=== PATIENT | female | born 1960 | race Caucasian/White ===

== ENCOUNTER 2020-11-30 13:06 | Outpatient (CLI) | payer MEDICAID, SELFPAY ==
--- NOTE | ~2020-11-30 | MM_ITS ---
EXAMINATION: MM screening patricia BI w prabhu HISTORY: Screening TECHNIQUE: Craniocaudal and mediolateral oblique 3-D tomosynthesis images were obtained and synthetic 2-D images were generated. CAD analysis was submitted and interpreted. COMPARISON: Comparison to multiple prior studies sequentially, with oldest reviewed study dated 04/28. BREAST PARENCHYMAL COMPOSITION: The breasts are almost entirely fatty. FINDINGS: There is no evidence of suspicious mass, calcification, or architectural distortion to sugg est malignancy in either breast. There has been no suspicious interval change. IMPRESSION: 1. No mammographic evidence of malignancy. 2. Recommend routine screening mammography in one year. BI-RADS Category 1: Negative Reviewed, dictated and finalized at location A.
== END 2020-11-30 13:07 | disposition home or self-care (01) ==
LOC: ANHIMG 13:09
PROVIDERS: PCP Family Medicine; Visit Provider Family Medicine
DX: Z12.31 Encounter for screening mammogram for malignant neoplasm of breast (principal)
CPT/HCPCS: 77063; 77067

== ENCOUNTER 2022-02-02 13:12 | Outpatient (CLI) | payer MEDICAID, SELFPAY ==
--- NOTE | ~2022-02-02 | XR_ITS ---
XR_CERV2-3V_CR DATE: 02/02/2022 13:37 INDICATION: Neck and thoracic back pain TECHNIQUE: AP, open-mouth, lateral views COMPARISON: None FINDINGS: C1 and C2 are normally aligned and the odontoid process is intact. No fracture or dislocati on or locked facet or prevertebral soft tissue swelling is evident. Moderately severe degenerative disc disease with posterior spurring at C5-6 and C6-7. There is uncove rtebral joint spurring at C4-5 and particularly prominently at C5-6 and C6-7. IMPRESSION: Cervical spondylosis Reviewed, dictated and finalized at Location A. Reviewed, dictated and finalized at location A. IMPRESSION: Cervical spondylosis
--- NOTE | ~2022-02-02 | XR_ITS ---
XR thoracic spine 3V DATE: 02/02/2022 13:37 INDICATION: Thoracic back pain TECHNIQUE: AP, lateral, swimmer views COMPARISON: None FINDINGS: There is mild to moderate degenerative spurring of the thoracic spine. No fracture or dislo cation or bone destruction. The thoracic pedicles are intact. No paraspinal soft tissue thickening. IMPRESSION: Mild to moderate degenerative spurring Reviewed, dictated and finalized at location A.
== END 2022-02-02 13:13 | disposition home or self-care (01) ==
LOC: ANHIMG 13:18
PROVIDERS: PCP Physician Assistant; Visit Provider Physician Assistant
DX: M54.2 Cervicalgia (principal); M54.6 Pain in thoracic spine; M77.8 Other enthesopathies, not elsewhere classified; M43.02 Spondylolysis, cervical region
CPT/HCPCS: 72040; 72072

== ENCOUNTER 2022-05-26 10:21 | Emergency (ER) | payer MEDICAID, SELFPAY ==
[2022-05-26 10:48] VITALS: BP 159/123; PULSE 108; RESP 18; TEMP 36.8; O2SAT 94
[2022-05-26 11:48] LABS: Basophils Absolute Auto 0.1 K/mm3 (0.0-0.1); Basophils Percent Auto 0.7 % (0.2-1.2); Eosinophils Absolute Auto 0.2 K/mm3 (0-0.3); Eosinophils Percent Auto 2.4 % (0-4.4); Hematocrit 45.4 % (37.0-47.0); Hemoglobin 15.1 g/dL (12.0-15.0); Immature Granulocyte Absolute 0.04 K/mm3 (0.00-0.031); Immature Granulocyte Percent A 0.5 % (0-0.5); Lymphocytes Absolute Auto 2.13 K/mm3 (0.9-3.2); Lymphocytes Percent Auto 25.4 % (18.3-44.2); Mean Corpuscular HGB Conc 33.3 g/dl (32-36); Mean Corpuscular Hemoglobin 31.3 pg (26-34); Mean Corpuscular Volume 94.2 fl (80-100); Mean Platelet Volume 8.9 fl (7.4-10.4); Monocytes Absolute Auto 0.6 K/mm3 (0.1-0.6); Monocytes Percent Auto 7.6 % (2.6-8.5); Neutrophils Absolute Auto 5.3 K/mm3 (1.3-6.7); Neutrophils Percent Auto 63.4 % (45.5-73.1); Platelet Count Result 363 k/mm3 (150-375); Red Blood Count 4.82 M/mm3 (4.2-5.4); Red Cell Distribution Width 14.9 % (11.5-14.5); White Blood Count 8.4 K/mm3 (4.5-10.0)
[2022-05-26 11:59] LABS: Lactic Acid Reflex 1.6 mmol/L (0.7-2.0)
[2022-05-26 12:45] LABS: INR 1.1; Prothrombin Time 13.4 Seconds (11.1-14.7)
[2022-05-26 12:46] LABS: Partial Thromboplastin Time 35.8 SECONDS (22.3-36.8)
[2022-05-26 13:24] LABS: Alanine Aminotransferase 22 U/L (6-35); Albumin Level 4.1 g/dL (3.5-5.1); Alkaline Phosphatase 120 U/L (38-126); Anion Gap 2 mmol/L (8-16); Aspartate Amino Transferase 30 U/L (14-36); Bilirubin,Total 0.5 mg/dL (0.2-1.3); Blood Urea Nitrogen 14 mg/dL (7-17); Calcium 9.5 mg/dL (8.4-10.2); Carbon Dioxide 34 mmol/L (22-30); Chloride 96 mmol/L (98-107); Estimated CRCL calculation 85 ml/min; Estimated Glomerular Filt Rate > 60; Glucose 117 mg/dL (65-110); Potassium 4.4 mmol/L (3.4-5.0); Sodium 132 mmol/L (137-145)
[2022-05-26] MEDS: SILVERGEL (ELTA) 45 ML 1 APPLIC TOPICAL (13:31)
--- NOTE | 2022-05-26 13:41 | ED.LOWEXIN ---
HPI - Extremity Injury (Lower) General Chief Complaint: Extremity Injury, Lower Stated Complaint: Wound check on Left leg from fall a few weeks ago Time Seen by Provider: 05/26/22 10:31 History of Present Illness HPI Narrative: Patient is a 61-year-old female who presents ER with a wound to her left peralta. She had a trip and fall 2 weeks ago when she was walking outside and skinned her peralta. She has not been treating it with any medications at home. Noticed today that it was black and malodorous. No fevers chills or sweats. No chest pain or chest pressure. No head trauma. Related Data Home Medications Medication Instructions Recorded Confirmed budesonide-formoterol HFA 160 2 puff inhalation .COMPLEX 09/08/19 mcg-4.5 mcg/actuation aerosol inhaler (Symbicort) Allergies Allergy/AdvReac Type Severity Reaction Status Date / Time sertraline Allergy Intermediate Itching Verified 07/21/15 15:43 Sulfa (Sulfonamide Allergy Unknown Unknown Verified 05/26/22 10:22 Antibiotics) Review of Systems Review of Systems: All systems reviewed & are unremarkable except as noted in HPI and below Constitutional: Constitutional: Denies chills, Denies fatigue and Denies fever(s) ENT: Denies nasal congestion and Denies sore throat Cardiovascular: Cardiovascular: Denies chest pain, Denies rapid heart rate and Denies radiating jaw, neck or arm pain Respiratory: Respiratory: Denies cough and Denies dyspnea Gastrointestinal: Gastrointestinal: Denies abdominal pain, Denies nausea and Denies vomiting Integumentary/Breasts: Skin/Breast: Denies pruritus and Denies rash Comments: wound to left peralta PMFSH Past Medical History Medical History (Updated 05/26/22 @ 13:56 by Dewayne Quintero MD) Anxiety disorder, unspecified Asthma with COPD (chronic obstructive pulmonary disease) Essential hypertension Major depressive disorder, recurrent, unspecified Nodule of left lung Screening for hyperlipidemia Family History Family History (Updated 12/24/10 @ 16:39 by DOCTOR UNKNOWN) Other Diabetes mellitus Hypertension Social History Social History Smoking status: Current every day smoker Alcohol intake: current Exam Narrative: GENERAL: Well-appearing, well-nourished, and in no acute distress. HEAD: Normocephalic, atraumatic. CHEST: Clear to auscultation. No respiratory distress. HEART: Regular rate and rhythm. Normal peripheral pulses. EXTREMITIES: Normal range of motion. No edema. SKIN: Warm, dry. Nonhealing wound to the left peralta. There is a flap laceration that measures 15 cm that is black and necrotic and dry. Beneath it is some foul-smelling tissue. The wound edges that are not involved with flap also has some early necrosis. No surrounding cellulitis or lymphangitic streaking. NEURO: Alert and oriented x3. PSYCH: Normal mood and affect. Course Course Emergency Course: Patient resting comfortably. Silver gel applied to her wound. Discussed case with Dr. Gallegos with general surgery. Recommend silver gel application and follow-up in clinic next week. Patient agreeable to plan. No additional concerns. Normal lactate and white count. Vital Signs Vital signs: Vital Signs Temperature 98.3 F 05/26/22 10:48 Pulse Rate 108 H 05/26/22 10:48 Respiratory Rate 18 05/26/22 10:48 Blood Pressure 159/123 H 05/26/22 10:48 Pulse Oximetry 94 05/26/22 10:48 Oxygen Delivery Room Air 05/26/22 10:48 Temperature 98.3 F 05/26/22 10:48 Pulse Rate 108 H 05/26/22 10:48 Respiratory Rate 18 05/26/22 10:48 Blood Pressure 159/123 H 05/26/22 10:48 Pulse Oximetry 94 05/26/22 10:48 Oxygen Delivery Room Air 05/26/22 10:48 MDM - Extremity Injury (Lower) Lab Data 05/26/22 11:39 05/26/22 12:29 Labs: Lab Results 05/26/22 05/26/22 05/26/22 Range/Units 11:39 11:39 12:29 WBC 8.4 (4.5-10.0) K/mm3 RBC 4.82 (4.2-5.4) M/mm3 Hgb 15.1 H
[2022-05-26 14:14] VITALS: BP 143/96; PULSE 99; RESP 20; O2SAT 100
== END 2022-05-26 14:17 | disposition home or self-care (01) ==
PROVIDERS: Emergency Provider Emergency Medicine; PCP Physician Assistant
DX: S81.802A Unspecified open wound, left lower leg, initial encounter (principal); I10 Essential (primary) hypertension; F41.9 Anxiety disorder, unspecified; F33.9 Major depressive disorder, recurrent, unspecified; F17.200 Nicotine dependence, unspecified, uncomplicated; W01.0XXA Fall on same level from slipping, tripping and stumbling without subsequent striking against object, initial encounter
CPT/HCPCS: 36415; 80053; 83605; 85025; 85610; 85730; 87040; 87070; 87205; 99283

== ENCOUNTER 2022-08-08 12:45 | Outpatient (RCR) | payer MEDICAID, SELFPAY ==
--- NOTE | 2022-07-03 13:14 | PTOPEVAL1 ---
Assessment and note entered by Anil Noonan, PT Evaluation Information Assessment Status Evaluation Diagnosis muscle weakness Subjective Information Patient reports she has been having trouble with stairs, walking, getting out of low chairs, and getting off the floor, the last two unable to do without assistance. She reports also having endurance issues unsure if it is just seasonal allergy or what, but easily getting short of breath. Also was told she has degenerative disc disease in her lower back. No actual falls yet. Assessment PT Clinical Summary Sherri is a 61 year old female coming into the clinic with a diagnosis of lower extremity weakness. The patient has weakness in JUAN M hip extension and abduction and the knee with the R side weaker than the L side, showing S/S of some sort of back impingement. Physical therapy will work on lower extremity strengthening along with core strengthening and working on endurance. Plan of Care Interventions Electrical Stimulation,Gait Training,Hot Pack/Cold Pack,Manual Therapy,Mechanical Traction,Neuro Re- education,Patient/Caregiver Education,Therapeutic Activities,Therapeutic Exercise,Ultrasound Other Interventions taping, cupping, and IASTM PT Services Indicated Yes Treatment Frequency and 1-2x/wk for 4 weeks Duration These treatments will address the objective and functional deficits as defined above. The patient will be advanced safely and appropriately in order for the patient to progress towards his/her prior level of function. Additional exercises will be introduced and as well as a comprehensive home exercise program upon discharge, if needed, ?to ensure carryover of functional gains achieved in the clinic. This treatment plan has been reviewed and agreement upon by the patient.
--- NOTE | 2022-07-06 08:01 | PCPTNOTE ---
Patient called & cancelled scheduled appointment this date due to being sick.
--- NOTE | 2022-08-08 13:19 | PTOPDC ---
Assessment and note entered by Anil Noonan, PT Evaluation Information Assessment Status Discharge Diagnosis muscle weakness Subjective Information Patient reports her main problem is her SOB, that is more limiting than her back or legs. She reports still having trouble going up and down her son's steps. She has gotten paperwork from her doctor for a handicap parking sticker and is seeing a back surgeon, but unsure when. Reported Pain Level Pain Score Moderate Pain: Sergio Holt Additional Pain Score Comments in her back, but it is just there, doesn't really get better or worse. Assessment PT Clinical Summary Sherri is a 62 year old female coming into the clinic with a diagnosis of muscle weakness. She was evaluated on 07/02/22 and attended 7 sessions. She met her strengthening goals, but they did not translate into improving functional mobility or pain. Recommend discharge from skilled physical therapy and let patient talk to back doctor about her options. Also feel her HUNG should be checked out. Plan of Care PT Services Indicated No
== END 2022-08-09 15:24 | disposition home or self-care (01) ==
LOC: ANHPT 12:45
PROVIDERS: PCP Physician Assistant; Visit Provider Physician Assistant
DX: M62.81 Muscle weakness (generalized) (principal)
CPT/HCPCS: 97110; 97161; 97530; 99213; A9270; G0463

== ENCOUNTER 2022-09-05 07:22 | Outpatient (RCR) | payer MEDICAID, SELFPAY | END 2022-09-11 23:59 | disposition home or self-care (01) | LOC: ANHWOC 07:22 | PROVIDERS: PCP Physician Assistant; Visit Provider Surgery | DX: S81.802D Unspecified open wound, left lower leg, subsequent encounter (principal) | CPT/HCPCS: 99213; 99214; A9270; G0463 ==

== ENCOUNTER 2022-11-28 07:11 | Outpatient (RCR) | payer MEDICAID, SELFPAY ==
--- NOTE | 2022-12-19 13:22 | PCWOUND ---
Patient did not show up for her appointment. Left voicemail for patient to contact office if appointment needed to be rescheduled.
== END 2022-12-25 23:59 | disposition home or self-care (01) ==
LOC: ANHWOC 07:11
PROVIDERS: PCP Physician Assistant; Visit Provider Surgery
DX: S81.802D Unspecified open wound, left lower leg, subsequent encounter (principal)
CPT/HCPCS: 99213; A9270; G0463

== ENCOUNTER 2023-01-23 07:24 | Outpatient (RCR) | payer MEDICAID, SELFPAY ==
--- NOTE | 2023-02-20 09:13 | PCWOUND ---
WOCN NOTE Patient called to cancel, states her wound is healed.
== END 2023-03-11 10:07 | disposition home or self-care (01) ==
LOC: ANHWOC 07:24
PROVIDERS: PCP Physician Assistant; Visit Provider Surgery
DX: S81.802D Unspecified open wound, left lower leg, subsequent encounter (principal)
CPT/HCPCS: 99213; A9270; G0463

== ENCOUNTER 2023-09-14 14:17 | Emergency (ER) | payer MEDICAID, SELFPAY ==
[2023-09-14] VITALS (7 sets, daily range): BP systolic 119–146; BP diastolic 65–100; PULSE 76–90; RESP 16–20; TEMP 36.6; O2SAT 95–98
--- NOTE | ~2023-09-14 | CT_ITS ---
CT diagnostic chest wo con Ordering provider: Dewayne Quintero MD History: 63 years Female with . lung nodule . Comparison: None. Technique: CT chest without IV contrast. Radiation reduction technique utilized. DLP is 517.71mGy FINDINGS: VISUALIZED THORACIC INLET: Normal. MEDIASTINUM: Aorta/coronary arteries: Mild atheromatous disease. Heart/other: The heart is not enlarged. Lymph nodes: No mediastinal or hilar adenopathy. LUNGS: Nodule is seen in the left upper lobe measuring 1.2 x 1.1 with irregular outline another one i s seen peripherally which measures 1.3 cm and most likely involving the adjacent rib PET scan for fur ther evaluation advised. No infiltrates or effusions. No pneumothorax. VISUALIZED UPPER ABDOMEN: Cholelithiasis. Thickened wall of the stomach. Otherwise, the visualized up per abdomen is normal. MUSCULOSKELETAL: Soft tissues: The superficial soft tissues are normal. Bones: Age appropriate degenerative changes of the spine. Healing rib fractures seen in the left 3rd and sixth ribs IMPRESSION: 1. Nodules in the left upper lobe. Three-month follow-up or PET CT scan is advised. 2. Rib fractures in the left hemithorax. 3. Cholelithiasis. Reviewed, dictated and finalized at location A. IMPRESSION: 1. Nodules in the left upper lobe. Three-month follow-up or PET CT scan is adv ised. 2. Rib fractures in the left hemithorax. 3. Cholelithiasis.
--- NOTE | ~2023-09-14 | XR_ITS ---
XR chest 2V Ordering provider: Tyler Huber MD History: 63 years Female with . SMOKER,SHORT OF BREATH . Comparison: August 24, 2015 FINDINGS: MEDIASTINUM: The cardiac silhouette is not enlarged. LUNGS: No effusion or pneumothorax. Prominent markings in the lower lobes with interstitial changes w hich may indicate pneumonitis. Opacity in the left upper lobe which may be a Nodule is seen in the le ft upper lobe. CT evaluation advised. OTHER: Degenerative spine. No free air under the diaphragm. IMPRESSION: Prominent markings in the lower lobes which may indicate pneumonitis. Clinical correlation and follow -up advised. Possible nodule in the left upper lobe. CT evaluation advised. Reviewed, dictated and finalized at location A. IMPRESSION: Prominent markings in the lower lobes which may indicate pneumonitis. Clinical correlation and follow-up advised. Possible nodule in the left upper lobe. CT evaluation advised.
[2023-09-14] MEDS: ALBUTEROL SULFATE NEB 2.5 MG/3 ML INH INHALATION (17:10)
[2023-09-14] MEDS: IPRATROPIUM BR 0.02% INH SOLN 0.5 MG/2.5 ML VIAL INHALATION (17:10)
--- NOTE | 2023-09-14 17:50 | PC.NURSE ---
Pt refusing BP cuff at this time. BP cuff inflating and pt states, I can't take this shit and took BP cuff off while inflating. Pt educated on importance of monitoring vital signs and pt stated, I don't care. I can't do it.
[2023-09-14 18:11] LABS: Basophils Percent Auto 0.5 % (0.2-1.2); Eosinophils Absolute Auto 0.3 K/mm3 (0-0.3); Eosinophils Percent Auto 4.2 % (0-4.4); Hematocrit 44.1 % (37.0-47.0); Hemoglobin 14.8 g/dL (12.0-15.0); Immature Granulocyte Absolute 0.03 K/mm3 (0.00-0.031); Immature Granulocyte Percent A 0.4 % (0-0.5); Lymphocytes Absolute Auto 1.51 K/mm3 (0.9-3.2); Lymphocytes Percent Auto 20.3 % (18.3-44.2); Mean Corpuscular HGB Conc 33.6 g/dl (32-36); Mean Corpuscular Hemoglobin 30.3 pg (26-34); Mean Corpuscular Volume 90.2 fl (80-100); Mean Platelet Volume 8.3 fl (7.4-10.4); Monocytes Absolute Auto 0.4 K/mm3 (0.1-0.6); Monocytes Percent Auto 4.7 % (2.6-8.5); Neutrophils Absolute Auto 5.2 K/mm3 (1.3-6.7); Neutrophils Percent Auto 69.9 % (45.5-73.1); Platelet Count Result 320 k/mm3 (150-375); Red Blood Count 4.89 M/mm3 (4.2-5.4); Red Cell Distribution Width 14.2 % (11.5-14.5); White Blood Count 7.5 K/mm3 (4.5-10.0)
[2023-09-14 18:21] LABS: INR 1.1; Prothrombin Time 14.4 Seconds (11.1-14.7)
[2023-09-14 18:22] LABS: Partial Thromboplastin Time 33.5 Seconds (22.3-36.8)
[2023-09-14 18:25] LABS: Alanine Aminotransferase 12 U/L (6-35); Albumin Level 4.2 g/dL (3.5-5.1); Alkaline Phosphatase 126 U/L (38-126); Anion Gap 5 mmol/L (4-12); Aspartate Amino Transferase 24 U/L (14-36); Bilirubin,Total 0.8 mg/dL (0.2-1.3); Blood Urea Nitrogen 8 mg/dL (7-17); Calcium 9.4 mg/dL (8.4-10.2); Carbon Dioxide 31 mmol/L (22-30); Chloride 93 mmol/L (98-107); Estimated CRCL calculation 86 ml/min; Estimated Glomerular Filt Rate > 60; Glucose 91 mg/dL (65-110); Potassium 4.6 mmol/L (3.4-5.0); Sodium 129 mmol/L (137-145)
[2023-09-14 18:36] LABS: NT Pro B Type Natriuretic Pept 713 pg/mL (19.9-100); Troponin I < 0.012 ng/mL (0.000-0.034)
--- NOTE | 2023-09-14 19:41 | ED.GENADULT ---
HPI - General Adult General Chief complaint: Shortness of Breath/Dyspnea <Dewayne Quintero MD - Last Filed: 09/14/23 20:30> Stated complaint: sob <Dewayne Quintero MD - Last Filed: 09/14/23 20:30> Time Seen by Provider: 09/14/23 16:22 <Dewayne Quintero MD - Last Filed: 09/14/23 20:30> History of Present Illness HPI narrative: Patient is 63-year-old female with history of tobacco abuse that presents ER with shortness of breath. Worsening over last 3 days but also has been worse over last 2 weeks. No fevers or chills. Occasional cough. Reports mild orthopnea. No chest pain or chest pressure. No alleviating factors. <Dewayne Quintero MD - Last Filed: 09/14/23 20:30> Related Data Home medications: Home Medications Medication Instructions Recorded Confirmed budesonide-formoterol HFA 160 2 puff inhalation .COMPLEX 09/08/19 06/13/22 mcg-4.5 mcg/actuation aerosol inhaler (Symbicort) Biotin Plus-Calcium and Vit D3 06/13/22 losartan 100 mg tablet 100 mg PO DAILY 06/13/22 06/13/22 metoprolol tartrate 50 mg tablet 50 mg PO BID 06/13/22 06/13/22 nortriptyline 50 mg capsule 50 mg PO DAILY 06/13/22 06/13/22 <Dewayne Quintero MD - Last Filed: 09/14/23 20:30> Allergies/adverse reactions: Allergies Allergy/AdvReac Type Severity Reaction Status Date / Time sertraline Allergy Intermediate Itching Verified 09/14/23 20:06 Sulfa (Sulfonamide Allergy Unknown Unknown Verified 09/14/23 20:06 Antibiotics) <Dewayne Quintero MD - Last Filed: 09/14/23 20:30> Review of Systems Review of Systems: All systems reviewed & are unremarkable except as noted in HPI and below <Dewayne Quintero MD - Last Filed: 09/14/23 20:30> Constitutional: Constitutional: Reports no additional constitutional complaints <Dewayne Quintero MD - Last Filed: 09/14/23 20:30> Cardiovascular: Cardiovascular: Reports no additional cardiovascular complaints <Dewayne Quintero MD - Last Filed: 09/14/23 20:30> Respiratory: Respiratory: Reports cough, Reports dyspnea and Reports wheezing <Dewayne Quintero MD - Last Filed: 09/14/23 20:30> Gastrointestinal: Gastrointestinal: Reports no additional gastrointestinal complaints <Dewayne Quintero MD - Last Filed: 09/14/23 20:30> Musculoskeletal: Musculoskeletal: Reports no additional musculoskeletal complaints <Dewayne Quintero MD - Last Filed: 09/14/23 20:30> [facility] Past Medical History Medical History: Medical History Anxiety disorder, unspecified Asthma with COPD (chronic obstructive pulmonary disease) Essential hypertension Major depressive disorder, recurrent, unspecified Nodule of left lung Screening for hyperlipidemia <Dewayne Quintero MD - Last Filed: 09/14/23 20:30> Family History Family History: Family History Other Diabetes mellitus Hypertension <Dewayne Quintero MD - Last Filed: 09/14/23 20:30> Social History Social History: Social History (Updated 05/28/22 @ 14:13 by Deyanira Mays) Smoking packs per day: 1 Smoking cigarettes per day: 20.0 Years smoked: 40 Smoking pack-years: 40.00 Smoking status: Current every day smoker Alcohol intake: current <Dewayne Quintero MD - Last Filed: 09/14/23 20:30> Exam Narrative: GENERAL: Chronically ill-appearing, obese, and in no acute distress. HEAD: Normocephalic, atraumatic. ENT: Mucous membranes moist. NECK: Supple. CHEST: diminished breath sounds bilaterally without wheezing.. No respiratory distress. HEART: Regular rate and rhythm. Normal peripheral pulses EXTREMITIES: Normal range of motion. No edema. SKIN: Warm, dry, no rash. NEURO: Alert and oriented x3. PSYCH: Normal mood and affect. <Dewayne Quintero MD - Last Filed: 09/14/23 20:30> Course Course Emergency Course: Patient with less
--- NOTE | 2023-09-14 19:52 | PC.NURSE ---
Report received from KEVIN Field. Assumed care of patient at this time.
[2023-09-14] MEDS: IPRATROPIUM 0.5 MG/ALBUTEROL SULFATE 2.5 MG AMPUL.NEB 3 ML 6 ML INHALATION (22:23)
== END 2023-09-14 23:24 | disposition home or self-care (01) ==
PROVIDERS: Emergency Provider Emergency Medicine; PCP Physician Assistant
DX: J44.1 Chronic obstructive pulmonary disease with (acute) exacerbation (principal); I10 Essential (primary) hypertension; F41.9 Anxiety disorder, unspecified; F33.9 Major depressive disorder, recurrent, unspecified; F17.210 Nicotine dependence, cigarettes, uncomplicated; Z79.899 Other long term (current) drug therapy
CPT/HCPCS: 36415; 71046; 71250; 80053; 83880; 84484; 85025; 85610; 85730; 94640; 99284

== ENCOUNTER 2023-10-08 08:43 | Outpatient (CLI) | payer MEDICAID, SELFPAY ==
--- NOTE | ~2023-10-08 | PE_ITS ---
EXAMINATION: PET skull to mid thigh DATE: 10/08/2023 11:34 INDICATION: Lung nodule. TECHNIQUE: Blood glucose level was 82 mg/dL. 10.351 mCi of 18-fluorodeoxyglucose (18-FDG) was adminis tered i.v. Low dose computed tomography (CT) images were acquired from the base of the brain to the p roximal thighs for attenuation correction and anatomic localization. Automated exposure control was e mployed. Dose-length product (DLP) was 1190 mGy-cm. Positron emission tomography (PET) images were ac quired in the same distribution. COMPARISON: Chest CT 09/14/2023, 09/02/2015 FINDINGS: Head/neck: There are no pathologically enlarged lymph nodes. Chest: There is mild emphysema. There is a 17 mm part solid nodule in left upper lobe with maximum HENDRICKSON V of 8.5. There is a 10 mm nodule with maximum SUV of 5.1 in left upper lobe. There is mild atelectas is bilaterally. No pleural effusion. The heart size is normal. There are coronary artery calcificatio ns. No pericardial effusion. There is increased activity in much of the musculature, likely physiolog ic. There is an old left rib fracture. There is increased activity at the glenohumeral joints with se shawn osteoarthritis by CT. Abdomen/pelvis/proximal thighs: The liver is normal. There are gallstones in the gallbladder, which i s normal in size. The spleen, pancreas, adrenal glands, and kidneys are normal. There is diverticulos is of the colon without evidence of diverticulitis. The appendix is normal. There are no pathological ly enlarged lymph nodes. There is no free intraperitoneal fluid. There is no osseous malignancy. IMPRESSION: 1. Left upper lobe pulmonary nodules with increased activity, stable from 09/14/23, which may be pneum onia or malignancy. CT-guided biopsy is recommended. Reviewed, dictated and finalized at location E. IMPRESSION: 1. Left upper lobe pulmonary nodules with increased activity, stable from , which may be pneumonia or malignancy. CT-guided biopsy is recommended.
[2023-10-08 09:24] LABS: Glucose Point of Care 82 mg/dl (65-105)
== END 2023-10-08 08:44 | disposition home or self-care (01) ==
PROVIDERS: PCP Physician Assistant; Visit Provider Internal Medicine Hematology & Oncology
DX: R91.1 Solitary pulmonary nodule (principal); R91.8 Other nonspecific abnormal finding of lung field
CPT/HCPCS: 78815; A9552

== ENCOUNTER 2023-10-21 08:38 | Outpatient (CLI) | payer MEDICAID, SELFPAY ==
--- NOTE | 2023-10-17 09:49 | PC.NURSE ---
Pre Radiology instructions Report to the outpatient ted dickson on date _[id number]_ at time _0900_ for procedure Time: _1100_ YOU MAY BE MONITORED AT HOSPITAL FOR UP TO 4 HOURS AFTER YOUR PROCEDURE. A visitor will be allowed to accompany the patient into the hospital. You and your visitor will be asked to self-screen and do not enter if you have any COVID symptoms. A mask is OPTIONAL within the hospital. Patients are to have no food or drink 6 hours prior to procedure time Driving will be restricted after the procedure, you must have a person to drive you home. Labs will be drawn in preop area and once reviewed, you will be taken to radiology area for procedure. When the procedure is completed, you will be taken to outpatient where you will be monitored for several hours. You may have one visitor in this area. Other than holding anti-coagulants, patient may take other medication(s) as scheduled. Prior to your appointment date patients are instructed to hold anti-coagulants after discussing with ordering provider to stop. If unable to discontinue anti-coagulants please notify radiologist. ? No aspirin or warfarin (Coumadin) for 7 days prior to the procedure. ? No clopidogrel (Plavix), ticagrelor (Brilinta), prasugrel (Effient) or dabigatran (Pradaxa) for 5 days prior to the procedure. ? No rivaroxaban (Xarelto), apixaban (Eliquis), dipyridamole (Aggrenox or Persantine) or cilostazol (Pletal) for 2 days prior to the procedure. Medications to discontinue per physician: Date to take last dose: Please leave all valuables, including medications, at home the day of procedure. The hospital will not accept responsibility for valuables. Wear comfortable, loose fitting clothing.? Follow any additional instructions given to you from ordering provider. Telephone instructions given to _Sherri and asked if any additional questions and then verbalized understanding. Patient advised to call scheduling provider office or registration scheduling [phone] if any additional questions.
[2023-10-17 09:53] VITALS: BMI 42.3
[2023-10-21] VITALS (12 sets, daily range): BP systolic 114–146; BP diastolic 40–84; PULSE 73–92; RESP 18–20; TEMP 36.5; O2SAT 91–100
--- NOTE | ~2023-10-21 | XR_ITS ---
EXAMINATION: XR chest 1V DATE: 10/21/2023 11:54 INDICATION: Status post percutaneous left lung biopsy TECHNIQUE: frontal view of the chest was obtained. COMPARISON: Chest radiograph dated 09/14/2023 FINDINGS: There is expected postbiopsy pulmonary hemorrhage surrounding the previously seen nodules in the left upper lobe. Remainder of the lungs are clear. No pleural effusion or pneumothorax. The cardiomediast inal silhouette is normal. 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 IMPRESSION: 1. Pulmonary hemorrhage surrounding the biopsied left upper lobe nodule. No pneumothorax. Reviewed, dictated and finalized at location A. IMPRESSION: 1. Pulmonary hemorrhage surrounding the biopsied left upper lobe nodule. No pne umothorax.
--- NOTE | ~2023-10-21 | CT_ITS ---
EXAMINATION: CT biopsy lung w/imaging DATE: 10/21/2023 11:53 INDICATION: FDG avid left upper lobe nodules concerning for primary bronchogenic carcinoma. TECHNIQUE: The procedure including the risks and benefits was discussed with the patient. Risks discu ssed included infection, approximately 1/20 risk of symptomatic hemorrhage beyond mild hemoptysis, ap proximately 1/3 risk of pneumothorax, and approximately 1/10 risk of pneumothorax severe enough to wa rrant chest tube placement. The patient understood the risks and agreed to proceed. The patient was p laced supine. The skin overlying the left anterior upper chest was prepped and draped in sterile fas hion. Anesthetic was administered with 1% lidocaine subcutaneously. A 19 gauge outer needle was adv anced under CT guidance to the lesion of interest. A 20 gauge core biopsy needle was then used to obt ain 5 core biopsy specimens. The needle was removed and the entry site was cleaned and dressed. Ther e were no immediate complications. The dose-length product was 129.48 mGy-cm. FINDINGS: CT images demonstrate the 2 spiculated left upper lobe nodules the larger and more medial m easuring 1.7 x 1.6 cm and the smaller nodule close to the pleura measuring 1.9 x 0.8 cm. Subsequent i mages demonstrate the outer needle tip adjacent to the larger more medial nodule. There is moderate a mount of postbiopsy pulmonary hemorrhage situated along the opposite side of the biopsied nodule. IMPRESSION: 1. Successful CT-guided biopsy of the larger more medial 1.7 x 1.6 m FDG avid spiculated nodule in th e left upper lobe. Reviewed, dictated and finalized at location A. IMPRESSION: 1. Successful CT-guided biopsy of the larger more medial 1.7 x 1.6 m FDG avid s piculated nodule in the left upper lobe.
--- NOTE | ~2023-10-21 | XR_ITS ---
XR chest 1V portable 10/21/2023 12:47 Indication: Post image guided biopsy. Procedure: AP portable chest Comparison: 10/21/2023 Findings: There is focal infiltrates of the left upper lobe which may reflect hemorrhage post biopsy. No definite pneumothorax identified. Right lung clear. Heart size normal. No acute osseous abnormali ty. Impression: 1: Stable focal left upper lobe infiltrates, most likely post biopsy hemorrhage. Reviewed, dictated and finalized at location B. Impression: 1: Stable focal left upper lobe infiltrates, most likely post biopsy hemorrhage .
--- NOTE | ~2023-10-21 | XR_ITS ---
XR chest 1V portable 10/21/2023 14:50 Indication: Post image guided lung biopsy. Procedure: AP upright view of the chest Comparison: Comparison to multiple prior studies sequentially, with oldest reviewed study dated 09/13. Findings: There is focal airspace disease of the left upper thorax, presumably hematoma secondary to recent biopsy. Heart size is stable. Right lung clear. No pleural effusion or pneumothorax. Impression: 1: Stable left upper thoracic airspace disease, likely parenchymal hemorrhage. Reviewed, dictated and finalized at location B. Impression: 1: Stable left upper thoracic airspace disease, likely parenchymal hemorrhage.
[2023-10-21 09:31] LABS: Mean Platelet Volume 8.8 fl (7.4-10.4); Platelet Count Result 349 k/mm3 (150-375)
[2023-10-21] MEDS: SODIUM CHLORIDE 0.9% IV 1,000 ML 30 ML IV CONT (09:38)
[2023-10-21 09:39] LABS: Prothrombin Time 13.3 Seconds (11.1-14.7)
== END 2023-10-21 16:10 | disposition home or self-care (01) ==
PROVIDERS: PCP Physician Assistant; Referring Provider Internal Medicine Hematology & Oncology; Visit Provider Radiology Diagnostic Radiology
PROC: BB24ZZZ Computerized Tomography (CT Scan) of Bilateral Lungs (ICD-10-PCS; CPT 32408; principal; 2023-10-21 11:00)
DX: Z01.818 Encounter for other preprocedural examination (principal); C34.12 Malignant neoplasm of upper lobe, left bronchus or lung
CPT/HCPCS: 32408; 36415; 71045; 85049; 85610; 88305; 88342; J7030

== ENCOUNTER 2023-11-06 12:40 | Outpatient (CLI) | payer MEDICAID, SELFPAY ==
--- NOTE | 2023-11-06 16:28 | WPDPFTINT ---
PFT Procedure Performed PFT Procedure Performed Spirometry with Pre/Post Bronchodilator Plethysmography (Lung Vol) Diffusing Cap (DLCO) Flow Vol Loop PFT Interpretation This is a pulmonary function test with pre and post-bronchodilator spirometry, plethysmography and diffusing capacity. The test was performed and results interpreted in accordance with the 2019 and 2005 ATS/ERS Task Force guidelines respectively using the Global Lung Function Initiative-2012 reference equations. Patient demonstrated good effort and cooperation. Reproducibility criteria were met. The quality of the pre bronchodilator spirometry maneuver was Grade A and post bronchodilator spirometry maneuver was Grade A. Findings: Spirometry: There is decreased maximal expiratory airflow at all lung volumes with concave expiratory flow tracing. The contour the expiratory flow tracing demonstrates a reproducible oscillating or saw tooth pattern. The contour the inspiratory flow tracing is normal. The pre bronchodilator FVC is 1.33 L, 50% predicted. The pre bronchodilator FEV1 is 0.54 L, 25% predicted. The pre bronchodilator FEV1: FVC ratio is 40%. The post bronchodilator FVC is 1.41 L, representing a 6% increase. The post bronchodilator FEV1 is 0.48 L, representing a 10% decrease. The post bronchodilator FEV1: FVC ratio is 34%. Plethysmography: The total lung capacity is 6.37 L, 144% predicted. The functional residual capacity is 3.36 L, 135% predicted. The residual volume is 3.33 L, 183% predicted. The residual volume: Total lung capacity ratio is 52%. Diffusing capacity: The diffusing capacity unadjusted for hemoglobin and carboxyhemoglobin is 9.4, 48% predicted. The diffusing capacity adjusted for alveolar volume is 3.85, 84% predicted. Impression: The contour the expiratory flow tracing demonstrates a reproducible oscillating or sawtooth pattern. This is usually generated either by air flow disturbances in the upper airway or from tremors of the respiratory muscles. This has been associated with sleep apnea, obesity, snorers without obstructive sleep apnea, upper airway injury, upper airway stenosis, tracheobronchomalacia, neuromuscular disorders with bulbar involvement, burn injury of the upper airway, diaphragmatic myoclonus, and herpes zoster of abdominal muscles. Clinical correlation is recommended. There is a very severe obstructive abnormality. There is no significant improvement after inhaling a single dose of albuterol. The increase in residual volume to total lung volume ratio is consistent with hyperinflation from an obstructive abnormality. The diffusing capacity unadjusted for hemoglobin and carboxyhemoglobin is moderately decreased and normalizes when adjusted for alveolar volume. There are no prior studies for comparison
--- NOTE | 2023-11-21 11:43 | WPDSIXMINUTE ---
Six Minute Walk Procedure Procedure Performed Pulmonary Stress Test (6 min walk) Six Minute Walk Six Minute Walk: DATE OF SERVICE: 11/06/2023 REQUESTING: Dr Hassan REASON FOR TESTING: COPD SIX MINUTE WALK This test was conducted per ATS guidelines. She use a walking aid due to back pain. The initial saturation was 96%, and initial heart rate was 69 beats per minute. The patient walked without stopping, completing 600 ft/182.8 m. The saturation at the end of testing was 95% and the heart rate was 70 beats per minute. The lowest saturation during the study was 93%. IMPRESSION: This is a normal study. The patient did not require supplemental oxygen with exertion. Distance walked is less than expected for age. Kelin Hassan MD
== END 2023-11-06 12:41 | disposition home or self-care (01) ==
LOC: ANHPFT 12:41
PROVIDERS: PCP Physician Assistant; Visit Provider Internal Medicine Critical Care Medicine
DX: J44.9 Chronic obstructive pulmonary disease, unspecified (principal); R94.2 Abnormal results of pulmonary function studies
CPT/HCPCS: 94060; 94618; 94726; 94729

== ENCOUNTER 2023-12-03 12:22 | Outpatient (CLI) | payer MEDICARE, MEDICAID, SELFPAY ==
--- NOTE | ~2023-12-03 | US_ITS ---
EXAMINATION: US venous doppler UE RT DATE: 12/03/2023 13:11 INDICATION: Right arm swelling TECHNIQUE: Gautam scale images with and without compression and Doppler images of the right upper extre mity veins were obtained. COMPARISON: None. FINDINGS: The right internal jugular vein, subclavian vein, axillary vein, brachial veins, basilic vein, cephal ic vein, radial vein, and ulnar vein are patent. IMPRESSION: 1. Patent right upper extremity veins. No evidence of deep venous thrombosis. Reviewed, dictated and finalized at location B.
== END 2023-12-03 12:23 | disposition home or self-care (01) ==
PROVIDERS: Visit Provider Internal Medicine Hematology & Oncology
DX: M79.89 Other specified soft tissue disorders (principal)
CPT/HCPCS: 93971

== ENCOUNTER 2023-12-05 10:22 | Outpatient (CLI) | payer MEDICARE, MEDICAID, SELFPAY ==
--- NOTE | ~2023-12-05 | NM_ITS ---
EXAMINATION: NM bone scan whole body DATE: 12/05/2023 14:12 INDICATION: Malignant neoplasm of upper lobe of left lung. TECHNIQUE: 25.9 mCi Tc-99m HDP was administered intravenously. Delayed whole-body scintigrams were o btained. COMPARISON: PET/CT 10/08/2023 FINDINGS: There is joint-centered increased activity in the shoulders, feet, and hands, likely osteoa rthritis. IMPRESSION: 1. No evidence of metastatic disease. Reviewed, dictated and finalized at location A.
== END 2023-12-05 10:23 | disposition home or self-care (01) ==
LOC: ANHIMG 10:25
PROVIDERS: PCP Physician Assistant; Visit Provider Internal Medicine Hematology & Oncology
DX: C34.12 Malignant neoplasm of upper lobe, left bronchus or lung (principal)
CPT/HCPCS: 78306; A9503

== ENCOUNTER 2023-12-06 11:15 | Emergency (ER) | payer MEDICARE, MEDICAID, SELFPAY ==
[2023-12-06] VITALS (7 sets, daily range): BP systolic 107–125; BP diastolic 75–99; PULSE 86–90; RESP 16–22; TEMP 36.3–37.4; O2SAT 74–99
--- NOTE | ~2023-12-06 | XR_ITS ---
EXAMINATION: XR elbow RT min 3V DATE: 12/06/2023 13:48 INDICATION: Right elbow pain and swelling TECHNIQUE: Anteroposterior, two oblique and lateral views of the right elbow were obtained. COMPARISON: None. FINDINGS: Alignment is normal. Chronic nonunited small fracture fragment at the tip of the coronoid process. No acute fracture. Mild osteoarthritis at the right elbow. No joint effusion. There is prominent soft t issue swelling with increased density posterior to the olecranon and proximal ulna. IMPRESSION: 1. Prominent relatively dense soft tissue swelling posterior to the olecranon and proximal ulna. This could be due to hematoma in the setting of trauma or olecranon bursitis. 2. Small chronic nonunited fracture with corticated margins at the tip the coronoid process. No elbow joint effusion or acute osseous abnormality. Reviewed, dictated and finalized at location A. IMPRESSION: 1. Prominent relatively dense soft tissue swelling posterior to the olecranon a nd proximal ulna. This could be due to hematoma in the setting of trauma or ole cranon bursitis. 2. Small chronic nonunited fracture with corticated margins at the tip the yasir noid process. No elbow joint effusion or acute osseous abnormality.
--- NOTE | 2023-12-06 14:48 | ED.UPPEXIN ---
HPI - Extremity Injury (Upper) General Chief Complaint: Extremity Injury, Upper Stated Complaint: RIGHT ELBOW SWELLING Time Seen by Provider: 12/06/23 14:12 Source: patient Mode of arrival: ambulatory Limitations: no limitations History of Present Illness HPI narrative: [id number] patient presents with report of right elbow swelling for the past 1 week. Her primary care provider/RANDOLPH Estela Churchas out of the office so she saw a different RANDOLPH in the clinic who recommended that she come to the emergency department. she denies any repetitive movements. She notes that her symptoms appear worsening evening. She denies any falls or injury. Pain is 8/10 with use. She sees Dr. Watkins for her lung cancer and she notes that she recently had an ultrasound done his arm given that there was concern for blood clot but this was negative by her report. no fevers. Related Data Home Medications Medication Instructions Recorded Confirmed budesonide-formoterol HFA 160 2 puff inhalation .COMPLEX 09/08/19 12/06/23 mcg-4.5 mcg/actuation aerosol inhaler (Symbicort) losartan 100 mg tablet 100 mg PO DAILY 06/13/22 12/06/23 metoprolol tartrate 50 mg tablet 50 mg PO BID 06/13/22 12/06/23 nortriptyline 50 mg capsule 50 mg PO DAILY 06/13/22 12/06/23 semaglutide 0.25 mg or 0.5 mg (2 0.5 mg subcut WEEKLY 10/15/23 12/06/23 mg/3 mL) subcutaneous pen injector (Ozempic) Allergies Allergy/AdvReac Type Severity Reaction Status Date / Time sertraline Allergy Intermediate Itching Verified 12/06/23 12:54 Sulfa (Sulfonamide Allergy Unknown Unknown Verified 12/06/23 12:54 Antibiotics) [facility] Past Medical History Medical History Anxiety disorder, unspecified Asthma with COPD (chronic obstructive pulmonary disease) COPD (chronic obstructive pulmonary disease) Essential hypertension Major depressive disorder, recurrent, unspecified Nodule of left lung RAISSA (obstructive sleep apnea) Right hand dominant Screening for hyperlipidemia Family History Family History Other Diabetes mellitus Hypertension Social History Social History Smoking packs per day: 1 Smoking cigarettes per day: 20.0 Years smoked: 35 Smoking pack-years: 35.00 Smoking status: Current every day smoker Tobacco type: cigarettes Additional smoking assessment comments: trying to stop Alcohol intake: current Spiritual care concerns: No Exam Narrative: GENERAL: Well-appearing, well-nourished, and in no acute distress. HEAD: Normocephalic, atraumatic. EYES: Non injected, non icteric ENT: Nares clear, no rhinorrhea or epistaxis. NECK: Supple. CHEST: Speaking in full sentences. No respiratory distress. HEART: Regular rate and rhythm. . ABDOMEN: Soft, nondistended. EXTREMITIES: Normal range of motion. Large fluid-filled structure at the right elbow. there is some overlying redness with slight warmth. no rosario induration. SKIN: Warm, dry, no rash. NEURO: No focal deficits. Alert and oriented x3. PSYCH: Normal mood and affect. Course Vital Signs Vital signs: Vital Signs Temperature 97.8 F 12/06/23 11:50 Pulse Rate 86 12/06/23 11:50 Respiratory Rate 16 12/06/23 11:50 Blood Pressure 107/75 12/06/23 11:50 Pulse Oximetry 96 12/06/23 11:50 Oxygen Delivery Room Air 12/06/23 11:50 Temperature 97.4 F L 12/06/23 18:45 Pulse Rate 89 12/06/23 18:45 Respiratory Rate 22 H 12/06/23 18:45 Blood Pressure 110/99 H 12/06/23 18:45 Pulse Oximetry 98 12/06/23 18:45 Oxygen Delivery Room Air 12/06/23 12:54 Procedures Joint Aspiration/Injection Joint Asp./Inject. 1: Joint Aspiration Date: 12/06/23 Side of body: right Joint Aspirated: elbow Ultrasound Guidance: Yes Skin Prep: other (alcohol ) Loca
[2023-12-06] MEDS: ACETAMINOPHEN 500 MG TABLET 1000 MG PO (15:13)
[2023-12-06 17:51] LABS: Source Synovial Fluid Synovial fluid
[2023-12-06 17:52] LABS: Appearance Synovial Fluid Hazy (Clear); Color Synovial Fluid Yellow (Colorless); Nucleated Cell Synovial Fluid 4113 /uL (0-200); RBC Synovial Fluid 13000 /uL (0-0)
[2023-12-06 17:53] LABS: Lymphocytes Synovial Fluid 13 %; Monocytes Synovial Fluid 10 %; Neutrophils Synovial Fluid 77 % (0-25)
[2023-12-06 18:04] LABS: Crystals Synovial Fluid None Seen (None Seen)
[2023-12-06] MEDS: DICLOXACILLIN SODIUM 250 MG CAPSULE 500 MG PO (18:34)
[2023-12-12 19:44] LABS: Glucose Synovial Fluid 51 mg/dL
[2023-12-12 19:52] LABS: Total Protein Synovial Fluid 4.8 g/dL (1.0-3.0)
== END 2023-12-06 18:47 | disposition home or self-care (01) ==
PROVIDERS: Emergency Provider Student in an Organized Health Care Education/Training Program; PCP Physician Assistant
DX: M70.21 Olecranon bursitis, right elbow (principal); S52.041A Displaced fracture of coronoid process of right ulna, initial encounter for closed fracture; C34.90 Malignant neoplasm of unspecified part of unspecified bronchus or lung; J44.89 Other specified chronic obstructive pulmonary disease; I10 Essential (primary) hypertension; G47.33 Obstructive sleep apnea (adult) (pediatric); F41.8 Other specified anxiety disorders; F17.210 Nicotine dependence, cigarettes, uncomplicated
CPT/HCPCS: 20600; 73080; 82945; 84157; 87070; 87205; 89051; 89060; 99283; A9270

== ENCOUNTER 2023-12-16 13:16 | Inpatient (IN) | payer MEDICARE, MEDICAID, SELFPAY ==
[2023-12-16] VITALS (8 sets, daily range): BP systolic 99–128; BP diastolic 73–90; PULSE 111–127; RESP 18–24; TEMP 36.4–36.6; O2SAT 92–99
--- NOTE | ~2023-12-16 | CT_ITS ---
EXAMINATION: CT elbow RT wo con DATE: 12/18/2023 11:58 INDICATION: Possible erosions of olecranon TECHNIQUE: High resolution computed tomography (CT) of the right elbow was performed without intraven ous contrast. Additional sagittal and coronal reconstructions were performed. Automated exposure cont rol and iterative reconstruction technique were employed. The dose-length product was 353.47 mGy-cm. COMPARISON: 12/16/2023 FINDINGS: Bone alignment is normal. No fracture. Mild osteoarthritis at the right elbow with mild nonuniform karolina int space narrowing and tiny marginal osteophytes. Small elbow joint effusion with mild increased flu id in the anterior but not the posterior recess. There is no evident inflammatory stranding in the ad jacent fat pads to elevate suspicion for septic arthritis. There is a large amount of fluid consisten t with bursitis in the olecranon bursa which measures 7.3 x 3.7 x 1.6 cm in orthogonal dimensions. Th ere is inflammatory stranding in the surrounding subcutaneous fat. Mild erosive changes at the olecra non footplate of the distal triceps tendon. Subtle tiny calcific densities in the distal triceps tend on which could be enthesopathic related to crystal deposition disease. IMPRESSION: 1. Olecranon bursitis with erosions at the olecranon footplate of the distal triceps tendon. This cou ld be either septic bursitis with associated osteomyelitis or aseptic the chest in the setting of a c rystalline deposition diseases including gout. 2. Mild osteoarthritis of the right elbow with nonspecific small right elbow joint effusion but witho ut adjacent inflammatory stranding to elevate suspicion for inflammatory arthritis. Reviewed, dictated and finalized at location B. IMPRESSION: 1. Olecranon bursitis with erosions at the olecranon footplate of the distal tr iceps tendon. This could be either septic bursitis with associated osteomyeliti s or aseptic the chest in the setting of a crystalline deposition diseases incl uding gout. 2. Mild osteoarthritis of the right elbow with nonspecific small right elbow karolina int effusion but without adjacent inflammatory stranding to elevate suspicion f or inflammatory arthritis.
--- NOTE | ~2023-12-16 | XR_ITS ---
EXAMINATION: XR chest 1V portable DATE: 12/20/2023 08:15 INDICATION: Shortness of breath. TECHNIQUE: A single frontal view of the chest was obtained. COMPARISON: Chest single view at 4:12 AM, chest CT 12/16/2023 FINDINGS: There is a nodule in left upper lobe. No pleural effusion or pneumothorax. The heart size i s normal. IMPRESSION: 1. Nodule in left lung upper lobe, consistent with primary bronchogenic carcinoma. Reviewed, dictated and finalized at location A. IMPRESSION: 1. Nodule in left lung upper lobe, consistent with primary bronchogenic carcino ma.
--- NOTE | ~2023-12-16 | XR_ITS ---
EXAMINATION: XR chest 2V Exam Date/Time: 12/16/2023 15:50 CDT HISTORY: increased shortness of breath, COPD Comparison: 10/21/2023; CT chest 09/14/2023. RESULT: Lines, tubes, and devices: None. Lungs and pleura: Emphysematous change. Persistent nodularity/scarring in left upper lung. Cardiomediastinal silhouette: Stable. Other: No acute osseous or upper abdominal finding. IMPRESSION: No acute cardiopulmonary process. Reviewed, dictated and finalized at location K.
--- NOTE | ~2023-12-16 | XR_ITS ---
XR elbow RT min 3V Ordering provider: Debbie Baca History: . R elbow abscess . Comparison: None. FINDINGS: BONES: No acute fracture or dislocation. JOINT SPACES: Normal. SOFT TISSUES: Soft tissue swelling posteriorly suggestive of an abscess or hematoma. No definite join t effusion. IMPRESSION: No acute osseous abnormality of the right elbow. Soft tissue swelling seen posteriorly suggestive of an abscess or hematoma. Reviewed, dictated and finalized at location A.
--- NOTE | ~2023-12-16 | XR_ITS ---
Portable chest x-ray Comparison: 12/16/2023 Clinical History: Hypoxia Findings: Focal haziness left upper lobe is present, with additional focal haziness at the bilateral lung bases. Cardiomediastinal silhouette is stable. Bones and soft tissues are unremarkable. Impression: Mild haziness lung bases bilaterally and left upper lobe. Correlate for multifocal infection, or poss ibly somewhat atypical pulmonary edema pattern. Reviewed, dictated and finalized at [facility]. Impression: Mild haziness lung bases bilaterally and left upper lobe. Correlate for multifo marie infection, or possibly somewhat atypical pulmonary edema pattern.
--- NOTE | ~2023-12-16 | CT_ITS ---
EXAMINATION: CTA chest PE protocol DATE: 12/16/2023 19:50 INDICATION: pulmonary embolism TECHNIQUE: Computed tomography angiography (CTA) of the chest was performed with 100 mL Omnipaque-350 intravenous contrast timed to evaluate the pulmonary arteries. Coronal maximum intensity projection 3D-reconstructions were created by the technologist. The dose-length product (DLP) was 879.17 mGy-cm. Automated exposure control and iterative reconstruction technique were employed. COMPARISON: CT lung biopsy 10/21/2023; CT chest 09/14/2023. FINDINGS: Lung parenchyma and airways: Emphysematous change. Nodular opacities in the left upper lung. Subsegme ntal lingular and right middle lobe atelectasis. Pleura: Unremarkable. Thoracic inlet, axillae and chest wall: Unremarkable. Thoracic aorta: No significant dilation. No dissection. Moderate arch calcification. Mediastinum: Dilated central pulmonary arteries.. Heart and pericardium: Normal. Coronary artery calcifications: Mild. Upper abdomen: No significant finding. Bones: No acute osseous finding. Old nonunited left rib fracture. Pulmonary arteries: Study quality: Motion artifact in the lower lobes, overall diagnostic. No pulmona ry emboli detected. IMPRESSION: No CT evidence of acute pulmonary embolus. No acute process detected in the chest. Nodular left upper lobe opacities, previously biopsied. Reviewed, dictated and finalized at location K.
--- NOTE | ~2023-12-16 | CT_ITS ---
EXAMINATION: CTA chest PE protocol DATE: 12/20/2023 11:10 INDICATION: Hypoxia. TECHNIQUE: Computed tomography angiography (CTA) of the chest was performed with 100 mL Omnipaque-350 intravenous contrast timed to evaluate the pulmonary arteries. Coronal maximum intensity projection 3D-reconstructions were created by the technologist. Automated exposure control and iterative reconst ruction technique were employed. The dose-length product was 976.99 mGy-cm. COMPARISON: Chest CT 12/16/2023 FINDINGS: There is moderate emphysema. There is a 3.2 x 1.0 cm mass in left lung upper lobe. There is mild atelectasis bilaterally. No pleural effusion. The heart size is normal. No pericardial effusion . There are gallstones in the gallbladder, which is normal in size. There is no pulmonary embolus. Th ere is severe thoracic spondylosis. There is mild chronic anterior wedging of multiple vertebral bodi es. There are old left rib fractures. IMPRESSION: 1. No pulmonary embolus. 2. Left lung upper lobe mass, consistent with primary bronchogenic carcinoma. 3. Moderate emphysema. Reviewed, dictated and finalized at location A.
--- NOTE | ~2023-12-16 | US_ITS ---
EXAMINATION: US elbow asp inj w image RT DATE: 12/17/2023 13:06 INDICATION: Right olecranon bursitis. TECHNIQUE: The procedure including the risks, benefits, and alternatives was discussed with the patie nt. Risks discussed included bleeding and infection. The patient understood the risks and agreed to p roceed. The skin overlying the right olecranon bursa was prepped and draped in usual sterile fashion. Anesthetic was administered with 1% lidocaine subcutaneously. An 18 gauge spine needle was then us ed to aspirate fluid from the olecranon bursa under continuous sonographic guidance. The entry site w as cleaned and dressed. There were no immediate complications. FINDINGS: Ultrasound images demonstrate the needle in severe right olecranon bursitis. IMPRESSION: 1. Ultrasound-guided needle aspiration of right olecranon bursa yielding 50 mL red fluid. Reviewed, dictated and finalized at location A.
--- NOTE | 2023-12-16 15:43 | ED.SOB ---
HPI - SOB/Dyspnea General Chief Complaint: Shortness of Breath/Dyspnea <Debbie Baca APRN - Last Filed: 12/16/23 15:52> Stated Complaint: SOB <Debbieskyler Baca APRN - Last Filed: 12/16/23 15:52> Time Seen by Provider: 12/16/23 15:43 <Debbie Baca APRN - Last Filed: 12/16/23 15:52> Focused HPI: Pt is a 63-year-old female who presents to the ER with complaints of a swollen elbow and increased shortness of breath. She reports she has a history of COPD, stage 1 lung cancer, and R elbow bursitis. Pt reports she's supposed to start radiation treatment tomorrow but she has had worsening shortness of breath today. She went to her PCP today and they advised her to come to the ER for evaluation. Pt denies chest pain and shortness of breath at this time. GENERAL: Ill-appearing, well-nourished, and in no acute distress. HEAD: Normocephalic, atraumatic. CHEST: I/E wheezing in all four quadrants upon auscultation. ?No respiratory distress. HEART: Tachycardic, regular rhythm.? NEURO: ?Alert and oriented x3. Patient screened in triage and initial orders placed.? ?Additional care and disposition to be based upon?diagnostic testing and treatment. <Debbie Baca APRN - Last Filed: 12/16/23 15:52> Source: patient <Debbie Lorenzo Baca APRN - Last Filed: 12/16/23 15:52> Mode of arrival: EMS <Debbie Baca APRN - Last Filed: 12/16/23 15:52> Limitations: clinical condition (shortness of breath) <Debbie Baca APRN - Last Filed: 12/16/23 15:52> History of Present Illness HPI Narrative: Agree with HPI. Observe <Dewayne Quintero MD - Last Filed: 12/16/23 22:55> Related Data Home Medications: Home Medications Medication Instructions Recorded Confirmed budesonide-formoterol HFA 160 2 puff inhalation .COMPLEX 09/08/19 12/06/23 mcg-4.5 mcg/actuation aerosol inhaler (Symbicort) losartan 100 mg tablet 100 mg PO DAILY 06/13/22 12/06/23 metoprolol tartrate 50 mg tablet 50 mg PO BID 06/13/22 12/06/23 nortriptyline 50 mg capsule 50 mg PO DAILY 06/13/22 12/06/23 semaglutide 0.25 mg or 0.5 mg (2 0.5 mg subcut WEEKLY 10/15/23 12/06/23 mg/3 mL) subcutaneous pen injector (Ozempic) <Debbie Baca APRN - Last Filed: 12/16/23 15:52> Allergies/Adverse Reactions: Allergies Allergy/AdvReac Type Severity Reaction Status Date / Time sertraline Allergy Intermediate Itching Verified 12/06/23 12:54 Sulfa (Sulfonamide Allergy Unknown Unknown Verified 12/06/23 12:54 Antibiotics) <Debbie Baca APRN - Last Filed: 12/16/23 15:52> Review of Systems Review of Systems: All systems reviewed & are unremarkable except as noted in HPI and below <Dewayne Quintero MD - Last Filed: 12/16/23 22:55> Constitutional: Constitutional: Reports no additional constitutional complaints <Dewayne Quintero MD - Last Filed: 12/16/23 22:55> Cardiovascular: Cardiovascular: Reports no additional cardiovascular complaints <Dewayne Quintero MD - Last Filed: 12/16/23 22:55> Respiratory: Respiratory: Reports cough, Reports dyspnea and Reports wheezing <Dewayne Quintero MD - Last Filed: 12/16/23 22:55> Gastrointestinal: Gastrointestinal: Reports no additional gastrointestinal complaints <Dewayne Quintero MD - Last Filed: 12/16/23 22:55> Genitourinary: Genitourinary: Reports no additional female genitourinary complaints <Dewayne Quintero MD - Last Filed: 12/16/23 22:55> Musculoskeletal: Musculoskeletal: Denies back pain, Denies arthralgias and Reports joint swelling <Dewayne Quintero MD - Last Filed: 12/16/23 22:55> [facility] Past Medical History Medical History: Medical History Anxiety disorder, unspecified Asthma with COPD (chronic obstructive pulmonary disease) COPD (chronic obstructive pulmonary disease) Essential hypertension Major depressive disorder, recurrent, unspecified Nodule of
--- NOTE | 2023-12-16 15:44 | ECG_ITS ---
Test Date: 2023-12-16 15:48:25 Measurements Intervals [place] Rate: 115 P: 39 ME: 184 QRS: 7 QRSD: 74 T: 43 QT: 315 QTc: 437 Interpretive Statements SINUS TACHYCARDIA DELAYED PRECORDIAL R/S TRANSITION LOW QRS VOLTAGE IN PRECORDIAL LEADS MINIMAL Q WAVES- HIGH LATERAL LEADS CONSIDER INFERIOR INFARCT, AGE INDETERMINATE BASELINE ARTIFACT- I, III, AVR, AVL, AVF, V1, V4 ABNORMAL ECG No previous ECG available for comparison Electronically Signed On 12-16-2023 19:54:27 CDT by Huan Watt D.O.
[2023-12-16] MEDS: IPRATROPIUM 0.5 MG/ALBUTEROL SULFATE 2.5 MG AMPUL.NEB 3 ML 6 ML INHALATION (16:03)
[2023-12-16 16:29] LABS: Basophils Percent Auto 0.4 % (0.2-1.2); Eosinophils Absolute Auto 0.4 K/mm3 (0-0.3); Eosinophils Percent Auto 4.3 % (0-4.4); Hematocrit 48.1 % (37.0-47.0); Hemoglobin 16.1 g/dL (12.0-15.0); Immature Granulocyte Absolute 0.03 K/mm3 (0.00-0.031); Immature Granulocyte Percent A 0.3 % (0-0.5); Lymphocytes Absolute Auto 1.91 K/mm3 (0.9-3.2); Lymphocytes Percent Auto 19.9 % (18.3-44.2); Mean Corpuscular HGB Conc 33.5 g/dl (32-36); Mean Corpuscular Hemoglobin 30.1 pg (26-34); Mean Corpuscular Volume 90.1 fl (80-100); Mean Platelet Volume 8.5 fl (7.4-10.4); Monocytes Absolute Auto 0.5 K/mm3 (0.1-0.6); Monocytes Percent Auto 5.1 % (2.6-8.5); Neutrophils Absolute Auto 6.7 K/mm3 (1.3-6.7); Platelet Count Result 409 k/mm3 (150-375); Red Blood Count 5.34 M/mm3 (4.2-5.4); Red Cell Distribution Width 14.5 % (11.5-14.5); White Blood Count 9.6 K/mm3 (4.5-10.0)
[2023-12-16 16:40] LABS: Prothrombin Time 13.2 Seconds (11.1-14.7)
[2023-12-16 16:41] LABS: Lactic Acid Reflex 1.2 mmol/L (0.7-2.0); Partial Thromboplastin Time 32.8 Seconds (22.3-36.8)
[2023-12-16 16:43] LABS: Alanine Aminotransferase 19 U/L (6-35); Albumin Level 4.2 g/dL (3.5-5.1); Alkaline Phosphatase 176 U/L (38-126); Anion Gap 10 mmol/L (4-12); Aspartate Amino Transferase 26 U/L (14-36); Bilirubin,Total 0.4 mg/dL (0.2-1.3); Blood Urea Nitrogen 15 mg/dL (7-17); Calcium 9.8 mg/dL (8.4-10.2); Carbon Dioxide 30 mmol/L (22-30); Chloride 90 mmol/L (98-107); Estimated CRCL calculation 78 ml/min; Estimated Glomerular Filt Rate > 60; Glucose 96 mg/dL (65-110); Potassium 3.9 mmol/L (3.4-5.0); Sodium 130 mmol/L (137-145)
[2023-12-16 17:01] LABS: NT Pro B Type Natriuretic Pept 571 pg/mL (19.9-100); Troponin I < 0.012 ng/mL (0.000-0.034)
[2023-12-16 17:02] LABS: D Dimer 1.87 ug/mL (<0.48)
[2023-12-16] MEDS: IPRATROPIUM BR 0.02% INH SOLN 0.5 MG/2.5 ML VIAL 1.5 MG INHALATION (21:11)
[2023-12-16] MEDS: ALBUTEROL SULFATE NEB 2.5 MG/3 ML INH 15 MG INHALATION (21:11)
[2023-12-16] MEDS: methylPREDNISolone SOD SUCC 125 MG VIAL IV PUSH (21:12)
[2023-12-16 23:14] LABS: Influenza A QL RT-PCR Negative (Negative); Influenza B QL RT-PCR Negative (Negative); RSV RNA, RT-PCR Negative (Negative); SARS-CoV-2 RNA PCR Negative (Negative)
--- NOTE | 2023-12-16 23:14 | PC.NURSE ---
Pt given box lunch at this time.
[2023-12-17] VITALS (12 sets, daily range): BP systolic 97–142; BP diastolic 55–102; PULSE 92–125; RESP 14–22; TEMP 36.4–36.7; O2SAT 91–98; BMI 44.9
[2023-12-17] MEDS: IPRATROPIUM 0.5 MG/ALBUTEROL SULFATE 2.5 MG AMPUL.NEB 3 ML INHALATION ×4 (01:32→22:53)
--- NOTE | 2023-12-17 03:00 | PM.IMHP ---
H&P: HPI History of Present Illness Date/Time: 12/17/23 03:00 Chief Complaint: Shortness of breath Narrative: Ms. 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 She has been about her usual when she developed shortness of breath on the day prior to admission on 12/17/23. she has a chronic cough and that has not changed. ER vitals include a blood pressure 121/87 coming down to 99/73. Heart rate 109 coming now to 92, temperature 97.6?, respiratory rate between 14 and 20. The patient was resting comfortably. However she was noted to desaturate into the mid 80s upon movement. This was after nebulizer treatments. WBC 9.6, hemoglobin 16.1, platelets 409. INR 1.0, D-dimer 1.87, sodium 130, serum creatinine 0.7, BUN 15, a quad viral screen negative. CTA chest performed without evidence of acute pulmonary embolus or any other acute process. identified her persistent nodular left upper lobe opacities. Patient was given Solu-Medrol 125 mg IV x1, and hour long nebulizer. Review of Systems Review of Systems: All systems reviewed & are unremarkable except as noted in HPI and below ( Subjective) PMFSH Past Medical History Medical History Anxiety disorder, unspecified Asthma with COPD (chronic obstructive pulmonary disease) COPD (chronic obstructive pulmonary disease) Essential hypertension Major depressive disorder, recurrent, unspecified Nodule of left lung RAISSA (obstructive sleep apnea) Right hand dominant Screening for hyperlipidemia Family History Family History Other Diabetes mellitus Hypertension Social History Social History Smoking packs per day: 1 Smoking cigarettes per day: 20.0 Years smoked: 35 Smoking pack-years: 35.00 Smoking status: Current every day smoker Tobacco type: cigarettes Additional smoking assessment comments: trying to stop Alcohol intake: current Spiritual care concerns: No Meds Home Medications and Allergies Home Medications Medication Instructions Recorded Confirmed Type albuterol sulfate 90 mcg/actuation 2 inhalation inhalation Q4H #8.5 02/17/19 12/06/23 Rx aerosol inhaler (ProAir HFA) grams budesonide-formoterol HFA 160 2 puff inhalation BID 09/08/19 12/17/23 History mcg-4.5 mcg/actuation aerosol inhaler (Symbicort) losartan 100 mg tablet 100 mg PO DAILY 06/13/22 12/17/23 History metoprolol tartrate 50 mg tablet 50 mg PO BID 06/13/22 12/17/23 History nortriptyline 50 mg capsule 50 mg PO DAILY 06/13/22 12/17/23 History albuterol sulfate 90 mcg/actuation 4 puff inhalation QID PRN 09/14/23 12/17/23 Rx aerosol inhaler shortness of breath or wheezing #8.5 grams semaglutide 0.25 mg or 0.5 mg (2 1 mg subcut WEEKLY 10/15/23 12/17/23 History mg/3 mL) subcutaneous pen injector (Ozempic) tiotropium bromide 2.5 2 puff inhalation DAILY 1 month #4 11/15/23 12/17/23 Rx mcg/actuation mist for inhalation grams (Spiriva Respimat) acetaminophen 500 mg capsule 1,000 mg PO Q6H PRN pain #20 caps 12/06/23 12/17/23 Rx dicloxacillin 500 mg capsule 500 mg PO Q6H 10 days #40 caps 12/06/23 12/17/23 Rx ibuprofen 600 mg tablet 600 mg PO TID PRN pain #20 tabs 12/06/23 12/17/23 Rx omeprazole magnesium 20 mg 20 mg PO DAILY heart burn 12/17/23 12/17/23 History capsule,delayed release (Acid Irrigation Pump Installer (omeprazole)) Allergies Allergy/AdvReac Type Severity Reaction Status Date / Time sertraline Allergy Intermediate Itching Verified 12/06/23 12:54 Sulfa (Sulfonamide Allergy Unknown Unknown Verified 12/06/23 12:54 Antibiotics)
[2023-12-17] MEDS: methylPREDNISolone SOD SUCC 125 MG VIAL 60 MG IV PUSH (05:05)
--- NOTE | 2023-12-17 09:41 | PM.CNOR ---
Assessment and Plan Assessment and plan (1) Olecranon bursitis of right elbow: Code(s): M70.21 - Olecranon bursitis, right elbow Status: Acute Assessment and Plan: Patient was seen in ER 12/06/23 and had asp of right olecronon bursa then and cultures showed no growth. Case discussed with Dr Alexis. Now with recurrence of swelling and diffuse ecchymosis. Pt placed on dicloxacillin. Size of 1/2 a tennis ball. I will ask radiology to aspirate again and again sent for cultures. History of Present Illness HPI Consult date: 12/18/23 Chief complaint: COPD EXACERBATION [facility] Past Medical History Medical History Anxiety disorder, unspecified Asthma with COPD (chronic obstructive pulmonary disease) COPD (chronic obstructive pulmonary disease) Essential hypertension Major depressive disorder, recurrent, unspecified Nodule of left lung RAISSA (obstructive sleep apnea) Right hand dominant Screening for hyperlipidemia Family History Family History Other Diabetes mellitus Hypertension Social History Social History Smoking packs per day: 1 Smoking cigarettes per day: 20.0 Years smoked: 35 Smoking pack-years: 35.00 Smoking status: Current every day smoker Additional smoking assessment comments: trying to stop-says hasnt smoked in a week Alcohol intake: former Substance use: never Substance use type: does not use Do You Feel Safe in your Home?: Yes Lack of Transportation: No Lack of Food: Never True Current Housing: I Have Housing Concerned About Future Housing: No Difficulty Paying Gas/Electric Bills: No Difficulty Paying for Meds: No Currently Unemployed: No Education: Associate Degree Difficulty w/ Childcare or Family Care: No Spiritual care concerns: No Meds Home Medications and Allergies Home Medications Medication Instructions Recorded Confirmed Type albuterol sulfate 90 mcg/actuation 2 inhalation inhalation Q4H #8.5 02/17/19 12/06/23 Rx aerosol inhaler (ProAir HFA) grams budesonide-formoterol HFA 160 2 puff inhalation BID 09/08/19 12/17/23 History mcg-4.5 mcg/actuation aerosol inhaler (Symbicort) losartan 100 mg tablet 100 mg PO DAILY 06/13/22 12/17/23 History metoprolol tartrate 50 mg tablet 50 mg PO BID 06/13/22 12/17/23 History nortriptyline 50 mg capsule 50 mg PO DAILY 06/13/22 12/17/23 History albuterol sulfate 90 mcg/actuation 4 puff inhalation QID PRN 09/14/23 12/17/23 Rx aerosol inhaler shortness of breath or wheezing #8.5 grams semaglutide 0.25 mg or 0.5 mg (2 1 mg subcut WEEKLY 10/15/23 12/17/23 History mg/3 mL) subcutaneous pen injector (Ozempic) tiotropium bromide 2.5 2 puff inhalation DAILY 1 month #4 11/15/23 12/17/23 Rx mcg/actuation mist for inhalation grams (Spiriva Respimat) acetaminophen 500 mg capsule 1,000 mg PO Q6H PRN pain #20 caps 12/06/23 12/17/23 Rx dicloxacillin 500 mg capsule 500 mg PO Q6H 10 days #40 caps 12/06/23 12/17/23 Rx ibuprofen 600 mg tablet 600 mg PO TID PRN pain #20 tabs 12/06/23 12/17/23 Rx omeprazole magnesium 20 mg 20 mg PO DAILY heart burn 12/17/23 12/17/23 History capsule,delayed release (Acid Solar Installation Technician (omeprazole)) Allergies Allergy/AdvReac Type Severity Reaction Status Date / Time sertraline Allergy Intermediate Itching Verified 12/06/23 12:54 Sulfa (Sulfonamide Allergy Unknown Unknown Verified 12/06/23 12:54 Antibiotics) Vital Signs Vital Signs - 24 hr 12/16/23 13:29 12/16/23 16:16 12/16/23 16:23 Temperature 36.6 C 36.4 C Pulse Rate 120 H 127 H Respiratory Rate 18 24 H Blood Pressure 121/87 128/90 Pulse Oximetry 97 98 Oxygen Delivery Room Air Room Air Fraction of Inspired Oxygen 12/16/23 17:49 12/16/23 20:56 12/16/23 21:15 Temperature Pulse Rate 123 H 119 H 111 H Respiratory
[2023-12-17] MEDS: PANTOPRAZOLE 40 MG TABLET PO (09:53)
[2023-12-17] MEDS: AZITHROMYCIN 250 MG TABLET 500 MG PO (09:53)
[2023-12-17] MEDS: guaiFENesin 12 HR 600 MG TABCR PO ×2 (09:53→21:15)
[2023-12-17] MEDS: NORTRIPTYLINE HCL 25 MG CAPSULE 50 MG PO (09:53)
[2023-12-17] MEDS: SODIUM CHLORIDE 0.9% IV 500 ML IV CONT (09:54)
[2023-12-17] MEDS: NICOTINE (*PBKC) 21 MG PATCH 1 PATCH TRANSDERM (10:01)
[2023-12-17] MEDS: ACETAMINOPHEN 325 MG TABLET 650 MG PO (10:56)
[2023-12-17 14:01] LABS: Crystals Synovial Fluid None Seen (None Seen)
--- NOTE | 2023-12-17 14:51 | PM.EVENT ---
Event Note Event Note Event Note: Patient had been seen and assessed by previous provider same day. I followed up with patient agreed with COPD exacerbation treatment however added 40 mg p.o. prednisone and p.o. azithromycin. Patient's right elbow with erythema and moderate swelling recently aspirated on 12/06/23 which culture showing no growth but had been started on Dicloxacillin PO. Orthopedics had been consulted for further evaluation recommendations. Was later then called by radiologist to reread report stating it appeared there was some erosion and events of osteomyelitis. MRI with and without contrast was ordered and elbow was reaspirated post aspiration and culture vancomycin and cefepime initiated for broad-spectrum coverage. Patient does have a history of small lung carcinoma was initially supposed to see her oncologist for starting treatment today this will likely need to be put on hold. There is some concern since initial aspiration did not chronic culture patient may need further evaluation by Infectious Disease is unknown infectious process causing osteomyelitis per Orthopedics, pending results may need transferred to tertiary hospital. Patient currently on room air and 98% audible wheezing and lung sounds diminished on auscultation. Patient did begin to vomit during assessment started IV fluids to keep patient hydrated hyponatremia noted on labs and zofran administered. Patient is a previous smoker reports she stop smoking 1 week ago mucolytics added as well
[2023-12-17] MEDS: cefTRIAXone 2 GM/NS 100 ML 2 GM/100 ML BAG IVPB (15:01)
[2023-12-17] MEDS: VANCOMYCIN 1,250 MG/NS 250 ML 1,250 MG/250 ML BAG 166.67 MG IVPB ×2 (15:59→18:19)
[2023-12-17] MEDS: MELATONIN 3 MG TABLET PO (21:15)
[2023-12-17] MEDS: SODIUM CHLORIDE 0.9% IV 1,000 ML 75 ML IV CONT (21:15)
[2023-12-18] VITALS (13 sets, daily range): BP systolic 154–180; BP diastolic 90–100; PULSE 72–119; RESP 18–24; TEMP 36.5–37.3; O2SAT 91–100
[2023-12-18] MEDS: IPRATROPIUM 0.5 MG/ALBUTEROL SULFATE 2.5 MG AMPUL.NEB 3 ML INHALATION ×4 (03:18→20:44)
[2023-12-18] MEDS: PANTOPRAZOLE 40 MG TABLET PO (06:03)
--- NOTE | 2023-12-18 07:11 | PM.IMPN ---
Progress Note: A&P Assessment and Plan (1) COPD exacerbation: Code(s): J44.1 - Chronic obstructive pulmonary disease with (acute) exacerbation Status: Acute Assessment and Plan: Patient presenting with shortness a breath with her chronic cough. white blood cell count was normal, she is afebrile, lactic acid 1.2. prednisone 40 mg DuoNebs scheduled q.6 Mucinex b.i.d., azithromycin for 5 days resume home Symbicort b.i.d. (2) Smoker: Code(s): F17.200 - Nicotine dependence, unspecified, uncomplicated Status: Acute Assessment and Plan: patient states she quit smoking 1 week ago continue to dianetic counselor on negative affects of smoking and positive affects of quitting nicotine patch ordered (3) Olecranon bursitis of right elbow: Code(s): M70.21 - Olecranon bursitis, right elbow Status: Acute Assessment and Plan: on 12/05 patient was seen in the emergency room and joint was aspirated. cultures showed no growth. The patient was started on dicloxacillin and scheduled for outpatient follow-up. No with diffuse swelling and ecchymosis. Orthopedics was consulted and recs are appreciated joint aspiration performed again 12/17/23. Wound culture growing gram positive bacilli on anaerobic culture CT of the elbow shows an olecranon bursitis with erosions at the olecranon footplate of the distal triceps tendon representing septic bursitis with osteomyelitis vs septic arthritis. These changes appear to be acute since imaging on 12/05. Orthopedics is recommending transfer for ID and ortho consult for surgery patient was started on Rocephin and vancomycin Plan DVT prophylaxis: Lovenox Glycemic control: not applicable Code Status: DNR Disposition: 63-year-old female with a past medical history of COPD, recently diagnosed with NSCLC adenocarcinoma who presented to the emergency room with shortness a breath. She is being treated for COPD exacerbation. She was also found to have recurrent swelling and ecchymosis to her right elbow after previous aspiration on 12/05. Orthopedics is following. Repeat aspiration completed on 12/16. Awaiting cultures. Medication reconciliation obtained via the following: Nurse completed on admission The file time of this note does not necessarily represent the time the patient was seen. Subjective Date/time seen: 12/18/23 07:11 Interval history: Ms. 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 She has been about her usual when she developed shortness of breath on the day prior to admission on 12/17/23. 12/17: She is tearful this morning. She is tired and says she has not been sleeping well and her anxiety has been making her breathing worse. Her right elbow is still swollen, tender, and has ecchymosis present. She is not requiring oxygen at this time but does have dyspnea at rest with expiratory wheezing. Review of Systems Review of Systems: All systems reviewed & are unremarkable except as noted in HPI and below Exam Narrative: General: chronically ill appearing, tearful, appears stated age. HEENT: normocephalic, atraumatic. Mucous membranes moist. EOMI, PERRLA, bilateral sclera anicteric, no conjunctival injection. Neck supple without JVD, lymphadenopathy, or bruit. Respiratory: clear to auscultation bilaterally. No rales/rhonic/+ wheezes. Cardiovascular: Regular rate and rhythm, normal S1-S2 upon auscultation. No murmurs, rubs, or clicks. PMI is nondisplaced, capillary refill less than 3 second. Abdomen: Soft, round, no pulsatile masses, nondistended and nontende
--- NOTE | 2023-12-18 08:10 | PM.CNOR ---
Assessment and Plan Assessment and plan (1) Olecranon bursitis of right elbow: Code(s): M70.21 - Olecranon bursitis, right elbow Status: Acute Assessment and Plan: Patient is a 63-year-old female who I am asked to see for olecranon bursitis of the right elbow. She developed this and late October. She was advised to go to the emergency room by her primary care physician on December 05. They aspirated her right olecranon bursa at that time and pulled off clear fluid that eventually became bloody. Fluid was sent for analysis. Negative crystals. Cell count with differential is somewhat irrelevant as it is not a synovial fluid but cultures were no growth final. She was not taking antibiotics until after the olecranon bursa was aspirated and the emergency room gave her dicloxacillin at that time. She was then admitted for COPD exacerbation night before last and I was asked to see her again. Repeat x-rays of her right elbow were obtained and the radiologist felt there were erosions on the olecranon process posteriorly that were not present on the x-ray from December 05 worrisome for osteomyelitis. I reviewed the x-rays and these findings I would consider is very subtle or perhaps equivocal to my eye. I spoke to Dr. Garcia personally about this case. I have also spoken with the hospitalist. We therefore ordered an MRI scan to evaluate for osteomyelitis of the olecranon and she went down the scanner yesterday and could not tolerate. She could not tolerate lying prone or supine because of her breathing difficulties. Ulcer her obesity makes being in the small to very anxiety provoking. Her BMI is 44.9. Also we had the radiologist aspirate the bursa under ultrasound guidance yesterday and 50 cc of red fluid was withdrawn suggesting a hemorrhagic bursitis. Patient was started on high-dose antibiotics [facility] for hers COPD exacerbation. Patient also has lung cancer and is undergoing radiation treatments for that currently at another institution. Physical examination: On exam there is mild erythema diffusely over the olecranon bursa of the right elbow. No pain with range of motion. Mild tenderness. The size is approximately the size of a half of a lemon that is partially deflated. There is no break in the skin. No epithelial desquamation and no significant edema which 1 might see with an acute infection. Assessment and plan: Patient certainly has an olecranon bursitis right elbow. I asked her if she leans on the point of her right elbow frequently and she admits that ?she has bad about that . This occurs when she is rolling in bed and puts the weight on the point of her elbow and she likes to play video games on hand-held device and will rest the right elbow for long periods of time on the table while she does this. I have spoken to her about the fact that this can cause additional bleeding in an inflamed olecranon bursa and must be avoided at all costs if this is to improve. The question is whether she has a septic bursitis possibly with osteomyelitis of the olecranon at the right elbow. It is extremely probable that she did not have a septic olecranon bursitis when she had her elbow aspirated on December 05 and she was put on antibiotics dicloxacillin for 10 days after that. Patient has allergy to sulfa antibiotics. It is possible that the aspiration could seed the bursa which is a known risk of aspiration and perhaps she is infected with a bacteria resistant to dicloxacillin such as MRSA. The fluid aspirated yesterday is being cultured and the cultures are intubated. G stain showed no bacteria. I have recommended obtaining a CT scan of the elbow to evaluate for possible erosive changes, since we cannot do an MRI scan as she did not tolerate it. I think it is more probable that the patient does not have an infection and that instead, she has a hemorrhagic olecranon bursitis caused by her frequently putting her body weigh
[2023-12-18] MEDS: VANCOMYCIN 1,500 MG/NS 500 ML 1,500 MG/500 ML BAG 250 MG IVPB (08:18)
[2023-12-18] MEDS: NORTRIPTYLINE HCL 25 MG CAPSULE 50 MG PO (08:19)
[2023-12-18] MEDS: METOPROLOL TARTRATE 50 MG TAB PO ×2 (08:19→20:19)
[2023-12-18] MEDS: SODIUM CHLORIDE 0.9% IV 1,000 ML 75 ML IV CONT (08:19)
[2023-12-18] MEDS: predniSONE 20 MG TABLET 40 MG PO (08:20)
[2023-12-18] MEDS: AZITHROMYCIN 250 MG TABLET PO (08:20)
[2023-12-18] MEDS: guaiFENesin 12 HR 600 MG TABCR PO ×2 (08:20→20:18)
[2023-12-18] MEDS: ENOXAPARIN 40 MG/0.4 ML SYRINGE SUB-Q (08:20)
[2023-12-18] MEDS: NICOTINE (*PBKC) 21 MG PATCH 1 PATCH TRANSDERM (08:21)
[2023-12-18] MEDS: cefTRIAXone 2 GM/NS 100 ML 2 GM/100 ML BAG IVPB (08:21)
--- NOTE | 2023-12-18 08:35 | P.CDI_ITS ---
CDI Query Clarification Request Patient with a BMI of 44.9 please provide a diagnosis to accompany this finding: * Overweight * Obesity * Morbid Obesity * Other/Unknown <Mima Wilkes RN - Last Filed: 12/18/23 08:35> Clarified Diagnosis Clarified Diagnosis: overweight <Cassia Sanchez APRN - Last Filed: 12/18/23 13:01>
[2023-12-18 08:44] LABS: Alanine Aminotransferase 18 U/L (6-35); Albumin Level 4.1 g/dL (3.5-5.1); Alkaline Phosphatase 143 U/L (38-126); Anion Gap 9 mmol/L (4-12); Aspartate Amino Transferase 29 U/L (14-36); Bilirubin,Total 0.5 mg/dL (0.2-1.3); Blood Urea Nitrogen 12 mg/dL (7-17); CRP 0.9 mg/dL (<1.0); Calcium 9.3 mg/dL (8.4-10.2); Carbon Dioxide 27 mmol/L (22-30); Chloride 93 mmol/L (98-107); Estimated CRCL calculation 90 ml/min; Estimated Glomerular Filt Rate > 60; Glucose 90 mg/dL (65-110); Potassium 3.8 mmol/L (3.4-5.0); Sodium 129 mmol/L (137-145)
[2023-12-18 08:45] LABS: Basophils Percent Auto 0.3 % (0.2-1.2); Eosinophils Absolute Auto 0.3 K/mm3 (0-0.3); Hematocrit 44.2 % (37.0-47.0); Hemoglobin 14.7 g/dL (12.0-15.0); Immature Granulocyte Absolute 0.02 K/mm3 (0.00-0.031); Immature Granulocyte Percent A 0.2 % (0-0.5); Lymphocytes Absolute Auto 1.95 K/mm3 (0.9-3.2); Lymphocytes Percent Auto 21.3 % (18.3-44.2); Mean Corpuscular HGB Conc 33.3 g/dl (32-36); Mean Corpuscular Hemoglobin 30.1 pg (26-34); Mean Corpuscular Volume 90.4 fl (80-100); Monocytes Absolute Auto 0.5 K/mm3 (0.1-0.6); Monocytes Percent Auto 5.8 % (2.6-8.5); Neutrophils Absolute Auto 6.4 K/mm3 (1.3-6.7); Neutrophils Percent Auto 69.4 % (45.5-73.1); Platelet Count Result 361 k/mm3 (150-375); Red Blood Count 4.89 M/mm3 (4.2-5.4); Red Cell Distribution Width 14.6 % (11.5-14.5); White Blood Count 9.2 K/mm3 (4.5-10.0)
[2023-12-18] MEDS: FLUTICASONE/SALMETEROL 115-21 MCG INHALER 1 PUFF 2 PUFF INHALATION ×2 (08:45→20:44)
[2023-12-18 09:52] LABS: Erythrocyte Sedimentation Rate 14 mm/hr (0-20)
[2023-12-18] MEDS: LORazepam (*CRX) 0.5 MG TABLET PO (12:19)
[2023-12-18] MEDS: traZODone HCL 50 MG TABLET PO (20:18)
[2023-12-18] MEDS: MELATONIN 3 MG TABLET PO (20:18)
[2023-12-18 20:48] LABS: Vancomycin Trough 18.5 ug/mL (10.0-20.0)
[2023-12-18] MEDS: LOSARTAN POTASSIUM 50 MG TABLET PO (23:37)
[2023-12-19] VITALS (12 sets, daily range): BP systolic 96–165; BP diastolic 58–74; PULSE 91–113; RESP 16–20; TEMP 36.4–36.8; O2SAT 90–100
--- NOTE | 2023-12-19 01:13 | PC.NURSE ---
unable to administer 2200 dose of Vanc on 12/17 due to loss of IV access. Multiple attempts were made including with the US machine. When IV access was established, the line almost immediately infiltrated when the Vanc was started
[2023-12-19] MEDS: IPRATROPIUM 0.5 MG/ALBUTEROL SULFATE 2.5 MG AMPUL.NEB 3 ML INHALATION ×4 (02:12→20:04)
[2023-12-19] MEDS: PANTOPRAZOLE 40 MG TABLET PO (06:44)
[2023-12-19] MEDS: FLUTICASONE/SALMETEROL 115-21 MCG INHALER 1 PUFF 2 PUFF INHALATION ×2 (07:01→20:05)
--- NOTE | 2023-12-19 07:10 | PM.IMPN ---
Progress Note: A&P Assessment and Plan (1) Olecranon bursitis of right elbow: Code(s): M70.21 - Olecranon bursitis, right elbow Status: Acute Assessment and Plan: on 12/05 patient was seen in the emergency room and joint was aspirated. cultures showed no growth. The patient was started on dicloxacillin and scheduled for outpatient follow-up. No with diffuse swelling and ecchymosis. Orthopedics was consulted and recs are appreciated joint aspiration performed again 12/17/23. Culture with no growth to date. CT of the elbow shows an olecranon bursitis with erosions at the olecranon footplate of the distal triceps tendon representing septic bursitis with osteomyelitis vs septic arthritis. These changes appear to be acute since imaging on 12/05. ESR and CRP were normal Orthopedics is following and recommendations are appreciated. We will re-evaluate her cultures tomorrow at noon and if no growth then we can plan for discharge. patient was started on Rocephin and vancomycin ID pharmacist has been consulted, rec's appreciated (2) COPD exacerbation: Code(s): J44.1 - Chronic obstructive pulmonary disease with (acute) exacerbation Status: Acute Assessment and Plan: Patient presenting with shortness a breath with her chronic cough. white blood cell count was normal, she is afebrile, lactic acid 1.2. prednisone 40 mg DuoNebs scheduled q.6 Mucinex b.i.d., azithromycin for 5 days resume home Symbicort b.i.d. (3) Smoker: Code(s): F17.200 - Nicotine dependence, unspecified, uncomplicated Status: Acute Assessment and Plan: patient states she quit smoking 1 week ago continue to counselor education professor on negative affects of smoking and positive affects of quitting nicotine patch ordered (4) Hypertension: Code(s): I10 - Essential (primary) hypertension Status: Acute Assessment and Plan: Blood pressures were soft on admission and home anti-hypertensives were held. Blood pressures elevated overnight into the 180's systolic. restart home losartan prn hydralazine as needed for SBP greater than 170 mm hg Blood pressure is better today, in fact on the lower side. She is also less anxious and I think this was playing a role in her hypertension. She received losartan 50 mg this morning prior to dayshift arrival. Plan DVT prophylaxis: Lovenox Glycemic control: not applicable Code Status: DNR Disposition: 63-year-old female with a past medical history of COPD, recently diagnosed with NSCLC adenocarcinoma who presented to the emergency room with shortness a breath. She is being treated for COPD exacerbation. She was also found to have recurrent swelling and ecchymosis to her right elbow after previous aspiration on 12/05. Orthopedics is following. Repeat aspiration completed on 12/16. Awaiting further culture results. Medication reconciliation obtained via the following: Nurse completed on admission The file time of this note does not necessarily represent the time the patient was seen. Subjective Date/time seen: 12/19/23 07:10 Interval history: Ms. 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 She has been about her usual when she developed shortness of breath on the day prior to admission on 12/17/23. 12/17: She is tearful this morning. She is tired and says she has not been sleeping well and her anxiety has been making her breathing worse. Her right elbow is still swollen, tender, and has ecchymosis present. She is not requiring oxygen at this time but does have dyspnea at rest with
--- NOTE | 2023-12-19 07:22 | PM.PNORT ---
Progress Note: A&P Assessment and Plan (1) Olecranon bursitis of right elbow: Code(s): M70.21 - Olecranon bursitis, right elbow Status: Acute Assessment and Plan: After further review of culture results, the rare Gram pos bacillus is on the GRAM STAIN and not cultured. [facility] will report on cultures later today. The cultures are no growth today. Clinically she states it feels much better. She has a persistent fluid collection which is very soft and there is no significant tenderness today. The skin is without edema or break in the skin. Her sedimentation rate was normal and her C-reactive protein was normal yesterday. For this reason I was surprised to see the positive Gram stain report which has been since corrected to a negative Gram stain report. My clinical impression is that this is not infected and that the erosions seen on the CT scan at the triceps to may be a form of enthesopathy. Again the cultures from December 05 with the patient not on antibiotics were negative. However, that does not rule out the possibility that the aspiration of the bursa at that time may have iatrogenically introduced infection which can happen. I have stressed with her at length that the most critical strategy for her is going to be completely avoiding leaning on the right elbow. If she does that the body should resorb the bursal hematoma over time and fully this will resolve. I have spoken with the hospitalist today and I think it would be best for her to be discharged on an oral antibiotic and I would recommend doxycycline which covers most MRSA and I would have her take this for a 7 day course. Subjective Subjective Date/Time Seen: 12/19/23 07:22 Objective Data Vital Signs Vital Signs: Vital Signs - 24 hr 12/18/23 08:19 12/18/23 07:42 12/18/23 07:42 Temperature Pulse Rate 72 118 H Respiratory Rate 20 Blood Pressure Pulse Oximetry 94 Oxygen Delivery Room Air Fraction of Inspired Oxygen 21 12/18/23 07:51 12/18/23 08:00 12/18/23 13:09 Temperature Pulse Rate 115 H 97 Respiratory Rate 20 20 Blood Pressure Pulse Oximetry Oxygen Delivery Room Air Fraction of Inspired Oxygen 12/18/23 13:17 12/18/23 14:00 12/18/23 20:26 Temperature 36.5 C 37.3 C Pulse Rate 98 104 H 102 H Respiratory Rate 20 24 H 18 Blood Pressure 176/99 H 180/100 H Pulse Oximetry 91 100 Oxygen Delivery Fraction of Inspired Oxygen 12/18/23 20:44 12/18/23 20:44 12/18/23 20:53 Temperature Pulse Rate 109 H 110 H Respiratory Rate 20 20 Blood Pressure Pulse Oximetry 98 Oxygen Delivery Room Air Fraction of Inspired Oxygen 12/18/23 22:51 12/18/23 20:00 12/19/23 02:13 Temperature Pulse Rate 95 Respiratory Rate 20 Blood Pressure 180/90 H Pulse Oximetry Oxygen Delivery Room Air Fraction of Inspired Oxygen 12/19/23 02:21 12/19/23 05:54 Temperature 36.6 C Pulse Rate 94 97 Respiratory Rate 20 18 Blood Pressure 165/74 H Pulse Oximetry 94 Oxygen Delivery Fraction of Inspired Oxygen Intake/Output Intake/Output: Intake & Output 12/16/23 12/17/23 12/18/23 12/19/23 23:59 23:59 23:59 23:59 Intake Total 1566 2500 450 Output Total 53 Balance 1513 2500 450 Meds/Results Medications: Active Medications Generic Name Dose Route Start Last Admin Trade Name Freq PRN Reason Stop Dose Admin Acetaminophen 650 mg 12/16/23 22:33 12/17/23 10:56 Acetaminophen 325 Mg Tablet PO 650 mg Q4H PRN Administration Mild Pain (1-3) or Fever Hydrocodone Bitart/Acetaminophen 1 tab 12/16/23 22:33 Hydrocodone/Acetaminophen (*Crx) 5-325 Mg Tablet PO Q4H PRN Pain Rated 4-6 Albuterol/Ipratropium 3 ml 12/17/23 02:00 12/19/23 07:02 Ipratropium 0.5 Mg/Albuterol Sulfate 2.5 Mg Ampul.Neb 3 Ml INHALATION 3 ml Q6HRT ARGELIA Administration Azithromycin 250 mg 12/18/23 09:00 12/18/23 08:20 Azithromycin 250 Mg Tablet PO
[2023-12-19 08:08] LABS: Alanine Aminotransferase 16 U/L (6-35); Albumin Level 3.7 g/dL (3.5-5.1); Alkaline Phosphatase 111 U/L (38-126); Anion Gap 7 mmol/L (4-12); Aspartate Amino Transferase 25 U/L (14-36); Bilirubin,Total 0.3 mg/dL (0.2-1.3); Blood Urea Nitrogen 12 mg/dL (7-17); Calcium 9.3 mg/dL (8.4-10.2); Carbon Dioxide 31 mmol/L (22-30); Chloride 91 mmol/L (98-107); Estimated CRCL calculation 78 ml/min; Estimated Glomerular Filt Rate > 60; Glucose 91 mg/dL (65-110); Potassium 3.8 mmol/L (3.4-5.0); Sodium 129 mmol/L (137-145)
[2023-12-19 08:24] LABS: Basophils Absolute Auto 0.1 K/mm3 (0.0-0.1); Basophils Percent Auto 0.6 % (0.2-1.2); Eosinophils Absolute Auto 0.3 K/mm3 (0-0.3); Eosinophils Percent Auto 2.5 % (0-4.4); Hemoglobin 14.1 g/dL (12.0-15.0); Immature Granulocyte Absolute 0.04 K/mm3 (0.00-0.031); Immature Granulocyte Percent A 0.4 % (0-0.5); Lymphocytes Absolute Auto 2.59 K/mm3 (0.9-3.2); Lymphocytes Percent Auto 26.3 % (18.3-44.2); Mean Corpuscular Hemoglobin 29.7 pg (26-34); Mean Corpuscular Volume 92.8 fl (80-100); Mean Platelet Volume 8.8 fl (7.4-10.4); Monocytes Absolute Auto 0.8 K/mm3 (0.1-0.6); Monocytes Percent Auto 8.3 % (2.6-8.5); Neutrophils Absolute Auto 6.1 K/mm3 (1.3-6.7); Neutrophils Percent Auto 61.9 % (45.5-73.1); Platelet Count Result 354 k/mm3 (150-375); Red Blood Count 4.74 M/mm3 (4.2-5.4); Red Cell Distribution Width 14.6 % (11.5-14.5); White Blood Count 9.8 K/mm3 (4.5-10.0)
--- NOTE | 2023-12-19 08:51 | P.PNINF_ITS ---
Pharmacy ID Consult - Stewardship Interventions Type of Interventions: Other Pharmacy ID Note: Subjective Pharmacy was consulted by Jacky Sanchez regarding infectious diseases for Sherri Ramirez. Sherri Ramirez is a 63 year old F with concerns regarding potential septic bursitis vs osteomyelitis. Background The patient is currently receiving Vancomycin Day 3, Ceftriaxone Day 3, and Azithromycin Day 3 of 5. The patient's PMH includes HTN, COPD, and NSCLC zak nocarcinoma. Additionally, spoke with Madeleine Joshi at [facility]. Upon review of the specimen, they are updating the gram stain results to say no organisms seen from gram positive bacilli. Blood and aspirate cultures pending but both with no organisms seen and in-house gram stain also showing no organisms. Microbiology 12/17/23 12:38 Aspirate Anaerobic Culture - Preliminary 12/17/23 12:38 Aspirate Aerobic Culture - Preliminary 12/16/23 16:20 Blood Blood Culture - Preliminary 12/16/23 16:20 Blood Blood Culture - Preliminary 12/17/23 12:38 Elbow Right Gram Stain - Final 12/06/23 16:09 Bursa Wound Culture - Final Laboratory Tests 12/18/23 12/18/23 12/19/23 08:05 08:05 07:46 WBC 9.2 9.8 ESR 14 C-Reactive Protein 0.9 Assessment/Recommendation/Discussion Spoke briefly with consulting provider and current orthopedic provider for patient (Dr. Calloway). Patient is currently receiving azithromycin for the management of COPD exacerbation - therapy is slated to complete over the weekend - appears appropriate as patient is on room air. Patient is receiving ceftriaxone and vancomycin for the management of this septic bursitis vs osteomyelitis - empirically this should cover most likely pathogens given no organisms seen on any culture form 12/05 or this visit. Should patient need an outpatient course, could consider using a hybrid PO and IV treatment modality with IV ceftriaxone 2g daily for broad-spectrum coverage a long with PO MRSA coverage with oral doxycycline 100 mg BID for 3-6 weeks since last drainage depending on the indication (bursitis vs osteomyelitis) and would likely benefit from outpatient follow up. Other PO MRSA options excluded because sulfamethoxazole - trimethoprim (avoid due to patient allergy), linezolid (avoid due to contraindication with nortriptyline and potentially trazodone, as well as adverse effect profile with long-term use), and clindamycin (less preferred due to increased frequency of dosing for prolonged course and per [facility] antibiogram, covers significantly fewer MRSA isolates empirically) Will continue to follow. Thank you for the interesting consult. Richy Mendoza, PharmD Infectious Disease/Antimicrobial Stewardship Pharmacist 12/19/23; 0851 WBC 9.8 K/mm3 (4.5-10.0) 12/19/23 07:46 Creatinine 0.70 mg/dL (0.7-1.0) 12/19/23 07:46 Estim Creat Clear Calc 78 ml/min 12/19/23 07:46
--- NOTE | 2023-12-19 09:45 | PC.NURSE ---
RN spoke with isaac Antony in regards to patient's blood pressure (see vitals). Isaac Antony wants RN to hold losartan and metoprolol at this time due to decreased blood pressure (see vitals).
[2023-12-19] MEDS: predniSONE 20 MG TABLET 40 MG PO (09:50)
[2023-12-19] MEDS: AZITHROMYCIN 250 MG TABLET PO (09:50)
[2023-12-19] MEDS: guaiFENesin 12 HR 600 MG TABCR PO ×2 (09:50→21:36)
[2023-12-19] MEDS: NORTRIPTYLINE HCL 25 MG CAPSULE 50 MG PO (09:51)
[2023-12-19] MEDS: ENOXAPARIN 40 MG/0.4 ML SYRINGE SUB-Q (10:02)
[2023-12-19] MEDS: NICOTINE (*PBKC) 21 MG PATCH 1 PATCH TRANSDERM (10:02)
[2023-12-19] MEDS: cefTRIAXone 2 GM/NS 100 ML 2 GM/100 ML BAG IVPB (12:58)
[2023-12-19] MEDS: VANCOMYCIN 1,500 MG/NS 500 ML 1,500 MG/500 ML BAG 250 MG IVPB (13:48)
--- NOTE | 2023-12-19 13:52 | PC.NURSE ---
RN spoke with Pharmacist in regards to patient's IV antibiotics being hung late. Patient did not have IV access. Pharmacist is to retime IV vancomycin and trough.
[2023-12-19] MEDS: METOPROLOL TARTRATE 50 MG TAB PO (21:36)
[2023-12-19] MEDS: MELATONIN 3 MG TABLET PO (21:36)
[2023-12-19] MEDS: traZODone HCL 50 MG TABLET PO (21:36)
[2023-12-20] VITALS (17 sets, daily range): BP systolic 155; BP diastolic 89; PULSE 83–105; RESP 16–18; TEMP 36.3; O2SAT 85–95
[2023-12-20] MEDS: VANCOMYCIN 1,500 MG/NS 500 ML 1,500 MG/500 ML BAG 250 MG IVPB (01:48)
[2023-12-20] MEDS: IPRATROPIUM 0.5 MG/ALBUTEROL SULFATE 2.5 MG AMPUL.NEB 3 ML INHALATION (02:26)
[2023-12-20] MEDS: PANTOPRAZOLE 40 MG TABLET PO (05:44)
[2023-12-20 06:40] LABS: Basophils Absolute Auto 0.1 K/mm3 (0.0-0.1); Basophils Percent Auto 0.6 % (0.2-1.2); Eosinophils Absolute Auto 0.4 K/mm3 (0-0.3); Eosinophils Percent Auto 3.8 % (0-4.4); Hematocrit 43.1 % (37.0-47.0); Hemoglobin 14.5 g/dL (12.0-15.0); Immature Granulocyte Absolute 0.07 K/mm3 (0.00-0.031); Immature Granulocyte Percent A 0.7 % (0-0.5); Lymphocytes Absolute Auto 2.24 K/mm3 (0.9-3.2); Lymphocytes Percent Auto 22.9 % (18.3-44.2); Mean Corpuscular HGB Conc 33.6 g/dl (32-36); Mean Corpuscular Hemoglobin 30.3 pg (26-34); Mean Platelet Volume 8.9 fl (7.4-10.4); Monocytes Absolute Auto 0.8 K/mm3 (0.1-0.6); Monocytes Percent Auto 8.3 % (2.6-8.5); Neutrophils Absolute Auto 6.3 K/mm3 (1.3-6.7); Neutrophils Percent Auto 63.7 % (45.5-73.1); Platelet Count Result 366 k/mm3 (150-375); Red Blood Count 4.79 M/mm3 (4.2-5.4); Red Cell Distribution Width 14.6 % (11.5-14.5); White Blood Count 9.8 K/mm3 (4.5-10.0)
[2023-12-20 06:46] LABS: Alanine Aminotransferase 17 U/L (6-35); Albumin Level 3.8 g/dL (3.5-5.1); Alkaline Phosphatase 109 U/L (38-126); Anion Gap 7 mmol/L (4-12); Aspartate Amino Transferase 23 U/L (14-36); Bilirubin,Total 0.3 mg/dL (0.2-1.3); Blood Urea Nitrogen 11 mg/dL (7-17); Calcium 9.5 mg/dL (8.4-10.2); Carbon Dioxide 32 mmol/L (22-30); Chloride 92 mmol/L (98-107); Estimated CRCL calculation 78 ml/min; Estimated Glomerular Filt Rate > 60; Glucose 86 mg/dL (65-110); Potassium 3.4 mmol/L (3.4-5.0); Sodium 131 mmol/L (137-145)
--- NOTE | 2023-12-20 07:41 | PM.CNOR ---
Assessment and Plan Assessment and plan (1) Olecranon bursitis of right elbow: Code(s): M70.21 - Olecranon bursitis, right elbow Status: Acute Assessment and Plan: Patient feels well this morning. Her olecranon bursa of the right elbow is unchanged. There is no significant tenderness. This larger diameter and has some fluid in it. The skin looks normal except for minimal pink coloration. No skin edema to suggest cellulitis. We are waiting [facility] examination of the culture plates today and there is still no growth I would feel comfortable with discharge on doxycycline for 1 week since the bursa has been manipulated now twice in her is hematoma present which increases the risk of iatrogenic infection due to the aspiration. Clinically does not appear infected. History of Present Illness HPI Consult date: 12/20/23 Chief complaint: COPD [facility]AC[facility]BATION [facility] Past Medical History Medical History (Updated 12/20/23 @ 07:10 by Cassia Sanchez APRN) Anxiety disorder, unspecified Asthma with COPD (chronic obstructive pulmonary disease) COPD (chronic obstructive pulmonary disease) Essential hypertension Hypertension Major depressive disorder, recurrent, unspecified Nodule of left lung RAISSA (obstructive sleep apnea) Right hand dominant Screening for hyperlipidemia Family History Family History Other Diabetes mellitus Hypertension Social History Social History Smoking packs per day: 1 Smoking cigarettes per day: 20.0 Years smoked: 35 Smoking pack-years: 35.00 Smoking status: Current every day smoker Additional smoking assessment comments: trying to stop-says hasnt smoked in a week Alcohol intake: former Substance use: never Substance use type: does not use Do You Feel Safe in your Home?: Yes Lack of Transportation: No Lack of Food: Never True Current Housing: I Have Housing Concerned About Future Housing: No Difficulty Paying Gas/Electric Bills: No Difficulty Paying for Meds: No Currently Unemployed: No Education: Associate Degree Difficulty w/ Childcare or Family Care: No Spiritual care concerns: No Meds Home Medications and Allergies Home Medications Medication Instructions Recorded Confirmed Type albuterol sulfate 90 mcg/actuation 2 inhalation inhalation Q4H #8.5 02/17/19 12/18/23 Rx aerosol inhaler (ProAir HFA) grams budesonide-formoterol HFA 160 2 puff inhalation BID 09/08/19 12/17/23 History mcg-4.5 mcg/actuation aerosol inhaler (Symbicort) losartan 100 mg tablet 100 mg PO DAILY 06/13/22 12/17/23 History metoprolol tartrate 50 mg tablet 50 mg PO BID 06/13/22 12/17/23 History nortriptyline 50 mg capsule 50 mg PO DAILY 06/13/22 12/17/23 History albuterol sulfate 90 mcg/actuation 4 puff inhalation QID PRN 09/14/23 12/17/23 Rx aerosol inhaler shortness of breath or wheezing #8.5 grams semaglutide 0.25 mg or 0.5 mg (2 1 mg subcut WEEKLY 10/15/23 12/17/23 History mg/3 mL) subcutaneous pen injector (Ozempic) tiotropium bromide 2.5 2 puff inhalation DAILY 1 month #4 11/15/23 12/17/23 Rx mcg/actuation mist for inhalation grams (Spiriva Respimat) acetaminophen 500 mg capsule 1,000 mg PO Q6H PRN pain #20 caps 12/06/23 12/17/23 Rx dicloxacillin 500 mg capsule 500 mg PO Q6H 10 days #40 caps 12/06/23 12/17/23 Rx ibuprofen 600 mg tablet 600 mg PO TID PRN pain #20 tabs 12/06/23 12/17/23 Rx omeprazole magnesium 20 mg 20 mg PO DAILY heart burn 12/17/23 12/17/23 History capsule,delayed release (Acid Brim Ironer Hand (omeprazole)) alprazolam 0.25 mg tablet (Xanax) 0.25 mg PO TID PRN anxiety #30 tabs 12/20/23 Rx Allergies Allergy/AdvReac Type Severity Reaction Status Date / Time sertraline Allergy Intermediate Itching Verified 12/06/23 12:54 Sulfa (Sulfonamide Allergy Unknown Unknown Verified 12/06/23 12:54 Antibiotics) Vital Si
--- NOTE | 2023-12-20 07:44 | PM.PNORT ---
Progress Note: A&P Assessment and Plan (1) Olecranon bursitis of right elbow: Code(s): M70.21 - Olecranon bursitis, right elbow Status: Acute Plan Patient feels well this morning. Her olecranon bursa of the right elbow is unchanged. There is no significant tenderness. This larger diameter and has some fluid in it. The skin looks normal except for minimal pink coloration. No skin edema to suggest cellulitis. We are waiting [facility] examination of the culture plates today and there is still no growth I would feel comfortable with discharge on doxycycline for 1 week since the bursa has been manipulated now twice in her is hematoma present which increases the risk of iatrogenic infection due to the aspiration. Clinically does not appear infected. Subjective Subjective Date/Time Seen: 12/20/23 07:44 Objective Data Vital Signs Vital Signs: Vital Signs - 24 hr 12/19/23 09:50 12/19/23 09:45 12/19/23 13:00 Temperature Pulse Rate 101 H Respiratory Rate 18 Blood Pressure 96/58 L Pulse Oximetry Oxygen Delivery Room Air Oxygen Flow Rate 12/19/23 13:10 12/19/23 14:00 12/19/23 20:07 Temperature 36.4 C Pulse Rate 100 91 Respiratory Rate 18 18 Blood Pressure 150/65 H Pulse Oximetry 100 90 Oxygen Delivery Room Air Oxygen Flow Rate 12/19/23 20:07 12/19/23 20:16 12/19/23 20:43 Temperature 36.8 C Pulse Rate 111 H 113 H 93 Respiratory Rate 18 18 16 Blood Pressure 160/70 H Pulse Oximetry 91 Oxygen Delivery Oxygen Flow Rate 12/19/23 20:00 12/20/23 02:35 12/20/23 02:27 Temperature Pulse Rate 88 Respiratory Rate 18 Blood Pressure Pulse Oximetry 85 L Oxygen Delivery Room Air Room Air Oxygen Flow Rate 12/20/23 02:37 12/20/23 02:58 12/20/23 04:20 Temperature Pulse Rate 92 Respiratory Rate 18 Blood Pressure Pulse Oximetry 95 93 Oxygen Delivery Nasal Cannula Nasal Cannula Oxygen Flow Rate 2 2 12/20/23 05:52 Temperature 36.3 C L Pulse Rate 105 H Respiratory Rate 16 Blood Pressure 155/89 H Pulse Oximetry 89 L Oxygen Delivery Oxygen Flow Rate Intake/Output Intake/Output: Intake & Output 12/17/23 12/18/23 12/19/23 12/20/23 23:59 23:59 23:59 23:59 Intake Total 1566 2600 2800 900 Output Total 53 Balance 1513 2600 2800 900 Meds/Results Medications: Active Medications Generic Name Dose Route Start Last Admin Trade Name Freq PRN Reason Stop Dose Admin Acetaminophen 650 mg 12/16/23 22:33 12/17/23 10:56 Acetaminophen 325 Mg Tablet PO 650 mg Q4H PRN Administration Mild Pain (1-3) or Fever Hydrocodone Bitart/Acetaminophen 1 tab 12/16/23 22:33 Hydrocodone/Acetaminophen (*Crx) 5-325 Mg Tablet PO Q4H PRN Pain Rated 4-6 Albuterol/Ipratropium 3 ml 12/17/23 02:00 12/20/23 02:26 Ipratropium 0.5 Mg/Albuterol Sulfate 2.5 Mg Ampul.Neb 3 Ml INHALATION 3 ml Q6HRT ARGELIA Administration Albuterol/Ipratropium 3 ml 12/20/23 03:15 Ipratropium 0.5 Mg/Albuterol Sulfate 2.5 Mg Ampul.Neb 3 Ml INHALATION Q6HRT PRN SOB, wheezing Amoxicillin/Clavulanate Potassium 1 tablet 12/20/23 09:00 Amoxicillin/Clavulanate K 875-125 Mg Tab PO Q12HR ARGELIA Azithromycin 250 mg 12/18/23 09:00 12/19/23 09:50 Azithromycin 250 Mg Tablet PO 12/21/23 09:01 250 mg DAILY ARGELIA Administration Enoxaparin Sodium 40 mg 12/18/23 09:00 12/19/23 10:02 Enoxaparin 40 Mg/0.4 Ml Syringe SUB-Q 40 mg DAILY ARGELIA Administration Guaifenesin 600 mg 12/17/23 09:00 12/19/23 21:36 Guaifenesin 12 Hr 600 Mg Tabcr PO 600 mg Q12HR ARGELIA Administration Hydralazine HCl 10 mg 12/19/23 07:19 Hydralazine Hcl 20 Mg/Ml Vial IV PUSH Q8H PRN Blood Pressure - High Losartan Potassium 100 mg 12/19/23 09:00 12/19/23 09:45 Losartan Potassium 100 Mg Tablet PO Not Given DAILY ARGELIA Melatonin 3 mg 12/17/23 21:00 12/19/23 21:36 Melatonin 3 Mg Tablet PO 3 mg
[2023-12-20 08:37] LABS: Alveolar/Arterial O2 Gradient 93.1 mmHg; Base Excess ABG 6.8 mEq/l (+/-2.0); Fractional Inspired Oxygen 28 %; HCO3 ABG 31.5 mEq/l (22.0-26.0); Oxygen Content ABG 18.2 %vol (16.0-22.0); Oxygen Saturation ABG 89.4 % (95.0-100.0); PCO2 ABG 44.9 mmHg (35.0-45.0); PO2 ABG 53.6 mmHg (80.0-100.0); PO2 FiO2 Ratio Arterial Blood 1.91 %; pH ABG 7.464 (7.350-7.450)
--- NOTE | 2023-12-20 08:39 | PCRCNOTE ---
ABG'S delayed on pt therapist in code
[2023-12-20 08:45] LABS: Device NASAL CANNULA; Oxyhemoglobin 86.3 % THb (90.0-100.0); Site Drawn RIGHT BRACHIAL
[2023-12-20] MEDS: NICOTINE (*PBKC) 21 MG PATCH 1 PATCH TRANSDERM (09:07)
[2023-12-20] MEDS: ENOXAPARIN 40 MG/0.4 ML SYRINGE SUB-Q (09:07)
[2023-12-20] MEDS: predniSONE 20 MG TABLET 40 MG PO (09:08)
[2023-12-20] MEDS: METOPROLOL TARTRATE 50 MG TAB PO (09:08)
[2023-12-20] MEDS: AZITHROMYCIN 250 MG TABLET PO (09:08)
[2023-12-20] MEDS: LOSARTAN POTASSIUM 100 MG TABLET PO (09:08)
[2023-12-20] MEDS: AMOXICILLIN/CLAVULANATE K 875-125 MG TAB 1 TABLET PO (09:08)
[2023-12-20] MEDS: guaiFENesin 12 HR 600 MG TABCR PO (09:08)
[2023-12-20] MEDS: NORTRIPTYLINE HCL 25 MG CAPSULE 50 MG PO (09:08)
--- NOTE | 2023-12-20 10:30 | PCRCNOTE ---
Window of time for administration has passed. See next scheduled administration.
--- NOTE | 2023-12-20 12:55 | HOMEO2EVAL ---
Evaluation was performed at [facility] Home Oxygen Evaluation RC: Home Oxygen (O2) Evaluation Start: 12/20/23 06:58 Freq: ONCE Status: Hold Protocol: RPE Activity Type Activity Date Activity User E-sign Co-sign Detail Recorded Client Recorded Date Recorded By Document 12/20/23 11:10 PKH [email or web address] 12/20/23 12:53 PKH Document 12/20/23 11:15 [email or web address] [email or web address] 12/20/23 12:53 PKH Document 12/20/23 11:20 [email or web address] [email or web address] 12/20/23 12:53 PKH Document 12/20/23 11:25 [email or web address] [email or web address] 12/20/23 12:53 PKH Document 12/20/23 11:40 [email or web address] [email or web address] 12/20/23 12:53 PKH Document 12/20/23 11:50 [email or web address] [email or web address] 12/20/23 12:53 PKH 12/20/23 12/20/23 12/20/23 11:10 11:15 11:20 Home O2 Evaluation [Oxygen] -Test Phase Resting Exercise Exercise -Oxygen Delivery Room Air Room Air Nasal Cannula -Oxygen Flow Rate (L/min) 1 [Pulse Oximetry] -Pulse Oximetry (90-100 %) 95 85 L 86 L [Pulse Rate] -Pulse Rate (60-100 beats/min) 87 87 83 [Charges] -Evaluation Charges O2 Evaluation by Pulmonary 12/20/23 12/20/23 12/20/23 11:25 11:40 11:50 Home O2 Evaluation [Oxygen] -Test Phase Exercise Exercise Resting -Oxygen Delivery Nasal Cannula Nasal Cannula Room Air -Oxygen Flow Rate (L/min) 2 2 [Pulse Oximetry] -Pulse Oximetry (90-100 %) 92 93 94 [Pulse Rate] -Pulse Rate (60-100 beats/min) 86 86 88 [Charges] -Evaluation Charges
--- NOTE | 2023-12-20 12:57 | PCRCNOTE ---
Home O2 eval complete. Patient requires room air at rest and 3lpm with activity. Patient set up with [facility] [phone]. Rn notified.
--- NOTE | 2023-12-24 17:23 | PM.DS ---
DS: Admitting Diagnosis Discharge Date 12/20/23 Admitting Diagnosis shortness of breath DS: Discharge Diagnosis Discharge Diagnosis (1) Olecranon bursitis of right elbow: Code(s): M70.21 - Olecranon bursitis, right elbow Status: Acute Assessment and Plan: on 12/05 patient was seen in the emergency room and joint was aspirated. cultures showed no growth. The patient was started on dicloxacillin and scheduled for outpatient follow-up. No with diffuse swelling and ecchymosis. Orthopedics was consulted and recs are appreciated joint aspiration performed again 12/17/23. Culture with no growth to date. CT of the elbow shows an olecranon bursitis with erosions at the olecranon footplate of the distal triceps tendon representing septic bursitis with osteomyelitis vs septic arthritis. These changes appear to be acute since imaging on 12/05. ESR and CRP were normal Orthopedics is following and recommendations are appreciated. We will re-evaluate her cultures tomorrow at noon and if no growth then we can plan for discharge. patient was started on Rocephin and vancomycin ID pharmacist has been consulted, rec's appreciated (2) COPD exacerbation: Code(s): J44.1 - Chronic obstructive pulmonary disease with (acute) exacerbation Status: Acute Assessment and Plan: Patient presenting with shortness a breath with her chronic cough. white blood cell count was normal, she is afebrile, lactic acid 1.2. prednisone 40 mg DuoNebs scheduled q.6 Mucinex b.i.d., azithromycin for 5 days resume home Symbicort b.i.d. (3) Smoker: Code(s): F17.200 - Nicotine dependence, unspecified, uncomplicated Status: Acute Assessment and Plan: patient states she quit smoking 1 week ago continue to counselor camp on negative affects of smoking and positive affects of quitting nicotine patch ordered (4) Hypertension: Code(s): I10 - Essential (primary) hypertension Status: Acute Assessment and Plan: Blood pressures were soft on admission and home anti-hypertensives were held. Blood pressures elevated overnight into the 180's systolic. restart home losartan prn hydralazine as needed for SBP greater than 170 mm hg Blood pressure is better today, in fact on the lower side. She is also less anxious and I think this was playing a role in her hypertension. She received losartan 50 mg this morning prior to dayshift arrival. Plan DVT prophylaxis: Lovenox Glycemic control: not applicable Code Status: DNR Disposition: 63-year-old female with a past medical history of COPD, recently diagnosed with NSCLC adenocarcinoma who presented to the emergency room with shortness a breath. She is being treated for COPD exacerbation. She was also found to have recurrent swelling and ecchymosis to her right elbow after previous aspiration on 12/05. Orthopedics is following. Repeat aspiration completed on 12/16. Awaiting further culture results. Medication reconciliation obtained via the following: Nurse completed on admission The file time of this note does not necessarily represent the time the patient was seen. DS: Summary Hospital Course Reason for hospitalization: COPD exacerbation Hospital Course: Patient presented with shortness of breath was found to be in a COPD exacerbation. She was started on prednisone, DuoNebs, and antibiotics. There was also concerned about olecranon bursitis and possible infection. Orthopedics was consulted. Initially the lab had reported that there was growth on her culture from fluid aspiration of her right elbow. We talked [place] follow-up conversation with lab showed that result was reported erroneously. There was no growth in her culture and no growth on Gram stain. This made more sense as h
== END 2023-12-20 13:35 | disposition home or self-care (01) | DRG 558 ==
LOC: ANHED 22:55 → ANH3MEDSUR 23:36
PROVIDERS: Nurse Practitioner Family; Orthopaedic Surgery; Registered Nurse; Admitting Provider General Practice; Emergency Provider Emergency Medicine; PCP Physician Assistant; Visit Provider Nurse Practitioner Acute Care
DX: M70.21 Olecranon bursitis, right elbow (principal); J44.1 Chronic obstructive pulmonary disease with (acute) exacerbation; C34.12 Malignant neoplasm of upper lobe, left bronchus or lung; E87.1 Hypo-osmolality and hyponatremia; Z68.41 Body mass index [BMI] 40.0-44.9, adult; I10 Essential (primary) hypertension; E66.3 Overweight; G47.33 Obstructive sleep apnea (adult) (pediatric); F41.9 Anxiety disorder, unspecified; F32.9 Major depressive disorder, single episode, unspecified; F17.210 Nicotine dependence, cigarettes, uncomplicated; Z20.822 Contact with and (suspected) exposure to COVID-19
CPT/HCPCS: 20606; 36415; 36600; 71045; 71046; 71275; 73080; 73200; 80053; 80202; 82805; 82810; 83605; 83880; 84484; 85025; 85380; 85610; 85652; 85730; 86140; 87040; 87070; 87075; 87205; 87637; 89060; 93005; 94618; 94640; 96374; 99285; A9270; J0696; J1650; J2405; J2919; J3370; J7030; J7040; J7512; Q9967

== ENCOUNTER 2024-03-30 08:27 | Outpatient (CLI) | payer MEDICARE, MEDICAID, SELFPAY ==
--- NOTE | ~2024-03-30 | CT_ITS ---
EXAMINATION:CT diagnostic chest w con DATE: 03/30/2024 08:51 INDICATION: Malignant neoplasm of upper lobe of left lung. TECHNIQUE: Computed tomography (CT) of the chest was performed with 75 mL Omnipaque 350 intravenous c ontrast. Automated exposure control and iterative reconstruction technique were employed. The dose-le ngth product (DLP) was 460.93 mGy-cm. COMPARISON: Chest CT 12/20/2023 FINDINGS: There is moderate emphysema. There is mild atelectasis bilaterally. There is a 3.1 x 1.0 cm nodule in left lung upper lobe that measured 3.3 x 1.0 cm on 12/20/2023. No pleural effusion. 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 There are gallstones in the gallbladder which is normal in size. There are old healed bila teral rib fractures. There is moderate thoracic spondylosis and severe cervical spondylosis. IMPRESSION: 1. Stable left upper lobe mass, consistent with primary bronchogenic carcinoma. Reviewed, dictated and finalized at location A. ERECTOR
[2024-03-30 08:48] LABS: Estimated Glomerular Filt Rate > 60
== END 2024-03-30 08:28 | disposition home or self-care (01) ==
PROVIDERS: PCP Physician Assistant; Visit Provider Internal Medicine Hematology & Oncology
DX: C34.12 Malignant neoplasm of upper lobe, left bronchus or lung (principal)
CPT/HCPCS: 71260; Q9967

== ENCOUNTER 2024-04-01 11:57 | Inpatient (IN) | payer MEDICARE, MEDICAID, SELFPAY ==
[2024-04-01] VITALS (16 sets, daily range): BP systolic 107–150; BP diastolic 57–85; PULSE 27–126; RESP 19–24; TEMP 36–36.8; O2SAT 91–100; BMI 41.1
--- NOTE | ~2024-04-01 | CT_ITS ---
EXAMINATION: CTA chest PE protocol DATE: 04/01/2024 16:31 INDICATION: pulmonary ebolism TECHNIQUE: Computed tomography angiography (CTA) of the chest was performed with 100 mL Omnipaque-350 intravenous contrast timed to evaluate the pulmonary arteries. Coronal maximum intensity projection 3D-reconstructions were created by the technologist. The dose-length product (DLP) was 726.82 mGy-cm. Automated exposure control and iterative reconstruction technique were employed. COMPARISON: 03/30/2024. FINDINGS: Moderate motion artifact. Lung parenchyma and airways: Moderate emphysematous change. Stable elongated multinodular mass in the left upper lobe. Patent central airways. Pleura: Unremarkable. Thoracic inlet, axillae and chest wall: Unremarkable. Thoracic aorta: No significant dilation. No dissection. Moderate arch calcification. 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 Mediastinum: Dilated central pulmonary arteries as can be seen with pulmonary artery hypertension. En larged subcarinal lymph node. Heart and pericardium: Normal. Coronary artery calcifications: Mild. Upper abdomen: No significant finding. Bones: No acute osseous finding. Pulmonary arteries: Study quality: Exam limited by moderate motion artifact. No segmental or central pulmonary emboli detected. Subsegmental pulmonary arteries not adequately evaluated. IMPRESSION: Evaluation of the subsegmental pulmonary arteries limited by motion artifact. No CT evidence of centr al or segmental acute pulmonary embolus. No acute process detected in the chest. Stable left upper lobe mass. Subcarinal lymphadenopathy. Reviewed, dictated and finalized at location K. GER SUPPLIER IMPRESSION: Evaluation of the subsegmental pulmonary arteries limited by motion artifact. N o CT evidence of central or segmental acute pulmonary embolus. No acute process detected in the chest. Stable left upper lobe mass. Subcarinal lymphadenopathy.
--- NOTE | ~2024-04-01 | XR_ITS ---
EXAMINATION: XR chest 1V portable Exam Date/Time: 04/01/2024 13:50 SOLAR INSTALLATION HELPER HISTORY: SOA, HX OF LUNG CA Comparison: 12/20/2023; CT chest 03/30/2024. RESULT: Lines, tubes, and devices: None. Lungs and pleura: Stable left upper lobe mass. Mild emphysematous change, otherwise clear. Cardiomediastinal silhouette: Stable. Other: No acute osseous or upper abdominal finding. IMPRESSION: No acute cardiopulmonary process. Reviewed, dictated and finalized at location K. R INSTALLATION HELPER
--- NOTE | 2024-04-01 13:05 | ED_ITS ---
HPI - SOB/Dyspnea General Chief Complaint: Shortness of Breath/Dyspnea Stated Complaint: SOB Time Seen by Provider: 04/01/24 12:34 History of Present Illness HPI Narrative: Patient is a 63-year-old female who presents the ER with cough and dyspnea. Ongoing for 2 days. Has not been using her home nebulizer treatments. has history of COPD an early stage lung cancer with is being treated. No fevers or chills or sweats. She wears oxygen when walking but not at rest. Feels like she cannot get a full breath. Related Data Home Medications ?Medication ?Instructions ?Recorded ?Confirmed ?Last Taken ?Type budesonide-formoterol HFA 160 2 puff inhalation BID 09/08/19 02/26/24 12/16/23 08:00 History mcg-4.5 mcg/actuation aerosol inhaler (Symbicort) losartan 100 mg tablet 100 mg PO DAILY 06/13/22 02/26/24 12/16/23 08:00 History metoprolol tartrate 50 mg tablet 50 mg PO BID 06/13/22 02/26/24 12/16/23 08:00 History nortriptyline 50 mg capsule 50 mg PO DAILY 06/13/22 02/26/24 12/16/23 08:00 History semaglutide 0.25 mg or 0.5 mg (2 1 mg subcut WEEKLY 10/15/23 02/26/24 12/12/23 History mg/3 mL) subcutaneous pen injector (Ozempic) omeprazole magnesium 20 mg 20 mg PO DAILY heart burn 12/17/23 02/26/24 12/16/23 08:00 History capsule,delayed release (Acid Tool Tender (omeprazole)) Allergies Allergy/AdvReac Type Severity Reaction Status Date / Time sertraline Allergy Intermediate Itching Verified 01/06/24 09:24 Sulfa (Sulfonamide Allergy Unknown Unknown Verified 01/06/24 09:24 Antibiotics) Review of Systems 2 Review of Systems: All systems reviewed & are unremarkable except as noted in HPI and below Constitutional: Constitutional: Reports fatigue, Denies fever(s) and Reports weakness ENT: Reports nasal congestion and Denies sore throat Cardiovascular: Cardiovascular: Reports no additional cardiovascular complaints Respiratory: Respiratory: Denies chest congestion, Reports cough, Reports dyspnea and Denies wheezing Gastrointestinal: Gastrointestinal: Reports no additional gastrointestinal complaints PMFSH Past Medical History Medical History Anxiety disorder, unspecified Asthma with COPD (chronic obstructive pulmonary disease) COPD (chronic obstructive pulmonary disease) Essential hypertension Hypertension Major depressive disorder, recurrent, unspecified Nodule of left lung RAISSA (obstructive sleep apnea) Right hand dominant Screening for hyperlipidemia Family History Family History Other Diabetes mellitus Hypertension Social History Social History Smoking packs per day: 1 Smoking cigarettes per day: 20.0 Years smoked: 35 Smoking pack-years: 35.00 Smoking status: Former smoker Smoking end date: 12/16/23 Alcohol intake: former Substance use: never Substance use type: does not use Do You Feel Safe in your Home?: Yes Lack of Transportation: No Lack of Food: Never True Current Housing: I Have Housing Concerned About Future Housing: No Difficulty Paying Gas/Electric Bills: No Difficulty Paying for Meds: No Currently Unemployed: No Education: Associate Degree Difficulty w/ Childcare or Family Care: No Spiritual care concerns: No Exam 2 Narrative: GENERAL: Chronically ill-appearing, well-nourished, and in no acute distress. HEAD: Normocephalic, atraumatic. ENT: Mucous membranes moist. NECK: Supple. CHEST: increased respiratory rate with decreased air movement and very faint wheezing. HEART: tachycardic and regular. Normal peripheral pulses. ABDOMEN: Soft, nontender, nondistended, normal active bowel sounds. EXTREMITIES: Normal range of motion. No edema. SKIN: Warm, dry, no rash. NEURO: Alert and oriented x3. PSYCH: Normal mood and affect. Course Course Emergency Course: patient is still very tachycardic. Has a hard time tolerating nebulizer treatment. DVT ruled out. Patient aware that lung mass still present and there is some coronal lymphadenopathy that was not present earlier. Admit to the hospitalist service for scheduled nebs and steroids. Still requiring O2. Vital Signs Vital signs: Vital Signs Temperature 97.8 F 04/01/24 12:04 Pulse Rate 124 H 04/01/24 12:04 Respiratory Rate 22 H 04/01/24 12:04 Blood Pressure 116/61 04/01/24 12:04 Pulse Oximetry 91 04/01/24 12:04 Oxygen Delivery Room Air 04/01/24 12:04 Temperature 97.9 F 04/01/24 18:54 Pulse Rate 121 H 04/01/24 18:54 Respiratory Rate 21 H 04/01/24 18:54 Blood Pressure 145/85 H 04/01/24 18:54 Pulse Oximetry 100 04/01/24 18:54 Oxygen Delivery Nasal Cannula 04/01/24 12:25 Oxygen Flow Rate 3 04/01/24 12:25 MDM - SOB/Dyspnea Lab Data 04/01/24 13:25 04/01/24 13:25 Labs: Lab Results 04/01/24 04/01/24 Range/Units 13:25 13:33 WBC 8.7 (4.5-10.0) K/mm3 RBC 5.39 (4.2-5.4) M/mm3 Hgb 16.4 H (12.0-15.0) g/dL Hct 49.1 H (37.0-47.0) % MCV 91.1 (80-100) fl MCH 30.4 (26-34) pg MCHC 33.4 (32-36) g/dl RDW 14.6 H (11.5-14.5) % Plt Count 291 (150-375) k/mm3 MPV 9.1 (7.4-10.4) fl Immature Gran % (Auto) 0.3 (0-0.5) % Neut % (Auto) 80.6 H (45.5-73.1) % Lymph % (Auto) 12.5 L (18.3-44.2) % [place] % (Auto) 4.4 (2.6-8.5) % Eos % (Auto) 2.0 (0-4.4) % Baso % (Auto) 0.2 (0.2-1.2) % Lymph # (Auto) 1.09 (0.9-3.2) K/mm3 [place] # (Auto) 0.4 (0.1-0.6) K/mm3 Eos # (Auto) 0.2 (0-0.3) K/mm3 Baso # (Auto) 0.0 (0.0-0.1) K/mm3 Abs Immat Gran (auto) 0.03 (0.00-0.031) K/mm3 Absolute Neuts (auto) 7.0 H (1.3-6.7) K/mm3 Absolute Nucleated RBC 0.000 (0.0-0.012) K/mm3 Nucleated RBC % 0.0 (0.0-0.2) % Sodium 134 L (137-145) mmol/L Potassium 4.4 (3.4-5.0) mmol/L Chloride 101 (98-107) mmol/L Carbon Dioxide 32 H (22-30) mmol/L Anion Gap 1 L (4-12) mmol/L BUN 15 (7-17) mg/dL Creatinine 0.60 L (0.7-1.0) mg/dL Estim Creat Clear Calc Not Reportable Estimated GFR > 60 (59 - ) Glucose 102 (65-110) mg/dL Lactic Acid 1.2 (0.7-2.0) mmol/L Calcium 9.6 (8.4-10.2) mg/dL Total Bilirubin 0.5 (0.2-1.3) mg/dL AST 23 (14-36) U/L ALT 14 (6-35) U/L Alkaline Phosphatase 177 H (38-126) U/L Total Protein 8.0 (6.3-8.2) g/dL Albumin 4.1 (3.5-5.1) g/dL Influenza A (RT-PCR) Negative (Negative) Influenza B (RT-PCR) Negative (Negative) RSV (RT-PCR) Negative (Negative) SARS-CoV-2 RNA (RT-PCR) Negative (Negative) Imaging Data Radiologist's impression: ITS Impressions Chest X-Ray 04/01/24 14:02 IMPRESSION: No acute cardiopulmonary process. Chest CTA 04/01/24 16:36 IMPRESSION: Evaluation of the subsegmental pulmonary arteries limited by motion artifact. No CT evidence of central or segmental acute pulmonary embolus. No acute process detected in the chest. Stable left upper lobe mass. Subcarinal lymphadenopathy. ECG Data EKG #1: ECG completion date: 04/01/24 ECG completion time: 14:26 EKG Interpretation: tachycardia (137), sinus rhythm, no ST changes, normal QRS, normal QT and NL axis Discharge Plan Discharge Clinical Impression: COPD exacerbation Patient Disposition: Still a Patient Condition: Stable
[2024-04-01] MEDS: ALBUTEROL SULFATE NEB 2.5 MG/3 ML INH 10 MG INHALATION (13:11)
[2024-04-01] MEDS: IPRATROPIUM BR 0.02% INH SOLN 0.5 MG/2.5 ML VIAL 1 MG INHALATION (13:11)
[2024-04-01 13:31] LABS: Basophils Percent Auto 0.2 % (0.2-1.2); Eosinophils Absolute Auto 0.2 K/mm3 (0-0.3); Hematocrit 49.1 % (37.0-47.0); Hemoglobin 16.4 g/dL (12.0-15.0); Immature Granulocyte Absolute 0.03 K/mm3 (0.00-0.031); Immature Granulocyte Percent A 0.3 % (0-0.5); Lymphocytes Absolute Auto 1.09 K/mm3 (0.9-3.2); Lymphocytes Percent Auto 12.5 % (18.3-44.2); Mean Corpuscular HGB Conc 33.4 g/dl (32-36); Mean Corpuscular Hemoglobin 30.4 pg (26-34); Mean Corpuscular Volume 91.1 fl (80-100); Mean Platelet Volume 9.1 fl (7.4-10.4); Monocytes Absolute Auto 0.4 K/mm3 (0.1-0.6); Monocytes Percent Auto 4.4 % (2.6-8.5); Neutrophils Percent Auto 80.6 % (45.5-73.1); Platelet Count Result 291 k/mm3 (150-375); Red Blood Count 5.39 M/mm3 (4.2-5.4); Red Cell Distribution Width 14.6 % (11.5-14.5); White Blood Count 8.7 K/mm3 (4.5-10.0)
[2024-04-01 13:50] LABS: Alanine Aminotransferase 14 U/L (6-35); Albumin Level 4.1 g/dL (3.5-5.1); Alkaline Phosphatase 177 U/L (38-126); Anion Gap 1 mmol/L (4-12); Aspartate Amino Transferase 23 U/L (14-36); Bilirubin,Total 0.5 mg/dL (0.2-1.3); Blood Urea Nitrogen 15 mg/dL (7-17); Calcium 9.6 mg/dL (8.4-10.2); Carbon Dioxide 32 mmol/L (22-30); Chloride 101 mmol/L (98-107); Estimated Glomerular Filt Rate > 60; Glucose 102 mg/dL (65-110); Potassium 4.4 mmol/L (3.4-5.0); Sodium 134 mmol/L (137-145)
--- NOTE | 2024-04-01 13:52 | PC.NURSE ---
Stopped pt's breathing treatment, pt feeling short of breath and struggling to catch her breath. placed pt on 3L 02.
[2024-04-01 13:54] LABS: Lactic Acid Reflex 1.2 mmol/L (0.7-2.0)
[2024-04-01 14:07] LABS: Influenza A QL RT-PCR Negative (Negative); Influenza B QL RT-PCR Negative (Negative); RSV RNA, RT-PCR Negative (Negative); SARS-CoV-2 RNA PCR Negative (Negative)
--- NOTE | 2024-04-01 14:11 | ECG_ITS ---
Test Date: 2024-04-01 14:26:08 Measurements Intervals [place] Rate: 137 P: 27 [place]: 148 QRS: 18 QRSD: 82 T: 52 QT: 293 QTc: 443 Interpretive Statements SINUS TACHYCARDIA ABNORMAL RHYTHM ECG Compared to ECG 12/16/2023 15:48:25 Myocardial infarct finding no longer present Electronically Signed On 04-06-2024 10:19:39 SAFETY COORDINATOR by Kraig Dai M.D.
[2024-04-01] MEDS: methylPREDNISolone SOD SUCC 125 MG VIAL IV PUSH (14:26)
[2024-04-01] MEDS: LORazepam INJ (*CRX) 2 MG/ML VIAL 1 MG IV PUSH (16:18)
[2024-04-01] MEDS: LEVALBUTEROL NEB 1.25 MG/3 ML INHALATION (17:30)
--- NOTE | 2024-04-01 20:42 | ADMGEN ---
This patient, Sherri Ramirez, was admitted to Medical Room 340-01. Patient/family oriented to hospital policies and general routines including ID bracelet, bed and alarms, visiting hours, pain management, procedures, bathroom and other care routines, personal items, smoking policy, room service/diet, and visiting hours. Information on how to activate the Rapid Response Team has been discussed. Patient/Family are encouraged to report perceived risks to care and to ask questions if they do not understand what they are told or what they should do.
[2024-04-01] MEDS: LEVALBUTEROL NEB 1.25 MG/3 ML 0.63 MG INHALATION (21:00)
[2024-04-01] MEDS: ACETAMINOPHEN 325 MG TABLET 650 MG PO (21:14)
[2024-04-01] MEDS: methylPREDNISolone SOD SUCC 125 MG VIAL 60 MG IV PUSH (21:15)
[2024-04-02] VITALS (36 sets, daily range): BP systolic 92–135; BP diastolic 68–113; PULSE 82–114; RESP 15–34; TEMP 36.5–36.8; O2SAT 74–98
--- NOTE | 2024-04-02 | ECHO_ITS ---
Patient Info Name: Sherri Ramirez Age: 63 years : 1960 Gender: Female Ht: 60 in Wt: 210 lbs BSA: 2.06 m2 HR: 87 bpm BP: 127 / 89 mmHg Technical Quality: Poor Exam Date: 04/02/2024 12:38 PM Exam Location: Echo Lab Patient Status: Inpatient Admit Date: 04/02/2024 Staff Ordering Physician: Ronaldo López APRN Rn Telephonic: Igor Wilkins RDCS Attending Provider: Pranay Jimenes MD Referring Physician: Rene COPELAND; Exam Type: CA echo dop color flow w con Study Info Indications R06.00 - Dyspnea, unspecified Complete two-dimensional, color flow and Doppler transthoracic echocardiogram is performed with contrast to opacify the left ventricle and to improve the deliniation of the left ventricle endocardial borders. Contrast/Agitated Saline Contrast/Ag. Saline: Definity Amount: 4.00 ml Existing IV Access: Yes IV Access Condition: patent with no signs of infiltration Reason for Poor Study: patient body habitus Summary 1. Left ventricular chamber dimension is normal. 2. Left ventricular systolic function is hyperdynamic with an ejection fraction by Biplane Method of Discs of 61 %. 3. There is no increased left ventricular wall thickness. 4. Left ventricular wall motion is normal. 5. The left ventricular diastolic function is grade I diastolic dysfunction. 6. Right ventricular chamber dimension is normal. 7. Right ventricular systolic function is normal. 8. Normal inferior vena cava with >50% collapse upon inspiration consistent with normal right atrial pressure, 3 mmHg. Left Ventricle Left ventricular chamber dimension is normal. Left ventricular systolic function is hyperdynamic with an ejection fraction by Biplane Method of Discs of 61 %. There is no increased left ventricular wall thickness. Left ventricular wall motion is normal. The left ventricular diastolic function is grade I diastolic dysfunction. Right Ventricle Right ventricular chamber dimension is normal. Right ventricular systolic function is normal. Left Atria Left atrial chamber dimension is normal. Right Atria Right atrial chamber dimension is normal. Aortic Valve The aortic valve is trileaflet. There is mild aortic valve sclerosis. There is no aortic valve stenosis. There is trace aortic valve regurgitation. Pulmonic Valve The pulmonic valve is normal. There is no pulmonic valve stenosis. There is no pulmonic regurgitation. Mitral Valve The mitral valve has calcified leaflets. There is no mitral valve stenosis. There is no mitral valve regurgitation. Tricuspid Valve The tricuspid valve leaflets are normal. There is no significant tricuspid valve stenosis. There is no tricuspid valve regurgitation. PASP cannot be calculated becasue of no TR seen. Pericardium/Pleural The pericardium appears normal. There is no pericardial effusion. Inferior Vena Cava Normal inferior vena cava with >50% collapse upon inspiration consistent with normal right atrial pressure, 3 mmHg. Aorta The aortic root size at the sinus of Valsalva is normal. The prox ascending aorta size is normal. Left Ventricular Outflow Tract Name Value Normal LVOT 2D LVOT Diameter 2.01 cm LVOT Doppler LVOT Peak Gradient 4 mmHg LVOT Mean Gradient 2 mmHg LVOT VTI 25.25 cm LVOT VTI/AV VTI Ratio 0.71 LVOT Stroke Volume 79.95 ml LVOT CO 6.64 l/min LVOT CI 3.22 L/min/m2 Pulmonic Valve Name Value Normal PV Doppler PV Peak Gradient 2 mmHg Mitral Valve Name Value Normal MV Doppler MV Decel [place] 540.71 cm/s2 MV PHT 0 s MV Area (PHT) 4.61 cm2 4.00-5.00 MV Diastolic Function MV E Peak Velocity 89.02 cm/s MV A Peak Velocity 152.13 cm/s MV E/A 0.59 MV Decel Time 0 s Tricuspid Valve Name Value Normal Estimated PAP/RSVP RA Pressure 3 mmHg <=5 Aorta Name Value Normal Ascending Aorta Ao Root Diameter (MM) 2.57 cm Ao Root Diam Index (MM) 1.25 cm/m2 Aortic Valve Name Value Normal AV Doppler AV Peak Velocity 171.28 cm/s AV Peak Gradient 12 mmHg AV Mean Gradient 6 mmHg AV VTI 35.64 cm AV Area (Cont Eq VTI) 2.24 cm2 >=3.00 AV Area (Cont Eq Ced) 1.92 cm2 AV Regurgitation 2D LVOT Area 3.17 cm2 Ventricles Name Value Normal LV Dimensions 2D/MM IVS Diastole Thickness (MM) 0.92 cm 0.60-0.90 LVID Diastole (MM) 4.50 cm 3.80-5.20 LVIW Diastolic Thickness (MM) 0.83 cm 0.60-0.90 LVID Systole (MM) 2.24 cm 2.20-3.50 LVOT Diameter 2.01 cm LV Mass (MM Cubed) 127.64 g 67.00-162.00 LV Mass Index (MM Cubed) 0.01 g/cm2 0.00-0.01 Relative Wall Thickness (MM) 0.37 LV Fractional Shortening/Ejection Fraction 2D/MM LV Fractional Shortening (MM) 50 % 27-45 LV EF (MM Teicholz) 82 % 54-74 LV Diastolic Volume (4C MOD) 65.92 ml LV EF (4C MOD) 62 % LV Diastolic Volume (2C MOD) 51.32 ml LV EF (2C MOD) 60 % LV Diastolic Volume (BP MOD) 58.40 ml 46.00-106.00 LV Diastolic Volume Index (BP MOD) 0.03 l/m2 0.03-0.06 LV Systolic Volume (BP MOD) 23.06 ml 14.00-42.00 LV Systolic Volume Index (BP MOD) 0.01 l/m2 0.01-0.02 LV EF (BP MOD) 61 % 54-74 LV Diastolic Length (4C) 7.17 cm LV Systolic Length (4C) 6.52 cm LV Stroke Volume (4C MOD) 40.84 ml Atria Name Value Normal LA Dimensions LA Dimension (MM) 3.61 cm 2.70-3.80 LA Volume (4C A-L) 31.96 ml LA Volume (BP A-L) 30.18 ml RA Dimensions RA Area (4C) 11.38 cm2 <=18.00 Report Signatures
[2024-04-02] MEDS: METOPROLOL TARTRATE 50 MG TAB PO ×3 (02:04→20:40)
[2024-04-02] MEDS: MAGNESIUM SULF 2 GM/WATER 50ML 2 GM/50 ML BAG IVPB (02:05)
--- NOTE | 2024-04-02 04:31 | PM.IMHP ---
H&P: HPI History of Present Illness Date/Time: 04/02/24 04:31 Chief Complaint: Dyspnea PMFSH Past Medical History Medical History Anxiety disorder, unspecified Asthma with COPD (chronic obstructive pulmonary disease) COPD (chronic obstructive pulmonary disease) Essential hypertension Hypertension Major depressive disorder, recurrent, unspecified Nodule of left lung RAISSA (obstructive sleep apnea) Right hand dominant Screening for hyperlipidemia Family History Family History (Updated 04/01/24 @ 21:06 by Tarsha Griggs RN) Mother Diabetes mellitus Heart attack Hypertension Father Heart attack Hypertension Smoker Social History Social History Smoking packs per day: 1 Smoking cigarettes per day: 20.0 Years smoked: 40 Smoking pack-years: 40.00 Smoking status: Former smoker Tobacco type: cigarettes Smoking end date: 12/31/23 Alcohol intake: never Substance use: never Substance use type: does not use Do You Feel Safe in your Home?: Yes Lack of Transportation: No Lack of Food: Never True Current Housing: I Have Housing Concerned About Future Housing: No Difficulty Paying Gas/Electric Bills: No Difficulty Paying for Meds: No Currently Unemployed: No Education: High School Diploma/GED Difficulty w/ Childcare or Family Care: No Spiritual care concerns: No Meds Home Medications and Allergies Home Medications ?Medication ?Instructions ?Recorded ?Confirmed ?Type albuterol sulfate 90 mcg/actuation 2 inhalation inhalation Q4H #8.5 02/17/19 04/01/24 Rx aerosol inhaler (ProAir HFA) grams budesonide-formoterol HFA 160 2 puff inhalation BID 09/08/19 04/01/24 History mcg-4.5 mcg/actuation aerosol inhaler (Symbicort) losartan 100 mg tablet 100 mg PO DAILY 06/13/22 04/01/24 History metoprolol tartrate 50 mg tablet 50 mg PO BID 06/13/22 04/01/24 History nortriptyline 50 mg capsule 50 mg PO DAILY 06/13/22 04/01/24 History semaglutide 0.25 mg or 0.5 mg (2 1 mg subcut WEEKLY 10/15/23 04/01/24 History mg/3 mL) subcutaneous pen injector (Ozempic) tiotropium bromide 2.5 2 puff inhalation DAILY 1 month #4 11/15/23 04/01/24 Rx mcg/actuation mist for inhalation grams (Spiriva Respimat) omeprazole magnesium 20 mg 20 mg PO DAILY heart burn 12/17/23 04/01/24 History capsule,delayed release (Ac[facility] [employer] [facility] (omeprazole)) ipratropium 0.5 mg-albuterol 3 mg 3 ml inhalation Q6HRT PRN SOB, 12/20/23 04/01/24 Rx (2.5 mg base)/3 mL nebulization wheezing #180 mL soln nicotine 21 mg/24 hr daily 1 patch transdermal DAILY #30 ea 12/20/23 04/01/24 Rx transdermal patch buspirone 5 mg tablet 5 mg PO BID 1 month #60 tabs 01/01/24 04/01/24 Rx Allergies Allergy/AdvReac Type Severity Reaction Status Date / Time sertraline Allergy Intermediate Itching Verified 01/06/24 09:24 Sulfa (Sulfonamide Allergy Unknown Unknown Verified 01/06/24 09:24 Antibiotics) Vital Signs Vital Signs - 24 hr 04/01/24 12:04 04/01/24 12:23 04/01/24 12:25 Temperature 36.6 C Pulse Rate 124 H 120 H Respiratory Rate 22 H Blood Pressure 116/61 Pulse Oximetry 91 97 Oxygen Delivery Room Air Nasal Cannula Oxygen Flow Rate 3 04/01/24 12:28 04/01/24 12:51 04/01/24 13:11 Temperature 36.8 C Pulse Rate 121 H 62 122 H Respiratory Rate 22 H 19 22 H Blood Pressure 150/57 H 133/69 Pulse Oximetry 97 99 Oxygen Delivery Oxygen Flow Rate 04/01/24 14:10 04/01/24 17:25 04/01/24 17:30 Temperature 36.0 C L Pulse Rate 27 L 120 H 126 H Respiratory Rate 22 H 19 22 H Blood Pressure 107/57 L Pulse Oximetry 94 Oxygen Delivery Oxygen Flow Rate 04/01/24 17:39 04/01/24 18:54 04/01/24 21:00 Temperature 36.6 C Pulse Rate 121 H 121 H Respiratory Rate 21 H 21 H Blood Pressure 145/85 H Pulse Oximetry 100 96 Oxygen Delivery Oxygen Flow Rate 3 04/01/24 21:09 04/01/24 21:23 04/01/24 22:00 Temperature 36.5 C Pulse Rate 116 H 120 H 120 H Respiratory Rate 20 24 H Blood Pressure 134/72 Pulse Oximetry 99 Oxygen Delivery Oxygen Flow Rate 04/02/24 00:00 04/02/24 02:04 Temperature Pulse Rate 114 H 111 H Respiratory Rate Blood Pressure Pulse Oximetry Oxygen Delivery Oxygen Flow Rate Exam Narrative: GENERAL: Chronically ill-appearing, obese HEAD: Normocephalic, atraumatic. ENT: Mucous membranes moist. NECK: Supple. CHEST: increased respiratory rate with decreased air movement and very faint wheezing. HEART: regular rate and rhythm. Normal peripheral pulses. ABDOMEN: Soft, nontender, nondistended, normal active bowel sounds. EXTREMITIES: Normal range of motion. No edema. Purplish discoloration of feet and hands, warm to touch with good pulses, patient reports chronic discoloration SKIN: Warm, dry, no rash. NEURO: Alert and oriented x3. Moves all extremities well H&P: Results Labs Labs: Short CBC 04/01/24 Range/Units 13:25 WBC 8.7 (4.5-10.0) K/mm3 Hgb 16.4 H (12.0-15.0) g/dL Hct 49.1 H (37.0-47.0) % Plt Count 291 (150-375) k/mm3 BMP 04/01/24 13:25 Sodium 134 L Potassium 4.4 Chloride 101 Carbon Dioxide 32 H BUN 15 Creatinine 0.60 L Glucose 102 Calcium 9.6 Liver Function 04/01/24 Range/Units 13:25 Total Bilirubin 0.5 (0.2-1.3) mg/dL AST 23 (14-36) U/L ALT 14 (6-35) U/L Alkaline Phosphatase 177 H (38-126) U/L Albumin 4.1 (3.5-5.1) g/dL ABG ABG results: PH 7.268, pCO2 54.9, PO2 75.9, HC03 245 Attestation: I personally reviewed and interpreted this ABG as follows: Interpretation: Respiratory acidosis without compensation Pulse Oximetry SpO2 results: 98-100% on 3 liters/minute nasal cannula Attestation: I personally reviewed and interpreted this pulse oximetry as follows: Interpretation: Patient continues to require oxygen, might be over oxygen needed given COPD history and elevated pCO2 ECG Attestation: I personally reviewed and interpreted this ECG as follows: ECG completion date: 04/01/24 ECG completion time: 14:26 Prior ECG tracings: available for review Interpretation: Sinus tachycardia rate 137, UT 148, QRS duration 82, QTC 443, QRS axis 18? no STEMI or acute ischemic changes Imaging Chest x-ray: Radiologist's impression: EXAMINATION: XR chest 1V portable Exam Date/Time: 04/01/2024 13:50 ENTERTAINMENT [employer] MEDIA CORRESPONDENT HISTORY: SOA, HX OF LUNG CA Comparison: 12/20/2023; CT chest 03/30/2024. RESULT: Lines, tubes, and devices: None. Lungs and pleura: Stable left upper lobe mass. Mild emphysematous change, otherwise clear. Cardiomediastinal silhouette: Stable. Other: No acute osseous or upper abdominal finding. IMPRESSION: No acute cardiopulmonary process. Reviewed, dictated and finalized at location K. RTAINMENT [facility] MEDIA CORRESPONDENT CT scan - chest: Radiologist's impression: EXAMINATION: CTA chest PE protocol DATE: 04/01/2024 16:31 INDICATION: pulmonary ebolism TECHNIQUE: Computed tomography angiography (CTA) of the chest was performed with 100 mL Omnipaque-350 intravenous contrast timed to evaluate the pulmonary arteries. Coronal maximum intensity projection 3D-reconstructions were created by the technologist. The dose-length product (DLP) was 726.82 mGy-cm. Automated exposure control and iterative reconstruction technique were employed. COMPARISON: 03/30/2024. FINDINGS: Moderate motion artifact. Lung parenchyma and airways: Moderate emphysematous change. Stable elongated multinodular mass in the left upper lobe. Patent central airways. Pleura: Unremarkable. Thoracic inlet, axillae and chest wall: Unremarkable. Thoracic aorta: No significant dilation. No dissection. Moderate arch calcification. 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 Mediastinum: Dilated central pulmonary arteries as can be seen with pulmonary artery hypertension. Enlarged subcarinal lymph node. Heart and pericardium: Normal. Coronary artery calcifications: Mild. Upper abdomen: No significant finding. Bones: No acute osseous finding. Pulmonary arteries: Study quality: Exam limited by moderate motion artifact. No segmental or central pulmonary emboli detected. Subsegmental pulmonary arteries not adequately evaluated. IMPRESSION: Evaluation of the subsegmental pulmonary arteries limited by motion artifact. No CT evidence of central or segmental acute pulmonary embolus. No acute process detected in the chest. Stable left upper lobe mass. Subcarinal lymphadenopathy. Reviewed, dictated and finalized at location K. [employer]IA CORRESPONDENT Assessment and Plan Assessment and plan (1) COPD exacerbation: Code(s): J44.1 - Chronic obstructive pulmonary disease with (acute) exacerbation Status: Acute Assessment and Plan: -Dyspnea on exertion with wheezing/tachypnea -Nebs, Steroids, IV magnesium -Wheezing improved after IV magnesium -Consult Pulmonology (2) Lung cancer: Qualifiers: Laterality: left Lung location: upper lobe of lung Qualified Code(s): C34.12 - Malignant neoplasm of upper lobe, left bronchus or lung Code(s): C34.90 - Malignant neoplasm of unspecified part of unspecified bronchus or lung Status: Acute Assessment and Plan: See 1 (3) Respiratory acidosis: Code(s): E87.29 - Other acidosis Status: Acute Assessment and Plan: -Uncompensated respiratory acidosis -Normal lactic acid -May require BiPap if no improvement during waking hours (4) Hypertension: Code(s): I10 - Essential (primary) hypertension Status: Acute Assessment and Plan: -Blood pressure reviewed and stable -Continue home medications Quality VTE Prophylaxis VTE prophylaxis: pharmacologic ordered Hospitalist MIPS Advance Care Plan I have confirmed that the patient's Advanced Care Plan is present, code status is documented, or surrogate decision maker is listed in patient medical record.: Yes Medication Reconciliation I have utilized all available resources to obtain, update and review the patients current medications (includes all prescriptions, OTC, herbals, cannabis, and nutritional supplements).: Yes
[2024-04-02] MEDS: methylPREDNISolone SOD SUCC 125 MG VIAL 60 MG IV PUSH ×4 (05:12→23:34)
[2024-04-02 05:15] LABS: Base Excess ABG -3.3 mEq/l (+/-2.0); Fractional Inspired Oxygen 32 %; HCO3 ABG 24.5 mEq/l (22.0-26.0); Oxygen Content ABG 20.3 %vol (16.0-22.0); Oxygen Saturation ABG 93.2 % (95.0-100.0); Oxyhemoglobin 93.5 % THb (90.0-100.0); PCO2 ABG 54.9 mmHg (35.0-45.0); PO2 ABG 75.9 mmHg (80.0-100.0); PO2 FiO2 Ratio Arterial Blood 2.37 %; Total Hemoglobin 15.4 g/dL (12.0-18.0)
[2024-04-02 05:18] LABS: Device NASAL CANNULA; Modified Allen's Test Pass; Site Drawn RIGHT RADIAL; pH ABG 7.268 (7.350-7.450)
[2024-04-02 07:02] LABS: Basophils Percent Auto 0.1 % (0.2-1.2); Hematocrit 48.3 % (37.0-47.0); Hemoglobin 15.5 g/dL (12.0-15.0); Immature Granulocyte Absolute 0.03 K/mm3 (0.00-0.031); Immature Granulocyte Percent A 0.3 % (0-0.5); Lymphocytes Absolute Auto 0.65 K/mm3 (0.9-3.2); Lymphocytes Percent Auto 6.5 % (18.3-44.2); Mean Corpuscular HGB Conc 32.1 g/dl (32-36); Mean Corpuscular Hemoglobin 30.4 pg (26-34); Mean Corpuscular Volume 94.7 fl (80-100); Monocytes Absolute Auto 0.1 K/mm3 (0.1-0.6); Monocytes Percent Auto 0.9 % (2.6-8.5); Neutrophils Absolute Auto 9.3 K/mm3 (1.3-6.7); Neutrophils Percent Auto 92.2 % (45.5-73.1); Platelet Count Result 293 k/mm3 (150-375); Red Cell Distribution Width 14.5 % (11.5-14.5); White Blood Count 10.1 K/mm3 (4.5-10.0)
[2024-04-02] MEDS: UMECLIDINIUM BROMIDE 62.5 MCG ELLIPTA 1 PUFF INHALATION (07:09)
[2024-04-02] MEDS: FLUTICASONE/SALMETEROL 115-21 MCG INHALER 1 PUFF 2 PUFF INHALATION ×2 (07:10→20:13)
[2024-04-02] MEDS: LEVALBUTEROL NEB 1.25 MG/3 ML 0.63 MG INHALATION ×2 (07:11→13:50)
[2024-04-02 07:12] LABS: Alanine Aminotransferase 15 U/L (6-35); Alkaline Phosphatase 164 U/L (38-126); Anion Gap 0 mmol/L (4-12); Aspartate Amino Transferase 20 U/L (14-36); Bilirubin,Total 0.4 mg/dL (0.2-1.3); Blood Urea Nitrogen 15 mg/dL (7-17); Calcium 9.5 mg/dL (8.4-10.2); Carbon Dioxide 32 mmol/L (22-30); Chloride 101 mmol/L (98-107); Estimated CRCL calculation 74 ml/min; Estimated Glomerular Filt Rate > 60; Glucose 141 mg/dL (65-110); Magnesium 2.6 mg/dL (1.6-2.3); Potassium 5.2 mmol/L (3.4-5.0); Sodium 133 mmol/L (137-145)
--- NOTE | 2024-04-02 08:08 | PM.IMPN ---
Progress Note: A&P Assessment and Plan (1) COPD exacerbation: Code(s): J44.1 - Chronic obstructive pulmonary disease with (acute) exacerbation Status: Acute Assessment and Plan: -Dyspnea on exertion with wheezing/tachypnea -Nebs, Steroids, IV magnesium -Wheezing improved after IV magnesium -Consult Pulmonology Continue steroid Influenza RSV COVID negative Chest x-ray with no acute cardiopulmonary process CTA negative for PE central or segmental. Acute process. Stable left upper lobe mass with subcarinal lymphadenopathy (2) Lung cancer: Qualifiers: Laterality: left Lung location: upper lobe of lung Qualified Code(s): C34.12 - Malignant neoplasm of upper lobe, left bronchus or lung Code(s): C34.90 - Malignant neoplasm of unspecified part of unspecified bronchus or lung Status: Acute Assessment and Plan: See 1 (3) Respiratory acidosis: Code(s): E87.29 - Other acidosis Status: Acute Assessment and Plan: -Uncompensated respiratory acidosis -Normal lactic acid -May require BiPap if no improvement during waking hours Will recheck ABG (4) Hypertension: Code(s): I10 - Essential (primary) hypertension Status: Acute Assessment and Plan: -Blood pressure reviewed and stable -Continue home medications Plan DVT prophylaxis Lovenox Subjective Date/time seen: 04/02/24 08:08 Interval history: Feels a little bit better. Still wheezy. On 3 L oxygen via nasal cannula. Review of Systems Review of Systems: All systems reviewed & are unremarkable except as noted in HPI and below Exam Narrative: GENERAL: Chronically ill-appearing, obese under acute distress HEAD: Normocephalic, atraumatic. ENT: Mucous membranes moist. NECK: Supple. CHEST: Bilateral faint wheezing and expiratory no respiratory distress HEART: regular rate and rhythm. Normal peripheral pulses. ABDOMEN: Soft, nontender, nondistended, normal active bowel sounds. EXTREMITIES: Normal range of motion. No edema. Purplish discoloration of feet and hands, warm to touch with good pulses, patient reports chronic discoloration SKIN: Warm, dry, no rash. NEURO: Alert and oriented x3. Moves all extremities well Objective Data Vital Signs Vital Signs: Vital Signs - 24 hr 04/01/24 12:04 04/01/24 12:23 04/01/24 12:25 Temperature 97.8 F Pulse Rate 124 H 120 H Respiratory Rate 22 H Blood Pressure 116/61 Pulse Oximetry 91 97 Oxygen Delivery Room Air Nasal Cannula Oxygen Flow Rate 3 04/01/24 12:28 04/01/24 12:51 04/01/24 13:11 Temperature 98.2 F Pulse Rate 121 H 62 122 H Respiratory Rate 22 H 19 22 H Blood Pressure 150/57 H 133/69 Pulse Oximetry 97 99 Oxygen Delivery Oxygen Flow Rate 04/01/24 14:10 04/01/24 17:25 04/01/24 17:30 Temperature 96.8 F L Pulse Rate 27 L 120 H 126 H Respiratory Rate 22 H 19 22 H Blood Pressure 107/57 L Pulse Oximetry 94 Oxygen Delivery Oxygen Flow Rate 04/01/24 17:39 04/01/24 18:54 04/01/24 20:30 Temperature 97.9 F Pulse Rate 121 H 121 H Respiratory Rate 21 H 21 H Blood Pressure 145/85 H Pulse Oximetry 100 99 Oxygen Delivery Nasal Cannula Oxygen Flow Rate 3 04/01/24 21:00 04/01/24 21:09 04/01/24 21:23 Temperature Pulse Rate 116 H 120 H Respiratory Rate 20 Blood Pressure Pulse Oximetry 96 Oxygen Delivery Oxygen Flow Rate 3 04/01/24 22:00 04/02/24 00:00 04/02/24 02:04 Temperature 97.7 F Pulse Rate 120 H 114 H 111 H Respiratory Rate 24 H Blood Pressure 134/72 Pulse Oximetry 99 Oxygen Delivery Oxygen Flow Rate 04/02/24 04:00 04/02/24 05:42 Temperature 97.9 F Pulse Rate 82 87 Respiratory Rate 20 Blood Pressure 127/89 Pulse Oximetry 98 Oxygen Delivery Oxygen Flow Rate Intake/Output Intake/Output: Intake & Output 03/30/24 03/31/24 04/01/24 04/02/24 23:59 23:59 23:59 23:59 Intake Total 500 400 Balance 500 400 Meds/Results Medications: Active Medications Generic Name Dose Route Start Last Admin Trade Name Freq PRN Reason Stop Dose Admin Acetaminophen 650 mg 04/01/24 17:35 04/01/24 21:14 Acetaminophen 325 Mg Tablet PO 650 mg Q4H PRN Administration Mild Pain (1-3) or Fever Hydrocodone Bitart/Acetaminophen 1 tab 04/01/24 17:35 Hydrocodone/Acetaminophen (*Crx) 5-325 Mg Tablet PO Q4H PRN Pain Rated 4-6 Albuterol 2 puff 04/02/24 01:33 Albuterol Sulfate (*Sp) Aerosol 1 Puff INHALATION Q4HRT PRN wheezing Buspirone HCl 5 mg 04/02/24 09:00 Buspirone Hcl 5 Mg Tablet PO BID [facility] Enoxaparin Sodium 40 mg 04/02/24 09:00 Enoxaparin 40 Mg/0.4 Ml Syringe SUB-Q DAILY [facility] Levalbuterol HCl 0.63 mg 04/01/24 20:00 04/02/24 07:11 Levalbuterol Neb 1.25 Mg/3 Ml INHALATION 0.63 mg Q6HRT ARGELIA Administration Losartan Potassium 100 mg 04/02/24 09:00 Losartan Potassium 100 Mg Tablet PO DAILY [facility] Methylprednisolone Sodium Succinate 60 mg 04/01/24 21:00 04/02/24 05:12 Methylprednisolone Sod Succ 125 Mg Vial IV PUSH 60 mg Q6HR ARGELIA Administration Metoprolol Tartrate 50 mg 04/02/24 02:00 04/02/24 02:04 Metoprolol Tartrate 50 Mg Tab PO 50 mg Q12HR ARGELIA Administration Nicotine 1 patch 04/02/24 09:00 Nicotine (*Pbkc) 21 Mg Patch TRANSDERM DAILY [facility] Nortriptyline HCl 50 mg 04/02/24 09:00 Nortriptyline Hcl 25 Mg Capsule PO DAILY [facility] Ondansetron HCl 4 mg 04/01/24 17:35 Ondansetron Inj 4 Mg/2 Ml Vial IV PUSH Q4H PRN Nausea Pantoprazole Sodium 40 mg 04/02/24 09:00 Pantoprazole 40 Mg Tablet PO QAM [facility] Perflutren Lipid Microsphere 0 ml 04/02/24 01:43 Perflutren Lipid Microspheres 1.5 Ml Vial Diluted To 10 Ml Total Volume IV PUSH 04/05/24 01:43 ONCE PRN adequate visualization Protocol Fluticasone/Salmeterol 2 puff 04/02/24 08:00 04/02/24 07:10 Fluticasone/Salmeterol 115-21 Mcg Inhaler 1 Puff INHALATION 2 puff Q12HRT [facility] Administration Umeclidinium [place] 1 puff 04/02/24 08:00 04/02/24 07:09 Umeclidinium [place] 62.5 Mcg Ellipta INHALATION 1 puff DAILYRT ARGELIA Administration Radiology Results: ITS Impressions Chest X-Ray 04/01/24 14:02 IMPRESSION: No acute cardiopulmonary process. Chest CTA 04/01/24 16:36 IMPRESSION: Evaluation of the subsegmental pulmonary arteries limited by motion artifact. No CT evidence of central or segmental acute pulmonary embolus. No acute process detected in the chest. Stable left upper lobe mass. Subcarinal lymphadenopathy. Labs Labs: Laboratory Results - last 24 hr 04/01/24 04/01/24 04/02/24 13:25 13:33 04:48 WBC 8.7 RBC 5.39 Hgb 16.4 H Hct 49.1 H MCV 91.1 MCH 30.4 MCHC 33.4 RDW 14.6 H Plt Count 291 MPV 9.1 Immature Gran % (Auto) 0.3 Neut % (Auto) 80.6 H Lymph % (Auto) 12.5 L [place] % (Auto) 4.4 Eos % (Auto) 2.0 Baso % (Auto) 0.2 Lymph # (Auto) 1.09 [place] # (Auto) 0.4 Eos # (Auto) 0.2 Baso # (Auto) 0.0 Abs Immat Gran (auto) 0.03 Absolute Neuts (auto) 7.0 H Absolute Nucleated RBC 0.000 Nucleated RBC % 0.0 Puncture Site Right radial ABG pH 7.268 L* ABG pCO2 54.9 H ABG pO2 75.9 L ABG PO2/FiO2 Ratio 2.37 ABG HCO3 24.5 ABG O2 Saturation 93.2 L ABG O2 Content 20.3 ABG Base Excess -3.3 A-a Gradient 88.0 Oxyhemoglobin 93.5 Total Hemoglobin 15.4 O2 Delivery Device Nasal cannula O2 Liters/Min 3.0 FiO2 32 Sodium 134 L Potassium 4.4 Chloride 101 Carbon Dioxide 32 H Anion Gap 1 L BUN 15 Creatinine 0.60 L Estim Creat Clear Calc Not Reportable Estimated GFR > 60 Glucose 102 Lactic Acid 1.2 Calcium 9.6 Magnesium Total Bilirubin 0.5 AST 23 ALT 14 Alkaline Phosphatase 177 H Total Protein 8.0 Albumin 4.1 Influenza A (RT-PCR) Negative Influenza B (RT-PCR) Negative RSV (RT-PCR) Negative SARS-CoV-2 RNA (RT-PCR) Negative 04/02/24 06:52 WBC RBC Hgb Hct MCV MCH MCHC RDW Plt Count MPV Immature Gran % (Auto) Neut % (Auto) Lymph % (Auto) [place] % (Auto) Eos % (Auto) Baso % (Auto) Lymph # (Auto) [place] # (Auto) Eos # (Auto) Baso # (Auto) Abs Immat Gran (auto) Absolute Neuts (auto) Absolute Nucleated RBC Nucleated RBC % Puncture Site ABG pH ABG pCO2 ABG pO2 ABG PO2/FiO2 Ratio ABG HCO3 ABG O2 Saturation ABG O2 Content ABG Base Excess A-a Gradient Oxyhemoglobin Total Hemoglobin O2 Delivery Device O2 Liters/Min FiO2 Sodium 133 L Potassium 5.2 H Chloride 101 Carbon Dioxide 32 H Anion Gap 0 L BUN 15 Creatinine 0.70 Estim Creat Clear Calc 74 Estimated GFR > 60 Glucose 141 H Lactic Acid Calcium 9.5 Magnesium 2.6 H Total Bilirubin 0.4 AST 20 ALT 15 Alkaline Phosphatase 164 H Total Protein 8.0 Albumin 4.0 Influenza A (RT-PCR) Influenza B (RT-PCR) RSV (RT-PCR) SARS-CoV-2 RNA (RT-PCR)
[2024-04-02 09:23] LABS: Alveolar/Arterial O2 Gradient 108.4 mmHg; Base Excess ABG -1.1 mEq/l (+/-2.0); Fractional Inspired Oxygen 32 %; HCO3 ABG 26.4 mEq/l (22.0-26.0); Oxygen Content ABG 19.5 %vol (16.0-22.0); Oxyhemoglobin 88.1 % THb (90.0-100.0); PCO2 ABG 54.9 mmHg (35.0-45.0); PO2 ABG 55.5 mmHg (80.0-100.0); PO2 FiO2 Ratio Arterial Blood 1.73 %; Total Hemoglobin 15.8 g/dL (12.0-18.0)
[2024-04-02 09:25] LABS: Device NASAL CANNULA; Site Drawn RIGHT BRACHIAL
[2024-04-02 09:26] LABS: Oxygen Saturation ABG 85.3 % (95.0-100.0)
[2024-04-02] MEDS: LOSARTAN POTASSIUM 100 MG TABLET PO (09:33)
[2024-04-02] MEDS: busPIRone HCL 5 MG TABLET PO ×2 (09:33→17:11)
[2024-04-02] MEDS: levoFLOXacin 500 MG TABLET PO (09:33)
[2024-04-02] MEDS: ENOXAPARIN 40 MG/0.4 ML SYRINGE SUB-Q (09:34)
[2024-04-02] MEDS: PANTOPRAZOLE 40 MG TABLET PO (09:34)
[2024-04-02] MEDS: NORTRIPTYLINE HCL 25 MG CAPSULE 50 MG PO (09:34)
[2024-04-02] MEDS: NICOTINE (*PBKC) 21 MG PATCH 1 PATCH TRANSDERM (09:34)
--- NOTE | 2024-04-02 12:07 | PC.NURSE ---
This patient, Sherri Ramirez, was received from [facility] on 04/02/24 at 1150. Patient/family oriented to unit policies and routines
[2024-04-02 12:23] LABS: Alveolar/Arterial O2 Gradient 92.8 mmHg; Base Excess ABG 1.6 mEq/l (+/-2.0); Fractional Inspired Oxygen 30 %; HCO3 ABG 28.3 mEq/l (22.0-26.0); Oxygen Content ABG 20.1 %vol (16.0-22.0); Oxygen Saturation ABG 89.2 % (95.0-100.0); Oxyhemoglobin 90.5 % THb (90.0-100.0); PCO2 ABG 52.5 mmHg (35.0-45.0); PO2 ABG 59.4 mmHg (80.0-100.0); PO2 FiO2 Ratio Arterial Blood 1.98 %; Total Hemoglobin 15.8 g/dL (12.0-18.0)
[2024-04-02 12:24] LABS: Device NON-INVASIVE VENT; Site Drawn RIGHT BRACHIAL
[2024-04-02 12:25] LABS: Non-Invasive Expiratory Pressure 6 CMH2O; Non-Invasive Inspiratory Pressure 12 CMH2O; Non-Invasive Vent Rate 12 /MIN
[2024-04-02] MEDS: PERFLUTREN LIPID MICROSPHERES 1.5 ML VIAL DILUTED TO 10 ML TOTAL VOLUME IV PUSH (15:15)
--- NOTE | 2024-04-02 15:16 | IVDEFINITY ---
Prior to administration of IV Definity the patient was educated on the risks and benefits of the imaging enhancing agent including potential adverse side effects. The patient verbalized understanding. Allergies were verified. No exclusion criteria were identified and at least one of the following inclusion criteria were met: 1) physician request, 2) patient technically difficult to image (per the [place] [employer] guidelines of two or more segments not discernable within the apical view), or 3) questionable left ventricular function. ?
[2024-04-02] MEDS: ACETAMINOPHEN 325 MG TABLET 650 MG PO (17:11)
[2024-04-02] MEDS: HYDROcodone/acetaminophen (*CRX) 5-325 MG TABLET 1 TAB PO (20:41)
[2024-04-03] VITALS (51 sets, daily range): BP systolic 121–135; BP diastolic 79–113; PULSE 83–108; RESP 17–31; TEMP 36.5–36.8; O2SAT 86–97
[2024-04-03 04:26] LABS: Basophils Percent Auto 0.1 % (0.2-1.2); Eosinophils Percent Auto 0.1 % (0-4.4); Hematocrit 44.6 % (37.0-47.0); Hemoglobin 14.7 g/dL (12.0-15.0); Immature Granulocyte Absolute 0.07 K/mm3 (0.00-0.031); Immature Granulocyte Percent A 0.5 % (0-0.5); Lymphocytes Percent Auto 7.1 % (18.3-44.2); Mean Corpuscular Hemoglobin 30.7 pg (26-34); Mean Corpuscular Volume 93.1 fl (80-100); Mean Platelet Volume 9.3 fl (7.4-10.4); Monocytes Absolute Auto 0.4 K/mm3 (0.1-0.6); Monocytes Percent Auto 2.4 % (2.6-8.5); Neutrophils Percent Auto 89.8 % (45.5-73.1); Platelet Count Result 280 k/mm3 (150-375); Red Blood Count 4.79 M/mm3 (4.2-5.4); Red Cell Distribution Width 14.3 % (11.5-14.5); White Blood Count 15.5 K/mm3 (4.5-10.0)
[2024-04-03 04:45] LABS: Alanine Aminotransferase 14 U/L (6-35); Alkaline Phosphatase 150 U/L (38-126); Anion Gap 1 mmol/L (4-12); Aspartate Amino Transferase 16 U/L (14-36); Bilirubin,Total 0.4 mg/dL (0.2-1.3); Blood Urea Nitrogen 23 mg/dL (7-17); Calcium 9.7 mg/dL (8.4-10.2); Carbon Dioxide 33 mmol/L (22-30); Chloride 98 mmol/L (98-107); Estimated CRCL calculation 66 ml/min; Estimated Glomerular Filt Rate > 60; Glucose 135 mg/dL (65-110); Magnesium 2.4 mg/dL (1.6-2.3); Sodium 132 mmol/L (137-145)
[2024-04-03] MEDS: HYDROcodone/acetaminophen (*CRX) 5-325 MG TABLET 1 TAB PO ×3 (05:01→20:35)
[2024-04-03] MEDS: methylPREDNISolone SOD SUCC 125 MG VIAL 60 MG IV PUSH ×3 (05:01→17:41)
[2024-04-03] MEDS: FLUTICASONE/SALMETEROL 115-21 MCG INHALER 1 PUFF 2 PUFF INHALATION ×2 (08:28→20:57)
[2024-04-03] MEDS: LEVALBUTEROL NEB 1.25 MG/3 ML 0.63 MG INHALATION ×3 (08:28→20:58)
[2024-04-03] MEDS: UMECLIDINIUM BROMIDE 62.5 MCG ELLIPTA 1 PUFF INHALATION (08:28)
[2024-04-03] MEDS: LOSARTAN POTASSIUM 100 MG TABLET PO (08:47)
[2024-04-03] MEDS: levoFLOXacin 500 MG TABLET PO (08:47)
[2024-04-03] MEDS: busPIRone HCL 5 MG TABLET PO ×2 (08:47→17:41)
[2024-04-03] MEDS: ENOXAPARIN 40 MG/0.4 ML SYRINGE SUB-Q (08:47)
[2024-04-03] MEDS: NORTRIPTYLINE HCL 25 MG CAPSULE 50 MG PO (08:48)
[2024-04-03] MEDS: PANTOPRAZOLE 40 MG TABLET PO (08:48)
[2024-04-03] MEDS: NICOTINE (*PBKC) 21 MG PATCH 1 PATCH TRANSDERM (08:48)
[2024-04-03] MEDS: METOPROLOL TARTRATE 50 MG TAB PO ×2 (08:48→20:34)
--- NOTE | 2024-04-03 17:08 | P.CONPL_ITS ---
Assessment and Plan Assessment and plan (1) COPD exacerbation: Code(s): J44.1 - Chronic obstructive pulmonary disease with (acute) exacerbation Status: Acute Assessment and Plan: possibly triggered by Viral infection (2) Lung cancer: Qualifiers: Laterality: left Lung location: upper lobe of lung Qualified Code(s): C34.12 - Malignant neoplasm of upper lobe, left bronchus or lung Code(s): C34.90 - Malignant neoplasm of unspecified part of unspecified bronchus or lung Status: Acute Assessment and Plan: She is not a surgical candidate, completed radiation 5 treatments total. Getting chest CT 03/30/24. 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 bronchodilators; she is on Symbicort and Duoneb; also listed a a home medication is Spiriva tiotropium bromide 2.5 ,cg/puff; this is overlapping LAMA, needs to stop one of the anticholinergics. 2. IV steroids, - this may account for increase in WBC 3. She is on nicotine patch; in the office said that she quit tobacco in November. Appears that she started smoking again. 4. Decrease use of O2 at levels above what is needed. She was using O2 at 3 L with exertion at home, started using 3 L with rest as well. Start low, go slowly. If she was smoking, this alters the interpretation of the saturation. Can make saturation appear higher than reality. Out patient sleep testing. Use iPAP with sleep as tolerated in the hospital. He rpCO2 is normal, could use APAP. History of Present Illness History of Present Illness Consult date: 04/03/24 Chief complaint: COPD Exacerbation Narrative: patient was seen Apr 03 at 19:38 in [facility] [id number] NEW: Sherri Ramirez is 63 years old, followed in pulmonary clinic. She has COPD, O2 use with exertion 3 L/min and none at rest, RAISSA, lung cancer. She was in the office 02/26/24, she was stable and agreed to have sleep testing. She presented to the ER on Apr 01 with 2 days of coughing with green sputum with increased shortness of breath. She also had 3 days of pain below her eyes. This is new. She had a slightly sore throat with raspy voice, no GI symptoms. She has had no sick contacts, has not been out of the house. During the holidays, she avoided family to keep from getting sick. Her saturation at home was lower than usual, 88% on room air. She started using O2 at 3 L/minute, saturation increased to 95%. ABGs showed respiratory acidosis April 02, improved by the third ABG. PCR was negative for influenza A, B, RSV and COVID. CTA 04/01/24 = IMPRESSION: Evaluation of the subsegmental pulmonary arteries limited by motion artifact. No CT evidence of central or segmental acute pulmonary embolus. No acute process detected in the chest. Stable left upper lobe mass. Subcarinal lymphadenopathy Her WBC has increased since admission, 8.7 now 15.5. She has not had leg swelling, chest pain or abdominal pain. No fevers. She denied being around any sick contacts. DATA * 04/01/24 CTA = no PE, stable RAF mass. * 04/02/24 : Sodium 134, potassium 4.4, chloride 101, carbon dioxide 32, BUN 15, creatinine 0.6, estimated GFR greater than 60, glucose 102, lactate acid 1.2, AST 23, ALT 14, alkaline phosphatase 177, protein 8.0, albumin 4.1, PCR swabs negative for influenza A/B, RSV, SARS-CoV-2 * ABG Review of Systems 2 Review of Systems: All systems reviewed & are unremarkable except as noted in HPI and below PMFSH Past Medical History Medical History (Updated 04/03/24 @ 21:41 by Kelin Hassan MD) Hypertension Right hand dominant COPD (chronic obstructive pulmonary disease) RAISSA (obstructive sleep apnea) Screening for hyperlipidemia Nodule of left lung Major depressive disorder, recurrent, unspecified Essential hypertension Asthma with COPD (chronic obstructive pulmonary disease) Anxiety disorder, unspecified Family History Family History (Updated 04/01/24 @ 21:06 by Tarsha Griggs RN) Mother Diabetes mellitus Heart attack Hypertension Father Heart attack Hypertension Smoker Social History Social History Smoking packs per day: 1 Smoking cigarettes per day: 20.0 Years smoked: 40 Smoking pack-years: 40.00 Smoking status: Former smoker Tobacco type: cigarettes Smoking end date: 12/31/23 Alcohol intake: never Substance use: never Substance use type: does not use Do You Feel Safe in your Home?: Yes Lack of Transportation: No Lack of Food: Never True Current Housing: I Have Housing Concerned About Future Housing: No Difficulty Paying Gas/Electric Bills: No Difficulty Paying for Meds: No Currently Unemployed: No Education: High School Diploma/GED Difficulty w/ Childcare or Family Care: No Spiritual care concerns: No Meds Home Medications and Allergies Home Medications ?Medication ?Instructions ?Recorded ?Confirmed ?Type albuterol sulfate 90 mcg/actuation 2 inhalation inhalation Q4H #8.5 02/17/19 04/01/24 Rx aerosol inhaler (ProAir HFA) grams budesonide-formoterol HFA 160 2 puff inhalation BID 09/08/19 04/01/24 History mcg-4.5 mcg/actuation aerosol inhaler (Symbicort) losartan 100 mg tablet 100 mg PO DAILY 06/13/22 04/01/24 History metoprolol tartrate 50 mg tablet 50 mg PO BID 06/13/22 04/01/24 History nortriptyline 50 mg capsule 50 mg PO DAILY 06/13/22 04/01/24 History semaglutide 0.25 mg or 0.5 mg (2 1 mg subcut WEEKLY 10/15/23 04/01/24 History mg/3 mL) subcutaneous pen injector (Ozempic) tiotropium bromide 2.5 2 puff inhalation DAILY 1 month #4 11/15/23 04/01/24 Rx mcg/actuation mist for inhalation grams (Spiriva Respimat) omeprazole magnesium 20 mg 20 mg PO DAILY heart burn 12/17/23 04/01/24 History capsule,delayed release (Acid [employer] (omeprazole)) ipratropium 0.5 mg-albuterol 3 mg 3 ml inhalation Q6HRT PRN SOB, 12/20/23 04/01/24 Rx (2.5 mg base)/3 mL nebulization wheezing #180 mL soln nicotine 21 mg/24 hr daily 1 patch transdermal DAILY #30 ea 12/20/23 04/01/24 Rx transdermal patch buspirone 5 mg tablet 5 mg PO BID 1 month #60 tabs 01/01/24 04/01/24 Rx Allergies Allergy/AdvReac Type Severity Reaction Status Date / Time sertraline Allergy Intermediate Itching Verified 01/06/24 09:24 Sulfa (Sulfonamide Allergy Unknown Unknown Verified 01/06/24 09:24 Antibiotics) Vital Signs Vital Signs - 24 hr 04/02/24 18:00 04/02/24 19:45 04/02/24 20:00 Temperature Pulse Rate 105 H 102 H Respiratory Rate 34 H Blood Pressure Pulse Oximetry 78 L 91 Oxygen Delivery Nasal Cannula Oxygen Flow Rate 3 Fraction of Inspired Oxygen 04/02/24 20:00 04/02/24 20:00 04/02/24 20:15 Temperature Pulse Rate 102 H 102 H 106 H Respiratory Rate 29 H 20 Blood Pressure Pulse Oximetry 95 Oxygen Delivery Oxygen Flow Rate Fraction of Inspired Oxygen 04/02/24 20:15 04/02/24 20:30 04/02/24 20:37 Temperature 36.6 C Pulse Rate 106 H 104 H 104 H Respiratory Rate 19 19 23 H Blood Pressure 135/113 H Pulse Oximetry 74 L 89 L 91 Oxygen Delivery Oxygen Flow Rate Fraction of Inspired Oxygen 04/02/24 20:37 04/02/24 20:40 04/02/24 20:45 Temperature Pulse Rate 107 H 106 H 107 H Respiratory Rate 23 H 15 Blood Pressure 135/113 H Pulse Oximetry 92 89 L Oxygen Delivery Oxygen Flow Rate Fraction of Inspired Oxygen 04/02/24 21:00 04/02/24 21:15 04/02/24 21:30 Temperature Pulse Rate 107 H 107 H 104 H Respiratory Rate 22 H 29 H 22 H Blood Pressure Pulse Oximetry 91 90 90 Oxygen Delivery Oxygen Flow Rate Fraction of Inspired Oxygen 04/02/24 21:45 04/02/24 22:00 04/02/24 22:00 Temperature Pulse Rate 100 95 113 H Respiratory Rate 22 H 22 H Blood Pressure Pulse Oximetry 92 95 Oxygen Delivery Oxygen Flow Rate Fraction of Inspired Oxygen 04/02/24 22:15 04/02/24 22:30 04/02/24 22:45 Temperature Pulse Rate 90 90 89 Respiratory Rate 20 23 H 26 H Blood Pressure Pulse Oximetry 93 94 94 Oxygen Delivery Oxygen Flow Rate Fraction of Inspired Oxygen 04/02/24 23:00 04/02/24 23:00 04/02/24 23:15 Temperature Pulse Rate 88 94 91 Respiratory Rate 22 H 15 24 H Blood Pressure Pulse Oximetry 91 87 L 91 Oxygen Delivery BiPAP Oxygen Flow Rate Fraction of Inspired Oxygen 04/02/24 23:30 04/02/24 23:40 04/02/24 23:41 Temperature 36.5 C Pulse Rate 92 96 94 Respiratory Rate 22 H 28 H 28 H Blood Pressure 126/99 H 126/99 H Pulse Oximetry 91 90 89 L Oxygen Delivery Oxygen Flow Rate Fraction of Inspired Oxygen 04/02/24 23:45 04/03/24 00:00 04/03/24 00:00 Temperature Pulse Rate 94 88 Respiratory Rate 22 H Blood Pressure Pulse Oximetry 88 L 90 Oxygen Delivery BiPAP Oxygen Flow Rate Fraction of Inspired Oxygen 30 04/03/24 00:00 04/03/24 00:15 04/03/24 01:04 Temperature Pulse Rate 89 89 85 Respiratory Rate 24 H 20 23 H Blood Pressure Pulse Oximetry 92 91 91 Oxygen Delivery Oxygen Flow Rate Fraction of Inspired Oxygen 04/03/24 01:25 04/03/24 01:30 04/03/24 01:45 Temperature Pulse Rate 85 84 83 Respiratory Rate 17 18 20 Blood Pressure Pulse Oximetry 92 91 91 Oxygen Delivery Oxygen Flow Rate Fraction of Inspired Oxygen 04/03/24 02:00 04/03/24 02:00 04/03/24 02:15 Temperature Pulse Rate 85 85 84 Respiratory Rate 22 H 24 H Blood Pressure Pulse Oximetry 92 90 Oxygen Delivery Oxygen Flow Rate Fraction of Inspired Oxygen 04/03/24 02:30 04/03/24 02:45 04/03/24 03:00 Temperature Pulse Rate 84 94 91 Respiratory Rate 17 24 H 22 H Blood Pressure Pulse Oximetry 90 90 88 L Oxygen Delivery Oxygen Flow Rate Fraction of Inspired Oxygen 04/03/24 03:15 04/03/24 03:30 04/03/24 03:45 Temperature Pulse Rate 88 85 87 Respiratory Rate 21 H 21 H 22 H Blood Pressure Pulse Oximetry 88 L 94 91 Oxygen Delivery Oxygen Flow Rate Fraction of Inspired Oxygen 04/03/24 04:00 04/03/24 04:00 04/03/24 04:00 Temperature 36.5 C Pulse Rate 100 90 Respiratory Rate 23 H Blood Pressure 128/84 Pulse Oximetry 90 90 Oxygen Delivery Nasal Cannula Oxygen Flow Rate 3 Fraction of Inspired Oxygen 04/03/24 04:00 04/03/24 04:15 04/03/24 04:30 Temperature Pulse Rate 90 87 85 Respiratory Rate 17 22 H 22 H Blood Pressure Pulse Oximetry 94 90 92 Oxygen Delivery Oxygen Flow Rate Fraction of Inspired Oxygen 04/03/24 04:45 04/03/24 04:54 04/03/24 05:00 Temperature Pulse Rate 101 H 95 96 Respiratory Rate 31 H 22 H 18 Blood Pressure 128/84 Pulse Oximetry 89 L 87 L 86 L Oxygen Delivery Oxygen Flow Rate Fraction of Inspired Oxygen 04/03/24 05:15 04/03/24 05:30 04/03/24 05:45 Temperature Pulse Rate 92 91 89 Respiratory Rate 24 H 25 H 19 Blood Pressure Pulse Oximetry 89 L 93 91 Oxygen Delivery Oxygen Flow Rate Fraction of Inspired Oxygen 04/03/24 06:00 04/03/24 06:00 04/03/24 06:15 Temperature Pulse Rate 87 87 88 Respiratory Rate 21 H 17 Blood Pressure Pulse Oximetry 90 91 Oxygen Delivery Oxygen Flow Rate Fraction of Inspired Oxygen 04/03/24 06:30 04/03/24 06:45 04/03/24 07:00 Temperature Pulse Rate 90 88 88 Respiratory Rate 22 H 21 H 22 H Blood Pressure Pulse Oximetry 93 94 92 Oxygen Delivery Oxygen Flow Rate Fraction of Inspired Oxygen 04/03/24 07:15 04/03/24 07:30 04/03/24 07:45 Temperature Pulse Rate 84 86 84 Respiratory Rate 22 H 19 19 Blood Pressure Pulse Oximetry 93 95 94 Oxygen Delivery Oxygen Flow Rate Fraction of Inspired Oxygen 04/03/24 08:00 04/03/24 08:00 04/03/24 08:28 Temperature Pulse Rate 102 H 100 Respiratory Rate 24 H Blood Pressure Pulse Oximetry 93 Oxygen Delivery Nasal Cannula Oxygen Flow Rate 5 Fraction of Inspired Oxygen 04/03/24 08:28 04/03/24 08:43 04/03/24 08:48 Temperature Pulse Rate 101 H 106 H Respiratory Rate 24 H Blood Pressure Pulse Oximetry 96 Oxygen Delivery Nasal Cannula Oxygen Flow Rate 3 Fraction of Inspired Oxygen 04/03/24 10:00 04/03/24 12:00 04/03/24 12:00 Temperature 36.8 C Pulse Rate 108 H 90 94 Respiratory Rate 24 H Blood Pressure 127/79 Pulse Oximetry 93 Oxygen Delivery Oxygen Flow Rate Fraction of Inspired Oxygen 04/03/24 12:00 04/03/24 14:00 04/03/24 14:17 Temperature Pulse Rate 103 H 95 Respiratory Rate 24 H Blood Pressure Pulse Oximetry 93 Oxygen Delivery Nasal Cannula Oxygen Flow Rate 5 Fraction of Inspired Oxygen 04/03/24 14:18 04/03/24 14:31 04/03/24 16:00 Temperature Pulse Rate 95 Respiratory Rate 24 H Blood Pressure Pulse Oximetry 96 93 Oxygen Delivery Nasal Cannula Nasal Cannula Oxygen Flow Rate 5 5 Fraction of Inspired Oxygen 04/03/24 16:00 04/03/24 16:00 Temperature 36.8 C Pulse Rate 101 H 99 Respiratory Rate 25 H Blood Pressure 121/84 Pulse Oximetry 92 Oxygen Delivery Oxygen Flow Rate Fraction of Inspired Oxygen Exam 2 Narrative: GEN: Alert, oriented, not in distress. She is wearing nasal cannula O2 at 5 L, sat 95%. She is sitting on the side of the bed, not in distress. HEENT: pupils are equal, EOMI, symmetrical face; oral membranes partially moist. Mallampati IV airway. I cannot see anything beyong the base of tongue. No mucosal lesions. NECK: Trachea is midline CHEST: Equal air entry, symmetric excursion, decreased breath sounds with soft expiratory wheezes. no crackles. CV: Distant regular S1S2 no m/g/r ABD : (+) bowel sounds Extremities : no clubbing, cyanosis, or edema. Bruising on dorsal surfaces of her hands. Hands are discolored purple, yet warm to touch. PSYCH: normal thought, voice is slightly raspy. Gait is not tested. Results Laboratory Findings 04/03/24 04:06 04/03/24 04:06 ABG, PT/INR, D-dimer: ABG ABG pH 7.350 (7.350-7.450) 04/02/24 12:37 ABG pCO2 52.5 mmHg (35.0-45.0) H 04/02/24 12:37 ABG pO2 59.4 mmHg (80.0-100.0) L 04/02/24 12:37 ABG O2 Saturation 89.2 % (95.0-100.0) L 04/02/24 12:37 Abnormal lab findings: Abnormal Labs 04/01/24 04/02/24 04/02/24 13:25 04:48 06:52 WBC 10.1 H Hgb 16.4 H 15.5 H Hct 49.1 H 48.3 H RDW 14.6 H Neut % (Auto) 80.6 H 92.2 H Lymph % (Auto) 12.5 L 6.5 L [place] % (Auto) 0.9 L Baso % (Auto) 0.1 L Lymph # (Auto) 0.65 L Abs Immat Gran (auto) Absolute Neuts (auto) 7.0 H 9.3 H ABG pH 7.268 L* ABG pCO2 54.9 H ABG pO2 75.9 L ABG HCO3 ABG O2 Saturation 93.2 L Oxyhemoglobin Sodium 134 L 133 L Potassium 5.2 H Carbon Dioxide 32 H 32 H Anion Gap 1 L 0 L BUN Creatinine 0.60 L Glucose 141 H Magnesium 2.6 H Alkaline Phosphatase 177 H 164 H 04/02/24 04/02/24 04/03/24 09:19 12:37 04:06 WBC 15.5 H Hgb Hct RDW Neut % (Auto) 89.8 H Lymph % (Auto) 7.1 L [place] % (Auto) 2.4 L Baso % (Auto) 0.1 L Lymph # (Auto) Abs Immat Gran (auto) 0.07 H Absolute Neuts (auto) 14.0 H ABG pH 7.300 L ABG pCO2 54.9 H 52.5 H ABG pO2 55.5 L 59.4 L ABG HCO3 26.4 H 28.3 H ABG O2 Saturation 85.3 L* 89.2 L Oxyhemoglobin 88.1 L Sodium 132 L Potassium Carbon Dioxide 33 H Anion Gap 1 L BUN 23 H Creatinine Glucose 135 H Magnesium 2.4 H Alkaline Phosphatase 150 H
--- NOTE | 2024-04-03 18:20 | PM.IMPN ---
Progress Note: A&P Assessment and Plan (1) COPD exacerbation: Code(s): J44.1 - Chronic obstructive pulmonary disease with (acute) exacerbation Status: Acute Assessment and Plan: -Dyspnea on exertion with wheezing/tachypnea -Nebs, Steroids, IV magnesium -Wheezing improved after IV magnesium -Consult Pulmonology Continue steroid Influenza RSV COVID negative Chest x-ray with no acute cardiopulmonary process CTA negative for PE central or segmental. Acute process. Stable left upper lobe mass with subcarinal lymphadenopathy (2) Lung cancer: Qualifiers: Laterality: left Lung location: upper lobe of lung Qualified Code(s): C34.12 - Malignant neoplasm of upper lobe, left bronchus or lung Code(s): C34.90 - Malignant neoplasm of unspecified part of unspecified bronchus or lung Status: Acute Assessment and Plan: See 1 (3) Respiratory acidosis: Code(s): E87.29 - Other acidosis Status: Acute Assessment and Plan: -Uncompensated respiratory acidosis -Normal lactic acid -May require BiPap if no improvement during waking hours Will recheck ABG (4) Hypertension: Code(s): I10 - Essential (primary) hypertension Status: Acute Assessment and Plan: -Blood pressure reviewed and stable -Continue home medications Plan DVT prophylaxis Lovenox Subjective Date/time seen: 04/03/24 18:20 Interval history: I was notified around 5.30 p.m. to evaluate the patient . Upon evaluation patient reports recently she was diagnosed with lung cancer. Patient follows with and as OP. Patient is a chronic smoker and quit smoking after the diagnosis of cancer. Patient use home oxygen only during activity. Review of Systems Review of Systems: All systems reviewed & are unremarkable except as noted in HPI and below Exam Narrative: GENERAL: Chronically ill-appearing, obese under acute distress HEAD: Normocephalic, atraumatic. ENT: Mucous membranes moist. NECK: Supple. CHEST: Bilateral faint wheezing and expiratory no respiratory distress HEART: regular rate and rhythm. Normal peripheral pulses. ABDOMEN: Soft, nontender, nondistended, normal active bowel sounds. EXTREMITIES: Normal range of motion. No edema. Purplish discoloration of feet and hands, warm to touch with good pulses, patient reports chronic discoloration SKIN: Warm, dry, no rash. NEURO: Alert and oriented x3. Moves all extremities well Objective Data Vital Signs Vital Signs: Vital Signs - 24 hr 04/02/24 19:45 04/02/24 20:00 04/02/24 20:00 Temperature Pulse Rate 102 H 102 H Respiratory Rate 34 H Blood Pressure Pulse Oximetry 78 L 91 Oxygen Delivery Nasal Cannula Oxygen Flow Rate 3 Fraction of Inspired Oxygen 04/02/24 20:00 04/02/24 20:15 04/02/24 20:15 Temperature Pulse Rate 102 H 106 H 106 H Respiratory Rate 29 H 20 19 Blood Pressure Pulse Oximetry 95 74 L Oxygen Delivery Oxygen Flow Rate Fraction of Inspired Oxygen 04/02/24 20:30 04/02/24 20:37 04/02/24 20:37 Temperature 97.9 F Pulse Rate 104 H 104 H 107 H Respiratory Rate 19 23 H 23 H Blood Pressure 135/113 H 135/113 H Pulse Oximetry 89 L 91 92 Oxygen Delivery Oxygen Flow Rate Fraction of Inspired Oxygen 04/02/24 20:40 04/02/24 20:45 04/02/24 21:00 Temperature Pulse Rate 106 H 107 H 107 H Respiratory Rate 15 22 H Blood Pressure Pulse Oximetry 89 L 91 Oxygen Delivery Oxygen Flow Rate Fraction of Inspired Oxygen 04/02/24 21:15 04/02/24 21:30 04/02/24 21:45 Temperature Pulse Rate 107 H 104 H 100 Respiratory Rate 29 H 22 H 22 H Blood Pressure Pulse Oximetry 90 90 92 Oxygen Delivery Oxygen Flow Rate Fraction of Inspired Oxygen 04/02/24 22:00 04/02/24 22:00 04/02/24 22:15 Temperature Pulse Rate 95 113 H 90 Respiratory Rate 22 H 20 Blood Pressure Pulse Oximetry 95 93 Oxygen Delivery Oxygen Flow Rate Fraction of Inspired Oxygen 04/02/24 22:30 04/02/24 22:45 04/02/24 23:00 Temperature Pulse Rate 90 89 88 Respiratory Rate 23 H 26 H 22 H Blood Pressure Pulse Oximetry 94 94 91 Oxygen Delivery BiPAP Oxygen Flow Rate Fraction of Inspired Oxygen 04/02/24 23:00 04/02/24 23:15 04/02/24 23:30 Temperature Pulse Rate 94 91 92 Respiratory Rate 15 24 H 22 H Blood Pressure Pulse Oximetry 87 L 91 91 Oxygen Delivery Oxygen Flow Rate Fraction of Inspired Oxygen 04/02/24 23:40 04/02/24 23:41 04/02/24 23:45 Temperature 97.7 F Pulse Rate 96 94 94 Respiratory Rate 28 H 28 H 22 H Blood Pressure 126/99 H 126/99 H Pulse Oximetry 90 89 L 88 L Oxygen Delivery Oxygen Flow Rate Fraction of Inspired Oxygen 04/03/24 00:00 04/03/24 00:00 04/03/24 00:00 Temperature Pulse Rate 88 89 Respiratory Rate 24 H Blood Pressure Pulse Oximetry 90 92 Oxygen Delivery BiPAP Oxygen Flow Rate Fraction of Inspired Oxygen 30 04/03/24 00:15 04/03/24 01:04 04/03/24 01:25 Temperature Pulse Rate 89 85 85 Respiratory Rate 20 23 H 17 Blood Pressure Pulse Oximetry 91 91 92 Oxygen Delivery Oxygen Flow Rate Fraction of Inspired Oxygen 04/03/24 01:30 04/03/24 01:45 04/03/24 02:00 Temperature Pulse Rate 84 83 85 Respiratory Rate 18 20 Blood Pressure Pulse Oximetry 91 91 Oxygen Delivery Oxygen Flow Rate Fraction of Inspired Oxygen 04/03/24 02:00 04/03/24 02:15 04/03/24 02:30 Temperature Pulse Rate 85 84 84 Respiratory Rate 22 H 24 H 17 Blood Pressure Pulse Oximetry 92 90 90 Oxygen Delivery Oxygen Flow Rate Fraction of Inspired Oxygen 04/03/24 02:45 04/03/24 03:00 04/03/24 03:15 Temperature Pulse Rate 94 91 88 Respiratory Rate 24 H 22 H 21 H Blood Pressure Pulse Oximetry 90 88 L 88 L Oxygen Delivery Oxygen Flow Rate Fraction of Inspired Oxygen 04/03/24 03:30 04/03/24 03:45 04/03/24 04:00 Temperature 97.7 F Pulse Rate 85 87 100 Respiratory Rate 21 H 22 H 23 H Blood Pressure 128/84 Pulse Oximetry 94 91 90 Oxygen Delivery Oxygen Flow Rate Fraction of Inspired Oxygen 04/03/24 04:00 04/03/24 04:00 04/03/24 04:00 Temperature Pulse Rate 90 90 Respiratory Rate 17 Blood Pressure Pulse Oximetry 90 94 Oxygen Delivery Nasal Cannula Oxygen Flow Rate 3 Fraction of Inspired Oxygen 04/03/24 04:15 04/03/24 04:30 04/03/24 04:45 Temperature Pulse Rate 87 85 101 H Respiratory Rate 22 H 22 H 31 H Blood Pressure Pulse Oximetry 90 92 89 L Oxygen Delivery Oxygen Flow Rate Fraction of Inspired Oxygen 04/03/24 04:54 04/03/24 05:00 04/03/24 05:15 Temperature Pulse Rate 95 96 92 Respiratory Rate 22 H 18 24 H Blood Pressure 128/84 Pulse Oximetry 87 L 86 L 89 L Oxygen Delivery Oxygen Flow Rate Fraction of Inspired Oxygen 04/03/24 05:30 04/03/24 05:45 04/03/24 06:00 Temperature Pulse Rate 91 89 87 Respiratory Rate 25 H 19 Blood Pressure Pulse Oximetry 93 91 Oxygen Delivery Oxygen Flow Rate Fraction of Inspired Oxygen 04/03/24 06:00 04/03/24 06:15 04/03/24 06:30 Temperature Pulse Rate 87 88 90 Respiratory Rate 21 H 17 22 H Blood Pressure Pulse Oximetry 90 91 93 Oxygen Delivery Oxygen Flow Rate Fraction of Inspired Oxygen 04/03/24 06:45 04/03/24 07:00 04/03/24 07:15 Temperature Pulse Rate 88 88 84 Respiratory Rate 21 H 22 H 22 H Blood Pressure Pulse Oximetry 94 92 93 Oxygen Delivery Oxygen Flow Rate Fraction of Inspired Oxygen 04/03/24 07:30 04/03/24 07:45 04/03/24 08:00 Temperature Pulse Rate 86 84 Respiratory Rate 19 19 Blood Pressure Pulse Oximetry 95 94 93 Oxygen Delivery Nasal Cannula Oxygen Flow Rate 5 Fraction of Inspired Oxygen 04/03/24 08:00 04/03/24 08:28 04/03/24 08:28 Temperature Pulse Rate 102 H 100 Respiratory Rate 24 H Blood Pressure Pulse Oximetry 96 Oxygen Delivery Nasal Cannula Oxygen Flow Rate 3 Fraction of Inspired Oxygen 04/03/24 08:43 04/03/24 08:48 04/03/24 10:00 Temperature Pulse Rate 101 H 106 H 108 H Respiratory Rate 24 H Blood Pressure Pulse Oximetry Oxygen Delivery Oxygen Flow Rate Fraction of Inspired Oxygen 04/03/24 12:00 04/03/24 12:00 04/03/24 12:00 Temperature 98.2 F Pulse Rate 90 94 Respiratory Rate 24 H Blood Pressure 127/79 Pulse Oximetry 93 93 Oxygen Delivery Nasal Cannula Oxygen Flow Rate 5 Fraction of Inspired Oxygen 04/03/24 14:00 04/03/24 14:17 04/03/24 14:18 Temperature Pulse Rate 103 H 95 Respiratory Rate 24 H Blood Pressure Pulse Oximetry 96 Oxygen Delivery Nasal Cannula Oxygen Flow Rate 5 Fraction of Inspired Oxygen 04/03/24 14:31 04/03/24 16:00 04/03/24 16:00 Temperature Pulse Rate 95 101 H Respiratory Rate 24 H Blood Pressure Pulse Oximetry 93 Oxygen Delivery Nasal Cannula Oxygen Flow Rate 5 Fraction of Inspired Oxygen 04/03/24 16:00 Temperature 98.2 F Pulse Rate 99 Respiratory Rate 25 H Blood Pressure 121/84 Pulse Oximetry 92 Oxygen Delivery Oxygen Flow Rate Fraction of Inspired Oxygen Intake/Output Intake/Output: Intake & Output 03/31/24 04/01/24 04/02/24 04/03/24 23:59 23:59 23:59 23:59 Intake Total 500 1280 1530 Output Total 800 800 Balance 500 480 730 Meds/Results Medications: Active Medications Generic Name Dose Route Start Last Admin Trade Name Freq PRN Reason Stop Dose Admin Acetaminophen 650 mg 04/01/24 17:35 04/02/24 17:11 Acetaminophen 325 Mg Tablet PO 650 mg Q4H PRN Administration Mild Pain (1-3) or Fever Hydrocodone Bitart/Acetaminophen 1 tab 04/01/24 17:35 04/03/24 15:43 Hydrocodone/Acetaminophen (*Crx) 5-325 Mg Tablet PO 1 tab Q4H PRN Administration Pain Rated 4-6 Albuterol 2 puff 04/02/24 01:33 Albuterol Sulfate (*Sp) Aerosol 1 Puff INHALATION Q4HRT PRN wheezing Buspirone HCl 5 mg 04/02/24 09:00 04/03/24 17:41 Buspirone Hcl 5 Mg Tablet PO 5 mg BID ARGELIA Administration Enoxaparin Sodium 40 mg 04/02/24 09:00 04/03/24 08:47 Enoxaparin 40 Mg/0.4 Ml Syringe SUB-Q 40 mg DAILY ARGELIA Administration Levalbuterol HCl 0.63 mg 04/01/24 20:00 04/03/24 14:17 Levalbuterol Neb 1.25 Mg/3 Ml INHALATION 0.63 mg Q6HRT ARGELIA Administration Levofloxacin 500 mg 04/02/24 09:00 04/03/24 08:47 Levofloxacin 500 Mg Tablet PO 500 mg DAILY ARGELIA Administration Losartan Potassium 100 mg 04/02/24 09:00 04/03/24 08:47 Losartan Potassium 100 Mg Tablet PO 100 mg DAILY ARGELIA Administration Methylprednisolone Sodium Succinate 60 mg 04/01/24 21:00 04/03/24 17:41 Methylprednisolone Sod Succ 125 Mg Vial IV PUSH 60 mg Q6HR ARGELIA Administration Metoprolol Tartrate 50 mg 04/02/24 02:00 04/03/24 08:48 Metoprolol Tartrate 50 Mg Tab PO 50 mg Q12HR ARGELIA Administration Nicotine 1 patch 04/02/24 09:00 04/03/24 08:48 Nicotine (*Pbkc) 21 Mg Patch TRANSDERM 1 patch DAILY ARGELIA Administration Nortriptyline HCl 50 mg 04/02/24 09:00 04/03/24 08:48 Nortriptyline Hcl 25 Mg Capsule PO 50 mg DAILY ARGELIA Administration Ondansetron HCl 4 mg 04/01/24 17:35 Ondansetron Inj 4 Mg/2 Ml Vial IV PUSH Q4H PRN Nausea Pantoprazole Sodium 40 mg 04/02/24 09:00 04/03/24 08:48 Pantoprazole 40 Mg Tablet PO 40 mg QAM ARGELIA Administration Fluticasone/Salmeterol 2 puff 04/02/24 08:00 04/03/24 08:28 Fluticasone/Salmeterol 115-21 Mcg Inhaler 1 Puff INHALATION 2 puff Q12HRT ARGELIA Administration Umeclidinium [place] 1 puff 04/02/24 08:00 04/03/24 08:28 Umeclidinium [place] 62.5 Mcg Ellipta INHALATION 1 puff DAILYRT ARGELIA Administration Radiology Results: ITS Impressions Chest X-Ray 04/01/24 14:02 IMPRESSION: No acute cardiopulmonary process. Chest CTA 04/01/24 16:36 IMPRESSION: Evaluation of the subsegmental pulmonary arteries limited by motion artifact. No CT evidence of central or segmental acute pulmonary embolus. No acute process detected in the chest. Stable left upper lobe mass. Subcarinal lymphadenopathy. Labs Labs: Laboratory Results - last 24 hr 04/03/24 04:06 WBC 15.5 H RBC 4.79 Hgb 14.7 Hct 44.6 MCV 93.1 MCH 30.7 MCHC 33.0 RDW 14.3 Plt Count 280 MPV 9.3 Immature Gran % (Auto) 0.5 Neut % (Auto) 89.8 H Lymph % (Auto) 7.1 L [place] % (Auto) 2.4 L Eos % (Auto) 0.1 Baso % (Auto) 0.1 L Lymph # (Auto) 1.10 [place] # (Auto) 0.4 Eos # (Auto) 0.0 Baso # (Auto) 0.0 Abs Immat Gran (auto) 0.07 H Absolute Neuts (auto) 14.0 H Absolute Nucleated RBC 0.000 Nucleated RBC % 0.0 Sodium 132 L Potassium 5.0 Chloride 98 Carbon Dioxide 33 H Anion Gap 1 L BUN 23 H Creatinine 0.80 Estim Creat Clear Calc 66 Estimated GFR > 60 Glucose 135 H Calcium 9.7 Magnesium 2.4 H Total Bilirubin 0.4 AST 16 ALT 14 Alkaline Phosphatase 150 H Total Protein 7.0 Albumin 4.0 Quality VTE Prophylaxis VTE prophylaxis: pharmacologic ordered Hospitalist [facility] Advance Care Plan I have confirmed that the patient's Advanced Care Plan is present, code status is documented, or surrogate decision maker is listed in patient medical record.: Yes Medication Reconciliation I have utilized all available resources to obtain, update and review the patients current medications (includes all prescriptions, OTC, herbals, cannabis, and nutritional supplements).: Yes
[2024-04-04] VITALS (20 sets, daily range): BP systolic 104–145; BP diastolic 73–97; PULSE 75–113; RESP 18–26; TEMP 36.4–36.6; O2SAT 92–98
[2024-04-04] MEDS: methylPREDNISolone SOD SUCC 125 MG VIAL 60 MG IV PUSH ×2 (00:10→06:11)
[2024-04-04] MEDS: LEVALBUTEROL NEB 1.25 MG/3 ML 0.63 MG INHALATION ×2 (03:11→08:19)
[2024-04-04 05:17] LABS: Basophils Percent Auto 0.1 % (0.2-1.2); Eosinophils Absolute Auto 0.1 K/mm3 (0-0.3); Eosinophils Percent Auto 0.4 % (0-4.4); Immature Granulocyte Absolute 0.05 K/mm3 (0.00-0.031); Immature Granulocyte Percent A 0.4 % (0-0.5); Lymphocytes Absolute Auto 1.08 K/mm3 (0.9-3.2); Lymphocytes Percent Auto 8.9 % (18.3-44.2); Mean Corpuscular HGB Conc 32.6 g/dl (32-36); Mean Corpuscular Hemoglobin 30.4 pg (26-34); Mean Corpuscular Volume 93.3 fl (80-100); Mean Platelet Volume 9.1 fl (7.4-10.4); Monocytes Absolute Auto 0.4 K/mm3 (0.1-0.6); Monocytes Percent Auto 2.9 % (2.6-8.5); Neutrophils Absolute Auto 10.6 K/mm3 (1.3-6.7); Neutrophils Percent Auto 87.3 % (45.5-73.1); Platelet Count Result 301 k/mm3 (150-375); Red Blood Count 4.93 M/mm3 (4.2-5.4); White Blood Count 12.2 K/mm3 (4.5-10.0)
[2024-04-04 05:30] LABS: Alanine Aminotransferase 13 U/L (6-35); Albumin Level 3.8 g/dL (3.5-5.1); Alkaline Phosphatase 128 U/L (38-126); Anion Gap 0 mmol/L (4-12); Aspartate Amino Transferase 17 U/L (14-36); Bilirubin,Total 0.4 mg/dL (0.2-1.3); Blood Urea Nitrogen 28 mg/dL (7-17); Calcium 9.8 mg/dL (8.4-10.2); Carbon Dioxide 38 mmol/L (22-30); Chloride 95 mmol/L (98-107); Estimated CRCL calculation 75 ml/min; Estimated Glomerular Filt Rate > 60; Glucose 129 mg/dL (65-110); Magnesium 2.4 mg/dL (1.6-2.3); Potassium 5.1 mmol/L (3.4-5.0); Sodium 133 mmol/L (137-145)
[2024-04-04] MEDS: FLUTICASONE/SALMETEROL 115-21 MCG INHALER 1 PUFF 2 PUFF INHALATION ×2 (08:21→21:24)
[2024-04-04] MEDS: NORTRIPTYLINE HCL 25 MG CAPSULE 50 MG PO (08:36)
[2024-04-04] MEDS: METOPROLOL TARTRATE 50 MG TAB PO ×2 (08:36→21:22)
[2024-04-04] MEDS: PANTOPRAZOLE 40 MG TABLET PO (08:36)
[2024-04-04] MEDS: NICOTINE (*PBKC) 21 MG PATCH 1 PATCH TRANSDERM (08:36)
[2024-04-04] MEDS: levoFLOXacin 500 MG TABLET PO (08:36)
[2024-04-04] MEDS: LOSARTAN POTASSIUM 100 MG TABLET PO (08:36)
[2024-04-04] MEDS: ENOXAPARIN 40 MG/0.4 ML SYRINGE SUB-Q (08:37)
[2024-04-04] MEDS: busPIRone HCL 5 MG TABLET PO ×2 (08:37→17:17)
--- NOTE | 2024-04-04 09:27 | P.PNIM_ITS ---
Progress Note: A&P Assessment and Plan (1) COPD exacerbation: Code(s): J44.1 - Chronic obstructive pulmonary disease with (acute) exacerbation Status: Acute Assessment and Plan: -on Advair, Incruse -Dyspnea on exertion with wheezing/tachypnea -Nebs, Steroids, IV magnesium -Wheezing improved after IV magnesium -Consult Pulmonology -Continue steroid -Influenza RSV COVID negative -respiratory pathogen panel -Chest x-ray with no acute cardiopulmonary process -CTA negative for PE central or segmental. Acute process. Stable left upper lobe mass with subcarinal lymphadenopathy (2) Lung cancer: Qualifiers: Laterality: left Lung location: upper lobe of lung Qualified Code(s): C34.12 - Malignant neoplasm of upper lobe, left bronchus or lung Code(s): C34.90 - Malignant neoplasm of unspecified part of unspecified bronchus or lung Status: Acute Assessment and Plan: See 1 (3) Respiratory acidosis: Code(s): E87.29 - Other acidosis Status: Acute Assessment and Plan: -Uncompensated respiratory acidosis -Normal lactic acid -unable to tolerate BiPAP (4) Hypertension: Code(s): I10 - Essential (primary) hypertension Status: Acute Assessment and Plan: -Blood pressure reviewed and stable -Continue home medications Plan DVT prophylaxis Lovenox Subjective Date/time seen: 04/04/24 09:27 Interval history: Patient is not able to tolerate BiPAP. Discussed with pulmonology. Currently resting well. Commercial [employer] decreased Solu-Medrol 60 q.6 hours to 20 q.6 hours. He also discontinued nebulizer and placed her on Advair q.12 hours and Incruse 1 puff a day. Patient will continue Levaquin. Review of Systems Review of Systems: All systems reviewed & are unremarkable except as noted in HPI and below Exam Narrative: GENERAL: Chronically ill-appearing, obese under acute distress HEAD: Normocephalic, atraumatic. ENT: Mucous membranes moist. NECK: Supple. CHEST: Bilateral faint wheezing and expiratory no respiratory distress HEART: regular rate and rhythm. Normal peripheral pulses. ABDOMEN: Soft, nontender, nondistended, normal active bowel sounds. EXTREMITIES: Normal range of motion. No edema. Purplish discoloration of feet and hands, warm to touch with good pulses, patient reports chronic discoloration SKIN: Warm, dry, no rash. NEURO: Alert and oriented x3. Moves all extremities well Objective Data Vital Signs Vital Signs: Vital Signs - 24 hr 04/03/24 10:00 04/03/24 12:00 04/03/24 12:00 Temperature 98.2 F Pulse Rate 108 H 90 94 Respiratory Rate 24 H Blood Pressure 127/79 Pulse Oximetry 93 Oxygen Delivery Oxygen Flow Rate 04/03/24 12:00 04/03/24 14:00 04/03/24 14:17 Temperature Pulse Rate 103 H 95 Respiratory Rate 24 H Blood Pressure Pulse Oximetry 93 Oxygen Delivery Nasal Cannula Oxygen Flow Rate 5 04/03/24 14:18 04/03/24 14:31 04/03/24 16:00 Temperature Pulse Rate 95 Respiratory Rate 24 H Blood Pressure Pulse Oximetry 96 93 Oxygen Delivery Nasal Cannula Nasal Cannula Oxygen Flow Rate 5 5 04/03/24 16:00 04/03/24 16:00 04/03/24 18:00 Temperature 98.2 F Pulse Rate 101 H 99 105 H Respiratory Rate 25 H Blood Pressure 121/84 Pulse Oximetry 92 Oxygen Delivery Oxygen Flow Rate 04/03/24 19:53 04/03/24 20:00 04/03/24 20:34 Temperature 97.7 F Pulse Rate 99 101 H 101 H Respiratory Rate 28 H Blood Pressure 135/113 H Pulse Oximetry 93 Oxygen Delivery Oxygen Flow Rate 04/03/24 20:35 04/03/24 20:59 04/03/24 20:59 Temperature Pulse Rate 96 Respiratory Rate 20 Blood Pressure Pulse Oximetry 93 97 Oxygen Delivery Nasal Cannula Nasal Cannula Oxygen Flow Rate 4.5 5 04/03/24 21:04 04/03/24 21:57 04/03/24 22:00 Temperature Pulse Rate 90 86 Respiratory Rate 20 Blood Pressure 124/95 H Pulse Oximetry Oxygen Delivery Oxygen Flow Rate 04/04/24 00:00 04/04/24 00:00 04/04/24 00:35 Temperature 97.9 F Pulse Rate 85 90 Respiratory Rate 26 H Blood Pressure 118/96 H Pulse Oximetry 93 93 Oxygen Delivery Nasal Cannula Oxygen Flow Rate 4.5 04/04/24 02:00 04/04/24 03:17 04/04/24 03:26 Temperature Pulse Rate 82 91 89 Respiratory Rate 20 20 Blood Pressure Pulse Oximetry Oxygen Delivery Oxygen Flow Rate 04/04/24 04:00 04/04/24 04:18 04/04/24 04:30 Temperature 97.5 F L Pulse Rate 87 92 Respiratory Rate 24 H Blood Pressure 123/73 Pulse Oximetry 98 93 Oxygen Delivery Nasal Cannula Oxygen Flow Rate 4.5 04/04/24 06:00 04/04/24 08:05 04/04/24 08:36 Temperature 97.7 F Pulse Rate 89 95 105 H Respiratory Rate 24 H Blood Pressure 104/81 Pulse Oximetry 97 Oxygen Delivery Oxygen Flow Rate Intake/Output Intake/Output: Intake & Output 04/01/24 04/02/24 04/03/24 04/04/24 23:59 23:59 23:59 23:59 Intake Total 500 1280 1530 1150 Output Total 800 800 250 Balance 500 480 730 900 Meds/Results Medications: Active Medications Generic Name Dose Route Start Last Admin Trade Name Freq PRN Reason Stop Dose Admin Acetaminophen 650 mg 04/01/24 17:35 04/02/24 17:11 Acetaminophen 325 Mg Tablet PO 650 mg Q4H PRN Administration Mild Pain (1-3) or Fever Hydrocodone Bitart/Acetaminophen 1 tab 04/01/24 17:35 04/03/24 20:35 Hydrocodone/Acetaminophen (*Crx) 5-325 Mg Tablet PO 1 tab Q4H PRN Administration Pain Rated 4-6 Albuterol 2 puff 04/02/24 01:33 Albuterol Sulfate (*Sp) Aerosol 1 Puff INHALATION Q4HRT PRN wheezing Buspirone HCl 5 mg 04/02/24 09:00 04/04/24 08:37 Buspirone Hcl 5 Mg Tablet PO 5 mg BID ARGELIA Administration Enoxaparin Sodium 40 mg 04/02/24 09:00 04/04/24 08:37 Enoxaparin 40 Mg/0.4 Ml Syringe SUB-Q 40 mg DAILY ARGELIA Administration Levalbuterol HCl 0.63 mg 04/01/24 20:00 04/04/24 08:19 Levalbuterol Neb 1.25 Mg/3 Ml INHALATION 0.63 mg Q6HRT ARGELIA Administration Levofloxacin 500 mg 04/02/24 09:00 04/04/24 08:36 Levofloxacin 500 Mg Tablet PO 500 mg DAILY ARGELIA Administration Losartan Potassium 100 mg 04/02/24 09:00 04/04/24 08:36 Losartan Potassium 100 Mg Tablet PO 100 mg DAILY ARGELIA Administration Methylprednisolone Sodium Succinate 60 mg 04/01/24 21:00 04/04/24 06:11 Methylprednisolone Sod Succ 125 Mg Vial IV PUSH 60 mg Q6HR ARGELIA Administration Metoprolol Tartrate 50 mg 04/02/24 02:00 04/04/24 08:36 Metoprolol Tartrate 50 Mg Tab PO 50 mg Q12HR ARGELIA Administration Nicotine 1 patch 04/02/24 09:00 04/04/24 08:36 Nicotine (*Pbkc) 21 Mg Patch TRANSDERM 1 patch DAILY ARGELIA Administration Nortriptyline HCl 50 mg 04/02/24 09:00 04/04/24 08:36 Nortriptyline Hcl 25 Mg Capsule PO 50 mg DAILY ARGELIA Administration Ondansetron HCl 4 mg 04/01/24 17:35 Ondansetron Inj 4 Mg/2 Ml Vial IV PUSH Q4H PRN Nausea Pantoprazole Sodium 40 mg 04/02/24 09:00 04/04/24 08:36 Pantoprazole 40 Mg Tablet PO 40 mg QAM ARGELIA Administration Fluticasone/Salmeterol 2 puff 04/02/24 08:00 04/04/24 08:21 Fluticasone/Salmeterol 115-21 Mcg Inhaler 1 Puff INHALATION 2 puff Q12HRT ARGELIA Administration Umeclidinium [place] 1 puff 04/02/24 08:00 04/03/24 08:28 Umeclidinium [place] 62.5 Mcg Ellipta INHALATION 1 puff DAILYRT ARGELIA Administration Radiology Results: ITS Impressions Chest X-Ray 04/01/24 14:02 IMPRESSION: No acute cardiopulmonary process. Chest CTA 04/01/24 16:36 IMPRESSION: Evaluation of the subsegmental pulmonary arteries limited by motion artifact. No CT evidence of central or segmental acute pulmonary embolus. No acute process detected in the chest. Stable left upper lobe mass. Subcarinal lymphadenopathy. Labs Labs: Laboratory Results - last 24 hr 04/04/24 04:49 WBC 12.2 H RBC 4.93 Hgb 15.0 Hct 46.0 MCV 93.3 MCH 30.4 MCHC 32.6 RDW 14.0 Plt Count 301 MPV 9.1 Immature Gran % (Auto) 0.4 Neut % (Auto) 87.3 H Lymph % (Auto) 8.9 L [place] % (Auto) 2.9 Eos % (Auto) 0.4 Baso % (Auto) 0.1 L Lymph # (Auto) 1.08 [place] # (Auto) 0.4 Eos # (Auto) 0.1 Baso # (Auto) 0.0 Abs Immat Gran (auto) 0.05 H Absolute Neuts (auto) 10.6 H Absolute Nucleated RBC 0.000 Nucleated RBC % 0.0 Sodium 133 L Potassium 5.1 H Chloride 95 L Carbon Dioxide 38 H Anion Gap 0 L BUN 28 H Creatinine 0.70 Estim Creat Clear Calc 75 Estimated GFR > 60 Glucose 129 H Calcium 9.8 Magnesium 2.4 H Total Bilirubin 0.4 AST 17 ALT 13 Alkaline Phosphatase 128 H Total Protein 7.0 Albumin 3.8 Quality VTE Prophylaxis VTE prophylaxis: pharmacologic ordered Hospitalist [facility] Advance Care Plan I have confirmed that the patient's Advanced Care Plan is present, code status is documented, or surrogate decision maker is listed in patient medical record.: Yes Medication Reconciliation I have utilized all available resources to obtain, update and review the patients current medications (includes all prescriptions, OTC, herbals, cannabis, and nutritional supplements).: Yes
[2024-04-04] MEDS: UMECLIDINIUM BROMIDE 62.5 MCG ELLIPTA 1 PUFF INHALATION (10:54)
--- NOTE | 2024-04-04 12:05 | P.PNPL_ITS ---
Progress Note: A&P Assessment and Plan (1) COPD exacerbation: Code(s): J44.1 - Chronic obstructive pulmonary disease with (acute) exacerbation Status: Acute Assessment and Plan: Patient with a history of COPD. PFTs on 11/06/2023 with very severe obstructive abnormality, pre bronchodilator FEV1 0.54 L, 25% predicted, ratio 40%. No bronchodilator response, hyperinflation and a decreased DLCO that normalized when adjusted for alveolar volume. CT scan of the chest on 04/01/2024 shows moderate to severe apical predominant centrilobular emphysema. Patient was on no oxygen at rest, 3 L with activity. 04/04/24: Overall the patient tells me she is minimally improved. She continues with shortness of breath, cough with dark green phlegm. She is afebrile. White blood cell count 12.2, creatinine 0.7. Overall she tells me that she has 40% back to her normal. When she arrived she tells me she was 10% of her normal. When I enter the room she was on room air with saturation 72%. I placed her on 5 L nasal cannula saturations 94%. Patient has chronic hypercarbic respiratory failure and I attempted to place her on BiPAP and then noninvasive ventilator with the AVAPS mode and she could not tolerate any of these and told me she needed the mask off immediately the as she was claustrophobic and she said she could breathe. She cannot tolerate BiPAP or noninvasive ventilator. Will attempt tomorrow. Plan: Patient has improved. She has no wheezing today. I will decrease her Solu-Medrol from 60 Q 6 to 20q6. I would discontinue her nebulizers and place her on Advair 115-21 at 2 puffs q.12 hours and Incruse 62.5 at 1 puff q.day. the patient is on Levaquin since 04/02/2024, day 3. I will send a respiratory pathogen panel looking for additional etiologies of her COPD exacerbation. Goal saturation 90-94%. Wean oxygen accordingly. Discussed with Dr. Michaud, will follow with you. 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 She does use 2-3L oxygen with exertion. Oncologist is Dr. Watkins. She has been evaluated by Dr. Burgess at [facility]. I am tentatively planning to treat her 2 lung lesions with SBRT 50Gy/5Fx. She recently completed stereotactic radiosurgery to the RAF lung. Treatment Delivered: She received a total of 50 Gy delivered in 5 fractions using photon-based SBRT on Elekta Versa, delivered twice weekly, from 01/07/24 to 01/21/24. CT scan of the chest on 04/01/2024 shows a stable left upper lobe lesion. Subjective Date/time seen: 04/04/24 12:05 Interval history: Apr 03 at 19:38 in IMU 203 NEW: Sherri Ramirez is 63 years old, followed in pulmonary clinic. She has COPD, O2 use with exertion 3 L/min and none at rest, RAISSA, lung cancer. She was in the office 02/26/24, she was stable and agreed to have sleep testing. She presented to the ER on Apr 01 with 2 days of coughing with green sputum with increased shortness of breath. She also had 3 days of pain below her eyes. This is new. She had a slightly sore throat with raspy voice, no GI symptoms. She has had no sick contacts, has not been out of the house. During the holidays, she avoided family to keep from getting sick. Her saturation at home was lower than usual, 88% on room air. She started using O2 at 3 L/minute, saturation increased to 95%. ABGs showed respiratory acidosis April 02, improved by the third ABG. PCR was negative for influenza A, B, RSV and COVID. CTA 04/01/24 = IMPRESSION: Evaluation of the subsegmental pulmonary arteries limited by motion artifact. No CT evidence of central or segmental acute pulmonary embolus. No acute process detected in the chest. Stable left upper lobe mass. Subcarinal lymphadenopathy Her WBC has increased since admission, 8.7 now 15.5. She has not had leg swelling, chest pain or abdominal pain. No fevers. She denied being around any sick contacts. 04/04/24: Overall the patient tells me she is minimally improved. She continues with shortness of breath, cough with dark green phlegm. She is afebrile. White blood cell count 12.2, creatinine 0.7. Overall she tells me that she has 40% back to her normal. When she arrived she tells me she was 10% of her normal. When I enter the room she was on room air with saturation 72%. I placed her on 5 L nasal cannula saturations 94%. Patient has chronic hypercarbic respiratory failure and I attempted to place her on BiPAP and then noninvasive ventilator with the AVAPS mode and she could not tolerate any of these and told me she needed the mask off immediately the as she was claustrophobic and she said she could breathe. DATA * 04/01/24 CTA = no PE, stable RAF mass. * 04/02/24 : Sodium 134, potassium 4.4, chloride 101, carbon dioxide 32, BUN 15, creatinine 0.6, estimated GFR greater than 60, glucose 102, lactate acid 1.2, AST 23, ALT 14, alkaline phosphatase 177, protein 8.0, albumin 4.1, PCR swabs negative for influenza A/B, RSV, SARS-CoV-2 * ABG Review of Systems Constitutional: Constitutional: Reports no additional constitutional complaints Eyes: Eyes: Reports no additional eye complaints ENT: Reports system reviewed and no additional complaints, except as documented Cardiovascular: Cardiovascular: Reports no additional cardiovascular complaints Respiratory: Respiratory: Reports no additional respiratory complaints Gastrointestinal: Gastrointestinal: Reports no additional gastrointestinal complaints Musculoskeletal: Musculoskeletal: Reports no additional musculoskeletal complaints Neurologic: Reports system reviewed and no additional complaints, except as documented Psychiatric: Psychiatric: Reports no additional psychiatric complaints Endocrine: Endocrine: Reports no additional endocrine complaints Hematologic/Lymphatic: Hematologic/Lymphatic: Reports no additional hematologic/lymphatic complaints Allergic/Immunologic: Allergic/Immunologic: Reports no additional allergic/immunologic complaints Exam Const: General: cooperative, healthy appearing and comfortable Orientation/consciousness: oriented to person, oriented to place and oriented to time HENMT: Head: normal to inspection Ears: hearing grossly normal bilaterally Eyes: General: appearance normal, both eyes and all related structures Neck: Neck: normal visual inspection Chest: Chest palpation & inspection: normal inspection of the chest Resp: Effort & Inspection: normal respiratory effort and able to speak in complete sentences Auscultation: no crackles, no rales, no rhonchi, no wheezes and diminished lung sounds Cardio: Jugular venous distension: no JVD GI: Inspection: normal to inspection GI Palp: No abdominal tenderness Skin: General skin exam: normal color Neuro: General: oriented to person, oriented to place and oriented to time Extrem: General: normal to inspection Psych: Appearance: grossly normal Objective Data Vital Signs Vital Signs: Vital Signs - 24 hr 04/03/24 14:00 04/03/24 14:17 04/03/24 14:18 Temperature Pulse Rate 103 H 95 Respiratory Rate 24 H Blood Pressure Pulse Oximetry 96 Oxygen Delivery Nasal Cannula Oxygen Flow Rate 5 Fraction of Inspired Oxygen 04/03/24 14:31 04/03/24 16:00 04/03/24 16:00 Temperature Pulse Rate 95 101 H Respiratory Rate 24 H Blood Pressure Pulse Oximetry 93 Oxygen Delivery Nasal Cannula Oxygen Flow Rate 5 Fraction of Inspired Oxygen 04/03/24 16:00 04/03/24 18:00 04/03/24 19:53 Temperature 36.8 C 36.5 C Pulse Rate 99 105 H 99 Respiratory Rate 25 H 28 H Blood Pressure 121/84 135/113 H Pulse Oximetry 92 93 Oxygen Delivery Oxygen Flow Rate Fraction of Inspired Oxygen 04/03/24 20:00 04/03/24 20:34 04/03/24 20:35 Temperature Pulse Rate 101 H 101 H Respiratory Rate Blood Pressure Pulse Oximetry 93 Oxygen Delivery Nasal Cannula Oxygen Flow Rate 4.5 Fraction of Inspired Oxygen 04/03/24 20:59 04/03/24 20:59 04/03/24 21:04 Temperature Pulse Rate 96 90 Respiratory Rate 20 20 Blood Pressure Pulse Oximetry 97 Oxygen Delivery Nasal Cannula Oxygen Flow Rate 5 Fraction of Inspired Oxygen 04/03/24 21:57 04/03/24 22:00 04/04/24 00:00 Temperature Pulse Rate 86 Respiratory Rate Blood Pressure 124/95 H Pulse Oximetry 93 Oxygen Delivery Nasal Cannula Oxygen Flow Rate 4.5 Fraction of Inspired Oxygen 04/04/24 00:00 04/04/24 00:35 04/04/24 02:00 Temperature 36.6 C Pulse Rate 85 90 82 Respiratory Rate 26 H Blood Pressure 118/96 H Pulse Oximetry 93 Oxygen Delivery Oxygen Flow Rate Fraction of Inspired Oxygen 04/04/24 03:17 04/04/24 03:26 04/04/24 04:00 Temperature Pulse Rate 91 89 87 Respiratory Rate 20 20 Blood Pressure Pulse Oximetry Oxygen Delivery Oxygen Flow Rate Fraction of Inspired Oxygen 04/04/24 04:18 04/04/24 04:30 04/04/24 06:00 Temperature 36.4 C L Pulse Rate 92 89 Respiratory Rate 24 H Blood Pressure 123/73 Pulse Oximetry 98 93 Oxygen Delivery Nasal Cannula Oxygen Flow Rate 4.5 Fraction of Inspired Oxygen 04/04/24 08:00 04/04/24 08:05 04/04/24 08:19 Temperature 36.5 C Pulse Rate 103 H 95 Respiratory Rate 24 H Blood Pressure 104/81 Pulse Oximetry 97 92 Oxygen Delivery Nasal Cannula Oxygen Flow Rate 4.5 Fraction of Inspired Oxygen 38 04/04/24 08:19 04/04/24 08:36 04/04/24 08:41 Temperature Pulse Rate 105 H 105 H 113 H Respiratory Rate 20 20 Blood Pressure Pulse Oximetry Oxygen Delivery Oxygen Flow Rate Fraction of Inspired Oxygen 04/04/24 10:00 Temperature Pulse Rate 96 Respiratory Rate Blood Pressure Pulse Oximetry Oxygen Delivery Oxygen Flow Rate Fraction of Inspired Oxygen Intake/Output Intake/Output: Intake & Output 04/01/24 04/02/24 04/03/24 04/04/24 23:59 23:59 23:59 23:59 Intake Total 500 1280 1530 1270 Output Total 800 800 250 Balance 500 712 871 1185 Meds/Results Medications: Active Medications Generic Name Dose Route Start Last Admin Trade Name Freq PRN Reason Stop Dose Admin Acetaminophen 650 mg 04/01/24 17:35 04/02/24 17:11 Acetaminophen 325 Mg Tablet PO 650 mg Q4H PRN Administration Mild Pain (1-3) or Fever Hydrocodone Bitart/Acetaminophen 1 tab 04/01/24 17:35 04/03/24 20:35 Hydrocodone/Acetaminophen (*Crx) 5-325 Mg Tablet PO 1 tab Q4H PRN Administration Pain Rated 4-6 Albuterol 2 puff 04/02/24 01:33 Albuterol Sulfate (*Sp) Aerosol 1 Puff INHALATION Q4HRT PRN wheezing Buspirone HCl 5 mg 04/02/24 09:00 04/04/24 08:37 Buspirone Hcl 5 Mg Tablet PO 5 mg BID ARGELIA Administration Enoxaparin Sodium 40 mg 04/02/24 09:00 04/04/24 08:37 Enoxaparin 40 Mg/0.4 Ml Syringe SUB-Q 40 mg DAILY ARGELIA Administration Levofloxacin 500 mg 04/02/24 09:00 04/04/24 08:36 Levofloxacin 500 Mg Tablet PO 500 mg DAILY ARGELIA Administration Losartan Potassium 100 mg 04/02/24 09:00 04/04/24 08:36 Losartan Potassium 100 Mg Tablet PO 100 mg DAILY ARGELIA Administration Methylprednisolone Sodium Succinate 20 mg 04/04/24 12:00 Methylprednisolone Sod Succ 40 Mg Vial IV PUSH Q6HR ARGELIA Metoprolol Tartrate 50 mg 04/02/24 02:00 04/04/24 08:36 Metoprolol Tartrate 50 Mg Tab PO 50 mg Q12HR ARGELIA Administration Nicotine 1 patch 04/02/24 09:00 04/04/24 08:36 Nicotine (*Pbkc) 21 Mg Patch TRANSDERM 1 patch DAILY ARGELIA Administration Nortriptyline HCl 50 mg 04/02/24 09:00 04/04/24 08:36 Nortriptyline Hcl 25 Mg Capsule PO 50 mg DAILY ARGELIA Administration Ondansetron HCl 4 mg 04/01/24 17:35 Ondansetron Inj 4 Mg/2 Ml Vial IV PUSH Q4H PRN Nausea Pantoprazole Sodium 40 mg 04/02/24 09:00 04/04/24 08:36 Pantoprazole 40 Mg Tablet PO 40 mg QAM [facility] Administration Fluticasone/Salmeterol 2 puff 04/02/24 08:00 04/04/24 08:21 Fluticasone/Salmeterol 115-21 Mcg Inhaler 1 Puff INHALATION 2 puff Q12HRT ARGELIA Administration Umeclidinium [place] 1 puff 04/02/24 08:00 04/04/24 10:54 Umeclidinium [place] 62.5 Mcg Ellipta INHALATION 1 puff DAILYRT ARGELIA Administration Radiology Results: ITS Impressions Chest X-Ray 04/01/24 14:02 IMPRESSION: No acute cardiopulmonary process. Chest CTA 04/01/24 16:36 IMPRESSION: Evaluation of the subsegmental pulmonary arteries limited by motion artifact. No CT evidence of central or segmental acute pulmonary embolus. No acute process detected in the chest. Stable left upper lobe mass. Subcarinal lymphadenopathy. Labs Labs: Laboratory Results - last 24 hr 04/04/24 04:49 WBC 12.2 H RBC 4.93 Hgb 15.0 Hct 46.0 MCV 93.3 MCH 30.4 MCHC 32.6 RDW 14.0 Plt Count 301 MPV 9.1 Immature Gran % (Auto) 0.4 Neut % (Auto) 87.3 H Lymph % (Auto) 8.9 L [place] % (Auto) 2.9 Eos % (Auto) 0.4 Baso % (Auto) 0.1 L Lymph # (Auto) 1.08 [place] # (Auto) 0.4 Eos # (Auto) 0.1 Baso # (Auto) 0.0 Abs Immat Gran (auto) 0.05 H Absolute Neuts (auto) 10.6 H Absolute Nucleated RBC 0.000 Nucleated RBC % 0.0 Sodium 133 L Potassium 5.1 H Chloride 95 L Carbon Dioxide 38 H Anion Gap 0 L BUN 28 H Creatinine 0.70 Estim Creat Clear Calc 75 Estimated GFR > 60 Glucose 129 H Calcium 9.8 Magnesium 2.4 H Total Bilirubin 0.4 AST 17 ALT 13 Alkaline Phosphatase 128 H Total Protein 7.0 Albumin 3.8
[2024-04-04] MEDS: methylPREDNISolone SOD SUCC 40 MG VIAL 20 MG IV PUSH ×3 (12:47→23:39)
--- NOTE | 2024-04-04 13:58 | PC.NURSE ---
This patient, Sherri Ramirez, was transferred to [[id number] ] on 04/04/24 at 1358. Personal belongings sent with patient. Report given to [Peyman ]. Appropriate documentation sent with patient.
[2024-04-05] VITALS (7 sets, daily range): BP systolic 116–129; BP diastolic 82–89; PULSE 83–106; RESP 16–22; TEMP 36.3–36.8; O2SAT 90–100
--- NOTE | 2024-04-05 04:34 | PC.NURSE ---
DOCUMENTATION AND MEDICATION ADMINISTRATION PROVIDED BY GRADUATE NURSE PETRA VINCENT AND REVIEWED BY RN SIOBHAN CARR
[2024-04-05] MEDS: methylPREDNISolone SOD SUCC 40 MG VIAL 20 MG IV PUSH (05:43)
[2024-04-05 07:05] LABS: Basophils Percent Auto 0.2 % (0.2-1.2); Eosinophils Percent Auto 0.3 % (0-4.4); Hematocrit 46.9 % (37.0-47.0); Hemoglobin 14.9 g/dL (12.0-15.0); Immature Granulocyte Absolute 0.07 K/mm3 (0.00-0.031); Immature Granulocyte Percent A 0.6 % (0-0.5); Lymphocytes Absolute Auto 1.39 K/mm3 (0.9-3.2); Lymphocytes Percent Auto 12.1 % (18.3-44.2); Mean Corpuscular HGB Conc 31.8 g/dl (32-36); Mean Corpuscular Hemoglobin 29.7 pg (26-34); Mean Corpuscular Volume 93.6 fl (80-100); Mean Platelet Volume 9.3 fl (7.4-10.4); Monocytes Absolute Auto 0.7 K/mm3 (0.1-0.6); Monocytes Percent Auto 5.7 % (2.6-8.5); Neutrophils Absolute Auto 9.3 K/mm3 (1.3-6.7); Neutrophils Percent Auto 81.1 % (45.5-73.1); Platelet Count Result 307 k/mm3 (150-375); Red Blood Count 5.01 M/mm3 (4.2-5.4); Red Cell Distribution Width 14.1 % (11.5-14.5); White Blood Count 11.5 K/mm3 (4.5-10.0)
[2024-04-05 07:17] LABS: Magnesium 2.4 mg/dL (1.6-2.3)
[2024-04-05 07:20] LABS: Alanine Aminotransferase 14 U/L (6-35); Albumin Level 3.7 g/dL (3.5-5.1); Alkaline Phosphatase 110 U/L (38-126); Aspartate Amino Transferase 18 U/L (14-36); Bilirubin,Total 0.5 mg/dL (0.2-1.3); Blood Urea Nitrogen 32 mg/dL (7-17); Calcium 9.8 mg/dL (8.4-10.2); Carbon Dioxide > 40 mmol/L (22-30); Chloride 96 mmol/L (98-107); Estimated CRCL calculation 66 ml/min; Estimated Glomerular Filt Rate > 60; Glucose 108 mg/dL (65-110); Potassium 5.5 mmol/L (3.4-5.0); Sodium 135 mmol/L (137-145)
[2024-04-05] MEDS: NICOTINE (*PBKC) 21 MG PATCH 1 PATCH TRANSDERM (08:16)
[2024-04-05] MEDS: NORTRIPTYLINE HCL 25 MG CAPSULE 50 MG PO (08:16)
[2024-04-05] MEDS: busPIRone HCL 5 MG TABLET PO ×2 (08:16→17:10)
[2024-04-05] MEDS: levoFLOXacin 500 MG TABLET PO (08:16)
[2024-04-05] MEDS: PANTOPRAZOLE 40 MG TABLET PO (08:16)
[2024-04-05] MEDS: METOPROLOL TARTRATE 50 MG TAB PO ×2 (08:16→20:18)
[2024-04-05] MEDS: ENOXAPARIN 40 MG/0.4 ML SYRINGE SUB-Q (08:16)
[2024-04-05] MEDS: LOSARTAN POTASSIUM 100 MG TABLET PO (08:17)
[2024-04-05] MEDS: FLUTICASONE/SALMETEROL 115-21 MCG INHALER 1 PUFF 2 PUFF INHALATION ×2 (09:34→22:30)
[2024-04-05] MEDS: UMECLIDINIUM BROMIDE 62.5 MCG ELLIPTA 1 PUFF INHALATION (09:34)
--- NOTE | 2024-04-05 10:20 | P.PNPL_ITS ---
Progress Note: A&P Assessment and Plan (1) COPD exacerbation: Code(s): J44.1 - Chronic obstructive pulmonary disease with (acute) exacerbation Status: Acute Assessment and Plan: Patient with a history of COPD. PFTs on 11/06/2023 with very severe obstructive abnormality, pre bronchodilator FEV1 0.54 L, 25% predicted, ratio 40%. No bronchodilator response, hyperinflation and a decreased DLCO that normalized when adjusted for alveolar volume. CT scan of the chest on 04/01/2024 shows moderate to severe apical predominant centrilobular emphysema. Patient was on no oxygen at rest, 3 L with activity. 04/04/24: Overall the patient tells me she is minimally improved. She continues with shortness of breath, cough with dark green phlegm. She is afebrile. White blood cell count 12.2, creatinine 0.7. Overall she tells me that she has 40% back to her normal. When she arrived she tells me she was 10% of her normal. When I enter the room she was on room air with saturation 72%. I placed her on 5 L nasal cannula saturations 94%. Patient has chronic hypercarbic respiratory failure and I attempted to place her on BiPAP and then noninvasive ventilator with the AVAPS mode and she could not tolerate any of these and told me she needed the mask off immediately the as she was claustrophobic and she said she could breathe. She cannot tolerate BiPAP or noninvasive ventilator. Will attempt tomorrow. Plan: Patient has improved. She has no wheezing today. I will decrease her Solu-Medrol from 60 Q 6 to 20q6. I would discontinue her nebulizers and place her on Advair 115-21 at 2 puffs q.12 hours and Incruse 62.5 at 1 puff q.day. the patient is on Levaquin since 04/02/2024, day 3. I will send a respiratory pathogen panel looking for additional etiologies of her COPD exacerbation. Goal saturation 90-94%. Wean oxygen accordingly. 04/05/24: She is doing much better today. She feels 75% back to her normal. She slept well on nasal cannula oxygen. Her breathing feels normal, her cough is less and remains dry. Her saturations on 4-1/2 L nasal cannula is 96% and I decreased her to 4 L. Plan: I will change the solumedrol to prednisone 40 mg a day, day 4 of steroids. Continue Advair and Incruse inhalers. Continue Levaquin, day 4. I will check an overnight oximetry on 4 L. if the patient remains clinically stable tomorrow will consider discharge on these pulmonary medications: Levaquin 750 mg p.o. q.day x2 days, last dose on 04/08/2024 Symbicort 160-4.5 at 2 puffs b.i.d. Spiriva Respimat 2.5 mcg at 2 puffs q.day rescue albuterol 2 puffs q.4 hours p.r.n. shortness of breath or wheezing. Oxygen at rest and with activity per formal home O2 assessment on the day of discharge. Oxygen at night as directed by overnight oximetry on 04/05/[address] Michaud, will follow with you. 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 She does use 2-3L oxygen with exertion. Oncologist is Dr. Watkins. She has been evaluated by Dr. Burgess at [facility]. I am tentatively planning to treat her 2 lung lesions with SBRT 50Gy/5Fx. She recently completed stereotactic radiosurgery to the RAF lung. Treatment Delivered: She received a total of 50 Gy delivered in 5 fractions using photon-based SBRT on Elekta Versa, delivered twice weekly, from 01/07/24 to 01/21/24. 04/04/24: CT scan of the chest on 04/01/2024 shows a stable left upper lobe lesion. Subjective Date/time seen: 04/05/24 10:20 Interval history: Apr 03 at 19:38 in IMU 203 NEW: Sherri Ramirez is 63 years old, followed in pulmonary clinic. She has COPD, O2 use with exertion 3 L/min and none at rest, RAISSA, lung cancer. She was in the office 02/26/24, she was stable and agreed to have sleep testing. She presented to the ER on Apr 01 with 2 days of coughing with green sputum with increased shortness of breath. She also had 3 days of pain below her eyes. This is new. She had a slightly sore throat with raspy voice, no GI symptoms. She has had no sick contacts, has not been out of the house. During the holidays, she avoided family to keep from getting sick. Her saturation at home was lower than usual, 88% on room air. She started using O2 at 3 L/minute, saturation increased to 95%. ABGs showed respiratory acidosis April 02, improved by the third ABG. PCR was negative for influenza A, B, RSV and COVID. CTA 04/01/24 = IMPRESSION: Evaluation of the subsegmental pulmonary arteries limited by motion artifact. No CT evidence of central or segmental acute pulmonary embolus. No acute process detected in the chest. Stable left upper lobe mass. Subcarinal lymphadenopathy Her WBC has increased since admission, 8.7 now 15.5. She has not had leg swelling, chest pain or abdominal pain. No fevers. She denied being around any sick contacts. 04/04/24: Overall the patient tells me she is minimally improved. She continues with shortness of breath, cough with dark green phlegm. She is afebrile. White blood cell count 12.2, creatinine 0.7. Overall she tells me that she has 40% back to her normal. When she arrived she tells me she was 10% of her normal. When I enter the room she was on room air with saturation 72%. I placed her on 5 L nasal cannula saturations 94%. Patient has chronic hypercarbic respiratory failure and I attempted to place her on BiPAP and then noninvasive ventilator with the AVAPS mode and she could not tolerate any of these and told me she needed the mask off immediately the as she was claustrophobic and she said she could breathe. 04/05/24: She is doing much better today. She feels 75% back to her normal. She slept well on nasal cannula oxygen. Her breathing feels normal, her cough is less and remains dry. Her saturations on 4-1/2 L nasal cannula is 96% and I decreased her to 4 L. DATA * 04/01/24 CTA = no PE, stable RAF mass. * 04/02/24 : Sodium 134, potassium 4.4, chloride 101, carbon dioxide 32, BUN 15, creatinine 0.6, estimated GFR greater than 60, glucose 102, lactate acid 1.2, AST 23, ALT 14, alkaline phosphatase 177, protein 8.0, albumin 4.1, PCR swabs negative for influenza A/B, RSV, SARS-CoV-2 * ABG Review of Systems Review of Systems: All systems reviewed & are unremarkable except as noted in HPI and below Constitutional: Constitutional: Reports no additional constitutional complaints Eyes: Eyes: Reports no additional eye complaints ENT: Reports system reviewed and no additional complaints, except as documented Cardiovascular: Cardiovascular: Reports no additional cardiovascular complaints Respiratory: Respiratory: Reports no additional respiratory complaints Gastrointestinal: Gastrointestinal: Reports no additional gastrointestinal complaints Musculoskeletal: Musculoskeletal: Reports no additional musculoskeletal complaints Neurologic: Reports system reviewed and no additional complaints, except as documented Psychiatric: Psychiatric: Reports no additional psychiatric complaints Endocrine: Endocrine: Reports no additional endocrine complaints Hematologic/Lymphatic: Hematologic/Lymphatic: Reports no additional hematologic/lymphatic complaints Allergic/Immunologic: Allergic/Immunologic: Reports no additional allergic/immunologic complaints Exam Const: General: cooperative, healthy appearing and comfortable Orientation/consciousness: oriented to person, oriented to place and oriented to time HENMT: Head: normal to inspection Ears: hearing grossly normal bilaterally Eyes: General: appearance normal, both eyes and all related structures Neck: Neck: normal visual inspection Chest: Chest palpation & inspection: normal inspection of the chest Resp: Effort & Inspection: normal respiratory effort and able to speak in complete sentences Auscultation: no crackles, no rales, no rhonchi, no wheezes and diminished lung sounds Cardio: Jugular venous distension: no JVD GI: Inspection: normal to inspection Skin: General skin exam: normal color Neuro: General: oriented to person, oriented to place and oriented to time Extrem: General: normal to inspection Psych: Appearance: grossly normal Objective Data Vital Signs Vital Signs: Vital Signs - 24 hr 04/04/24 15:32 04/04/24 20:00 04/04/24 20:52 Temperature 36.4 C L 36.6 C Pulse Rate 95 75 Respiratory Rate 22 H 18 Blood Pressure 145/97 H 117/88 Pulse Oximetry 95 93 93 Oxygen Delivery Nasal Cannula Oxygen Flow Rate 3 04/04/24 21:22 04/04/24 21:25 04/05/24 06:51 Temperature 36.7 C Pulse Rate 75 83 Respiratory Rate 16 Blood Pressure 129/89 Pulse Oximetry 93 97 Oxygen Delivery Nasal Cannula Oxygen Flow Rate 4.5 04/05/24 08:16 04/05/24 09:34 Temperature Pulse Rate 91 Respiratory Rate Blood Pressure Pulse Oximetry 94 Oxygen Delivery Nasal Cannula Oxygen Flow Rate 4 Intake/Output Intake/Output: Intake & Output 04/02/24 04/03/24 04/04/24 04/05/24 23:59 23:59 23:59 23:59 Intake Total 1280 1530 1710 400 Output Total 800 800 250 Balance 478 754 0191 400 Meds/Results Medications: Active Medications Generic Name Dose Route Start Last Admin Trade Name Freq PRN Reason Stop Dose Admin Acetaminophen 650 mg 04/01/24 17:35 04/02/24 17:11 Acetaminophen 325 Mg Tablet PO 650 mg Q4H PRN Administration Mild Pain (1-3) or Fever Hydrocodone Bitart/Acetaminophen 1 tab 04/01/24 17:35 04/03/24 20:35 Hydrocodone/Acetaminophen (*Crx) 5-325 Mg Tablet PO 1 tab Q4H PRN Administration Pain Rated 4-6 Albuterol 2 puff 04/02/24 01:33 Albuterol Sulfate (*Sp) Aerosol 1 Puff INHALATION Q4HRT PRN wheezing Buspirone HCl 5 mg 04/02/24 09:00 04/05/24 08:16 Buspirone Hcl 5 Mg Tablet PO 5 mg BID ARGELIA Administration Enoxaparin Sodium 40 mg 04/02/24 09:00 04/05/24 08:16 Enoxaparin 40 Mg/0.4 Ml Syringe SUB-Q 40 mg DAILY ARGELIA Administration Levofloxacin 500 mg 04/02/24 09:00 04/05/24 08:16 Levofloxacin 500 Mg Tablet PO 500 mg DAILY ARGELIA Administration Losartan Potassium 100 mg 04/02/24 09:00 04/05/24 08:17 Losartan Potassium 100 Mg Tablet PO 100 mg DAILY ARGELIA Administration Metoprolol Tartrate 50 mg 04/02/24 02:00 04/05/24 08:16 Metoprolol Tartrate 50 Mg Tab PO 50 mg Q12HR ARGELIA Administration Nicotine 1 patch 04/02/24 09:00 04/05/24 08:16 Nicotine (*Pbkc) 21 Mg Patch TRANSDERM 1 patch DAILY ARGELIA Administration Nortriptyline HCl 50 mg 04/02/24 09:00 04/05/24 08:16 Nortriptyline Hcl 25 Mg Capsule PO 50 mg DAILY ARGELIA Administration Ondansetron HCl 4 mg 04/01/24 17:35 Ondansetron Inj 4 Mg/2 Ml Vial IV PUSH Q4H PRN Nausea Pantoprazole Sodium 40 mg 04/02/24 09:00 04/05/24 08:16 Pantoprazole 40 Mg Tablet PO 40 mg QAM ARGELIA Administration Prednisone 40 mg 04/05/24 10:10 Prednisone 20 Mg Tablet PO DAILY@0800 ARGELIA Fluticasone/Salmeterol 2 puff 04/02/24 08:00 04/05/24 09:34 Fluticasone/Salmeterol 115-21 Mcg Inhaler 1 Puff INHALATION 2 puff Q12HRT ARGELIA Administration Umeclidinium [place] 1 puff 04/02/24 08:00 04/05/24 09:34 Umeclidinium [place] 62.5 Mcg Ellipta INHALATION 1 puff DAILYRT ARGELIA Administration Radiology Results: ITS Impressions Chest X-Ray 04/01/24 14:02 IMPRESSION: No acute cardiopulmonary process. Chest CTA 04/01/24 16:36 IMPRESSION: Evaluation of the subsegmental pulmonary arteries limited by motion artifact. No CT evidence of central or segmental acute pulmonary embolus. No acute process detected in the chest. Stable left upper lobe mass. Subcarinal lymphadenopathy. Labs Labs: Laboratory Results - last 24 hr 04/05/24 06:32 WBC 11.5 H RBC 5.01 Hgb 14.9 Hct 46.9 MCV 93.6 MCH 29.7 MCHC 31.8 L RDW 14.1 Plt Count 307 MPV 9.3 Immature Gran % (Auto) 0.6 H Neut % (Auto) 81.1 H Lymph % (Auto) 12.[address] [place] % (Auto) 5.7 Eos % (Auto) 0.3 Baso % (Auto) 0.2 Lymph # (Auto) 1.39 [place] # (Auto) 0.7 H Eos # (Auto) 0.0 Baso # (Auto) 0.0 Abs Immat Gran (auto) 0.07 H Absolute Neuts (auto) 9.3 H Absolute Nucleated RBC 0.000 Nucleated RBC % 0.0 Sodium 135 L Potassium 5.5 H Chloride 96 L Carbon Dioxide > 40 H Anion Gap BUN 32 H Creatinine 0.80 Estim Creat Clear Calc 66 Estimated GFR > 60 Glucose 108 Calcium 9.8 Magnesium 2.4 H Total Bilirubin 0.5 AST 18 ALT 14 Alkaline Phosphatase 110 Total Protein 7.0 Albumin 3.7
[2024-04-05] MEDS: predniSONE 20 MG TABLET 40 MG PO (11:04)
--- NOTE | 2024-04-05 11:57 | P.PNIM_ITS ---
Progress Note: A&P Assessment and Plan (1) COPD exacerbation: Code(s): J44.1 - Chronic obstructive pulmonary disease with (acute) exacerbation Status: Acute Assessment and Plan: -On Advair, Incruse -Dyspnea on exertion with wheezing/tachypnea -Nebs, Steroids, IV magnesium -Wheezing improved after IV magnesium -Consult Pulmonology -Continue steroid -Influenza RSV COVID negative -respiratory pathogen panel pending -Chest x-ray with no acute cardiopulmonary process -CTA negative for PE central or segmental. Acute process. Stable left upper lobe mass with subcarinal lymphadenopathy (2) Lung cancer: Qualifiers: Laterality: left Lung location: upper lobe of lung Qualified Code(s): C34.12 - Malignant neoplasm of upper lobe, left bronchus or lung Code(s): C34.90 - Malignant neoplasm of unspecified part of unspecified bronchus or lung Status: Acute Assessment and Plan: See 1 (3) Respiratory acidosis: Code(s): E87.29 - Other acidosis Status: Acute Assessment and Plan: -Uncompensated respiratory acidosis -Normal lactic acid -unable to tolerate BiPAP (4) Hypertension: Code(s): I10 - Essential (primary) hypertension Status: Acute Assessment and Plan: -Blood pressure reviewed and stable -Continue home medications Plan DVT prophylaxis Lovenox Subjective Date/time seen: 04/05/24 11:57 Interval history: Discussed with [employer] who will decrease the solumedrol to prednisone 40 mg a day, day 4 of steroids. Continue Advair and Incruse inhalers. Continue Levaquin, day 4. Hearpitll check an overnight oximetry on 4 L. Review of Systems Review of Systems: All systems reviewed & are unremarkable except as noted in HPI and below Exam Narrative: GENERAL: Chronically ill-appearing, obese under acute distress HEAD: Normocephalic, atraumatic. ENT: Mucous membranes moist. NECK: Supple. CHEST: Bilateral faint wheezing and expiratory no respiratory distress HEART: regular rate and rhythm. Normal peripheral pulses. ABDOMEN: Soft, nontender, nondistended, normal active bowel sounds. EXTREMITIES: Normal range of motion. No edema. Purplish discoloration of feet and hands, warm to touch with good pulses, patient reports chronic discoloration SKIN: Warm, dry, no rash. NEURO: Alert and oriented x3. Moves all extremities well Objective Data Vital Signs Vital Signs: Vital Signs - 24 hr 04/04/24 15:32 04/04/24 20:00 04/04/24 20:52 Temperature 97.5 F L 97.9 F Pulse Rate 95 75 Respiratory Rate 22 H 18 Blood Pressure 145/97 H 117/88 Pulse Oximetry 95 93 93 Oxygen Delivery Nasal Cannula Oxygen Flow Rate 3 04/04/24 21:22 04/04/24 21:25 04/05/24 06:51 Temperature 98.0 F Pulse Rate 75 83 Respiratory Rate 16 Blood Pressure 129/89 Pulse Oximetry 93 97 Oxygen Delivery Nasal Cannula Oxygen Flow Rate 4.5 04/05/24 08:16 04/05/24 09:34 Temperature Pulse Rate 91 Respiratory Rate Blood Pressure Pulse Oximetry 94 Oxygen Delivery Nasal Cannula Oxygen Flow Rate 4 Intake/Output Intake/Output: Intake & Output 04/02/24 04/03/24 04/04/24 04/05/24 23:59 23:59 23:59 23:59 Intake Total 1280 1530 1710 520 Output Total 800 800 250 Balance 961 031 8125 520 Meds/Results Medications: Active Medications Generic Name Dose Route Start Last Admin Trade Name Freq PRN Reason Stop Dose Admin Acetaminophen 650 mg 04/01/24 17:35 04/02/24 17:11 Acetaminophen 325 Mg Tablet PO 650 mg Q4H PRN Administration Mild Pain (1-3) or Fever Hydrocodone Bitart/Acetaminophen 1 tab 04/01/24 17:35 04/03/24 20:35 Hydrocodone/Acetaminophen (*Crx) 5-325 Mg Tablet PO 1 tab Q4H PRN Administration Pain Rated 4-6 Albuterol 2 puff 04/02/24 01:33 Albuterol Sulfate (*Sp) Aerosol 1 Puff INHALATION Q4HRT PRN wheezing Buspirone HCl 5 mg 04/02/24 09:00 04/05/24 08:16 Buspirone Hcl 5 Mg Tablet PO 5 mg BID ARGELIA Administration Enoxaparin Sodium 40 mg 04/02/24 09:00 04/05/24 08:16 Enoxaparin 40 Mg/0.4 Ml Syringe SUB-Q 40 mg DAILY ARGELIA Administration Levofloxacin 500 mg 04/02/24 09:00 04/05/24 08:16 Levofloxacin 500 Mg Tablet PO 500 mg DAILY ARGELIA Administration Losartan Potassium 100 mg 04/02/24 09:00 04/05/24 08:17 Losartan Potassium 100 Mg Tablet PO 100 mg DAILY ARGELIA Administration Metoprolol Tartrate 50 mg 04/02/24 02:00 04/05/24 08:16 Metoprolol Tartrate 50 Mg Tab PO 50 mg Q12HR ARGELIA Administration Nicotine 1 patch 04/02/24 09:00 04/05/24 08:16 Nicotine (*Pbkc) 21 Mg Patch TRANSDERM 1 patch DAILY ARGELIA Administration Nortriptyline HCl 50 mg 04/02/24 09:00 04/05/24 08:16 Nortriptyline Hcl 25 Mg Capsule PO 50 mg DAILY ARGELIA Administration Ondansetron HCl 4 mg 04/01/24 17:35 Ondansetron Inj 4 Mg/2 Ml Vial IV PUSH Q4H PRN Nausea Pantoprazole Sodium 40 mg 04/02/24 09:00 04/05/24 08:16 Pantoprazole 40 Mg Tablet PO 40 mg QAM ARGELIA Administration Prednisone 40 mg 04/05/24 10:10 04/05/24 11:04 Prednisone 20 Mg Tablet PO 40 mg DAILY@0800 ARGELIA Administration Fluticasone/Salmeterol 2 puff 04/02/24 08:00 04/05/24 09:34 Fluticasone/Salmeterol 115-21 Mcg Inhaler 1 Puff INHALATION 2 puff Q12HRT ARGELIA Administration Umeclidinium [place] 1 puff 04/02/24 08:00 04/05/24 09:34 Umeclidinium [place] 62.5 Mcg Ellipta INHALATION 1 puff DAILYRT ARGELIA Administration Radiology Results: ITS Impressions Chest X-Ray 04/01/24 14:02 IMPRESSION: No acute cardiopulmonary process. Chest CTA 04/01/24 16:36 IMPRESSION: Evaluation of the subsegmental pulmonary arteries limited by motion artifact. No CT evidence of central or segmental acute pulmonary embolus. No acute process detected in the chest. Stable left upper lobe mass. Subcarinal lymphadenopathy. Labs Labs: Laboratory Results - last 24 hr 04/05/24 06:32 WBC 11.5 H RBC 5.01 Hgb 14.9 Hct 46.9 MCV 93.6 MCH 29.7 MCHC 31.8 L RDW 14.1 Plt Count 307 MPV 9.3 Immature Gran % (Auto) 0.6 H Neut % (Auto) 81.1 H Lymph % (Auto) 12.1 L [place] % (Auto) 5.7 Eos % (Auto) 0.3 Baso % (Auto) 0.2 Lymph # (Auto) 1.39 [place] # (Auto) 0.7 H Eos # (Auto) 0.0 Baso # (Auto) 0.0 Abs Immat Gran (auto) 0.07 H Absolute Neuts (auto) 9.3 H Absolute Nucleated RBC 0.000 Nucleated RBC % 0.0 Sodium 135 L Potassium 5.5 H Chloride 96 L Carbon Dioxide > 40 H Anion Gap BUN 32 H Creatinine 0.80 Estim Creat Clear Calc 66 Estimated GFR > 60 Glucose 108 Calcium 9.8 Magnesium 2.4 H Total Bilirubin 0.5 AST 18 ALT 14 Alkaline Phosphatase 110 Total Protein 7.0 Albumin 3.7 Quality VTE Prophylaxis VTE prophylaxis: pharmacologic ordered Hospitalist [facility] Advance Care Plan I have confirmed that the patient's Advanced Care Plan is present, code status is documented, or surrogate decision maker is listed in patient medical record.: Yes Medication Reconciliation I have utilized all available resources to obtain, update and review the patients current medications (includes all prescriptions, OTC, herbals, cannabis, and nutritional supplements).: Yes
--- NOTE | 2024-04-05 11:59 | PC.NURSE ---
Patient resting in bed. Patient very cooperative and compliant. Trio rounds with MD. Sleep study ordered and to be performed with 4L O2 NC. Patient able to get to the restroom without difficulty and reports feeling much better than yesterday . Patient to stay overnight.
[2024-04-06] VITALS (11 sets, daily range): BP systolic 103–119; BP diastolic 86–90; PULSE 90–106; RESP 16–17; TEMP 36.6; O2SAT 85–97
[2024-04-06] MEDS: UMECLIDINIUM BROMIDE 62.5 MCG ELLIPTA 1 PUFF INHALATION (08:02)
[2024-04-06] MEDS: FLUTICASONE/SALMETEROL 115-21 MCG INHALER 1 PUFF 2 PUFF INHALATION (08:02)
[2024-04-06] MEDS: PANTOPRAZOLE 40 MG TABLET PO (09:42)
[2024-04-06] MEDS: busPIRone HCL 5 MG TABLET PO ×2 (09:42→17:46)
[2024-04-06] MEDS: METOPROLOL TARTRATE 50 MG TAB PO (09:42)
[2024-04-06] MEDS: LOSARTAN POTASSIUM 100 MG TABLET PO (09:42)
[2024-04-06] MEDS: NORTRIPTYLINE HCL 25 MG CAPSULE 50 MG PO (09:43)
[2024-04-06] MEDS: ENOXAPARIN 40 MG/0.4 ML SYRINGE SUB-Q (09:43)
[2024-04-06] MEDS: predniSONE 20 MG TABLET 40 MG PO (09:43)
[2024-04-06] MEDS: NICOTINE (*PBKC) 21 MG PATCH 1 PATCH TRANSDERM (09:43)
[2024-04-06] MEDS: levoFLOXacin 500 MG TABLET PO (09:43)
[2024-04-06 11:57] LABS: Basophils Percent Auto 0.2 % (0.2-1.2); Eosinophils Percent Auto 0.2 % (0-4.4); Hematocrit 47.8 % (37.0-47.0); Hemoglobin 15.6 g/dL (12.0-15.0); Immature Granulocyte Absolute 0.07 K/mm3 (0.00-0.031); Immature Granulocyte Percent A 0.5 % (0-0.5); Lymphocytes Absolute Auto 2.18 K/mm3 (0.9-3.2); Lymphocytes Percent Auto 16.7 % (18.3-44.2); Mean Corpuscular HGB Conc 32.6 g/dl (32-36); Mean Corpuscular Hemoglobin 30.2 pg (26-34); Mean Corpuscular Volume 92.5 fl (80-100); Monocytes Percent Auto 7.6 % (2.6-8.5); Neutrophils Absolute Auto 9.8 K/mm3 (1.3-6.7); Neutrophils Percent Auto 74.8 % (45.5-73.1); Platelet Count Result 350 k/mm3 (150-375); Red Blood Count 5.17 M/mm3 (4.2-5.4); Red Cell Distribution Width 13.9 % (11.5-14.5); White Blood Count 13.1 K/mm3 (4.5-10.0)
--- NOTE | 2024-04-06 12:12 | PM.PNPUL ---
Progress Note: A&P Assessment and Plan (1) COPD exacerbation: Code(s): J44.1 - Chronic obstructive pulmonary disease with (acute) exacerbation Status: Acute Assessment and Plan: Patient with a history of COPD. PFTs on 11/06/2023 with very severe obstructive abnormality, pre bronchodilator FEV1 0.54 L, 25% predicted, ratio 40%. No bronchodilator response, hyperinflation and a decreased DLCO that normalized when adjusted for alveolar volume. CT scan of the chest on 04/01/2024 shows moderate to severe apical predominant centrilobular emphysema. Patient was on no oxygen at rest, 3 L with activity. 04/04/24: Overall the patient tells me she is minimally improved. She continues with shortness of breath, cough with dark green phlegm. She is afebrile. White blood cell count 12.2, creatinine 0.7. Overall she tells me that she has 40% back to her normal. When she arrived she tells me she was 10% of her normal. When I enter the room she was on room air with saturation 72%. I placed her on 5 L nasal cannula saturations 94%. Patient has chronic hypercarbic respiratory failure from COPD And she would benefit from a noninvasive ventilator to prevent deterioration and further hospitalizations. I attempted to place her on BiPAP and then noninvasive ventilator with the AVAPS mode and she could not tolerate any of these and told me she needed the mask off immediately the as she was claustrophobic and she said she could breathe. She cannot tolerate BiPAP or noninvasive ventilator. Will attempt tomorrow. Plan: Patient has improved. She has no wheezing today. I will decrease her Solu-Medrol from 60 Q 6 to 20q6. I would discontinue her nebulizers and place her on Advair 115-21 at 2 puffs q.12 hours and Incruse 62.5 at 1 puff q.day. the patient is on Levaquin since 04/02/2024, day 3. I will send a respiratory pathogen panel looking for additional etiologies of her COPD exacerbation. Goal saturation 90-94%. Wean oxygen accordingly. 04/05/24: She is doing much better today. She feels 75% back to her normal. She slept well on nasal cannula oxygen. Her breathing feels normal, her cough is less and remains dry. Her saturations on 4-1/2 L nasal cannula is 96% and I decreased her to 4 L. Plan: I will change the solumedrol to prednisone 40 mg a day, day 4 of steroids. Continue Advair and Incruse inhalers. Continue Levaquin, day 4. I will check an overnight oximetry on 4 L. 04/06/2024: Patient states she has 100% back to her normal today. She has a dry cough that is normal for her. She has no shortness of breath walking in the room. Currently she is on 1 L nasal cannula saturations 92%. She is afebrile. White blood cell count 13.1. Patient had an overnight oximetry on 4 L nasal cannula with recording duration 5 hours and 14 minutes, average saturation 96%, low saturation 85%, time with saturation less than or equal to 88% was 4 minutes, oxygen desaturation index 0.8. Of note the patient was being set up for a split night sleep study through the [facility]monary [facility] and she says that she is willing to try a home CPAP or noninvasive ventilator that may be more comfortable for her and that she should could tolerate. From a pulmonary perspective the patient is ready to be discharged on these pulmonary medications: Levaquin 750 mg p.o. q.day x2 days, last dose on 04/08/2024 Symbicort 160-4.5 at 2 puffs b.i.d. Spiriva Respimat 2.5 mcg at 2 puffs q.day rescue albuterol 2 puffs q.4 hours p.r.n. shortness of breath or wheezing. Oxygen at rest and with activity per formal home O2 assessment which I have ordered. Oxygen 4 L at night. Follow-up with her previously scheduled appointment on 05/06/2024 at 11:[address] Michaud, will follow with you. 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 She does use 2-3L oxygen with exertion. Oncologist is Dr. Watkins. She has been evaluated by Dr. Burgess at [facility]. I am tentatively planning to treat her 2 lung lesions with SBRT 50Gy/5Fx. She recently completed stereotactic radiosurgery to the RAF lung. Treatment Delivered: She received a total of 50 Gy delivered in 5 fractions using photon-based SBRT on Elekta Versa, delivered twice weekly, from 01/07/24 to 01/21/24. 04/04/24: CT scan of the chest on 04/01/2024 shows a stable left upper lobe lesion. Subjective Date/time seen: 04/06/24 12:12 Interval history: Apr 03 at 19:38 in IMU 203 NEW: Sherri Ramirez is 63 years old, followed in pulmonary clinic. She has COPD, O2 use with exertion 3 L/min and none at rest, RAISSA, lung cancer. She was in the office 02/26/24, she was stable and agreed to have sleep testing. She presented to the ER on Apr 01 with 2 days of coughing with green sputum with increased shortness of breath. She also had 3 days of pain below her eyes. This is new. She had a slightly sore throat with raspy voice, no GI symptoms. She has had no sick contacts, has not been out of the house. During the holidays, she avoided family to keep from getting sick. Her saturation at home was lower than usual, 88% on room air. She started using O2 at 3 L/minute, saturation increased to 95%. ABGs showed respiratory acidosis April 02, improved by the third ABG. PCR was negative for influenza A, B, RSV and COVID. CTA 04/01/24 = IMPRESSION: Evaluation of the subsegmental pulmonary arteries limited by motion artifact. No CT evidence of central or segmental acute pulmonary embolus. No acute process detected in the chest. Stable left upper lobe mass. Subcarinal lymphadenopathy Her WBC has increased since admission, 8.7 now 15.5. She has not had leg swelling, chest pain or abdominal pain. No fevers. She denied being around any sick contacts. 04/04/24: Overall the patient tells me she is minimally improved. She continues with shortness of breath, cough with dark green phlegm. She is afebrile. White blood cell count 12.2, creatinine 0.7. Overall she tells me that she has 40% back to her normal. When she arrived she tells me she was 10% of her normal. When I enter the room she was on room air with saturation 72%. I placed her on 5 L nasal cannula saturations 94%. Patient has chronic hypercarbic respiratory failure and I attempted to place her on BiPAP and then noninvasive ventilator with the AVAPS mode and she could not tolerate any of these and told me she needed the mask off immediately the as she was claustrophobic and she said she could breathe. 04/05/24: She is doing much better today. She feels 75% back to her normal. She slept well on nasal cannula oxygen. Her breathing feels normal, her cough is less and remains dry. Her saturations on 4-1/2 L nasal cannula is 96% and I decreased her to 4 L. 04/06/2024: Patient states she has 100% back to her normal today. She has a dry cough that is normal for her. She has no shortness of breath walking in the room. Currently she is on 1 L nasal cannula saturations 92%. She is afebrile. White blood cell count 13.1. Patient had an overnight oximetry on 4 L nasal cannula with recording duration 5 hours and 14 minutes, average saturation 96%, low saturation 85%, time with saturation less than or equal to 88% was 4 minutes, oxygen desaturation index 0.8. DATA * 04/01/24 CTA = no PE, stable RAF mass. * 04/02/24 : Sodium 134, potassium 4.4, chloride 101, carbon dioxide 32, BUN 15, creatinine 0.6, estimated GFR greater than 60, glucose 102, lactate acid 1.2, AST 23, ALT 14, alkaline phosphatase 177, protein 8.0, albumin 4.1, PCR swabs negative for influenza A/B, RSV, SARS-CoV-2 * ABG Review of Systems Review of Systems: All systems reviewed & are unremarkable except as noted in HPI and below Constitutional: Constitutional: Reports no additional constitutional complaints Eyes: Eyes: Reports no additional eye complaints ENT: Reports system reviewed and no additional complaints, except as documented Cardiovascular: Cardiovascular: Reports no additional cardiovascular complaints Respiratory: Respiratory: Reports no additional respiratory complaints Gastrointestinal: Gastrointestinal: Reports no additional gastrointestinal complaints Musculoskeletal: Musculoskeletal: Reports no additional musculoskeletal complaints Neurologic: Reports system reviewed and no additional complaints, except as documented Psychiatric: Psychiatric: Reports no additional psychiatric complaints Endocrine: Endocrine: Reports no additional endocrine complaints Hematologic/Lymphatic: Hematologic/Lymphatic: Reports no additional hematologic/lymphatic complaints Allergic/Immunologic: Allergic/Immunologic: Reports no additional allergic/immunologic complaints Exam Const: General: cooperative, healthy appearing and comfortable Orientation/consciousness: oriented to person, oriented to place and oriented to time HENMT: Head: normal to inspection Ears: hearing grossly normal bilaterally Eyes: General: appearance normal, both eyes and all related structures Neck: Neck: normal visual inspection Chest: Chest palpation & inspection: normal inspection of the chest Resp: Effort & Inspection: normal respiratory effort and able to speak in complete sentences Auscultation: no crackles, no rales, no rhonchi, no wheezes and diminished lung sounds Cardio: Jugular venous distension: no JVD GI: Inspection: normal to inspection Skin: General skin exam: normal color Neuro: General: oriented to person, oriented to place and oriented to time Extrem: General: normal to inspection Psych: Appearance: grossly normal Objective Data Vital Signs Vital Signs: Vital Signs - 24 hr 04/05/24 15:24 04/05/24 19:40 04/05/24 20:00 Temperature 36.3 C L 36.8 C Pulse Rate 93 106 H 93 Respiratory Rate 18 22 H 18 Blood Pressure 117/82 116/82 Pulse Oximetry 100 90 100 Oxygen Delivery Nasal Cannula Oxygen Flow Rate 4 Fraction of Inspired Oxygen 38 04/05/24 22:32 04/06/24 08:00 04/06/24 09:42 Temperature Pulse Rate 100 95 Respiratory Rate 16 Blood Pressure 119/86 Pulse Oximetry 96 97 Oxygen Delivery Nasal Cannula Oxygen Flow Rate 4 Fraction of Inspired Oxygen Intake/Output Intake/Output: Intake & Output 04/03/24 04/04/24 04/05/24 04/06/24 23:59 23:59 23:59 23:59 Intake Total 1530 1710 870 240 Output Total 800 250 Balance 730 1460 870 240 Meds/Results Medications: Active Medications Generic Name Dose Route Start Last Admin Trade Name Freq PRN Reason Stop Dose Admin Acetaminophen 650 mg 04/01/24 17:35 04/02/24 17:11 Acetaminophen 325 Mg Tablet PO 650 mg Q4H PRN Administration Mild Pain (1-3) or Fever Hydrocodone Bitart/Acetaminophen 1 tab 04/01/24 17:35 04/06/24 12:07 Hydrocodone/Acetaminophen (*Crx) 5-325 Mg Tablet PO 1 tab Q4H PRN Administration Pain Rated 4-6 Albuterol 2 puff 04/02/24 01:33 Albuterol Sulfate (*Sp) Aerosol 1 Puff INHALATION Q4HRT PRN wheezing Buspirone HCl 5 mg 04/02/24 09:00 04/06/24 09:42 Buspirone Hcl 5 Mg Tablet PO 5 mg BID ARGELIA Administration Enoxaparin Sodium 40 mg 04/02/24 09:00 04/06/24 09:43 Enoxaparin 40 Mg/0.4 Ml Syringe SUB-Q 40 mg DAILY ARGELIA Administration Levofloxacin 500 mg 04/02/24 09:00 04/06/24 09:43 Levofloxacin 500 Mg Tablet PO 04/08/24 09:01 500 mg DAILY ARGELIA Administration Losartan Potassium 100 mg 04/02/24 09:00 04/06/24 09:42 Losartan Potassium 100 Mg Tablet PO 100 mg DAILY ARGELIA Administration Metoprolol Tartrate 50 mg 04/02/24 02:00 04/06/24 09:42 Metoprolol Tartrate 50 Mg Tab PO 50 mg Q12HR ARGELIA Administration Nicotine 1 patch 04/02/24 09:00 04/06/24 09:43 Nicotine (*Pbkc) 21 Mg Patch TRANSDERM 1 patch DAILY ARGELIA Administration Nortriptyline HCl 50 mg 04/02/24 09:00 04/06/24 09:43 Nortriptyline Hcl 25 Mg Capsule PO 50 mg DAILY ARGELIA Administration Ondansetron HCl 4 mg 04/01/24 17:35 Ondansetron Inj 4 Mg/2 Ml Vial IV PUSH Q4H PRN Nausea Pantoprazole Sodium 40 mg 04/02/24 09:00 04/06/24 09:42 Pantoprazole 40 Mg Tablet PO 40 mg QAM ARGELIA Administration Prednisone 40 mg 04/05/24 10:10 04/06/24 09:43 Prednisone 20 Mg Tablet PO 40 mg DAILY@0800 ARGELIA Administration Fluticasone/Salmeterol 2 puff 04/02/24 08:00 04/06/24 08:02 Fluticasone/Salmeterol 115-21 Mcg Inhaler 1 Puff INHALATION 2 puff Q12HRT ARGELIA Administration Umeclidinium [place] 1 puff 04/02/24 08:00 04/06/24 08:02 Umeclidinium [place] 62.5 Mcg Ellipta INHALATION 1 puff DAILYRT ARGELIA Administration Radiology Results: ITS Impressions Chest X-Ray 04/01/24 14:02 IMPRESSION: No acute cardiopulmonary process. Chest CTA 04/01/24 16:36 IMPRESSION: Evaluation of the subsegmental pulmonary arteries limited by motion artifact. No CT evidence of central or segmental acute pulmonary embolus. No acute process detected in the chest. Stable left upper lobe mass. Subcarinal lymphadenopathy. Labs Labs: Laboratory Results - last 24 hr 04/06/24 11:48 WBC 13.1 H RBC 5.17 Hgb 15.6 H Hct 47.8 H MCV 92.5 MCH 30.2 MCHC 32.6 RDW 13.9 Plt Count 350 MPV 9.0 Immature Gran % (Auto) 0.5 Neut % (Auto) 74.8 H Lymph % (Auto) 16.7 L [place] % (Auto) 7.6 Eos % (Auto) 0.2 Baso % (Auto) 0.2 Lymph # (Auto) 2.18 [place] # (Auto) 1.0 H Eos # (Auto) 0.0 Baso # (Auto) 0.0 Abs Immat Gran (auto) 0.07 H Absolute Neuts (auto) 9.8 H Absolute Nucleated RBC 0.000 Nucleated RBC % 0.0
[2024-04-06 14:11] LABS: Alanine Aminotransferase 26 U/L (6-35); Albumin Level 3.5 g/dL (3.5-5.1); Alkaline Phosphatase 102 U/L (38-126); Anion Gap 5 mmol/L (4-12); Aspartate Amino Transferase 26 U/L (14-36); Bilirubin,Total 0.7 mg/dL (0.2-1.3); Blood Urea Nitrogen 33 mg/dL (7-17); Calcium 9.8 mg/dL (8.4-10.2); Carbon Dioxide 36 mmol/L (22-30); Chloride 94 mmol/L (98-107); Estimated CRCL calculation 72 ml/min; Estimated Glomerular Filt Rate > 60; Glucose 126 mg/dL (65-110); Magnesium 2.3 mg/dL (1.6-2.3); Potassium 4.6 mmol/L (3.4-5.0); Sodium 135 mmol/L (137-145)
--- NOTE | 2024-04-06 15:34 | P.DS_ITS ---
DS: Admitting Diagnosis Discharge Date 04/06/2024 Admitting Diagnosis Shortness of breath DS: Discharge Diagnosis Discharge Diagnosis (1) COPD exacerbation: Code(s): J44.1 - Chronic obstructive pulmonary disease with (acute) exacerbation Status: Acute Assessment and Plan: -On Advair, Incruse -D Levaquin 750 mg p.o. q.day x2 days, last dose on 04/08/2024 -Symbicort 160-4.5 at 2 puffs b.i.d. -Spiriva Respimat 2.5 mcg at 2 puffs q.day -rescue albuterol 2 puffs q.4 hours p.r.n. shortness of breath or wheezing. -Oxygen at rest and with activity per formal home O2 assessment which I have ordered. -Oxygen 4 L at night. -Continue steroid -Influenza RSV COVID negative -respiratory pathogen panel pending -Chest x-ray with no acute cardiopulmonary process -CTA negative for PE central or segmental. Acute process. Stable left upper lobe mass with subcarinal lymphadenopathy (2) Lung cancer: Qualifiers: Laterality: left Lung location: upper lobe of lung Qualified Code(s): C34.12 - Malignant neoplasm of upper lobe, left bronchus or lung Code(s): C34.90 - Malignant neoplasm of unspecified part of unspecified bronchus or lung Status: Acute Assessment and Plan: See 1 (3) Respiratory acidosis: Code(s): E87.29 - Other acidosis Status: Acute Assessment and Plan: -Uncompensated respiratory acidosis -Normal lactic acid -unable to tolerate BiPAP (4) Hypertension: Code(s): I10 - Essential (primary) hypertension Status: Acute Assessment and Plan: -Blood pressure reviewed and stable -Continue home medications DS: Summary Hospital Course Hospital Course: She presented to the ER on Apr 01 with 2 days of coughing with green sputum with increased shortness of breath. She also had 3 days of pain below her eyes. This is new. She had a slightly sore throat with raspy voice, no GI symptoms. She has had no sick contacts, has not been out of the house. During the holidays, she avoided family to keep from getting sick. Her saturation at home was lower than usual, 88% on room air. She started using O2 at 3 L/minute, saturation increased to 95%. ABGs showed respiratory acidosis April 02, improved by the third ABG. PCR was negative for influenza A, B, RSV and COVID. CTA 04/01/24 = IMPRESSION: Evaluation of the subsegmental pulmonary arteries limited by motion artifact. No CT evidence of central or segmental acute pulmonary embolus. No acute process detected in the chest. Stable left upper lobe mass. Subcarinal lymphadenopathy Her WBC has increased since admission, 8.7 now 15.5. She has not had leg swelling, chest pain or abdominal pain. No fevers. She denied being around any sick contacts. I assumed on 04/03. During my examination patient was breathing comfortably on nasal cannula 2-3 L. patient was not able to tolerate BiPAP . As per Forging Operator Patient has chronic hypercarbic respiratory failure and I attempted to place her on BiPAP and then noninvasive ventilator with the AVAPS mode and she could not tolerate any of these and told me she needed the mask off immediately the as she was claustrophobic and she said she could breathe. She cannot tolerate BiPAP or noninvasive ventilator. Will attempt tomorrow. Discharge with following pulmonary recommendation: Levaquin 750 mg p.o. q.day x2 days, last dose on 04/08/2024 Symbicort 160-4.5 at 2 puffs b.i.d. Spiriva Respimat 2.5 mcg at 2 puffs q.day Rescue albuterol 2 puffs q.4 hours p.r.n. shortness of breath or wheezing. Oxygen at rest and with activity per formal home O2 assessment which I have ordered. Oxygen 4 L at night. Taper prednisone: 30 mg PO for 2 days, 20 mg PO for 2 days, 10 mg PO for 2 days. Follow-up with her previously scheduled appointment on 05/06/2024 at 11:30 a.m.. with pulmonology. Follow-up with PCP within week or 2 upon discharge. Follow-up with oncology within a week or 2 upon discharge. Status at Discharge Cognitive/behavioral status at discharge: Stable Time Spent with Patient Time attestation: Total time spent providing and/or coordinating discharge services: 45 minutes Exam Narrative: GENERAL: Chronically ill-appearing, obese under acute distress HEAD: Normocephalic, atraumatic. ENT: Mucous membranes moist. NECK: Supple. CHEST: Bilateral faint wheezing and expiratory no respiratory distress HEART: regular rate and rhythm. Normal peripheral pulses. ABDOMEN: Soft, nontender, nondistended, normal active bowel sounds. EXTREMITIES: Normal range of motion. No edema. Purplish discoloration of feet and hands, warm to touch with good pulses, patient reports chronic discoloration SKIN: Warm, dry, no rash. NEURO: Alert and oriented x3. Moves all extremities well DS: Data Data Completed and Pending Labs on day of discharge: Labs from last 24 hours 04/06/24 04/06/24 11:48 11:42 WBC 13.1 H RBC 5.17 Hgb 15.6 H Hct 47.8 H MCV 92.5 MCH 30.2 MCHC 32.6 RDW 13.9 Plt Count 350 MPV 9.0 Immature Gran % (Auto) 0.5 Neut % (Auto) 74.8 H Lymph % (Auto) 16.7 L [place] % (Auto) 7.6 Eos % (Auto) 0.2 Baso % (Auto) 0.2 Lymph # (Auto) 2.18 [place] # (Auto) 1.0 H Eos # (Auto) 0.0 Baso # (Auto) 0.0 Abs Immat Gran (auto) 0.07 H Absolute Neuts (auto) 9.8 H Absolute Nucleated RBC 0.000 Nucleated RBC % 0.0 Sodium 135 L Potassium 4.6 Chloride 94 L Carbon Dioxide 36 H Anion Gap 5 BUN 33 H Creatinine 0.73 Estim Creat Clear Calc 72 Estimated GFR > 60 Glucose 126 H Calcium 9.8 Magnesium 2.3 Total Bilirubin 0.7 AST 26 ALT 26 Alkaline Phosphatase 102 Total Protein 6.0 L Albumin 3.5 Imaging Radiologist's impression: ITS Impressions Chest X-Ray 04/01/24 14:02 IMPRESSION: No acute cardiopulmonary process. Chest CTA 04/01/24 16:36 IMPRESSION: Evaluation of the subsegmental pulmonary arteries limited by motion artifact. No CT evidence of central or segmental acute pulmonary embolus. No acute process detected in the chest. Stable left upper lobe mass. Subcarinal lymphadenopathy. Discharge Plan Discharge Attending physician on discharge: Prudencio Michaud Consulting providers: Kelin Hassan Discharging Clinician: Prudencio Michaud Anticipated Discharge Date/Time: 04/06/24 16:10 Patient Disposition: Home, Self-Care Activity: as tolerated Diet: heart healthy Discharge Instructions: Discharge with following pulmonary recommendation: Levaquin 750 mg p.o. q.day x2 days, last dose on 04/08/2024 Symbicort 160-4.5 at 2 puffs b.i.d. Spiriva Respimat 2.5 mcg at 2 puffs q.day Rescue albuterol 2 puffs q.4 hours p.r.n. shortness of breath or wheezing. 3L Oxygen at rest and 4L with activity per formal home O2 assessment which I have ordered. Oxygen 4 L at night. Taper prednisone: 30 mg PO for 2 days, 20 mg PO for 2 days, 10 mg PO for 2 days. Follow-up with her previously scheduled appointment on 05/06/2024 at 11:30 a.m.. with pulmonology. Follow-up with PCP within week or 2 upon discharge. Follow-up with oncology within a week or 2 upon discharge. Patient Instructions: Antibiotic Form Patient Language: [place] Stand Alone Forms: General Discharge Information Follow-up/Referrals: Adolfo,JARED Mcdonnell [Primary Care Provider] - Kelin Hassan MD [Physician] - Discharge Medications: New levofloxacin 500 mg Tablet 500 mg PO DAILY Qty: 2 0RF prednisone 20 mg tablet 10 mg PO DAILY Qty: 14 0RF Rx Instructions: 30 mg PO for 2 days, 20 mg PO for 2 days, 10 mg PO for 2 days. Continued buspirone 5 mg tablet 5 mg PO BID 30 Days Qty: 60 3RF Rx Instructions: Take one twice a day for anxiety. Ozempic 0.25 mg or 0.5 mg (2 mg/3 mL) pen injector 1 mg subcut WEEKLY Rx Instructions: omeprazole magnesium [Acid Airborne Sensor Specialist (omeprazole)] 20 mg Capsule,Delayed Release(Dr/Ec) 20 mg PO DAILY nicotine 21 mg/24 hr Patch 24 Hour 1 patch transdermal DAILY Qty: 30 0RF metoprolol tartrate 50 mg Tablet 50 mg PO BID losartan 100 mg Tablet 100 mg PO DAILY nortriptyline 50 mg Capsule 50 mg PO DAILY albuterol sulfate [ProAir HFA] 90 mcg/actuation HFA aerosol inhaler 2 inhalation INHALATION Q4H Qty: 8.5 6RF budesonide-formoterol [Symbicort] 160-4.5 mcg/actuation HFA aerosol inhaler 2 puff INHALATION BID Rx Instructions: 2 puffs inhalation twice daily in the morning and in the evening; Spiriva Respimat 2.5 mcg/actuation mist 2 puff inhalation DAILY 30 Days Qty: 4 5RF Discontinued ipratropium-albuterol 0.5 mg-3 mg(2.5 mg base)/3 mL Solution For Nebulization 3 ml inhalation Q6HRT PRN (Reason: SOB, wheezing) Qty: 180 0RF Date of admission: 04/02/24 11:34 Primary Care Provider: AdolfoGretchen Admitting Provider: Pranay Jimenes Attending physician on admission: Pranay Jimenes Condition: Stable
--- NOTE | 2024-04-06 16:29 | HOMEO2EVAL ---
Evaluation was performed at [facility] Home Oxygen Evaluation RC: Home Oxygen (O2) Evaluation Start: 04/06/24 11:19 Freq: ONCE Status: Active Protocol: RPE Activity Type Activity Date Activity User E-sign Co-sign Detail Recorded Client Recorded Date Recorded By Document 04/06/24 14:30 [email or web address] 04/06/24 16:20 JIM Document 04/06/24 14:32 [email or web address] 04/06/24 16:20 JIM Document 04/06/24 14:35 [email or web address] 04/06/24 16:20 JIM Document 04/06/24 14:38 [email or web address] 04/06/24 16:20 JIM Document 04/06/24 14:39 [email or web address] 04/06/24 16:20 JIM Document 04/06/24 14:45 [email or web address] 04/06/24 16:20 JIM 04/06/24 04/06/24 04/06/24 14:30 14:32 14:35 Home O2 Evaluation [Oxygen] -Test Phase Resting Resting Exercise -Oxygen Delivery Room Air Nasal Cannula Nasal Cannula -Oxygen Flow Rate (L/min) 2 2 [Pulse Oximetry] -Pulse Oximetry (90-100 %) 85 L 90 86 L [Pulse Rate] -Pulse Rate (60-100 beats/min) 90 90 [Exercise] -Ambulation Distance (feet) -Ambulation Distance (meters) [Comments] -Home Oxygen Evaluation Comments [Charges] -Evaluation Charges O2 Evaluation by Pulmonary 04/06/24 04/06/24 04/06/24 14:38 14:39 14:45 Home O2 Evaluation [Oxygen] -Test Phase Exercise Exercise Resting -Oxygen Delivery Nasal Cannula Nasal Cannula Nasal Cannula -Oxygen Flow Rate (L/min) 3 4 2 [Pulse Oximetry] -Pulse Oximetry (90-100 %) 87 L 90 93 [Pulse Rate] -Pulse Rate (60-100 beats/min) 106 H [Exercise] -Ambulation Distance (feet) 300 -Ambulation Distance (meters) 91.43 [Comments] -Home Oxygen Evaluation Comments PATIENT REQUIRES 2 L HOME O2 AT REST AND 4 L WITH ACTIVITY AND NOCTURANALLY [Charges] -Evaluation Charges
--- NOTE | 2024-04-06 16:30 | PCRCNOTE ---
HOME O2 EVAL DONE, PT HAS ALL O2 EQUIPMENT FOR D/C HOME. SENT ALL DOC AND ORDERS FOR O2 CHANGES TO [facility]. PT NOW REQUIRES 2 L REST, 4 L ACTIVITY AND NOC.
--- OUTSIDE RECORDS SUMMARY | 2024-04-08 06:47 | XMS_ITS | Continuity of Care Document ---
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 Referral None recorded. Procedures polysomno graphy, split night (PROC) [address], [address] [place] [address] [address], [place], [address], 03/10/2024 08:02:56 Surgeries None recorded. Imaging None recorded. Medication Orders Ozempic 2 mg/dose (8 mg/3 mL) subcutane ous pen injector 2023 [facility] #[id number], [address] [address], [place], [place], [id number], 01/13/2024 14:32:00 albuterol sulfate HFA 90 mcg/actua tion aerosol inhaler 2023 [facility] #[id number], [address], [place], [place], [id number], 01/13/2024 14:33:34 Patient TargetsNo targets recorded. Patient InstructionsNo instructions recorded. Reason for Referral None Reported. Results Created Date Observation Date Name Description Value Unit Range Abnormal Flag Note LastModifiedBy Organization Detail LastModifiedTime 12/16/1912/16/2023 lab* No observ ation record ed. [address] [address], [place], [address], 12/18/2023 08:01:33 12/16/19 24 12/16/2023 lab* No observ ation record ed. [address] [address], [place], [address], 12/18/2023 08:01:39 12/16/1912/16/2023 lab* No observ ation record ed. [address], [address], 12/18/2023 08:01:46 12/17/19 24 12/16/2023 lab* No observ ation record ed. [address], [address], 12/18/2023 08:01:52 12/17/1912/17/2023 lab* No observ ation record ed. [address] [address], [place], [address], 12/18/2023 08:01:58 12/18/1912/18/2023 CT, elbow , w/o contr ast No observ ation record ed. [address], [address], 12/19/2023 11:32:05 12/20/1912/20/2023 lab* No observ ation record ed. [address], [address], 12/24/2023 13:07:32 12/20/19 24 12/20/2023 lab* No observ ation record ed. [email or web address], [place], [address], 12/24/2023 13:07:25 12/20/19 24 12/20/2023 lab* No observ ation record ed. [email or web address], [place], [address], 12/24/2023 13:07:10 03/30/20 24 03/30/2024 CT, chest , w/ contr ast No observ ation record ed. [address], [place], [address], 03/30/2024 17:40:32 04/01/19 25 04/01/2024 XR, chest , 2 view No observ ation record ed. [address], [place], [address], 04/02/2024 08:12:04 04/01/19 25 04/01/2024 CT, chest , w/ contr ast No observ ation record ed. [address], [place], [address], 04/02/2024 08:13:24 04/02/19 25 04/02/2024 trans -thor acic echoc ardio gram (TTE) (PROC ) No observ ation record ed. [address], [place], [address], 04/06/2024 17:18:56 Result Notes None recorded. Problems Name Problem SNOMED Code Status Onset Date Resolution Date Notes Provider Name and Address Organization Details Recorded Time Essential ZummZumm n 21386141 Active 2021 JARED LOCKHART Attn: Zeb rees,[address] [facility], [place], [address], [facility] - [facility] 15:26:15 Obesity 886226421 Active 2021 JARED LOCKHART Attn: Accountin g,[address] [facility], [place], [address], [place] - [facility] 2 15:26:17 Prediabetes 823614539 Active 2021 JARED LOCKHART Attn: Accountin g,[address] [facility], [place], [address], [place] [facility] 2 15:26:18 Smoker 21438074 Active 2021 JARED LOCKHART Attn: Accountin g,[address] [facility], [place], [address], [place] [facility] 2 15:26:20 Chronic obstructive pulmonary disease 44759100 Active 2021 JARED LOCKHART Attn: Accountin g,[address] [facility], [place], [address], [place] [facility] 2 15:26:21 Hypercalcem ia 85212473 Active 2021 JARED LOCKHART Attn: Accountin g,[address] [facility], [place], [address], [place] [facility] 2 09:44:58 Neck pain 93850619 Active 2021 JARED LOCKHART Attn: Accountin g,[address] [facility], [place], [address], [place] [facility] 2 09:45:00 Anxiety 60383167 Active 2021 JARED LOCKHART Attn: Accountin g,[address] [facility], [place], [address], [place] [facility] 2 09:45:01 Thoracic back pain 171998819 Active 2021 JARED LOCKHART Attn: Accountin g,[address] [facility], [place], [address], [place] [facility] 2 09:45:02 Screening for malignant neoplasm of respiratory tract Active 2021 JARED LOCKHART Attn: Zeb rees,[address], [place], [address], [place] [facility] 2 09:45:05 Dyspnea on exertion 45827953 Active 2022 JARED LOCKHART Attn: Zeb g,[address], [place], [address], [place] [facility] 3 13:24:31 Degeneratio n of lumbar interverteb ral disc 37470564 Active 2022 JARED LOCKHART Attn: Accountluis fernando g,[address], [place], [address], [place] [facility] 3 14:12:31 Degeneratio n of cervical interverteb ral disc 23757911 Active 2022 JARED LOCKHART Attn: Zeb rees,[address] [facility], [place], [address], [place] [facility] 3 09:37:49 Morbid obesity 522939291 Active 2022 JARED LOCKHART Attn: Accountluis fernando rees,[address] [facility], [place], [address], [place] [facility] 3 12:53:33 Sleep apnea 08248769 Active 2022 JARED LOCKHART Attn: Zeb rees,[address] [facility], [place], [address], [place] [facility] 3 13:21:37 Non-small cell lung cancer 336024190 Active 2023 JARED LOCKHART Attn: Accountluis fernando g,[address] [facility], [place], [address], [place] [facility] 4 16:00:44 Dyspnea 784074407 Active 2023 JARED LOCKHART Attn: Accountluis fernando g,[address] [facility], [place], [address], [place] [facility] 4 13:10:35 Closed fracture of right elbow 7697197218048 9103 Active 2023 JARED LOCKHART Attn: Zeb rees,[address] [facility], [place], [address], [facility] - [facility] 4 13:10:39 Problem Notes None recorded. Medical Equipment None Reported. Allergies Allergen ID Allergen Name Allergen Category Reaction Reaction Severity Criticality Documentation Date Start Date Code Code System Note Provider Name and Address Organization Details Recorded Time 517473 Zoloft medicatio n rash Not available Not available 04/22/2018 46918 RxNorm Sherry Ríos MA [facility], [place] - [facility] 9 15:48:42 Medications Name Sig Start Date Stop Date Status Note LastModified by Organization Details LastModified Time dicloxacill in 500 mg capsule TAKE 1 CAPSULE BY MOUTH EVERY 6 HOURS FOR 10 DAYS 01/12 completed Not Available Not Available Not Available buspirone 5 mg tablet active Not Available Not Available No t Available ipratropium 0.5 mg-albutero l 3 mg (2.5 mg base)/3 mL nebulizatio n soln USE 3 ML VIA NEBULIZER EVERY 6 HOURS NEEDED FOR SHORTNESS OF BREATH OR WHEEZING active Not Available Not Available No t Available albuterol sulfate 2.5 mg/3 mL (0.083 %) solution for nebulizatio n USE 3 ML VIA NEBULIZER THREE TIMES DAILY active Not Available Not Available No t Available meloxicam 15 mg tablet Take 1 tablet every day by oral route. 06/14 completed Not Available Not Available Not Available ondansetron HCl 4 mg tablet TAKE 1 TABLET BY MOUTH TWICE DAILY FOR 5 DAYS active Not Available Not Available No t Available prednisone 20 mg tablet TAKE 2 TABLETS BY MOUTH DAILY AT 8 AM FOR 7 DAYS 01/12 completed Not Available Not Available Not Available acetaminoph en 300 mg-codeine 30 mg tablet Take 1 tablet every 6 hours by oral route as needed. 06/14 completed Not Available Not Available Not Available tramadol 50 mg tablet TAKE 1 TABLET BY MOUTH EVERY 12 HOURS BEFORE THE SCAN AND THEN 3 HOURS BEFORE THE SCAN 01/12 completed Not Available Not Available Not Available acetaminoph en 500 mg tablet TAKE 2 TABLETS BY MOUTH EVERY 6 HOURS NEEDED FOR PAIN active Not Available Not Available No t Available alprazolam 0.25 mg tablet TAKE 1 TABLET BY MOUTH THREE TIMES DAILY NEEDED FOR ANXIETY active Not Available Not Available No t Available doxycycline monohydrate 100 mg capsule TAKE 1 CAPSULE BY MOUTH TWICE DAILY 01/12 completed Not Available Not Available Not Available prednisone 50 mg tablet TAKE 1 TABLET BY MOUTH DAILY 11/17 completed Not Available Not Available Not Available metoprolol tartrate 50 mg tablet TAKE 1 TABLET BY MOUTH TWICE DAILY active Not Available Not Available No t Available nicotine 21 mg/24 hr daily transdermal patch APPLY 1 PATCH TOPICALLY TO THE SKIN EVERY DAY active Not Available Not Available No t Available Valtrex 1 gram tablet Take 1 tablet every 12 hours by oral route. 06/14 completed Not Available Not Available Not Available buspirone 7.5 mg tablet 04/22 completed Not Available Not Available Not Available ibuprofen 600 mg tablet TAKE 1 TABLET BY MOUTH THREE TIMES DAILY NEEDED FOR PAIN active Not Available Not Available No t Available albuterol sulfate HFA 90 mcg/actuati on aerosol inhaler INHALE 2 PUFFS BY MOUTH FOUR TIMES DAILY NEEDED active Not Available Not Available No t Available losartan 100 mg tablet TAKE 1 TABLET BY MOUTH DAILY active Not Available Not Available No t Available nortriptyli ne 50 mg capsule TAKE 1 CAPSULE BY MOUTH DAILY active Not Available Not Available No t Available amoxicillin 875 mg-potassiu m clavulanate 125 mg tablet 01/12 completed Not Available Not Available Not Available tiotropium bromide 18 mcg capsule with inhalation device INHALE THE CONTENTS OF 1 CAPSULE VIA INHALATIO N DEVICE EVERY DAY 12/26 completed Not Available Not Available Not Available eszopiclone 2 mg tablet TAKE 1 TABLET BY MOUTH AT SLEEP LAB active Not Available Not Available No t Available budesonide- formoterol HFA 160 mcg-4.5 mcg/actuati on aerosol inhaler INHALE 2 PUFFS BY MOUTH TWICE DAILY active Not Available Not Available No t Available Vios Aerosol Delivery System USE DIRECTED active Not Available Not Available No t Available Victoza 2-Hong 0.6 mg/0.1 mL (18 mg/3 mL) subcutaneou s pen injector INJECT 1.2 MG UNDER THE SKIN EVERY DAY 06/02 completed Not Available Not Available Not Available Spiriva Respimat 2.5 mcg/actuati on solution for inhalation INHALE 2 PUFFS BY MOUTH DAILY active Not Available Not Available No t Available TRUEplus Pen Needle 31 gauge x /16 USE TO INJECT VICTOZA EVERY DAY active Not Available Not Available No t Available Ozempic 0.25 mg or 0.5 mg (2 mg/1.5 mL) subcutaneou s pen injector Inject 0.5 mg every week by subcutane ous route. 11/17 completed Not Available Not Available Not Available Ozempic 1 mg/dose (4 mg/3 mL) subcutaneou s pen injector INJECT 1MG SUBCUTANE OUSLY EVERY WEEK 03/18 completed Not Available Not Available Not Available Ozempic 2 mg/dose (8 mg/3 mL) subcutaneou s pen injector 2023 active Not Available Not Available Not Avai lable Ozempic 0.25 mg or 0.5 mg (2 mg/3 mL) subcutaneou s pen injector INJECT 0.5 MG SUBCUTANE OUS EVERY WEEK 11/17 completed Not Available Not Available Not Available Zepbound 5 mg/0.5 mL subcutaneou s pen injector Inject by subcutane ous route for 28 days. 11/17 completed Not Available Not Available Not Available Zepbound 2.5 mg/0.5 mL subcutaneou s pen injector ADMINISTE R 2.5 MG UNDER THE SKIN EVERY WEEK 11/17 completed Not Available Not Available Not Available Vitals Date Recorded Body height Body mass index (BMI) Body weight Oxygen saturation Oxygen saturation in Arterial blood by Pulse oximetry Systolic blood pressure Diastolic blood pressure Provider Name and Address Organization Details Last Updated DateTime 4 152.4 cm 41.3 kg/m2 27626.3 9 g 98 % 98 % 105 mm[Hg] 73 mm[Hg] Idalia Guillermo [place] 4 14:01:51 Date Recorded Heart rate Provider Name an d Address Organization Details Last Updated DateTime 01/13/2024 60 /min Ora LOCKHART Attn: Accounting,[address] [place], [address], [place] - [facility] 01/13/2024 14:13:18 Social History Question Answer Notes LastModified by Organizat ion Details LastModified Time Tobacco Smoking Status Former Smoker quit 2023 JARED LOCKHART Attn: Accounting,[address] , [place], [address], [facility] - [place] 01/13/2024 14:04:02 What Is Your Level Of Alcohol Consumption? Occasional Information not available 06/15/2019 What Is Your Level Of Caffeine Consumption? None Information not available 06/15/2019 How Much Tobacco Do You Chew? None Information not available 06/15/2019 In The 14 Days Before Symptom Onset, Have You Had Close Contact With A Laboratory-confir med COVID-19 While That Case Was Ill? No Information not available 01/21/2020 In The 14 Days Before Symptom Onset, Have You Had Close Contact With A Person Who Is Under Investigation For COVID-19 While That Person Was Ill? No [email or web address] Information not available 01/21/2020 Have You Been To An Area Known To Be High Risk For COVID-19? No [email or web address] Information not available 01/21/2020 What Type Of Diet Are You Following? REGULAR [email or web address] Information not available 01/21/2020 Which Illicit Or Recreational Drugs Have You Used? None Information not available 06/15/2019 Do You Or Have You Ever Used E-cigarettes Or Vape? Never Used Electronic Cigarettes Information not available 06/15/2019 Education 12 [email or web address] Information no t available 01/21/2020 What Is Your Occupation? [employer] [email or web address] Information not available 01/21/2020 Are There Any Guns Present In Your Home? No Information not available 01/21/2020 Marital Status [email or web address] Informatio n not available 01/21/2020 What Was The Date Of Your Most Recent Tobacco Screening? 11/18/2023 Information not available 11/18/2023 Performs Monthly Self-breast Exam? Yes [email or web address] Information no t available 01/21/2020 Seat Belts Used Routinely Yes [email or web address] Information not available 01/21/2020 Smoke Alarm In Home Yes [email or web address] Information not available 01/21/2020 Do You Have Smoke And Carbon Monoxide Detectors In Your Home? Yes Information not available 06/21/2021 At What Age Did You Start Smoking Tobacco? 17 Information not available 06/15/2019 Are You Passively Exposed To Smoke? No Information no t available 06/21/2021 Do You Or Have You Ever Used Smokeless Tobacco? Never Used Smokeless Tobacco Information not available 06/15/2019 How Much Tobacco Do You Smoke? 0.5 PPD Information not available 06/15/2019 Do You Use Sunscreen Routinely? Yes [email or web address] Information not available 01/21/2020 Has Tobacco Cessation Counseling Been Provided? Yes [email or web address] Information not available 09/14/2018 On What Date Was Tobacco Cessation Counseling Provided? 11/18/2023 Information not available 11/18/2023 How Many Years Have You Smoked Tobacco? 21 Information not available 06/15/2019 Sex: Female Functional Status Question Answer Note LastModified by Organization D etails LastModified Time What is your exercise level? None [email or web address] Information not available 01/21/2020 Mental Status None recorded. Family History Relationship Description Onset Age of this Age Resolved Age Notes LastModified by Organization Details LastModified Time Mother Diabetes mellitus [email or web address] Not available 04/02 15:49:06 Mother Hypertensive disorder [email or web address] Not available 04/02 15:49:27 Father Hypertensive disorder [email or web address] Not available 04/02 15:49:27 Brother Hypertensive disorder [email or web address] Not available 04/02 15:49:27 Maternal Aunt Malignant tumor of breast 70 Not available 2021 14:10:48 Medical History Condition Response Coronary Artery Disease N Other N High Blood Pressure Y Atrial Fibrillation N Thyroid Problems N Kidney or Bladder Problems N GI Problems N Depression N COPD Y Blood Clots N Skin Problems N Eating Disorder N Anemia N Heart Attack ([place]) N Diabetes N Anxiety Disorder Y Muscle, Joint, or Bone Problems Y Seizures/Epilepsy N Acid Reflux (GERD) N Cancer N Stroke N Asthma N Allergies Y ADHD N Substance Abuse N High Cholesterol N Hepatitis N Liver Disease N Schizophrenia N Headaches N Osteoporosis N Heart Failure N Gynecological HistoryNo gynecological history recorded. Obstetrics History GPAL:G 0 P 0 0 0 0 Immunizations Vaccine Type Date Status Note Provider Nam e and Address Organization Details Recorded Time Influenza, recombinant, quadrivalent, PF 2 completed Id[place] Romeoza null, [place] - [facility] 06/06/2022 14:15:31 COVID-19 vaccine, vector-nr, rS-Ad26, PF, 0.5 mL 1 completed [place] Gu[place], [place] [facility] 06/06/2022 14:16:02 Tdap 8 completed [place] Gu[place], [place] [facility] 06/06/2022 14:16:19 Pneumococcal conjugate PCV20, polysaccharide [id number] conjugate, adjuvant, PF 3 completed JARED LOCKHART Attn: Accounting,[address] [place], [address], [place] [facility] 06/19/2022 13:21:40 Influenza, high-dose, trivalent, PF 4 completed JARED LOCKHART Attn: Accounting,[address] [place], [address], [place] [facility] 01/13/2024 14:31:27 Past Encounters Encounter ID Performer Location Encounter Start Date Encounter Closed Date Diagnosis/Indication Diagnosis SNOMED-CT Code Diagnosis ICD10 Code Diagnosis Note [id number] JARED LOCKHART [facility] [address] [place] [address] 12/16/2023 12:34:09 12/16/2023 13:43:37 Closed fracture of right elbow 8430082780 3474085 S42.401K Right elbow pain 12/06/2023. xray shows soft tissue swelling posterior to the olecranon and proximal ulna (could be olecranon bursitis). small chronic nonuinted fracture with corticated margins at tip of coronoid process. Dyspnea 164541216 R06.00 02 stats 76% in office and c/o of worsening sob. need to r/o PE due to new lung cancer b COPD exacerbati on.sent to hospital, reluctant but agrees.did not accept ambulance ride. going to [place] in personal car.PEX: decreased breath sounds LLQ. no wheezing. decreased air movement on expiration all lung bases. b/l palms erythemato us. [id number] JARED LOCKHART [facility] [address] [place] [address] 01/13/2024 13:50:19 01/13/2024 14:37:53 Sleep apnea 28729181 G47.30 BMI 41.3, htn, snoring, apnea, days time somnolence , COPD.- sleep study Morbid obesity 067683967 E66.01 BMI 41.3 on ozempic 2 mg and will increase today. she denies any side effects.no weight lossadvise d stop buying sweets for homeshe is given a list of nutrition goals for each day including protein and veggies servingssh e verbalizes understand ing that if she does not sustain enough protein she will lose muscle mass Moderate p ersistent asthma 641965951 J45.40 refill Administra tion of influenza vaccine 38248982 Z23 Health Concerns Section Related Observation LastModified by Organization Detai ls LastModified Time None Recorded Concern Status LastModified by Organization Details LastModified Time None Recorded Payers Encounter Date Sequence Insurance Name Policy Number Policy Villegas Covered Member ID Villegas Member ID Guarantor Name 01/13/2024 1 [place] Sherri Ramirez [id number] Sherri Ramirez 01/13/2024 2 [place]CON[place] WHEN MEDICARE OR MEDICARE REPLACEMENT PRIMARY) Sherri Ramirez [id number] Sherri Ramirez Notes Date Note Type Note Provider Name and Address Organization Details Recorded Time 01/13/2024 text/html here for ER F/U Patient was sent to hospital from this office at last visit due to low 02 stats, She was treated for exacerbation. per ER note requires 3L of 02 with activity. For her lung cancer she has had 2 radiation tx and has one tomorrow 01/14/2024. Will see Dr Lr in january. Pulm rehab referral sent by pulm. 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 JARED LOCKHART Attn: Accounting,[address] [facility], [place], [address], [place] [facility] 01/13/2024 14:32:30 OBGyn Episode No OBEpisode recorded.
--- OUTSIDE RECORDS SUMMARY | 2024-04-08 06:47 | XMS_ITS | Data Portability ---
Author Organization [facility] Kassandra [facility] Address [address] [place] [address] Care Team Providers Care Commissioning Manager Name Role Phone MARK CASEY Primary Care Provider [phone] Assessment Encounter Date Assessment Date Assessment LastModified by Organization Details LastModified Time 11/18/2023 11/18/2023 declines colon test and pap (11/18/2023) Not available 11/18/2023 16:03:40 01/13/2024 01/13/2024 declines cervical, colon and breast screenings Not available 01/13/2024 14:31:06 Plan of Treatment Reminders Order Date Submit Date Provider Last Modified By Organization Details Last Modified Time Details Appointments ANY 15 2024 01:00P M JARED LOCKHART Not available Not available Not available Lab None recorded. Referral orthopedi c surgeon referral - Right elbow pain 12/06/2023. xray shows soft tissue swelling posterior to the olecranon and proximal ulna (could be olecranon bursitis) . small chronic nonuinted fracture with corticate d margins at tip of coronoid process. 2023 024 LAYNE Stockton, [address] [facility], [address], [place], [address], 12/23/2023 11:05:21 Procedures polysomno graphy, split night (PROC) [address], [address] [place] [address] [address], [place], [address], 03/10/2024 08:02:56 Surgeries None recorded. Imaging None recorded. Medication Orders Ozempic 1 mg/dose (4 mg/3 mL) subcutane ous pen injector 2023 024 [facility] #[id number], [address], [place], [place], [id number], 03/18/2024 16:08:18 Spiriva Respimat 2.5 mcg/actua tion solution for inhalatio n 2023 024 [facility] #21466, [address], [place], [place], [id number], 11/18/2023 14:31:00 Ozempic 2 mg/dose (8 mg/3 mL) subcutane ous pen injector 2023 024 [facility] [employer] #[id number], [address], [place], [place], [id number], 01/13/2024 14:32:00 albuterol sulfate HFA 90 mcg/actua tion aerosol inhaler 2023 024 [facility] #[id number], [address], [place], [place], [id number], 01/13/2024 14:33:34 Patient TargetsNo targets recorded. Patient InstructionsNo instructions recorded. Reason for Referral Orthopedic Surgeon Referral for Closed fracture of right elbow Right elbow pain 12/06/2023. xray shows soft tissue swelling posterior to the olecranon and proximal ulna (could be olecranon bursitis). small chronic nonuinted fracture with corticated margins at tip of coronoid process. Referring Physician: Mark Casey, Buttonhole Marker, Encounter Date: 12/16/2023 Results Created Date Observation Date Name Description Value Unit Range Abnormal Flag Note LastModifiedBy Organization Detail LastModifiedTime 07/04/2023 COLOG UARD cologuard result Cancel led - Order d not applic able Not Available [facility] (Cologuard Orders Only) [address], [place], [address], 07/04/2023 10:40:37 07/09/19 24 07/16/2023 TSH+F REE T4 TSH 1.780 uIU/m L 0.450- 4.500 Not Available [facility] ([facility]) [address] [facility], [place], [address], 07/16/2023 11:14:15 07/09/19 24 07/16/2023 TSH+F REE T4 T4,free(dire ct) 1.21 NG/dL 0.82-1 .77 Not Available [facility] ([facility]) [address] [facility], [place], [address], 07/16/2023 11:14:15 07/09/19 24 07/16/2023 HEMOG LOBIN A1C hemoglobin A1C 5.8 % 4.8-5. 6 above high normal Predi abete s: 5.7 - 6.4 Diabe sky: >6.4 Glyce dung contr ol for adult s with diabe sky: <7.0 Not Available [facility] ([facility]) [address] [facility], [place], [address], 07/16/2023 11:14:15 07/09/19 24 07/16/2023 VITAM IN D, 25-HY DROXY vitamin D, 25-hydroxy 60.1 NG/mL 30.0-1 00.0 Vitam in D defic iency has been defin ed by the Insti tute of Medic ine and an Endoc rine Socie ty pract ice guide line as a level of serum 25-OH vitam in D less than 20 ng/mL (1,2) . The Endoc rine Socie ty went on to furth er defin e vitam in D insuf ficie ncy as a level betwe en 21 and 29 ng/mL (2). 1. IOM (Inst itute of Medic ine). 2010. Dieta ry refer ence juana es for calci um and D. Georgiana trevino [place]: The [facility] Press . 2. Cory king [place], Herrera sheriff [place], Amber off-F errwagner i [place]EEFE, et al. Evalu ation , treat ment, and preve ntion of vitam in D defic iency : an Endoc rine Socie ty clini marie pract ice guide line. JCEM. 2010; 96(7) :1911 -30. Not Available [facility] ([facility]) [address], [place], [address], 07/16/2023 11:14:16 09/14/19 24 09/14/2023 XR, chest , 2 view No observ ation record ed. [address] [address], [place], [address], 09/16/2023 11:29:31 09/14/19 24 09/14/2023 imagi ng/di agnos tic resul t No observ ation record ed. [address] [address], [place], [address], 09/18/2023 10:50:42 10/08/19 24 10/08/2023 PET-C T, skull base to mid-t high scan No observ ation record ed. [address] [address], [place], [address], 10/21/2023 11:58:40 10/21/19 24 10/21/2023 XR, chest , 2 view No observ ation record ed. [address] [address], [place], [address], 10/21/2023 13:55:32 10/21/19 24 10/21/2023 XR, chest , 2 view No observ ation record ed. [address] [address], [place], [address], 10/21/2023 13:55:23 10/21/19 24 10/21/2023 imagi ng/di agnos tic resul t No observ ation record ed. [email or web address] [place] [address], [place], [address], 10/22/2023 11:00:08 10/21/19 24 10/21/2023 XR, chest , 1 view No observ ation record ed. [address], [place], [address], 10/22/2023 10:59:27 11/06/19 24 11/06/2023 PFT, compl ete No observ ation record ed. [address] [address], [place], [address], 11/07/2023 10:19:59 11/21/19 24 11/06/2023 6 minut e walk test* No observ ation record ed. [address] [address], [place], [address], 11/21/2023 13:03:43 12/05/19 24 12/05/2023 NM, bone scan, whole body No observ ation record ed. [address] [address], [place], [address], 12/09/2023 14:47:11 12/06/19 24 12/06/2023 XR, elbow , 3 or more view No observ ation record ed. [address] [address], [place], [address], 12/09/2023 15:07:03 12/16/19 24 12/16/2023 lab* No observ ation record ed. [email or web address] [address], [place], [address], 12/18/2023 08:01:33 12/16/19 24 12/16/2023 lab* No observ ation record ed. [email or web address] [address], [place], [address], 12/18/2023 08:01:39 12/16/19 24 12/16/2023 lab* No observ ation record ed. [email or web address] [address], [place], [address], 12/18/2023 08:01:46 12/17/19 24 12/16/2023 lab* No observ ation record ed. [email or web address], [address], 12/18/2023 08:01:52 12/17/19 24 12/17/2023 lab* No observ ation record ed. [email or web address] [address], [place], [address], 12/18/2023 08:01:58 12/18/1912/18/2023 CT, elbow , w/o contr ast No observ ation record ed. [address], [address], 12/19/2023 11:32:05 12/20/19 24 12/20/2023 lab* No observ ation record ed. [email or web address], [address], 12/24/2023 13:07:32 12/20/19 24 12/20/2023 lab* No observ ation record ed. [email or web address], [address], 12/24/2023 13:07:25 12/20/19 24 12/20/2023 lab* No observ ation record ed. [email or web address], [address], 12/24/2023 13:07:10 03/30/20 24 03/30/2024 CT, chest , w/ contr ast No observ ation record ed. [address], [address], 03/30/2024 17:40:32 04/01/19 25 04/01/2024 XR, chest , 2 view No observ ation record ed. [id number], [place], [address], 04/02/2024 08:12:04 04/01/19 25 04/01/2024 CT, chest , w/ contr ast No observ ation record ed. [address] [facility] [address], [place], [address], 04/02/2024 08:13:24 04/02/19 25 04/02/2024 trans -thor acic echoc ardio gram (TTE) (PROC ) No observ ation record ed. [id number] [facility] [address], [place], [address], 04/06/2024 17:18:56 Result Notes None recorded. Problems Name Problem SNOMED Code Status Onset Date Resolution Date Notes Provider Name and Address Organization Details Recorded Time Essential hypertensio n 12565921 Active 2021 JARED LOCKHART Attn: Accountin g,[address] [facility], [place], [address], [place] [facility] 2 15:26:15 Obesity 264292069 Active 2021 JARED LOCKHART Attn: Accountin g,[address] [facility], [place], [address], [place] [facility] 2 15:26:17 Prediabetes 123922257 Active 2021 JARED LOCKHART Attn: Accountin g,[address], [place], [address], [place] [facility] 2 15:26:18 Smoker 52536055 Active 2021 JARED LOCKHART Attn: Accountin g,[address] [facility], [place], [address], [place] [facility] 2 15:26:20 Chronic obstructive pulmonary disease 55152823 Active 2021 JARED LOCKHART Attn: Accountin g,[address] [facility], [place], [address], [place] [facility] 2 15:26:21 Hypercalcem ia 67132417 Active 2021 JARED LOCKHART Attn: Accountin g,[address] [facility], [place], [address], [place] [facility] 2 09:44:58 Neck pain 96865795 Active 2021 JARED LOCKHART Attn: Accountin g,[address] [facility], [place], [address], [place] [facility] 2 09:45:00 Anxiety 76815671 Active 2021 JARED LOCKHART Attn: Accountin g,[address] [facility], [place], [address], [place] [facility] 2 09:45:01 Thoracic back pain 566482691 Active 2021 JARED LOCKHART Attn: Accountin g,[address] [facility], [place], [address], [place] [facility] 2 09:45:02 Screening for malignant neoplasm of respiratory tract Active 2021 JARED LOCKHART Attn: Accountin g,[address] [facility], [place], [address], [place] [facility] 2 09:45:05 Dyspnea on exertion 98831722 Active 2022 JARED LOCKHART Attn: Accountin g,[address] [facility], [place], [address], [place] [facility] 3 13:24:31 Degeneratio n of lumbar interverteb ral disc 66579988 Active 2022 JARED LOCKHART Attn: Accountin g,[address] [facility], [place], [address], [place] [facility] 3 14:12:31 Degeneratio n of cervical interverteb ral disc 41883628 Active 2022 JARED LOCKHART Attn: Zeb rees,[address], [place], [address], [place] [facility] 3 09:37:49 Morbid obesity 967633675 Active 2022 JARED LOCKHART Attn: Zeb rees,[address], [place], [address], [place] [facility] 3 12:53:33 Sleep apnea 35146668 Active 2022 JARED LOCKHART Attn: Zeb rees,[address], [place], [address], [place] [facility] 3 13:21:37 Non-small cell lung cancer 063846887 Active 2023 JARED LOCKHART Attn: Zeb rees,[address], [place], [address], [place] [facility] 4 16:00:44 Dyspnea 309180111 Active 2023 JARED LOCKHART Attn: Zeb rees,[address], [place], [address], [place] [facility] 4 13:10:35 Closed fracture of right elbow 4203473726617 9103 Active 2023 JARED LOCKHART Attn: Zeb rees,[address] [facility], [place], [address], [place] [facility] 4 13:10:39 Problem Notes None recorded. Procedures Surgical History None recorded. Imaging Results Imaging Date Name Status LastModified by Organization Details LastModified Time 09/14/2023 XR, chest, 2 view completed [address] [place] [address], [address], 09/16/2023 11:29:31 09/14/2023 imaging/diagnostic result completed [address], [address], 09/18/2023 10:50:42 10/08/2023 PET-CT, skull base to mid-thigh scan completed [address], [place], [address], 10/21/2023 11:58:40 10/21/2023 XR, chest, 2 view completed [address], [place], [address], 10/21/2023 13:55:32 10/21/2023 XR, chest, 2 view completed [address] [address], [place], [address], 10/21/2023 13:55:23 10/21/2023 imaging/diagnostic result completed [address] [address], [place], [address], 10/22/2023 11:00:08 10/21/2023 XR, chest, 1 view completed [address], [place], [address], 10/22/2023 10:59:27 11/06/2023 PFT, complete completed [address], [place], [address], 11/07/2023 10:19:59 11/06/2023 6 minute walk test* completed [address] [address], [place], [address], 11/21/2023 13:03:43 12/05/2023 NM, bone scan, whole body completed [address] [address], [place], [address], 12/09/2023 14:47:11 12/06/2023 XR, elbow, 3 or more view completed [address], [place], [address], 12/09/2023 15:07:03 12/16/2023 lab* completed [address], [place], [address], 12/18/2023 08:01:33 12/16/2023 lab* completed [address], [place], [address], 12/18/2023 08:01:39 12/16/2023 lab* completed [address], [place], [address], 12/18/2023 08:01:46 12/16/2023 lab* completed [address] [address], [place], [address], 12/18/2023 08:01:52 12/17/2023 lab* completed [address] [address], [place], [address], 12/18/2023 08:01:58 12/18/2023 CT, elbow, w/o contrast completed [address] [address], [place], [address], 12/19/2023 11:32:05 12/20/2023 lab* completed [address] [address], [place], [address], 12/24/2023 13:07:32 12/20/2023 lab* completed [address], [address], 12/24/2023 13:07:25 12/20/2023 lab* completed [address] [address], [place], [address], 12/24/2023 13:07:10 03/30/2024 CT, chest, w/ contrast completed [address], [address], 03/30/2024 17:40:32 04/01/2024 XR, chest, 2 view completed [address], [address], 04/02/2024 08:12:04 04/01/2024 CT, chest, w/ contrast completed [address], [address], 04/02/2024 08:13:24 04/02/2024 trans-thoracic echocardiogram (TTE) (PROC) completed [address], [address], 04/06/2024 17:18:56 Procedure Notes None recorded. Medical Equipment None Reported. Allergies Allergen ID Allergen Name Allergen Category Reaction Reaction Severity Criticality Documentation Date Start Date Code Code System Note Provider Name and Address Organization Details Recorded Time 026261 Zoloft medicatio n rash Not available Not available 04/22/2018 95610 RxNorm Sherry Ríos MA [facility], [place] - [facility] 9 15:48:42 Medications Name Sig Start Date [...] Available TRUEplus Pen Needle 31 gauge x 3/16 USE TO INJECT VICTOZA EVERY DAY active [...] height Body mass index (BMI) Body weight Heart rate Oxygen saturation Oxygen saturation in Arterial blood by Pulse oximetry Systolic blood pressure Diastolic blood pressure Provider Name and Address Organization Details Last Updated DateTime 4 152.4 cm 42.2 kg/m2 13582.9 5 g 74 /min 94 % 94 % 139 mm[Hg] 80 mm[Hg] Idalia Guillermo [facility] 14:01:50 Date Recorded Body height Body mass index (BMI) Body weight Oxygen saturation Oxygen saturation in Arterial blood by Pulse oximetry Heart rate Respiratory rate Systolic blood pressure Diastolic blood pressure Provider Name and Address Organization Details Last Updated DateTime 4 152.4 cm 42 kg/m2 12025.3 6 g 95 % 95 % 99 /min 20 /min 126 mm[Hg] 88 mm[Hg] Ember Long MA [facility] 17:06:04 Date Recorded Body height Body mass index (BMI) Body weight Heart rate Provider Name and Address Organization Details Last Updated DateTime 12/16/2023 152.4 cm 40.8 kg/m2 77712.81 g 64 /min Idalia Guillermo [facility] 12/16/2023 12:39:38 Date Recorded Oxygen saturation Oxygen saturation in Arterial blood by Pulse oximetry Provider Name and Address Organization Details Last Updated DateTime 12/16/2023 77 % 77 % JARED LOCKHART Attn: Accounting, [place], [address], [facility] 12/16/2023 13:07:02 Date Recorded Body height Body mass index (BMI) Body weight Oxygen saturation Oxygen saturation in Arterial blood by Pulse oximetry Systolic blood pressure Diastolic blood pressure Provider Name and Address Organization Details Last Updated DateTime 4 152.4 cm 41.3 kg/m2 21881.3 9 g 98 % 98 % 105 mm[Hg] 73 mm[Hg] Idalia Guillermo [facility] 14:01:51 Date Recorded Heart rate Provider Name an d Address Organization Details Last Updated DateTime 01/13/2024 60 /min Ora LOCKHART Attn: Accounting,[address] [place], [address], [facility] 01/13/2024 14:13:18 Social History Question Answer Notes LastModified by Organizat ion Details LastModified Time Tobacco Smoking Status Former Smoker quit 2023 JARED LOCKHART Attn: Accounting,[address] [place], [address], [facility] 01/13/2024 14:04:02 What Is Your Level Of Alcohol Consumption? Occasional Information not available 06/15/2019 What Is Your Level Of Caffeine Consumption? None Information not available 06/15/2019 How Much Tobacco Do You Chew? None Information not available 06/15/2019 In The 14 Days Before Symptom Onset, Have You Had Close Contact With A Laboratory-confir med COVID-19 While That Case Was Ill? No [email or web address] Information not available 01/21/2020 In The 14 Days Before Symptom Onset, Have You Had Close Contact With A Person Who Is Under Investigation For COVID-19 While That Person Was Ill? No [email or web address] Information not available 01/21/2020 Have You Been To An Area Known To Be High Risk For COVID-19? No Information not available 01/21/2020 What Type Of Diet Are You Following? REGULAR [email or web address] Information not available 01/21/2020 Which Illicit Or Recreational Drugs Have You Used? None Information not available 06/15/2019 Do You Or Have You Ever Used E-cigarettes Or Vape? Never Used Electronic Cigarettes Information not available 06/15/2019 Education 12 [email or web address] Information no t available 01/21/2020 What Is Your Occupation? [employer] [email or web address] Information not available 01/21/2020 Are There Any Guns Present In Your Home? No Information not available 01/21/2020 Marital Status Informatio n not available 01/21/2020 What Was The Date Of Your Most Recent Tobacco Screening? 11/18/2023 Information not available 11/18/2023 Performs Monthly Self-breast Exam? Yes Information no t available 01/21/2020 Seat Belts Used Routinely Yes [email or web address] Information not available 01/21/2020 Smoke Alarm In Home Yes [email or web address] Information not available 01/21/2020 Do You Have [...] 06/15/2019 Do You Use Sunscreen Routinely? Yes [email or web address] Information not available 01/21/2020 Has Tobacco Cessation Counseling Been Provided? Yes [email or web address] Information not available 09/14/2018 On What Date Was Tobacco Cessation Counseling Provided? 11/18/2023 Information not available 11/18/2023 How Many Years Have You Smoked Tobacco? 21 Information not available 06/15/2019 Sex: Female Functional Status Question Answer Note LastModified by Organization D etails LastModified Time What is your exercise level? None [email or web address] Information not available 01/21/2020 Mental Status None [...] Response Coronary Artery Disease N Other N Atrial Fibrillation N High Blood Pressure Y Thyroid Problems N Kidney or Bladder Problems N Depression N COPD Y Blood Clots N GI Problems N Skin Problems N Eating Disorder N Anemia N Heart Attack (NH) N Diabetes N Anxiety Disorder Y Muscle, Joint, or Bone Problems Y Seizures/Epilepsy N Acid Reflux (GERD) N Cancer N Stroke N Allergies Y Asthma N ADHD N Substance Abuse N High Cholesterol N Hepatitis N Liver Disease N Schizophrenia N Headaches N Osteoporosis N Heart Failure N Gynecological HistoryNo gynecological history recorded. Obstetrics History GPAL:G 0 P 0 0 0 0 Immunizations Vaccine Type Date Status Note Provider Nam e and Address Organization Details Recorded Time Influenza, recombinant, quadrivalent, PF 2 completed Idalia Guill[place], [place] [facility] 06/06/2022 14:15:31 COVID-19 vaccine, vector-nr, rS-Ad26, PF, 0.5 mL 1 completed [place] [facility] 06/06/2022 14:16:02 Tdap 8 completed Id[place] Gu[place] [facility] 06/06/2022 14:16:19 Pneumococcal conjugate PCV20, polysaccharide [id number] conjugate, adjuvant, PF 3 completed JAERD LOCKHART Attn: Accounting,[address] [place], [address], [place] [facility] 06/19/2022 13:21:40 Influenza, high-dose, trivalent, PF 4 completed JARED LOCKHART Attn: Accounting,[address] [place], [address], [place] [facility] 01/13/2024 14:31:27 Past Encounters Encounter ID Performer Location Encounter Start Date Encounter Closed Date Diagnosis/Indication Diagnosis SNOMED-CT Code Diagnosis ICD10 Code Diagnosis Note [id number] Melvina Reynolds MD [facility] [address] [place] [address] 04/22/2018 15:11:06 04/28/2018 09:29:29 Degenerative joint disease involving multiple joints 697654987 M15.9 Essential hypertension 38724961 I10 Standardiz ed adult depression screening tool completed 0152006762 42785 Z13.89 patient does not appear to be significan tly depressed. [id number] Melvina Reynolds MD [facility] [address] [place] [address] 09/05/2018 11:20:24 09/15/2018 09:59:27 Essential hypertension 71562275 I10 pt was also advised to quit smoking. Screening mammography 24 786433 Z12.31 Screening for malignant neoplasm of colon 664231366 Z12.11 Body mass index 30+ - obesity 317261996 Z68.39 discussed low fat, low carb diet, and encouraged exercise. Patient advised to limit salt and caffeine intake to maintain good blood pressure. [id number] Melvina Reynolds MD [facility] [address] [place] [address] 01/07/2019 15:10:07 01/12/2019 10:16:54 Herpes zoster 4404006 B02.9 [id number] Melvina Reynolds MD [facility] [address] [place] [address] 06/15/2019 15:10:54 06/29/2019 09:10:54 Moderate persistent asthma 839859813 J45.40 Essential hypertension 51240915 I10 pt was also advised to quit smoking. Moderate r ecurrent major depression 62859151 F33.1 Screening mammography 24 342694 Z12.31 Screening for malignant neoplasm of colon 814735347 Z12.11 [id number] Melvina Reynolds MD [facility] [address] [place] [address] 01/21/2020 16:01:28 01/22/2020 07:57:11 Pain in right knee 4577983297 23652 M25.561 may require knee surgery but would prefer to put it off for a while. Trying to give up smoking 871053902 Z72.0 encouraged her to stop smoking to decrease the risks of surgery [id number] JARED LOCKHART [facility] [address] [place] [address] 11/03/2020 12:07:58 11/14/2020 07:22:30 Essential hypertension 88115231 I10 patient will come by office for BP check. Advised to check BP regularly with a goal of <140/90, if BP consistent ly >140/90, advised to contact clinic Discussed DASH diet Advised weight loss and diet is best way to control BP Advised 30 minutes of exercise minimum daily Advised tobacco, alcohol, caffeine all increase BP Advised goal for BP is <140/90 Screening mammography 24 573204 Z12.31 Colonoscopy declined 666 7322543 37657 Z53.20 [id number] JARED LOCKHART [facility] [address] [place] [address] 06/21/2021 13:55:40 06/22/2021 08:33:21 Screening for malignant neoplasm of colon 263617773 Z12.11 patient has refused past colonoscop ies. denies family hx colon cancer, blood in stool, changes in BM. Agrees to cologuard. Chronic ob structive pulmonary disease 66422410 J44.9 Patient smoking 1/2 ppd. does not want to do PFT. She states she is controlled with current medication s. [place] not thought about quitting smoking. no one smokes at home with her. + for sob on walking 2-3 blocks. Decreased heart sounds and air movement on exam. - stop smoking, counseled today Smoker 40740496 F17.200 smoking 1/2 ppd Prediabetes 371249724 R7 3.03 5.9 last year. She eats high carb diet. +family history of DM. wakes up 2x per night to pee. denies increased urianation . - discussed healthy diet-void sugary sodas, sweets, and starchy foods like bread, rice, potatoes, noodles, and tortillas, we may be able to keep the blood sugar before the point where we say, yes, you have diabetes.- Exercise and weight loss can be very helpful. Obesity 229480405 E66.9 Essential hypertension 72176065 I10 patient will come by office for BP check. Advised to check BP regularly with a goal of <140/90, if BP consistent ly >140/90, advised to contact clinic Discussed DASH diet Advised weight loss and diet is best way to control BP Advised 30 minutes of exercise minimum daily Advised tobacco, alcohol, caffeine all increase BP Advised goal for BP is <140/90 [id number] JARED AVINA [facility] [address] [place] [address] 07/28/2021 08:08:48 07/31/2021 09:38:36 Cough 34249825 R05.1 PVproducti ve cough, sore throat, headache q1aatzyy alevevacci nated for COVID and flu, home COVID test is negativeno concerning sxc/w aleve for headache and sore throattria l coricidin cough and coldf/u in 5 days if sx don't improve - Drink lots of fluids, water, gatorade.- Run a cool-mist humidifier in your room at night.- For sore throat, gargle warm salt water.- Get extra rest and do not over-exert yourself.- Do not mix multiple medication s with similar ingredient s (for instance Theraflu Non-drowsy and Tylenol Sinus). Doubling up on acetaminop hen and/or decongesta nts such as pseudephed rine can be dangerous. - Robitussin DM at bed time only (if cough keeps you awake) (and if not or on SSRI antidepres sants. [id number] JARED LOCKHART [facility] [address] [place] [address] 01/29/2022 13:54:21 01/30/2022 12:20:23 Screening for malignant neoplasm of colon 204813870 Z12.11 patient has refused past colonoscop ies. denies family hx colon cancer, blood in stool, changes in BM. Agrees to cologuard. Chronic ob structive pulmonary disease 18500835 J44.9 Patient smoking 1 ppd. does not want to do PFT. She states she is controlled with current medication s. [place] not thought about quitting smoking. no one smokes at home with her. + for sob on walking 2-3 blocks. Decreased heart sounds and air movement on exam. - stop smoking, counseled today Smoker 63023791 F17.200 smoking 1ppd Prediabetes 930118283 R7 3.03 5.9 last year. She eats high carb diet. +family history of DM. wakes up 2x per night to pee. denies increased urianation . - discussed healthy diet-void sugary sodas, sweets, and starchy foods like bread, rice, potatoes, noodles, and tortillas, we may be able to keep the blood sugar before the point where we say, yes, you have diabetes.- Exercise and weight loss can be very helpful. Obesity 746259135 E66.9 Essential hypertension 53900453 I10 patient will come by office for BP check. Advised to check BP regularly with a goal of <140/90, if BP consistent ly >140/90, advised to contact clinic Discussed DASH diet Advised weight loss and diet is best way to control BP Advised 30 minutes of exercise minimum daily Advised tobacco, alcohol, caffeine all increase BP Advised goal for BP is <140/90 Screening for malignant neoplasm of respiratory tract 464777704 Z12.2 45 pack year smoking hx, smoking 1ppd currently. Sleep apnea 94798848 G47 .30 BMI 40.9, htn, snoring, apnea, days time somnolence , COPD.- sleep study Anxiety 46173192 F41.9 controlled . needs refill Neck pain 78301576 M54.2 cervical pain on palpation Thoracic back pain 42191 8004 M54.6 thoracic pain on palpation - obtain xray - Avoid heavy lifting and over-exert ion. - Avoid bed-rest ? do some gentle stretching and continue with normal activities . - Use ice to relieve pain, 15 minutes every 2 ? 4 hours. - Use heat to relax muscles, 15 minutes every 2 ? 4 hours. - Sleep on a firm surface and avoid lying on the sofa. Screening mammography 24 211486 Z12.31 Hypercalcemia 05013159 E 83.52 followed by endo. saw them 12/2021 and has f/u in 3 months. [id number] JARED LOCKHART [facility] [address] [place] [address] 06/06/2022 13:54:26 06/06/2022 14:40:17 Chronic obstructive pulmonary disease 14314730 J44.9 Patient smoking 1 ppd. does not want to do PFT. She states she is controlled with current medication s. [place] not thought about quitting smoking. no one smokes at home with her. + for sob on walking 2-3 blocks. Decreased heart sounds and air movement on exam. - stop smoking, counseled today Administra tion of pneumococcal vaccine 03663784 Z23 given today Muscle weakness 93526723 M62.81 weakness going up stairs. at risk for falls. agrees to PT. Prediabetes 533799310 R7 3.03 5.9 last year. She eats high carb diet. +family history of DM. wakes up 2x per night to pee. denies increased urianation . - discussed healthy diet-void sugary sodas, sweets, and starchy foods like bread, rice, potatoes, noodles, and tortillas, we may be able to keep the blood sugar before the point where we say, yes, you have diabetes.- Exercise and weight loss can be very helpful. Dyspnea on exertion 6084 5006 R06.09 declines PFTdecline s pulm referralde ni LDCT, I rather not know [id number] JARED LOCKHART [facility] [address] [place] [address] 07/04/2022 13:58:32 07/04/2022 15:10:06 Chronic obstructive pulmonary disease 61050837 J44.9 Patient smoking 1 ppd. does not want to do PFT. She states she is controlled with current medication s. [place] not thought about quitting smoking. no one smokes at home with her. + for sob on walking 2-3 blocks. Decreased heart sounds and air movement on exam. - stop smoking, counseled todayprevn ar 20.05/2022 Muscle weakness 14983836 M62.81 first PT session completed at [facility] an is 2x per week Prediabetes 607274724 R7 3.03 5.9 05/2022. She eats high carb diet. +family history of DM. wakes up 2x per night to pee. denies increased urination. - discussed healthy diet-void sugary sodas, sweets, and starchy foods like bread, rice, potatoes, noodles, and tortillas, we may be able to keep the blood sugar before the point where we say, yes, you have diabetes.- Exercise and weight loss can be very helpful. Dyspnea on exertion 6084 5006 R06.09 jermaine g PFTdecline s pulm referralde nies LDCT, I rather not know Screening for malignant neoplasm of colon 182900197 Z12.11 patient has refused past colonoscop ies. denies family hx colon cancer, blood in stool, changes in BM. Agrees to cologuard. Smoker 02703473 F17.200 smoking 1ppd Obesity 394964995 E66.9 Essential hypertension 95927132 I10 134/76 Advised to check BP regularly with a goal of <140/90, if BP consistent ly >140/90, advised to contact clinicDisc ussed DASH dietAdvise d weight loss and diet is best way to control BPAdvised 30 minutes of exercise minimum dailyAdvis ed tobacco, alcohol, caffeine all increase BPAdvised goal for BP is <140/90 Screening for malignant neoplasm of respiratory tract 629859598 Z12.2 45 pack year smoking hx, smoking 1ppd currently. - declines LDCT Sleep apnea 94018719 G47 .30 BMI 40.9, htn, snoring, apnea, days time somnolence , COPD.- sleep study Anxiety 47872917 F41.9 controlled . needs refill Neck pain 98268390 M54.2 cervical pain on palpation Screening mammography 24 248176 Z12.31 missed appointmen twill reschedule Hypercalcemia 22157739 E 83.52 followed by [facility]. saw them 12/2021 and has f/u in 3 months. HIV screening 752206627 Z11.4 Degenerati on of cervical intervertebral disc 83151726 M50.30 01/2022: severe disc disease in neck (C5-6, C6-7). Mild degernativ e disease in thoracic spine. sending to ortho [id number] Eden Verdin CMA [facility] [address] [place] [address] 07/05/2022 12:20:29 07/05/2022 12:51:23 [id number] JARED LOCKHART [facility] [address] [place] [address] 11/26/2022 12:19:34 11/27/2022 15:52:58 Chronic obstructive pulmonary disease 73356154 J44.9 Patient smoking 1 ppd. does not want to do PFT or LDCT. She states she is controlled with current medication s. [place] not thought about quitting smoking. no one smokes at home with her. + for sob on walking 2-3 blocks. Decreased heart sounds and air movement on exam. Per new [employer] will switch inhaler to spiriva and stop steroid. no hx of asthma.- stop smoking, counseled today- prevnar 20 given 05/2022 Prediabetes 144217706 R7 3.03 5.9 05/2022. She eats high carb diet. +family history of DM. wakes up 2x per night to pee. denies increased urination. - discussed healthy diet-void sugary sodas, sweets, and starchy foods like bread, rice, potatoes, noodles, and tortillas, we may be able to keep the blood sugar before the point where we say, yes, you have diabetes.- Exercise and weight loss can be very helpful. Dyspnea on exertion 6084 5006 R06.09 declines PFTdeclien s echodeclin es pulm referralde nies LDCT, I rather not know Smoker 77346371 F17.200 smoking 1ppddoes not want to quit Screening for malignant neoplasm of respiratory tract 185649468 Z12.2 45 pack year smoking hx, smoking 1ppd currently. - declines LDCT Screening mammography 24 236671 Z12.31 missed appointmen thas not reschedule dnew order Morbid obesity 770205989 E66.01 BMI 41.811 lb weight gain since 3Pati ent denies fam hx of thyroid cancer, personal hx pancreatit is. Medication side effects were reviewed with patient and include MIC, pancreatit is, nausea, vomiting, stomach upset. Patient was shown pen and was shown how to clean area, inject pen, and how often to administer . [id number] JARED LOCKHART [facility] [address] [place] [address] 06/03/2023 12:17:13 06/03/2023 13:00:52 Morbid obesity 831082747 E66.01 BMI 42. wants mounjaro/z epboundPat ient denies fam hx of thyroid cancer, personal hx pancreatit is. Medication side effects were reviewed with patient and include MIC, pancreatit is, nausea, vomiting, stomach upset. Patient was shown pen and was shown how to clean area, inject pen, and how often to administer . [id number] JARED LOCKHART [facility] [address] [place] [address] 2023 13:48:06 2023 14:30:21 Morbid obesity 728178419 E66.01 BMI 42.8 on epbound 2.5 and will increase today1 lb loss onlyadvise d stop buying sweets for homePatien t denies fam hx of thyroid cancer, personal hx pancreatit is. Medication side effects were reviewed with patient and include MIC, pancreatit is, nausea, vomiting, stomach upset. Patient was shown pen and was shown how to clean area, inject pen, and how often to administer . Adult heal th examination 432323501 Z00.00 here for labsincrea se zepboundst op sweetsdecl dilan all cancer screenings [id number] Ember Long MA [facility] [address] [place] [address] 07/15/2023 15:14:51 07/15/2023 15:24:54 [id number] JARED LOCKHART [facility] [address] [place] [address] 11/18/2023 13:45:23 11/18/2023 16:05:52 Chronic obstructive pulmonary disease 31142888 J44.9 Patient smoking 1 ppd. needs refills of spiriva (given by Dr Lr) and she did well but did not get refills. She will call her office today to make sure okay to continue taking this medication . Per new [employer] will switch inhaler to spiriva and stop steroid. no hx of asthma.- stop smoking, counseled today- prevnar 20 given 05/2022 Morbid obesity 153501193 E66.01 BMI 42.2 on ozempic .5 mg and will increase today. she denies any side effects.no weight lossadvise d stop buying sweets for homeshe is given a list of nutrition goals for each day including protein and veggies servingssh e verbalizes understand ing that if she does not sustain enough protein she will lose muscle mass Non-small cell lung cancer 898966224 C34.90 newly dx adenocarci noma of lung. undergoing evaluation to have surgery v radiationf ofelia montejo smoking, trying to quitsurgeo n: Dr Roberson m: Dr Lr [id number] JARED AVINA [facility] [address] [place] [address] 12/05/2023 17:03:12 12/05/2023 17:19:57 Bursitis of olecranon of right elbow 0476469599 27144 M70.21 x1 wk, increased swelling and redness to R elbowwent to Oncology appt yesterday, states that they imaged R arm and told her there were no blood clotsPEx- mild erythema, warmth, and edema to R olecranon, non-TTP, FROM of R elbow joint w/o pain, see pictures in chartrec'd elevating R arm at homeencour aged pt to go to ED for imaging and possible drainage of bursa, pt declinedst ates that she has radiation appt at [facility] tomorrow and will go to ED after appt [id number] JARED LOCKHART [facility] [address] [place] [address] 12/16/2023 12:34:09 12/16/2023 13:43:37 Closed fracture of right elbow 0005296930 3295196 S42.401K Right elbow pain 12/06/2023. xray shows soft tissue swelling posterior to the olecranon and proximal ulna (could be olecranon bursitis). small chronic nonuinted fracture with corticated margins at tip of coronoid process. Dyspnea 094817178 R06.00 02 stats 76% in office and c/o of worsening sob. need to r/o PE due to new lung cancer b COPD exacerbati on.sent to hospital, reluctant but agrees.did not accept ambulance ride. going to [facility] in personal car.PEX: decreased breath sounds LLQ. no wheezing. decreased air movement on expiration all lung bases. b/l palms erythemato us. [id number] JARED LOCKHART [facility] [address] [place] [address] 01/13/2024 13:50:19 01/13/2024 14:37:53 Sleep apnea 45889377 G47.30 BMI 41.3, htn, snoring, apnea, days time somnolence , COPD.- sleep study Morbid obesity 009309008 E66.01 BMI 41.3 on ozempic 2 mg and will increase today. she denies any side effects.no weight lossadvise d stop buying sweets for homeshe is given a list of nutrition goals for each day including protein and veggies bridget claudio verbalizes understand ing that if she does not sustain enough protein she will lose muscle mass Moderate p ersistent asthma 221229675 J45.40 refill Administra tion of influenza vaccine 34076148 Z23 Health Concerns Section Related Observation LastModified by Organization Detai ls LastModified Time None Recorded Concern Status LastModified by Organization Details LastModified Time None Recorded Advance Directives Directive None Recorded Payers Encounter Date Sequence Insurance Name Policy Number Policy Villegas Covered Member ID Villegas Member ID Guarantor Name 07/15/2023 1 [place] [employer] [place] [employer] Sherri James [id number] Sherri James 11/18/2023 1 [place] Sherri Ramirez [id number] Sherri Ramirez 12/05/2023 1 [place] Sherri Ramirez [id number] Sherri James 12/16/2023 1 [place] Sherri Jesus James [id number] Sherri Ramirez 12/16/2023 2 [place] OR MEDICARE REPLACEMENT PRIMARY) Sherri Jesus James [id number] Sherri Ramirez 01/13/2024 1 [place] Sherri Jesus James [id number] Sherri Ramirez 01/13/2024 2 [place]PLACEMENT [place]IMARY) Sherri Jesus Ramirez [id number] Sherri James Notes Date Note Type Note Provider Name and Address Organization Details Recorded Time 11/18/2023 text/html Here for lung ca ncer f/u Non-small cell lung cancer adenocarcinoma histology status post CT-guided biopsy of the left upper lobe lung mass done on October 21, 2023. She completed PFT and 6 min walk test (no oxygen required).PET scan done on October 07 showed 1.7 cm left upper lobe lung nodule with SUV of 8.5. There is another 10 mm nodule with SUV of 5.1 in the left upper lobe .referred to Dr Eastman for surgical consultation. Spulm: Dr. Hassan. She is feeling better after starting new inhaler. JARED LOCKHART Attn: [address] [place], [address], [place] 11/18/2023 16:03:57 12/05/2023 text/html Pt presents for R elbow redness and swelling for 1 wk. C/o mild pain with bending elbow due to pressure from swelling. Pt went to Oncologist yesterday for lung cancer f/u, endorses that they did imaging of R arm and told pt that she doesn't have any blood clots. States that she rests her head and weight of her upper body on her R elbow constantly. JARED AVINA Attn: Accounting[address] [facility], [place], [address], [facility] 12/10/2023 09:17:33 12/16/2023 text/html here for elbow a nd my breathing has gotten worse. Patient seen in ER for Right elbow pain 12/06/2023. xray shows soft tissue swelling posterior to the olecranon and proximal ulna (could be olecranon bursitis). small chronic nonuinted fracture with corticated margins at tip of coronoid process. She c/o of swelling in r elbow. I already finished the pain medication and abx they gave me. today she states her breathing is worse. SHe agrees to go to hospital. JARED LOCKHART Attn: Accounting[address] [facility], [place], [address], [facility] 12/16/2023 13:12:39 01/13/2024 text/html here for ER F/U Patient [...] rehab referral sent by pulm. needs sleep study.TOP INSTALLER lizet put her on xanax?? JARED LOCKHART Attn: Accounting[address] [facility], [place], [address], [facility] 01/13/2024 14:32:30 OBGyn Episode No OBEpisode recorded.
--- OUTSIDE RECORDS SUMMARY | 2024-04-08 10:13 | XMS_ITS | Encounter Summary ---
Author Organization [facility] Address [address] [place] [address] Care Team Providers Care Commercial Attache Name Role Phone Unavailable Primary Care Provider Unavailabl e Reason for Visit * Reason Onset Date Comments Medication Prior Auth Request 01/23/2022 Encounter Details Date Type Department Care Team (Late st Contact Info) Description 01/23/2022 Telephone [facility], Diabetes and Metabolism [address] [facility] [place] [phone] Rene Caraballo MD [facility] [place] [address] Medication Prior Auth Request Social History Tobacco Use Types Packs/Day Years Used Date Smoking Tobacco: Every Day Cigarettes Smokeless Tobacco: Current Sex and Gender Information Value Date Recorded Sex Assigned at Not on file Gender Identity Not on file Sexual Orientation Not on file documented as of this encounter Miscellaneous Notes * Telephone Encounter - Lyndsay Koch RN - 01/23/2022 2:55 PM CDT Called pt to inquire about insurance information to proceed with PA on Omeprazole. Left VM and called back number. documented in this encounter Plan of Treatment Not on file documented as of this encounter Visit Diagnoses Not on filedocumented in this encounter
--- OUTSIDE RECORDS SUMMARY | 2024-04-08 10:13 | XMS_ITS | Encounter Summary ---
Author Organization [facility] Address [address] [facility] [place] [address] Care Team Providers Care Prime Minister Name Role Phone Unknown, Provider Primary Care Provider Unavaila ble Reason for Visit * Reason Onset Date Comments General 12/18/2023 OSH Transfer Encounter Details Date Type Department Care Team (Late st Contact Info) Description 12/18/2023 Telephone [facility] INTERNAL MED [address] [place] [phone] Randi Rodriguez MD [address] [place] [phone] General (OSH Transfer ) Social History Tobacco Use Types Packs/Day Years Used Date Smoking Tobacco: Every Day Cigarettes Smokeless Tobacco: Current Alcohol Use Standard Drinks/Week Comments Yes 0 (1 standard drink = 0.6 oz pur e alcohol) PHQ-2 Answer Date Recorded Patient Health Questionnaire-2 Score 0 06/17/2023 Sex and Gender Information Value Date Recorded Sex Assigned at Not on file Gender Identity Not on file Sexual Orientation Not on file documented as of this encounter Miscellaneous Notes * Telephone Encounter - Randi Rodriguez MD - 12/18/2023 5:41 PM CDT [facility] Internal Medicine Outside Hospital Transfer Call 12/18/2023 5:41 PM Patient Name: Sherri Ramirez : 1960 Outside Hospital: [facility] Reason for Transfer: ID Consult Brief History (include pertinent labs, imaging, consultations): 63 y/o with COPD presenting with dyspnea. Being treated for COPD exacerbation at OSH. Found to havesuspected R elbow bursitis. Joint Tap -> growing Gram+ bacili. CT imaging c/f olecranon bursitis, possible OM. Orthopedics at OSH recommended transfer for ID consult. Pt HDS at this time. On . Consulting Service at [facility] aware? (If blank, NA): No Suggested needs on arrival: - Manage septic arthritis - Consider ID, Ortho c/s upon arrival (Ortho already called here, felt this could be medically managed for now) *If patient awaiting bed for longer than 24 hours, an update on patients condition will be requested prior to transfer* Randi Rodriguez MD documented in this encounter Plan of Treatment Not on file documented as of this encounter Visit Diagnoses Not on filedocumented in this encounter Care Teams Prime Minister Relationship Specialty Start Date End Date Unknown, Provider PCP - General 06/17/23 documented as of this encounter
--- OUTSIDE RECORDS SUMMARY | 2024-04-08 10:13 | XMS_ITS | Encounter Summary ---
Author Organization [facility] Address [address] [place] [address] Care Team Providers Care All Round Butcher Name Role Phone Unknown, Provider Primary Care Provider Unavaila ble Encounter Details Date Type Department Care Team (Latest Contact Info) Description 06/17/2023 11:39 AM CDT - 06/17/2023 11:49 AM CDT Hospital Encounter [facility] DIAGNOSTIC RAD CSM [address] [facility] [place] [address] Ese Stockton PA-C [address] [place] [address] Discharge Disposition: Home or Self Care Social History Tobacco Use Types Packs/Day Years [...] on file documented as of this encounter Medications at Time of Discharge Medication Sig Dispensed Refills Start Date End Date albuterol HFA (Proventil; Ventolin; Proair) 108 (90 Base) MCG/ACT inhaler Inhale 2 (two) puffs by mouth 4 times daily as needed 06/09/2021 losartan (Cozaar) 100 MG tablet Take 1 (one) tablet by mouth once daily 10/18/2021 metoprolol tartrate IR (Lopressor) 50 MG tablet Take 1 (one) tablet by mouth 2 times daily 12/13/2021 nortriptyline (Pamelor) 50 MG capsule Take 1 (one) capsule by mouth once daily 12/18/2021 omeprazole (PriLOSEC) 20 MG capsuleIndications:Gastr oesophageal reflux disease, unspecified whether esophagitis present Take 1 (one) capsule by mouth once daily 30 capsule 01/18/2022 Symbicort 160-4.5 MCG/ACT inhaler Inhale 2 (two) puffs by mouth 2 times daily 01/15/2022 vitamin D3 (Cholecaciferol) 125 MCG (5000 UT)Indications:Hypovitam inosis D Take 1 (one) tablet by mouth once daily 01/18/2022 documented as of this encounter Plan of Treatment Not on file documented as of this encounter Procedures Procedure Name Priority Date/Time Associated Diagnosis Comments XR CERVICAL SPINE 2 OR 3VW Routine 06/17/2023 11:48 AM CDT Other back pain, unspecified chronicity documented in this encounter Results * XR CERVICAL SPINE 2 OR 3VW (06/17/2023 11:48 AM CDT) Anatomical Region Laterality Modality Spine Radiographic Mei ging 06/17/2023 1:00 PM CDT Impressions 06/17/2023 2:56 PM CDT IMPRESSION: 1.No acute fracture identified. 2.Suggestion of subtle anterior subluxation of C4 relative to C5 measuring approximately 1.2 mm. 3.Moderate degenerative disc disease at C4-C5 and C5-C6. 4.The C6-C7 through the C7-T1 levels are inadequately visualized for assessment on the lateral projection. 5.Multilevel facet joint degenerative changes appearing greater on the right than the left. Report dictated by Ken Pinzon MD (radiology orderly). I, Damien Finney MD have personally reviewed and interpreted this examination/study. > Interpreting Provider: Damien Finney MD on 06/17/2023 2:56 PM Narrative 06/17/2023 2:56 PM CDT PROCEDURE: ??XR CERVICAL SPINE 2 OR 3VW, DATE/TIME OF EXAM: ??06/17/2023 11:48 AM, LOCATION ??[facility] INDICATION: M54.89: Other back pain, unspecified chronicity ADDITIONAL CLINICAL INFORMATION: Ordering Provider Reason For Exam: ??back pain COMPARISON: None. FINDINGS: The C6-C7 level and the C7 vertebral level are inadequately visualized for assessment.. The vertebral bodies are normally aligned on the AP projection.. No acute fracture or compression deformity is identified. Moderate intervertebral disc space narrowing at the C4-5 and C5-6 levels. Additionally, there is multilevel mild facet and uncovertebral osteoarthropathy. On the lateral projection there is suggestion of subtle anterior subluxation of C4 relative to C5 measuring approximately 1.2 mm seen in association with facet joint degenerative changes at this level. The lateral masses are normally aligned on the AP view. The predental interval and prevertebral soft tissues appear normal where visualized. The dens is incompletely evaluated given lack of dedicated imaging. Procedure Note Damien Finney MD - 06/17/2023 PROCEDURE: XR CERVICAL SPINE 2 OR 3VW, DATE/TIME OF EXAM: 1:48 AM, LOCATION [facility] INDICATION: M54.89: Other back pain, unspecified chronicity ADDITIONAL CLINICAL INFORMATION: Ordering Provider Reason For Exam: back pain COMPARISON: None. FINDINGS: The C6-C7 level and the C7 vertebral level are inadequately visualizedfor assessment.. The vertebral bodies are normally aligned on the AP projection.. No acute fracture or compression deformity is identified. Moderate intervertebral disc space narrowing at the C4-5 and C5-6levels. Additionally, there is multilevel mild facet and uncovertebral osteoarthropathy. On the lateral projection there is suggestion ofsubtle anterior subluxation of C4 relative to C5 measuring approximately 1.2 mm seen in association with facet joint degenerative changes at this level. The lateral masses are normally aligned on the AP view. The predental interval and prevertebral soft tissues appear normal where visualized. The dens is incompletely evaluated given lack of dedicated imaging. IMPRESSION: 1.No acute fracture identified. 2.Suggestion of subtle anterior subluxation of C4 relative to [id number] approximately 1.2 mm. 3.Moderate degenerative disc disease at C4-C5 and C5-C6. 4.The C6-C7 through the C7-T1 levels are inadequately visualized for assessment on the lateral projection. 5.Multilevel facet joint degenerative changes appearing greater on the right than the left. Report dictated by Ken Pinzon MD (radiology orderly). I, Damien Finney MD have personally reviewed and interpreted this examination/study. > Interpreting Provider: Damien Finney MD on 06/17/2023 2:56 PM Ese Stockton PA-C DIAGNOSTIC IMAGING ORDERABLES documented in this encounter Visit Diagnoses Diagnosis Other back pain, unspecified chronicity documented in this encounter Care Teams All Round Butcher Relationship Specialty Start Date End Date Unknown, Provider PCP - General 06/17/23 documented as of this encounter
--- OUTSIDE RECORDS SUMMARY | 2024-04-08 10:13 | XMS_ITS | Encounter Summary ---
Author Organization [facility] Address [address] [facility] [place] [address] Care Team Providers Care Converting Supervisor Name Role Phone Unknown, Provider Primary Care Provider Unavaila ble Encounter Details Date Type Department Care Team (Late st Contact Info) Description 06/17/2023 Orders Only [facility] - Orthoped[facility] [address] [facility] [place] [address] Ese Stockton PALacie [address] [place], [place] [id number] Other back pain, unspecified chronicity Social History Tobacco Use Types Packs/Day Years [...] on file documented as of this encounter Plan of Treatment Not on file documented as of this encounter Results * XR LUMBAR SPINE 2 OR 3VW (06/17/2023 11:55 AM CDT) Anatomical Region Laterality Modality Spine Radiographic Mei ging 06/17/2023 1:04 PM CDT Impressions 06/17/2023 3:02 PM CDT IMPRESSION: 1.No acute fracture in the lumbar spine. 2.Multilevel degenerative changes in the lumbar spine, including grade 1 anterolisthesis at the L4-5 level, multilevel intervertebral disc space narrowing, and facet arthropathy, most evident from L3-L4 through L5-S1.. 3.Severe degenerative disc disease at L5-S1 with at least moderate to severe degenerative disc disease at L4-L5. Report dictated by Ken Pinzon MD (enrollment services vice president). I, Damien Finney MD have personally reviewed and interpreted this examination/study. > Interpreting Provider: Damien Finney MD on 06/17/2023 3:02 PM Narrative 06/17/2023 3:02 PM CDT PROCEDURE: ??XR LUMBAR SPINE 2 OR 3VW, DATE/TIME OF EXAM: ??06/17/2023 11:55 AM, LOCATION ??[facility] INDICATION: M54.89: Other back pain, unspecified chronicity ADDITIONAL CLINICAL INFORMATION: Ordering Provider Reason For Exam: ??back pain COMPARISON: None. FINDINGS: There is grade 1-2 anterolisthesis at the L4-5 level measuring approximately 9 to 10 mm. Otherwise the vertebral body alignment is normal. There is no fracture or compression deformity. There is multilevel intervertebral disc space narrowing, most prominently at the L5-S1 level. Multilevel facet arthropathy throughout the lumbar spine, most prominent at the L4-5 and L5-S1 levels. Bone density and texture are normal. The abdominal aorta and bilateral common iliac arteries are atherosclerotic. Procedure Note Damien Finney MD - 06/17/2023 PROCEDURE: XR LUMBAR SPINE 2 OR 3VW, DATE/TIME OF EXAM: 1:55 AM, LOCATION [facility] INDICATION: M54.89: Other back pain, unspecified chronicity ADDITIONAL CLINICAL INFORMATION: Ordering Provider Reason For Exam: back pain COMPARISON: None. FINDINGS: There is grade 1-2 anterolisthesis at the L4-5 level measuring approximately 9 to 10 mm. Otherwise the vertebral body alignment isnormal. There is no fracture or compression deformity. There is multilevel intervertebral disc space narrowing, most prominently at the L5-M8ryeva. Multilevel facet arthropathy throughout the lumbar spine, most prominentat the L4-5 and L5-S1 levels. Bone density and texture are normal. The abdominal aorta and bilateral common iliac arteries are atherosclerotic. IMPRESSION: 1.No acute fracture in the lumbar spine. 2.Multilevel degenerative changes in the lumbar spine, including grade 1 anterolisthesis at the L4-5 level, multilevel intervertebral disc space narrowing, and facet arthropathy, most evident from L3-L4 throughL5-S1.. 3.Severe degenerative disc disease at L5-S1 with at least moderate to severe degenerative disc disease at L4-L5. Report dictated by Ken Pinzon MD (enrollment services vice president). Damien Matias MD have personally reviewed and interpreted this examination/study. > Interpreting Provider: Damien Finney MD on 06/17/2023 3:02 PM Ese COLEMAN-Shakira DIAGNOSTIC IMAGING ORDERABLES * XR THORACIC SPINE 2VW (06/17/2023 11:48 AM CDT) Anatomical Region Laterality Modality Spine Radiographic Mei ging 06/17/2023 1:03 PM CDT Impressions 06/17/2023 2:58 PM CDT IMPRESSION: No acute fracture or malalignment identified in the thoracic spine. Moderate degree of multilevel degenerative disease most evident in the mid and lower thirds of the thoracic spine region. Report dictated by Ken Pinzon MD (enrollment services vice president). Damien Matias MD have personally reviewed and interpreted this examination/study. > Interpreting Provider: Damien Finney MD on 06/17/2023 2:58 PM Narrative 06/17/2023 2:58 PM CDT PROCEDURE: ??XR THORACIC SPINE 2VW, DATE/TIME OF EXAM: ??06/17/2023 11:49 AM, LOCATION ??[facility] INDICATION: M54.89: Other back pain, unspecified chronicity ADDITIONAL CLINICAL INFORMATION: Ordering Provider Reason For Exam: ??back pain COMPARISON: None. FINDINGS: The vertebral bodies are normally aligned. There is no fracture or suggested acute compression deformity. The intervertebral disc spaces are maintained. Multilevel anterior osteophyte formation present in the thoracic spine. Facet joints are normal. The bones are diffusely demineralized. The thoracic aorta is atherosclerotic. Procedure Note Damien Finney MD - 06/17/2023 PROCEDURE: XR THORACIC SPINE 2VW, DATE/TIME OF EXAM: 06/17/2023 11:49AM, LOCATION [facility] INDICATION: M54.89: Other back pain, unspecified chronicity ADDITIONAL CLINICAL INFORMATION: Ordering Provider Reason For Exam: back pain COMPARISON: None. FINDINGS: The vertebral bodies are normally aligned. There is no fracture or suggested acute compression deformity. The intervertebral disc spacesare maintained. Multilevel anterior osteophyte formation present in the thoracic spine. Facet joints are normal. The bones are diffusely demineralized. The thoracic aorta is atherosclerotic. IMPRESSION: No acute fracture or malalignment identified in the thoracic spine. Moderate degree of multilevel degenerative disease most evident in themid and lower thirds of the thoracic spine region. Report dictated by Ken Pinzon MD (enrollment services vice president). Damien Matias MD have personally reviewed and interpreted this examination/study. > Interpreting Provider: Damien Finney MD on 06/17/2023 2:58 PM Ese L Roser PA-C DIAGNOSTIC IMAGING ORDERABLES * XR CERVICAL SPINE 2 OR 3VW [...] left. Report dictated by Ken Pinzon MD (enrollment services vice president). Damien Matias MD have personally reviewed and interpreted this examination/study. > Interpreting Provider: Damien Finney MD on 06/17/2023 2:56 PM Narrative 06/17/2023 2:56 PM CDT PROCEDURE: ??XR CERVICAL SPINE 2 OR 3VW, DATE/TIME OF EXAM: ??06/17/2023 11:48 AM, LOCATION ??[facility] INDICATION: M54.89: Other back pain, unspecified chronicity [...] 3VW, DATE/TIME OF EXAM: 1:48 AM, LOCATION [facility] INDICATION: M54.89: Other back pain, unspecified chronicity [...] subtle anterior subluxation of C4 relative to [id number] approximately 1.2 mm. 3.Moderate degenerative disc disease at C4-C5 and C5-C6. 4.The C6-C7 through the C7-T1 levels are inadequately visualized for assessment on the lateral projection. 5.Multilevel facet joint degenerative changes appearing greater on the right than the left. Report dictated by Ken Pinzon MD (enrollment services vice president). I, Damien Finney MD have personally reviewed and interpreted this examination/study. > Interpreting Provider: Damien Finney MD on 06/17/2023 2:56 PM Ese Stockton PA-C DIAGNOSTIC IMAGING ORDERABLES documented in this encounter Visit Diagnoses Diagnosis Other back pain, unspecified chronicity- Primary Other back pain, unspecified chronicity Other back pain, unspecified chronicity Other back pain, unspecified chronicity documented in this encounter Care Teams Converting Supervisor Relationship Specialty Start Date End Date Unknown, Provider PCP - General 06/17/23 documented as of this encounter
--- OUTSIDE RECORDS SUMMARY | 2024-04-08 10:13 | XMS_ITS | Clinical Summary ---
Author Organization [facility] Barbara Dunbar Address [address] [place] [address] Care Team Providers Care Shank Faker Name Role Phone Unavailable Primary Care Provider Unavailabl e Allergies Active Allergy Reactions Criticality Noted Date Comments Sertraline Rash Medium 01/18/2022 Medications Medication Sig Dispensed Refills Start Date End Date Status albuterol sulfate 90 mcg/actuation aero powdr breath act w/sensor Take by inhalation. Act melly predniSONE (DELTASONE) 50 mg tablet Take 50 mg by mouth daily. Active budesonide-formoter oL (SYMBICORT) 160-4.5 mcg/actuation HFA Aerosol Inhaler Take 2 Puffs by inhalation 2 times daily. Active multivit-min/calc/b iotin/D3/FA (BIOTIN PLUS-CALCIUM AND VIT D3 ORAL) Take by mouth. Active nortriptyline (PAMELOR) 50 mg capsule Take 50 mg by mouth daily at bedtime. Active metoprolol tartrate (LOPRESSOR) 50 mg tablet Take 50 mg by mouth 2 times daily. Active losartan (COZAAR) 100 mg tablet Take 100 mg by mouth daily. Active traMADoL (ULTRAM) 50 mg tabletIndications:L wilman nodule Take 1 tablet 12 hours before the scan and then 3 hours before the scan. 5 Tablet 10/07/2023 Active Ozempic 0.25 mg or 0.5 mg (2 mg/3 mL) Pen Injector Inject 1 mg by subcutaneous injection every 7 days. Active tiotropium (SPIRIVA RESPIMAT) 2.5 mcg/actuation Mist Inhale 2 puffs every day by inhalation route. 11/18/2023 Active Active Problems No known active problems Encounters Date Type Department Care Team Description 04/02/2024 Orders Only [facility] Oncology and Hematology - Chris [address] [place] [phone] Dakota Watkins MD 01/29/2024 External Device Data STL ABSTRACTION Provider, Abstract 01/20/2024 4:30 PM CDT Telephone Check Up [facility] Oncology and Hematology [facility] [address] [place] [phone] Dakota Watkins MD Malignant neoplasm of upper lobe of left lung (Primary Dx) 01/14/2024 External Device Data STL ABSTRACTION Provider, Abstract from Last 3 Months Family History Medical History Relation Name Comments No Known Problems Brother Heart Disease Father Diabetes Mother Heart Disease Mother Breast Cancer Paternal Aunt No Known Problems Sister Relation Name Status Comments Brother Alive Child Alive Father Mother Paternal Aunt Sister Alive Social History Tobacco Use Types Packs/Day Years Used Date Smoking Tobacco: Every Day Cigarettes 1 50.6 Started: 08/31/2023 Tobacco Cessation:Ready to Q uit: Not Asked; Counseling Given: Not Answered Alcohol Use Standard Drinks/Week Comments Yes 0 (1 standard drink = 0.6 oz pur e alcohol) socially Sex and Gender Information Value Date Recorded Sex Assigned at Not on file Gender Identity Not on file Sexual Orientation Not on file Last Filed Vital Signs Vital Sign Reading Time Taken Comments Blood Pressure 87/71 12/03/2023 11:21 AM CDT Pulse 79 12/03/2023 11:21 AM CDT Temperature 36.6 ??C (97.8 ??F) 12/03/2023 11:17 AM C DT Respiratory Rate 20 12/03/2023 11:17 AM CDT Oxygen Saturation 95% 12/03/2023 11:17 AM CDT Inhaled Oxygen Concentration - - Weight 96.2 kg (212 lb) 12/03/2023 11:17 AM CDT Height 152.4 cm (5') 09/25/2023 1:33 PM CDT Body Mass Index 41.4 09/25/2023 1:33 PM CDT Plan of Treatment Upcoming Encounters Date Type Department Care Team (Late st Contact Info) Description 04/14/2024 10:15 AM HORSE BREEDER Office Visit [facility] Oncology and Hematology [facility] [address] [place] [phone] Dakota Watkins MD [address] [facility] [address] [place] [address] Health Maintenance Due Date Last Done Comments Pre-Diabetes and Diabetes Screening 1960 Traditional Medicare (ACO) A nnual Wellness Visit 1980 CERVICAL CANCER SCREENING 07/10/1991 BREAST CANCER SCREENING 2001 COLORECTAL SCREENING 2006 Colorectal Cancer Screening 2006 FIT-DNA Q 3 years 2006 FIT/FOBT Q 1 year 2006 Flex Sig/CT Colonography Q 5 years 2006 ZOSTER VACCINE (1 of 2) 07/10/2011 RSV VACCINE (60+ or ) (1 - Risk 60-74 years 1-dose series) 2021 DTAP/TDAP/TD VACCINES (2 - Td or Tdap) 08/31/2027 PNEUMOCOCCAL VACCINE 0-64 YEARS Completed 3 INFLUENZA VACCINE Completed 01/13/2024, 04/28/2021 Procedures Procedure Name Priority Date/Time Associated Diagnosis Comments CT CHEST W CONTRAST Routine 03/30/2024 10:52 AM HORSE BREEDER from Last 3 Months Results * CT CHEST W CONTRAST (03/30/2024 10:52 AM HORSE BREEDER) Anatomical Region Laterality Modality Chest Other Dakota Watkins MD CT ORDERABLES from Last 3 Months
--- OUTSIDE RECORDS SUMMARY | 2024-04-08 10:13 | XMS_ITS | Encounter Summary ---
Author Organization [facility] Address [address] [facility] [place] [address] Care Team Providers Care Appointment Setter Name Role Phone Unavailable Primary Care Provider Unavailabl e Reason for Visit * Reason Onset Date Comments Referral 04/12/2022 Encounter Details Date Type Department Care Team (Late st Contact Info) Description 04/12/2022 Telephone [facility] [address] [place] [address] Rashel Juarez MD [address] [place] [id number] Referral Social History Tobacco Use Types Packs/Day Years Used Date Smoking Tobacco: Every Day Cigarettes Smokeless Tobacco: Current Sex and Gender Information Value Date Recorded Sex Assigned at Not on file Gender Identity Not on file Sexual Orientation Not on file documented as of this encounter Miscellaneous Notes * Telephone Encounter - Raven Juarez CPC - 04/12/2022 10:28 AM CST Received referral from JARED Mata with [facility]. Patient being referred for cervical spondylosis. No recent MRI or CT available. Left patient voice message may schedule with JARED Stockton for evaluation. CORPORATE RECRUITER documented in this encounter Plan of Treatment Not on file documented as of this encounter Visit Diagnoses Not on filedocumented in this encounter
--- OUTSIDE RECORDS SUMMARY | 2024-04-08 10:13 | XMS_ITS | Encounter Summary ---
Author Organization [facility] Address [address] [place] [address] Care Team Providers Care Mash Tub Cooker Name Role Phone Unknown, Provider Primary Care Provider Unavaila ble Encounter Details Date Type Department Care Team (Latest Contact Info) Description 06/17/2023 11:39 AM CDT - 06/17/2023 11:49 AM CDT Hospital Encounter [facility] DIAGNOSTIC RAD CSM [address] [facility] [place] [address] Ese Stockton PA-C [address] [place] [address] Discharge Disposition: Home or Self Care Social [...] Name Priority Date/Time Associated Diagnosis Comments XR THORACIC SPINE 2VW Routine 06/17/2023 11:48 AM CDT Other back pain, unspecified chronicity documented in this encounter Results * XR THORACIC SPINE 2VW (06/17/2023 11:48 AM CDT) Anatomical Region Laterality Modality Spine Radiographic Mei ging 06/17/2023 1:03 PM CDT Impressions 06/17/2023 2:58 PM CDT IMPRESSION: No acute fracture or malalignment identified in the thoracic spine. Moderate degree of multilevel degenerative disease most evident in the mid and lower thirds of the thoracic spine region. Report dictated by Ken Pinzon MD (resident care provider). I, Damien Finney MD have personally reviewed and interpreted this examination/study. > Interpreting Provider: Damien Finney MD on 06/17/2023 2:58 PM Narrative 06/17/2023 2:58 PM CDT PROCEDURE: ??XR THORACIC SPINE 2VW, DATE/TIME OF EXAM: ??06/17/2023 11:49 AM, LOCATION ??[facility] INDICATION: M54.89: Other back pain, unspecified [...] 2VW, DATE/TIME OF EXAM: 06/17/2023 11:49AM, LOCATION [facility] INDICATION: M54.89: Other back pain, unspecified [...] region. Report dictated by Ken Pinzon MD (resident care provider). I, Damien Finney MD have personally reviewed and interpreted this examination/study. > Interpreting Provider: Damien Finney MD on 06/17/2023 2:58 PM Ese Stockton PA-C DIAGNOSTIC IMAGING ORDERABLES documented in this encounter Visit Diagnoses Diagnosis Other back pain, unspecified chronicity documented in this encounter Care Teams Mash Tub Cooker Relationship Specialty Start Date End Date Unknown, Provider PCP - General 06/17/23 documented as of this encounter
--- OUTSIDE RECORDS SUMMARY | 2024-04-08 10:13 | XMS_ITS | Patient Health Summary ---
Author Organization [facility] Address [address] [place] [address] Care Team Providers Care Silverlight Developer Name Role Phone Unknown, Provider Primary Care Provider Unavaila ble Note from [facility],non-owned Affiliates and Associated Physician Practices is amultiple site organization consisting of ambulatory clinics and hospital sitesin [place], [place], [place] and [place]. This disclosure is being madepursuant to the Care Everywhere program and may not contain all information available regarding this patient. Last updated 17.[facility] Allergies * Sertraline(Rash) -Medium Criticality Medications * Be aware that medications may not be up to date on this document. Alwaysverify current medications with the patient. * metoprolol tartrate IR (Lopressor) 50 MG tablet(Started 12/13/2021) Take 1 (one) tablet by mouth 2 times daily * nortriptyline (Pamelor) 50 MG capsule(Started 12/18/2021) Take 1 (one) capsule by mouth once daily * losartan (Cozaar) 100 MG tablet(Started 10/18/2021) Take 1 (one) tablet by mouth once daily * Symbicort 160-4.5 MCG/ACT inhaler(Started 01/15/2022) Inhale 2 (two) puffs by mouth 2 times daily * albuterol HFA (Proventil; Ventolin; Proair) 108 (90 Base) MCG/ACT inhaler (Started 06/09/2021) Inhale 2 (two) puffs by mouth 4 times daily as needed * vitamin D3 (Cholecaciferol) 125 MCG (5000 UT)(Started 01/18/2022) Take 1 (one) tablet by mouth once daily * omeprazole (PriLOSEC) 20 MG capsule(Started 01/18/2022) Take 1 (one) capsule by mouth once daily Active Problems Problem Noted Date Diagnosed Date Pyogenic arthritis of elbow, due to unspecified organism, unspecified laterality 12/18/2023 Hypercalcemia 01/18/2022 RAISSA (obstructive sleep apnea) 01/18/2022 Simple chronic bronchitis 01/18/2022 NAFLD (nonalcoholic fatty liver disease) 022 Social History Tobacco Use Types Packs/Day Years Used Date Smoking Tobacco: Every Day Cigarettes Smokeless Tobacco: Current Tobacco Cessation:Ready to Q uit: Not Asked; [...] Sign Reading Time Taken Comments Blood Pressure 170/92 01/18/2022 1:05 PM CDT Pulse - - Temperature - - Respiratory Rate - - Oxygen Saturation - - Inhaled Oxygen Concentration - - Weight 96.6 kg (213 lb) 06/17/2023 11:57 AM CDT Height 152.4 cm (5') 06/17/2023 11:57 AM CDT Body Mass Index 41.6 06/17/2023 11:57 AM CDT Procedures * XR LUMBAR SPINE 2 OR 3VW(Performed 06/17/2023) Performed for Other back pain, unspecified chronicity * XR THORACIC SPINE 2VW(Performed 06/17/2023) Performed for Other back pain, unspecified chronicity * XR CERVICAL SPINE 2 OR 3VW(Performed 06/17/2023) Performed for Other back pain, unspecified chronicity Results * XR LUMBAR SPINE 2 OR [...] L4-L5. Report dictated by Ken Pinzon MD (residential youth counselor). I, Damien Finney MD have personally reviewed and interpreted this examination/study. > Interpreting Provider: Damien Finney MD on 06/17/2023 3:02 PM Narrative 06/17/2023 3:02 PM CDT PROCEDURE: ??XR LUMBAR SPINE 2 OR 3VW, DATE/TIME OF EXAM: ??06/17/2023 11:55 AM, LOCATION ??[facility] INDICATION: M54.89: Other back pain, [...] 3VW, DATE/TIME OF EXAM: 1:55 AM, LOCATION [facility] INDICATION: M54.89: Other back pain, unspecified chronicity ADDITIONAL CLINICAL INFORMATION: Ordering Provider Reason For Exam: back pain COMPARISON: None. FINDINGS: There is grade 1-2 anterolisthesis at the L4-5 level measuring approximately 9 to 10 mm. Otherwise the vertebral body alignment isnormal. There is no fracture or compression deformity. There is multilevel intervertebral disc space narrowing, most prominently at the L5-N9tlbol. Multilevel facet arthropathy throughout the lumbar spine, [...] L4-L5. Report dictated by Ken Pinzon MD (residential youth counselor). Damien Matias MD have personally reviewed and interpreted this examination/study. > Interpreting Provider: Damien Finney MD on 06/17/2023 3:02 PM Ese Stockton PA-C DIAGNOSTIC IMAGING ORDERABLES * XR THORACIC SPINE [...] region. Report dictated by Ken Pinzon MD (residential youth counselor). Damien Matias MD have personally reviewed and interpreted this examination/study. > Interpreting Provider: Damien Finney MD on 06/17/2023 2:58 PM Narrative 06/17/2023 2:58 PM CDT PROCEDURE: ??XR THORACIC SPINE 2VW, DATE/TIME OF EXAM: ??06/17/2023 11:49 AM, LOCATION ??[facility] INDICATION: M54.89: Other back pain, [...] 2VW, DATE/TIME OF EXAM: 06/17/2023 11:49AM, LOCATION [facility] INDICATION: M54.89: Other back pain, [...] region. Report dictated by Ken Pinzon MD (residential youth counselor). Damien Matias MD have personally reviewed and interpreted this examination/study. > Interpreting Provider: Damien Finney MD on 06/17/2023 2:58 PM Ese COLEMAN-Shakira DIAGNOSTIC IMAGING ORDERABLES * XR CERVICAL SPINE [...] left. Report dictated by Ken Pinzon MD (residential youth counselor). Damien Matias MD have personally reviewed and interpreted this examination/study. > Interpreting Provider: Damien Finney MD on 06/17/2023 2:56 PM Narrative 06/17/2023 2:56 PM CDT PROCEDURE: ??XR CERVICAL SPINE 2 OR 3VW, DATE/TIME OF EXAM: ??06/17/2023 11:48 AM, LOCATION ??[facility] INDICATION: M54.89: Other back pain, [...] 3VW, DATE/TIME OF EXAM: 1:48 AM, LOCATION [facility] INDICATION: M54.89: Other back pain, [...] subtle anterior subluxation of C4 relative to [id number] approximately 1.2 mm. 3.Moderate degenerative disc disease at C4-C5 and C5-C6. 4.The C6-C7 through the C7-T1 levels are inadequately visualized for assessment on the lateral projection. 5.Multilevel facet joint degenerative changes appearing greater on the right than the left. Report dictated by Ken Pinzon MD (residential youth counselor). I, Damien Finney MD have personally reviewed and interpreted this examination/study. > Interpreting Provider: Damien Finney MD on 06/17/2023 2:56 PM Ese Stockton PA-C DIAGNOSTIC IMAGING ORDERABLES Care Teams Silverlight Developer Relationship Specialty Start Date End Date Unknown, Provider PCP - General 06/17/23
--- OUTSIDE RECORDS SUMMARY | 2024-04-08 10:13 | XMS_ITS | Referral Summary ---
Author Organization [facility] Address [address] [place] [address] Care Team Providers Care Electroless Plater Name Role Phone Unknown, Provider Primary Care Provider Unavaila ble Source Comments [facility]-owned [facility] and Associated [facility]ician Practices is amultiple site organization consisting of ambulatory clinics and hospital sitesin [place], [place], [place] and [place]. This disclosure is being madepursuant to the Care Everywhere program and may not contain all information available regarding this patient. Last updated 17.[facility] [place] Allergies Active Allergy Reactions Criticality Noted Date Comments Sertraline Rash Medium 01/18/2022 Medications * Be aware that medications may not be up to date on this document. Alwaysverify current medications with the patient. Medication Sig Dispensed Refills Start Date End Date Status metoprolol tartrate IR (Lopressor) 50 MG tablet Take 1 (one) tablet by mouth 2 times daily 12/13/2021 Active nortriptyline (Pamelor) 50 MG capsule Take 1 (one) capsule by mouth once daily 12/18/2021 Active losartan (Cozaar) 100 MG tablet Take 1 (one) tablet by mouth once daily 10/18/2021 Active Symbicort 160-4.5 MCG/ACT inhaler Inhale 2 (two) puffs by mouth 2 times daily 01/15/2022 Active albuterol HFA (Proventil; Ventolin; Proair) 108 (90 Base) MCG/ACT inhaler Inhale 2 (two) puffs by mouth 4 times daily as needed 06/09/2021 Active vitamin D3 (Cholecaciferol) 125 MCG (5000 UT)Indications:Hypovi taminosis D Take 1 (one) tablet by mouth once daily 01/18/2022 Active omeprazole (PriLOSEC) 20 MG capsuleIndications:Ga stroesophageal reflux disease, unspecified whether esophagitis present Take 1 (one) capsule by mouth once daily 30 capsule 01/18/2022 Active Active Problems Problem Noted Date Diagnosed Date [...] Mass Index 41.6 06/17/2023 11:57 AM CDT Plan of Treatment Not on file Care Teams Electroless Plater Relationship Specialty Start Date End Date Unknown, Provider PCP - General 06/17/23
--- OUTSIDE RECORDS SUMMARY | 2024-04-08 10:13 | XMS_ITS | Encounter Summary ---
Author Organization [facility] Address [address] [place] [address] Care Team Providers Care Logging Equipment Mechanic Name Role Phone Unavailable Primary Care Provider Unavailabl e Encounter Details Date Type Department Care Team (Late st Contact Info) Description 01/29/2024 External Device Data [facility] ABSTRACTION Provider, Abstract NO ADDRESS ON FILE Social History Tobacco Use Types Packs/Day Years Used Date Smoking Tobacco: Every Day Cigarettes 1 50.6 Started: 08/31/2023 Alcohol Use Standard Drinks/Week Comments Yes 0 (1 standard drink = 0.6 oz pur e alcohol) socially Sex and Gender Information Value Date Recorded Sex Assigned at Not on file Gender Identity Not on file Sexual Orientation Not on file documented as of this encounter Plan of Treatment Upcoming Encounters Date Type Department Care Team (Late st Contact Info) Description 04/14/2024 10:15 AM ADULT EDUCATION TEACHER Office Visit [facility] Oncology and Hematology - [place] [address] [place] [address] [address] [place] [address] Dakota Watkins MD [address] [facility] [facility] [address] [place] [address] documented as of this encounter Visit Diagnoses Not on filedocumented in this encounter
--- OUTSIDE RECORDS SUMMARY | 2024-04-08 10:13 | XMS_ITS | Encounter Summary ---
Author Organization [facility] Address [address] [place] [address] Care Team Providers Care Elevator Repair Mechanic Name Role Phone Unknown, Provider Primary Care Provider Unavaila ble Encounter Details Date Type Department Care Team (Latest Contact Info) Description 06/17/2023 11:50 AM CDT - 06/17/2023 11:59 PM CDT Hospital Encounter [facility] DIAGNOSTIC RAD [facility] [address] [place] [address] Ese Stockton PA-C [address] [place] [address] Discharge Disposition: Home or Self Care Social [...] Name Priority Date/Time Associated Diagnosis Comments XR LUMBAR SPINE 2 OR 3VW Routine 06/17/2023 11:55 AM CDT Other back pain, unspecified chronicity documented in this encounter Results * XR LUMBAR SPINE [...] L4-L5. Report dictated by Ken Pinzon MD (vice president of nursing). I, Damien Finney MD have personally reviewed and interpreted this examination/study. > Interpreting Provider: Damien Finney MD on 06/17/2023 3:02 PM Narrative 06/17/2023 3:02 PM CDT PROCEDURE: ??XR LUMBAR SPINE 2 OR 3VW, DATE/TIME OF EXAM: ??06/17/2023 11:55 AM, LOCATION ??[facility] INDICATION: M54.89: Other back pain, unspecified chronicity [...] 3VW, DATE/TIME OF EXAM: 1:55 AM, LOCATION [facility] INDICATION: M54.89: Other back pain, unspecified chronicity ADDITIONAL CLINICAL INFORMATION: Ordering Provider Reason For Exam: back pain COMPARISON: None. FINDINGS: There is grade 1-2 anterolisthesis at the L4-5 level measuring approximately 9 to 10 mm. Otherwise the vertebral body alignment isnormal. There is no fracture or compression deformity. There is multilevel intervertebral disc space narrowing, most prominently at the L5-G2pytsb. Multilevel facet arthropathy throughout the lumbar spine, [...] disease at L4-L5. Report dictated by Ken Pnizon MD (vice president of nursing). I, Damien Finney MD have personally reviewed and interpreted this examination/study. > Interpreting Provider: Damien Finney MD on 06/17/2023 3:02 PM Ese Stockton PA-C DIAGNOSTIC IMAGING ORDERABLES documented in this encounter Visit Diagnoses Diagnosis Other back pain, unspecified chronicity documented in this encounter Care Teams Elevator Repair Mechanic Relationship Specialty Start Date End Date Unknown, Provider PCP - General 06/17/23 documented as of this encounter
--- OUTSIDE RECORDS SUMMARY | 2024-04-08 10:13 | XMS_ITS | Encounter Summary ---
Author Organization [facility] Address [address] [place] [address] Care Team Providers Care Electrophysiology Scientist Name Role Phone Unavailable Primary Care Provider Unavailabl e Reason for Visit * Reason Onset Date Comments Encounter Opened In Error 01/22/2022 Encounter Details Date Type Department Care Team (Late st Contact Info) Description 01/22/2022 Telephone [facility] Endocrinology, Diabetes and Metabolism [address] [facility] [place] [id number] Rene Caraballo MD [facility] [place] [address] Encounter Opened In Error Social History Tobacco Use Types Packs/Day Years Used Date Smoking Tobacco: Every Day Cigarettes Smokeless Tobacco: Current Sex and Gender Information Value Date Recorded Sex Assigned at Not on file Gender Identity Not on file Sexual Orientation Not on file documented as of this encounter Miscellaneous Notes * Telephone Encounter - Lyndsay Koch RN - 01/22/2022 8:20 AM CDT Sherri Ramirez encounter was opened in error. Please disregard any activity associated with this encounter. documented in this encounter Plan of Treatment Not on file documented as of this encounter Visit Diagnoses Diagnosis ERRONEOUS ENCOUNTER--DISREGARD- Primary documented in this encounter
--- OUTSIDE RECORDS SUMMARY | 2024-04-08 10:13 | XMS_ITS | Encounter Summary ---
Author Organization [facility] Address [address] [facility] [place] [address] Care Team Providers Care Tiler'S Assistant Name Role Phone Unknown, Provider Primary Care Provider Unavaila ble Reason for Referral * PT/OT/ST (Routine) - Pending Review Specialty Diagnoses / Procedures Referred By Contac t Referred To Contact Diagnoses Chronic periscapular pain on both sides Cervical paraspinal muscle spasm Lumbar paraspinal muscle spasm Chronic midline low back pain without sciatica Anterolisthesis of lumbar spine Neurogenic claudication due to lumbar spinal stenosis Ese Stockton PA-C [address] [place] [address] Referral ID Status Reason Start Date Expiration Date Visits Requested Visits Authorized [id number] Pending Review Specialty Services Required 06/17/2023 06/16/2024 1 1 Reason for Visit * Reason Comments Pain Back Back pain Encounter Details Date Type Department Care Team (Late st Contact Info) Description 06/17/2023 11:30 AM CDT Office Visit [facility] - Orthopedics [address] [place] [address], [place] [address] Ese Stockton PA-C [address] [place] [address] Chronic periscapular pain on both sides (Primary Dx); Cervical paraspinal muscle spasm; Lumbar paraspinal muscle spasm; Chronic midline low back pain without sciatica; Anterolisthesis of lumbar spine; Neurogenic claudication due to lumbar spinal stenosis Social History Tobacco Use Types Packs/Day Years [...] on file documented as of this encounter Last Filed Vital Signs Vital Sign Reading Time Taken Comments Blood Pressure - - Pulse - - Temperature - - Respiratory Rate - - Oxygen Saturation - - Inhaled Oxygen Concentration - - Weight 96.6 kg (213 lb) 06/17/2023 11:57 AM CDT Height 152.4 cm (5') 06/17/2023 11:57 AM CDT Body Mass Index 41.6 06/17/2023 11:57 AM CDT documented in this encounter Patient Instructions * Patient Instructions* Ese Stockton PA-C - 06/17/2023 12:46 PM CDT Images from the original note were not included. [facility] Sherri Ramirez 06/17/2023 Thank you for coming in to see us today for your lumbar and cervical spine pain. Work/School Excuse: Excused from Work/School on 06/17/23 DIAGNOSIS: Chronic periscapular pain on both sides Cervical paraspinal muscle spasm Lumbar paraspinal muscle spasm Chronic midline low back pain without sciatica Anterolisthesis of lumbar spine Neurogenic claudication due to lumbar spinal stenosis Plan: -Referral will be given to Physical Therapy for your neck and back pain -We discussed and recommended conservative treatment which includes: icing, physical therapy exercises, corticosteroid injections, anti-inflammatory medications, tylenol, and activity modification Follow up: in 8 weeks Please contact us at to make an appointment if your symptoms are not improving, or if something about your condition significantly changes. If approved to take by your primary care physician, NSAIDs (non-steroidal anti- inflammatory drugs) such as Aleve/naproxen and Motrin/ibuprofen, are suggested to relieve inflammation and pain for a short course of therapy for 10 days, advised to take with food and do not take with other NSAIDs. If you develop any adverse side effects such as dysphasia (pain with swallowing), stomach pain, nausea, chest pain, or changes in bladder, please discontinue the medication immediately. If approved to take by your primary care physician, Tylenol (acetaminophen) are suggested to help decrease pain. You cannot take more than 4000 mg per day or it can cause liver toxicity and damage. Please take the following to promote bone health: Multivitamin 1 tablet daily Vitamin D3 and Calcium as directed by your primary care provider. Can try Glucosamine/chondriotin or Tumeric for anti-inflammatory relief Cryotherapy (Ice therapy) is commonly used to reduce temperature, inflammation, pain, muscle spasm and symptoms of delayed onset muscle soreness. There are various methods of ice application such as ice pack, cold pack, cold water immersion, ice massage. Make sure you do not apply ice directly to your skin because it can cause atkins bite. You may apply ice to the affected area for 20 minutes at atime and remove ice for 30 minutes. Then, can apply ice again if needed. [facility] office contact information: Please contact our clinic call center at if you need to schedule or change an appointment. You can call my nurse, Shaye Clemens at [phone] if you have any questions or concerns Location: [facility] [address] [place] [address] [place] [address] [facility] [address] [place] [address] [place] [address] FOR MEDICAL EMERGENCIES PLEASE CALL 911 Sincerely, Ese Stockton PA-C Certified Physician Sales And Service Officer Orthopedic Surgery Department documented in this encounter Progress Notes * Ese Stockton PA-C - 06/17/2023 12:23 PM CDT [facility] Orthopedic Medicine Clinic Note Sherri Ramirez, 62 year old, female : 1960 CSN: [id number] Primary Care Physician: Provider Unknown HPI Date of this clinic visit: 06/17/2023 This is a 62 year old female with history of tobacco abuse smokes 1/2 PPD, who is here for new patient clinic appointment, regarding neck and back pain which has been going on for years. 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 Pain is located paraspinal neck pain, mostly traps. Denies any sharp, shooting, numbness, tingling or burning pain to her arms. She reports increased falls the last 1 year ago. She reports In the middle of summer 2022 she fell on the concrete and had a wound to her left leg she had to go to wound care for. She reports trouble going up and down the steps. She went to PT within the last 1 year at [facility] for bilateral legs. She reports falling due to tripping over things and trouble lifting her leg up high enough to go up her step in the front door- sx bilateral legs. She reports aching of her legs at times. She can stand for a few minutes and then has to lean on something to take pressure off her back . Patient does not have pain at night. Ambulates wit h motorized scooter when at the grocery store or going to be walking for a long period of time. Does not use an assist device when at home. For pain control the patient has used OTC medication with mild temporary relief. Leaning forward makes it better temporarily, and laying down or in her recliner makes it better. They have not participated in PT in the past for neck and back. They have not received steroid injections in the past. ROS otherwise negative. 06/17/2023 Patient-entered Ortho Intake Form Referring provider pcp Reason for visit Low Back/lumbar spine What are your symptoms? Pain How did this pain/injury begin? not sure When did your pain/injury start? couple years Does any other area/part of your body hurt? entire back Active Worker's Comp claim? No Pain level at rest 5 Pain level with activity 10 What makes your pain worse? activity Treatments tried Rest/activity modification Over the counter pain medication Currently employed? No Smoking status Current Smoker Alcohol intake? Yes Taking opioid/narcotic? No 06/17/2023 Patient-Reported Satisfaction Current state satisfactory? No Prior treatment? No Currently taking narcotics? No 06/17/2023 PROMIS Pain Interference PROMIS PI Score 68 (moderate) 06/17/2023 PROMIS Physical Function PROMIS PF Score 29 (severe dysfunction) 06/17/2023 Depression Screening PHQ-2 Score Incomplete Patient Health Questionnaire-2 Score 0 Review of Systems - Bowel/Bladder incontinence or retention: Denies - Numbness/paresthesias to extremities: Denies - Hand clumsiness/loss of fine motor skills: Denies - Balance problems: Denies Review of all other systems was negative. Objective Ht 1.524 m (5') Wt 96.6 kg (213 lb) PMHx No past medical history on file. PSHx No past surgical history on file. Social Hx Social History Tobacco Use ??? Smoking status: Every Day Packs/day: .5 Types: Cigarettes ??? Smokeless tobacco: Current Substance Use Topics ??? Alcohol use: Yes Family Hx family history is not on file. Allergies Allergies Allergen Reactions ??? Zoloft [Sertraline] Rash Medications Current Outpatient Medications Medication ??? albuterol HFA (Proventil; Ventolin; Proair) 108 (90 Base) MCG/ACT inhaler ??? losartan (Cozaar) 100 MG tablet ??? metoprolol tartrate IR (Lopressor) 50 MG tablet ??? nortriptyline (Pamelor) 50 MG capsule ??? omeprazole (PriLOSEC) 20 MG capsule ??? Symbicort 160-4.5 MCG/ACT inhaler ??? vitamin D3 (Cholecaciferol) 125 MCG (5000 UT) No current facility-administered medications for this visit. Physical Exam General appearance: Awake, cooperative, No acute distress Neck: -Tenderness to palpation: no midline, bilateral paraspinal, no step offs -ROM: diminished range with pain -No prior incisions noted -Spurling's Test negative Back: -Tenderness to palpation: upper thoracic and lower lumbar midline, bilateral paraspinal, no step offs -ROM: Forward Flexion diminished range with pain and Back Extension -No prior incisions noted Posture: -Erect posture with no cervical thrust, list, or torticollis noted -positive Sagittal Imbalance Bilateral Upper Extremity: - Motor: Shoulder Abduction (C5) 5/5 Elbow Extension (C7) 5/5 Elbow Flexion (C5-palm up; C6 - thumb up) 5/5 Wrist Extension (C6) 5/5 Wrist Flexion (C7) 5/5 Finger Flexion (C8) Right 4/5, Left 5/5 Finger Abduction (T1) 5/5 - Sensory: intact to light touch - Moyer's sign is negative - Reflexes: Biceps: Normal Triceps: Normal BR: Normal Bilateral Lower Extremity: - Motor: Hip Flexion (L2/3) 5/5 Knee Flexion 5/5 Knee Extension (L4) 5/5 Ankle Dorsiflexion (L5) 5/5 Great Toe Extension (L5) 5/5 Ankle Plantarflexion (S1) 5/5 - Sensation: intact to light touch distally - Straight Leg Raise: negative - Clonus: absent - Reflexes: Knee Jerk: Normal Achilles: Normal Babinski: not assessed Gait - Walks with antalgic gait Other findings: SI Joint Testing: no TTP Bilateral NORMAL HIP EXAM: No tenderness to palpation of hip. Range of motion is normal. There is no crepitus with range of motion. SKIN: Inspection and palpation of the skin of the lumbar region without eyrthema, edema, rashes, or lesions. VASCULAR: Bilateral lower extremity without edema, pallor, or rubor. PULMONARY: Unlabored respirations. Imaging Imaging: - lumbar X-rays images demonstrate slight dextrocurvature starting at L4 on AP alignment, open SI joints, slight hyper lordotic curve, moderate to severe disc space narrowing mostly L4-L5 and L5-S1 with grade 1 anterolisthesis of L4 on L5, osteophyte formation, facet arthropathy. - thoracic spine X-rays images demonstrate continued dextrocurvature on AP alignment, hyperkyphoticcurve, diffuse disc space narrowing to anterior body with osteophyte formation, facet arthropathy. - cervical spine X-rays images demonstrate normal AP alignment, loss of lordotic curve, diffuse disc space narrowing mostly C5-C6, osteophyte formation, facet arthropathy. Images were personally interpreted and reviewed by me today in clinic. Assessment/Plan: 62 year old female with chronic cervical, thoracic and lumbar spondylosis with no signs of radiculopathy, no signs of cervical myelopathy, and there is signs of neurogenic claudication with anterolisthesis of L4 on L5 Asked her if she wanted a walker or cane when leaving here today. She states she does not need assistance in her house. It is when she is out in public and when going up stairs. She denies needing a cane or walker at this time. Plan: Chronic periscapular pain on both sides - Plan: Ref to Physical Therapy - [facility] Cervical paraspinal muscle spasm - Plan: Ref to Physical Therapy - [facility] PT Lumbar paraspinal muscle spasm - Plan: Ref to Physical Therapy - [facility] Chronic midline low back pain without sciatica - Plan: Ref to Physical Therapy - [facility] Anterolisthesis of lumbar spine - Plan: Ref to Physical Therapy - [facility] Neurogenic claudication due to lumbar spinal stenosis - Plan: Ref to Physical Therapy - [facility] 1. Ms. Ramirez was counseled as to her diagnosis 2. Images reviewed in office with patient 3. She demonstrated understanding 4. Neuro exam reassuring. Patient with no red flag symptoms of back pain. 5. Recommend OTC NSAIDS, topical pain patches, Voltaren Gel, ice or heating pad or symptomatic relief. Discuss proper use of heating pad. 6. Will start in physical therapy. Discussed the importance of developing a home exercise program. 7. Encouraged to use proper technique when lifting heavy objects and to avoid aggravating factors. 8. Encouraged working on posture and preventing sagittal imbalance 9. Prescriptions: none 10. Follow up in 8 weeks 11. She will call in the interim with any questions or concerns. Patient will follow up if symptomspersist or worsen. 12. The patient understands and agrees with the plan. All questions answered. Ese Stockton PA-C 06/17/2023 1:40 PM * Shaye Clemens RN - 06/17/2023 11:55 AM CDT Chief Complaint: Chief Complaint Patient presents with ??? Pain Back Back pain Ht 1.524 m (5') Wt 96.6 kg (213 lb) documented in this encounter Plan of Treatment Scheduled Referrals Name Type Priority Associated Diagnoses Orde r Schedule Ref to Physical Therapy - [facility] Outpatient Referral Routine Chronic periscapular pain on both sides Cervical paraspinal muscle spasm Lumbar paraspinal muscle spasm Chronic midline low back pain without sciatica Anterolisthesis of lumbar spine Neurogenic claudication due to lumbar spinal stenosis 1 Occurrences starting 06/17/2023 until 06/16/2024 documented as of this encounter Visit Diagnoses Diagnosis Chronic periscapular pain on both sides- Primary Cervical paraspinal muscle spasm Spasm of muscle Lumbar paraspinal muscle spasm Other symptoms referable to back Chronic midline low back pain without sciatica Anterolisthesis of lumbar spine Neurogenic claudication due to lumbar spinal stenosis Spinal stenosis, lumbar region, with neurogenic claudication documented in this encounter Care Teams Tiler'S Assistant Relationship Specialty Start Date End Date Unknown, Provider PCP - General 06/17/23 documented as of this encounter
--- OUTSIDE RECORDS SUMMARY | 2024-04-08 10:13 | XMS_ITS | Clinical Summary ---
Author Organization [facility] Address [address] [facility] [place] [address] Care Team Providers Care Registered Nurse Renal Name Role Phone Unknown, Provider Primary Care Provider Unavaila ble Source Comments [facility],non-owned Affiliates and Associated Physician Practices is amultiple site organization consisting of ambulatory clinics and hospital sitesin [place], [place], [place] and [place]. This disclosure is being madepursuant to the Care Everywhere program and may not contain all information available regarding this patient. Last updated 17.[employer] Allergies Active Allergy Reactions Criticality Noted Date Comments Sertraline Rash Medium 01/18/2022 Medications * Be aware that medications may not be up to date on this document. Always verify current medications with the patient. Medication Sig [...] 06/17/2023 11:57 AM CDT Plan of Treatment Health Maintenance Due Date Last Done Comments COLOGUARD (AGES 45-75) - COL ON CA SCREENING 1960 COLON MONITORING 1960 COLONOSCOPY - COLON CA SCREENING 1960 CT COLONOGRAPHY - COLON CA SCREENING 1960 Colorectal Cancer Screening 1960 FIT - COLON CA SCREENING 1960 FLEX SIG - COLON CA SCREENING 1960 LIPID TESTING 1960 MAMMOGRAM 1960 PAP SMEAR 1960 PNEUMOCOCCAL VACCINE (1 of 2 - PCV) 07/10/1967 HIV SCREENING 1976 HEPATITIS C SCREENING 07/05/1979 DTAP/TDAP/TD VACCINES (1 - Tdap) 1980 ZOSTER VACCINE (1 of 2) 07/10/2011 Respiratory Syncytial Virus (RSV) Vaccine Pt: or over 60 yrs (1 - Risk 60-74 years 1-dose series) 2021 SCREENING FOR DIABETES 06/17/2023 COVID-19 VACCINE (2 - 2023-2 5 season) 2023 06/07/2020 INFLUENZA VACCINE (#1) 2023 04/28/2021 DEPRESSION SCREENING 04/01/2024 06/17/2023 HEPATITIS B VACCINE Aged Out No longe r eligible based on patient's age to complete this topic HIB VACCINE Aged Out No longer eligi ble based on patient's age to complete this topic HPV VACCINE Aged Out No longer eligi ble based on patient's age to complete this topic MENINGOCOCCAL VACCINE Aged Out No amanda shae eligible based on patient's age to complete this topic Care Teams Registered Nurse Renal Relationship Specialty Start Date End Date Unknown, Provider PCP - General 06/17/23
--- OUTSIDE RECORDS SUMMARY | 2024-04-08 10:13 | XMS_ITS | Encounter Summary ---
Author Organization [facility] Address [address] [place] [address] Care Team Providers Care Line Haul Owner Operator Name Role Phone Unavailable Primary Care Provider Unavailabl e Encounter Details Date Type Department Care Team (Late st Contact Info) Description 01/14/2024 External Device Data [facility] ABSTRACTION Provider, [...] st Contact Info) Description 04/14/2024 10:15 AM REHABILITATION ASSISTANT Office Visit [facility] Oncology and Hematology - [place] [address] [place] [address] [address] [place] [address] Dakota Watkins MD [address] [facility] [address] [place] [address] documented as of this encounter Visit Diagnoses Not on filedocumented in this encounter
--- OUTSIDE RECORDS SUMMARY | 2024-04-08 10:13 | XMS_ITS | Encounter Summary ---
Author Organization [facility] Address [address] [facility] [place] [address] Care Team Providers Care Information Technology Intern Name Role Phone Unavailable Primary Care Provider Unavailabl e Encounter Details Date Type Department Care Team (Latest Contact Info) Description 05/22/2023 Travel Social History Tobacco Use Types Packs/Day Years [...]
--- OUTSIDE RECORDS SUMMARY | 2024-04-08 10:13 | XMS_ITS | Encounter Summary ---
Author Organization [facility] [employer] [facility] Address [address] [place] [address] Care Team Providers Care Video System Repairer Name Role Phone Unavailable Primary Care Provider Unavailabl e Reason for Referral * CT Scan (Routine) - Closed Specialty Diagnoses / Procedures Referred By Ronnie t Referred To Contact Diagnoses Malignant neoplasm of upper lobe of left lung Procedures CT CHEST W CONTRAST Dakota Watkins MD [address] [place] [address] [place] [address] Referral ID Status Reason Start Date Expiration Date V isits Requested Visits Authorized [id number] Closed [facility] CTS 01/20/2024 02/19/2025 1 1 Encounter Details Date Type Department Care Team (Late st Contact Info) Description 01/20/2024 4:30 PM CDT Telephone Check Up [facility] Oncology and Hematology [facility] [address] [place] [address] [address] [place] [address] Dakota Watkins MD [address] [place] [address] Malignant neoplasm of upper lobe of left lung (Primary Dx) Social History Tobacco Use Types Packs/Day Years Used Date Smoking Tobacco: Every Day Cigarettes 1 50.6 Started: 08/31/2023 Alcohol Use Standard Drinks/Week Comments Yes 0 (1 standard drink = 0.6 oz pur e alcohol) socially Sex and Gender Information Value Date Recorded Sex Assigned at Not on file Gender Identity Not on file Sexual Orientation Not on file documented as of this encounter Progress Notes * Dakota Watkins MD - 01/20/2024 5:39 PM CDT HEMATOLOGY / ONCOLOGY PROGRESS NOTE Patient Identification: Name: Sherri Ramirez Age: 63 y.o. Sex: female : 1960 DIAGNOSIS Non-small cell lung cancer adenocarcinoma histology status post CT-guided biopsy of the left upper lobe lung mass done on October 21, 2023. CURRENT TREATMENT SBRT treatment to the left upper lobe 2 lung lesions. TREATMENT HISTORY SUBJECTIVE This is a phone visit with patient. She has been tolerating SBRT treatment well. She had 1 more treatment left. Denies any other new complaints. Review of system Constitutional: Patient did not mention fevers, sweats, complain of tiredness and fatigue HEENT: Patient did not mention sinus congestion, hearing or vision problems Respiratory: Patient did not mention cough, dyspnea, wheeze Cardiovascular: Patient did not mention chest pain, exertional chest pressure/discomfort, nausea, syncope, complain of shortness of breath GI: Patient did not mention constipation, diarrhea, dsyphagia, reflux symptoms, vomiting, melena : Patient did not mention dysuria, frequency, incontinence, urgency Integumentary system: no lymphadenopathy, sweats, flushing Musculoskeletal: Patient not mention: myalgia, arthralgia Neurological: Patient did not mention blurry or disturbed vision, numbness/weakness, dizziness Skin: No lumps, bumps or rashes. 12 point review of system was reviewed Objective: Vital signs in last 24 hours: As per nursing note Exam: This is a phone visit [facility]@ Assessment: Plan: There are no problems to display for this patient. Non-small cell lung cancer adenocarcinoma histology status post CT-guided biopsy of the left upper lobe lung mass done on October 21, 2023. PET scan done on October 07 showed 1.7 cm left upper lobe lung nodule with SUV of 8.5. There is [id number] mm nodule with SUV of 5.1 in the left upper lobe . Thoracic surgery consultation from [facility] noted. There are 2 lesions in the left upper lobe both concerning for lung cancer with FDG avidity of the spine but this was not read as concerning on the CT scan. Patient has a history of severe degenerative disc disease involving the spine. Patient was found not to be a surgical candidate due to poor lung function testing. Bone scan performed on December 04 showed no evidence of metastatic disease. Patient is on SBRT treatment to the 2 lung lesions and has 1 more treatment left. I will order CT scan chest in 2 months and follow-up in 2 months. Right upper extremity swelling. Doppler study done in November showed no evidence of DVT. COPD. She will follow-up with the pulmonary service. Hypertension. Stable. Follow-up in [address] scan. 01/20/2024 Dakota Watkins MD This encounter was completed via audio-only two way synchronous communication. Patient's identity confirmed yes Patient gave verbal consent to have these services billed to their insurance and expressed understanding that co-insurance and deductible may apply: yes Time spent by the provider delivering the care documented in this encounter 20 minutes. documented in this encounter Plan of Treatment Upcoming Encounters Date Type Department Care Team (Late st Contact Info) Description 04/14/2024 10:15 AM LINKER UP Office Visit [facility] Oncology and Hematology - Chris [address] [facility] [address] [place] [address] Dakota Watkins MD [address] [facility] [address] [place] [address] Scheduled Orders Name Type Priority Associated Diagnoses Orde r Schedule CBC WITH DIFFERENTIAL Lab Stat Malignant neoplasm of upper lobe of left lung Expected: 03/16/2024, Expires: 01/19/2025 COMPREHENSIVE METABOLIC PANEL Lab Stat Malignant neoplasm of upper lobe of left lung Expected: 03/16/2024, Expires: 01/19/2025 CT CHEST W CONTRAST Imaging Routine Malignant neoplasm of upper lobe of left lung Expected: 03/21/2024, Expires: 01/19/2025 documented as of this encounter Visit Diagnoses Diagnosis Malignant neoplasm of upper lobe of left lung- Primary documented in this encounter
--- OUTSIDE RECORDS SUMMARY | 2024-04-08 10:13 | XMS_ITS | Encounter Summary ---
Author Organization [facility] Address [address] [place] [address] Care Team Providers Care Dancing Master Name Role Phone Unavailable Primary Care Provider Unavailabl e Reason for Visit * Reason Comments Thyroid Problem Encounter Details Date Type Department Care Team (Latest Contact Info) Description 01/18/2022 1:00 PM CDT Office Visit [facility] [address] [place] [address], [facility] [place] [id number] Rene Caraballo MD [address] [place] [address] [place] [address] Hypercalcemia (Primary Dx); Essential hypertension; RAISSA (obstructive sleep apnea); Simple chronic bronchitis (HCC); NAFLD (nonalcoholic fatty liver disease); Hypovitaminosis D; Gastroesophageal reflux disease, unspecified whether esophagitis present Social History Tobacco Use Types Packs/Day Years [...] - Inhaled Oxygen Concentration - - Weight 97 kg (213 lb 12.8 oz) 01/18/2022 1:05 PM CDT Height 152.4 cm (5') 01/18/2022 1:05 PM CDT Body Mass Index 41.75 01/18/2022 1:05 PM CDT documented in this encounter Patient Instructions * Patient Instructions* Milton Jacobson - 01/18/2022 12:58 PM CDT If you have an Insulin Pump, Meter or a Continuous Glucose Monitor, please BRING IT TO EVERY VISIT and present it to the Endo rooming staff when you arrive in clinic. APPOINTMENTS: option 1 or you can send a [employer] message. Normal business hours are from 8:00 am to 4:30 pm Saturday through Saturday. Fax# is [phone]. REFILL REQUESTS: contact your pharmacy who will reach out to us. If you have changes to your prescription, you will need to contact us directly at [phone] and select option 3 or send your [employer] message. We request that all prescription refills be requested during regular office phone hours. If your prescription requires a prior authorization, it may take several days for us to get approval from [employer] company before we can refill your prescription. Please do not wait until you are completely out before contacting us. MEDICAL EMERGENCY: Please call 911 or go to the nearest Emergency Room. After hours urgent calls that cannot wait until phone lines are open on the next business day are given to the [employer] physician credit professional. Please call [phone] and identify yourself as a patient in our practice needing to speak to [employer]. The laborer operator will contact the physician credit professional. You can generally expect a return call within 30 minutes. On weekends, physicians are seeing hospitalized patients and there may be a longer wait. Test and laboratory results: Our practice typically reports lab and test results through letters orMyChart. Please allow 10 days from when your tests are completed to receive the results in the mail. Labs performed outside of [facility] facility, [facility] or [facility] may delay the results getting to us. Please contact the lab and request that they are faxed to us at [phone]. IF GOING TO [facility] or [facility]- TAKE LAB ORDER WITH YOU or they may turn you away [facility]'s missed appointment policy is: Patients with 3 consecutively missed appointments OR 3 missed appointments in a 12 month period will no longer be seen by Endocrinology. They will be asked to seek consultation outside of [facility]. A missed appointment is defined as: Arriving to a scheduled appointment too late to be seen (Patients who arrive to clinic later than their scheduled appointment time may not be seen) Not showing up or calling 24-48 hours prior to an appointment An appointment cancelled less than 24 hours in advance ADDRESS: [address] [place] [address] Website: [email or web address] for additional information about [facility] and an interactive health encyclopedia. documented in this encounter Progress Notes * Rene Caraballo MD - 01/18/2022 1:29 PM CDT Sherri Ramirez is a 61 year old female ith Encounter Diagnoses Name Primary? Hypercalcemia Yes ??? Essential hypertension ??? RAISSA (obstructive sleep apnea) ??? Simple chronic bronchitis (CMS/HCC) ??? NAFLD (nonalcoholic fatty liver disease) Referred for clacium 10.4 ROS heaaechs -neg Eye dry Ear normal No soretroat COPD- on phlegm ?sleep apnea No palpitations Gi - occ heart No Dysuria No kidney stones BP 170/92 (BP SITE: RIGHT ARM, BP POSITION: SITTING, BP CUFF SIZE: 12) Ht 5' (1.524 m) Wt 213 lb 12.8 oz (97 kg) Physical Examination: General appearance - alert, well appearing, and in no distress Mental status - alert, oriented to person, place, and time Neck - supple, no significant adenopathy Lymphatics - no palpable lymphadenopathy, no hepatosplenomegaly Chest - clear to auscultation, no wheezes, rales or rhonchi, symmetric air entry Heart - normal rate, regular rhythm, normal S1, S2, no murmurs, rubs, clicks or gallops Abdomen - soft, nontender, nondistended, no masses or organomegaly Extremities - peripheral pulses normal, no pedal edema, no clubbing or cyanosis Plan one value aisrvbg68.4 in pm will repeat fasting Fib -4 calculated age 61 , ASAT 32, alt 28 plt 356 = 7.5 refer to fibroscan refer Sleep study Lab bmp urine calcium creatinine renin aldosterone lipid rtc 3month documented in this encounter Plan of Treatment Scheduled Orders Name Type Priority Associated Diagnoses Orde r Schedule BASIC METABOLIC PANEL (CALCIUM TOTAL) Lab Routine Hypercalcemia Ordered: 01/18/2022 RENIN ACTIVITY Lab Routine Essential hypertension Ordered: 01/18/2022 ALDOSTERONE BLOOD Lab Routine Essential hypertension Ordered: 01/18/2022 CALCIUM URINE RANDOM Lab Routine Hypercalcemia Ordered: 01/18/2022 CREATININE URINE RANDOM Lab Routine Hypercalcemia Ordered: 01/18/2022 LIPID PROFILE Lab Routine NAFLD (nonalcoholic fatty liver disease) Ordered: 01/18/2022 documented as of this encounter Visit Diagnoses Diagnosis Hypercalcemia- Primary Essential hypertension RAISSA (obstructive sleep apnea) Obstructive sleep apnea (adult) (pediatric) Simple chronic bronchitis (HCC) Simple chronic bronchitis NAFLD (nonalcoholic fatty liver disease) Other chronic nonalcoholic liver disease Hypovitaminosis D Unspecified vitamin D deficiency Gastroesophageal reflux disease, unspecified whether esophagitis present documented in this encounter
--- OUTSIDE RECORDS SUMMARY | 2024-04-08 10:14 | XMS_ITS | Encounter Summary ---
Author Organization [facility] [employer] [facility] Address [address] [place] [address] Care Team Providers Care Crane Mechanic Name Role Phone Unavailable Primary Care Provider Unavailabl e Encounter Details Date Type Department Care Team (Late Contact Info) Description 11/01/2023 Orders Only [facility] Oncology and Hematology [facility] [address] [place] [address] [place] [address] [place] [address] (Fax) Social History Tobacco Use Types Packs/Day Years [...] Encounters Date Type Department Care Team (Late Contact Info) Description 04/14/2024 10:15 AM TAG MACHINE OPERATOR Office Visit [facility] Oncology and Hematology [facility] [address] [place] [address] Dakota Watkins MD [address] [facility] [address] [place] [address] documented as of this encounter Procedures Procedure Name Priority Date/Time Associated Diagnosis Comments PATHOLOGY REPORT Routine 10/21/2023 12:45 PM CDT documented in this encounter Results * PATHOLOGY REPORT (10/21/2023 12:45 PM CDT) Ronaldo Arriaga MD PATHOLOGY/CYTOLO GY ORDERABLES documented in this encounter Visit Diagnoses Not on filedocumented in this encounter
--- OUTSIDE RECORDS SUMMARY | 2024-04-08 10:14 | XMS_ITS | Encounter Summary ---
Author Organization [facility] [employer] [facility] Address [address] [place] [address] Care Team Providers Care Patented Hogshead Assembler Name Role Phone Unavailable Primary Care Provider Unavailabl e Encounter Details Date Type Department Care Team (Late Contact Info) Description 10/07/2023 Orders Only [facility] [address] [place] [phone] Dakota Watkins MD [address] [place] [address] Lung nodule (Primary Dx) Social History Tobacco Use Types [...] st Contact Info) Description 04/14/2024 10:15 AM ADMINISTRATIVE HEARING OFFICER Office Visit [facility] Oncology and Hematology [address] [place] [address] Dakota Watkins MD [address] [place] [address] [place] [address] documented as of this encounter Visit Diagnoses Diagnosis Lung nodule- Primary Solitary pulmonary nodule documented in this encounter
--- OUTSIDE RECORDS SUMMARY | 2024-04-08 10:14 | XMS_ITS | Encounter Summary ---
Author Organization [facility] [employer] [facility] Address [address] [place] [address] Care Team Providers Care Tile Applicator Name Role Phone Unavailable Primary Care Provider Unavailabl e Reason for Referral * PET Scan (Routine) - Closed Specialty Diagnoses / Procedures Referred By Ronnie t Referred To Contact Diagnoses Lung nodule Procedures PET TUMOR IMG W CT SKB Dakota King MD [address] [place] [address] [place] [address] Referral ID Status Reason Start Date Expiration Date V isits Requested Visits Authorized [id number] Closed [facility] CTS 09/25/2023 10/25/2024 1 1 Reason for Visit * Reason Comments Establish Care Cancer Encounter Details Date Type Department Care Team (Late st Contact Info) Description 09/25/2023 1:30 PM CDT Office Visit [facility] Oncology and Hematology [place] [address] [facility] [address] [place] [address] Dakota Watkins MD [address] [place] [address] Lung nodule (Primary Dx) Social History Tobacco Use Types Packs/Day Years Used Date Smoking Tobacco: Every Day Cigarettes 1 50.6 Started: 08/31/2023 Tobacco Cessation:Ready to Q uit: Not Asked Alcohol Use Standard Drinks/Week Comments Yes 0 (1 standard drink = 0.6 oz pur e alcohol) socially Sex and Gender Information Value Date Recorded Sex Assigned at Not on file Gender Identity Not on file Sexual Orientation Not on file documented as of this encounter Last Filed Vital Signs Vital Sign Reading Time Taken Comments Blood Pressure 135/83 09/25/2023 1:36 PM CDT Pulse 76 09/25/2023 1:36 PM CDT Temperature 36.8 ??C (98.2 ??F) 09/25/2023 1:33 PM CD T Respiratory Rate 18 09/25/2023 1:33 PM CDT Oxygen Saturation 91% 09/25/2023 1:33 PM CDT Inhaled Oxygen Concentration - - Weight 98.4 kg (217 lb) 09/25/2023 1:33 PM CDT Height 152.4 cm (5') 09/25/2023 1:33 PM CDT Body Mass Index 42.38 09/25/2023 1:33 PM CDT documented in this encounter Progress Notes * Dakota Watkins MD - 09/25/2023 2:13 PM CDT Hematology-oncology consult Note Requesting Physician Primary Care Physician No primary care provider on file. Problem list There is no problem list on file for this patient. Previous TREATMENT ? Measurable Disease ? Reason for Visit Sherri Ramirez is a 63 y.o. female who was referred for consultation for lung mass. History of present illness This is a 63-year-old obese female with history of hypertension and degenerative disc disease along with history of smoking 1 pack/day for 40 years duration now smoking less than 1 pack a day went to the ER with increasing shortness of breath on September 13. CT scan of the chest was done thatshowed nodules in the left upper lobe. There was 1.2 x 1.1 cm left upper lobe nodule and another one 1.3 cm. She has some cough without productive sputum. Denies any weight loss. Denies any headache and seizures. She has some lower back pain. No other new complaints. Past Medical History Past Medical History: Diagnosis Date COPD (chronic obstructive pulmonary disease) Generalized anxiety disorder Heartburn Hypertension Surgical History No past surgical history on file. Medications Current Outpatient Medications Medication Sig Dispense Refill albuterol sulfate 90 mcg/actuation aero powdr breath act w/sensor Take by inhalation. predniSONE (DELTASONE) 50 mg tablet Take 50 mg by mouth daily. budesonide-formoteroL (SYMBICORT) 160-4.5 mcg/actuation HFA Aerosol Inhaler Take 2 Puffs by inhalation 2 times daily. multivit-min/calc/biotin/D3/FA (BIOTIN PLUS-CALCIUM AND VIT D3 ORAL) Take by mouth. nortriptyline (PAMELOR) 50 mg capsule Take 50 mg by mouth daily at bedtime. metoprolol tartrate (LOPRESSOR) 50 mg tablet Take 50 mg by mouth 2 times daily. losartan (COZAAR) 100 mg tablet Take 100 mg by mouth daily. No current facility-administered medications for this visit. Allergies Allergies Allergen Reactions Sertraline Rash Immunizations: There is no immunization history on file for this patient. Family History Family History Problem Relation Name Age of Onset Heart Disease Father Heart Disease Mother Diabetes Mother No Known Problems Brother No Known Problems Sister Breast Cancer Paternal Aunt Social History Social History Tobacco Use Smoking status: Every Day Current packs/day: 0.10 Average packs/day: 1 pack/day for 50.1 years (50.0 ttl pk-yrs) Types: Cigarettes Start date: 08/31/2023 Smokeless tobacco: Not on file Substance Use Topics Alcohol use: Yes Comment: socially Review of Systems Constitutional: Patient did not mention fever; no night sweats; no anorexia; no weight loss; no fatique NEENT: Patient did not mention headache; no change in vision; no change in hearing; no sore throat;no dysphagia Respiratory: Complain of shortness of breath; no pleuritic chest pain; no cough; no hemoptysis Cardiac: Patient did not mention cardiac-like chest pain; no palpitations; no orthopnea; no PND; complain of HUNG Breasts: Patient did not mention tenderness; no masses GI: Patient did not mention abdominal pain; no nausea; no vomiting; no diarrhea; no hematochezia; no melena : Patient did not mention dysuria; no frequency; no hesitancy; no hematuria TAILOR GARMENT FITTER: Musculosketetal: Complain of back pain Skin: Patient did not mention pruritis; no rash; no petechiae; no ecchymoses Endocrine: Patient did not mention polydipsia; no polyuria; no unusual weight gain Neuro: Patient did not mention headache; no change in vision; no sensory changes; no muscle weakness; no confusion; no seizures Psych: Patient did not mention anxiety; no depression; Physical Exam Vitals: As per nursing note Constitutional: Well developed, well nourished, no acute distress, non-toxic appearance Teeth and gum. No signs of infection or swelling. Eyes: PERRL, conjunctiva normal HEENT: Atraumatic, external ears normal, nose normal, oropharynx moist, no pharyngeal exudates. no sinus tenderness Neck- normal range of motion, no tenderness, supple Respiratory: No respiratory distress, normal breath sounds, no rales, no wheezing . Cardiovascular: Normal rate, normal rhythm, no murmurs, no gallops, no rubs GI: Soft, nondistended, normal bowel sounds, nontender, no splenomegaly, no hepatomegaly, no mass, no rebound, no guarding : No costovertebral angle tenderness Musculoskeletal: No edema, no tenderness, no deformities. Back- no tenderness Integument: Well hydrated, no rash, Digits and nails inspection normal Lymphatic: No lymphadenopathy noted Neurologic: Alert & oriented x 3, CN 2-12 normal, normal motor function, normal sensory function, no focal deficits noted Psychiatric: Speech and behavior appropriate ? labs No results found for this or any previous visit (from the past 24 hour(s)). Pathology ? Imaging & Other Studies Performance Status? Assessment / Plan: ? Lung nodules. Patient is a pleasant 63-year-old obese female with history of hypertensionand degenerative disc disease along with history of smoking 1 pack/day for more than 40 years duration went to the ER with worsening of shortness of breath. CT scan of the chest was done. CT chest done on September 13 showed 1.2 x 1.1 cm left upper lobe nodule and 1.3 cm nodule in the periphery. Clinically she is symptomatic with shortness of breath and complaint of back pain. She does have some coughwithout any productive sputum. These findings are worrisome for lung cancer given her long history of smoking. After long discussion we decided to proceed with PET scan and based on the PET scan we will order the lung nodule biopsy. I have answered all the questions to patient and the son satisfaction. Hypertension. She is on metoprolol and losartan. COPD. She is not on oxygen but uses albuterol inhaler and Symbicort inhaler. Thank you very much for allowing me to participate in Sherri Ramirez's evaluation and management. Please feel free to contact if I can be of any further assistance in your patient???s care requiring hematology or oncology evaluation. Sincerely, ? ? Dakota Watkins M.D. cell TOBACCO COUNSELING She was counseled to discontinue tobacco/nicotine use. Dakota Watkins MD ,09/25/2023 2:13 PM ? Total time spent 60 minutes, two third of the total time spent counseling patient [id number]. CC:? documented in this encounter Plan of Treatment Upcoming Encounters Date Type Department Care Team (Late st Contact Info) Description 04/14/2024 10:15 AM TUNA PURSE SEINER Office Visit [facility] Oncology and Hematology - Chris [address] [facility] [address] [place] [address] Dakota Watkins MD [address] [facility] [address] [place] [address] Scheduled Orders Name Type Priority Associated Diagnoses Orde r Schedule PET TUMOR IMG W CT SKB MDTH Imaging Routine Lung nodule Expected: 09/26/2023, Expires: 09/24/2024 documented as of this encounter Visit Diagnoses Diagnosis Lung nodule- Primary Solitary pulmonary nodule documented in this encounter
--- OUTSIDE RECORDS SUMMARY | 2024-04-08 10:14 | XMS_ITS | Encounter Summary ---
Author Organization [facility] [employer] [facility] Address [address] [place] [address] Care Team Providers Care Mixer Driver Name Role Phone Unavailable Primary Care Provider Unavailabl e Reason for Visit * Reason Onset Date Comments CT Lung Biopsy 10/16/2023 LVM w/ patient t o contact the office regarding her CT Lung Biopsy Encounter Details Date Type Department Care Team (Late st Contact Info) Description 10/16/2023 Telephone [facility] Oncology and Hematology - Chris [address] [facility] [address] [place] [address] Dakota Watkins MD [address] [facility] [address] [place] [address] CT Lung Biopsy (LVM w/ patient to contact the office regarding her CT Lung Biopsy ) Social History Tobacco Use Types Packs/Day [...] encounter Miscellaneous Notes * Telephone Encounter - Yeny La - 10/16/2023 9:42 AM CDT LVM to inform patient that her CT Biopsy is in a pending status [facility]. Will contact the patient to provide Biopsy and F/U info once biopsy appt is approved and scheduled. documented in this encounter Plan of Treatment Upcoming Encounters Date Type Department Care Team (Late st Contact Info) Description 04/14/2024 10:15 AM MAINTENANCE COORDINATOR Office Visit [facility] Oncology and Hematology - Chris [address] [facility] [address] [place] [address] Dakota Watkins MD [address] [facility] [address] [place] [address] documented as of this encounter Visit Diagnoses Not on filedocumented in this encounter
--- OUTSIDE RECORDS SUMMARY | 2024-04-08 10:14 | XMS_ITS | Encounter Summary ---
Author Organization [facility] Address [address] [place] [address] Care Team Providers Care Project Portfolio Analyst Name Role Phone Unavailable Primary Care Provider Unavailabl e Encounter Details Date Type Department Care Team (Late st Contact Info) Description 11/20/2023 External Device Data STL ABSTRACTION Provider, Abstract [...] st Contact Info) Description 04/14/2024 10:15 AM COOKER TENDER Office Visit [facility] Oncology and Hematology - Chris [address] [place] [address] [address] [place] [address] Dakota Watkins MD [address] [facility] [address] [place] [address] documented as of this encounter Visit Diagnoses Not on filedocumented in this encounter
--- OUTSIDE RECORDS SUMMARY | 2024-04-08 10:14 | XMS_ITS | Encounter Summary ---
Author Organization [facility] [employer] [facility] Address [address] [place] [address] Care Team Providers Care Mathematics Department Chair Name Role Phone Unavailable Primary Care Provider Unavailabl e Encounter Details Date Type Department Care Team (Late Contact Info) Description 12/04/2023 Orders Only [facility] Oncology [facility] Hematology [facility] [address] [place] [address] Dakota [facility] [address] [place] [address] Social History Tobacco Use Types Packs/Day Years [...] (Late Contact Info) Description 04/14/2024 10:15 AM RFID SYSTEMS ENGINEER Office Visit [facility] Oncology and Hematology Chris [address] [place] [address] Dakota Watkins MD [address] [place] [address] documented as of this encounter Procedures Procedure Name Priority Date/Time Associated Diagnosis Comments US DOPPLER VENOUS ARM RIGHT Routine 12/03/2023 12:55 PM CDT documented in this encounter Results * US DOPPLER VENOUS ARM RIGHT (12/03/2023 12:55 PM CDT) Anatomical Region Laterality Modality Upper Extremity Other Dakota Watkins MD ORDERABLES documented in this encounter Visit Diagnoses Not on filedocumented in this encounter
--- OUTSIDE RECORDS SUMMARY | 2024-04-08 10:14 | XMS_ITS | Encounter Summary ---
Author Organization [facility] Address [address] [place] [address] Care Team Providers Care Analysis Internship Name Role Phone Unavailable Primary Care Provider Unavailabl e Encounter Details Date Type Department Care Team (Late st Contact Info) Description 11/05/2023 External Device Data STL ABSTRACTION Provider, Abstract [...] st Contact Info) Description 04/14/2024 10:15 AM INSTALLER METAL FLOORING Office Visit [facility] Oncology and Hematology - [place] [address] [place] [address] [address] [place] [address] Dakota Watkins MD [address] [facility] [address] [place] [address] documented as of this encounter Visit Diagnoses Not on filedocumented in this encounter
--- OUTSIDE RECORDS SUMMARY | 2024-04-08 10:14 | XMS_ITS | Encounter Summary ---
Author Organization [facility] Address [address] [place] [address] Care Team Providers Care Landscape Painter Name Role Phone Unavailable Primary Care Provider Unavailabl e Encounter Details Date Type Department Care Team (Late st Contact Info) Description 12/10/2023 4:30 PM CDT Telephone Check Up [facility] Oncology and Hematology - Chris [address] [facility] [address] [place] [address] Dakota Watkins MD [address] [facility] [address] [place] [address] Social History Tobacco Use Types Packs/Day [...] Progress Notes * Dakota Watkins MD - 12/10/2023 4:21 PM CDT HEMATOLOGY / ONCOLOGY PROGRESS NOTE Patient Identification: Name: Sherri Ramirez Age: 63 y.o. Sex: female : 1960 DIAGNOSIS Non-small cell lung cancer adenocarcinoma histology status post CT-guided biopsy of the left upper lobe lung mass done on October 21, 2023. CURRENT TREATMENT Expectant TREATMENT HISTORY SUBJECTIVE This is a phone visit with patient to discuss the bone scan findings. She denies any bone pain. Denies any other new complaints. Review of system Constitutional: Patient did not mention fevers, sweats, denies any tiredness and fatigue, weight and appetite stable HEENT: Patient did not mention sinus congestion, [...] nodule with SUV of 8.5. There is [id number] mm nodule with SUV of 5.1 in the left upper lobe . Thoracic surgery consultation from [facility] noted. There are 2 lesions in the [...] 04 showed no evidence of metastatic disease. Radiation oncology input noted and plan for SBRT treatment for both of these lesions noted. I plan to see her back in [address] scan will be done in that visit. Right upper extremity swelling. Doppler study done on December 02 showed no evidence of DVT. COPD. She will continue to follow-up with the pulmonary service. Hypertension. Stable. Follow-up in 6 weeks. 12/10/2023 Dakota Watkins MD This encounter was completed [...] st Contact Info) Description 04/14/2024 10:15 AM MIRROR SPECIALIST Office Visit [facility] Oncology and Hematology - Gepp [address] [facility] [address] [place] [address] Dakota Watkins MD [address] [facility] [address] [place] [address] documented as of this encounter Visit Diagnoses Not on filedocumented in this encounter
--- OUTSIDE RECORDS SUMMARY | 2024-04-08 10:14 | XMS_ITS | Encounter Summary ---
Author Organization [facility] Address [address] [place] [address] Care Team Providers Care Fitness Sales Consultant Name Role Phone Unavailable Primary Care Provider [...] st Contact Info) Description 04/14/2024 10:15 AM FISHERIES OFFICER Office Visit [facility] Oncology and Hematology - Chris [address] [place] [address] Dr [address] [place] [address] Dakota Watkins MD [address] [facility] [address] [place] [address] documented as of this encounter Visit Diagnoses Not on filedocumented in this encounter
--- OUTSIDE RECORDS SUMMARY | 2024-04-08 10:14 | XMS_ITS | Encounter Summary ---
Author Organization [facility] Address [address] [place] [address] Care Team Providers Care Environmental Services Supervisor Name Role Phone Unavailable Primary Care Provider Unavailabl e Encounter Details Date Type Department Care Team (Late st Contact Info) Description 10/01/2023 External Device Data STL ABSTRACTION Provider, Abstract [...] st Contact Info) Description 04/14/2024 10:15 AM SHIRRING MACHINE OPERATOR Office Visit [facility] Oncology and Hematology - Chris [address] [place] [address] Dr [address] [place] [address] Dakota Watkins MD [address] [facility] [address] [place] [address] documented as of this encounter Visit Diagnoses Not on filedocumented in this encounter
--- OUTSIDE RECORDS SUMMARY | 2024-04-08 10:14 | XMS_ITS | Encounter Summary ---
Author Organization [facility] [employer] [facility] Address [address] [place] [address] Care Team Providers Care Finishing Supervisor Plastic Sheets Name Role Phone Unavailable Primary Care Provider Unavailabl e Reason for Visit * Reason Onset Date Comments PET Scan review 10/08/2023 Encounter Details Date Type Department Care Team (Late st Contact Info) Description 10/08/2023 Telephone [facility]3] Oncology and Hematology - Chris [address] [facility] [address] [place] [address] Dakota Watkins MD [address] [facility] [address] [place] [address] PET Scan review Social History Tobacco Use Types Packs/Day Years [...] encounter Miscellaneous Notes * Telephone Encounter - Kesha Coyle - 10/08/2023 7:27 AM CDT Patient is going to metal pickling equipment operator medicine this morning. She said that she has her PET scan at 0930 today. She is going to try to do the test with just the one dose and see if she is able to do it. * Telephone Encounter - Kesha Coyle - 10/08/2023 7:27 AM CDT ----- Message from Dakota Watkins MD sent at 10/07/2023 4:39 PM CDT ----- Regarding: RE: PET Scan I have ordered tramadol that she will take 12 hours and 3 hours before the PET scan. ----- Message ----- From: Kesha Coyle Sent: 10/07/2023 1:57 PM CDT To: Dakota Watkins MD Subject: PET Scan Patient called and stated that she has problems with her back and can't lay down for long periods of time. She also has COPD so its hard for her to lay flat. She would like to know if something couldbe called in for her to take before her scan tomorrow. Please advise. documented in this encounter Plan of Treatment Upcoming Encounters Date Type Department Care Team (Late st Contact Info) Description 04/14/2024 10:15 AM LAB RN Office Visit [facility]3] Oncology and Hematology - Chris [address] [facility] [address] [place] [address] Dakota Watkins MD [address] [facility] [address] [place] [address] documented as of this encounter Visit Diagnoses Not on filedocumented in this encounter
--- OUTSIDE RECORDS SUMMARY | 2024-04-08 10:14 | XMS_ITS | Encounter Summary ---
Author Organization [facility] Address [address] [place] [address] Care Team Providers Care Paralegal Assistant Name Role Phone Unavailable Primary Care Provider Unavailabl e Reason for Referral * CT Scan (Routine) - Closed Specialty Diagnoses / Procedures Referred By Ronnie hummel Referred To Contact Diagnoses Lung nodule Procedures CT BIOPSY LUNG LEFT Dakota Watkins MD [address] [employer] [address] [place] [phone] [place] [address] Referral ID Status Reason Start Date Expiration Date V isits Requested Visits Authorized [id number] Closed STL CTS 10/15/2023 11/14/2024 1 1 Encounter Details Date Type Department Care Team (Late st Contact Info) Description 10/15/2023 3:45 PM CDT Telephone Check Up [facility] Oncology and Hematology [address] [address] Dakota Watkins MD [address] [employer] [address] [place] [address] Lung nodule (Primary Dx) Social [...] Progress Notes * Dakota Watkins MD - 10/15/2023 4:57 PM CDT HEMATOLOGY / ONCOLOGY PROGRESS NOTE Patient Identification: Name: Sherri Ramirez Age: 63 y.o. Sex: female : 1960 DIAGNOSIS Left upper lobe lung nodule CURRENT TREATMENT Expectant TREATMENT HISTORY SUBJECTIVE This is a phone visit with patient. Patient still have some shortness of breath without any chest pain. No other new complaint. Review of system Constitutional: Patient did not mention fevers, sweats, fatigue, malaise, weight loss HEENT: Patient did not mention sinus congestion, [...] dizziness Skin: No lumps, bumps or rashes. Objective: Vital signs in last 24 hours: As per nursing note Exam: This is a phone visit [facility] @IMAGEIMP@ Assessment: Plan: There are no problems to display for this patient. Left upper lobe lung nodule. PET scan done on October 07 showed 1.7 cm left upper lobe lung nodule withSUV of 8.5. There is another 10 mm nodule with SUV of 5.1. I will order CT-guided biopsy of the left upper lobe lung nodules. Follow-up with me in couple of weeks. COPD. Patient has been followed by pharmacy operations specialist. Hypertension. Stable on losartan and metoprolol. ? TOBACCO COUNSELING She was counseled to discontinue tobacco/nicotine use. 10/15/2023 Dakota Watkins MD This encounter was completed via audio-only two way synchronous communication. Patient's identity confirmed yes Patient gave verbal consent to have these services billed to their insurance and expressed understanding that co-insurance and deductible may apply: yes Time spent by the provider delivering the care documented in this encounter 25 minutes. documented in this encounter Plan of Treatment Upcoming Encounters Date Type Department Care Team (Late st Contact Info) Description 04/14/2024 10:15 AM LOAD PLANNER Office Visit [facility] Oncology and Hematology - Chris [address] [facility] [address] [place] [address] Dakota Watkins MD [address] [facility] [address] [place] [address] Scheduled Orders Name Type Priority Associated Diagnoses Orde r Schedule CT BIOPSY LUNG LEFT Imaging Routine Lung nodule Expected: 10/16/2023, Expires: 10/14/2024 documented as of this encounter Visit Diagnoses Diagnosis Lung nodule- Primary Solitary pulmonary nodule documented in this encounter
--- OUTSIDE RECORDS SUMMARY | 2024-04-08 10:14 | XMS_ITS | Encounter Summary ---
Author Organization [facility] [email or web address] [facility] Address [address] [place] [address] Care Team Providers Care Cold Water Machine Operator Name Role Phone Unavailable Primary Care Provider Unavailabl e Encounter Details Date Type Department Care Team (Late Contact Info) Description 12/06/2023 Orders Only [facility] Oncology [facility] Hematology [facility] [address] [place] [address] Dakota Watkins MD [facility] [address] [place] [address] Social History Tobacco Use Types Packs/Day [...] (Late Contact Info) Description 04/14/2024 10:15 AM FORGER HELPER Office Visit [facility] Oncology and Hematology Chris [address] [place] [address] Dakota Watkins MD [address] [place] [address] documented as of this encounter Procedures Procedure Name Priority Date/Time Associated Diagnosis Comments NM BONE SCAN WHOLE BODY Routine 12/05/2023 10:24 AM CDT documented in this encounter Results * NM BONE SCAN WHOLE BODY (12/05/2023 10:24 AM CDT) Anatomical Region Laterality Modality Other Dakota Watkins MD NM ORDERABLES documented in this encounter Visit Diagnoses Not on filedocumented in this encounter
--- OUTSIDE RECORDS SUMMARY | 2024-04-08 10:14 | XMS_ITS | Encounter Summary ---
Author Organization [facility] Address [address] [place] [address] Care Team Providers Care Sand Blaster Name Role Phone Unavailable Primary Care Provider Unavailabl e Encounter Details Date Type Department Care Team (Late Contact Info) Description 10/09/2023 Orders Only [facility] H[facility] [address] [place] [address] Dakota Watkins MD [facility] [employer] [address] [place] [address] Social History Tobacco Use Types Packs/Day [...] (Late Contact Info) Description 04/14/2024 10:15 AM FINANCIAL SECRETARY Office Visit [facility] Oncology and Hematology Chris [address] [place] [address] Dakota Watkins MD [facility] [employer] [address] [place] [address] documented as of this encounter Procedures Procedure Name Priority Date/Time Associated Diagnosis Comments PET BONE IMG W CT SKL BSE MID THG Routine 10/08/2023 9:04 AM CDT documented in this encounter Results * PET BONE IMG W CT SKB (10/08/2023 9:04 AM CDT) Anatomical Region Laterality Modality Other Dakota Watkins MD PE ORDERABLES documented in this encounter Visit Diagnoses Not on filedocumented in this encounter
--- OUTSIDE RECORDS SUMMARY | 2024-04-08 10:14 | XMS_ITS | Encounter Summary ---
Author Organization [facility] Address [address] [place] [address] Care Team Providers Care Refrigeration Tech Name Role Phone Unavailable Primary Care Provider Unavailabl e Reason for Referral * Nuclear Medicine (Urgent) - Closed Specialty Diagnoses / Procedures Referred By Contac t Referred To Contact Diagnoses Malignant neoplasm of upper lobe of left lung Procedures NM BONE SCAN WHOLE BODY Dakota Watkins MD [address] [place] [address] [place] [address] Referral ID Status Reason Start Date Expiration Date V isits Requested Visits Authorized [id number] Closed STL CTS 12/03/2023 01/02/2025 1 1 * Radiology Services (Urgent) - Closed Specialty Diagnoses / Procedures Referred By Contac t Referred To Contact Diagnoses Swelling of arm Procedures US DOPPLER VENOUS ARM RIGHT Dakota Watkins MD [address] [place] [address] [place] [address] Referral ID Status Reason Start Date Expiration Date V isits Requested Visits Authorized [id number] Closed STL CTS 12/03/2023 01/02/2025 1 1 * Radiation Therapy (Routine) - Closed Specialty Diagnoses / Procedures Referred By Contac t Referred To Contact Diagnoses Malignant neoplasm of upper lobe of left lung Procedures OR OFFICE/OUTPATIENT ESTABLISHED MOD MDM 30 MIN OR OFFICE/OUTPATIENT NEW MODERATE MDM 45 MINUTES Toño Fields MD [address] [facility] [address] [place] [address] Referral ID Status Reason Start Date Expiration Date V isits Requested Visits Authorized [id number] Closed STL CTS 12/03/2023 12/02/2024 1 1 Reason for Visit * Reason Comments Cancer Follow Up Encounter Details Date Type Department Care Team (Late st Contact Info) Description 12/03/2023 11:30 AM CDT Office Visit [facility] Oncology and Hematology - [place] [address] [facility] [address] [place] [address] Dakota Watkins MD [address] [facility] [employer] [address] [place] [address] Malignant neoplasm of upper lobe of left lung (Primary Dx); Swelling of arm Social History Tobacco Use Types Packs/Day Years [...] (212 lb) 12/03/2023 11:17 AM CDT Height - - Body Mass Index 41.4 09/25/2023 1:33 PM CDT documented in this encounter Progress Notes * Dakota Watkins MD - 12/03/2023 12:30 PM CDT HEMATOLOGY / ONCOLOGY PROGRESS NOTE Patient Identification: Name: Sherri Ramirez Age: 63 y.o. Sex: female : 1960 DIAGNOSIS Non-small cell lung cancer adenocarcinoma histology status post CT-guided biopsy of the left upper lobe lung mass done on October 21, 2023. CURRENT TREATMENT Expectant TREATMENT HISTORY SUBJECTIVE Patient came to the office for follow-up visit after appointment with thoracic surgery at [facility]. She denies any worsening of shortness of breath. Denies any bone pain. Weight and appetite stable. No other new complaints. Review of system Constitutional: [...] 24 hours: As per nursing note Exam: HEENT: Atraumatic, external ears normal, nose normal, [...] normal sensory function, no focal deficits noted Exam as above [facility] @IMAGEIMP@ Assessment: Plan: There are no problems to display for this patient. Non-small cell lung cancer adenocarcinoma histology status post CT-guided biopsy of the left upper lobe lung mass done on October 21, 2023. PET scan done on October 07 showed 1.7 cm left upper lobe lung nodule with SUV of 8.5. There is [id number] mm nodule with SUV of 5.1 in the left upper lobe . Thoracic surgery consultation from [facility] noted. There are 2 lesions in the left upper lobe both concerning for lung cancer with FDG avidity of the spine but this was not read as concerning on the CT scan. Patient has a history of severe degenerative disc disease involving the spine. Patient was found not to be a surgical candidate due to poor lung function testing. I will refer this patient to Dr. Fields for radiation oncology consultation to see if she can benefit from radiation therapy treatment versus systemic therapy. I will order bone scan to look into the spine finding further. COPD. She will continue to follow-up with the pulmonary service. Hypertension. Stable. Follow-up phone visit in 1 to 2 weeks to discuss treatment options after consultation with radiation oncology. 12/03/2023 Dakota Watkins MD documented in this encounter Plan of Treatment Upcoming Encounters Date Type Department Care Team (Late st Contact Info) Description 04/14/2024 10:15 AM PHP MAGENTO DEVELOPER Office Visit [facility] Oncology and Hematology - [place] [address] [facility] [address] [place] [address] Dakota Watkins MD [address] [facility] [address] [place] [address] Scheduled Orders Name Type Priority Associated Diagnoses Orde r Schedule US DOPPLER VENOUS ARM RIGHT Imaging Stat Swelling of arm Expected: 12/03/2023, Expires: 12/02/2024 NM BONE SCAN WHOLE BODY Imaging Stat Malignant neoplasm of upper lobe of left lung 1 Occurrences starting 12/03/2023 until 12/02/2024 Scheduled Referrals Name Type Priority Associated Diagnoses Orde r Schedule AMB REFERRAL TO RADIATION ONCOLOGY Outpatient Referral Routine Malignant neoplasm of upper lobe of left lung Ordered: 12/03/2023 documented as of this encounter Visit Diagnoses Diagnosis Malignant neoplasm of upper lobe of left lung- Primary Swelling of arm Swelling of limb documented in this encounter
--- OUTSIDE RECORDS SUMMARY | 2024-04-08 10:14 | XMS_ITS | Encounter Summary ---
Author Organization [facility] Address [address] [place] [address] Care Team Providers Care Educational Technologist Name Role Phone Unavailable Primary Care Provider Unavailabl e Encounter Details Date Type Department Care Team (Late Contact Info) Description 11/13/2023 Abstract [facility] Cardiovas and Thor Surg at [facility] [address] [facility] [address] [place] [address] Chris Mujica MD [address] [facility] [address] [place] [address] Social History Tobacco Use Types Packs/Day Years [...] st Contact Info) Description 04/14/2024 10:15 AM WIRE TESTER Office Visit [facility] Oncology and Hematology - Chris [address] [facility] [address] [place] [address] Dakota Watkins MD [address] [facility] [address] [place] [address] documented as of this encounter Visit Diagnoses Not on filedocumented in this encounter
--- OUTSIDE RECORDS SUMMARY | 2024-04-08 10:14 | XMS_ITS | Encounter Summary ---
Author Organization [facility] [employer] [facility] Address [address] [place] [address] Care Team Providers Care Flap Curer Name Role Phone Unavailable Primary Care Provider Unavailabl e Reason for Referral * Eval and Treat (Routine) - Closed Specialty Diagnoses / Procedures Referred By Ronnie hummel Referred To Contact Thoracic Surgery / Cardiothoracic Surgery Diagnoses Malignant neoplasm of upper lobe of left lung Procedures NM OFFICE/OUTPATIENT ESTABLISHED MOD MDM 30 MIN NM OFFICE/OUTPATIENT NEW MODERATE MDM 45 MINUTES Dakota Watkins MD [facility] [employer] [place] [phone] Chris Mujica MD [address] [facility] [address] [place] [address] Referral ID Status Reason Start Date Expiration Date V isits Requested Visits Authorized [id number] Closed CRS to Schedule 10/29/2023 10/28/2024 1 1 Reason for Visit * Reason Comments Cancer Follow Up Encounter Details Date Type Department Care Team (Late st Contact Info) Description 10/29/2023 2:15 PM CDT Office Visit [facility] Oncology and Hematology - Chris [address] [place] [address] [address] [place] [address] Dakota Watkins MD [address] [place] [address] Malignant neoplasm of upper lobe [...] Sign Reading Time Taken Comments Blood Pressure 105/84 10/29/2023 2:20 PM CDT Pulse 72 10/29/2023 2:20 PM CDT Temperature 36.7 ??C (98 ??F) 10/29/2023 2:20 PM CDT Respiratory Rate 18 10/29/2023 2:20 PM CDT Oxygen Saturation 96% 10/29/2023 2:20 PM CDT Inhaled Oxygen Concentration - - Weight 95.7 kg (211 lb) 10/29/2023 2:20 PM CDT Height - - Body Mass Index 41.21 09/25/2023 1:33 PM CDT documented in this encounter Progress Notes * Dakota Watkins MD - 10/29/2023 5:33 PM CDT HEMATOLOGY / ONCOLOGY PROGRESS NOTE Patient Identification: Name: Sherri Ramirez Age: 63 y.o. Sex: female : 1960 DIAGNOSIS Non-small cell lung cancer adenocarcinoma histology status post CT-guided biopsy of the left upper lobe lung mass done on October 21, 2023. CURRENT TREATMENT Expectant TREATMENT HISTORY SUBJECTIVE He came to the office for follow-up visit after the lung biopsy was performed. She tolerated the procedure well. Denies any chest pain and shortness of breath. She is quite nervous about the diagnosis. No other new complaints. Review of system [...] nodule with SUV of 8.5. There is mm nodule with SUV of 5.1 in the left upper lobe . I have discussed the treatment options. We will refer her to Dr Eastman for surgical consultation. She is due to have pulmonary function testing later this week. I plan to see her back after her appointment with Dr Eastman. COPD. She will follow-up with Dr. Hassan. She is feeling better after starting new inhaler. Hypertension. Stable. TOBACCO COUNSELING She was counseled to discontinue tobacco/nicotine use. 10/29/2023 Dakota Watkins MD documented in this encounter Plan of Treatment Upcoming Encounters Date Type Department Care Team (Late st Contact Info) Description 04/14/2024 10:15 AM QUARTER SECTION IRONER Office Visit [facility] Oncology and Hematology - Chris [address] [facility] [address] [place] [address] Dakota Watkins MD [address] [facility] [address] [place] [address] Scheduled Referrals Name Type Priority Associated Diagnoses Order Schedule AMB REFERRAL TO CARDIOTHORACIC SURGEON Outpatient Referral Routine Malignant neoplasm of upper lobe of left lung Ordered: 10/29/2023 documented as of this encounter Visit Diagnoses Diagnosis Malignant neoplasm of upper lobe of left lung- Primary documented in this encounter
--- OUTSIDE RECORDS SUMMARY | 2024-04-08 10:14 | XMS_ITS | Encounter Summary ---
Author Organization [facility] [employer] [facility] Address [address] [place] [address] Care Team Providers Care Learning Solutions Specialist Name Role Phone Unavailable Primary Care Provider Unavailabl e Reason for Visit * Reason Onset Date Comments Referral 11/14/2023 Encounter Details Date Type Department Care Team (Late st Contact Info) Description 11/14/2023 Telephone [facility] Oncology and Hematology - Chris [address] [facility] [address] [place] [address] Dakota Watkins MD [address] [facility] [address] [place] [address] Referral Social History Tobacco Use Types Packs/Day [...] * Telephone Encounter - Kesha Coyle - 11/14/2023 7:50 AM CDT Referral sent to Dr. Erika Underwood at [facility]. * Telephone Encounter - Kesha Coyle - 11/14/2023 7:50 AM CDT ----- Message from Dr. Dakota Watkins sent at 11/13/2023 3:37 PM CDT ----- Regarding: RE: Insurance not accepted Refer patient to [facility] thoracic surgery. ----- Message ----- From: Kesha Coyle Sent: 11/12/2023 2:33 PM CDT To: Dakota Watkins MD Subject: Insurance not accepted Denise from Dr. Krishna's office called and stated that they do not accept patients insurance. Where would you like me to send the referral too? documented in this encounter Plan of Treatment Upcoming Encounters Date Type Department Care Team (Late st Contact Info) Description 04/14/2024 10:15 AM AUDIOVISUAL LEAD TECHNICIAN Office Visit [facility] Oncology and Hematology - [place] [address] [place] [address] [facility] [address] [place] [address] Dakota Watkins MD [address] [facility] [address] [place] [address] documented as of this encounter Visit Diagnoses Not on filedocumented in this encounter
--- OUTSIDE RECORDS SUMMARY | 2024-04-08 10:14 | XMS_ITS | Encounter Summary ---
Author Organization [facility] Address [address] [place] [address] Care Team Providers Care Accounts Payable Supervisor Name Role Phone Unavailable Primary Care Provider Unavailabl e Encounter Details Date Type Department Care Team (Late st Contact Info) Description 12/31/2023 External Device Data STL ABSTRACTION Provider, Abstract [...] st Contact Info) Description 04/14/2024 10:15 AM RESIDENTIAL REAL ESTATE SALES MANAGER Office Visit [facility] Oncology and Hematology - [place] [address] [place] [address] Dr Massey [address] [place] [address] Dakota Watkins MD [address] [facility] [address] [place] [address] documented as of this encounter Visit Diagnoses Not on filedocumented in this encounter
--- OUTSIDE RECORDS SUMMARY | 2024-04-08 10:14 | XMS_ITS | Encounter Summary ---
Author Organization [facility] Address [address] [place] [address] Care Team Providers Care Transport Corps Officer Name Role Phone Unavailable Primary Care Provider Unavailabl e Encounter Details Date Type Department Care Team (Late st Contact Info) Description 12/03/2023 External Device Data STL ABSTRACTION Provider, Abstract [...] st Contact Info) Description 04/14/2024 10:15 AM SHUTTLE REPAIRER Office Visit [facility] Oncology and Hematology - [place] [address] [place] [address] Dr Massey [address] [place] [address] Dakota Watkins MD [address] [facility] [address] [place] [address] documented as of this encounter Visit Diagnoses Not on filedocumented in this encounter
--- OUTSIDE RECORDS SUMMARY | 2024-04-08 10:14 | XMS_ITS | Encounter Summary ---
Author Organization [facility] [employer] [facility] Address [address] [place] [address] Care Team Providers Care Model Maker Fiberglass Name Role Phone Unavailable Primary Care Provider Unavailabl e Encounter Details Date Type Department Care Team (Late Contact Info) Description 12/24/2023 Abstract [facility] Oncology and Hematology Chris [address] [place] [address] Dakota Watkins MD [address] [employer] [address] [place] [address] Social History Tobacco Use Types Packs/Day [...] (Late Contact Info) Description 04/14/2024 10:15 AM CHILDHOOD TEACHER Office Visit [facility] Oncology and Hematology Chris [address] [place] [address] Dakota Watkins MD [address] [employer] [address] [place] [address] documented as of this encounter Visit Diagnoses Not on filedocumented in this encounter
--- OUTSIDE RECORDS SUMMARY | 2024-04-08 10:14 | XMS_ITS | Encounter Summary ---
Author Organization [facility] Address [address] [place] [address] Care Team Providers Care Fan Balancer Name Role Phone Unavailable Primary Care Provider Unavailabl e Encounter Details Date Type Department Care Team (Late st Contact Info) Description 11/19/2023 External Device Data STL ABSTRACTION Provider, Abstract [...] st Contact Info) Description 04/14/2024 10:15 AM IRON HANDLER Office Visit [facility] Oncology and Hematology - Chris [address] [place] [address] Dr [address]sey [address] [place] [address] Dakota Watkins MD [address] [facility] [address] [place] [address] documented as of this encounter Visit Diagnoses Not on filedocumented in this encounter
--- OUTSIDE RECORDS SUMMARY | 2024-04-08 10:14 | XMS_ITS | Encounter Summary ---
Author Organization [facility] Address [address] [place] [address] Care Team Providers Care Fitter Machinist Name Role Phone Unavailable Primary Care Provider Unavailabl e Encounter Details Date Type Department Care Team (Late st Contact Info) Description 10/15/2023 External Device Data STL ABSTRACTION Provider, Abstract [...] st Contact Info) Description 04/14/2024 10:15 AM MATTRESS RENOVATOR Office Visit [facility] Oncology and Hematology - [place] [address] [place] [address] Dr Mas[address] [place] [address] Dakota Watkins MD [address] [facility] [address] [place] [address] documented as of this encounter Visit Diagnoses Not on filedocumented in this encounter
--- OUTSIDE RECORDS SUMMARY | 2024-04-08 10:14 | XMS_ITS | Encounter Summary ---
Author Organization [facility] Address [address] [place] [address] Care Team Providers Care Esol Instructor Name Role Phone Unavailable Primary Care Provider Unavailabl e Encounter Details Date Type Department Care Team (Late Contact Info) Description 12/06/2023 Chart Note [facility] Radiation Therapy [address] [place] [address] Toño Fields MD [address] [facility] [address] [place] [address] Social History Tobacco Use Types Packs/Day Years [...] (Late Contact Info) Description 04/14/2024 10:15 AM VIDEO GAME PROGRAMMER Office Visit [facility] Oncology and Hematology - Chris [address] [facility] [address] [place] [address] Dakota Watkins MD [address] [facility] [address] [place] [address] documented as of this encounter Visit Diagnoses Not on filedocumented in this encounter
--- OUTSIDE RECORDS SUMMARY | 2024-04-08 10:14 | XMS_ITS | Encounter Summary ---
Author Organization [facility] Address [address] [place] [address] Care Team Providers Care Food Supervisor Name Role Phone Unavailable Primary Care [...] st Contact Info) Description 04/14/2024 10:15 AM COMPLIANCE ADVISOR Office Visit [facility] Oncology and Hematology - [place] [address] [place] [address] Dr Massey [address] [place] [address] Dakota Watkins MD [address] [facility] [address] [place] [address] documented as of this encounter Visit Diagnoses Not on filedocumented in this encounter
--- OUTSIDE RECORDS SUMMARY | 2024-04-08 10:14 | XMS_ITS | Encounter Summary ---
Author Organization [facility] Address [address] [place] [address] Care Team Providers Care Residential Service Technician Name Role Phone Unavailable Primary Care Provider [...] st Contact Info) Description 04/14/2024 10:15 AM RETAIL BANKING MANAGER Office Visit [facility] Oncology and Hematology - Chris [address] [place] [address] Dr [address] [place] [address] Dakota Watkins MD [address] [facility] [address] [place] [address] documented as of this encounter Visit Diagnoses Not on filedocumented in this encounter
--- OUTSIDE RECORDS SUMMARY | 2024-04-08 10:14 | XMS_ITS | Encounter Summary ---
Author Organization [facility] Address [address] [place] [address] Care Team Providers Care Watermaster Name Role Phone Unavailable Primary Care Provider [...] st Contact Info) Description 04/14/2024 10:15 AM ADVISOR TO COMMAND IN COMBAT Office Visit [facility] Oncology and Hematology - Chris [address] [place] [address] Dr [address]sey [address] [place] [address] Dakota Watkins MD [address] [facility] [address] [place] [address] documented as of this encounter Visit Diagnoses Not on filedocumented in this encounter
[2024-04-09 01:58] LABS: Adenovirus DNA Not Detected (Not Detected); Chlamydophila pneumoniae Not Detected (Not Detected); Coronavirus 229E Not Detected (Not Detected); Coronavirus HKU1 Not Detected (Not Detected); Coronavirus NL63 Not Detected (Not Detected); Coronavirus OC43 Not Detected (Not Detected); Human Metapneumovirus Not Detected (Not Detected); Human Parainfluenza Virus 1 Not Detected (Not Detected); Human Parainfluenza Virus 2 Not Detected (Not Detected); Human Parainfluenza Virus 3 Not Detected (Not Detected); Human Parainfluenza Virus 4 Detected (Not Detected); Human RSV B Not Detected (Not Detected); Influenza A Not Detected (Not Detected); Influenza B Not Detected (Not Detected); Mycoplasma pneumoniae Not Detected (Not Detected); Rhinovirus/Enterovirus Not Detected (Not Detected)
== END 2024-04-06 18:00 | disposition home or self-care (01) | DRG 190 ==
LOC: ANHED 12:43 → ANH3MEDSUR 18:00 → ANH3MED 18:48 → ANHICU 04-02 12:16 → ANHIMU 04-03 18:17 → ANH2MED 04-06 16:05 → ANHIMU 04-07 13:36
PROVIDERS: Internal Medicine; Internal Medicine Pulmonary Disease; Nurse Practitioner; Admitting Provider Internal Medicine; Emergency Provider Emergency Medicine; PCP Physician Assistant; Visit Provider General Practice
DX: J44.0 Chronic obstructive pulmonary disease with (acute) lower respiratory infection (principal); J96.22 Acute and chronic respiratory failure with hypercapnia; C34.12 Malignant neoplasm of upper lobe, left bronchus or lung; E87.29 Other acidosis; Z68.41 Body mass index [BMI] 40.0-44.9, adult; F33.9 Major depressive disorder, recurrent, unspecified; J96.12 Chronic respiratory failure with hypercapnia; J44.1 Chronic obstructive pulmonary disease with (acute) exacerbation; J20.4 Acute bronchitis due to parainfluenza virus; I10 Essential (primary) hypertension; E66.9 Obesity, unspecified; G47.33 Obstructive sleep apnea (adult) (pediatric); R91.1 Solitary pulmonary nodule; F17.210 Nicotine dependence, cigarettes, uncomplicated; F40.240 Claustrophobia
CPT/HCPCS: 36415; 36600; 71045; 71275; 80053; 82805; 83605; 83735; 85018; 85025; 87633; 87637; 93005; 94618; 94640; 96372; 96375; 96376; 99285; A9270; C8929; G0378; J1650; J2060; J2919; J3475; J7512; Q9957; Q9967

== ENCOUNTER 2024-05-26 08:00 | Outpatient (CLI) | payer MEDICARE, MEDICAID, SELFPAY ==
--- OUTSIDE RECORDS SUMMARY | 2024-05-26 08:12 | XMS_ITS | Patient Health Summary ---
Author Organization [facility] Address [address] [place] [place] [address] Care Team Providers Care Research Test Engine Evaluator Name Role Phone Unknown, Provider Primary Care Provider Unavaila ble Note from [facility],non-owned Affiliates and Associated Physician Practices is amultiple site organization consisting of ambulatory clinics and hospital sitesin [place], [place], [place] and [place]. This disclosure is being madepursuant to the Care Everywhere program and may not contain all information available regarding this patient. Last updated 17.[facility] Allergies * Sertraline(Rash) -Medium Criticality Medications * [...] dictated by Ken Pinzon MD (vice president financial). I, Damien Finney MD have personally reviewed and interpreted this examination/study. > Interpreting Provider: Damien Finney MD on 06/17/2023 3:02 PM Narrative 06/17/2023 3:02 PM CDT PROCEDURE: XR LUMBAR SPINE 2 OR 3VW, DATE/TIME OF EXAM: 06/17/2023 11:55 AM, LOCATION [facility] INDICATION: M54.89: Other back pain, unspecified chronicity [...] 3VW, DATE/TIME OF EXAM: 1:55 AM, LOCATION [facility] INDICATION: M54.89: Other back pain, unspecified chronicity ADDITIONAL CLINICAL INFORMATION: Ordering Provider Reason For Exam: back pain COMPARISON: None. FINDINGS: There is grade 1-2 anterolisthesis at the L4-5 level measuring approximately 9 to 10 mm. Otherwise the vertebral body alignment isnormal. There is no fracture or compression deformity. There is multilevel intervertebral disc space narrowing, most prominently at the L5-J2dodns. Multilevel facet arthropathy throughout the lumbar spine, [...] dictated by Ken Pinzon MD (vice president financial). Damien Matias MD have personally reviewed and [...] region. Report dictated by Ken Pinzon MD (vice president financial). Damien Matias MD have personally reviewed and interpreted this examination/study. > Interpreting Provider: Damien Finney MD on 06/17/2023 2:58 PM Narrative 06/17/2023 2:58 PM CDT PROCEDURE: XR THORACIC SPINE 2VW, DATE/TIME OF EXAM: 06/17/2023 11:49 AM, LOCATION [facility] INDICATION: M54.89: Other back pain, unspecified chronicity [...] 2VW, DATE/TIME OF EXAM: 06/17/2023 11:49AM, LOCATION [facility] INDICATION: M54.89: Other back pain, unspecified chronicity [...] region. Report dictated by Ken Pinzon MD (vice president financial). Damien Matias MD have personally reviewed and interpreted this examination/study. > Interpreting Provider: Damien Finney MD on 06/17/2023 2:58 PM Ese Stockton PA-C DIAGNOSTIC IMAGING ORDERABLES * XR CERVICAL [...] left. Report dictated by Ken Pinzon MD (vice president financial). Damien Matias MD have personally reviewed and interpreted this examination/study. > Interpreting Provider: Damien Finney MD on 06/17/2023 2:56 PM Narrative 06/17/2023 2:56 PM CDT PROCEDURE: XR CERVICAL SPINE 2 OR 3VW, DATE/TIME OF EXAM: 06/17/2023 11:48 AM, LOCATION [facility] INDICATION: M54.89: Other back pain, unspecified chronicity [...] 3VW, DATE/TIME OF EXAM: 1:48 AM, LOCATION [facility] INDICATION: M54.89: Other back pain, unspecified chronicity [...] subtle anterior subluxation of C4 relative to [id number] approximately 1.2 mm. 3.Moderate degenerative disc disease at C4-C5 and C5-C6. 4.The C6-C7 through the C7-T1 levels are inadequately visualized for assessment on the lateral projection. 5.Multilevel facet joint degenerative changes appearing greater on the right than the left. Report dictated by Ken Pinzon MD (vice president financial). I, Damien Finney MD have personally reviewed and interpreted this examination/study. > Interpreting Provider: Damien Finney MD on 06/17/2023 2:56 PM Ese Stockton PA-C DIAGNOSTIC IMAGING ORDERABLES Care Teams Research Test Engine Evaluator Relationship Specialty Start Date End Date Unknown, Provider PCP - General 06/17/23
--- OUTSIDE RECORDS SUMMARY | 2024-05-26 08:12 | XMS_ITS | Clinical Summary ---
Author Organization [facility] Address [address] [facility] [place] [address] Care Team Providers Care Agronomy Technician Name Role Phone Unknown, Provider Primary Care Provider Unavaila ble Source Comments [facility]-owned [facility] and Associated [facility]ician Practices is amultiple site organization consisting of ambulatory clinics and hospital sitesin [place], [place], [place] and [place]. This disclosure is being madepursuant to the Care Everywhere program and may not contain all information available regarding this patient. Last updated 17.[facility] [employer] Allergies Active Allergy Reactions Criticality Noted Date [...] TESTING 1961 MAMMOGRAM 1961 PAP SMEAR 1961 HIV SCREENING 1976 HEPATITIS C SCREENING 07/05/1979 DTAP/TDAP/TD VACCINES (1 - Tdap) 1980 PNEUMOCOCCAL VACCINE 50+ (1 of 2 - PCV) 1980 PNEUMOCOCCAL VACCINE (1 of 2 - PCV) 1980 ZOSTER VACCINE (1 of 2) 07/10/2011 [...] patient's age to complete this topic MENINGOCOCCAL (Group B) VACCINE Aged Out No longer eligible based on patient's age to complete this topic MENINGOCOCCAL VACCINE Aged Out No amanda shae eligible based on patient's age to complete this topic Care Teams Agronomy Technician Relationship Specialty Start Date End Date Unknown, Provider PCP - General 06/17/23
--- OUTSIDE RECORDS SUMMARY | 2024-05-26 08:12 | XMS_ITS | Clinical Summary ---
Author Organization [facility] Address [address] [place] [address] Care Team Providers Care Night Patrol Inspector Name Role Phone Unavailable Primary Care Provider Unavailabl e Allergies Active Allergy Reactions Criticality Noted Date Comments Sertraline Rash Medium 01/18/2022 Medications albuterol sulfate 90 mcg/actuation aero powdr breath act w/sensor Take by inhalation. Active predniSONE (DELTASONE) 50 mg tablet Take 50 mg by mouth daily. Active budesonide-form oteroL (SYMBICORT) 160-4.5 mcg/actuation HFA Aerosol Inhaler Take 2 Puffs by inhalation 2 times daily. Active multivit-min/ca lc/biotin/D3/FA (BIOTIN PLUS-CALCIUM AND VIT D3 ORAL) Take by mouth. Activ e nortriptyline (PAMELOR) 50 mg capsule Take 50 mg by mouth daily at bedtime. Active metoprolol tartrate (LOPRESSOR) 50 mg tablet Take 50 mg by mouth 2 times daily. Active losartan (COZAAR) 100 mg tablet Take 100 mg by mouth daily. Active traMADoL (ULTRAM) 50 mg tabletIndicatio ns:Lung nodule Take 1 tablet 12 hours before the scan and then 3 hours before the scan. 5 Tablet 4 Active Ozempic 0.25 mg or 0.5 mg (2 mg/3 mL) Pen Injector Inject 1 mg by subcutaneous injection every 7 days. Active tiotropium (SPIRIVA RESPIMAT) 2.5 mcg/actuation Mist Inhale 2 puffs every day by inhalation route. 4 Active Active Problems No known active problems Encounters Date Type Department Care Team Description 05/20/2024 External Device Data STL ABSTRACTION Provider, Abstract 04/22/2024 External Device Data STL ABSTRACTION Provider, Abstract 04/22/2024 External Device Data STL ABSTRACTION Provider, Abstract 04/21/2024 Chart Note [facility] Emergency Department [address] [address] Toño Fields MD 04/14/2024 10:15 AM POLICE PATROL OFFICER Office Visit [facility] Oncology and Hematology - Chris [address] [place] [address] Dakota Watkins MD Malignant neoplasm of upper lobe of left lung (CMS/HCC) (Primary Dx) 04/14/2024 External Device Data STL ABSTRACTION Provider, Abstract 04/08/2024 Orders Only [facility] Oncology and Hematology - Chris [address] [place] [address] Dakota Watkins MD 04/02/2024 Orders Only [facility] Oncology and Hematology - Chris [address] [place] [address] Dakota Watkins MD from Last 3 Months Family History Medical History Relation Name Comments No Known Problems Brother Heart Disease Father Diabetes Mother Heart Disease Mother Breast Cancer Paternal Aunt No Known Problems Sister Relation Name Status Comments Brother Alive Child Alive Father Mother Paternal Aunt Sister Alive Social History Tobacco Use Types Packs/Day Years Used Date Smoking Tobacco: Some Days Cigarettes 1 50.7 Started: 08/31/2023 Alcohol Use Standard Drinks/Week Comments Yes 0 (1 standard drink = 0.6 oz pur e alcohol) socially Comments Unknown Sex and Gender Information Value Date Recorded Sex Assigned at Not on file Legal Sex Female 2:36 PM CDT Gender Identity Not on file Sexual Orientation Not on file Last Filed Vital Signs Vital Sign Reading Time Taken Comments Blood Pressure 80/49 04/14/2024 10:10 AM POLICE PATROL OFFICER Pulse 85 04/14/2024 10:10 AM POLICE PATROL OFFICER Temperature 36.5 C (97.7 F) 04/14/2024 10:10 AM POLICE PATROL OFFICER Respiratory Rate 20 04/14/2024 10:10 AM POLICE PATROL OFFICER Oxygen Saturation 91% 04/14/2024 10:10 AM POLICE PATROL OFFICER Inhaled Oxygen Concentration - - Weight 93.4 kg (206 lb) 04/14/2024 10:10 AM POLICE PATROL OFFICER Height 152.4 cm (5') 09/25/2023 1:33 PM CDT Body Mass Index 40.23 09/25/2023 1:33 PM CDT Plan of Treatment Upcoming Encounters Date Type Department Care Team (Late st Contact Info) Description 07/07/2024 10:00 AM CDT Office Visit [facility] Oncology and Hematology - Industry [address] [facility] [address] [place] [address] Dakota Watkins MD [address] [facility] [address] [place] [address] Health Maintenance Due Date Last Done Comments Pre-Diabetes and Diabetes Screening 1961 CERVICAL CANCER SCREENING 07/10/1991 BREAST CANCER SCREENING 2001 COLORECTAL SCREENING 2006 Colorectal Cancer Screening 2006 FIT-DNA Q 3 years 2006 FIT/FOBT Q 1 year 2006 Flex Sig/CT Colonography Q 5 years 2006 ZOSTER VACCINE (1 of 2) 07/10/2011 RSV VACCINE (60+ or ) (1 - Risk 60-74 years 1-dose series) 2021 DTAP/TDAP/TD VACCINES (2 - Td or Tdap) 08/31/2027 INFLUENZA VACCINE Completed 01/13/2024, 04/28/2021 Procedures Procedure Name Priority Date/Time Associated Diagnosis Comments CREATININE Routine 03/30/2024 2:02 PM POLICE PATROL OFFICER CT CHEST W CONTRAST Routine 03/30/2024 10:52 AM POLICE PATROL OFFICER from Last 3 Months Results * CREATININE (03/30/2024 2:02 PM POLICE PATROL OFFICER) Blood us Dakota Watkins MD CHEMISTRY ORDERABLES Final Resu lt * CT CHEST W CONTRAST (03/30/2024 10:52 AM POLICE PATROL OFFICER) Anatomical Region Laterality Modality Chest Other us Dakota Watkins MD CT ORDERABLES Final Result from Last 3 Months Insurance MEDICAID [id number] MED[place] PART A AND B [employer]
--- OUTSIDE RECORDS SUMMARY | 2024-05-26 08:12 | XMS_ITS | Data Portability ---
Author Organization [facility] Kassandra Mathews Address [address] [place] [address] Care Team Providers Care Medical Review Specialist Name Role Phone MARK CASEY Primary Care Provider Assessment Encounter Date Assessment Date Assessment LastModified by Organization Details LastModified Time 11/18/2023 11/18/2023 declines colon test and pap (11/18/2023) Not available 11/18/2023 16:03:40 01/13/2024 01/13/2024 declines cervical, colon and breast screenings Not available 01/13/2024 14:31:06 Plan of Treatment Reminders Order Date Submit Date Provider Last Modified By Organization Details Last Modified Time Details Appointments None recorded. Lab pap, IG + reflex HPV 2024 025 [facility], [address] [facility], [address], [place], [address], 5 15:18:59 Referral vascular surgeon referral 2024 025 [email or web address] Ryan Oreilly MD, [address] [facility] , [address] [address], [place], [address], 5 10:21:00 orthopedic surgeon referral - Right elbow pain 12/06/2023. xray shows soft tissue swelling posterior to the olecranon and proximal ulna (could be olecranon bursitis). small chronic nonuinted fracture with corticated margins at tip of coronoid process. 2023 024 LAYNE [place], [address] [facility], [address], [place], [address], 4 11:05:21 Procedures polysomnogr aphy, split night (PROC) [address], [facility] [address], [place], [address], 4 08:02:56 Surgeries None recorded. Imaging MAMMO, screening, bilateral [address] (Imaging), [address] [facility] [address], [place], [address], 5 08:14:40 Medication Orders Ozempic 2 mg/dose (8 mg/3 mL) subcutaneou s pen injector 2023 024 [facility]89, [address] [facility], [place], [place], [id number], 4 14:32:00 albuterol sulfate HFA 90 mcg/actuati on aerosol inhaler 2023 024 MILLERS TAVERN [facility] #72561, [address] [facility], [place], [place], [id number], 4 14:33:34 Ozempic 1 mg/dose (4 mg/3 mL) subcutaneou s pen injector 2023 024 [facility]2380, [address] [facility], [place], [place], [id number], 4 16:08:18 Spiriva Respimat 2.5 mcg/actuati on solution for inhalation 2023 024 [facility], [address] [facility], [place], [place], [id number], 4 14:31:00 Patient TargetsNo targets recorded. Patient Instructions Encounter Date Encounter Id Patient Instructions Last Modified By Organization Details Last Modified Time 04/23/2024 [id number] A healthy lifestyle: care instructions Not available 04/23/2024 14:24:42 (JEFRY) ankle brachial index* ATHENAFAX Not available 04/23/2024 14:47:33 Reason for Referral Orthopedic Surgeon Referral for Closed fracture of right elbow Right elbow pain 12/06/2023. xray shows soft tissue swelling posterior to the olecranon and proximal ulna (could be olecranon bursitis). small chronic nonuinted fracture with corticated margins at tip of coronoid process. Referring Physician: Mark Casey Professor Of Radiology, Encounter Date: 12/16/2023 Vascular Surgeon Referral fo r Abnormal foot pulse Referring Physician: Mark Casey Professor Of Radiology, Encounter Date: 04/23/2024 Results Created Date Observation Date Name Description Value Unit Range Abnormal Flag Note LastModifiedBy Organization Detail LastModifiedTime 04/23/1904/23/2024 IGP,A PTIMA HPV,A GE GDLN age gdln acog testing 30-65 Not Available [facility] ([facility]) [address] [facility], [place], [address], 04/27/2024 15:18:59 04/23/1904/25/2024 IGP, APTIM A HPV, RFX 16/18 ,45 HPV aptima Negati ve negati ve This nucle ic acid ampli ficat ion test detec ts fourt een high- risk HPV types (16,1 8,31, 33,35 ,39,4 5,51, 52,56 ,58,5 9,66, 68) witho ut diffe renti ation . Not Available [facility] ([facility]) [address] [facility], [place], [address], 04/27/2024 15:19:00 04/23/19 25 04/27/2024 IGP, APTIM A HPV, RFX 16/18 ,45 diagnosis: Commen t NEGAT ANANDA FOR INTRA EPITH ELIAL LESIO N OR MALDANIEL PUCKETT . Not Available [facility] ([facility]) [address] [place], [address], 04/27/2024 15:19:00 04/23/19 25 04/27/2024 IGP, APTIM A HPV, RFX 16/18 ,45 specimen adequacy: Watson hummel Satis facto ry for evalu ation . Endoc ervic al and/o r squam ous metap lasti c cells (endo cervi marie compo nent) are prese nt. Not Available [facility] ([facility]) [address] [place], [address], 04/27/2024 15:19:00 04/23/19 25 04/27/2024 IGP, APTIM A HPV, RFX 16/18 ,45 clinician provided ICD10: Watson hummel Z01.4 19 Not Available [facility] ([facility]) [address] [place], [address], 04/27/2024 15:19:00 04/23/19 25 04/27/2024 IGP, APTIM A HPV, RFX 16/18 ,45 performed by: Watson moreno, Cytoestephanie hummel (ASCP ) Not Available [facility] ([facility]) [address] [place], [address], 04/27/2024 15:19:00 04/23/19 25 04/27/2024 IGP, APTIM A HPV, RFX 16/18 ,45 . . Not Available [facility] ([facility]) [address] [place], [address], 04/27/2024 15:19:00 04/23/19 25 04/27/2024 IGP, APTIM A HPV, RFX 16/18 ,45 note: Watson hummel The Pap smear is a scree anaid test desig mayra to aid in the detec tion of carole ligna nt and malig nant condi tions of the uteri ne cervi x. It is not a diagn ostic proce dure and shoul d not be used as the sole means of detec ting cervi marie cance r. Both false -posi tive and false -nega tive repor ts do occur . Not Available [facility] ([facility]) [address] [facility], [place], [address], 04/27/2024 15:19:00 04/23/19 25 04/27/2024 IGP, APTIM A HPV, RFX 16/18 ,45 test methodology: Commen t This liqui d based ThinP rep(R ) pap test was scree mayra with the use of an image guide sylvie galloway. Not Available [facility] ([facility]) [address] [facility], [place], [address], 04/27/2024 15:19:00 04/23/19 25 04/27/2024 IGP, APTIM A HPV, RFX 16/18 ,45 HPV genotype reflex Commen t Crite gloria not met, HPV Genot ype not perfo rmed. Not Available [facility] ([facility]) [address] [facility], [place], [address], 04/27/2024 15:19:00 10/21/19 24 10/21/2023 XR, chest , 2 view No observ ation record ed. [address], [place], [address], 10/21/2023 13:55:32 10/21/19 24 10/21/2023 XR, chest , 2 view No observ ation record ed. [id number] [facility] [address], [place], [address], 10/21/2023 13:55:23 10/21/19 24 10/21/2023 imagi ng/di agnos tic resul t No observ ation record ed. [email or web address], [place], [address], 10/22/2023 11:00:08 10/21/19 24 10/21/2023 XR, chest , 1 view No observ ation record ed. [address] [address], [place], [address], 10/22/2023 10:59:27 11/06/19 24 11/06/2023 PFT, compl ete No observ ation record ed. [address] [address], [place], [address], 11/07/2023 10:19:59 11/21/19 24 11/06/2023 6 minut e walk test* No observ ation record ed. [address] [address], [place], [address], 11/21/2023 13:03:43 12/05/19 24 12/05/2023 NM, bone scan, whole body No observ ation record ed. [address] [address], [place], [address], 12/09/2023 14:47:11 12/06/19 24 12/06/2023 XR, elbow , 3 or more view No observ ation record ed. [address] [address], [place], [address], 12/09/2023 15:07:03 12/16/19 24 12/16/2023 lab* No observ ation record ed. [email or web address] [address], [place], [address], 12/18/2023 08:01:33 12/16/19 24 12/16/2023 lab* No observ ation record ed. [address], [address], 12/18/2023 08:01:39 12/16/19 24 12/16/2023 lab* No observ ation record ed. [address], [address], 12/18/2023 08:01:46 12/17/19 24 12/16/2023 lab* No observ ation record ed. [address], [address], 12/18/2023 08:01:52 12/17/19 24 12/17/2023 lab* No observ ation record ed. [address], [address], 12/18/2023 08:01:58 12/18/19 24 12/18/2023 CT, elbow , w/o contr ast No observ ation record ed. [address], [address], 12/19/2023 11:32:05 12/20/19 24 12/20/2023 lab* No observ ation record ed. [address], [address], 12/24/2023 13:07:32 12/20/19 24 12/20/2023 lab* No observ ation record ed. [address], [address], 12/24/2023 13:07:25 12/20/19 24 12/20/2023 lab* No observ ation record ed. [address], [address], 12/24/2023 13:07:10 03/30/20 24 03/30/2024 CT, chest , w/ contr ast No observ ation record ed. [address], [address], 03/30/2024 17:40:32 04/01/19 25 04/01/2024 XR, chest , 2 view No observ ation record ed. [address], [address], 04/02/2024 08:12:04 04/01/19 25 04/01/2024 CT, chest , w/ contr ast No observ ation record ed. [address] [facility] [address], [place], [address], 04/02/2024 08:13:24 04/02/19 25 04/02/2024 trans -thor acic echoc ardio gram (TTE) (PROC ) No observ ation record ed. [address] [facility] [address], [place], [address], 04/06/2024 17:18:56 Result Notes None recorded. 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 13580551 Active 2021 JARED LOCKHART Attn: Zeb rees,[address] [place], [place], [address] [place] [address], [place] - [facility] 2 15:26:15 Obesity 841728717 Active 2021 JARED LOCKHART Attn: Zeb rees,[address] [place], [address] [place] [address], [place] [facility] 2 15:26:17 Prediabetes 545754754 Active 2021 AJRED LOCKHART Attn: Zeb g,[address] [facility], [place], [address], [place] [facility] 2 15:26:18 Smoker 21915934 Active 2021 JARED LOCKHART Attn: Zeb g,[address] [facility], [place], [address], [place] [facility] 2 15:26:20 Chronic obstructive pulmonary disease 51747014 Active 2021 JARED LOCKHART Attn: Zeb g,[address] [facility], [place], [address], [place] [facility] 2 15:26:21 Hypercalcem ia 83721536 Active 2021 JARED LOCKHART Attn: Zeb rees,[address] [place], [address] [place] [address], [place] [facility] 2 09:44:58 Neck pain 49580817 Active 2021 JARED LOCKHART Attn: Zeb rees,[address] [place], [address] [place] [address], [place] [facility] 2 09:45:00 Anxiety 31532860 Active 2021 JARED LOCKHART Attn: Zeb rees,[address] [place], [address] [place] [address], [place] [facility] 2 09:45:01 Thoracic back pain 150269919 Active 2021 JARED LOCKHART Attn: Zeb rees,[address] [place], [address] [place] [address], [place] [facility] 2 09:45:02 Screening for malignant neoplasm of respiratory tract Active 2021 JARED LOCKHART Attn: Zeb rees,[address] [place], [address] [place] [address], [place] [facility] 2 09:45:05 Dyspnea on exertion 08805901 Active 2022 JARED LOCKHART Attn: Zeb rees,[address] [place], [address] [place] [address], [place] [facility] 3 13:24:31 Degeneratio n of lumbar interverteb ral disc 82268763 Active 2022 JARED LOCKHART Attn: Zeb rees,[address] [place], [address] [place] [address], [place] - [facility] 3 14:12:31 Degeneratio n of cervical interverteb ral disc 38381858 Active 2022 JARED LOCKHART Attn: Zeb rees,[address] [place], [address], [place] [facility] 3 09:37:49 Morbid obesity 767040576 Active 2022 JARED LOCKHART Attn: Zeb rees,[address] [facility], [place], [address], [place] [facility] 3 12:53:33 Sleep apnea 56917431 Active 2022 JARED LOCKHART Attn: Zeb rees,[address] [facility], [place], [address], [place] [facility] 3 13:21:37 Non-small cell lung cancer 570970511 Active 2023 JARED LOCKHART Attn: Zeb rees,[address] [facility], [place], [address], [place] [facility] 4 16:00:44 Dyspnea 087220646 Active 2023 JARED LOCKHART Attn: Zeb rees,[address] [facility], [place], [address], [place] [facility] 4 13:10:35 Closed fracture of right elbow 4715834173609 9103 Active 2023 JARED LOCKHART Attn: Zeb rees,[address] [facility], [place], [address], [place] [facility] 4 13:10:39 Problem Notes None recorded. Procedures Surgical History None recorded. Imaging Results Imaging Date Name Status LastModified by Organization Details LastModified Time 10/21/2023 XR, chest, 2 view completed [address], [address], 10/21/2023 13:55:32 10/21/2023 XR, chest, [address] view completed [address], [place], [address], 10/21/2023 13:55:23 10/21/2023 imaging/diagnostic result completed [address], [place], [address], 10/22/2023 11:00:08 10/21/2023 XR, chest, 1 view completed [address], [place], [address], 10/22/2023 10:59:27 11/06/2023 PFT, complete completed [address] [address], [place], [address], 11/07/2023 10:19:59 11/06/2023 6 minute walk test* completed [address] [address], [place], [address], 11/21/2023 13:03:43 12/05/2023 NM, bone scan, whole body completed [address] [address], [place], [address], 12/09/2023 14:47:11 12/06/2023 XR, elbow, 3 or more view completed [address] [address], [place], [address], 12/09/2023 15:07:03 12/16/2023 lab* completed [address] [address], [place], [address], 12/18/2023 08:01:33 12/16/2023 lab* completed [address] [address], [place], [address], 12/18/2023 08:01:39 12/16/2023 lab* completed [address] [address], [place], [address], 12/18/2023 08:01:46 12/16/2023 lab* completed [address], [address], 12/18/2023 08:01:52 12/17/2023 lab* completed [address] [address], [place], [address], 12/18/2023 08:01:58 12/18/2023 CT, elbow, w/o contrast completed [address] [address], [place], [address], 12/19/2023 11:32:05 12/20/2023 lab* completed [address] [address], [place], [address], 12/24/2023 13:07:32 12/20/2023 lab* completed [address] [address], [place], [address], 12/24/2023 13:07:25 12/20/2023 lab* completed [address] [address], [place], [address], 12/24/2023 13:07:10 03/30/2024 CT, chest, w/ contrast completed [address] [address], [place], [address], 03/30/2024 17:40:32 04/01/2024 XR, chest, 2 view completed [address] [address], [place], [address], 04/02/2024 08:12:04 04/01/2024 CT, chest, w/ contrast completed [address], [address], 04/02/2024 08:13:24 04/02/2024 trans-thoracic echocardiogram (TTE) (PROC) completed [address] [address], [place], [address], 04/06/2024 17:18:56 Procedure Notes None recorded. Medical Equipment None Reported. Allergies Allergen ID Allergen Name Allergen Category Reaction Reaction Severity Criticality Documentation Date Start Date Code Code System Note Provider Name and Address Organization Details Recorded Time 135903 Zoloft medicatio n rash Not available Not available 04/22/2018 66284 RxNorm Not Available Not Available Not Available Medications Name Sig Start Date Stop Date [...] TAKE 1 TABLET BY MOUTH TWICE DAILY 2024 active Not Available Not Available Not Avai lable nicotine 21 mg/24 hr daily transdermal patch [...] Not Available Not Available No t Available levofloxaci n 500 mg tablet TAKE 1 TABLET BY MOUTH DAILY active Not Available Not Available No t Available albuterol sulfate HFA 90 mcg/actuati on aerosol inhaler INHALE 2 PUFFS BY MOUTH FOUR TIMES DAILY NEEDED active Not Available Not Available No t Available losartan 100 mg tablet TAKE 1 TABLET BY MOUTH DAILY 2024 active Not Available Not Available Not Avai lable nortriptyli ne 50 mg capsule TAKE 1 CAPSULE BY MOUTH DAILY 2024 active Not Available Not Available Not Avai lable amoxicillin 875 mg-potassiu m clavulanate 125 mg [...] INHALE 2 PUFFS BY MOUTH TWICE DAILY 2024 active Not Available Not Available Not Avai lable Vios Aerosol Delivery System USE DIRECTED active Not Available Not Available No t Available Victoza 2-Hong 0.6 mg/0.1 mL (18 mg/3 mL) subcutaneou s pen injector INJECT 1.2 MG UNDER THE SKIN EVERY DAY active Not Available Not Available No t Available Spiriva Respimat 2.5 mcg/actuati on solution for inhalation INHALE 2 PUFFS BY MOUTH DAILY active Not Available Not Available No t Available TRUEplus Pen Needle 31 gauge x 16 USE TO INJECT VICTOZA EVERY DAY active [...] (8 mg/3 mL) subcutaneou s pen injector Inject by subcutane ous route for 56 days. 2024 active Not Available Not Available Not Avai [...] Updated DateTime 4 152.4 cm 42.2 kg/m2 76448.9 5 g 74 /min 94 % 94 % 139 mm[Hg] 80 mm[Hg] Idalia [place] - [facility] 4 14:01:50 Date Recorded Body height Body mass index (BMI) Body weight Oxygen saturation Oxygen saturation in Arterial blood by Pulse oximetry Heart rate Respiratory rate Systolic blood pressure Diastolic blood pressure Provider Name and Address Organization Details Last Updated DateTime 4 152.4 cm 42 kg/m2 14315.3 6 g 95 % 95 % 99 /min 20 /min 126 mm[Hg] 88 mm[Hg] Ember Ethan, [place] - [facility] 17:06:04 Date Recorded Body height Body mass index (BMI) Body weight Heart rate Provider Name and Address Organization Details Last Updated DateTime 12/16/2023 152.4 cm 40.8 kg/m2 52265.81 g 64 /min Idalia Guillermo [facility] 12/16/2023 12:39:38 Date Recorded Oxygen saturation Oxygen saturation in Arterial blood by Pulse oximetry Provider Name and Address Organization Details Last Updated DateTime 12/16/2023 77 % 77 % JARED LOCKHART Attn: Accounting,[address] [place], [address], [facility] 12/16/2023 13:07:02 Date Recorded Body height Body mass index (BMI) Body weight Oxygen saturation Oxygen saturation in Arterial blood by Pulse oximetry Systolic blood pressure Diastolic blood pressure Provider Name and Address Organization Details Last Updated DateTime 152.4 cm 41.3 kg/m2 35610.3 9 g 98 % 98 % 105 mm[Hg] 73 mm[Hg] Idalia Guillermo [facility] 14:01:51 Date Recorded Heart rate Provider Name an d Address Organization Details Last Updated DateTime 01/13/2024 60 /min Ora LOCKHART Attn: Accounting,[address] [place], [address], [facility] 01/13/2024 14:13:18 Date Recorded Body height Body mass index (BMI) Body weight Provider Name and Address Organization Details Last Updated DateTime 04/23/2024 152.4 cm 40.2 kg/m2 38652.03 g Idalia Guillermo [facility] 04/23/2024 13:59:49 Date Recorded Heart rate Systolic blood pressure Diastolic blood pressure Provider Name and Address Organization Details Last Updated DateTime 04/23/2024 103 /min 133 mm[Hg] 87 mm[Hg] JARED LOCKHART Attn: Accounting,[address] [place], [address], [facility] 04/23/2024 14:24:55 Social History Question Answer Notes LastModified by Organizat ion Details LastModified Time Tobacco Smoking Status Former Smoker quit 2023 JARED LOCKHART Attn: Accounting,[address] [facility], [place], [address], [facility] 01/13/2024 14:04:02 What Is Your Level Of Alcohol Consumption? Occasional Information not available 06/15/2019 What Is Your Level Of Caffeine Consumption? None Information not available 06/15/2019 How Much Tobacco Do You Chew? None Information not available 06/15/2019 In The 14 Days Before Symptom Onset, Have You Had Close Contact With A Laboratory-confir med COVID-19 While That Case Was Ill? No [email or web address] Information not available 01/21/2020 In The 14 Days Before Symptom Onset, Have You Had Close Contact With A Person Who Is Under Investigation For COVID-19 While That Person Was Ill? No [email or web address] Information not available 01/21/2020 Have You Been To An Area Known To Be High Risk For COVID-19? No Information not available 01/21/2020 What Type Of Diet Are You Following? REGULAR [email or web address] Information not available 01/21/2020 Which Illicit Or Recreational Drugs Have You Used? None Information not available 06/15/2019 Do You Or Have You Ever Used E-cigarettes Or Vape? Never Used Electronic Cigarettes Information not available 06/15/2019 Education 12 [email or web address] Information no t available 01/21/2020 What Is Your Occupation? [employer] [email or web address] Information not available 01/21/2020 Are There Any Guns Present In Your Home? No [email or web address] Information not available 01/21/2020 Marital Status [email or web address] Informatio n not available 01/21/2020 What Was The Date Of Your Most Recent Tobacco Screening? 04/23/2024 Information not available 04/23/2024 Performs Monthly Self-breast Exam? Yes [email or web address] Information no t available 01/21/2020 Seat Belts Used Routinely Yes [email or web address] Information not available 01/21/2020 Smoke Alarm In Home Yes [email or web address] Information not available 01/21/2020 Do You Have [...] 06/15/2019 Do You Use Sunscreen Routinely? Yes [email or web address] Information not available 01/21/2020 Has Tobacco Cessation Counseling Been Provided? Yes [email or web address] Information not available 09/14/2018 On What Date Was Tobacco Cessation Counseling Provided? 11/18/2023 [email or web address] Information not available 11/18/2023 How Many Years Have You Smoked Tobacco? 21 Information not available 06/15/2019 Sex: Female Functional Status Question Answer Note LastModified by Organization D etails LastModified Time What is your exercise level? None [email or web address] Information not available 01/21/2020 Mental Status None recorded. Family History Relationship Description Onset Age of this Age Resolved Age Notes LastModified by Organization Details LastModified Time Mother Diabetes mellitus [email or web address] Not available 04/02 15:49:06 Mother Hypertensive disorder [email or web address] Not available 04/02 15:49:27 Father Hypertensive disorder [email or web address] Not available 04/02 15:49:27 Brother Hypertensive disorder [email or web address] Not available 04/02 15:49:27 Paternal Aunt Malignant tumor of breast 70 Not available 2024 14:21:20 Medical History Condition Response Coronary Artery Disease N Other N High Blood Pressure Y Atrial Fibrillation N Thyroid Problems N Kidney or Bladder Problems N GI Problems N Depression N COPD Y Blood Clots N Skin Problems N Eating Disorder N Anemia N Heart Attack ([place]) N Anxiety Disorder Y Diabetes N Muscle, Joint, or Bone Problems Y Seizures/Epilepsy N Acid Reflux (GERD) N Cancer N Stroke N Asthma N Allergies Y ADHD N Substance Abuse N High Cholesterol N Hepatitis N Liver Disease N Schizophrenia N Headaches N Heart Failure N Osteoporosis N Gynecological HistoryNo gynecological history recorded. Obstetrics [...] [facility] 06/06/2022 14:16:19 Pneumococcal conjugate PCV20, polysaccharide RWC477 conjugate, adjuvant, PF 3 completed JARED LOCKHART Attn: Accounting,[address] [place], [address], [place] [facility] 06/19/2022 13:21:40 Influenza, high-dose, trivalent, PF 4 completed JARED LOCKHART Attn: Accounting,[address] [place], [address], [place] [facility] 01/13/2024 14:31:27 Past Encounters Encounter ID Performer Location Encounter Start Date Encounter Closed Date Diagnosis/Indication Diagnosis SNOMED-CT Code Diagnosis ICD10 Code Diagnosis Note [id number] Melvina Reynolds MD Counts include 234 beds at the [facility] [address] [place] [address] 04/22/2018 15:11:06 04/28/2018 09:29:29 Degenerative joint disease involving multiple joints 331749831 M15.9 Essential hypertension 81515462 I10 Standardiz ed adult depression screening tool completed 1818315030 [address]64[address] Z13.89 patient does not appear to be significan tly depressed. [id number] Melvina Reynolds MD Counts include 234 beds at the [facility] [address] [place] [address] 09/05/2018 11:20:24 09/15/2018 09:59:27 Essential hypertension 49103357 I10 pt was also advised to quit smoking. Screening mammography 24 089585 Z12.31 Screening for malignant neoplasm of colon 341564458 Z12.11 Body mass index 30+ - obesity 212005518 Z68.39 discussed low fat, low carb diet, and encouraged exercise. Patient advised to limit salt and caffeine intake to maintain good blood pressure. [id number] Melvina Reynolds MD [facility] [address] [place] [address] 01/07/2019 15:10:07 01/12/2019 10:16:54 Herpes zoster 1550566 B02.9 [id number] Melvina Reynolds MD [facility] [address] [place] [address] 06/15/2019 15:10:54 06/29/2019 09:10:54 Moderate persistent asthma [id number] J45.40 Essential hypertension 83904371 I10 pt was also advised to quit smoking. Moderate r ecurrent major depression 74158620 F33.1 Screening mammography 24 922792 Z12.31 Screening for malignant neoplasm of colon 368604111 Z12.11 [id number] Melvina Reynolds MD [facility] [address] [place] [address] 01/21/2020 16:01:28 01/22/2020 07:57:11 Pain in right knee 7027564253 79349 M25.561 may require knee surgery but would prefer to put it off for a while. Trying to give up smoking 139842906 Z72.0 encouraged her to stop smoking to decrease the risks of surgery [id number] JARED LOCKHART [facility] [address] [place] [address] 11/03/2020 12:07:58 11/14/2020 07:22:30 Essential hypertension 65410657 I10 patient will come by office for [...] for BP is <140/90 Screening mammography 24 021613 Z12.31 Colonoscopy declined 047 1519901 76843 Z53.20 [id number] JARED LOCKHART [facility] [address] [place] [address] 06/21/2021 13:55:40 06/22/2021 08:33:21 Screening for malignant neoplasm of colon 709827892 Z12.11 patient has refused past colonoscop ies. denies family hx colon cancer, blood in stool, changes in BM. Agrees to cologuard. Chronic ob structive pulmonary disease 32350804 J44.9 Patient smoking 1/2 ppd. does not want to do PFT. She states she is controlled with current medication s. [place] not thought about quitting smoking. no one smokes at home with her. + for sob on walking 2-3 blocks. Decreased heart sounds and air movement on exam. - stop smoking, counseled today Smoker 88420684 F17.200 smoking 1/2 ppd Prediabetes 245689014 R7 3.03 5.9 last year. She eats [...] weight loss can be very helpful. Obesity 291303096 E66.9 Essential hypertension 87998050 I10 patient will come by office for BP check. Advised to check BP regularly with a goal of <140/90, if BP consistent ly >140/90, advised to contact clinic Discussed DASH diet Advised weight loss and diet is best way to control BP Advised 30 minutes of exercise minimum daily Advised tobacco, alcohol, caffeine all increase BP Advised goal for BP is <140/90 [id number] JARED AVINA Counts include 234 beds at the [facility] [address] [place] [address] 07/28/2021 08:08:48 07/31/2021 09:38:36 Cough 01035891 R05.1 PVproducti ve cough, sore throat, headache k9yciuox alevevacci nated for COVID and flu, home [...] if not or on SSRI antidepres sants. [id number] JARED LOCKHART Counts include 234 beds at the [facility] [address] [place] [address] 01/29/2022 13:54:21 01/30/2022 12:20:23 Screening for malignant neoplasm of colon 462808392 Z12.11 patient has refused past colonoscop ies. denies family hx colon cancer, blood in stool, changes in BM. Agrees to cologuard. Chronic ob structive pulmonary disease 39607667 J44.9 Patient smoking 1 ppd. does not want to do PFT. She states she is controlled with current medication s. [place] not thought about quitting smoking. no one smokes at home with her. + for sob on walking 2-3 blocks. Decreased heart sounds and air movement on exam. - stop smoking, counseled today Smoker 22391552 F17.200 smoking 1ppd Prediabetes 955484670 R7 3.03 5.9 last year. She eats [...] weight loss can be very helpful. Obesity 364156709 E66.9 Essential hypertension 53810853 I10 patient will come by office for [...] Screening for malignant neoplasm of respiratory tract 752632917 Z12.2 45 pack year smoking hx, smoking 1ppd currently. Sleep apnea 59877210 G47 .30 BMI 40.9, htn, snoring, apnea, days time somnolence , COPD.- sleep study Anxiety 24368664 F41.9 controlled . needs refill Neck pain 55248299 M54.2 cervical pain on palpation Thoracic back pain 62177 8004 M54.6 thoracic pain on palpation - obtain xray - Avoid heavy lifting and over-exert ion. - Avoid bed-rest do some gentle stretching and continue with normal activities . - Use ice to relieve pain, 15 minutes every 2 4 hours. - Use heat to relax muscles, 15 minutes every 2 4 hours. - Sleep on a firm surface and avoid lying on the sofa. Screening mammography 24 955509 Z12.31 Hypercalcemia 36232632 E 83.52 followed by endo. saw them 12/2021 and has f/u in 3 months. [id number] JARED LOCKHART Counts include 234 beds at the [facility] [address] [place] [address] 06/06/2022 13:54:26 06/06/2022 14:40:17 Chronic obstructive pulmonary disease 50545228 J44.9 Patient smoking 1 ppd. does not want to do PFT. She states she is controlled with current medication s. [place] not thought about quitting smoking. no one smokes at home with her. + for sob on walking 2-3 blocks. Decreased heart sounds and air movement on exam. - stop smoking, counseled today Administra tion of pneumococcal vaccine 56671555 Z23 given today Muscle weakness 81690412 M62.81 weakness going up stairs. at risk for falls. agrees to PT. Prediabetes 151197312 R7 3.03 5.9 last year. She eats [...] Dyspnea on exertion 6084 5006 R06.09 declines PFTdewilbert vaz pulm referralmartinez LDCT, I rather not know [id number] JARED LOCKHART Counts include 234 beds at the [facility] [address] [place] [address] 07/04/2022 13:58:32 07/04/2022 15:10:06 Chronic obstructive pulmonary disease 77477401 J44.9 Patient smoking 1 ppd. does not want to do PFT. She states she is controlled with current medication s. [place] not thought about quitting smoking. no one smokes at home with her. + for sob on walking 2-3 blocks. Decreased heart sounds and air movement on exam. - stop smoking, counseled todayprevn ar 20.05/2022 Muscle weakness 34628514 M62.81 first PT session completed at [facility] an is 2x per week Prediabetes 877517012 R7 3.03 5.9 05/2022. She eats high [...] Dyspnea on exertion 6084 5006 R06.09 jermaine rees PFTjose vaz pulnilesh referralmartinez LDCT, I rather not know Screening for malignant neoplasm of colon 813339384 Z12.11 patient has refused past colonoscop ies. denies family hx colon cancer, blood in stool, changes in BM. Agrees to cologuard. Smoker 82080017 F17.200 smoking 1ppd Obesity 741341492 E66.9 Essential hypertension 49004883 I10 134/76 Advised to check BP regularly with a goal of <140/90, if BP consistent ly >140/90, advised to contact clinicDisc ussed DASH dietAdvise d weight loss and diet is best way to control BPAdvised 30 minutes of exercise minimum dailyAdvis ed tobacco, alcohol, caffeine all increase BPAdvised goal for BP is <140/90 Screening for malignant neoplasm of respiratory tract 018585354 Z12.2 45 pack year smoking hx, smoking 1ppd currently. - declines LDCT Sleep apnea 07341580 G47 .30 BMI 40.9, htn, snoring, apnea, days time somnolence , COPD.- sleep study Anxiety 58931372 F41.9 controlled . needs refill Neck pain 24300525 M54.2 cervical pain on palpation Screening mammography 24 886929 Z12.31 missed appointmen twill reschedule Hypercalcemia 96363626 E 83.52 followed by endo. saw them 12/2021 and has f/u in 3 months. HIV screening 561812859 Z11.4 Degenerati on of cervical intervertebral disc 23837598 M50.30 01/2022: severe disc disease in neck (C5-6, C6-7). Mild degernativ e disease in thoracic spine. sending to ortho [id number] Eden Verdin CMA Counts include 234 beds at the [facility] [address] [place] [address] 07/05/2022 12:20:29 07/05/2022 12:51:23 [id number] JARED LOCKHART Counts include 234 beds at the [facility] [address] [place] [address] 11/26/2022 12:19:34 11/27/2022 15:52:58 Chronic obstructive pulmonary disease 09519275 J44.9 Patient smoking 1 ppd. does not [...] counseled today- prevnar 20 given 05/2022 Prediabetes 709366241 R7 3.03 5.9 05/2022. She eats high [...] nies LDCT, I rather not know Smoker 03674348 F17.200 smoking 1ppddoes not want to quit Screening for malignant neoplasm of respiratory tract 437935999 Z12.2 45 pack year smoking hx, smoking 1ppd currently. - declines LDCT Screening mammography 24 924968 Z12.31 missed appointmen thas not reschedule dnew order Morbid obesity 728412700 E66.01 BMI 41.811 lb weight gain since 3Pati ent denies fam hx of thyroid cancer, personal hx pancreatit is. Medication side effects were reviewed with patient and include MIC, pancreatit is, nausea, vomiting, stomach upset. Patient was shown pen and was shown how to clean area, inject pen, and how often to administer . [id number] JARED LOCKHART [facility] [address] [place] [address] 06/03/2023 12:17:13 06/03/2023 13:00:52 Morbid obesity 427650705 E66.01 BMI 42. wants mounjaro/z epboundPat ient denies fam hx of thyroid cancer, personal hx pancreatit is. Medication side effects were reviewed with patient and include MIC, pancreatit is, nausea, vomiting, stomach upset. Patient was shown pen and was shown how to clean area, inject pen, and how often to administer . [id number] JARED LOCKHART [facility] [address] [place] [address] 2023 13:48:06 2023 14:30:21 Morbid obesity 052024440 E66.01 BMI 42.8 on epbound 2.5 and [...] to administer . Adult heal th examination 279707533 Z00.00 here for labsincrea se zepboundst op sweetsdecl dilan all cancer screenings [id number] Ember Long MA Counts include 234 beds at the [facility] [address] [place] [address] 07/15/2023 15:14:51 07/15/2023 15:24:54 [id number] JARED LOCKHART Counts include 234 beds at the [facility] [address] [place] [address] 11/18/2023 13:45:23 11/18/2023 16:05:52 Chronic obstructive pulmonary disease 36414321 J44.9 Patient smoking 1 ppd. needs refills [...] today- prevnar 20 given 05/2022 Morbid obesity 863249712 E66.01 BMI 42.2 on ozempic .5 mg and will increase today. she denies any side effects.no weight lossadvise d stop buying sweets for homeshe is given a list of nutrition goals for each day including protein and veggies servingssh e verbalizes understand ing that if she does not sustain enough protein she will lose muscle mass Non-small cell lung cancer 057671423 C34.90 newly dx adenocarci noma of lung. undergoing evaluation to have surgery v radiationf ollowing Dr Cash montejo smoking, trying to quitsurgeo n: Dr Roberson m: Dr Lr [id number] JARED AVINA Counts include 234 beds at the [facility] [address] [place] [address] 12/05/2023 17:03:12 12/05/2023 17:19:57 Bursitis of olecranon of right elbow 5161659252 55336 M70.21 x1 wk, increased swelling and redness [...] ates that she has radiation appt at [place] tomorrow and will go to ED after appt [id number] JARED LOCKHART [facility] [address] [place] [address] 12/16/2023 12:34:09 12/16/2023 13:43:37 Closed fracture of right elbow 8156554900 0505147 S42.401K Right elbow pain 12/06/2023. xray shows soft tissue swelling posterior to the olecranon and proximal ulna (could be olecranon bursitis). small chronic nonuinted fracture with corticated margins at tip of coronoid process. Dyspnea 876499065 R06.00 02 stats 76% in office and c/o of worsening sob. need to r/o PE due to new lung cancer b COPD exacerbati on.sent to hospital, reluctant but agrees.did not accept ambulance ride. going to [place] in personal car.PEX: decreased breath sounds LLQ. no wheezing. decreased air movement on expiration all lung bases. b/l palms erythemato us. [id number] JARED LOCKHART [facility] [address] [place] [address] 01/13/2024 13:50:19 01/13/2024 14:37:53 Sleep apnea 02682420 G47.30 BMI 41.3, htn, snoring, apnea, days time somnolence , COPD.- sleep study Morbid obesity 695813038 E66.01 BMI 41.3 on ozempic 2 mg and will increase today. she denies any side effects.no weight lossadvise d stop buying sweets for homeshe is given a list of nutrition goals for each day including protein and veggies servingss shanon verbalizes understand ing that if she does not sustain enough protein she will lose muscle mass Moderate p ersistent asthma 136192961 J45.40 refill Administra tion of influenza vaccine 67141710 Z23 [id number] JARED LOCKHART Counts include 234 beds at the [facility] [address] [place] [address] 04/23/2024 13:40:32 04/23/2024 14:31:08 Gynecologic examination 28016046 Z01.419 Pap obtained, unable to visualize entire cervix due to pain/atrop hy. obtained pap. will call with results.CB E performedB reast education provided Screening mammography 24 604285 Z12.31 missed appointmen thas not reschedule dnew order Abnormal foot pulse 6943 7003 R09.89 toes appear purple, mildly decreased PT pulses, unable to feel pedal pulses. will send to vascularno longer smokes but is a long time smoker Morbid obesity 441607062 E66.01 BMI 40.2 on ozempic 2 mg and will increase today. she denies any side effects.no weight lossadvise d stop buying sweets for homeshe is given a list of nutrition goals for each day including protein and veggies servingvalerioh e verbalizes understand ing that if she does not sustain enough protein she will lose muscle mass Health Concerns Section Related Observation LastModified by Organization Detai ls LastModified Time None Recorded Concern Status LastModified by Organization Details LastModified Time None Recorded Advance Directives Directive None Recorded Payers Encounter Date Sequence Insurance Name Policy Number Policy Villegas Covered Member ID Villegas Member ID Guarantor Name 11/18/2023 1 [place] [employer] Sherri Ramirez [id number] Sherri Ramirez 12/05/2023 1 [place] Sherri Ramirez [id number] Sherri Ramirez 12/16/2023 1 [place] Ramirez [id number] Sherri Ramirez 12/16/2023 2 [place]IC[place] REPLACEMENT PRIMARY) Sherri Ramirez [id number] Sherri Ramirez 01/13/2024 1 [place] Ramirez [id number] Sherri Ramirez 01/13/2024 2 [place]PLACEMENT [place]) Sherri Ramirez [id number] Sherri Ramirez 04/23/2024 1 [place] Sher[place] Ramirez [id number] Sherri Ramirez 04/23/2024 2 [employer] INS[employer]ANCE [employer] - [facility] Sherri Ramirez [id number] Sherri Ramirez Notes Date Note Type Note [...] new inhaler. JARED LOCKHART Attn: Accounting[address] [place], [address], [facility] 11/18/2023 16:03:57 12/05/2023 text/html Pt presents for [...] elbow constantly. JARED AVINA Attn: Accounting[address] [facility], [place], [address], [facility] 12/10/2023 09:17:33 12/16/2023 text/html here for elbow [...] to hospital. JARED LOCKHART Attn: Accounting[address] [facility], [place], [address], [place] [facility] 12/16/2023 13:12:39 01/13/2024 text/html here for ER [...] rehab referral sent by pulm. needs sleep study.CONCHITA hinds put her on xanax?? JARED LOCKHART Attn: Accounting[address] [facility], [place], [address], [facility] 01/13/2024 14:32:30 04/23/2024 text/html here for pap LMP: menopauseLast Pap: long time ago, does not rememberLast mammogram: many years agoFam hx: paternal aunt with breast ca age 70. denies cervical, uterine, ovarian cancers JARED LOCKHART Attn: Accounting[address] [facility], [place], [address], [place] [facility] 04/23/2024 14:26:01 OBGyn Episode No OBEpisode recorded.
--- OUTSIDE RECORDS SUMMARY | 2024-05-26 08:12 | XMS_ITS | Referral Summary ---
Author Organization [facility] Address [address] [place] [address] Care Team Providers Care Performance Test Consultant Name Role Phone Unknown, Provider Primary Care Provider Unavaila ble Source Comments [facility],non-owned [facility] and [facility]ician Practices is amultiple site organization consisting of ambulatory clinics and hospital sitesin [place], [place], [place] and [place]. This disclosure is being madepursuant to the Care Everywhere program and may not contain all information available regarding this patient. Last updated 17.[facility] [place] Allergies Active Allergy Reactions Criticality Noted Date [...] of Treatment Not on file Care Teams Performance Test Consultant Relationship Specialty Start Date End Date Unknown, Provider PCP - General 06/17/23
--- NOTE | 2024-06-18 08:38 | WPDSLEEPSTUD ---
Sleep Study Date of Study: 05/26/24 <Kelin Hassan MD - Last Filed: 06/18/24 11:48> Ordering Provider: Kelin Hassan MD <Kelin Hassan MD - Last Filed: 06/18/24 11:48> Interpreting Physician: Kelin Hassan MD <Kelin Hassan MD - Last Filed: 06/18/24 11:48> Sleep Study Type: Polysomnogram <Kelin Hassan MD - Last Filed: 06/18/24 11:48> Height: 1.52 m <Kelin Hassan MD - Last Filed: 06/18/24 11:48> Weight: 93.44 kg <Kelin Hassan MD - Last Filed: 06/18/24 11:48> Body Mass Index: 40.2 <Kelin Hassan MD - Last Filed: 06/18/24 11:48> 40.2 <Deyanira Johnson DO - Last Filed: 06/18/24 09:01> Neck Circumference (inches): 17 <Kelin Hassan MD - Last Filed: 06/18/24 11:48> Mayking: 3 <Kelin Hassan MD - Last Filed: 06/18/24 11:48> Reason for Sleep Study COPD, hypoxemia, lung cancer <Kelin Hassan MD - Last Filed: 06/18/24 11:48> Sleep History Sherri Ramirez is a 63-year-old woman with lung cancer, uses O2, and she has COPD. Mayking in the office was 13, and she describes being sleepy in the day. Bedtime is midnight, wakes at 8:30 am, has dreams at night. Wakes once to urinate. Caffeine: no coffee; Coke in a small bottle occasionally. Legs: pulls legs up in her sleep, right knee is troublesome. She sometimes awakens from sleep short of breath. She generally does not wakes at night with heartburn, belching or coughing.??She snores, sometimes snores loudly enough that others complain. She sometimes has trouble sleeping when she has a cold. She does not wakes up gasping for breath during the night. She falls asleep during the day. She does not experience loss of muscle tone with strong emotion. She never feels paralyzed on waking or falling asleep. She never experiences vivid dreams upon waking or falling asleep. She rarely feels afraid of going to sleep. She sometimes recalls her dreams. She often has thoughts racing through her mind. She rarely feels sad or depressed. She rarely kicks during the night. She sometimes pulls her legs close to her body at night. She never has morning jaw pain, and never grinds her teeth at night. She rarely feels bothered by pain during the day, is rarely awakened by pain during the night. She rarely wakes up feeling stiff in the morning. Normal bedtime is 8:30 p.m. waking once time at night. She takes naps in the day when needed. Habits:??Tobacco:former smoker Caffeine:no coffee, has a small Coke on occasion. Alcohol: none Recreational substances: none <Kelin Hassan MD - Last Filed: 06/18/24 11:48> [facility] Past Medical History Medical History: Medical History Hypertension Right hand dominant COPD (chronic obstructive pulmonary disease) RAISSA (obstructive sleep apnea) Screening for hyperlipidemia Nodule of left lung Major depressive disorder, recurrent, unspecified Essential hypertension Asthma with COPD (chronic obstructive pulmonary disease) Anxiety disorder, unspecified <Kelin Hassan MD - Last Filed: 06/18/24 11:48> Family History Family History: Family History Mother Diabetes mellitus Heart attack Hypertension Father Heart attack Hypertension Smoker <Kelin Hassan MD - Last Filed: 06/18/24 11:48> Social History Social History: Social History Smoking packs per day: 1 Smoking cigarettes per day: 20.0 Years smoked: 40 Smoking pack-years: 40.00 Smoking status: Former smoker Tobacco type: cigarettes Smoking end date: 12/31/23 Alcohol intake: never Substance use: never Substance use type: does not use Do You Feel Safe in your Home?: Yes Lack of Transportation: No Lack of Food: Never True Current Housing: I Have Housing Concerned About Future Housing: No Difficulty Paying Gas/Electric Bills: No Difficulty Paying for Meds: No Currently Unemployed: No Education: High School Diploma/GED Difficulty w/ Childcare or Family Care: No Spiritual care concerns: No <Kelin Hassan MD - Last Filed: 06/18/24 11:48> Medications Home Medications: Home Medications ?Medication ?Instructions ?Recorded ?Confirmed ?Type albuterol sulfate 90 mcg/actuation 2 inhalation inhalation Q4H #8.5 02/17/19 05/06/24 Rx aerosol inhaler (ProAir HFA) grams budesonide-formoterol HFA 160 2 puff inhalation BID 09/08/19 05/06/24 History mcg-4.5 mcg/actuation aerosol inhaler (Symbicort) losartan 100 mg tablet 100 mg PO DAILY 06/13/22 05/06/24 History metoprolol tartrate 50 mg tablet 50 mg PO BID 06/13/22 05/06/24 History nortriptyline 50 mg capsule 50 mg PO DAILY 06/13/22 05/06/24 History semaglutide 0.25 mg or 0.5 mg (2 1 mg subcut WEEKLY 10/15/23 05/06/24 History mg/3 mL) subcutaneous pen injector (Ozempic) tiotropium bromide 2.5 2 puff inhalation DAILY 1 month #4 11/15/23 05/06/24 Rx mcg/actuation mist for inhalation grams (Spiriva Respimat) omeprazole magnesium 20 mg 20 mg PO DAILY heart burn 12/17/23 05/06/24 History capsule,delayed release ([employer] (omeprazole)) nicotine 21 mg/24 hr daily 1 patch transdermal DAILY #30 ea 12/20/23 05/06/24 Rx transdermal patch buspirone 5 mg tablet See Rx Instructions .Route 05/21/24 Rx .COMPLEX #60 tabs <Kelin Hassan MD - Last Filed: 06/18/24 11:48> Sleep Procedure A full night polysomnogram using the [employer] multi-channel system recorded the standard physiologic parameters including EEG, EOG, submentalis EMG, anterior tibialis EMG, EKG, body position, nasal and oral airflow using nasal pressure sensor and thermistor. Respiratory parameters of chest and abdominal movements were recorded with Respiratory Inductance Plethysmography belts. Oxygen saturation was recorded by pulse oximetry. Video monitoring was also performed. Sleep stages, periodic limb movements, and EEG arousals were scored in 30 second epochs according to the criteria of the AASM Scoring Manual. The Apnea-Hypopnea Index was calculated using [facility] guidelines for definition of hypopnea with 4% O2 desaturations while scoring respiratory events. <Kelin Hassan MD - Last Filed: 06/18/24 11:48> Sleep Architecture The total recording time was 404.9 minutes. The total sleep time was 254.0 minutes. Sleep latency was 22.9 minutes. REM latency was - minutes. Sleep efficiency was 62.7%. The patient had 32 awakenings for an awakening index of 7.6. Wake after sleep onset time was 128.0 minutes. The patient spent 30.0 minutes, 11.8% of total sleep time in Stage N1. The patient spent 175.0 minutes, 68.9% in Stage N2. The patient spent 49.0 minutes, 19.3% in Stage N3. The patient spent no time in Stage REM sleep. <eKlin Hassan MD - Last Filed: 06/18/24 11:48> Respiratory Analysis The patient had 129 hypopneas, 14 obstructive apneas, no mixed or central apneas for an overall Apnea Hypopnea Index of 33.8. The REM Apnea Hypopnea Index was 0, as patient had no REM. The NREM Apnea Hypopnea Index was 33.8. The patient had a Central Apnea Hypopnea Index of 0. There were no Respiratory Effort Related Arousals. The Respiratory Disturbance Index is 40.6 events per hour. There was no evidence of Randolph-Howell Respirations. <Kelin Hassan MD - Last Filed: 06/18/24 11:48> Arousals There were 273 total arousals for an arousal index of 64.5. There were 82 spontaneous arousals for an index of 19.4. There were 124 arousals due to respiratory events for an index of 29.3. There were 53 arousals due to periodic limb movements for an index of 12.5. There were 21 arousals due to isolated limb movements for an index of 5.0. <Kelin Hassan MD - Last Filed: 06/18/24 11:48> Periodic Limb Movements The patient had 60 isolated limb movements with an index of 14.2. The patient had 167 periodic limb movements with an index of 39.4. Patient had a total of 227 limb movements with a total limb movement index of 53.6. <Kelin Hassan MD - Last Filed: 06/18/24 11:48> Oximetry Data The patient had an average oxygen saturation of 88.9% in sleep with a minimum oxygen saturation of 80% and a maximum oxygen saturation of 97%. The patient had 139 oxygen desaturations that were 4% or greater resulting in an Oxygen Desaturation Index of 32.8. The patient spent 152 minutes, 38.7% of total sleep time with an oxygen saturation below 88%. This was while using O2 during much of the night. She started the night on room air, saturaiton was staying beloww 88%, so 1 L was added, then increased to 2 L/min due to sustained hypoxemia. <Kelin Hassan MD - Last Filed: 06/18/24 11:48> Snoring Profile Snoring was moderate. <Kelin Hassan MD - Last Filed: 06/18/24 11:48> Cardiac Profile The EKG showed normal sinus rhythm, average pulse rate of 84 bpm with a minimum pulse of rate of 72 bpm and a maximum pulse rate of 96 bpm. Scattered PVCs. No arrhythmias noted. <Kelin Hassan MD - Last Filed: 06/18/24 11:48> EEG Profile Unremarkable, no evidence of seizures. <Kelin Hassan MD - Last Filed: 06/18/24 11:48> Assessment and Plan Assessment and Plan (1) Obstructive sleep apnea: Code(s): G47.33 - Obstructive sleep apnea (adult) (pediatric) <Kelin Hassan MD - Last Filed: 06/18/24 11:48> Status: Acute <Kelin Hassan MD - Last Filed: 06/18/24 11:48> Assessment and Plan: This basic nocturnal polysomnogram on 05/26/2024 shows severe obstructive sleep apnea, the apnea-hypopnea index is 33.8 with desaturation to 80%, while using O2 at 2 L/min, and moderate snoring. There was no REM during this study. The patient did not meet criteria early enough during the night to proceed with the CPAP titration there for she will need to return on a separate night for a dedicated CPAP titration. The patient use oxygen during the study, this was taken off in an attempt to get her baseline saturation and severity without oxygen, this is standard protocol. BMI is 40. Weight management is advised. Clinical data suggests that weight loss of 10% can reduce the severity of respiratory events and snoring and improve AHI by as much as 25%. She had a large number of limb movements, however these did not cause arousals. These may be related to sleep-disordered breathing, and may improve with PAP therapy. <Kelin Hassan MD - Last Filed: 06/18/24 11:48> Data The data obtained during this sleep study is adequate for interpretation. <Kelin Hassan MD - Last Filed: 06/18/24 11:48> Certification This sleep study has been reviewed by a board certified sleep medicine physician. <Kelin Hassan MD - Last Filed: 06/18/24 11:48>
[2024-06-18 11:38] VITALS: BMI 40.2
== END 2024-05-27 07:21 | disposition home or self-care (01) ==
LOC: ANHCSM 08:00
PROVIDERS: PCP Physician Assistant; Visit Provider Internal Medicine Critical Care Medicine
DX: G47.33 Obstructive sleep apnea (adult) (pediatric) (principal); G47.10 Hypersomnia, unspecified
CPT/HCPCS: 95810

== ENCOUNTER 2024-06-30 08:18 | Outpatient (CLI) | payer MEDICARE, MEDICAID, SELFPAY ==
--- NOTE | ~2024-06-30 | CT_ITS ---
Clinical Indication: Lung cancer CT Scan of the Chest with Contrast: Technique: Contiguous sections were acquired throughout the chest after intravenous administration of 75 cc of Omnipaque 350. Dose reduction technique was used on this scan by utilizing automated exposu re control and iterative reconstruction technique. The dose-length product (DLP) was 488.96 mGy-cm. COMPARISON: 04/01/2024 Findings: There is no evidence of any significant mediastinal, hilar or axillary lymphadenopathy. There is no f illing defect in the pulmonary arterial tree to suggest pulmonary embolus. There is no evidence of ao rtic dissection or aneurysm. There is no evidence of pleural or pericardial effusion. Linear scarring or posttreatment change in the left upper lobe is stable to minimally decreased from prior exam. There is linear scarring in the right middle lobe. There is mild emphysema. Images through the upper abdomen reveal cholelithiasis. Impression: Presumed curvilinear scarring or posttreatment change in the left upper lobe is stable to mildly decr eased. Mild emphysema. Reviewed, dictated and finalized at [facility]. Impression: Presumed curvilinear scarring or posttreatment change in the left upper lobe is stable to mildly decreased. Mild emphysema.
--- OUTSIDE RECORDS SUMMARY | 2024-06-30 08:25 | XMS_ITS | Data Portability ---
Author Organization [facility] Kassandra Mathews Address [address] [place] [address] Care Team Providers Care Manager Front Name Role Phone MARK CASEY Primary Care [...] reflex HPV 2024 025 [facility], [address] [facility], [address], [place], [address], 5 15:18:59 Referral vascular surgeon referral 2024 025 [email or web address] Ryan Oreilly MD, [address] [facility] , [address] [address], [place], [address], 5 10:21:00 orthopedic surgeon referral - Right elbow pain 12/06/2023. xray shows soft tissue swelling posterior to the olecranon and proximal ulna (could be olecranon bursitis). small chronic nonuinted fracture with corticated margins at tip of coronoid process. 2023 024 LAYNE [place], [address] [facility], [place], [address], 4 11:05:21 Procedures polysomnogr aphy, split night (PROC) [address], [facility] [facility] [address], [place], [address], 4 08:02:56 Surgeries None recorded. Imaging MAMMO, screening, bilateral [address] (Imaging), [address] [facility] [address], [place], [address], 5 08:14:40 Medication Orders Ozempic 2 mg/dose (8 mg/3 mL) subcutaneou s pen injector 2023 024 [id number], [address] [facility], [place], [place], [id number], 4 14:32:00 albuterol sulfate HFA 90 mcg/actuati on aerosol inhaler 2023 024 [place] [facility] [employer] [facility] #[id number], [address] [facility], [place], [place], [id number], 4 14:33:34 Ozempic 1 mg/dose (4 mg/3 mL) subcutaneou s pen injector 2023 024 [facility] #[id number], [address] [facility], [place], [place], [id number], 4 16:08:18 Spiriva Respimat 2.5 mcg/actuati on solution for inhalation 2023 024 [facility] [facility] #[id number], [address] [facility], [place], [place], [id number], 4 14:31:00 Patient TargetsNo targets recorded. Patient Instructions Encounter Date Encounter Id Patient Instructions Last Modified By Organization Details Last Modified Time 04/23/2024 [id number] A healthy lifestyle: care instructions Not available [...] of coronoid process. Referring Physician: Mark Casey Manager Utilization Management, Encounter Date: 12/16/2023 Vascular Surgeon Referral fo r Abnormal foot pulse Referring Physician: Mark Casey Manager Utilization Management, Encounter Date: 04/23/2024 Results Created Date Observation Date Name Description Value Unit Range Abnormal Flag Note LastModifiedBy Organization Detail LastModifiedTime 04/23/1904/23/2024 IGP,A PTIMA HPV,A GE GDLN age gdln acog testing 30-65 Not Available [facility] ([facility]) [address] [facility], [place], [address], 04/27/2024 15:18:59 04/23/1904/25/2024 IGP, APTIM A HPV, RFX 16/18 ,45 HPV aptima Negati ve negati ve This nucle ic acid ampli ficat ion test detec ts fourt een high- risk HPV types (16,1 8,31, 33,35 ,39,4 5,51, 52,56 ,58,5 9,66, 68) witho ut diffe renti ation . Not Available [facility] ([facility]) [address] [facility], [place], [address], 04/27/2024 15:19:00 04/23/19 25 04/27/2024 IGP, APTIM A HPV, RFX 16/18 ,45 diagnosis: Commen t NEGAT ANANDA FOR INTRA EPITH ELIAL LESIO N OR MALDANIEL PUCKETT . Not Available [facility] ([facility]) [address] [place], [address], 04/27/2024 15:19:00 04/23/19 25 04/27/2024 IGP, APTIM A HPV, RFX 16/18 ,45 specimen adequacy: Watson hummel Satis facto ry for evalu ation . Endoc ervic al and/o r squam ous metap lasti c cells (endo cervi marie compo nent) are prese nt. Not Available [facility] ([facility]) [address] [place], [address], 04/27/2024 15:19:00 04/23/19 25 04/27/2024 IGP, APTIM A HPV, RFX 16/18 ,45 clinician provided ICD10: Watson hummel Z01.4 19 Not Available [facility] ([facility]) [address] [place], [address], 04/27/2024 15:19:00 04/23/19 25 04/27/2024 IGP, APTIM A HPV, RFX 16/18 ,45 performed by: Watson moreno, Cytoestephanie hummel (ASCP ) Not Available [facility] ([facility]) [address] [place], [address], 04/27/2024 15:19:00 04/23/19 25 04/27/2024 IGP, APTIM A HPV, RFX 16/18 ,45 . . Not Available [facility] ([facility]) [address] [place], [address], 04/27/2024 15:19:00 04/23/19 25 04/27/2024 IGP, APTIM [...] ts do occur . Not Available [facility] ([facility]) [address] [facility], [place], [address], 04/27/2024 15:19:00 04/23/19 25 04/27/2024 IGP, APTIM A HPV, RFX 16/18 ,45 test methodology: Commen t This liqui d based ThinP rep(R ) pap test was scree mayra with the use of an image guide sylvie galloway. Not Available [facility] ([facility]) [address] [facility], [place], [address], 04/27/2024 15:19:00 04/23/19 25 04/27/2024 IGP, APTIM A HPV, RFX 16/18 ,45 HPV genotype reflex Commen t Crite gloria not met, HPV Genot ype not perfo rmed. Not Available [facility] ([facility]) [address] [facility], [place], [address], 04/27/2024 15:19:00 10/21/19 24 10/21/2023 XR, chest , 2 view No observ ation record ed. [address], [place], [address], 10/21/2023 13:55:32 10/21/19 24 10/21/2023 XR, chest , 2 view No observ ation record ed. [place] [id number] [facility] [address], [place], [address], 10/21/2023 13:55:23 10/21/19 24 10/21/2023 imagi ng/di agnos tic resul t No observ ation record ed. [email or web address], [place], [address], 10/22/2023 11:00:08 10/21/19 24 10/21/2023 XR, chest , 1 view No observ ation record ed. [address] [address], [place], [address], 10/22/2023 10:59:27 11/06/19 24 11/06/2023 PFT, compl ete No observ ation record ed. [address] [address], [place], [address], 11/07/2023 10:19:59 11/21/19 24 11/06/2023 6 minut e walk test* No observ ation record ed. [address] [address], [place], [address], 11/21/2023 13:03:43 12/05/19 24 12/05/2023 NM, bone scan, whole body No observ ation record ed. [address] [address], [place], [address], 12/09/2023 14:47:11 12/06/19 24 12/06/2023 XR, elbow , 3 or more view No observ ation record ed. [address] [address], [place], [address], 12/09/2023 15:07:03 12/16/19 24 12/16/2023 lab* No observ ation record ed. [email or web address] [address], [place], [address], 12/18/2023 08:01:33 12/16/19 24 12/16/2023 lab* No observ ation record ed. [address], [address], 12/18/2023 08:01:39 12/16/19 24 12/16/2023 lab* No observ ation record ed. [address], [address], 12/18/2023 08:01:46 12/17/19 24 12/16/2023 lab* No observ ation record ed. [address], [address], 12/18/2023 08:01:52 12/17/19 24 12/17/2023 lab* No observ ation record ed. [address], [address], 12/18/2023 08:01:58 12/18/19 24 12/18/2023 CT, elbow , w/o contr ast No observ ation record ed. [address], [address], 12/19/2023 11:32:05 12/20/19 24 12/20/2023 lab* No observ ation record ed. [address], [address], 12/24/2023 13:07:32 12/20/19 24 12/20/2023 lab* No observ ation record ed. [address], [address], 12/24/2023 13:07:25 12/20/19 24 12/20/2023 lab* No observ ation record ed. [address], [address], 12/24/2023 13:07:10 03/30/20 24 03/30/2024 CT, chest , w/ contr ast No observ ation record ed. [address], [address], 03/30/2024 17:40:32 04/01/19 25 04/01/2024 XR, chest , 2 view No observ ation record ed. [address], [address], 04/02/2024 08:12:04 04/01/19 25 04/01/2024 CT, chest , w/ contr ast No observ ation record ed. [place] [id number] [facility] [address], [place], [address], 04/02/2024 08:13:24 04/02/19 25 04/02/2024 trans -thor acic echoc ardio gram (TTE) (PROC ) No observ ation record ed. [place] [id number] [facility] [address], [place], [address], 04/06/2024 17:18:56 06/19/19 25 05/26/2024 sleep study , diagn ostic (PROC ) No observ ation record ed. [address], [place], [address], 06/18/2024 13:19:26 Result Notes None recorded. Problems Name Problem SNOMED Code Status Onset Date Resolution Date Notes Provider Name and Address Organization Details Recorded Time [employer] n 32891531 Active 2021 JARED LOCKHART Attn: Zeb rees,[address] [facility], [place], [address], [place] [facility] 2 15:26:15 Obesity 373224687 Active 2021 JARED LOCKHART Attn: Zeb rees,[address] [facility], [place], [address], [place] [facility] 2 15:26:17 Prediabetes 195893705 Active 2021 JARED LOCKHART Attn: Zeb g,[address] [facility], [place], [address], [place] [facility] 2 15:26:18 Smoker 76500526 Active 2021 JARED LOCKHART Attn: Zeb rees,[address] [facility], [place], [address], [place] [facility] 2 15:26:20 Chronic obstructive pulmonary disease 16570733 Active 2021 JARED LOCKHART Attn: Accountin g,[address] [place], [address], [place] [facility] 2 15:26:21 Hypercalcem ia 87774117 Active 2021 JARED LOCKHART Attn: Accountin g,[address] [place], [address], [place] [facility] 2 09:44:58 Neck pain 12577330 Active 2021 JARED LOCKHART Attn: Accountin g,[address] [place], [address], [place] [facility] 2 09:45:00 Anxiety 81019782 Active 2021 JARED LOCKHART Attn: Accountin g,[address] [place], [address], [place] [facility] 2 09:45:01 Thoracic back pain 095313076 Active 2021 JARED LOCKHART Attn: Accountin g,[address] [place], [address], [place] [facility] 2 09:45:02 Screening for malignant neoplasm of respiratory tract Active 2021 JARED LOCKHART Attn: Accountin g,[address] [place], [address], [place] [facility] 2 09:45:05 Dyspnea on exertion 46994171 Active 2022 JARED LOCKHART Attn: Accountin g,[address] [place], [address], [place] [facility] 3 13:24:31 Degeneratio n of lumbar interverteb ral disc 28439025 Active 2022 JARED LOCKHART Attn: Accountin g,[address] [place], [address], [place] [facility] 3 14:12:31 Degeneratio n of cervical interverteb ral disc 32295870 Active 2022 JARED LOCKHART Attn: Zeb rees,[address], [place], [address], [place] [facility] 3 09:37:49 Morbid obesity 238185796 Active 2022 JARED LOCKHART Attn: Donnaluis fernando rees,[address] [facility] [address], [place], [address], [place] [facility] 3 12:53:33 Sleep apnea 04246988 Active 2022 JARED LOCKHART Attn: Donnaluis fernando rees,[address] [facility], [place], [address], [place] [facility] 3 13:21:37 Non-small cell lung cancer 880352060 Active 2023 JARED LOCKHART Attn: Zeb rees,[address] [facility], [place], [address], [place] [facility] 4 16:00:44 Dyspnea 972631403 Active 2023 JARED LOCKHART Attn: Donnaluis fernando rees,[address] [facility], [place], [address], [place] [facility] 4 13:10:35 Closed fracture of right elbow 5272477611579 9103 Active 2023 JARED LOCKHART Attn: Donnaluis fernando rees,[address] [facility], [place], [address], [place] [facility] 4 13:10:39 Problem Notes None recorded. Procedures Surgical History None recorded. Imaging Results Imaging Date Name Status LastModified by Organization Details LastModified Time 10/21/2023 XR, chest, 2 view completed [address], [place], [address], 10/21/2023 13:55:32 10/21/2023 XR, chest, 2 view completed [address], [place], [address], 10/21/2023 13:55:23 10/21/2023 imaging/diagnostic result completed [address], [place], [address], 10/22/2023 11:00:08 10/21/2023 XR, chest, 1 view completed [address], [place], [address], 10/22/2023 10:59:27 11/06/2023 PFT, complete completed [address] [address], [place], [address], 11/07/2023 10:19:59 11/06/2023 6 minute walk test* completed [address] [address], [place], [address], 11/21/2023 13:03:43 12/05/2023 NM, bone scan, whole body completed [address] [address], [place], [address], 12/09/2023 14:47:11 12/06/2023 XR, elbow, 3 or more view completed [address] [address], [place], [address], 12/09/2023 15:07:03 12/16/2023 lab* completed [address] [address], [place], [address], 12/18/2023 08:01:33 12/16/2023 lab* completed [address], [address], 12/18/2023 08:01:39 12/16/2023 lab* completed [address] [place], [address], 12/18/2023 08:01:46 12/16/2023 lab* completed [address] [address], [place], [address], 12/18/2023 08:01:52 12/17/2023 lab* completed [address] [address], [place], [address], 12/18/2023 08:01:58 12/18/2023 CT, elbow, w/o contrast completed [address] [address], [place], [address], 12/19/2023 11:32:05 12/20/2023 lab* completed [address] [address], [place], [address], 12/24/2023 13:07:32 12/20/2023 lab* completed [address] [address], [place], [address], 12/24/2023 13:07:25 12/20/2023 lab* completed [address] [address], [place], [address], 12/24/2023 13:07:10 03/30/2024 CT, chest, w/ contrast completed [place] [address], [place], [address], 03/30/2024 17:40:32 04/01/2024 XR, chest, 2 view completed [address], [address], 04/02/2024 08:12:04 04/01/2024 CT, chest, w/ contrast completed [address], [address], 04/02/2024 08:13:24 04/02/2024 trans-thoracic echocardiogram (TTE) (PROC) completed [address], [place], [address], 04/06/2024 17:18:56 05/26/2024 sleep study, diagnostic (PROC) completed [place] [address] [facility] [address], [place], [address], 06/18/2024 13:19:26 Procedure Notes None recorded. Medical Equipment None Reported. Allergies Allergen ID Allergen Name Allergen Category Reaction Reaction Severity Criticality Documentation Date Start Date Code Code System Note Provider Name and Address Organization Details Recorded Time 553167 Zoloft medicatio n rash Not available Not available 04/22/2018 47303 RxNorm Not Available Not Available Not Available [...] Available TRUEplus Pen Needle 31 gauge x 06/14 USE TO INJECT VICTOZA EVERY DAY active [...] (8 mg/3 mL) subcutaneou s pen injector 2024 active Not Available Not Available Not [...] Organization Details Last Updated DateTime 152.4 cm 42.2 kg/m2 65496.9 5 g 74 /min 94 % 94 % 139 mm[Hg] 80 mm[Hg] Idalia Guillermo MA [facility] 4 14:01:50 Date Recorded Body height Body mass index (BMI) Body weight Oxygen saturation Oxygen saturation in Arterial blood by Pulse oximetry Heart rate Respiratory rate Systolic blood pressure Diastolic blood pressure Provider Name and Address Organization Details Last Updated DateTime 152.4 cm 42 kg/m2 92752.3 6 g 95 % 95 % 99 /min 20 /min 126 mm[Hg] 88 mm[Hg] Ember Long MA [facility] 17:06:04 Date Recorded Body height Body mass index (BMI) Body weight Heart rate Provider Name and Address Organization Details Last Updated DateTime 12/16/2023 152.4 cm 40.8 kg/m2 98565.81 g 64 /min Idalia Guillermo MA [facility] 12/16/2023 12:39:38 Date Recorded Oxygen saturation Oxygen saturation in Arterial blood by Pulse oximetry Provider Name and Address Organization Details Last Updated DateTime 12/16/2023 77 % 77 % JARED LOCKHART Attn: Accounting, [place], [address], [facility] 12/16/2023 13:07:02 Date Recorded Body height Body mass index (BMI) Body weight Oxygen saturation Oxygen saturation in Arterial blood by Pulse oximetry Systolic blood pressure Diastolic blood pressure Provider Name and Address Organization Details Last Updated DateTime 152.4 cm 41.3 kg/m2 31952.3 9 g 98 % 98 % 105 mm[Hg] 73 mm[Hg] Idalia Guillermo MA [facility] 14:01:51 Date Recorded Heart rate Provider Name an d Address Organization Details Last Updated DateTime 01/13/2024 60 /min Ora LOCKHART Attn: Accounting,[address] [place], [address], [facility] 01/13/2024 14:13:18 Date Recorded Body height Body mass index (BMI) Body weight Provider Name and Address Organization Details Last Updated DateTime 04/23/2024 152.4 cm 40.2 kg/m2 95196.03 g Idalia Guillermo [place] [facility] 04/23/2024 13:59:49 Date Recorded Heart rate Systolic blood pressure Diastolic blood pressure Provider Name and Address Organization Details Last Updated DateTime 04/23/2024 103 /min 133 mm[Hg] 87 mm[Hg] JARED LOCKHART Attn: Accounting,[address] [facility], [place], [address], [place] [facility] 04/23/2024 14:24:55 Social History Question Answer Notes LastModified by Organizat ion Details LastModified Time Tobacco Smoking Status Former Smoker quit 2023 JARED LOCKHART Attn: Accounting,[address] [facility], [place], [address], [facility] - [facility] 01/13/2024 14:04:02 What Is Your Level Of Alcohol Consumption? Occasional Information not available 06/15/2019 What Is Your Level Of Caffeine Consumption? None Information not available 06/15/2019 How Much Tobacco Do You Chew? None Information not available 06/15/2019 In The 14 Days Before Symptom Onset, Have You Had Close Contact With A Laboratory-confir med COVID-19 While That Case Was Ill? No [email or web address] Information not available 01/21/2020 In The 14 Days Before Symptom Onset, Have You Had Close Contact With A Person Who Is Under Investigation For COVID-19 While That Person Was Ill? No [email or web address] Information not available 01/21/2020 Have You Been To An Area Known To Be High Risk For COVID-19? No [email or web address] Information not available 01/21/2020 What Type Of Diet Are You Following? REGULAR [email or web address] Information not available 01/21/2020 Which Illicit Or Recreational Drugs Have You Used? None Information not available 06/15/2019 Do You Or Have You Ever Used E-cigarettes Or Vape? Never Used Electronic Cigarettes Information not available 06/15/2019 Education 12 [email or web address] Information no t available 01/21/2020 What Is Your Occupation? [employer] [email or web address] Information not available 01/21/2020 Are There Any Guns Present In Your Home? No [email or web address] Information not available 01/21/2020 Marital Status [email or web address] Informatio n not available 01/21/2020 What Was The Date Of Your Most Recent Tobacco Screening? 04/23/2024 Information not available 04/23/2024 Performs Monthly Self-breast Exam? Yes Information no t available 01/21/2020 Seat Belts Used Routinely Yes Information not available 01/21/2020 Smoke Alarm In Home Yes [email or web address] Information not available 01/21/2020 Do You Have [...] 06/15/2019 Do You Use Sunscreen Routinely? Yes [email or web address] Information not available 01/21/2020 Has Tobacco Cessation Counseling Been Provided? Yes [email or web address] Information not available 09/14/2018 On What Date Was Tobacco Cessation Counseling Provided? 11/18/2023 [email or web address] Information not available 11/18/2023 How Many Years Have You Smoked Tobacco? 21 Information not available 06/15/2019 Sex: Female Functional Status Question Answer Note LastModified by Organization D etails LastModified Time What is your exercise level? None Information not available 01/21/2020 Mental Status None [...] Eating Disorder N Anemia N Heart Attack ([place]) N Anxiety Disorder Y Diabetes N Muscle, [...] Time Influenza, recombinant, quadrivalent, PF 2 completed BARBARA [place]vey, [place] [facility] 06/06/2022 14:15:31 COVID-19 vaccine, vector-nr, rS-Ad26, PF, 0.5 mL 1 completed BAR[place]A [place] [facility] 06/06/2022 14:16:02 Tdap 8 completed BAR[place] [facility] 06/06/2022 14:16:19 Pneumococcal conjugate PCV20, polysaccharide [id number] conjugate, adjuvant, PF 3 completed JARED LOCKHART Attn: Accounting,[address] [place], [address], [place] [facility] 06/19/2022 13:21:40 Influenza, high-dose, trivalent, PF 4 completed JARED LOCKHART Attn: Accounting,[address] [place], [address], [place] [facility] 01/13/2024 14:31:27 Past Encounters Encounter ID Performer Location Encounter Start Date Encounter Closed Date Diagnosis/Indication Diagnosis SNOMED-CT Code Diagnosis ICD10 Code Diagnosis Note [id number] Melvina Reynolds MD [facility] [address] [place] [address] 04/22/2018 15:11:06 04/28/2018 09:29:29 Degenerative joint disease involving multiple joints 797596383 M15.9 Essential hypertension 81991251 I10 Standardiz ed adult depression screening tool completed 0468804967 25622 Z13.89 patient does not appear to be significan tly depressed. [id number] Melvina Reynolds MD [facility] [address] [place] [address] 09/05/2018 11:20:24 09/15/2018 09:59:27 Essential hypertension 50293462 I10 pt was also advised to quit smoking. Screening mammography 24 640194 Z12.31 Screening for malignant neoplasm of colon 205922763 Z12.11 Body mass index 30+ - obesity 300692725 Z68.39 discussed low fat, low carb diet, and encouraged exercise. Patient advised to limit salt and caffeine intake to maintain good blood pressure. [id number] Melvina Reynolds MD [facility] [address] [facility] [place] [address] 01/07/2019 15:10:07 01/12/2019 10:16:54 Herpes zoster 6372569 B02.9 [id number] Melvina Reynolds MD [facility] [address] [place] [address] 06/15/2019 15:10:54 06/29/2019 09:10:54 Moderate persistent asthma 558391869 J45.40 Essential hypertension 38537365 I10 pt was also advised to quit smoking. Moderate r ecurrent major depression 49455300 F33.1 Screening mammography 24 602302 Z12.31 Screening for malignant neoplasm of colon 428959604 Z12.11 [id number] Melvina Reynolds MD [facility] [address] [place] [address] 01/21/2020 16:01:28 01/22/2020 07:57:11 Pain in right knee 9956582910 06822 M25.561 may require knee surgery but would prefer to put it off for a while. Trying to give up smoking 793794922 Z72.0 encouraged her to stop smoking to decrease the risks of surgery [id number] JARED LOCKHART [facility] [address] [facility] [place] [place] [address] 11/03/2020 12:07:58 11/14/2020 07:22:30 Essential hypertension 98447032 I10 patient will come by office for [...] for BP is <140/90 Screening mammography 24 088419 Z12.31 Colonoscopy declined 548 6605249 20720 Z53.20 [id number] JARED LOCKHART [facility] [address] [place] [address] 06/21/2021 13:55:40 06/22/2021 08:33:21 Screening for malignant neoplasm of colon 599647965 Z12.11 patient has refused past colonoscop ies. denies family hx colon cancer, blood in stool, changes in BM. Agrees to cologuard. Chronic ob structive pulmonary disease 05305793 J44.9 Patient smoking 1/2 ppd. does not want to do PFT. She states she is controlled with current medication s. [place] not thought about quitting smoking. no one smokes at home with her. + for sob on walking 2-3 blocks. Decreased heart sounds and air movement on exam. - stop smoking, counseled today Smoker 01808939 F17.200 smoking 1/2 ppd Prediabetes 257883333 R7 3.03 5.9 last year. She eats [...] weight loss can be very helpful. Obesity 843830562 E66.9 Essential hypertension 66303504 I10 patient will come by office for BP check. Advised to check BP regularly with a goal of <140/90, if BP consistent ly >140/90, advised to contact clinic Discussed DASH diet Advised weight loss and diet is best way to control BP Advised 30 minutes of exercise minimum daily Advised tobacco, alcohol, caffeine all increase BP Advised goal for BP is <140/90 [id number] JARED AVINA [facility] [address] [place] [address] 07/28/2021 08:08:48 07/31/2021 09:38:36 Cough 61140058 R05.1 PVproducti ve cough, sore throat, headache [email or web address] alevevacci nated for COVID and flu, home [...] if not or on SSRI antidepres sants. [id number] JARED LOCKHART [facility] [address] [place] [address] 01/29/2022 13:54:21 01/30/2022 12:20:23 Screening for malignant neoplasm of colon 003044841 Z12.11 patient has refused past colonoscop ies. denies family hx colon cancer, blood in stool, changes in BM. Agrees to cologuard. Chronic ob structive pulmonary disease 22790812 J44.9 Patient smoking 1 ppd. does not want to do PFT. She states she is controlled with current medication s. [place] not thought about quitting smoking. no one smokes at home with her. + for sob on walking 2-3 blocks. Decreased heart sounds and air movement on exam. - stop smoking, counseled today Smoker 53130389 F17.200 smoking 1ppd Prediabetes 008043242 R7 3.03 5.9 last year. She eats [...] weight loss can be very helpful. Obesity 777455794 E66.9 Essential hypertension 87157931 I10 patient will come by office for [...] Screening for malignant neoplasm of respiratory tract 936422380 Z12.2 45 pack year smoking hx, smoking 1ppd currently. Sleep apnea 41421573 G47 .30 BMI 40.9, htn, snoring, apnea, days time somnolence , COPD.- sleep study Anxiety 23009453 F41.9 controlled . needs refill Neck pain 05030634 M54.2 cervical pain on palpation Thoracic back pain 69436 8004 M54.6 thoracic pain on palpation - [...] lying on the sofa. Screening mammography 24 308391 Z12.31 Hypercalcemia 75237555 E 83.52 followed by endo. saw them 12/2021 and has f/u in 3 months. [id number] JARED LOCKHART [facility] [address] [place] [address] 06/06/2022 13:54:26 06/06/2022 14:40:17 Chronic obstructive pulmonary disease 82500185 J44.9 Patient smoking 1 ppd. does not want to do PFT. She states she is controlled with current medication s. [place] not thought about quitting smoking. no one smokes at home with her. + for sob on walking 2-3 blocks. Decreased heart sounds and air movement on exam. - stop smoking, counseled today Administra tion of pneumococcal vaccine 03762341 Z23 given today Muscle weakness 75676375 M62.81 weakness going up stairs. at risk for falls. agrees to PT. Prediabetes 302071717 R7 3.03 5.9 last year. She eats [...] 5006 R06.09 declines PFTdecline s pulm referralde [facility] LDCT, I rather not know [id number] JARED LOCKHART [facility] [address] [place] [address] 07/04/2022 13:58:32 07/04/2022 15:10:06 Chronic obstructive pulmonary disease 87406492 J44.9 Patient smoking 1 ppd. does not want to do PFT. She states she is controlled with current medication s. [place] not thought about quitting smoking. no one smokes at home with her. + for sob on walking 2-3 blocks. Decreased heart sounds and air movement on exam. - stop smoking, counseled todayprevn ar 20.05/2022 Muscle weakness 71231003 M62.81 first PT session completed at [facility] an is 2x per week Prediabetes 267735352 R7 3.03 5.9 05/2022. She eats high [...] helpful. Dyspnea on exertion 6084 5006 R06.09 considerin g PFTdecline s pulm referralde nies LDCT, I rather not know Screening for malignant neoplasm of colon 568488448 Z12.11 patient has refused past colonoscop ies. denies family hx colon cancer, blood in stool, changes in BM. Agrees to cologuard. Smoker 73340750 F17.200 smoking 1ppd Obesity 080447119 E66.9 Essential hypertension 89600314 I10 134/76 Advised to check BP regularly with a goal of <140/90, if BP consistent ly >140/90, advised to contact clinicDisc ussed DASH dietAdvise d weight loss and diet is best way to control BPAdvised 30 minutes of exercise minimum dailyAdvis ed tobacco, alcohol, caffeine all increase BPAdvised goal for BP is <140/90 Screening for malignant neoplasm of respiratory tract 074314861 Z12.2 45 pack year smoking hx, smoking 1ppd currently. - declines LDCT Sleep apnea 20821315 G47 .30 BMI 40.9, htn, snoring, apnea, days time somnolence , COPD.- sleep study Anxiety 11689317 F41.9 controlled . needs refill Neck pain 74283181 M54.2 cervical pain on palpation Screening mammography 24 594139 Z12.31 missed appointmen twill reschedule Hypercalcemia 47120179 E 83.52 followed by endo. saw them 12/2021 and has f/u in 3 months. HIV screening 559215382 Z11.4 Degenerati on of cervical intervertebral disc 23145493 M50.30 01/2022: severe disc disease in neck (C5-6, C6-7). Mild degernativ e disease in thoracic spine. sending to ortho [id number] Eden Verdin CMA [facility] [address] [place] [place] [address] 07/05/2022 12:20:29 07/05/2022 12:51:23 [id number] JARED LOCKHART [facility] [address] [place] [address] 11/26/2022 12:19:34 11/27/2022 15:52:58 Chronic obstructive pulmonary disease 15067523 J44.9 Patient smoking 1 ppd. does not [...] counseled today- prevnar 20 given 05/2022 Prediabetes 412784069 R7 3.03 5.9 05/2022. She eats high [...] nies LDCT, I rather not know Smoker 83079389 F17.200 smoking 1ppddoes not want to quit Screening for malignant neoplasm of respiratory tract 268500539 Z12.2 45 pack year smoking hx, smoking 1ppd currently. - declines LDCT Screening mammography 24 960810 Z12.31 missed appointmen thas not reschedule dnew order Morbid obesity 347688548 E66.01 BMI 41.811 lb weight gain since 3Pati ent denies fam hx of thyroid cancer, personal hx pancreatit is. Medication side effects were reviewed with patient and include MIC, pancreatit is, nausea, vomiting, stomach upset. Patient was shown pen and was shown how to clean area, inject pen, and how often to administer . [id number] JARED LOCKHART [facility] [address] [place] [address] 06/03/2023 12:17:13 06/03/2023 13:00:52 Morbid obesity 536112295 E66.01 BMI 42. wants kati/nikolas epboundPat ient denies fam hx of thyroid cancer, personal hx pancreatit is. Medication side effects were reviewed with patient and include MIC, pancreatit is, nausea, vomiting, stomach upset. Patient was shown pen and was shown how to clean area, inject pen, and how often to administer . [id number] JARED LOCKHART [facility] [address] [place] [address] 2023 13:48:06 2023 14:30:21 Morbid obesity 280711470 E66.01 BMI 42.8 on epbound 2.5 and [...] and how often to administer . Adult [facility] th examination 280987159 Z00.00 here for labsincrea se zepboundst op sweetsdecl dilan all cancer screenings [id number] Ember Long MA [facility] [address] [place] [address] 07/15/2023 15:14:51 07/15/2023 15:24:54 [id number] JARED LOCKHART [facility] [address] [place] [address] 11/18/2023 13:45:23 11/18/2023 16:05:52 Chronic obstructive pulmonary disease 38976434 J44.9 Patient smoking 1 ppd. needs refills [...] today- prevnar 20 given 05/2022 Morbid obesity 968357627 E66.01 BMI 42.2 on ozempic .5 mg and will increase today. she denies any side effects.no weight lossadvise d stop buying sweets for homeshe is given a list of nutrition goals for each day including protein and veggies servingssh e verbalizes understand ing that if she does not sustain enough protein she will lose muscle mass Non-small cell lung cancer 392369599 C34.90 newly dx adenocarci noma of lung. undergoing evaluation to have surgery v radiationf ollowing Dr Cash montejo smoking, trying to quitsurgeo n: Dr Roberson m: Dr Lr [id number] JARED AVINA [facility] [address] [place] [address] 12/05/2023 17:03:12 12/05/2023 17:19:57 Bursitis of olecranon of right elbow 6764336260 29485 M70.21 x1 wk, increased swelling and redness [...] ates that she has radiation appt at [place] tomorrow and will go to ED after appt [id number] JARED LOCKHART [facility] [address] [place] [address] 12/16/2023 12:34:09 12/16/2023 13:43:37 Closed fracture of right elbow 7080260026 3736872 S42.401K Right elbow pain 12/06/2023. xray shows soft tissue swelling posterior to the olecranon and proximal ulna (could be olecranon bursitis). small chronic nonuinted fracture with corticated margins at tip of coronoid process. Dyspnea 593759923 R06.00 02 stats 76% in office and c/o of worsening sob. need to r/o PE due to new lung cancer b COPD exacerbati on.sent to hospital, reluctant but agrees.did not accept ambulance ride. going to [place] in personal car.PEX: decreased breath sounds LLQ. no wheezing. decreased air movement on expiration all lung bases. b/l palms erythemato us. [id number] JARED LOCKHART [facility] [address] [place] [address] 01/13/2024 13:50:19 01/13/2024 14:37:53 Sleep apnea 64578815 G47.30 BMI 41.3, htn, snoring, apnea, days time somnolence , COPD.- sleep study Morbid obesity 989164921 E66.01 BMI 41.3 on ozempic 2 mg and will increase today. she denies any side effects.no weight lossadvise d stop buying sweets for homeshe is given a list of nutrition goals for each day including protein and veggies servingssh e verbalizes understand ing that if she does not sustain enough protein she will lose muscle mass Moderate p ersistent asthma 573755932 J45.40 refill Administra tion of influenza vaccine 10809839 Z23 [id number] JARED LOCKHART [facility] [address] [place] [address] 04/23/2024 13:40:32 04/23/2024 14:31:08 Gynecologic examination 98070158 Z01.419 Pap obtained, unable to visualize entire cervix due to pain/atrop hy. obtained pap. will call with results.CB E performedB reast education provided Screening mammography 24 419376 Z12.31 missed appointmen thas not reschedule dnew order Abnormal foot pulse 6943 7003 R09.89 toes appear purple, mildly decreased PT pulses, unable to feel pedal pulses. will send to vascularno longer smokes but is a long time smoker Morbid obesity 539545461 E66.01 BMI 40.2 on ozempic 2 mg [...] Concerns Section Related Observation LastModified by Organization Gallito salas LastModified Time None Recorded Concern Status LastModified by Organization Details LastModified Time None Recorded Advance Directives Directive None Recorded Payers Encounter Date Sequence Insurance Name Policy Number Policy Villegas Covered Member ID Villegas Member ID Guarantor Name 11/18/2023 1 [place] [facility] Sherri Ramirez [id number] Sherri Ramirez 12/05/2023 1 [place] [facility] Sherri Ramirez [id number] Sherri Ramirez 12/16/2023 1 [place]ri Ramirez [id number] Sherri Ramirez 12/16/2023 2 [place] WHEN MED[place]ARE [place] MEDICARE REPLACEMENT PRIMARY) Sherri Ramirez [id number] Sherri Ramirez 01/13/2024 1 [place] Ramirez [id number] Sherri Ramirez 01/13/2024 2 [place]PLAC[place]) Sherri Ramirez [id number] Sherri Ramirez 04/23/2024 1 [place] Ramirez [id number] Sherri Ramirez 04/23/2024 2 [employer] Sherri Ramirez [id number] Sherri Ramirez Notes Date Note Type Note [...] new inhaler. JARED LOCKHART Attn: Accounting[address] [place], [address], [facility] 11/18/2023 16:03:57 12/05/2023 text/html Pt [...] elbow constantly. JARED AVINA Attn: Accounting[address] [place], [address], [place] [facility] 12/10/2023 09:17:33 12/16/2023 text/html here for elbow [...] to hospital. JARED LOCKHART Attn: Accounting[address] [facility], [place], [address], [facility] 12/16/2023 13:12:39 01/13/2024 text/html here for ER [...] on xanax?? JARED LOCKHART Attn: Accounting[address] [facility], [place], [address], [place] [facility] 01/13/2024 14:32:30 04/23/2024 text/html here for pap LMP: menopauseLast Pap: long time ago, does not rememberLast mammogram: many years agoFam hx: paternal aunt with breast ca age 70. denies cervical, uterine, ovarian cancers JARED LOCKHART Attn: Accounting[address] [facility], [place], [address], [place] [facility] 04/23/2024 14:26:01 OBGyn Episode No OBEpisode recorded.
--- OUTSIDE RECORDS SUMMARY | 2024-06-30 08:25 | XMS_ITS | Clinical Summary ---
Author Organization [facility] Barbara Dunbar Address [address] [place] [address] Care Team Providers Care Textile Scrap Salvager Name Role Phone Unavailable Primary Care Provider [...] Encounters Date Type Department Care Team Description 06/17/2024 External Device Data STL ABSTRACTION Provider, Abstract 06/09/2024 External Device Data STL ABSTRACTION Provider, Abstract 06/09/2024 External Device Data STL ABSTRACTION Provider, Abstract 06/08/2024 External Device Data STL ABSTRACTION Provider, Abstract 06/06/2024 External Device Data STL ABSTRACTION Provider, Abstract 06/05/2024 External Device Data STL ABSTRACTION Provider, Abstract 06/03/2024 External Device Data STL ABSTRACTION Provider, Abstract 05/20/2024 External Device Data STL ABSTRACTION Provider, Abstract 04/22/2024 External Device Data STL ABSTRACTION Provider, Abstract 04/22/2024 External Device Data STL ABSTRACTION Provider, Abstract 04/21/2024 Chart Note [facility] Emergency Department [address] [id number] Toño Fields MD 04/14/2024 10:15 AM TYPEWRITER OPERATOR AUTOMATIC Office Visit [facility] Oncology and Hematology - [place] [address] [place] [address] Dakota Watkins MD Malignant neoplasm of upper lobe of left lung (CMS/HCC) (Primary Dx) 04/14/2024 External Device Data STL ABSTRACTION Provider, Abstract 04/08/2024 Orders Only [facility] Oncology and Hematology - [place] [address] [place] [address] Dakota Watkins MD 04/02/2024 Orders Only [facility] Oncology and Hematology - [place] [address] [place] [address] Dakota Watkins MD from Last 3 Months Family History Medical History Relation Name Comments No Known Problems Brother Heart Disease Father Diabetes Mother Heart Disease Mother Breast Cancer Paternal Aunt No Known Problems Sister Relation Name Status Comments Brother Alive Child Alive Father Mother Paternal Aunt Sister Alive Social History Tobacco Use Types Packs/Day Years Used Date Smoking Tobacco: Some Days Cigarettes 1 50.8 Started: 08/31/2023 Alcohol Use Standard Drinks/Week Comments [...] Comments Blood Pressure 80/49 04/14/2024 10:10 AM TYPEWRITER OPERATOR AUTOMATIC Pulse 85 04/14/2024 10:10 AM TYPEWRITER OPERATOR AUTOMATIC Temperature 36.5 C (97.7 F) 04/14/2024 10:10 AM TYPEWRITER OPERATOR AUTOMATIC Respiratory Rate 20 04/14/2024 10:10 AM TYPEWRITER OPERATOR AUTOMATIC Oxygen Saturation 91% 04/14/2024 10:10 AM TYPEWRITER OPERATOR AUTOMATIC Inhaled Oxygen Concentration - - Weight 93.4 kg (206 lb) 04/14/2024 10:10 AM TYPEWRITER OPERATOR AUTOMATIC Height 152.4 cm (5') 09/25/2023 1:33 PM CDT Body Mass Index 40.23 09/25/2023 1:33 PM CDT Plan of Treatment Upcoming Encounters Date Type Department Care Team (Late st Contact Info) Description 07/07/2024 10:00 AM CDT Office Visit [facility] Oncology and Hematology [facility] [address] [facility] [address] [place] [address] Dakota Watkins MD [address] [facility] [address] [place] [address] Health Maintenance Due Date Last Done Comments Pre-Diabetes and Diabetes Screening 1960 Traditional Medicare (ACO) A nnual Wellness Visit 1980 HPV/Cotest (21-29) 1982 PAP SMEAR 1982 CERVICAL CANCER SCREENING 07/10/1991 HPV/Cotest (30-65) 07/10/1991 PAP SMEAR 07/10/1991 BREAST CANCER SCREENING 2001 COLORECTAL SCREENING 2006 Colorectal Cancer Screening 2006 FIT-DNA Q 3 years 2006 FIT/FOBT Q 1 year 2006 Flex Sig/CT Colonography Q 5 years 2006 ZOSTER VACCINE (1 of 2) 07/10/2011 RSV VACCINE (60+ or ) (1 - Risk 60-74 years 1-dose series) 2021 DTAP/TDAP/TD VACCINES (2 - Td or Tdap) 08/31/2027 INFLUENZA VACCINE Completed 01/13/2024, 04/28/2021 Insurance MEDICAID [place] MED[place] PART A AND B [employer]
--- OUTSIDE RECORDS SUMMARY | 2024-06-30 08:25 | XMS_ITS | Clinical Summary ---
Author Organization [facility] Address [address] [facility] [place] [address] Care Team Providers Care Machine Set Up Operator Name Role Phone Unknown, Provider Primary Care Provider Unavaila ble Source Comments [facility] and [facility]ician Practices is amultiple site organization consisting of ambulatory clinics and hospital sitesin [place], [place], [place] and [place]. This disclosure is being madepursuant to the Care Everywhere program and may not contain all information available regarding this patient. Last updated 17.[facility] [place] Allergies Active Allergy Reactions Criticality Noted Date [...] to complete this topic MENINGOCOCCAL (Group B) VACC INE SHARED DECISION-MAKING Aged Out No longer eligibl e based on patient's age to complete this topic MENINGOCOCCAL GROUPS A/C/Y/W VACCINE Aged Out No longer eligible b ased on patient's age to complete this topic Care Teams Machine Set Up Operator Relationship Specialty Start Date End Date Unknown, Provider PCP - General 06/17/23
[2024-06-30 08:46] LABS: Estimated Glomerular Filt Rate > 60
== END 2024-06-30 08:19 | disposition home or self-care (01) ==
PROVIDERS: PCP Physician Assistant; Visit Provider Internal Medicine Hematology & Oncology
DX: C34.12 Malignant neoplasm of upper lobe, left bronchus or lung (principal); J86.9 Pyothorax without fistula
CPT/HCPCS: 71260; Q9967

== ENCOUNTER 2024-07-07 09:45 | Outpatient (CLI) | payer MEDICARE, OTHER, SELFPAY ==
[2024-07-07 10:02] LABS: Basophils Absolute Auto 0.1 K/mm3 (0.0-0.1); Basophils Percent Auto 0.7 % (0.2-1.2); Eosinophils Absolute Auto 0.4 K/mm3 (0-0.3); Eosinophils Percent Auto 4.7 % (0-4.4); Hematocrit 42.6 % (37.0-47.0); Hemoglobin 13.8 g/dL (12.0-15.0); Immature Granulocyte Absolute 0.04 K/mm3 (0.00-0.031); Immature Granulocyte Percent A 0.4 % (0-0.5); Lymphocytes Absolute Auto 2.57 K/mm3 (0.9-3.2); Lymphocytes Percent Auto 28.1 % (18.3-44.2); Mean Corpuscular HGB Conc 32.4 g/dl (32-36); Mean Corpuscular Hemoglobin 30.9 pg (26-34); Mean Corpuscular Volume 95.3 fl (80-100); Mean Platelet Volume 9.3 fl (7.4-10.4); Monocytes Absolute Auto 0.7 K/mm3 (0.1-0.6); Monocytes Percent Auto 7.4 % (2.6-8.5); Neutrophils Absolute Auto 5.4 K/mm3 (1.3-6.7); Neutrophils Percent Auto 58.7 % (45.5-73.1); Platelet Count Result 318 k/mm3 (150-375); Red Blood Count 4.47 M/mm3 (4.2-5.4); Red Cell Distribution Width 15.3 % (11.5-14.5); White Blood Count 9.1 K/mm3 (4.5-10.0)
[2024-07-07 10:04] LABS: Blood Urea Nitrogen 18 mg/dL (8-26); Carbon Dioxide 33 mmol/L (22-30); Chloride 98 mmol/L (98-109); Estimated Glomerular Filt Rate > 60; Glucose 80 mg/dL (70-105); Ionized Calcium (POC) 1.28 mmol/L (1.11-1.31); Potassium 4.1 mmol/L (3.5-4.9); Sodium 139 mmol/L (138-146)
--- OUTSIDE RECORDS SUMMARY | 2024-07-07 10:51 | XMS_ITS | Encounter Summary ---
Author Organization [facility] Address [address] [place] [address] Care Team Providers Care Stem Roller Operator Name Role Phone Unavailable Primary Care Provider Unavailabl e Reason for Referral * CT Scan (Routine) - Open Specialty Diagnoses / Procedures Referred By Ronnie t Referred To Contact Diagnoses Malignant neoplasm of upper lobe of left lung (CMS/HCC) Procedures CT CHEST W CONTRAST Dakota Watkins MD [address] [place] [address] Phone: tel: fax: [place] [address] Referral ID Status Reason Start Date Expiration Date V isits Requested Visits Authorized [id number] Open STL CTS 07/07/2024 08/07/2025 1 1 Encounter Details Date Type Department Care Team (Late st Contact Info) Description 07/07/2024 10:00 AM CDT Office Visit [facility] Oncology and Hematology [facility] [address] [facility] [address] [place] [address] Dakota Watkins MD [address] [place] [address] Malignant neoplasm of upper lobe of left lung (CMS/HCC) (Primary Dx) Social History Tobacco Use Types Packs/Day Years Used Date Smoking Tobacco: Former Cigarettes 1 50.7 0 08/31/2023 - 05/02/2024 Alcohol Use Standard Drinks/Week Comments Yes 0 [...] Sign Reading Time Taken Comments Blood Pressure 96/68 07/07/2024 10:07 AM CDT Pulse 85 07/07/2024 10:05 AM CDT Temperature 36.9 C (98.5 F) 07/07/2024 10:05 AM CDT Respiratory Rate 15 07/07/2024 10:05 AM CDT Oxygen Saturation 90% 07/07/2024 10:05 AM CDT Inhaled Oxygen Concentration - - Weight 92.4 kg (203 lb 9.6 oz) 07/07/2024 10:05 AM CDT Height - - Body Mass Index 39.76 09/25/2023 1:33 PM CDT documented in this encounter Plan of Treatment Upcoming Encounters Date Type Department Care Team (Late st Contact Info) Description 11/20/2024 10:15 AM CDT Office Visit [facility] Oncology and Hematology - [place] [address] [facility] [address] [place] [address] Dakota Watkins MD [address] [facility] [address] [place] [address] Scheduled Orders Name Type Priority Associated Diagnoses Orde r Schedule CBC WITH DIFFERENTIAL Lab Stat Malignant neoplasm of upper lobe of left lung (CMS/HCC) Expected: 10/27/2024, Expires: 07/07/2025 COMPREHENSIVE METABOLIC PANEL Lab Stat Malignant neoplasm of upper lobe of left lung (CMS/HCC) Expected: 10/27/2024, Expires: 07/07/2025 CT CHEST W CONTRAST Imaging Routine Malignant neoplasm of upper lobe of left lung (CMS/HCC) Expected: 11/06/2024, Expires: 07/07/2025 documented as of this encounter Visit Diagnoses Diagnosis Malignant neoplasm of upper lobe of left lung (CMS/HCC)- Primary documented in this encounter
--- OUTSIDE RECORDS SUMMARY | 2024-07-07 10:51 | XMS_ITS | Clinical Summary ---
Author Organization [facility] Address [address] [facility] [place] [address] Care Team Providers Care Investment Accountant Name Role Phone Unknown, Provider Primary Care Provider Unavaila ble Source Comments [facility]-owned [facility] and [facility]ician Practices is amultiple site organization consisting of ambulatory clinics and hospital sitesin [place], [place], [place] and [place]. This disclosure is being madepursuant to the Care Everywhere program and may not contain all information available regarding this patient. Last updated 17.[facility] Zmanda Allergies Active Allergy Reactions Criticality Noted Date [...] age to complete this topic Care Teams Investment Accountant Relationship Specialty Start Date End Date Unknown, Provider PCP - General 06/17/23
--- OUTSIDE RECORDS SUMMARY | 2024-07-07 10:51 | XMS_ITS | Data Portability ---
Author Organization [facility] Kassandra Mathews Address [address] [place] [address] Care Team Providers Care Health Professor Name Role Phone MARK CASEY Primary Care [...] 2024 025 [facility], [address] [facility], [address], [place], [address], 5 15:18:59 Referral vascular surgeon referral 2024 025 [email or web address] Ryan Oreilly MD, [address] [facility] , [address] [address], [place], [address], 5 10:21:00 orthopedic surgeon referral - Right elbow pain 12/06/2023. xray shows soft tissue swelling posterior to the olecranon and proximal ulna (could be olecranon bursitis). small chronic nonuinted fracture with corticated margins at tip of coronoid process. 2023 024 LAYNE [place], [address] [facility], [address], [place], [address], 4 11:05:21 Procedures polysomnogr aphy, split night (PROC) [address], [facility] [facility] [address], [place], [address], 4 08:02:56 Surgeries None recorded. Imaging MAMMO, screening, bilateral [address] (Imaging), [address] [facility] [address], [place], [address], 5 08:14:40 Medication Orders Ozempic 2 mg/dose (8 mg/3 mL) subcutaneou s pen injector 2023 024 [id number], [address] [facility], [place], [place], [id number], 4 14:32:00 albuterol sulfate HFA 90 mcg/actuati on aerosol inhaler 2023 024 [place] [facility][id number], [address] [facility], [place], [place], [id number], 4 14:33:34 Ozempic 1 mg/dose (4 mg/3 mL) subcutaneou s pen injector 2023 024 [id number], [address] [facility], [place], [place], [id number], 4 16:08:18 Spiriva Respimat 2.5 mcg/actuati on solution for inhalation 2023 024 [facility] #[id number], [address] [facility], [place], [place], [id number], 4 14:31:00 Patient TargetsNo targets recorded. Patient Instructions Encounter Date Encounter Id Patient Instructions Last Modified By Organization Details Last Modified Time 04/23/2024 [id number] A healthy lifestyle: care instructions Not available [...] at tip of coronoid process. Referring Physician: aMrk Casey Fish Filleter, Encounter Date: 12/16/2023 Vascular Surgeon Referral fo r Abnormal foot pulse Referring Physician: Mark Casey Fish Filleter, Encounter Date: 04/23/2024 Results Created Date Observation Date Name Description Value Unit Range Abnormal Flag Note LastModifiedBy Organization Detail LastModifiedTime 04/23/1904/23/2024 IGP,A PTIMA HPV,A GE GDLN age gdln acog testing 30-65 Not Available [facility] ([facility] [place] [facility] [address] [facility], [place], [address], 04/27/2024 15:18:59 04/23/1904/25/2024 IGP, APTIM A HPV, RFX 16/18 ,45 HPV aptima Negati ve negati ve This nucle ic acid ampli ficat ion test detec ts fourt een high- risk HPV types (16,1 8,31, 33,35 ,39,4 5,51, 52,56 ,58,5 9,66, 68) witho ut diffe renti ation . Not Available [facility] ([facility] [place] [place] [facility] [address] [facility], [place], [address], 04/27/2024 15:19:00 04/23/19 25 04/27/2024 IGP, APTIM A HPV, RFX 16/18 ,45 diagnosis: Commen t NEGAT ANANDA FOR INTRA EPITH ELIAL LESIO N OR MALDANIEL PUCKETT . Not Available [facility] ([facility] [place] [place] [facility]) [address] [place], [address], 04/27/2024 15:19:00 04/23/19 25 04/27/2024 IGP, APTIM A HPV, RFX 16/18 ,45 specimen adequacy: Watson hummel Satis facto ry for evalu ation . Endoc ervic al and/o r squam ous metap lasti c cells (endo cervi marie compo nent) are prese nt. Not Available [facility] ([facility] [place] [place] [facility]) [address] [place], [address], 04/27/2024 15:19:00 04/23/19 25 04/27/2024 IGP, APTIM A HPV, RFX 16/18 ,45 clinician provided ICD10: Watson hummel Z01.4 19 Not Available [facility] ([facility] [place] [place] [facility]) [address] [place], [address], 04/27/2024 15:19:00 04/23/19 25 04/27/2024 IGP, APTIM A HPV, RFX 16/18 ,45 performed by: Watson moreno, Cytoestephanie hummel (ASCP ) Not Available [facility] ([facility] [place] [place] [facility]) [address] [place], [address], 04/27/2024 15:19:00 04/23/19 25 04/27/2024 IGP, APTIM A HPV, RFX 16/18 ,45 . . Not Available [facility] ([facility] [place] [place] [facility]) [address] [place], [address], 04/27/2024 15:19:00 04/23/19 25 04/27/2024 IGP, APTIM [...] ts do occur . Not Available [facility] ([facility] [place] [place] [facility] [address] [facility], [place], [address], 04/27/2024 15:19:00 04/23/19 25 04/27/2024 IGP, APTIM A HPV, RFX 16/18 ,45 test methodology: Commen t This liqui d based ThinP rep(R ) pap test was scree mayra with the use of an image guide sylvie galloway. Not Available [facility] ([facility] [place] [place] [facility]) [address] [facility], [place], [address], 04/27/2024 15:19:00 04/23/19 25 04/27/2024 IGP, APTIM A HPV, RFX 16/18 ,45 HPV genotype reflex Commen t Crite gloria not met, HPV Genot ype not perfo rmed. Not Available [facility] ([facility] [place] [place] [facility]) [address] [facility], [place], [address], 04/27/2024 15:19:00 10/21/19 24 10/21/2023 XR, chest , 2 view No observ ation record ed. [address], [place], [address], 10/21/2023 13:55:32 10/21/19 24 10/21/2023 XR, chest , 2 view No observ ation record ed. [id number] [facility] [address], [place], [address], 10/21/2023 13:55:23 10/21/19 24 10/21/2023 imagi ng/di agnos tic resul t No observ ation record ed. [email or web address], [place], [address], 10/22/2023 11:00:08 10/21/19 24 10/21/2023 XR, chest , 1 view No observ ation record ed. [address] [address], [place], [address], 10/22/2023 10:59:27 11/06/19 24 11/06/2023 PFT, compl ete No observ ation record ed. [address] [address], [place], [address], 11/07/2023 10:19:59 11/21/19 24 11/06/2023 6 minut e walk test* No observ ation record ed. [address] [address], [place], [address], 11/21/2023 13:03:43 12/05/19 24 12/05/2023 NM, bone scan, whole body No observ ation record ed. [address] [address], [place], [address], 12/09/2023 14:47:11 12/06/19 24 12/06/2023 XR, elbow , 3 or more view No observ ation record ed. [address] [address], [place], [address], 12/09/2023 15:07:03 12/16/19 24 12/16/2023 lab* No observ ation record ed. [email or web address] [address], [place], [address], 12/18/2023 08:01:33 12/16/19 24 12/16/2023 lab* No observ ation record ed. [address], [address], 12/18/2023 08:01:39 12/16/19 24 12/16/2023 lab* No observ ation record ed. [address], [address], 12/18/2023 08:01:46 12/17/19 24 12/16/2023 lab* No observ ation record ed. [address], [address], 12/18/2023 08:01:52 12/17/19 24 12/17/2023 lab* No observ ation record ed. [address], [address], 12/18/2023 08:01:58 12/18/19 24 12/18/2023 CT, elbow , w/o contr ast No observ ation record ed. [address], [address], 12/19/2023 11:32:05 12/20/19 24 12/20/2023 lab* No observ ation record ed. [address], [address], 12/24/2023 13:07:32 12/20/19 24 12/20/2023 lab* No observ ation record ed. [address], [address], 12/24/2023 13:07:25 12/20/19 24 12/20/2023 lab* No observ ation record ed. [address], [address], 12/24/2023 13:07:10 03/30/20 24 03/30/2024 CT, chest , w/ contr ast No observ ation record ed. [address], [address], 03/30/2024 17:40:32 04/01/19 25 04/01/2024 XR, chest , 2 view No observ ation record ed. [address], [address], 04/02/2024 08:12:04 04/01/19 25 04/01/2024 CT, chest , w/ contr ast No observ ation record ed. [address], [place], [address], 04/02/2024 08:13:24 04/02/19 25 04/02/2024 trans -thor acic echoc ardio gram (TTE) (PROC ) No observ ation record ed. [address], [place], [address], 04/06/2024 17:18:56 06/19/19 25 05/26/2024 sleep study , diagn ostic (PROC ) No observ ation record ed. [address], [place], [address], 06/18/2024 13:19:26 07/01/19 25 06/30/2024 CT, angio gram, chest , w/ contr ast No observ ation record ed. [address], [place], [address], 07/01/2024 15:14:49 Result Notes None recorded. Problems Name Problem SNOMED Code Status Onset Date Resolution Date Notes Provider Name and Address Organization Details Recorded Time Essential hypertensio n 54394422 Active 2021 JARED LOCKHART Attn: Zeb rees,[address] [facility], [place], [address], [place] 15:26:15 Obesity 481118656 Active 2021 JARED LOCKHART Attn: Zeb rees,[address] [facility], [place], [address], [place] 15:26:17 Prediabetes 285201200 Active 2021 JARED LOCKHART Attn: Zeb rees,[address] [facility], [place], [address], [place] [facility] 2 15:26:18 Smoker 97446404 Active 2021 JARED LOCKHART Attn: Donnaluis fernando rees,[address] [facility], [place], [address], [place] [facility] 2 15:26:20 Chronic obstructive pulmonary disease 25794578 Active 2021 JARED LOCKHART Attn: Zeb negrita,[address] [facility], [place], [address], [place] [facility] 2 15:26:21 Hypercalcem ia 87728046 Active 2021 JARED LOCKHART Attn: Zeb negrita,[address] [facility], [place], [address], [place] [facility] 2 09:44:58 Neck pain 76634701 Active 2021 JARED LOCKHART Attn: Zeb rees,[address] [facility], [place], [address], [place] [facility] 2 09:45:00 Anxiety 63969567 Active 2021 JARED LOCKHART Attn: Zeb negrita,[address] [facility], [place], [address], [place] [facility] 2 09:45:01 Thoracic back pain 177692957 Active 2021 JARED LOCKHART Attn: Zeb rees,[address] [facility], [place], [address], [place] [facility] 2 09:45:02 Screening for malignant neoplasm of respiratory tract Active 2021 JARED LOCKHART Attn: Zeb rees,[address] [place], [address], [place] [facility] 2 09:45:05 Dyspnea on exertion 71567563 Active 2022 JARED LOCKHART Attn: Zeb rees,[address] [place], [address], [place] [facility] 3 13:24:31 Degeneratio n of lumbar interverteb ral disc 43299343 Active 2022 JARED LOCKHART Attn: Accountluis fernando g,[address], [place], [address], [place] [facility] 3 14:12:31 Degeneratio n of cervical interverteb ral disc 11076980 Active 2022 JARED LOCKHART Attn: Accountluis fernando g,[address], [place], [address], [place] [facility] 3 09:37:49 Morbid obesity 700227840 Active 2022 JARED LOCKHART Attn: Accountluis fernando g,[address], [place], [address], [place] [facility] 3 12:53:33 Sleep apnea 67807438 Active 2022 JARED LOCKHART Attn: Accountluis fernando g,[address], [place], [address], [place] [facility] 3 13:21:37 Non-small cell lung cancer 079315892 Active 2023 JARED LOCKHART Attn: Accountluis fernando g,[address] [facility], [place], [address], [place] [facility] 4 16:00:44 Dyspnea 624579806 Active 2023 JARED LOCKHART Attn: Accountluis fernando g,[address] [facility] [address], [place], [address], [place] [facility] 4 13:10:35 Closed fracture of right elbow 6232294537806 9103 Active 2023 JARED LOCKHART Attn: Accountluis fernando g,[address], [place], [address], [place] [facility] 4 13:10:39 Problem Notes None recorded. Procedures Surgical History None recorded. Imaging Results Imaging Date Name Status LastModified by Organization Details LastModified Time 10/21/2023 XR, chest, 2 view completed [address] [address], [place], [address], 10/21/2023 13:55:32 10/21/2023 XR, chest, 2 view completed [address] [address], [place], [address], 10/21/2023 13:55:23 10/21/2023 imaging/diagnostic result completed [address] [address], [place], [address], 10/22/2023 11:00:08 10/21/2023 XR, chest, 1 view completed [address] [address], [place], [address], 10/22/2023 10:59:27 11/06/2023 PFT, complete completed [address], [address], 11/07/2023 10:19:59 11/06/2023 6 minute walk test* completed [address] [address], [place], [address], 11/21/2023 13:03:43 12/05/2023 NM, bone scan, whole body completed [address], [address], 12/09/2023 14:47:11 12/06/2023 XR, elbow, 3 or more view completed [address], [address], 12/09/2023 15:07:03 12/16/2023 lab* completed [address], [address], 12/18/2023 08:01:33 12/16/2023 lab* completed [address] [address], [place], [address], 12/18/2023 08:01:39 12/16/2023 lab* completed [address], [place], [address], 12/18/2023 08:01:46 12/16/2023 lab* completed [address], [place], [address], 12/18/2023 08:01:52 12/17/2023 lab* completed [address] [address], [place], [address], 12/18/2023 08:01:58 12/18/2023 CT, elbow, w/o contrast completed [address] [address], [place], [address], 12/19/2023 11:32:05 12/20/2023 lab* completed [address] [address], [place], [address], 12/24/2023 13:07:32 12/20/2023 lab* completed [address] [address], [place], [address], 12/24/2023 13:07:25 12/20/2023 lab* completed [address] [address], [place], [address], 12/24/2023 13:07:10 03/30/2024 CT, chest, w/ contrast completed [address] [address], [place], [address], 03/30/2024 17:40:32 04/01/2024 XR, chest, 2 view completed [address] [place] [address], [address], 04/02/2024 08:12:04 04/01/2024 CT, chest, w/ contrast completed [address], [address], 04/02/2024 08:13:24 04/02/2024 trans-thoracic echocardiogram (TTE) (PROC) completed [address], [address], 04/06/2024 17:18:56 05/26/2024 sleep study, diagnostic (PROC) completed [address], [address], 06/18/2024 13:19:26 06/30/2024 CT, angiogram, chest, w/ contrast completed [address], [address], 07/01/2024 15:14:49 Procedure Notes None recorded. Medical Equipment None Reported. Allergies Allergen ID Allergen Name Allergen Category Reaction Reaction Severity Criticality Documentation Date Start Date Code Code System Note Provider Name and Address Organization Details Recorded Time 634708 Zoloft medicatio n rash Not available Not available 04/22/2018 02420 RxNorm Not Available Not Available Not Available [...] Not Available Not Avai lable amoxicillin 875 mg-alen galloway clavulanate 125 mg tablet 01/12 completed Not [...] Updated DateTime 4 152.4 cm 42.2 kg/m2 29266.9 5 g 74 /min 94 % 94 % 139 mm[Hg] 80 mm[Hg] Idalia Guillermo MA [facility] 4 14:01:50 Date Recorded Body height Body mass index (BMI) Body weight Oxygen saturation Oxygen saturation in Arterial blood by Pulse oximetry Heart rate Respiratory rate Systolic blood pressure Diastolic blood pressure Provider Name and Address Organization Details Last Updated DateTime 4 152.4 cm 42 kg/m2 77379.3 6 g 95 % 95 % 99 /min 20 /min 126 mm[Hg] 88 mm[Hg] Ember Long MA [facility] 4 17:06:04 Date Recorded Body height Body mass index (BMI) Body weight Heart rate Provider Name and Address Organization Details Last Updated DateTime 12/16/2023 152.4 cm 40.8 kg/m2 26363.81 g 64 /min Idalia Guillermo MA [facility] 12/16/2023 12:39:38 Date Recorded Oxygen saturation Oxygen saturation in Arterial blood by Pulse oximetry Provider Name and Address Organization Details Last Updated DateTime 12/16/2023 77 % 77 % JARED LOCKHART Attn: Accounting,[address] [place], [address], [facility] 12/16/2023 13:07:02 Date Recorded Body height Body mass index (BMI) Body weight Oxygen saturation Oxygen saturation in Arterial blood by Pulse oximetry Systolic blood pressure Diastolic blood pressure Provider Name and Address Organization Details Last Updated DateTime 4 152.4 cm 41.3 kg/m2 95724.3 9 g 98 % 98 % 105 mm[Hg] 73 mm[Hg] Idalia Guillermo MA [facility] 14:01:51 Date Recorded Heart rate Provider Name an d Address Organization Details Last Updated DateTime 01/13/2024 60 /min Ora LOCKHART Attn: Accounting,[address] [place], [address], [facility] 01/13/2024 14:13:18 Date Recorded Body height Body mass index (BMI) Body weight Provider Name and Address Organization Details Last Updated DateTime 04/23/2024 152.4 cm 40.2 kg/m2 79728.03 g Idalia Guillermo MA [place] [facility] 04/23/2024 13:59:49 Date Recorded Heart rate Systolic blood pressure Diastolic blood pressure Provider Name and Address Organization Details Last Updated DateTime 04/23/2024 103 /min 133 mm[Hg] 87 mm[Hg] JARED LOCKHART Attn: Accounting[address] [place], [address], [place] - [facility] 04/23/2024 14:24:55 Social History Question Answer Notes LastModified by Organizat ion Details LastModified Time Tobacco Smoking Status Former Smoker quit 2023 JARED LOCKHART Attn: Accounting,[address] [place], [address] 01/13/2024 14:04:02 What Is Your Level Of Alcohol Consumption? Occasional Information not available 06/15/2019 What Is Your Level Of Caffeine Consumption? None Information not available 06/15/2019 How Much Tobacco Do You Chew? None Information not available 06/15/2019 In The 14 Days Before Symptom Onset, Have You Had Close Contact With A Laboratory-confir med COVID-19 While That Case Was Ill? No [email or web address] Information not available 01/21/2020 In The 14 Days Before Symptom Onset, Have You Had Close Contact With A Person Who Is Under Investigation For COVID-19 While That Person Was Ill? No Information not available 01/21/2020 Have You Been To An Area Known To Be High Risk For COVID-19? No [email or web address] Information not available 01/21/2020 What Type Of Diet Are You Following? REGULAR [email or web address] Information not available 01/21/2020 Which Illicit Or Recreational Drugs Have You Used? None Information not available 06/15/2019 Do You Or Have You Ever Used E-cigarettes Or Vape? Never Used Electronic Cigarettes Information not available 06/15/2019 Education 12 [email or web address] Information no t available 01/21/2020 What Is Your Occupation? [employer] [email or web address] Information not available 01/21/2020 Are There Any Guns Present In Your Home? No [email or web address] Information not available 01/21/2020 Marital Status [email or web address] Informatio n not available 01/21/2020 What Was The Date Of Your Most Recent Tobacco Screening? 04/23/2024 Information not available 04/23/2024 Performs Monthly Self-breast Exam? Yes Information no t available 01/21/2020 Seat Belts Used Routinely Yes [email or web address] Information not available 01/21/2020 Smoke Alarm In Home Yes [email or web address] Information not available 01/21/2020 Do You Have [...] 06/15/2019 Do You Use Sunscreen Routinely? Yes [email or web address] Information not available 01/21/2020 Has Tobacco Cessation Counseling Been Provided? Yes [email or web address] Information not available 09/14/2018 On What Date Was Tobacco Cessation Counseling Provided? 11/18/2023 [email or web address] Information not available 11/18/2023 How Many Years Have You Smoked Tobacco? 21 Information not available 06/15/2019 Sex: Female Functional Status Question Answer Note LastModified by Organization D etails LastModified Time What is your exercise level? None [email or web address] Information not available 01/21/2020 Mental Status None [...] Depression N COPD Y Blood Clots N Eating Disorder N Skin Problems N Anemia N Heart Attack ([place]) N Anxiety Disorder Y Diabetes N Muscle, [...] [facility] 06/06/2022 14:16:19 Pneumococcal conjugate PCV20, polysaccharide [id number] conjugate, adjuvant, PF 3 completed JARED LOCKHART Attn: Accounting,[address] [place], [address], [place] [facility] 06/19/2022 13:21:40 Influenza, high-dose, trivalent, PF 4 completed JARED LOCKHART Attn: Accounting,[address] [place], [address], [place] [facility] 01/13/2024 14:31:27 Past Encounters Encounter ID Performer Location Encounter Start Date Encounter Closed Date Diagnosis/Indication Diagnosis SNOMED-CT Code Diagnosis ICD10 Code Diagnosis Note [id number] Melvina Reynolds MD [facility] [address] [place] [address] 04/22/2018 15:11:06 04/28/2018 09:29:29 Degenerative joint disease involving multiple joints 006075497 M15.9 Essential hypertension 20836093 I10 Standardiz ed adult depression screening tool completed 3912959519 89827 Z13.89 patient does not appear to be significan tly depressed. [id number] Melvina Reynolds MD [facility] [address] [place] [address] 09/05/2018 11:20:24 09/15/2018 09:59:27 Essential hypertension 78843099 I10 pt was also advised to quit smoking. Screening mammography 24 682078 Z12.31 Screening for malignant neoplasm of colon 206634415 Z12.11 Body mass index 30+ - obesity 528530670 Z68.39 discussed low fat, low carb diet, and encouraged exercise. Patient advised to limit salt and caffeine intake to maintain good blood pressure. [id number] Melvina Reynolds MD [facility] [address] [place] [address] 01/07/2019 15:10:07 01/12/2019 10:16:54 Herpes zoster 6982294 B02.9 [id number] Melvina Reynolds MD [facility] [address] [place] [address] 06/15/2019 15:10:54 06/29/2019 09:10:54 Moderate persistent asthma 541041196 J45.40 Essential hypertension 97150465 I10 pt was also advised to quit smoking. Moderate r ecurrent major depression 24238581 F33.1 Screening mammography 24 084686 Z12.31 Screening for malignant neoplasm of colon 899895363 Z12.11 [id number] Melvina [place] MD [facility] [address] [place] [address] 01/21/2020 16:01:28 01/22/2020 07:57:11 Pain in right knee 9502703308 37468 M25.561 may require knee surgery but would prefer to put it off for a while. Trying to give up smoking 671227634 Z72.0 encouraged her to stop smoking to decrease the risks of surgery [id number] JARED LOCKHART [facility] [address] [place] [address] 11/03/2020 12:07:58 11/14/2020 07:22:30 Essential hypertension 52243563 I10 patient will come by office for [...] for BP is <140/90 Screening mammography 24 078422 Z12.31 Colonoscopy declined 613 4282410 38538 Z53.20 [id number] JARED LOCKHART [facility] [address] [place] [address] 06/21/2021 13:55:40 06/22/2021 08:33:21 Screening for malignant neoplasm of colon 329580049 Z12.11 patient has refused past colonoscop ies. denies family hx colon cancer, blood in stool, changes in BM. Agrees to cologuard. Chronic ob structive pulmonary disease 13957542 J44.9 Patient smoking 1/2 ppd. does not want to do PFT. She states she is controlled with current medication s. [place] not thought about quitting smoking. no one smokes at home with her. + for sob on walking 2-3 blocks. Decreased heart sounds and air movement on exam. - stop smoking, counseled today Smoker 08193521 F17.200 smoking 1/2 ppd Prediabetes 585783117 R7 3.03 5.9 last year. She eats [...] weight loss can be very helpful. Obesity 872319124 E66.9 Essential hypertension 39503216 I10 patient will come by office for BP check. Advised to check BP regularly with a goal of <140/90, if BP consistent ly >140/90, advised to contact clinic Discussed DASH diet Advised weight loss and diet is best way to control BP Advised 30 minutes of exercise minimum daily Advised tobacco, alcohol, caffeine all increase BP Advised goal for BP is <140/90 [id number] JARED AVINA [facility] [address] [place] [address] 07/28/2021 08:08:48 07/31/2021 09:38:36 Cough 22941557 R05.1 PVproducti ve cough, sore throat, headache l7xomyzs alevevacci nated for COVID and flu, home [...] if not or on SSRI antidepres sants. [id number] JARED LOCKHART [facility] [address] [place] [address] 01/29/2022 13:54:21 01/30/2022 12:20:23 Screening for malignant neoplasm of colon 952194523 Z12.11 patient has refused past colonoscop ies. denies family hx colon cancer, blood in stool, changes in BM. Agrees to cologuard. Chronic ob structive pulmonary disease 48741337 J44.9 Patient smoking 1 ppd. does not want to do PFT. She states she is controlled with current medication s. [place] not thought about quitting smoking. no one smokes at home with her. + for sob on walking 2-3 blocks. Decreased heart sounds and air movement on exam. - stop smoking, counseled today Smoker 05325244 F17.200 smoking 1ppd Prediabetes 517171663 R7 3.03 5.9 last year. She eats [...] weight loss can be very helpful. Obesity 293819319 E66.9 Essential hypertension 32755619 I10 patient will come by office for [...] Screening for malignant neoplasm of respiratory tract [id number] Z12.2 45 pack year smoking hx, smoking 1ppd currently. Sleep apnea 59468497 G47 .30 BMI 40.9, htn, snoring, apnea, days time somnolence , COPD.- sleep study Anxiety 68290510 F41.9 controlled . needs refill Neck pain 14495491 M54.2 cervical pain on palpation Thoracic back pain 43390 8004 M54.6 thoracic pain on palpation - [...] lying on the sofa. Screening mammography 24 288694 Z12.31 Hypercalcemia 51668180 E 83.52 followed by endo. saw them 12/2021 and has f/u in 3 months. [id number] JARED LOCKHART [facility] [address] [place] [address] 06/06/2022 13:54:26 06/06/2022 14:40:17 Chronic obstructive pulmonary disease 55605366 J44.9 Patient smoking 1 ppd. does not want to do PFT. She states she is controlled with current medication s. [place] not thought about quitting smoking. no one smokes at home with her. + for sob on walking 2-3 blocks. Decreased heart sounds and air movement on exam. - stop smoking, counseled today Administra tion of pneumococcal vaccine 25031667 Z23 given today Muscle weakness 86651449 M62.81 weakness going up stairs. at risk for falls. agrees to PT. Prediabetes 203044100 R7 3.03 5.9 last year. She eats [...] 5006 R06.09 declines PFTdecline s pulm referralde adolfo LDCT, I rather not know [id number] JARED LOCKHART [facility] [address] [place] [address] 07/04/2022 13:58:32 07/04/2022 15:10:06 Chronic obstructive pulmonary disease 80002845 J44.9 Patient smoking 1 ppd. does not want to do PFT. She states she is controlled with current medication s. [place] not thought about quitting smoking. no one smokes at home with her. + for sob on walking 2-3 blocks. Decreased heart sounds and air movement on exam. - stop smoking, counseled todayprevn ar 20.05/2022 Muscle weakness 93169748 M62.81 first PT session completed at [facility] an is 2x per week Prediabetes 004744765 R7 3.03 5.9 05/2022. She eats high [...] on exertion 6084 5006 R06.09 jermaine rees PFTdecline s pulm referralde rena LDCT, I rather not know Screening for malignant neoplasm of colon 766238244 Z12.11 patient has refused past colonoscop ies. denies family hx colon cancer, blood in stool, changes in BM. Agrees to cologuard. Smoker 33404642 F17.200 smoking 1ppd Obesity 970948496 E66.9 Essential hypertension 71763744 I10 134/76 Advised to check BP regularly with a goal of <140/90, if BP consistent ly >140/90, advised to contact clinicDisc ussed DASH dietAdvise d weight loss and diet is best way to control BPAdvised 30 minutes of exercise minimum dailyAdvis ed tobacco, alcohol, caffeine all increase BPAdvised goal for BP is <140/90 Screening for malignant neoplasm of respiratory tract 503458205 Z12.2 45 pack year smoking hx, smoking 1ppd currently. - declines LDCT Sleep apnea 08574281 G47 .30 BMI 40.9, htn, snoring, apnea, days time somnolence , COPD.- sleep study Anxiety 17275948 F41.9 controlled . needs refill Neck pain 25082269 M54.2 cervical pain on palpation Screening mammography 24 805437 Z12.31 missed appointmen twill reschedule Hypercalcemia 31371735 E 83.52 followed by endo. saw them 12/2021 and has f/u in 3 months. HIV screening 572813350 Z11.4 Degenerati on of cervical intervertebral disc 18060673 M50.30 01/2022: severe disc disease in neck (C5-6, C6-7). Mild degernativ e disease in thoracic spine. sending to ortho [id number] Eden Verdin [facility] [address] [place] [address] 07/05/2022 12:20:29 07/05/2022 12:51:23 [id number] JARED LOCKHART [facility] [address] [place] [address] 11/26/2022 12:19:34 11/27/2022 15:52:58 Chronic obstructive pulmonary disease 74659772 J44.9 Patient smoking 1 ppd. does not [...] counseled today- prevnar 20 given 05/2022 Prediabetes 018066338 R7 3.03 5.9 05/2022. She eats high [...] nies LDCT, I rather not know Smoker 98707612 F17.200 smoking 1ppddoes not want to quit Screening for malignant neoplasm of respiratory tract 356739020 Z12.2 45 pack year smoking hx, smoking 1ppd currently. - declines LDCT Screening mammography 24 539000 Z12.31 missed appointmen thas not reschedule dnew order Morbid obesity 685381047 E66.01 BMI 41.811 lb weight gain since 3Pati ent denies fam hx of thyroid cancer, personal hx pancreatit is. Medication side effects were reviewed with patient and include MIC, pancreatit is, nausea, vomiting, stomach upset. Patient was shown pen and was shown how to clean area, inject pen, and how often to administer . [id number] JARED LOCKHART [facility] [address] [place] [address] 06/03/2023 12:17:13 06/03/2023 13:00:52 Morbid obesity 966615192 E66.01 BMI 42. wants mounjaro/z epboundPat ient denies fam hx of thyroid cancer, personal hx pancreatit is. Medication side effects were reviewed with patient and include MIC, pancreatit is, nausea, vomiting, stomach upset. Patient was shown pen and was shown how to clean area, inject pen, and how often to administer . [id number] JARED LOCKHART [facility] [address] [place] [address] 2023 13:48:06 2023 14:30:21 Morbid obesity 573195820 E66.01 BMI 42.8 on epbound 2.5 and [...] to administer . Adult heal th examination 001841101 Z00.00 here for labsincrea se zepboundst op sweetsdecl dilan all cancer screenings [id number] Ember Long MA [facility] [address] [place] [address] 07/15/2023 15:14:51 07/15/2023 15:24:54 [id number] JARED LOCKHART [facility] [address] [place] [address] 11/18/2023 13:45:23 11/18/2023 16:05:52 Chronic obstructive pulmonary disease 76951343 J44.9 Patient smoking 1 ppd. needs refills [...] today- prevnar 20 given 05/2022 Morbid obesity 224968891 E66.01 BMI 42.2 on ozempic .5 mg and will increase today. she denies any side effects.no weight lossadvise d stop buying sweets for homeshe is given a list of nutrition goals for each day including protein and veggies servingssh e verbalizes understand ing that if she does not sustain enough protein she will lose muscle mass Non-small cell lung cancer 872773183 C34.90 newly dx adenocarci noma of lung. undergoing evaluation to have surgery v radiationf olomaring Dr Cash montejo smoking, trying to quitsurgeo n: Dr Roberson m: Dr Lr [id number] JARED AVINA [facility] [address] [place] [address] 12/05/2023 17:03:12 12/05/2023 17:19:57 Bursitis of olecranon of right elbow 9326875574 76392 M70.21 x1 wk, increased swelling and redness [...] ates that she has radiation appt at [place] tomorrow and will go to ED after appt [id number] JARED LOCKHART [facility] [address] [place] [address] 12/16/2023 12:34:09 12/16/2023 13:43:37 Closed fracture of right elbow [id number] 7767381 S42.401K Right elbow pain 12/06/2023. xray shows soft tissue swelling posterior to the olecranon and proximal ulna (could be olecranon bursitis). small chronic nonuinted fracture with corticated margins at tip of coronoid process. Dyspnea 804709274 R06.00 02 stats 76% in office and c/o of worsening sob. need to r/o PE due to new lung cancer b COPD exacerbati on.sent to hospital, reluctant but agrees.did not accept ambulance ride. going to [place] in personal car.PEX: decreased breath sounds LLQ. no wheezing. decreased air movement on expiration all lung bases. b/l palms erythemato us. [id number] JARED LOCKHART [facility] [address] [place] [address] 01/13/2024 13:50:19 01/13/2024 14:37:53 Sleep apnea 21615642 G47.30 BMI 41.3, htn, snoring, apnea, days time somnolence , COPD.- sleep study Morbid obesity 900959576 E66.01 BMI 41.3 on ozempic 2 mg and will increase today. she denies any side effects.no weight lossadvise d stop buying sweets for homeshe is given a list of nutrition goals for each day including protein and veggies servingssh e verbalizes understand ing that if she does not sustain enough protein she will lose muscle mass Moderate p ersistent asthma 697269914 J45.40 refill Administra tion of influenza vaccine 07146942 Z23 [id number] JARED LOCKHART [facility] [address] [place] [address] 04/23/2024 13:40:32 04/23/2024 14:31:08 Gynecologic examination 04333292 Z01.419 Pap obtained, unable to visualize entire cervix due to pain/atrop hy. obtained pap. will call with results.CB E performedB reast education provided Screening mammography 24 823053 Z12.31 missed appointmen thas not reschedule dnew order Abnormal foot pulse 6943 7003 R09.89 toes appear purple, mildly decreased PT pulses, unable to feel pedal pulses. will send to [facility] longer smokes but is a long time smoker Morbid obesity 911580316 E66.01 BMI 40.2 on ozempic 2 mg [...] [place] [employer] [facility] Sherri Ramirez [id number] Sherri Ramirez 12/05/2023 1 [place] [employer] Sherri Ramirez [id number] Sherri Ramirez 12/16/2023 1 [place] Sherri Shanon James [id number] Sherri Ramirez 12/16/2023 2 [place] WHEN [place] OR MEDIC[place] REPLACEMENT PRIMARY) Sherri Shanon James [id number] Sherri Ramirez 01/13/2024 1 [place] Sherri Shanon James [id number] Sherri Ramirez 01/13/2024 2 [place] REPLACEMENT [place]IMARY) Sherri Shanon James [id number] Sherri Ramirez 04/23/2024 1 [place] Sherri Shanon James [id number] Sherri Ramirez 04/23/2024 2 [employer] Sherri Ramirez [id number] Sherri Ramirez Notes Date Note Type Note [...] new inhaler. JARED LOCKHART Attn: [address] [place], [address], [facility] 11/18/2023 16:03:57 12/05/2023 text/html Pt [...] elbow constantly. JARED AVINA Attn: [address]ing[address] [facility], [place], [address], [facility] 12/10/2023 09:17:33 12/16/2023 text/html here for elbow [...] to hospital. JARED LOCKHART Attn: Accounting[address] [facility], [place], [address], [facility] 12/16/2023 13:12:39 01/13/2024 text/html here [...] rehab referral sent by pulm. needs sleep study.PRICK STITCHER lizet put her on xanax?? JARED LOCKHART Attn: [address]ing[address] [facility], [place], [address], [facility] 01/13/2024 14:32:30 04/23/2024 text/html here for pap LMP: menopauseLast Pap: long time ago, does not rememberLast mammogram: many years agoFam hx: paternal aunt with breast ca age 70. denies cervical, uterine, ovarian cancers JARED LOCKHART Attn: [address]ing[address] [place], [address], [facility] 04/23/2024 14:26:01 OBGyn Episode No OBEpisode recorded.
--- OUTSIDE RECORDS SUMMARY | 2024-07-07 10:51 | XMS_ITS | Clinical Summary ---
Author Organization [facility] Barbara Dunbar Address [address] [place] [address] Care Team Providers Care Airport Clerk Name Role Phone Unavailable Primary Care Provider [...] 3 hours before the scan. 5 Tablet Active Ozempic 0.25 mg or 0.5 mg (2 mg/3 mL) Pen Injector Inject 1 mg by subcutaneous injection every 7 days. Active tiotropium (SPIRIVA RESPIMAT) 2.5 mcg/actuation Mist Inhale 2 puffs every day by inhalation route. 4 Active Active Problems No known active problems Encounters Date Type Department Care Team Description 07/07/2024 10:00 AM CDT Office Visit [facility] Oncology and Hematology - [facility] [address] [place] [address] Dakota Watkins MD Malignant neoplasm of upper lobe of left lung (CMS/HCC) (Primary Dx) 06/30/2024 External Device Data STL ABSTRACTION Provider, Abstract 06/30/2024 Orders Only [facility] Oncology and Hematology [facility] [address] [place] [address] Dakota Watkins MD 06/17/2024 External Device Data STL ABSTRACTION Provider, [...] STL ABSTRACTION Provider, Abstract 04/21/2024 Chart Note [facility] Emergency Department [address] [address] Toño Fields MD 04/14/2024 10:15 AM INVESTMENT BANKING MANAGER Office Visit [facility] Oncology and Hematology [facility] [address] [place] [address] Dakota Watkins MD Malignant neoplasm of upper lobe of left lung (CMS/HCC) (Primary Dx) 04/14/2024 External Device Data STL ABSTRACTION Provider, Abstract 04/08/2024 Orders Only [facility] Oncology and Hematology [facility] [address] [place] [address] Dakota Watkins MD from Last 3 Months [...] 9.6 oz) 07/07/2024 10:05 AM CDT Height 152.4 cm (5') 09/25/2023 1:33 PM CDT Body Mass Index 39.76 09/25/2023 1:33 PM CDT Plan of Treatment Upcoming Encounters Date Type Department Care Team (Late st Contact Info) Description 11/20/2024 10:15 AM CDT Office Visit [facility] Oncology and Hematology [facility] [address] [facility] [address] [place] [address] Dakota Watkins MD [address] [facility] [address] [place] [address] Health Maintenance Due Date Last Done Comments Pre-Diabetes and Diabetes Screening 1960 Traditional Medicare (ACO) A nnual Wellness Visit 1980 HPV/Cotest (21-29) 1982 CERVICAL CANCER SCREENING 07/10/1991 HPV/Cotest (30-65) [...] Diagnosis Comments CT CHEST W CONTRAST Routine 06/30/2024 1:24 PM CDT from Last 3 Months Results * CT CHEST W CONTRAST (06/30/2024 1:24 PM CDT) Anatomical Region Laterality Modality Chest Computed Tomogra phy Dakota Watkins MD CT ORDERABLES Final Result from Last 3 Months Insurance MEDICAID [place] MEDICARE PART A AND B [employer]
[2024-07-07 12:15] LABS: Alanine Aminotransferase 15 U/L (6-35); Albumin Level 4.1 g/dL (3.5-5.1); Alkaline Phosphatase 129 U/L (38-126); Anion Gap 8 mmol/L (4-12); Aspartate Amino Transferase 21 U/L (14-36); Bilirubin,Total 0.3 mg/dL (0.2-1.3); Blood Urea Nitrogen 19 mg/dL (7-17); Calcium 9.8 mg/dL (8.4-10.2); Carbon Dioxide 33 mmol/L (22-30); Chloride 100 mmol/L (98-107); Estimated Glomerular Filt Rate > 60; Glucose 84 mg/dL (65-110); Potassium 4.2 mmol/L (3.4-5.0); Sodium 141 mmol/L (137-145)
== END 2024-07-07 09:46 | disposition home or self-care (01) ==
LOC: ANHLAB 09:52
PROVIDERS: PCP Physician Assistant; Visit Provider Internal Medicine Hematology & Oncology
DX: C34.12 Malignant neoplasm of upper lobe, left bronchus or lung (principal)
CPT/HCPCS: 36415; 80047; 80053; 85025

== ENCOUNTER 2024-10-19 13:54 | Emergency (ER) | payer MEDICARE, OTHER, SELFPAY ==
--- NOTE | 2024-10-19 13:58 | ED_ITS ---
HPI - Extremity Injury (Upper) General Chief Complaint: Extremity Problem,Nontraumatic Stated Complaint: swollen right elbow Time Seen by Provider: 10/19/24 14:03 Source: patient Mode of arrival: ambulatory Limitations: no limitations History of Present Illness HPI narrative: Sherri is a 64 year old female patient presenting to the clinic today with complaints of right elbow swelling x 2 days. Right elbow is red, erythemic, and swollen. No known injury. History of olecranon bursitis in the past. No fever, chills, or body aches. No history of MRSA in the past. History of COPD, obesity, hypertension, and tobacco abuse. Wears home O2 when needed. Related Data Home Medications ?Medication ?Instructions ?Recorded ?Confirmed ?Last Taken ?Type budesonide-formoterol HFA 160 2 puff inhalation BID 09/08/19 05/06/24 04/01/24 History mcg-4.5 mcg/actuation aerosol inhaler (Symbicort) losartan 100 mg tablet 100 mg PO DAILY 06/13/22 05/06/24 04/01/24 History metoprolol tartrate 50 mg tablet 50 mg PO BID 06/13/22 05/06/24 04/01/24 History nortriptyline 50 mg capsule 50 mg PO DAILY 06/13/22 05/06/24 04/01/24 History semaglutide 0.25 mg or 0.5 mg (2 1 mg subcut WEEKLY 10/15/23 05/06/24 03/27/24 History mg/3 mL) subcutaneous pen injector (Ozempic) Allergies Allergy/AdvReac Type Severity Reaction Status Date / Time sertraline Allergy Intermediate Itching Verified 10/19/24 14:03 Sulfa (Sulfonamide Allergy Unknown Unknown Verified 10/19/24 14:03 Antibiotics) Review of Systems Review of Systems: Pertinent positives per HPI. Patient denies any fever, chills, rash, headache, visual changes, dizziness, cough, runny nose, sore throat, shortness of breath, chest pain, palpitations, nausea, vomiting, diarrhea, constipation, abdominal pain, or any urinary issues. PMFSH Past Medical History Medical History Hypertension Right hand dominant COPD (chronic obstructive pulmonary disease) RAISSA (obstructive sleep apnea) Screening for hyperlipidemia Nodule of left lung Major depressive disorder, recurrent, unspecified Essential hypertension Asthma with COPD (chronic obstructive pulmonary disease) Anxiety disorder, unspecified Family History Family History Mother Diabetes mellitus Heart attack Hypertension Father Heart attack Hypertension Smoker Social History Social History Smoking packs per day: 1 Smoking cigarettes per day: 20.0 Years smoked: 40 Smoking pack-years: 40.00 Smoking status: Former smoker Tobacco type: cigarettes Smoking end date: 12/31/23 Alcohol intake: never Substance use: never Substance use type: does not use Do You Feel Safe in your Home?: Yes Lack of Transportation: No Lack of Food: Never True Current Housing: I Have Housing Concerned About Future Housing: No Difficulty Paying Gas/Electric Bills: No Difficulty Paying for Meds: No Currently Unemployed: No Education: High School Diploma/GED Difficulty w/ Childcare or Family Care: No Spiritual care concerns: No Comments At the time of my signature, I reviewed and agree with the nursing past medical, surgical, social, and family history. There is no relevant family history pertinent to the patient complaint. Exam 2 Narrative: General: Well-developed, well nourished, in no apparent distress Head: Normocephalic, atraumatic. Cardio: Regular rate and rhythm, s1 and s2 normal, no murmur appreciated. Resp: Clear to auscultation bilaterally, no rhonchi, rales, wheezing or rubs. Musculoskeletal: No deformity, redness, swelling, and erythema to the right elbow-olecranon bursitis, mild tender to palpation with fluctuant, grossly normal range of motion, muscle strength strong and equal, peripheral pulse strong, no edema, no cyanosis, normal gait and station Course Course Emergency Course: Portions of this record may have been created with voice recognition software. Level of Care: Express Care Visit Vital Signs Vital signs: Vital Signs Temperature 37.3 C 10/19/24 14:05 Pulse Rate 72 10/19/24 14:05 Respiratory Rate 20 10/19/24 14:05 Blood Pressure 94/69 L 10/19/24 14:05 Pulse Oximetry 96 10/19/24 14:05 Oxygen Delivery Room Air 10/19/24 14:05 Temperature 37.3 C 10/19/24 14:05 Pulse Rate 72 10/19/24 14:05 Respiratory Rate 20 10/19/24 14:05 Blood Pressure 94/69 L 10/19/24 14:05 Pulse Oximetry 96 10/19/24 14:05 Oxygen Delivery Room Air 10/19/24 14:05 Vital signs reviewed Procedures Bursa Procedures Bursa #1: Date: 10/19/24 Time: 14:15 Location: Right olecranon bursitis Time Out Performed: Yes Side of body: right Site of Procedure: olecranon bursa XRAY Obtained: none Antisepsis Used: other (antiseptic wound wash) Local Anesthetic: none Amount of anesthesia used (mL): 0 Fluid obtained (mL): 60 Fluid Type: cloudy and other (yellow) Medication Injected: other (None) Amount of medication used (mg): 0 Lidocaine Added to Medication: No Patient Tolerated Procedure: well and no complications Complications: none Additional Comments: Drainage/aspiration of the right elbow synovial fluid performed in the clinic today. Area was cleansed with antiseptic wound wash in an 18 gauge needle with a 30 mL syringe was used to aspirate approximately 60 mL of yellow cloudy fluid. No blood was visualized in the fluid. Patient tolerated well. Area was re- cleansed with antiseptic wound wash and a Band-Aid and Rocky wrap was applied. MDM - Extremity Injury (Upper) MDM Narrative Medical decision making narrative: At the time of visit patient is resting comfortably on the exam table. Patient appears to be nontoxic. Patient has red, swollen, erythemic right elbow x2 days. Rates pain 4/10. Has full flexion and extension of the right elbow. No fevers, chills, body aches. No injury/trauma to the right elbow. History of olecranon bursitis in the past. No obvious wound to the skin. No history of MRSA. Patient would like bursitis drained in the clinic today. Risk and benefits of aspiration was reviewed with the patient she voiced understanding. Cell count, culture with Gram stain, and crystal evaluation was ordered. Procedures: Drainage/aspiration of the right elbow synovial fluid performed in the clinic today. Area was cleansed with antiseptic wound wash in an 18 gauge needle with a 30 mL syringe was used to aspirate approximately 60 mL of yellow cloudy fluid. No blood was visualized in the fluid. Patient tolerated well. Area was re-cleansed with antiseptic wound wash and a Band-Aid and Rocky wrap was applied. Plan: I suspect patient has likely infected olecranon bursitis. Prescription for dicloxacillin was sent to the pharmacy. Recommend follow-up with PCP in 2-3 days for recheck. Go to the emergency room if her symptoms worsen. Supportive measures were discussed with the patient and they voiced understanding discharge instructions and agrees to treatment plan. Return precautions reviewed Differential Diagnosis Differential diagnosis: Likely other (Elbow fracture, olecranon bursitis, septic arthritis, septic joint, gout, soft tissue injury, skin infection, cellulitis, insect bite, allergic reaction, traumatic bursitis) Discharge Plan Discharge Clinical Impression: Bursitis of right elbow Qualifiers: Elbow bursitis location: olecranon bursitis Qualified Code(s): M70.21 - Olecranon bursitis, right elbow Patient Disposition: Home Condition: Stable Instructions: Antibiotic Form, Elbow Bursitis (ED) Additional Instructions: Approximately 60 mL of synovial fluid was removed from the right elbow Synovial fluid was sent for a cell count, culture, and crystal evaluation Take dicloxacillin as prescribed Increase fluids and stay well hydrated Keep Rocky wrap in place for the next 7 days Keep area clean and dry May apply ice pack to the affected area for 20 minutes at a time-20 minutes on/20 minutes off for the next 24-48 hours May take Tylenol/Motrin as needed for pain Follow-up with your primary care doctor in 2-3 days for recheck Go to the emergency room if symptoms worsen-fever, chills, body aches, increase in swelling, increase in pain, purulent discharge, or streaking Patient Language: Hungarian Prescriptions: New dicloxacillin 500 mg capsule 500 mg PO Q6H 10 Days Qty: 40 0RF No Action Ozempic 0.25 mg or 0.5 mg (2 mg/3 mL) pen injector 1 mg subcut WEEKLY Rx Instructions: nicotine 21 mg/24 hr Patch 24 Hour 1 patch transdermal DAILY Qty: 30 0RF metoprolol tartrate 50 mg Tablet 50 mg PO BID losartan 100 mg Tablet 100 mg PO DAILY nortriptyline 50 mg Capsule 50 mg PO DAILY albuterol sulfate [ProAir HFA] 90 mcg/actuation HFA aerosol inhaler 2 inhalation INHALATION Q4H Qty: 8.5 6RF budesonide-formoterol [Symbicort] 160-4.5 mcg/actuation HFA aerosol inhaler 2 puff INHALATION BID Rx Instructions: 2 puffs inhalation twice daily in the morning and in the evening; Spiriva Respimat 2.5 mcg/actuation mist 2 puff inhalation DAILY 30 Days Qty: 4 5RF buspirone 5 mg tablet See Rx Instructions .ROUTE .COMPLEX Qty: 60 1RF Dose Instruction: TAKE 1 TABLET(5 MG) BY MOUTH TWICE DAILY FOR ANXIETY Rx Instructions: TAKE 1 TABLET(5 MG) BY MOUTH TWICE DAILY FOR ANXIETY Follow-up/Referrals: Adolfo,JARED Mcdonnell [Primary Care Provider] - Time of Disposition: 14:42 Quality NIHSS Nursing Documentation ED NIHSS nursing documentation: reviewed/agree
[2024-10-19 14:05] VITALS: BP 94/69; PULSE 72; RESP 20; TEMP 37.3; O2SAT 96
--- NOTE | 2024-10-19 14:42 | PC.NURSE ---
THIS RN CALLED MATT IN LAB, BRIANNA SCOTT WANTS SYNOVIAL FLUID TESTING ON ASPIRATION DONE OF THE RIGHT ELBOW IN CLINIC. MATT ERICKSON ADVISED TO HOW TO ORDER THE TESTS, (REFERRED TO [facility]ANNA BRICE[facility] [employer] INSTRUCTOR) WHICH SPECIMEN TUBES TO USE FOR EACH OF THE ORDERED ITEMS AND ADVISED THIS NURSE ONCE LABELS PRINTED OUT WHICH LABEL GOES ON WHAT SPECIMEN AND ALSO WHERE TO SEND TO SPECIMENS FOR TESTING. ALL SPECIMENS LABELED AND ORDERED CORRECTLY PER MATT ERICKSON IN LAB AT [facility]. FLAKITA BLANCO RN.
[2024-10-19 20:47] LABS: Color Synovial Fluid Yellow (Colorless); Source Synovial Fluid RT Elbow Syn Fluid
[2024-10-19 20:58] LABS: Lymphocytes Synovial Fluid 2 %; Monocytes Synovial Fluid 1 %; Neutrophils Synovial Fluid 97 % (0-25); Nucleated Cell Synovial Fluid 11085 /uL (0-200); RBC Synovial Fluid 5000 /uL (0-0)
== END 2024-10-19 14:49 | disposition home or self-care (01) ==
PROVIDERS: Emergency Provider Nurse Practitioner Family; PCP Physician Assistant
DX: M70.21 Olecranon bursitis, right elbow (principal); I10 Essential (primary) hypertension; J44.9 Chronic obstructive pulmonary disease, unspecified; E66.9 Obesity, unspecified; F33.9 Major depressive disorder, recurrent, unspecified; Z68.41 Body mass index [BMI] 40.0-44.9, adult; Z87.891 Personal history of nicotine dependence
CPT/HCPCS: 20605; 87070; 87075; 87205; 89051; 89060; 99213; G0463

== ENCOUNTER 2024-10-21 08:47 | Outpatient (CLI) | payer MEDICARE, OTHER, SELFPAY ==
--- NOTE | 2024-11-17 21:41 | P.SLEEP_ITS ---
Sleep Study Date of Study: 10/21/24 Ordering Provider: Kelin Hassan MD Interpreting Physician: Kelin Hassan MD Sleep Study Type: CPAP Titration Height: 1.52 m Weight: 93.44 kg Body Mass Index: 40.2 Neck Circumference (inches): 17 [place]: 3 Reason for Sleep Study * 05/26/2024 basic polysomnogram showing severe obstructive sleep apnea, AHI 33.8, desaturation to 80% while using O2 at 2 L/min, and moderate snoring. She returns for a full night titration. Sleep History This history is from her 05/26/2024 sleep questionnaire. Sherri Ramirez is a 63-year-old woman with lung cancer, uses O2, and she has COPD. [place] in the office was 13, and she describes being sleepy in the day. Bedtime is midnight, wakes at 8:30 am, has dreams at night. Wakes once to urinate. Caffeine: no coffe e; Coke in a small bottle occasionally. Legs: pulls legs up in her sleep, right knee is troublesome. She sometimes awakens from sleep short of breath. She generally does not wakes at night with heartburn, belching or coughing.??She snores, sometimes snores loudly enough that others complain. She sometimes has trouble sleeping when she has a cold. She does not wakes up gasping for breath during the night. She falls asleep during the day. She does not experience loss of muscle tone with strong emotion. She never feels paralyzed on waking or falling asleep. She never experiences vivid dreams upon waking or falling asleep. She rarely feels afraid of going to sleep. She sometimes recalls her dreams. She often has thoughts racing through her mind. She rarely feels sad or depressed. She rarely kicks during the night. She sometimes pulls her legs close to her body at night. She never has morning jaw pain, and never grinds her teeth at night. She rarely feels bothered by pain during the day, is rarely awakened by pain during the night. She rarely wakes up feeling stiff in the morning. Normal bedtime is 8:30 p.m. waking once time at night. She takes naps in the day when needed. Habits:??Tobacco: former smoker Caffeine:no coffee, has a small Coke on occasion. Alcohol: none Recreational substances: none [facility]LY [facility] Past Medical History Medical History Hypertension Right hand dominant COPD (chronic obstructive pulmonary disease) RAISSA (obstructive sleep apnea) Screening for hyperlipidemia Nodule of left lung Major depressive disorder, recurrent, unspecified Essential hypertension Asthma with COPD (chronic obstructive pulmonary disease) Anxiety disorder, unspecified Family History Family History Mother Diabetes mellitus Heart attack Hypertension Father Heart attack Hypertension Smoker Social History Social History Smoking packs per day: 1 Smoking cigarettes per day: 20.0 Years smoked: 40 Smoking pack-years: 40.00 Smoking status: Former smoker Tobacco type: cigarettes Smoking end date: 12/31/23 Alcohol intake: never Substance use: never Substance use type: does not use Do You Feel Safe in your Home?: Yes Lack of Transportation: No Lack of Food: Never True Current Housing: I Have Housing Concerned About Future Housing: No Difficulty Paying Gas/Electric Bills: No Difficulty Paying for Meds: No Currently Unemployed: No Education: High School Diploma/GED Difficulty w/ Childcare or Family Care: No Spiritual care concerns: No Medications Home Medications ?Medication ?Instructions ?Recorded ?Confirmed ?Type albuterol sulfate 90 mcg/actuation 2 inhalation inhala tion Q4H #8.5 02/17/19 05/06/24 Rx aerosol inhaler (ProAir HFA) grams budesonide-formoterol HFA 160 2 puff inhalation BID 05/06/24 History mcg-4.5 mcg/actuation aerosol inhaler (Symbicort) losartan 100 mg tablet 100 mg PO DAILY 06/13/2208/23 History metoprolol tartrate 50 mg tablet 50 mg PO BID 06/13/22 05/06/24 History nortriptyline 50 mg capsule 50 mg PO DAILY 06/13/22 History semaglutide 0.25 mg or 0.5 mg (2 1 mg subcut WEEKLY 05/06/24 History mg/3 mL) subcutaneous pen injector (Ozempic) tiotropium bromide 2.5 2 puff inhalation DAILY 1 mo nth #4 11/15/23 05/06/24 Rx mcg/actuation mist for inhalation grams (Spiriva Respimat) nicotine 21 mg/24 hr daily 1 patch transdermal DAILY # 30 ea 12/20/23 05/06/24 Rx transdermal patch buspirone 5 mg tablet See Rx Instructions .Route 0 08/07/24 Rx .COMPLEX #60 tabs dicloxacillin 500 mg capsule 500 mg PO Q6H 10 days #40 caps 10/19/24 Rx ciprofloxacin HCl 500 mg tablet 500 mg PO Q12H 10 days #20 tabs 10/22/24 Rx clindamycin HCl 300 mg capsule 300 mg PO Q8H 10 days # 30 caps 10/22/24 Rx (Cleocin HCl) buspirone 5 mg tablet 5 mg PO BID 3 months #180 ta bs 11/11/24 Rx Sleep Procedure A full night polysomnogram using the [employer] SleepVirtualmin multi-channel system recorded the standard physiologic parameters including EEG, EOG, submentalis EMG, anterior tibialis EMG, EKG, body position, nasal and oral airflow using nasal pressure sensor and thermistor. Respiratory parameters of chest and abdominal movements were recorded with Respiratory Inductance Plethysmography belts. Oxygen saturation was recorded by pulse oximetry. Video monitoring was also performed. Sleep stages, periodic limb movements, and EEG arousals were scored in 30 second epochs according to the criteria of the AASM Scoring Manual. The Apnea-Hypopnea Index was calculated using [facility] guidelines for definition of hypopnea with 4% O2 desaturations while scoring respiratory events. On arrival she was using oxygen at 1 liter/minute with a saturation of 100%. The instrumentation and controls technician had the patient remove oxygen. After 20 minutes, her saturation was 88% on room air. She self-administered Lunesta 2 mg at the start of the study The patient started CPAP using a medium ResMed AirTouch F20 fullface mask with heated humidity without supplemental O2. When she started the study with CPAP at 5 cm, she had a panic attack. She told the tech that she sleeps in the prone position or straight up in bed, but she does not sleep supine. She was willing to continue this study with the head of the bed elevated and with 3 pillows for comfort. The titration proceeded, CPAP was increased to 6 cm with the saturation remaining below 88%. CPAP was increased to 7 cm, 9 cm during REM. CPAP was titrated to 11 cm. Oxygen 1 liter/minute was added while the patient was at CPAP 11 cm due to sustained hypoxemia. CPAP was increased to 12 cm for snoring. Oxygen was increased to 2 L/min for sustained hypoxemia. The titration continued with a CPAP 13 cm, 14 cm, 15 cm. At CPAP 15 cm, she spent 39 minutes in bed, 15 minutes awake, 23 minutes in NREM, no time in REM. Sleep efficiency was 60.5% The residual AHI was 0, and the mean saturation was 87.7%. She had REM at CPAP 13 cm and 14 cm. Sleep Architecture The total recording time was 431.1 minutes. The total sleep time was 364.5 minutes. Sleep latency was 20.0 minutes. REM latency was 58.5 minutes. Sleep efficiency was 84.5%. The patient had 22 awakenings for an awakening index of 3.6. Wake after Sleep Onset time was 46.5 minutes. The patient spent 25.0 minutes, 6.9% of total sleep time in Stage N1. The patient spent 156.0 minutes, 42.8% in Stage N2. The patient spent 135.0 minutes, 37.0% in Stage N3. The patient spent 48.5 minutes, 13.3% in Stage REM. Respiratory Analysis The patient had 28 hypopneas, no obstructive apneas, 1 mixed apnea, and no central apneas for an overall Apnea Hypopnea Index of 4.8 events per hour. The REM Apnea Hypopnea Index was 21.0. The NREM Apnea Hypopnea Index was 2.3. The patient had a Central Apnea Hypopnea Index of 0. There were no Respiratory Effort Related Arousals. The Respiratory Disturbance Index is 7.4 events per hour. There was no evidence of Randolph-Howell Respirations. Arousals There were 106 total arousals for an arousal index of 17.4. There were 44 spontaneous arousals for an index of 7.2. There were 9 arousals due to respiratory events for an index of 1.5. There were 20 arousals due to periodic limb movements for an index of 3.3. There were 28 arousals due to isolated limb movements for an index of 4.6. Periodic Limb Movements The patient had 217 isolated limb movements with an index of 35.7. The patient had 196 periodic limb movements with index of 32.3. Patient had a total of 413 limb movements with a total limb movement index of 68.0. Oximetry Data The patient had an average oxygen saturation of 87% in sleep with a minimum oxygen saturation of 71% and a maximum oxygen saturation of 93%. The patient had 28 oxygen desaturations that were 4% or greater resulting in an Oxygen Desaturation Index of 4.6. The patient spent 330.1 minutes, 76.7% of total sleep time with an oxygen saturation below 88%. Snoring Profile Snoring was moderate, eliminated during the titration. Cardiac Profile The EKG showed normal sinus rhythm. The patient had an average pulse rate of 86.8 bpm with a minimum pulse rate of 72 bpm and a maximum pulse rate of 96 bpm. No arrhythmias noted. EEG Profile Unremarkable, no evidence of seizures. Assessment and Plan Assessment and Plan (1) Obstructive sleep apnea: Code(s): G47.33 - Obstructive sleep apnea (adult) (pediatric) Status: Acute Assessment and Plan: This full night CPAP titration on 10/21/2024 shows a challenging procedure, highest pressure was CPAP 15 cm with 2 L/min O2 with a medium AirTouch F20 fullface mask. At CPAP 15 cm, she spent 39 minutes in bed, 15 minutes awake, 23 minutes in NREM, no time in REM. Sleep efficiency was 60.5% The residual AHI was 0, and the mean saturation was 87.7%. She had REM at CPAP 13 cm and 14 cm. She was using 3 pillow during this titration. Using pillows instead of sleeping supi ne partially relieved the severity of her apnea. The goal during a titration is to have all stages of sleep in all body positions. She had an aggressive titration, and this was complicated by her need for supplemental O2. I recommend that she uses CPAP 15 cm with the medium ResMed AirTouch F20 fullface mask and heated humidity. The patient should be prescribed this ResMed equipment as well as tubing, filters and reservoir. This should be used with all episodes of sleep. Compliance should be reviewed within 31-90 days of starting therapy for usage greater than 4 hours per night greater than 70% of the nights. The patient should be asked about symptoms such as excessive daytime sleepiness, quality of sleep, decreased nocturia, increased mental functioning such as memory, mood, and concentration. She hsould have a nocturnal oximetry on CPAP 15 with 2 /min O2 after 2-3 weeks using this PAP therapy. BMI is 40. Weight management is advised. Clinical data suggests that weight loss of 10% can reduce the severity of respiratory events and snoring and improve AHI by as much as 25%. She had a large number of limb movements, however these did not cause arousals. These may be related to sleep-disordered breathing, and may improve with PAP therapy. Data The data obtained during this sleep study is adequate for interpretation. Certification This sleep study has been reviewed by a board certified sleep medicine physician.
[2024-11-17 21:54] VITALS: BMI 40.2
== END 2024-10-22 07:28 | disposition home or self-care (01) ==
LOC: ANHCSM 08:47
PROVIDERS: PCP Physician Assistant; Visit Provider Internal Medicine Critical Care Medicine
DX: G47.33 Obstructive sleep apnea (adult) (pediatric) (principal)
CPT/HCPCS: 20605; 82945; 84157; 87070; 89051; 89060; 95811; 99283; A9270

== ENCOUNTER 2024-10-22 15:59 | Emergency (ER) | payer MEDICARE, OTHER, SELFPAY ==
--- OUTSIDE RECORDS SUMMARY | 2024-10-22 16:01 | XMS_ITS | Clinical Summary ---
Author Organization [facility] Barbara Dunbar Address [address] [place] [address] Care Team Providers Care Instructor Ground Services Name Role Phone Unavailable Primary Care Provider [...] Encounters Date Type Department Care Team Description 09/22/2024 External Device Data [facility] ABSTRACTION Provider, Abstract 08/25/2024 External Device Data [facility] Provider, Abstract 08/19/2024 External Device Data [facility] ABSTRACTION Provider, Abstract 08/18/2024 External Device Data [facility] ABSTRACTION Provider, Abstract [...] Description 11/20/2024 10:15 AM CDT Office Visit [facility] Oncology and Hematology - Chris [address] [place] [address] Dakota Watkins MD [address] [facility] [address] [place] [address] Health Maintenance Due Date Last Done Comments Pre-Diabetes and Diabetes Screening 1961 HPV/Cotest (21-29) 1982 HPV/Cotest (30-65) 07/10/1991 BREAST CANCER SCREENING 2001 COLORECTAL SCREENING 2006 Colorectal Cancer Screening 2006 FIT-DNA Q 3 years 2006 FIT/FOBT Q 1 year 2006 Flex Sig/CT Colonography Q 5 years 2006 ZOSTER VACCINE (1 of 2) 07/10/2011 RSV VACCINE (60+ or ) (1 - Risk 60-74 years 1-dose series) 2021 INFLUENZA VACCINE (#1) 2024 01/13/2024, 2021 CERVICAL CANCER SCREENING 04/23/2027 PAP SMEAR 04/23/2027 04/23/2024 DTAP/TDAP/TD VACCINES (2 - Td or Tdap) 08/31/2027 Insurance MED[place] PART A AND B [employer]
[2024-10-22 16:14] VITALS: BP 152/90; PULSE 81; RESP 18; TEMP 37; O2SAT 95
--- OUTSIDE RECORDS SUMMARY | 2024-10-22 19:12 | XMS_ITS | Clinical Summary ---
Author Organization [facility] Barbara Dunbar Address [address] [place] [address] Care Team Providers Care Welder Setter Resistance Machine Name Role Phone Unavailable Primary Care Provider [...] Description 11/20/2024 10:15 AM CDT Office Visit [facility] Oncology and Hematology - Chris [address] [place] [address] Dakota Watkins MD [address] [facility] [address] [place] [address] Health Maintenance Due Date Last [...] [place] PART A AND B [employer]
--- NOTE | 2024-10-22 19:20 | ED_ITS ---
HPI - Extremity Problem General Chief complaint: Extremity Problem,Nontraumatic Stated complaint: swollen and red right elbow Time Seen by Provider: 10/22/24 18:56 Source: patient Mode of arrival: ambulatory Limitations: no limitations History of Present Illness HPI Narrative: 64-year-old here for right elbow infection. Patient was seen a few days ago in urgent care for bursitis and had the bursa drained. Called today because they found MRSA and Pseudomonas. Told to come here to be evaluated. Patient feels perfectly fine. Has some slight pain in the bursa area but no other pain in her elbow. He has good range of motion it. No fevers or chills. Related Data Home Medications ?Medication ?Instructions ?Recorded ?Confirmed ?Last Taken ?Type budesonide-formoterol HFA 160 2 puff inhalation BID 09/08/19 05/06/24 04/01/24 History mcg-4.5 mcg/actuation aerosol inhaler (Symbicort) losartan 100 mg tablet 100 mg PO DAILY 06/13/22 05/06/24 04/01/24 History metoprolol tartrate 50 mg tablet 50 mg PO BID 06/13/22 05/06/24 04/01/24 History nortriptyline 50 mg capsule 50 mg PO DAILY 06/13/22 05/06/24 04/01/24 History semaglutide 0.25 mg or 0.5 mg (2 1 mg subcut WEEKLY 10/15/23 05/06/24 03/27/24 History mg/3 mL) subcutaneous pen injector (Ozempic) Allergies Allergy/AdvReac Type Severity Reaction Status Date / Time sertraline Allergy Intermediate Itching Verified 10/22/24 16:00 Sulfa (Sulfonamide Allergy Unknown Unknown Verified 10/22/24 16:00 Antibiotics) Review of Systems Review of Systems: All systems reviewed & are unremarkable except as noted in HPI and below (HPI) [facility] Past Medical History Medical History Hypertension Right hand dominant COPD (chronic obstructive pulmonary disease) RAISSA (obstructive sleep apnea) Screening for hyperlipidemia Nodule of left lung Major depressive disorder, recurrent, unspecified Essential hypertension Asthma with COPD (chronic obstructive pulmonary disease) Anxiety disorder, unspecified Family History Family History Mother Diabetes mellitus Heart attack Hypertension Father Heart attack Hypertension Smoker Social History Social History Smoking packs per day: 1 Smoking cigarettes per day: 20.0 Years smoked: 40 Smoking pack-years: 40.00 Smoking status: Former smoker Tobacco type: cigarettes Smoking end date: 12/31/23 Alcohol intake: never Substance use: never Substance use type: does not use Do You Feel Safe in your Home?: Yes Lack of Transportation: No Lack of Food: Never True Current Housing: I Have Housing Concerned About Future Housing: No Difficulty Paying Gas/Electric Bills: No Difficulty Paying for Meds: No Currently Unemployed: No Education: High School Diploma/GED Difficulty w/ Childcare or Family Care: No Spiritual care concerns: No Exam Narrative: Constitutional: Generally well appearing, no acute distress Head: Atraumatic, no deformities. Eyes: Pupils equal, round, and reactive to light. Neck: Supple, no tracheal deviation, no JVD. ENMT: Mucous membranes moist Cardiovascular: S1, S2 auscultated. No murmurs, rubs, or gallops. No S3/S4. Normal Distal pulses. No peripheral edema. Respiratory: Lung sounds equal. No wheezes, rales, or rhonchi. Gastrointestinal: Abdomen was soft and non-tender. Non-distended. No rebound or guarding. Genitourinary: Deferred Musculoskeletal: Normal muscle tone and bulk. Right olecranon bursitis present with some mild warmth over the area. No skin erythema or overlying cellulitis. Good range of motion of the elbow without any pain. No tenderness over the joint. Skin: No rashes. Neurological: Strength 5/5 in extremities. Cranial nerves I-XII grossly intact. Distal sensation intact. Mental Status: Awake, alert and oriented x3. Follows commands Course Vital Signs Vital signs: Vital Signs Temperature 37.0 C 10/22/24 16:14 Pulse Rate 81 10/22/24 16:14 Respiratory Rate 18 10/22/24 16:14 Blood Pressure 152/90 H 10/22/24 16:14 Pulse Oximetry 95 10/22/24 16:14 Oxygen Delivery Nasal Cannula 10/22/24 16:14 Oxygen Flow Rate 2 10/22/24 16:14 Temperature 37.0 C 10/22/24 16:14 Pulse Rate 81 10/22/24 16:14 Respiratory Rate 18 10/22/24 16:14 Blood Pressure 152/90 H 10/22/24 16:14 Pulse Oximetry 95 10/22/24 16:14 Oxygen Delivery Nasal Cannula 10/22/24 16:14 Oxygen Flow Rate 2 10/22/24 16:14 Procedures Bursa Procedures Bursa #1: Date: 10/22/24 Time: 19:37 Location: Right olecranon bursa Side of body: right Site of Procedure: olecranon bursa XRAY Obtained: none Antisepsis Used: Povidone-Iodine1% Local Anesthetic: none Fluid obtained (mL): 20 Fluid Type: cloudy Patient Tolerated Procedure: well Complications: none MDM - Extremity (Nontraumatic) MDM Narrative Medical decision making narrative: Patient presenting for concerns for infected elbow bursitis. Was told to come by urgent care provider. Reviewing EMR she has positive MRSA and Pseudomonas in the elbow. Seems sensitive to clindamycin and ciprofloxacin in combination for coverage. Patient herself feels great, no complaints. Exam shows good range of motion of the elbow without pain. Has some obvious bursitis over the right elbow that may benefit being drained again and patient would like me to drain. Will do so at bedside. She was offered labs to further evaluate for infection, IV antibiotics but she does not want that, just wants oral antibiotics and to be discharged home to follow-up with PCP. Drained 30 cc at bedside. Patient feeling a improved to this point. She was given a dose of antibiotics. She actually had prescriptions are written for her by her urgent care provider and they are clindamycin and ciprofloxacin the same I was going to give her so we will order pick those up. Pt feeling improved and would like to go home at this point. Return precautions were given to the patient include any new or worsening symptoms or development of and not limited to any chest pain, shortness of breath, lightheadedness, abdominal pain, fevers, chills. Patient understands and agrees. They are to follow-up with her PCP. All questions were answered. I reviewed and interpreted the patient's vital signs, pulse oximetry, pattern duplicator, history, allergies, and labs and imaging workup. Discharge Plan Discharge Clinical Impression: Bursitis, olecranon Qualifiers: Laterality: right Qualified Code(s): M70.21 - Olecranon bursitis, right elbow Septic bursitis of elbow Qualifiers: Laterality: right Qualified Code(s): M71.121 - Other infective bursitis, right elbow Patient Disposition: Home Condition: Stable Instructions: Antibiotic Form, Elbow Bursitis (ED) Patient Language: Croatian Prescriptions: No Action dicloxacillin 500 mg capsule 500 mg PO Q6H 10 Days Qty: 40 0RF clindamycin HCl [Cleocin HCl] 300 mg capsule 300 mg PO Q8H 10 Days Qty: 30 0RF ciprofloxacin HCl 500 mg tablet 500 mg PO Q12H 10 Days Qty: 20 0RF Ozempic 0.25 mg or 0.5 mg (2 mg/3 mL) pen injector 1 mg subcut WEEKLY Rx Instructions: nicotine 21 mg/24 hr Patch 24 Hour 1 patch transdermal DAILY Qty: 30 0RF metoprolol tartrate 50 mg Tablet 50 mg PO BID losartan 100 mg Tablet 100 mg PO DAILY nortriptyline 50 mg Capsule 50 mg PO DAILY albuterol sulfate [ProAir HFA] 90 mcg/actuation HFA aerosol inhaler 2 inhalation INHALATION Q4H Qty: 8.5 6RF budesonide-formoterol [Symbicort] 160-4.5 mcg/actuation HFA aerosol inhaler 2 puff INHALATION BID Rx Instructions: 2 puffs inhalation twice daily in the morning and in the evening; Spiriva Respimat 2.5 mcg/actuation mist 2 puff inhalation DAILY 30 Days Qty: 4 5RF buspirone 5 mg tablet See Rx Instructions .ROUTE .COMPLEX Qty: 60 1RF Dose Instruction: TAKE 1 TABLET(5 MG) BY MOUTH TWICE DAILY FOR ANXIETY Rx Instructions: TAKE 1 TABLET(5 MG) BY MOUTH TWICE DAILY FOR ANXIETY Follow-up/Referrals: Adolfo,JARED Mcdonnell [Primary Care Provider] - Time of Disposition: 19:39
[2024-10-22] MEDS: CLINDAMYCIN HCL 150 MG CAP 300 MG PO (19:29)
[2024-10-22] MEDS: CIPROFLOXACIN 500 MG TAB PO (19:29)
[2024-10-22 20:53] LABS: Color Synovial Fluid Yellow (Colorless); Lymphocytes Synovial Fluid 1 %; Neutrophils Synovial Fluid 98 % (0-25); Nucleated Cell Synovial Fluid 10108 /uL (0-200); RBC Synovial Fluid 3000 /uL (0-0); Source Synovial Fluid RT Elbow Syn Fluid
[2024-10-24 13:08] LABS: Glucose, Body Fluid <2 mg/dL (.)
== END 2024-10-22 20:06 | disposition home or self-care (01) ==
PROVIDERS: Emergency Provider Emergency Medicine; PCP Physician Assistant
DX: M71.121 Other infective bursitis, right elbow (principal); B95.62 Methicillin resistant Staphylococcus aureus infection as the cause of diseases classified elsewhere; I10 Essential (primary) hypertension; J44.9 Chronic obstructive pulmonary disease, unspecified; G47.33 Obstructive sleep apnea (adult) (pediatric); Z79.85 Long-term (current) use of injectable non-insulin antidiabetic drugs; Z87.891 Personal history of nicotine dependence
CPT/HCPCS: 20605; 82945; 84157; 87070; 89051; 89060; 99283; A9270

== ENCOUNTER 2024-11-18 10:15 | Outpatient (CLI) | payer MEDICARE, OTHER, SELFPAY ==
--- NOTE | ~2024-11-18 | CT_ITS ---
Clinical Indication: Neoplasm CT Scan of the Chest with Contrast: Technique: Contiguous sections were acquired throughout the chest after intravenous administration of 75 cc of Omnipaque 350. Dose reduction technique was used on this scan by utilizing automated exposure control and iterative reconstruction technique. The dose-length product (DLP) was 879.73 mGy-cm. COMPARISON: 06/30/2024 Findings: There is no evidence of any significant mediastinal, hilar or axillary lymphadenopathy. There is no filling defect in the pulmonary arterial tree to suggest pulmonary embolus. There is no evidence of aortic dissection or aneurysm. There is no evidence of pleural or pericardial effusion. Stable probable post treatment change and/or scarring in the left upper lobe peripherally. There is moderate upper lobe emphysema. Images through the upper abdomen reveal no abnormalities. Impression: Stable posttreatment change or scarring in the left upper lobe. Moderate upper lobe emphysema. Reviewed, dictated and finalized at [facility]. Impression: Stable posttreatment change or scarring in the left upper lobe. Moderate upper lobe emphysema.
--- OUTSIDE RECORDS SUMMARY | 2024-11-18 10:39 | XMS_ITS | Clinical Summary ---
Author Organization [facility] Barbara Dunbar Address [address] [place] [address] Care Team Providers Care Benefits Counselor Name Role Phone Unavailable Primary Care Provider [...] Encounters Date Type Department Care Team Description 11/03/2024 External Device Data [facility] ABSTRACTION Provider, Abstract 09/22/2024 External Device Data [facility] ABSTRACTION Provider, [...] Description 11/20/2024 10:15 AM CDT Office Visit [facility] Oncology and Hematology - Chris [address] [place] [address] Dakota Watkins MD [address] [facility] [facility] [address] [place] [address] Health Maintenance Due Date Last [...] [place] PART [place] AND B [place]
[2024-11-18 10:44] LABS: Estimated Glomerular Filt Rate > 60
== END 2024-11-18 10:16 | disposition home or self-care (01) ==
PROVIDERS: PCP Physician Assistant; Visit Provider Radiology Radiation Oncology
DX: J43.8 Other emphysema (principal); C34.90 Malignant neoplasm of unspecified part of unspecified bronchus or lung
CPT/HCPCS: 71260; Q9967

== ENCOUNTER 2024-11-20 09:40 | Outpatient (CLI) | payer MEDICARE, OTHER, SELFPAY ==
--- OUTSIDE RECORDS SUMMARY | 2024-11-20 09:46 | XMS_ITS | Encounter Summary ---
Author Organization [facility] [address] [facility] Address [address] [place] [address] Care Team Providers Care Correspondence Section Supervisor Name Role Phone Unavailable Primary Care Provider Unavailabl e Reason for Visit * Reason Onset Date Comments CT for appointment 11/19/2024 Encounter Details Date Type Department Care Team (Late Contact Info) Description 11/19/2024 Telephone [facility] Oncology and Hematology - Chris [address] [facility] [address] [place] [address] Dakota Watkins MD [address] [facility] [address] [place] [address] [address] for appointment Social History Tobacco Use Types Packs/Day Years [...] * Telephone Encounter - Kesha Coyle - 11/19/2024 8:40 AM CDT LVM for patient regarding her appointment tomorrow. I don't see that she got her CT scan done. I asked patient to give our office a call back. documented in this encounter Plan of Treatment Upcoming Encounters Date Type Department Care Team (Late st Contact Info) Description 11/20/2024 10:15 AM CDT Office Visit [facility] Oncology and Hematology - Chris [address] [facility] [address] [place] [address] Dakota Watkins MD [address] [facility] [address] [place] [address] documented as of this encounter Visit Diagnoses Not on filedocumented in this encounter
--- OUTSIDE RECORDS SUMMARY | 2024-11-20 09:46 | XMS_ITS | Clinical Summary ---
Author Organization [facility] Barbara Dunbar Address [address] [place] [address] Care Team Providers Care Career Development Associate Name Role Phone Unavailable Primary Care Provider [...] Encounters Date Type Department Care Team Description 11/19/2024 Telephone [facility] On[facility] and [facility]ology - Chris [address] [facility] [address] [place] [address] for appointment 11/03/2024 External Device Data STL ABSTRACTION Provider, [...] Description 11/20/2024 10:15 AM CDT Office Visit [facility] Oncology and Hematology Chris [address] [facility] [address] [place] [address] Dakota Watkins MD [address] [facility] [address] [place] [address] Health Maintenance Due Date Last Done Comments Pre-Diabetes and Diabetes Screening 1960 Traditional Medicare (ACO) A nnual Wellness Visit 1980 HPV/Cotest (21-29) 1982 HPV/Cotest (30-65) 07/10/1991 BREAST [...] MED[place]ID [place] MED[place]ARE PART A AND B [email or web address]
[2024-11-20 09:52] LABS: Hematocrit 41.3 % (37.0-47.0); Hemoglobin 13.3 g/dL (12.0-15.0); Immature Granulocyte Percent A 0.3 % (0-0.5); Lymphocytes Absolute Auto 2.01 K/mm3 (0.9-3.2); Mean Corpuscular HGB Conc 32.2 g/dl (32-36); Mean Corpuscular Hemoglobin 30.4 pg (26-34); Mean Corpuscular Volume 94.3 fl (80-100); Nucleated Red Blood Cells Absolute Auto 0.000 K/mm3 (0.0-0.012); Nucleated Red Blood Cells Perc 0.0 % (0.0-0.2); Platelet Count Result 334 k/mm3 (150-375); Red Blood Count 4.38 M/mm3 (4.2-5.4); White Blood Count 9.9 K/mm3 (4.5-10.0)
[2024-11-20 09:59] LABS: Blood Urea Nitrogen 15 mg/dL (8-26); Carbon Dioxide 32 mmol/L (22-30); Chloride 96 mmol/L (98-109); Estimated Glomerular Filt Rate > 60; Glucose 96 mg/dL (70-105); Ionized Calcium (POC) 1.24 mmol/L (1.11-1.31); Potassium 4.2 mmol/L (3.5-4.9); Sodium 137 mmol/L (138-146)
[2024-11-20 12:04] LABS: Alanine Aminotransferase 18 U/L (6-35); Albumin Level 3.9 g/dL (3.5-5.1); Alkaline Phosphatase 146 U/L (38-126); Anion Gap 6 mmol/L (4-12); Aspartate Amino Transferase 35 U/L (14-36); Bilirubin,Total 0.3 mg/dL (0.2-1.3); Blood Urea Nitrogen 16 mg/dL (7-17); Calcium 9.7 mg/dL (8.4-10.2); Carbon Dioxide 32 mmol/L (22-30); Chloride 97 mmol/L (98-107); Estimated Glomerular Filt Rate > 60; Glucose 98 mg/dL (65-110); Potassium 4.3 mmol/L (3.4-5.0); Sodium 135 mmol/L (137-145); Total Protein 7.2 g/dL (6.3-8.2)
== END 2024-11-20 09:41 | disposition home or self-care (01) ==
LOC: ANHLAB 09:41
PROVIDERS: PCP Physician Assistant; Visit Provider Internal Medicine Hematology & Oncology
DX: C34.12 Malignant neoplasm of upper lobe, left bronchus or lung (principal)
CPT/HCPCS: 36415; 80047; 80053; 85025

== ENCOUNTER 2024-12-05 13:16 | Inpatient (IN) | payer MEDICARE, OTHER, SELFPAY ==
[2024-12-05] VITALS (12 sets, daily range): BP systolic 112–146; BP diastolic 57–99; PULSE 80–90; RESP 16–28; TEMP 36.6–36.7; O2SAT 96–99; BMI 42.3
--- NOTE | ~2024-12-05 | XR_ITS ---
EXAMINATION: XR chest 1V portable DATE: 12/05/2024 16:46 INDICATION: Dyspnea. COPD. TECHNIQUE: frontal view of the chest was obtained. COMPARISON: Chest CT dated 11/18/2024 and chest radiograph dated 04/01/2024 FINDINGS: Mild linear discoid atelectasis at the bilateral lung bases. No other airspace opacities, pulmonary edema, pleural effusion or pneumothorax. The cardiomediastinal silhouette is normal. Severe bilateral glenohumeral osteoarthritis. IMPRESSION: 1. Mild linear discoid atelectasis/scarring at the bilateral lung bases. Reviewed, dictated and finalized at location A.
--- OUTSIDE RECORDS SUMMARY | 2024-12-05 13:17 | XMS_ITS | Clinical Summary ---
Author Organization [facility] Barbara Dunbar Address [address] [place] [address] Care Team Providers Care Beauty Shop Manager Name Role Phone Unavailable Primary Care Provider Unavailabl e Allergies Active Allergy Reactions Criticality Noted Date Comments Sertraline Rash Medium 01/18/2022 Medications albuterol sulfate 90 mcg/actuation aero powdr breath act w/sensor Take by inhalation. Active predniSONE (DELTASONE) 50 mg tablet Take 50 mg by mouth daily. Active budesonide-for moteroL (SYMBICORT) 160-4.5 mcg/actuation HFA Aerosol Inhaler Take 2 Puffs by inhalation 2 times daily. Active multivit-min/c alc/biotin/D3/ FA (BIOTIN PLUS-CALCIUM AND VIT D3 ORAL) Take by mouth. Activ e nortriptyline (PAMELOR) 50 mg capsule Take 50 mg by mouth daily at bedtime. Active metoprolol tartrate (LOPRESSOR) 50 mg tablet Take 50 mg by mouth 2 times daily. Active losartan (COZAAR) 100 mg tablet Take 100 mg by mouth daily. Active traMADoL (ULTRAM) 50 mg tabletIndicati ons:Lung nodule Take 1 tablet 12 hours before the scan and then 3 hours before the scan. 5 Tablet 10/07/19 24 Active tiotropium (SPIRIVA RESPIMAT) 2.5 mcg/actuation Mist Inhale 2 puffs every day by inhalation route. 11/18/19 24 Active Zepbound 7.5 mg/0.5 mL Pen Injector Inject 7.5 mg by subcutaneous injection every 7 days. Active Ozempic 0.25 mg or 0.5 mg (2 mg/3 mL) Pen Injector Inject 1 mg by subcutaneous injection every 7 days. 025 Discontinu ed(Alterna te therapy prescribed ) Active Problems No known active problems Encounters Date Type Department Care Team Description 11/24/2024 Orders Only [facility] Oncology and Hematology - Chris [address] [place] [id number] Dakota Watkins MD 11/23/2024 Orders Only [facility] Oncology and Hematology - Chris [address] [place] [phone] Dakota Watkins MD 11/20/2024 10:15 AM CDT Office Visit [facility] Oncology and Hematology - Chris [address] [place] [phone] Dakota Watkins MD Malignant neoplasm of upper lobe of left lung (CMS/HCC) (Primary Dx) 11/20/2024 Orders Only [facility] Oncology and Hematology - Chris [address] [place] [phone] Dakota Watkins MD 11/19/2024 Telephone [facility] Oncology and Hematology - Chris [address] [place] [address] Dakota Watkins MD CT for appointment 11/03/2024 [...] Sign Reading Time Taken Comments Blood Pressure 124/90 11/20/2024 10:10 AM CDT Pulse 75 11/20/2024 10:10 AM CDT Temperature 36.4 C (97.6 F) 11/20/2024 10:10 AM CDT Respiratory Rate 16 11/20/2024 10:1 0 AM CDT Oxygen Saturation 86% 11/20/2024 10: 10 AM CDT removed her o2. only uses with movement Inhaled Oxygen Concentration - - Weight 97.8 kg (215 lb 9.6 oz) 11/20/2024 10:10 AM CDT Height 152.4 cm (5') 09/25/2023 1:33 PM CDT Body Mass Index 42.11 09/25/2023 1:33 PM CDT Plan of Treatment Upcoming Encounters Date Type Department Care Team (Late st Contact Info) Description 04/05/2025 1:15 PM ORAL SURGERY TECHNICIAN Office Visit [facility] Oncology and Hematology [facility] [address] [facility] [address] [place] [address] Dakota Watkins MD [address] [facility] [address] [place] [address] Health Maintenance Due Date Last [...] VACCINES (2 - Td or Tdap) 08/31/2027 06 /04/2017 Procedures Procedure Name Priority Date/Time Associated Diagnosis Comments COMPREHENSIVE METABOLIC PANEL Routine 11/20/2024 12:20 PM CDT BASIC METABOLIC PANEL Routine 11/20/2024 12:10 PM CDT CBC WITH AUTODIFFERENTIAL Routine 2024 12:08 PM CDT BASIC METABOLIC PANEL Routine 11/20/2024 10:33 AM CDT from Last 3 Months Results * COMPREHENSIVE METABOLIC PANEL (11/20/2024 12:20 PM CDT) Blood us Dakota Watkins MD CHEMISTRY ORDERABLES Final Resu lt * BASIC METABOLIC PANEL (11/20/2024 12:10 PM CDT) Only the most recent of2 resultswithin the time period is included. Blood us Dakota Watkins MD CHEMISTRY ORDERABLES Final Resu lt * CBC WITH AUTODIFFERENTIAL (11/20/2024 12:08 PM CDT) Blood us Dakota Watkins MD HEMATOLOGY ORDERABLES Final Res ult from Last 3 Months Insurance MEDICAID [place] MED[place]ARE PART A AND B [facility] Address: [facility] [address] [place] [address]
--- OUTSIDE RECORDS SUMMARY | 2024-12-05 13:18 | XMS_ITS | Clinical Summary ---
Author Organization [facility] Address [address] [facility] [place] [address] Care Team Providers Care Net Programmer Name Role Phone Unknown, Provider Primary Care Provider Unavaila ble Source Comments [facility],non-owned Affiliates and Associated Physician Practices is amultiple site organization consisting of ambulatory clinics and hospital sitesin [place], [place], [place] and [place]. This disclosure is being madepursuant to the Care Everywhere program and may not contain all information available regarding this patient. Last updated 17.[facility] [employer] Allergies Active Allergy Reactions Criticality Noted Date Comments Sertraline Rash Medium 01/18/2022 Medications * Be aware that medications may not be up to date on this document. Alwaysverify current medications with the patient. metoprolol tartrate IR (Lopressor) 50 MG tablet [...] Active vitamin D3 (Cholecaciferol) 125 MCG (5000 UT)Indications:H ypovitaminosis D Take 1 (one) tablet by mouth once daily 01/18/2022 Active omeprazole (PriLOSEC) 20 MG capsuleIndicatio ns:Gastroesophag eal reflux disease, unspecified whether esophagitis present Take [...] Recorded Patient Health Questionnaire-2 Score 0 06/17/2023 Comments Unknown Sex and Gender Information Value Date Recorded Sex Assigned at Not on file Legal Sex Female 10:31 AM CDT Gender Identity Not on file Sexual [...] SCREENING 1960 LIPID TESTING 1960 MAMMOGRAM 1961 HIV SCREENING 1976 HEPATITIS C SCREENING 07/05/1979 DTAP/TDAP/TD VACCINES (1 - Tdap) 1980 PNEUMOCOCCAL VACCINE 50+ (1 of 2 - PCV) 1980 PAP SMEAR 1982 ZOSTER VACCINE (1 of 2) 07/10/2011 Respiratory Syncytial Virus (RSV) Vaccine Pt: or over 60 yrs (1 - Risk 60-74 years 1-dose series) 2021 SCREENING FOR DIABETES 06/17/2023 COVID-19 VACCINE (2 - 2023-2 5 season) 2023 06/07/2020 DEPRESSION SCREENING 04/01/2024 06/17/2023 INFLUENZA VACCINE (#1) 2024 04/28/2021 HEPATITIS B VACCINE Aged Out No longe [...] on patient's age to complete this topic Insurance MEDICAID - [facility] MEDICAID - [place] Member Subscriber Plan / Payer (Ef fective 2023-Present) Name:Arnav Ramirez Member ID:Not on file Relation to Subscriber:Self Name:Nisha Ramirezne Payer ID:Not on file Group ID:Not on file Type:Medicaid [place] Address: [place] [id number] * Guarantor: ARNAV RAMIREZ Account Type Relation to Patient Date of Phone Billing Address Personal/Family [address] [place] [address] [place] Member Subscriber Plan / Payer (Ef fective for All Dates) Name:Arnav Ramirez Relation to Subscriber:Self Name:Arnav Ramirez Payer ID:Not on file Group ID:Not on file Type:Medicaid [place] Address: [place] [phone] SELF PAY NO INSURANCE Member Subscriber Plan / Payer (Ef fective for All Dates) Name:Arnav Ramirez Member ID:Not on file Relation to Subscriber:Not on file Name:ARNAV RAMIREZ Subscriber ID:Not on file (Home) Address: [address] [place] [address] Payer ID:Not on file Group ID:Not on file Type:Self Pay Address: [place], [place] * Guarantor: ARNAV RAMIREZ Account Type Relation to Patient Date of Phone Billing Address Personal/Family [address] [place] [address] [place] Member Subscriber Plan / Payer (Ef fective for All Dates) Name:Arnav Ramirez Relation to Subscriber:Self Name:Arnav Ramirez Payer ID:Not on file Group ID:Not on file Type:Medicaid [place] Address: [place] [phone] SELF PAY NO INSURANCE Member Subscriber Plan / Payer (Ef fective for All Dates) Name:Arnav Ramirez Member ID:Not on file Relation to Subscriber:Not on file Name:ARNAV RAMIREZ Subscriber ID:Not on file (Home) Address: [address] [place] [phone] Payer ID:Not on file Group ID:Not on file Type:Self Pay Address: [place], [place] * Guarantor: ARNAV RAMIREZ Account Type Relation to Patient Date of Phone Billing Address Personal/Family [address] [place] [phone] [place] SELF PAY NO INSURANCE Member Subscriber Plan / Payer (Ef fective for All Dates) Name:Arnav Ramirez Member ID:Not on file Relation to Subscriber:Not on file Name:ARNAV RAMIREZ Subscriber ID:Not on file (Home) Address: [address] [place] [phone] Payer ID:Not on file Group ID:Not on file Type:Self Pay Address: [place], [place] Care Teams Net Programmer Relationship Specialty Start Date End Date Unknown, Provider PCP - General 06/17/23
[2024-12-05] MEDS: IPRATROPIUM 0.5 MG/ALBUTEROL SULFATE 2.5 MG AMPUL.NEB 3 ML INHALATION ×3 (14:55→20:58)
[2024-12-05 15:00] LABS: Fractional Inspired Oxygen 28 %; HCO3 VBG 34.4 mEq/l (24.0-30.0); PCO2 VBG 62.4 mmHg (42.0-48.0); PO2 VBG 32.1 mmHg (35.0-45.0); pH VBG 7.359 (7.300-7.400)
[2024-12-05 15:09] LABS: Hematocrit 42.5 % (37.0-47.0); Hemoglobin 13.2 g/dL (12.0-15.0); Immature Granulocyte Percent A 0.3 % (0-0.5); Lymphocytes Absolute Auto 1.41 K/mm3 (0.9-3.2); Mean Corpuscular HGB Conc 31.1 g/dl (32-36); Mean Corpuscular Hemoglobin 29.6 pg (26-34); Mean Corpuscular Volume 95.3 fl (80-100); Nucleated Red Blood Cells Absolute Auto 0.000 K/mm3 (0.0-0.012); Nucleated Red Blood Cells Perc 0.0 % (0.0-0.2); Platelet Count Result 321 k/mm3 (150-375); Red Blood Count 4.46 M/mm3 (4.2-5.4); White Blood Count 9.2 K/mm3 (4.5-10.0)
--- NOTE | 2024-12-05 15:18 | ED.SOB ---
HPI - SOB/Dyspnea General Chief Complaint: Shortness of Breath/Dyspnea <Casie Linton PA-C - Last Filed: 12/05/24 19:26> Stated Complaint: sob <SHELIA Lazaro Last Filed: 12/05/24 19:26> Time Seen by Provider: 12/05/24 14:49 <SHELIA Lazaro Last Filed: 12/05/24 19:26> Source: patient <SHELIA Lazaro Last Filed: 12/05/24 19:26> Mode of arrival: EMS <SHELIA Lazaro Last Filed: 12/05/24 19:26> Limitations: no limitations <SHELIA Lazaro Last Filed: 12/05/24 19:26> History of Present Illness HPI Narrative: This is a 64-year-old female that presents to the emergency department for shortness of breath. Ongoing over the last couple of days. Patient has history of COPD, chronically wears oxygen. Has had increasing oxygen demand. Reports a productive cough. Denies fevers. <Casie Linton PA-C - Last Filed: 12/05/24 19:26> Related Data Home Medications: Home Medications ?Medication ?Instructions ?Recorded ?Confirmed ?Last Taken ?Type budesonide-formoterol HFA 160 2 puff inhalation BID 09/08/19 12/05/24 12/04/24 History mcg-4.5 mcg/actuation aerosol inhaler (Symbicort) losartan 100 mg tablet 100 mg PO DAILY 06/13/22 12/05/24 12/04/24 History metoprolol tartrate 50 mg tablet 50 mg PO BID 06/13/22 12/05/24 12/04/24 History nortriptyline 50 mg capsule 50 mg PO DAILY 06/13/22 12/05/24 12/04/24 History semaglutide 0.25 mg or 0.5 mg (2 1 mg subcut WEEKLY 10/15/23 12/05/24 12/03/24 History mg/3 mL) subcutaneous pen injector (Ozempic) ibuprofen 600 mg tablet 600 mg PO Q8H PRN pain 09/06/25 09/06/25 Unknown History <Casie Linton PA-C - Last Filed: 12/05/24 19:26> Allergies/Adverse Reactions: Allergies Allergy/AdvReac Type Severity Reaction Status Date / Time sertraline Allergy Intermediate Itching Verified 12/05/24 13:21 Sulfa (Sulfonamide Allergy Unknown Unknown Verified 12/05/24 13:21 Antibiotics) <Casie Linton PA-C - Last Filed: 12/05/24 19:26> Review of Systems Review of Systems: All systems reviewed & are unremarkable except as noted in HPI and below <Casie Linton PA-C - Last Filed: 12/05/24 19:26> PMFSH Past Medical History Medical History: Medical History Hypertension Right hand dominant COPD (chronic obstructive pulmonary disease) RAISSA (obstructive sleep apnea) Screening for hyperlipidemia Nodule of left lung Major depressive disorder, recurrent, unspecified Essential hypertension Asthma with COPD (chronic obstructive pulmonary disease) Anxiety disorder, unspecified <Casie Linton PA-C - Last Filed: 12/05/24 19:26> Family History Family History: Family History Mother Diabetes mellitus Heart attack Hypertension Father Heart attack Hypertension Smoker <Casie Linton PA-C - Last Filed: 12/05/24 19:26> Social History Social History: Social History Smoking packs per day: 1 Smoking cigarettes per day: 20.0 Years smoked: 40 Smoking pack-years: 40.00 Smoking status: Former smoker Tobacco type: cigarettes Smoking end date: 12/31/23 Alcohol intake: never Substance use: never Substance use type: does not use Do You Feel Safe in your Home?: Yes Lack of Transportation: No Lack of Food: Never True Current Housing: I Have Housing Concerned About Future Housing: No Difficulty Paying Gas/Electric Bills: No Difficulty Paying for Meds: No Currently Unemployed: No Education: High School Diploma/GED Difficulty w/ Childcare or Family Care: No Spiritual care concerns: No <Casie Linton PA-C - Last Filed: 12/05/24 19:26> Exam Narrative: GENERAL: Well-appearing, well-nourished, and in no acute distress. HEAD: Normocephalic, atraumatic. EYES: EOMI. ENT: Nares clear, no rhinorrhea or epistaxis. Mucous membranes moist. Oropharynx without tonsillar hypertrophy exudate or other lesions. CHEST: No respiratory distress. Lung sounds diminished with diffuse wheezing. No rales or rhonchi HEART: Regular rate and rhythm. No murmur heard. Normal peripheral pulses. EXTREMITIES: Normal range of motion. No edema. SKIN: Warm, dry, no rash. NEURO: No focal deficits. Alert and oriented x3. PSYCH: Normal mood and affect <Casie Linton PA-C - Last Filed: 12/05/24 19:26> Course Course Emergency Course: patient updated on her workup. Patient is still diffusely wheezing, diminished. Will consult hospitalist for admission <Casie Linton PA-C - Last Filed: 12/05/24 19:26> [address]OVING COURT REPORTER/PA Physician Supervision Patient admitted to the hospital. I was available for consultation while she was in the ED but did not personally examine her and was not directly involved in her care. Chart is reviewed asynchronously. <Linda De Leon MD - Last Filed: 12/06/24 14:56> Consultations Consultation #1: Spoke with hospitalist about patient and workup who accepts admission <Casie Linton PA-C - Last Filed: 12/05/24 19:26> Date: 12/05/24 <Casie Linton PA-C - Last Filed: 12/05/24 19:26> Vital Signs Vital signs: Vital Signs Temperature 98.0 F 12/05/24 13:24 Pulse Rate 90 12/05/24 13:24 Respiratory Rate 28 H 12/05/24 13:24 Blood Pressure 112/57 L 12/05/24 13:24 Pulse Oximetry 99 12/05/24 13:24 Oxygen Delivery Nasal Cannula 12/05/24 13:24 Oxygen Flow Rate 4 12/05/24 13:24 Temperature 97.7 F 12/06/24 14:00 Pulse Rate 89 12/06/24 14:00 Respiratory Rate 18 12/06/24 14:00 Blood Pressure 123/52 L 12/06/24 14:00 Pulse Oximetry 92 12/06/24 14:00 Oxygen Delivery Nasal Cannula 12/06/24 08:00 Oxygen Flow Rate 2 12/06/24 08:00 <Casie Linton PA-C - Last Filed: 12/05/24 19:26> Vital Signs Temperature 98.0 F 12/05/24 13:24 Pulse Rate 90 12/05/24 13:24 Respiratory Rate 28 H 12/05/24 13:24 Blood Pressure 112/57 L 12/05/24 13:24 Pulse Oximetry 99 12/05/24 13:24 Oxygen Delivery Nasal Cannula 12/05/24 13:24 Oxygen Flow Rate 4 12/05/24 13:24 Temperature 97.7 F 12/06/24 14:00 Pulse Rate 89 12/06/24 14:00 Respiratory Rate 18 12/06/24 14:00 Blood Pressure 123/52 L 12/06/24 14:00 Pulse Oximetry 92 12/06/24 14:00 Oxygen Delivery Nasal Cannula 12/06/24 08:00 Oxygen Flow Rate 2 12/06/24 08:00 <Linda De Leon MD - Last Filed: 12/06/24 14:56> MDM - SOB/Dyspnea MDM Narrative Medical decision making narrative: Patient presents the emergency department for dyspnea. History of COPD, chronically wears oxygen via nasal cannula. Reporting increasing oxygen requirements, sputum production, shortness of breath. She is afebrile and nontoxic appearing. Patient is quite diminished with diffuse wheezing upon arrival. Given nebulizer treatment, Solu-Medrol, magnesium. Cbc without leukocytosis. Metabolic panel with normal kidney function. Chest x-ray showing atelectasis. Influenza, RSV and COVID screens are negative. BNP is not concerningly elevated. Baseline troponin is negative. patient updated on her workup. Patient is still diffusely wheezing, diminished. Patient will be admitted for further management <Casie Linton PA-C - Last Filed: 12/05/24 19:26> Differential Diagnosis Differential diagnosis: Likely acute exacerbation of chronic obstructive airways disease, congestive heart failure and community acquired pneumonia <Casie Linton PA-C - Last Filed: 12/05/24 19:26> Lab Data Attestation: I reviewed the patient's lab results. <Casie Linton PA-C - Last Filed: 12/05/24 19:26> Result diagrams: 12/05/24 15:00 12/05/24 15:00 <Casie Linton PA-C - Last Filed: 12/05/24 19:26> Labs: Lab Results 12/05/24 12/05/24 Range/Units 15:00 15:46 WBC 9.2 (4.5-10.0) K/mm3 RBC 4.46 (4.2-5.4) M/mm3 Hgb 13.2 (12.0-15.0) g/dL Hct 42.5 (37.0-47.0) % MCV 95.3 (80-100) fl MCH 29.6 (26-34) pg MCHC 31.1 L (32-36) g/dl RDW 14.1 (11.5-14.5) % Plt Count 321 (150-375) k/mm3 MPV 9.2 (7.4-10.4) fl Immature Gran % (Auto) 0.3 (0-0.5) % Neut % (Auto) 75.2 H (45.5-73.1) % Lymph % (Auto) 15.4 L (18.3-44.2) % Walker % (Auto) 3.8 (2.6-8.5) % Eos % (Auto) 4.9 H (0-4.4) % Baso % (Auto) 0.4 (0.2-1.2) % Lymph # (Auto) 1.41 (0.9-3.2) K/mm3 Walker # (Auto) 0.4 (0.1-0.6) K/mm3 Eos # (Auto) 0.5 H (0-0.3) K/mm3 Baso # (Auto) 0.0 (0.0-0.1) K/mm3 Abs Immat Gran (auto) 0.03 (0.00-0.031) K/mm3 Absolute Neuts (auto) 6.9 H (1.3-6.7) K/mm3 Absolute Nucleated RBC 0.000 (0.0-0.012) K/mm3 Nucleated RBC % 0.0 (0.0-0.2) % PT 13.6 (11.1-14.7) Seconds INR 1.0 APTT 32.5 (22.3-36.8) Seconds Sodium 134 L (137-145) mmol/L Potassium 4.7 (3.4-5.0) mmol/L Chloride 95 L (98-107) mmol/L Carbon Dioxide 37 H (22-30) mmol/L Anion Gap 2 L (4-12) mmol/L BUN 13 (7-17) mg/dL Creatinine 0.67 L (0.7-1.0) mg/dL Estim Creat Clear Calc 78 ml/min Estimated GFR > 60 (59 - ) Glucose 88 (65-110) mg/dL Calcium 9.7 (8.4-10.2) mg/dL Magnesium 2.2 (1.6-2.3) mg/dL Total Bilirubin 0.3 (0.2-1.3) mg/dL AST 24 (14-36) U/L ALT 15 (6-35) U/L Alkaline Phosphatase 134 H (38-126) U/L Troponin I < 0.012 (0.000-0.034) ng/mL NT-Pro-B Natriuret Pep 367 H (19.9-100) pg/mL Total Protein 7.3 (6.3-8.2) g/dL Albumin 3.9 (3.5-5.1) g/dL Influenza A (RT-PCR) Negative (Negative) Influenza B (RT-PCR) Negative (Negative) RSV (RT-PCR) Negative (Negative) SARS-CoV-2 RNA (RT-PCR) Negative (Negative) <Casie Linton PA-C - Last Filed: 12/05/24 19:26> Lab Results 12/05/24 12/05/24 Range/Units 15:00 15:46 WBC 9.2 (4.5-10.0) K/mm3 RBC 4.46 (4.2-5.4) M/mm3 Hgb 13.2 (12.0-15.0) g/dL Hct 42.5 (37.0-47.0) % MCV 95.3 (80-100) fl MCH 29.6 (26-34) pg MCHC 31.1 L (32-36) g/dl RDW 14.1 (11.5-14.5) % Plt Count 321 (150-375) k/mm3 MPV 9.2 (7.4-10.4) fl Immature Gran % (Auto) 0.3 (0-0.5) % Neut % (Auto) 75.2 H (45.5-73.1) % Lymph % (Auto) 15.4 L (18.3-44.2) % Walker % (Auto) 3.8 (2.6-8.5) % Eos % (Auto) 4.9 H (0-4.4) % Baso % (Auto) 0.4 (0.2-1.2) % Lymph # (Auto) 1.41 (0.9-3.2) K/mm3 Walker # (Auto) 0.4 (0.1-0.6) K/mm3 Eos # (Auto) 0.5 H (0-0.3) K/mm3 Baso # (Auto) 0.0 (0.0-0.1) K/mm3 Abs Immat Gran (auto) 0.03 (0.00-0.031) K/mm3 Absolute Neuts (auto) 6.9 H (1.3-6.7) K/mm3 Absolute Nucleated RBC 0.000 (0.0-0.012) K/mm3 Nucleated RBC % 0.0 (0.0-0.2) % PT 13.6 (11.1-14.7) Seconds INR 1.0 APTT 32.5 (22.3-36.8) Seconds Sodium 134 L (137-145) mmol/L Potassium 4.7 (3.4-5.0) mmol/L Chloride 95 L (98-107) mmol/L Carbon Dioxide 37 H (22-30) mmol/L Anion Gap 2 L (4-12) mmol/L BUN 13 (7-17) mg/dL Creatinine 0.67 L (0.7-1.0) mg/dL Estim Creat Clear Calc 78 ml/min Estimated GFR > 60 (59 - ) Glucose 88 (65-110) mg/dL Calcium 9.7 (8.4-10.2) mg/dL Magnesium 2.2 (1.6-2.3) mg/dL Total Bilirubin 0.3 (0.2-1.3) mg/dL AST 24 (14-36) U/L ALT 15 (6-35) U/L Alkaline Phosphatase 134 H (38-126) U/L Troponin I < 0.012 (0.000-0.034) ng/mL NT-Pro-B Natriuret Pep 367 H (19.9-100) pg/mL Total Protein 7.3 (6.3-8.2) g/dL Albumin 3.9 (3.5-5.1) g/dL Influenza A (RT-PCR) Negative (Negative) Influenza B (RT-PCR) Negative (Negative) RSV (RT-PCR) Negative (Negative) SARS-CoV-2 RNA (RT-PCR) Negative (Negative) <Linda De Leon MD - Last Filed: 12/06/24 14:56> ABG Data ABG results: 12/05/24 14:50 VBG pH 7.359 VBG pCO2 62.4 H VBG pO2 32.1 L VBG HCO3 34.4 H O2 Delivery Device Nasal cannula FiO2 28 <Casie Linton PA-C - Last Filed: 12/05/24 19:26> 12/05/24 14:50 VBG pH 7.359 VBG pCO2 62.4 H VBG pO2 32.1 L VBG HCO3 34.4 H O2 Delivery Device Nasal cannula FiO2 28 <Linda De Leon MD - Last Filed: 12/06/24 14:56> Imaging Data Radiologist's impression: ITS Impressions Chest X-Ray 12/05/24 16:49 IMPRESSION: 1. Mild linear discoid atelectasis/scarring at the bilateral lung bases. <Casie Linton PA-C - Last Filed: 12/05/24 19:26> Critical Care Time Critical Care Time Critical Care Time: No <SHELIA Lazaro Last Filed: 12/05/24 19:26> Discharge Plan Discharge Clinical Impression: COPD exacerbation <SHELIA Lazaro Last Filed: 12/05/24 19:26> Patient Disposition: Still a Patient <SHELIA Lazaro Last Filed: 12/05/24 19:26> Condition: Stable <SHELIA Lazaro Last Filed: 12/05/24 19:26>
[2024-12-05 15:19] LABS: Alanine Aminotransferase 15 U/L (6-35); Albumin Level 3.9 g/dL (3.5-5.1); Alkaline Phosphatase 134 U/L (38-126); Anion Gap 2 mmol/L (4-12); Aspartate Amino Transferase 24 U/L (14-36); Bilirubin,Total 0.3 mg/dL (0.2-1.3); Blood Urea Nitrogen 13 mg/dL (7-17); Calcium 9.7 mg/dL (8.4-10.2); Carbon Dioxide 37 mmol/L (22-30); Chloride 95 mmol/L (98-107); Estimated CRCL calculation 78 ml/min; Estimated Glomerular Filt Rate > 60; Glucose 88 mg/dL (65-110); Magnesium 2.2 mg/dL (1.6-2.3); Potassium 4.7 mmol/L (3.4-5.0); Sodium 134 mmol/L (137-145); Total Protein 7.3 g/dL (6.3-8.2)
[2024-12-05 15:31] LABS: NT Pro B Type Natriuretic Pept 367 pg/mL (19.9-100); Troponin I < 0.012 ng/mL (0.000-0.034)
[2024-12-05 16:10] LABS: INR 1.0; Prothrombin Time 13.6 Seconds (11.1-14.7)
[2024-12-05 16:11] LABS: Partial Thromboplastin Time 32.5 Seconds (22.3-36.8)
[2024-12-05] MEDS: MAGNESIUM SULF 2 GM/WATER 50ML 2 GM/50 ML BAG IVPB (16:31)
[2024-12-05 16:36] LABS: Influenza A QL RT-PCR Negative (Negative); Influenza B QL RT-PCR Negative (Negative); RSV RNA, RT-PCR Negative (Negative); SARS-CoV-2 RNA PCR Negative (Negative)
[2024-12-05] MEDS: ALBUTEROL SULFATE NEB 2.5 MG/3 ML INH 15 MG INHALATION (17:12)
[2024-12-05] MEDS: IPRATROPIUM BR 0.02% INH SOLN 0.5 MG/2.5 ML VIAL 1.5 MG INHALATION (17:14)
[2024-12-05] MEDS: levoFLOXacin 750 MG/D5W 150 ML 750 MG/150 ML BAG 100 MG IVPB (18:30)
--- NOTE | 2024-12-05 18:31 | P.HP_ITS ---
H&P: HPI History of Present Illness Date/Time: 12/05/24 18:31 Chief Complaint: Shortness of breath Narrative: 64-year-old female past medical history of COPD on 2 L home oxygen, hypertension, anxiety and depression presents the hospital with shortness of breath. Patient states that she does not think her portable oxygen is working. She states that she was in the car with her son going to the store when she b ecame extremely short of breath and had to call EMS. She states that she cannot breathe. She received several DuoNebs in the emergency room with improvement in breathing however she states she does not think it helps. She is on on her home O2 requirements. Patient also complains of a infected bursa on her right elbow that is draining. She denies pain or foul smell. She denies fevers chills n ausea or vomiting. Lab work in the ED shows sodium of 134, chloride 95, carbon dioxide 37, anion gap 2, creatinine of 0.67, alkaline phos of 134, BNP of 367, chest x-ray shows Mild linear discoid atelectasis/scarring at the bilateral lung bases. Patient is being treated for COPD exacerbation S started on levofloxacin, Solu-Medrol and DuoNebs Review of Systems Review of Systems: 12 systems were reviewed and are negativ e except for as per HPI. [facility] Past Medical History Medical History Hypertension Right hand dominant COPD (chronic obstructive pulmonary disease) RAISSA (obstructive sleep apnea) Screening for hyperlipidemia Nodule of left lung Major depressive disorder, recurrent, unspecified Essential hypertension Asthma with COPD (chronic obstructive pulmonary disease) Anxiety disorder, unspecified Family History Family History Mother Diabetes mellitus Heart attack Hypertension Father Heart attack Hypertension Smoker Social History Social History Smoking packs per day: 1 Smoking cigarettes per day: 20.0 Years smoked: 40 Smoking pack-years: 40.00 Smoking status: Former smoker Tobacco type: cigarettes Smoking end date: 12/31/23 Alcohol intake: never Substance use: never Substance use type: does not use Do You Feel Safe in your Home?: Yes Lack of Transportation: No Lack of Food: Never True Current Housing: I Have Housing Concerned About Future Housing: No Difficulty Paying Gas/Electric Bills: No Difficulty Paying for Meds: No Currently Unemployed: No Education: High School Diploma/GED Difficulty w/ Childcare or Family Care: No Spiritual care concerns: No Meds Home Medications and Allergies Home Medications ?Medication ?Instructions ?Recorded ?Confirmed ?Type albuterol sulfate 90 mcg/actuation 2 inhalation inhala tion Q4H #8.5 02/17/19 12/05/24 Rx aerosol inhaler (ProAir HFA) grams budesonide-formoterol HFA 160 2 puff inhalation BID 12/05/24 History mcg-4.5 mcg/actuation aerosol inhaler (Symbicort) losartan 100 mg tablet 100 mg PO DAILY 06/13/2209/23 History metoprolol tartrate 50 mg tablet 50 mg PO BID 06/13/22 12/05/24 History nortriptyline 50 mg capsule 50 mg PO DAILY 06/13/22 History semaglutide 0.25 mg or 0.5 mg (2 1 mg subcut WEEKLY 12/05/24 History mg/3 mL) subcutaneous pen injector (Ozempic) tiotropium bromide 2.5 2 puff inhalation DAILY 1 mo nth #4 11/15/23 12/05/24 Rx mcg/actuation mist for inhalation grams (Spiriva Respimat) nicotine 21 mg/24 hr daily 1 patch transdermal DAILY # 30 ea 12/20/23 12/05/24 Rx transdermal patch buspirone 5 mg tablet See Rx Instructions .Route 0 08/07/24 12/05/24 Rx .COMPLEX #60 tabs ibuprofen 600 mg tablet 600 mg PO Q8H PRN pain 12/0512/05/24 History Allergies Allergy/AdvReac Type Severity Reaction Status Date / Time sertraline Allergy Intermediate Itching Verified 12/05/24 13:21 Sulfa (Sulfonamide Allergy Unknown Unknown Verified 12/05/24 13:21 Antibiotics) Vital Signs Vital Signs - 24 hr 12/05/24 13:24 12/05/24 14:55 12/05/24 14:55 Temperature 98.0 F Pulse Rate 90 88 Respiratory Rate 28 H 20 Blood Pressure 112/57 L Pulse Oximetry 99 98 Oxygen Delivery Nasal Cannula Nasal Cannula Oxygen Flow Rate 4 2 12/05/24 17:12 Temperature Pulse Rate 82 Respiratory Rate 20 Blood Pressure Pulse Oximetry Oxygen Delivery Oxygen Flow Rate Exam Narrative: General: Chronically-ill HEENT: normocephalic, atraumatic. Mucous membranes moist. EOMI, PERRLA, bilateral sclera anicteric, no conjunctival injection. Neck supple without JVD, lymphadenopathy, or bruit. Respiratory: Extremely diminished with expiratory wheezes Cardiovascular: Regular rate and rhythm, normal S1-S2 upon ascultation. No murmurs, rubs, or clicks. PMI is nondisplaced, capillary refill less than 3 s econd. Abdomen: Obese Soft, round, no pulsatile masses, nondistended and nontender. No rebound, no guarding. No CVA tenderness, no hepatosplenomegaly. Bowel sounds present to all four quadrants. No high pitch or tinkling sounds, resonant to percussion. Extremities: No cyanosis, clubbing, or edema present. Pulses are palpable 2/2. Active ROM to all four extremities. Neuro: Alert and orientated x 4. PERRLA. Cranial nerves 2-12 intact without focal deficit. Skin: Warm, dry, and intact, without rash, erythema, or lesion. Psych: pleasant, cooperative, normal speech, normal affect, no hallucinations, no dysarthia H&P: Results Labs Labs: Short CBC 12/05/24 Range/Units 15:00 WBC 9.2 (4.5-10.0) K/mm3 Hgb 13.2 (12.0-15.0) g/dL Hct 42.5 (37.0-47.0) % Plt Count 321 (150-375) k/mm3 [facility] [place] 12/05/24 15:00 Sodium 134 L Potassium 4.7 Chloride 95 L Carbon Dioxide 37 H BUN 13 Creatinine 0.67 L Glucose 88 Calcium 9.7 Cardiac Enzymes 12/05/24 Range/Units 15:00 Troponin I < 0.012 (0.000-0.034) ng/mL Liver Function 12/05/24 Range/Units 15:00 Total Bilirubin 0.3 (0.2-1.3) mg/dL AST 24 (14-36) U/L ALT 15 (6-35) U/L Alkaline Phosphatase 134 H (38-126) U/L Albumin 3.9 (3.5-5.1) g/dL Assessment and Plan Assessment and plan (1) COPD exacerbation: Code(s): J44.1 - Chronic obstructive pulmonary disease with (acute) exacerbation Status: Acute Assessment and Plan: Levofloxacin Solu-Medrol x1 followed by daily prednisone DuoNeb Guaifenesin (2) Hypomagnesemia: Code(s): E83.42 - Hypomagnesemia Status: Acute Assessment and Plan: Replete as needed Daily BMP (3) Anxiety: Code(s): F41.9 - Anxiety disorder, unspecified Status: Acute Assessment and Plan: Continue BusPar (4) Hypertension: Code(s): I10 - Essential (primary) hypertension Status: Acute Assessment and Plan: Continue Cozaar and metoprolol Quality VTE Prophylaxis VTE prophylaxis: mechanical ordered and pharmacologic ordered Hospitalist [facility] Advance Care Plan I have confirmed that the patient's Advanced Care Plan is present, code status is documented, or surrogate decision maker is listed in patient medical record.: Yes Medication Reconciliation I have utilized all available resources to obtain, update and review the patients current medications (includes all prescriptions, OTC, herbals, cannabis, and nutritional supplements).: Yes
--- NOTE | 2024-12-05 19:24 | ADMGEN ---
This patient, Sherri Ramirez, was admitted to Medical Room 259-. Patient/family oriented to hospital policies and general routines including ID bracelet, bed and alarms, visiting hours, pain management, procedures, bathroom and other care routines, personal items, smoking policy, room service/diet, and visiting hours. Information on how to activate the Rapid Response Team has been discussed. Patient/Family are encouraged to report perceived risks to care and to ask questions if they do not understand what they are told or what they should do.
[2024-12-05] MEDS: IBUPROFEN 600 MG TABLET PO (22:19)
[2024-12-06] VITALS (18 sets, daily range): BP systolic 122–135; BP diastolic 52–92; PULSE 83–114; RESP 16–24; TEMP 36.5–36.9; O2SAT 91–99
[2024-12-06] MEDS: IPRATROPIUM 0.5 MG/ALBUTEROL SULFATE 2.5 MG AMPUL.NEB 3 ML INHALATION ×4 (02:37→19:37)
[2024-12-06] MEDS: FLUTICASONE/SALMETEROL 115-21 MCG INHALER 1 PUFF 2 PUFF INHALATION ×2 (07:46→19:36)
[2024-12-06] MEDS: UMECLIDINIUM BROMIDE 62.5 MCG ELLIPTA 1 PUFF INHALATION (07:47)
[2024-12-06] MEDS: ENOXAPARIN 40 MG/0.4 ML SYRINGE SUB-Q (09:11)
[2024-12-06] MEDS: METOPROLOL TARTRATE 50 MG TAB PO ×2 (09:11→20:11)
[2024-12-06] MEDS: LOSARTAN POTASSIUM 100 MG TABLET PO (09:13)
[2024-12-06] MEDS: NICOTINE (*PBKC) 21 MG PATCH 1 PATCH TRANSDERM (09:14)
[2024-12-06] MEDS: NORTRIPTYLINE HCL 25 MG CAPSULE 50 MG PO (09:14)
[2024-12-06] MEDS: PANTOPRAZOLE 40 MG TABLET PO (10:45)
--- NOTE | 2024-12-06 11:25 | P.PNIM_ITS ---
Progress Note: A&P Assessment and Plan (1) COPD exacerbation: Code(s): J44.1 - Chronic obstructive pulmonary disease with (acute) exacerbation Status: Acute Assessment and Plan: Levofloxacin Contineu Prednisone DuoNeb Guaifenesin Currently at baseline oxygen (2) Hypomagnesemia: Code(s): E83.42 - Hypomagnesemia Status: Acute Assessment and Plan: Replete as needed Daily BMP (3) Anxiety: Code(s): F41.9 - Anxiety disorder, unspecified Status: Acute Assessment and Plan: Continue BusPar (4) Hypertension: Code(s): I10 - Essential (primary) hypertension Status: Acute Assessment and Plan: Continue Cozaar and metoprolol Plan DVT prophylaxis on Sq Lovenox Subjective Date/time seen: 12/06/24 11:25 Interval history: Comfortable at bedside noted much improved since admission Review of Systems Review of Systems: 12 systems were reviewed and are negativ e except for as per HPI. Exam Narrative: General: Chronically-ill HEENT: normocephalic, atraumatic. Mucous membranes moist. EOMI, PERRLA, bilateral sclera anicteric, no conjunctival injection. Neck supple without JVD, lymphadenopathy, or bruit. Respiratory: Extremely diminished with expiratory wheezes Cardiovascular: Regular rate and rhythm, normal S1-S2 upon ascultation. No murmurs, rubs, or clicks. PMI is nondisplaced, capillary refill less than 3 second. Abdomen: Obese Soft, round, no pulsatile masses, nondistended and nontender. No rebound, no guarding. No CVA tenderness, no hepatosplenomegaly. Bowel sounds present to all four quadrants. No high pitch or tinkling sounds, resonant to percussion. Extremities: No cyanosis, clubbing, or edema present. Pulses are palpable 2/2. Active ROM to all four extremities. Neuro: Alert and orientated x 4. PERRLA. Cranial nerves 2-12 intact without focal deficit. Skin: Warm, dry, and intact, without rash, erythema, or lesion. Psych: pleasant, cooperative, normal speech, normal affect, no hallucinations, no dysarthia Objective Data Vital Signs Vital Signs: Vital Signs - 24 hr 12/05/24 13:24 12/05/24 14:55 12/05/24 14:55 Temperature 98.0 F Pulse Rate 90 88 Respiratory Rate 28 H 20 Blood Pressure 112/57 L Pulse Oximetry 99 98 Oxygen Delivery Nasal Cannula Nasal Cannula Oxygen Flow Rate 4 2 12/05/24 15:00 12/05/24 16:00 12/05/24 17:00 Temperature 97.8 F 97.8 F 97.9 F Pulse Rate 80 82 82 Respiratory Rate 18 20 16 Blood Pressure 146/96 H 115/95 H 113/80 Pulse Oximetry 98 98 99 Oxygen Delivery Oxygen Flow Rate 12/05/24 17:12 12/05/24 18:00 12/05/24 20:00 Temperature 97.8 F Pulse Rate 82 83 Respiratory Rate 20 16 Blood Pressure 122/97 H Pulse Oximetry 99 97 Oxygen Delivery Nasal Cannula Oxygen Flow Rate 2 12/05/24 21:00 12/05/24 21:03 12/05/24 21:05 Temperature Pulse Rate 87 89 Respiratory Rate 20 20 Blood Pressure Pulse Oximetry 96 Oxygen Delivery Nasal Cannula Oxygen Flow Rate 2 12/05/24 21:08 12/06/24 00:00 12/06/24 02:37 Temperature 98.0 F 98.5 F Pulse Rate 90 96 83 Respiratory Rate 18 18 18 Blood Pressure 136/99 H 135/77 Pulse Oximetry 97 97 Oxygen Delivery Oxygen Flow Rate 12/06/24 02:42 12/06/24 04:00 12/06/24 09:11 Temperature 98.3 F Pulse Rate 84 102 H 114 H Respiratory Rate 18 18 Blood Pressure 122/79 Pulse Oximetry 94 Oxygen Delivery Oxygen Flow Rate Intake/Output Intake/Output: Intake & Output 12/03/24 12/04/24 12/05/24 12/06/24 23:59 23:59 23:59 23:59 Intake Total 200 120 Balance 200 120 Meds/Results Medications: Active Medications Generic Name Dose Route Start Last Admin Trade Name Freq PRN Reason Stop Dose Admin Albuterol/Ipratropium 3 ml 12/05/24 20:00 12/06/24 07:30 Ipratropium 0.5 Mg/Albuterol Sulfate 2.5 Mg Ampul.Neb 3 Ml INHALATION 3 ml Q6HRT ARGELIA Administration Buspirone HCl 5 mg 12/06/24 09:00 12/06/24 09:13 Buspirone Hcl 5 Mg Tablet BY MOUTH 5 mg BID ARGELIA Administration Enoxaparin Sodium 40 mg 12/06/24 09:00 12/06/24 09:11 Enoxaparin 40 Mg/0.4 Ml Syringe SUB-Q 40 mg DAILY ARGELIA Administration Levofloxacin/Dextrose 750 mg in 150 mls @ 100 mls/hr 12/06/24 18:00 Levaquin 750 Mg/D5w 150 Ml IVPB Q24H ARGELIA Ibuprofen 600 mg 12/05/24 20:45 12/05/24 22:19 Ibuprofen 600 Mg Tablet PO 600 mg Q8H PRN Administration Pain 1-3 Losartan Potassium 100 mg 12/06/24 09:00 12/06/24 09:13 Losartan Potassium 100 Mg Tablet PO 100 mg DAILY ARGELIA Administration Metoprolol Tartrate 50 mg 12/06/24 09:00 12/06/24 09:11 Metoprolol Tartrate 50 Mg Tab PO 50 mg Q12HR ARGELIA Administration Nicotine 1 patch 12/06/24 09:00 12/06/24 09:14 Nicotine (*Pbkc) 21 Mg Patch TRANSDERM 1 patch DAILY ARGELIA Administration Nortriptyline HCl 50 mg 12/06/24 09:00 12/06/24 09:14 Nortriptyline Hcl 25 Mg Capsule PO 50 mg DAILY ARGELIA Administration Pantoprazole Sodium 40 mg 12/07/24 09:00 Pantoprazole 40 Mg Tablet PO QAM [facility] Prednisone 40 mg 12/06/24 08:00 12/06/24 09:14 Prednisone 20 Mg Tablet PO 12/09/24 08:01 40 mg DAILY@0800 ARGELIA Administration Fluticasone/Salmeterol 2 puff 12/06/24 08:00 12/06/24 07:46 Fluticasone/Salmeterol 115-21 Mcg Inhaler 1 Puff INHALATION 2 puff Q12HRT ARGELIA Administration Umeclidinium [place] 1 puff 12/06/24 08:00 12/06/24 07:47 Umeclidinium [place] 62.5 Mcg Ellipta INHALATION 1 puff DAILYRT ARGELIA Administration Radiology Results: ITS Impressions Chest X-Ray 12/05/24 16:49 IMPRESSION: 1. Mild linear discoid atelectasis/scarring at the bilateral lung bases. Labs Labs: Laboratory Results - last 24 hr 12/05/24 12/05/24 12/05/24 14:50 15:00 15:46 WBC 9.2 RBC 4.46 Hgb 13.2 Hct 42.5 MCV 95.3 MCH 29.6 MCHC 31.1 L RDW 14.1 Plt Count 321 MPV 9.2 Immature Gran % (Auto) 0.3 Neut % (Auto) 75.2 H Lymph % (Auto) 15.4 L [place] % (Auto) 3.8 Eos % (Auto) 4.9 H Baso % (Auto) 0.4 Lymph # (Auto) 1.41 [place] # (Auto) 0.4 Eos # (Auto) 0.5 H Baso # (Auto) 0.0 Abs Immat Gran (auto) 0.03 Absolute Neuts (auto) 6.9 H Absolute Nucleated RBC 0.000 Nucleated RBC % 0.0 PT 13.6 INR 1.0 APTT 32.5 VBG pH 7.359 VBG pCO2 62.4 H VBG pO2 32.1 L VBG HCO3 34.4 H O2 Delivery Device Nasal cannula FiO2 28 Sodium 134 L Potassium 4.7 Chloride 95 L Carbon Dioxide 37 H Anion Gap 2 L BUN 13 Creatinine 0.67 L Estim Creat Clear Calc 78 Estimated GFR > 60 Glucose 88 POC Capillary Glucose Calcium 9.7 Magnesium 2.2 Total Bilirubin 0.3 AST 24 ALT 15 Alkaline Phosphatase 134 H Troponin I < 0.012 NT-Pro-B Natriuret Pep 367 H Total Protein 7.3 Albumin 3.9 Influenza A (RT-PCR) Negative Influenza B (RT-PCR) Negative RSV (RT-PCR) Negative SARS-CoV-2 RNA (RT-PCR) Negative 12/05/24 12/06/24 12/06/24 19:36 05:48 07:39 WBC RBC Hgb Hct MCV MCH MCHC RDW Plt Count MPV Immature Gran % (Auto) Neut % (Auto) Lymph % (Auto) [place] % (Auto) Eos % (Auto) Baso % (Auto) Lymph # (Auto) [place] # (Auto) Eos # (Auto) Baso # (Auto) Abs Immat Gran (auto) Absolute Neuts (auto) Absolute Nucleated RBC Nucleated RBC % PT INR APTT VBG pH VBG pCO2 VBG pO2 VBG HCO3 O2 Delivery Device FiO2 Sodium Potassium Chloride Carbon Dioxide Anion Gap BUN Creatinine Estim Creat Clear Calc Estimated GFR Glucose POC Capillary Glucose 93 89 75 Calcium Magnesium Total Bilirubin AST ALT Alkaline Phosphatase Troponin I NT-Pro-B Natriuret Pep Total Protein Albumin Influenza A (RT-PCR) Influenza B (RT-PCR) RSV (RT-PCR) SARS-CoV-2 RNA (RT-PCR) Quality VTE Prophylaxis VTE prophylaxis: mechanical ordered and pharmacologic ordered
[2024-12-06] MEDS: levoFLOXacin 750 MG/D5W 150 ML 750 MG/150 ML BAG 100 MG IVPB (17:10)
[2024-12-07] VITALS (11 sets, daily range): BP systolic 92–117; BP diastolic 64–86; PULSE 52–117; RESP 18–20; TEMP 36.4; O2SAT 91–100
[2024-12-07] MEDS: IPRATROPIUM 0.5 MG/ALBUTEROL SULFATE 2.5 MG AMPUL.NEB 3 ML INHALATION ×3 (01:46→15:33)
[2024-12-07 04:52] LABS: Hematocrit 39.8 % (37.0-47.0); Hemoglobin 12.6 g/dL (12.0-15.0); Immature Granulocyte Percent A 0.4 % (0-0.5); Lymphocytes Absolute Auto 2.26 K/mm3 (0.9-3.2); Mean Corpuscular HGB Conc 31.7 g/dl (32-36); Mean Corpuscular Hemoglobin 29.8 pg (26-34); Mean Corpuscular Volume 94.1 fl (80-100); Nucleated Red Blood Cells Absolute Auto 0.000 K/mm3 (0.0-0.012); Nucleated Red Blood Cells Perc 0.0 % (0.0-0.2); Platelet Count Result 323 k/mm3 (150-375); Red Blood Count 4.23 M/mm3 (4.2-5.4); White Blood Count 10.1 K/mm3 (4.5-10.0)
[2024-12-07 05:04] LABS: Alanine Aminotransferase 13 U/L (6-35); Albumin Level 3.7 g/dL (3.5-5.1); Alkaline Phosphatase 117 U/L (38-126); Anion Gap 4 mmol/L (4-12); Aspartate Amino Transferase 20 U/L (14-36); Bilirubin,Total 0.2 mg/dL (0.2-1.3); Blood Urea Nitrogen 15 mg/dL (7-17); Calcium 9.6 mg/dL (8.4-10.2); Carbon Dioxide 35 mmol/L (22-30); Chloride 94 mmol/L (98-107); Estimated CRCL calculation 67 ml/min; Estimated Glomerular Filt Rate > 60; Glucose 94 mg/dL (65-110); Magnesium 2.1 mg/dL (1.6-2.3); Potassium 3.9 mmol/L (3.4-5.0); Sodium 133 mmol/L (137-145); Total Protein 6.9 g/dL (6.3-8.2)
[2024-12-07] MEDS: UMECLIDINIUM BROMIDE 62.5 MCG ELLIPTA 1 PUFF INHALATION (08:29)
[2024-12-07] MEDS: FLUTICASONE/SALMETEROL 115-21 MCG INHALER 1 PUFF 2 PUFF INHALATION (08:29)
[2024-12-07] MEDS: NORTRIPTYLINE HCL 25 MG CAPSULE 50 MG PO (10:33)
[2024-12-07] MEDS: METOPROLOL TARTRATE 50 MG TAB PO (10:34)
[2024-12-07] MEDS: PANTOPRAZOLE 40 MG TABLET PO (10:37)
[2024-12-07] MEDS: ENOXAPARIN 40 MG/0.4 ML SYRINGE SUB-Q (10:37)
[2024-12-07] MEDS: LOSARTAN POTASSIUM 100 MG TABLET PO (10:37)
[2024-12-07] MEDS: NICOTINE (*PBKC) 21 MG PATCH 1 PATCH TRANSDERM (10:38)
--- NOTE | 2024-12-07 10:41 | P.CDI_ITS ---
CDI Query Clarification Request Patient with a BMI of 42.3 please provide a diagnosis to accompany this finding: * Overweight * Obesity * Morbid Obesity * Other/Unknown <Mima Wilkes RN - Last Filed: 12/07/24 10:42> Clarified Diagnosis Clarified Diagnosis: Morbid Obesity <Jaylon Alonso MD - Last Filed: 12/07/24 12:20>
[2024-12-07 11:11] LABS: Liters per Minute 2.0 LPM
--- NOTE | 2024-12-07 12:26 | PM.DS ---
DS: Admitting Diagnosis Discharge Date 12/07/24 Admitting Diagnosis Shortness of breath DS: Summary Hospital Course Hospital Course: 64-year-old female past medical history of COPD on 2 L home oxygen, hypertension, anxiety and depression presents the hospital with shortness of breath. Lab work in the ED shows sodium of 134, chloride 95, carbon dioxide 37, anion gap 2, creatinine of 0.67, alkaline phos of 134, BNP of 367, chest x-ray shows Mild linear discoid atelectasis/scarring at the bilateral lung bases. Patient is being treated for COPD exacerbation S started on levofloxacin, Solu-Medrol and DuoNebs. Patient was placed continued on Duoneb treatment and pO prednisone along with Levaquin. Patient improved markedly and on baseline oxygen. Discharged today on 2 more days of Azithromycin and Prednisone. Patient will follow up with PCP in 3-5 days Time Spent with Patient Time attestation: Total time spent providing and/or coordinating discharge services: DS: Data Data Completed and Pending Labs on day of discharge: Labs from last 24 hours 12/07/24 12/07/24 12/07/24 11:48 08:08 04:27 WBC 10.1 H RBC 4.23 Hgb 12.6 Hct 39.8 MCV 94.1 MCH 29.8 MCHC 31.7 L RDW 13.8 Plt Count 323 MPV 9.3 Immature Gran % (Auto) 0.4 Neut % (Auto) 68.9 Lymph % (Auto) 22.3 [place] % (Auto) 7.6 Eos % (Auto) 0.6 Baso % (Auto) 0.2 Lymph # (Auto) 2.26 [place] # (Auto) 0.8 H Eos # (Auto) 0.1 Baso # (Auto) 0.0 Abs Immat Gran (auto) 0.04 H Absolute Neuts (auto) 7.0 H Absolute Nucleated RBC 0.000 Nucleated RBC % 0.0 O2 Liters/Min Sodium 133 L Potassium 3.9 Chloride 94 L Carbon Dioxide 35 H Anion Gap 4 BUN 15 Creatinine 0.78 Estim Creat Clear Calc 67 Estimated GFR > 60 Glucose 94 POC Capillary Glucose 83 73 Calcium 9.6 Magnesium 2.1 Total Bilirubin 0.2 AST 20 ALT 13 Alkaline Phosphatase 117 Total Protein 6.9 Albumin 3.7 12/06/24 12/06/24 12/05/24 20:53 16:51 14:50 WBC RBC Hgb Hct MCV MCH MCHC RDW Plt Count MPV Immature Gran % (Auto) Neut % (Auto) Lymph % (Auto) [place] % (Auto) Eos % (Auto) Baso % (Auto) Lymph # (Auto) [place] # (Auto) Eos # (Auto) Baso # (Auto) Abs Immat Gran (auto) Absolute Neuts (auto) Absolute Nucleated RBC Nucleated RBC % O2 Liters/Min 2.0 Sodium Potassium Chloride Carbon Dioxide Anion Gap BUN Creatinine Estim Creat Clear Calc Estimated GFR Glucose POC Capillary Glucose 109 H 114 H Calcium Magnesium Total Bilirubin AST ALT Alkaline Phosphatase Total Protein Albumin Discharge Plan Discharge Attending physician on discharge: Jaylon Alonso Discharging Clinician: Jaylon Alonso Anticipated Discharge Date/Time: 12/07/24 12:21 Patient Disposition: Home Activity: as tolerated Diet: as tolerated Patient Instructions: Antibiotic Form Patient Language: Macedonian Stand Alone Forms: General Discharge Information Follow-up/Referrals: Adolfo,JARED Mcdonnell [Primary Care Provider, Family Practice] Referral Note: F/u with PCP in 3-5 days Discharge Medications: New azithromycin 250 mg tablet 250 mg PO DAILY 2 Days Qty: 2 0RF Rx Instructions: start on day 2 of therapy Combivent Respimat 20-100 mcg/actuation mist 1 puff inhalation QID PRN (Reason: shortness of breath or wheezing) Qty: 4 0RF Rx Instructions: space evenly during waking hours prednisone 20 mg Tablet 40 mg PO DAILY@0800 2 Days Qty: 4 0RF Continued Ozempic 0.25 mg or 0.5 mg (2 mg/3 mL) pen injector 1 mg subcut WEEKLY Rx Instructions: nicotine 21 mg/24 hr Patch 24 Hour 1 patch transdermal DAILY Qty: 30 0RF ibuprofen 600 mg tablet 600 mg PO Q8H PRN (Reason: pain) metoprolol tartrate 50 mg Tablet 50 mg PO BID losartan 100 mg Tablet 100 mg PO DAILY nortriptyline 50 mg Capsule 50 mg PO DAILY albuterol sulfate [ProAir HFA] 90 mcg/actuation HFA aerosol inhaler 2 inhalation INHALATION Q4H Qty: 8.5 6RF budesonide-formoterol [Symbicort] 160-4.5 mcg/actuation HFA aerosol inhaler 2 puff INHALATION BID Rx Instructions: 2 puffs inhalation twice daily in the morning and in the evening; Spiriva Respimat 2.5 mcg/actuation mist 2 puff inhalation DAILY 30 Days Qty: 4 5RF buspirone 5 mg tablet See Rx Instructions .ROUTE .COMPLEX Qty: 60 1RF Dose Instruction: TAKE 1 TABLET(5 MG) BY MOUTH TWICE DAILY FOR ANXIETY Rx Instructions: TAKE 1 TABLET(5 MG) BY MOUTH TWICE DAILY FOR ANXIETY Date of admission: 12/05/24 17:17 Primary Care Provider: AdolfoGretchen Admitting Provider: Jaylon Alonso Attending physician on admission: Jaylon Alonso Condition: Stable
== END 2024-12-07 15:45 | disposition home or self-care (01) | DRG 191 ==
LOC: ANHED 14:54 → ANH2MED 17:22
PROVIDERS: Admitting Provider Internal Medicine; Emergency Provider Physician Assistant; PCP Physician Assistant; Visit Provider Internal Medicine
DX: J44.1 Chronic obstructive pulmonary disease with (acute) exacerbation (principal); Z68.41 Body mass index [BMI] 40.0-44.9, adult; I10 Essential (primary) hypertension; G47.33 Obstructive sleep apnea (adult) (pediatric); R91.1 Solitary pulmonary nodule; F41.9 Anxiety disorder, unspecified; F32.A Depression, unspecified; E83.42 Hypomagnesemia; E66.01 Morbid (severe) obesity due to excess calories; Z20.822 Contact with and (suspected) exposure to COVID-19; Z99.81 Dependence on supplemental oxygen; Z87.891 Personal history of nicotine dependence
CPT/HCPCS: 36415; 71045; 80053; 82803; 82948; 83735; 83880; 84484; 85025; 85610; 85730; 87637; 94640; 96365; 96366; 96367; 96375; 99285; A9270; J1650; J1956; J2919; J3475; J7512

== ENCOUNTER 2025-01-20 15:11 | Outpatient (CLI) | payer MEDICARE, OTHER, SELFPAY ==
--- NOTE | ~2025-01-20 | XR_ITS ---
EXAMINATION: XR shoulder LT min 2V, 01/20/2025 15:32 CDT HISTORY: PAIN IN HIP;SHOULDER;KNEES;RADICULOPATHY C, L, T REGION COMPARISON: No comparisons available. Findings: No acute fracture or malalignment. Severe degenerative changes Soft tissues unremarkable. Impression: No acute fracture or malalignment. Reviewed, dictated and finalized at location P. Impression: No acute fracture or malalignment.
--- NOTE | ~2025-01-20 | XR_ITS ---
XR thoracic spine 3V Indication: PAIN IN HIP;SHOULDER;KNEES;RADICULOPATHY C, L, T REGION Comparison: None Findings: Moderate osteopenia. Moderate loss of vertebral height throughout. No acute fracture or subluxation. Moderate to severe loss of disc height throughout. Soft tissues unremarkable Impression: No acute abnormality. Reviewed, dictated and finalized at location P. Impression: No acute abnormality.
--- NOTE | ~2025-01-20 | XR_ITS ---
XR lumbar spine 2-3V Indication: PAIN IN HIP;SHOULDER;KNEES;RADICULOPATHY C, L, T REGION Comparison: None Findings: Moderate loss of vertebral height throughout. Grade 1 anterolisthesis L4 on L5, no acute fracture. Moderate to severe loss of disc height throughout most marked at L5-S1. Soft tissues unremarkable Impression: No acute abnormality. Reviewed, dictated and finalized at location P. Impression: No acute abnormality.
--- NOTE | ~2025-01-20 | XR_ITS ---
EXAMINATION: XR knee LT 3V, 01/20/2025 15:32 CDT HISTORY: PAIN IN HIP;SHOULDER;KNEES;RADICULOPATHY C, L, T REGION COMPARISON: No comparisons available. Findings: No acute fracture or malalignment. No significant degenerative changes. Soft tissues unremarkable. Impression: No acute fracture or malalignment. Reviewed, dictated and finalized at location P. Impression: No acute fracture or malalignment.
--- NOTE | ~2025-01-20 | XR_ITS ---
EXAMINATION: XR hip BI wo pelvis, 01/20/2025 15:32 CDT HISTORY: PAIN IN HIP;SHOULDER;KNEES;RADICULOPATHY C, L, T REGION COMPARISON: No comparisons available. Findings: No acute fracture or malalignment. No significant degenerative changes. Soft tissues unremarkable. Impression: No acute fracture or malalignment. Reviewed, dictated and finalized at location P. Impression: No acute fracture or malalignment.
--- NOTE | ~2025-01-20 | XR_ITS ---
EXAMINATION: XR shoulder RT min 2V, 01/20/2025 15:32 CDT HISTORY: PAIN IN HIP;SHOULDER;KNEES;RADICULOPATHY C, L, T REGION COMPARISON: No comparisons available. Findings: No acute fracture or malalignment. Severe degenerative changes Soft tissues unremarkable. Impression: No acute fracture or malalignment. Reviewed, dictated and finalized at location P. Impression: No acute fracture or malalignment.
--- NOTE | ~2025-01-20 | XR_ITS ---
EXAMINATION: XR knee RT 3V, 01/20/2025 15:32 CDT HISTORY: PAIN IN HIP;SHOULDER;KNEES;RADICULOPATHY C, L, T REGION COMPARISON: No comparisons available. Findings: No acute fracture or malalignment. Moderate tricompartmental degenerative changes, small effusion Soft tissues unremarkable. Impression: No acute fracture or malalignment. Reviewed, dictated and finalized at location P. Impression: No acute fracture or malalignment.
--- NOTE | ~2025-01-20 | XR_ITS ---
XR_CERV2-3V_CR Indication: PAIN IN HIP;SHOULDER;KNEES;RADICULOPATHY C, L, T REGION Comparison: None Findings: The vertebral heights are intact. No fracture or subluxation. Moderate loss of disc height throughout Soft tissues unremarkable Impression: No acute abnormality. Reviewed, dictated and finalized at location P. Impression: No acute abnormality.
--- OUTSIDE RECORDS SUMMARY | 2025-01-20 19:31 | XMS_ITS | Clinical Summary ---
Author Organization [facility] Barbara Dunbar Address [address] [place] [address] Care Team Providers Care Cia Agent Name Role Phone Unavailable Primary Care Provider [...] before the scan. 5 Tablet 4 Active tiotropium (SPIRIVA RESPIMAT) 2.5 mcg/actuation Mist Inhale 2 puffs every day by inhalation route. 4 Active Zepbound 7.5 mg/0.5 mL Pen Injector Inject 7.5 mg by subcutaneous injection every 7 days. Active Active Problems No known active problems Encounters Date Type Department Care Team Description 11/24/2024 Orders Only [facility] Oncology and Hematology - Chris [address] [place] [id number] Dakota Watkins MD 11/23/2024 Orders Only [facility] Oncology and Hematology [facility] [address] [place] [phone] Dakota Watkins MD 11/20/2024 10:15 AM CDT Office Visit [facility] Oncology and Hematology [facility] [address] [place] [phone] Dakota Watkins MD Malignant neoplasm of upper lobe of left lung (CMS/HCC) (Primary Dx) 11/20/2024 Orders Only [facility] Oncology and Hematology [facility] [address] Dakota Watkins MD 11/19/2024 Telephone [facility] Oncology and Hematology [facility] [address] [place] [phone] for appointment 11/03/2024 [...] st Contact Info) Description 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 [facility] Oncology and Hematology - Trevor [address] [facility] [address] [place] [address] Dakota Watkins MD [address] [facility] [address] [place] [address] Health Maintenance Due Date Last Done Comments Pre-Diabetes and Diabetes Screening 1961 HPV/Cotest (21-29) 1982 HPV/Cotest (30-65) 07/10/1991 BREAST CANCER SCREENING 2001 COLORECTAL SCREENING 2006 Colorectal Cancer Screening 2006 FIT-DNA Q 3 years 2006 FIT/FOBT Q 1 year 2006 Flex Sig/CT Colonography Q 5 years 2006 RSV VACCINE (60+ or ) (1 - Risk 50-74 years 1-dose series) 07/10/2011 ZOSTER VACCINE (1 of 2) 07/10/2011 INFLUENZA VACCINE (#1) 2024 01/13/2024, 2021 CERVICAL CANCER SCREENING 04/23/2027 PAP SMEAR 04/23/2027 04/23/2024 DTAP/TDAP/TD VACCINES (2 - Td or Tdap) 08/31/2027 Procedures Procedure Name Priority Date/Time Associated Diagnosis [...] the time period is included. Blood us aDkota Watkins MD CHEMISTRY ORDERABLES Final Resu lt * CBC WITH AUTODIFFERENTIAL (11/20/2024 12:08 PM CDT) Blood us Dakota Watkins MD HEMATOLOGY ORDERABLES Final Res ult from Last 3 Months Insurance MEDICAID [place] MEDICARE PART A AND B [employer]
--- OUTSIDE RECORDS SUMMARY | 2025-01-20 19:31 | XMS_ITS | Data Portability ---
Author Organization [facility] Kassandra Mathews Address [address] [place] [address] Care Team Providers Care Paper Inspector Name Role Phone MARK CASEY Primary Care Provider Assessment Encounter Date Assessment Date Assessment LastModified by Organization Details LastModified Time 01/13/2024 01/13/2024 declines cervical, colon and breast screenings Not available 01/13/2024 14:31:06 Plan of Treatment Reminders Order Date Submit Date Provider Last Modified By Organization Details Last Modified Time Details Appointments None recorded. Lab pap, IG + reflex HPV 2024 025 [facility], [address] [facility], [address], [place], [address], 15:18:59 Referral pain management referral 2024 025 brandon Stanton MD, [address], [place], [address], 09:23:26 vascular surgeon referral 2024 025 [email or web address] Ryan Oreilly MD, [address] [facility] , [address] [address], [place], [address], 5 10:21:00 orthopedic surgeon referral - Right elbow pain 12/06/2023. xray shows soft tissue swelling posterior to the olecranon and proximal ulna (could be olecranon bursitis). small chronic nonuinted fracture with corticated margins at tip of coronoid process. 2023 024 LAYNE Stockton, [address] [facility], [address], [place], [address], 4 11:05:21 Procedures polysomnogr aphy, split night (PROC) [address], [address] [place] [address], [address], 4 08:02:56 Surgeries None recorded. Imaging XR, cervical spine, 2 or 3 view 2024 [facility] ([facility]), [address] [place] [address], [address], 5 17:09:51 MAMMO, screening, bilateral [address] (Imaging), [address] [place] [address], [address], 5 08:14:40 Medication Orders Zepbound 7.5 mg/0.5 mL subcutaneou s pen injector 2024 025 [facility], [address], [place], [address], 5 10:07:02 Ozempic 2 mg/dose (8 mg/3 mL) subcutaneou s pen injector 2023 024 [id number], [address], [place], [place], [id number], 5 14:28:07 albuterol sulfate HFA 90 mcg/actuati on aerosol inhaler 2023 024 [id number], [address] [facility], [place], [id number], 4 14:33:34 Patient TargetsNo targets recorded. Patient Instructions Encounter Date Encounter Id Patient Instructions Last Modified By Organization Details Last Modified Time 04/23/2024 [id number] A healthy lifestyle: care instructions [email or web address] Not available 04/23/2024 14:24:42 (JEFRY) ankle brachial index* [email or web address] Not available 04/23/2024 14:47:33 Reason for Referral Orthopedic Surgeon Referral for Closed fracture of right elbow Right elbow pain 12/06/2023. xray shows soft tissue swelling posterior to the olecranon and proximal ulna (could be olecranon bursitis). small chronic nonuinted fracture with corticated margins at tip of coronoid process. Referring Physician: Mark Casey Computed Tomography Technician, Encounter Date: 12/16/2023 Vascular Surgeon Referral fo r Abnormal foot pulse Referring Physician: Mark Casey Computed Tomography Technician, Encounter Date: 04/23/2024 Pain Management Referral for Chronic neck pain Referring Physician: Mark Casey Computed Tomography Technician, Encounter Date: 10/27/2024 Results Created Date Observation Date Name Description Value Unit Range Abnormal Flag Note LastModifiedBy Organization Detail LastModifiedTime 04/23/1904/23/2024 IGP,A PTIMA HPV,A GE GDLN age gdln acog testing 30-65 Not Available [facility]) [address] [place], [address], 04/27/2024 15:18:59 04/23/1904/25/2024 IGP, APTIM A HPV, RFX 16/18 ,45 HPV aptima Negati ve negati ve This nucle ic acid ampli ficat ion test detec ts fourt een high- risk HPV types (16,1 8,31, 33,35 ,39,4 5,51, 52,56 ,58,5 9,66, 68) witho ut diffe renti ation . Not Available [facility] ([facility]) [address] [place], [address], 04/27/2024 15:19:00 04/23/19 25 04/27/2024 IGP, APTIM A HPV, RFX 16/18 ,45 diagnosis: Watson JETER ANANDA FOR INTRA EPITH ELIAL LEO Moreno OR SEEMA PUCKETT . Not Available [facility] ([facility]) [address] [facility], [place], [address], 04/27/2024 15:19:00 04/23/19 25 04/27/2024 IGP, APTIM A HPV, RFX 16/18 ,45 specimen adequacy: Watson hummel Satis facto ry for evalu ation . Endoc ervic al and/o r squam ous metap lasti c cells (endo cervi marie compo nent) are prese nt. Not Available [facility] ([facility]) [address] [place], [address], 04/27/2024 15:19:00 04/23/19 25 04/27/2024 IGP, APTIM A HPV, RFX 16/18 ,45 clinician provided ICD10: Watson hummel Z01.4 19 Not Available [facility] ([facility]) [address] [place], [address], 04/27/2024 15:19:00 04/23/19 25 04/27/2024 IGP, APTIM A HPV, RFX 16/18 ,45 performed by: Watson moreno, Cytot echadriana marques t (ASCP ) Not Available [facility] ([facility]) [address] [place], [address], 04/27/2024 15:19:00 04/23/19 25 04/27/2024 IGP, APTIM A HPV, RFX 16/18 ,45 . . Not Available [facility] ([facility]) [address] [place], [address], 04/27/2024 15:19:00 04/23/19 25 04/27/2024 IGP, APTIM A HPV, RFX 16/18 ,45 note: Commen t The Pap smear is a scree anaid [...] ts do occur . Not Available [facility] ([facility]) [address] [facility], [place], [address], 04/27/2024 15:19:00 04/23/19 25 04/27/2024 IGP, APTIM A HPV, RFX 16/18 ,45 test methodology: Commmckinley t This liqui d based ThinP rep(R ) pap test was scree mayra with the use of an image guide sylvie galloway. Not Available [facility] ([facility]) [address] [facility], [place], [address], 04/27/2024 15:19:00 04/23/19 25 04/27/2024 IGP, APTIM A HPV, RFX 16/18 ,45 HPV genotype reflex Commen t Crite gloria not met, HPV Genot ype not perfo rmed. Not Available [facility] ([facility]) [address] [facility], [place], [address], 04/27/2024 15:19:00 11/06/19 24 11/06/2023 PFT, compl ete No observ ation record ed. [address], [place], [address], 11/07/2023 10:19:59 11/21/19 24 11/06/2023 6 minut e walk test* No observ ation record ed. [address], [place], [address], 11/21/2023 13:03:43 12/05/19 24 12/05/2023 NM, bone scan, whole body No observ ation [facility] ed. [email or web address] [address] [address], [place], [address], 12/09/2023 14:47:11 12/06/19 24 12/06/2023 XR, elbow , 3 or more view No observ ation record ed. [email or web address] [address] [address], [place], [address], 12/09/2023 15:07:03 12/16/19 24 12/16/2023 lab* No observ ation record ed. [email or web address] [address], [place], [address], 12/18/2023 08:01:33 12/16/19 24 12/16/2023 lab* No observ ation record ed. [email or web address] [address], [place], [address], 12/18/2023 08:01:39 12/16/19 24 12/16/2023 lab* No observ ation record ed. [email or web address] [address], [place], [address], 12/18/2023 08:01:46 12/17/19 24 12/16/2023 lab* No observ ation record ed. [email or web address] [address], [place], [address], 12/18/2023 08:01:52 12/17/19 24 12/17/2023 lab* No observ ation record ed. [email or web address], [address], 12/18/2023 08:01:58 12/18/19 24 12/18/2023 CT, elbow , w/o contr ast No observ ation record ed. [address], [address], 12/19/2023 11:32:05 12/20/19 24 12/20/2023 lab* No observ ation record ed. [email or web address] [address], [place], [address], 12/24/2023 13:07:32 12/20/19 24 12/20/2023 lab* No observ ation record ed. [email or web address] [address], [place], [address], 12/24/2023 13:07:25 12/20/19 24 12/20/2023 lab* No observ ation record ed. [email or web address] [address], [place], [address], 12/24/2023 13:07:10 03/30/20 24 03/30/2024 CT, chest , w/ contr ast No observ ation record ed. [address] [address], [place], [address], 03/30/2024 17:40:32 04/01/19 25 04/01/2024 XR, chest , 2 view No observ ation record ed. [address] [address], [place], [address], 04/02/2024 08:12:04 04/01/19 25 04/01/2024 CT, chest , w/ contr ast No observ ation record ed. [address] [address], [place], [address], 04/02/2024 08:13:24 04/02/19 25 04/02/2024 trans -thor acic echoc ardio gram (TTE) (PROC ) No observ ation record ed. [address] [address], [place], [address], 04/06/2024 17:18:56 06/19/19 25 05/26/2024 sleep study , diagn ostic (PROC ) No observ ation record ed. [address] [address], [place], [address], 06/18/2024 13:19:26 07/01/19 25 06/30/2024 CT, angio gram, chest , w/ contr ast No observ ation record ed. [address], [place], [address], 07/01/2024 15:14:49 11/18/19 25 10/21/2024 sleep study , diagn ostic (PROC ) No observ ation record ed. [address] [address], [place], [address], 11/19/2024 11:55:00 11/20/19 25 11/18/2024 CT, angio gram, chest , w/ contr ast No observ ation record ed. [address] [address], [place], [address], 11/19/2024 11:55:48 01/21/2001/20/2025 imagi ng/di agnos tic resul t No observ ation record ed. [address] [address], [place], [address], 01/20/2025 17:14:53 01/21/2001/20/2025 XR, cervi marie spine , 2 or 3 view No observ ation record ed. [address] [address], [place], [address], 01/20/2025 17:14:45 01/21/2001/20/2025 imagi ng/di agnos tic resul t No observ ation record ed. [address] [address], [place], [address], 01/20/2025 17:14:54 01/21/2001/20/2025 imagi ng/di agnos tic resul t No observ ation record ed. [address] [facility], [place], [address], 01/20/2025 17:19:40 01/21/2001/20/2025 imagi ng/di agnos tic resul t No observ ation record ed. [id number] [facility] [address], [place], [address], 01/20/2025 17:19:40 01/21/2001/20/2025 imagi ng/di agnos tic resul t No observ ation record ed. [id number] [facility] [address], [place], [address], 01/20/2025 17:19:40 01/21/2001/20/2025 imagi ng/di agnos tic resul t No observ ation record ed. [id number] [facility] [address], [place], [address], 01/20/2025 17:21:29 Result Notes None recorded. Problems Name Problem SNOMED Code Status Onset Date Resolution Date Notes Provider Name and Address Organization Details Recorded Time Essential Sincuru n 77482905 Active 2021 JARED LOCKHART Attn: Zeb rees,[address] [facility], [place], [address], [place] - [facility] 2 15:26:15 Obesity 010045244 Active 2021 JARED LOCKHART Attn: Zeb rees,[address] [facility], [place], [address], [place] [facility] 2 15:26:17 Prediabetes 165854239 Active 2021 JARED LOCKHART Attn: Zeb g,[address] [facility], [place], [address], [place] [facility] 2 15:26:18 Smoker 42972086 Active 2021 JARED LOCKHART Attn: Zeb g,[address] [facility], [place], [address], [place] [facility] 2 15:26:20 Chronic obstructive pulmonary disease 95609827 Active 2021 JARED LOCKHART Attn: Accountin g,[address] [facility], [place], [address], [place] [facility] 2 15:26:21 Hypercalcem ia 51364718 Active 2021 JARED LOCKHART Attn: Accountin g,[address] [facility], [place], [address], [place] [facility] 2 09:44:58 Neck pain 59643115 Active 2021 JARED LOCKHART Attn: Accountin g,[address] [facility], [place], [address], [place] [facility] 2 09:45:00 Anxiety 32616764 Active 2021 JARED LOCKHART Attn: Accountin g,[address] [facility], [place], [address], [place] [facility] 2 09:45:01 Thoracic back pain 070285436 Active 2021 JARED LOCKHART Attn: Accountin g,[address] [facility], [place], [address], [place] [facility] 2 09:45:02 Screening for malignant neoplasm of respiratory tract Active 2021 JARED LOCKHART Attn: Accountin g,[address] [facility], [place], [address], [place] [facility] 2 09:45:05 Dyspnea on exertion 77505119 Active 2022 JARED LOCKHART Attn: Accountin g,[address] [facility], [place], [address], [place] [facility] 3 13:24:31 Degeneratio n of lumbar interverteb ral disc 74660751 Active 2022 JARED LOCKHART Attn: Accountin g,[address] [facility], [place], [address], [place] [facility] 3 14:12:31 Degeneratio n of cervical interverteb ral disc 03914498 Active 2022 JARED LOCKHART Attn: Zeb negrita,[address] [facility], [place], [address], [place] [facility] 3 09:37:49 Morbid obesity 232155793 Active 2022 JARED LOCKHART Attn: Zeb rees,[address] [facility], [place], [address], [place] [facility] 3 12:53:33 Sleep apnea 22388378 Active 2022 JARED LOCKHART Attn: Zeb rees,[address] [place], [address], [place] [facility] 3 13:21:37 Non-small cell lung cancer 105229920 Active 2023 JARED LOCKHART Attn: Zeb rees,[address] [facility], [place], [address], [place] [facility] 4 16:00:44 Dyspnea 351613774 Active 2023 JARED LOCKHART Attn: Zeb rees,[address] [place], [address], [place] [facility] 4 13:10:35 Closed fracture of right elbow 5658740232159 9103 Active 2023 JARED LOCKHART Attn: Zeb rees,[address] [facility], [place], [address], [place] [facility] 4 13:10:39 Chronic neck pain 1697023621020 Active 2024 JARED LOCKHART Attn: Zeb rees,[address] [place], [address], [place] [facility] 5 14:31:01 Bursitis of olecranon of right elbow 9384629509707 08 Active 2024 JARED LOCKHART Attn: Zeb rees,[address], [place], [address] , [facility] - [facility] 5 17:56:02 Problem Notes None recorded. Medical Equipment None Reported. Allergies Allergen ID Allergen Name Allergen Category Reaction Reaction Severity Criticality Documentation Date Start Date Code Code System Note Provider Name and Address Organization Details Recorded Time [id number] Zoloft medicatio n rash Not available Not available 04/22/2018 01260 RxNorm Sherry Ríos MA [facility], [place] - [facility] 9 15:48:42 Medications Name Sig Start Date Stop Date Status Note LastModified by Organization Details LastModified Time dicloxacill in 500 mg capsule TAKE 1 CAPSULE BY MOUTH EVERY 6 HOURS FOR 10 DAYS 11/05 completed Not Available Not Available Not Available buspirone 5 mg tablet TAKE 1 TABLET BY MOUTH TWICE DAILY active Not Available Not Available No t Available ipratropium 0.5 mg-albutero l 3 mg (2.5 mg base)/3 mL nebulizatio n soln USE 3 ML VIA NEBULIZER EVERY 6 HOURS NEEDED FOR SHORTNESS OF BREATH OR WHEEZING active Not Available Not Available No t Available clindamycin HCl 300 mg capsule TAKE 1 CAPSULE BY MOUTH EVERY 8 HOURS FOR 10 DAYS 11/05 completed Not Available Not Available Not Available albuterol sulfate 2.5 mg/3 mL (0.083 %) solution for nebulizatio n USE 3 ML VIA NEBULIZER THREE TIMES DAILY active Not Available Not Available No t Available azithromyci n 250 mg tablet TAKE 1 TABLET BY MOUTH DAILY FOR 2 DAYS. START ON DAY 2 OF THERAPY 01/17 completed Not Available Not Available Not Available meloxicam 15 mg tablet Take 1 tablet every day by oral route. 06/14 completed Not Available Not Available Not Available ondansetron HCl 4 mg tablet TAKE 1 TABLET BY MOUTH TWICE DAILY FOR 5 DAYS 11/05 completed Not Available Not Available Not Available prednisone 20 mg tablet TAKE 2 TABLETS BY MOUTH DAILY AT 8AM FOR 2 DAYS active Not Available Not Available No t Available acetaminoph en 300 mg-codeine 30 mg tablet Take 1 tablet every 6 hours by oral route as needed. 06/14 completed Not Available Not Available Not Available ciprofloxac in 500 mg tablet TAKE 1 TABLET BY MOUTH EVERY 12 HOURS FOR 10 DAYS 11/05 completed Not Available Not Available Not Available [...] MOUTH THREE TIMES DAILY NEEDED FOR ANXIETY 11/05 completed Not Available Not Available Not Available doxycycline monohydrate 100 mg capsule TAKE [...] Available Not Available acetaminoph en 300 mg-codeine 60 mg tablet TAKE 1 TABLET BY MOUTH ONCE TO TWICE DAILY NEEDED active Not Available Not Available No t Available ibuprofen 600 mg tablet TAKE 1 TABLET BY MOUTH THREE TIMES DAILY NEEDED FOR PAIN active Not Available Not Available No t Available levofloxaci n 500 mg tablet TAKE 1 TABLET BY MOUTH DAILY 11/05 completed Not Available Not Available Not Available albuterol sulfate HFA 90 mcg/actuati on [...] completed Not Available Not Available Not Available cyclobenzap rine 5 mg tablet Take 1 tablet twice a day by oral route as needed for 14 days. 11/26 completed Not Available Not Available Not Available tiotropium bromide 18 mcg capsule with inhalation device INHALE THE CONTENTS OF 1 CAPSULE VIA INHALATIO N DEVICE EVERY DAY 12/26 completed Not Available Not Available Not Available eszopiclone 2 mg tablet TAKE 1 TABLET BY MOUTH AT SLEEP LAB 11/05 completed Not Available Not Available Not Available budesonide- formoterol HFA 160 mcg-4.5 mcg/actuati on aerosol inhaler INHALE 2 PUFFS BY MOUTH TWICE DAILY active Not Available Not Available No t Available Vios Aerosol Delivery System USE DIRECTED active Not Available Not Available No t Available Combivent Respimat 20 mcg-100 mcg/actuati on solution for inhalation INHALE 1 PUFF BY MOUTH FOUR TIMES DAILY NEEDED FOR SHORTNESS OF BREATH active Not Available Not Available No t Available Victoza 2-Hong 0.6 mg/0.1 mL (18 mg/3 mL) subcutaneou s pen injector INJECT 1.2 MG UNDER THE SKIN EVERY DAY active Not Available Not Available No t Available Spiriva Respimat 2.5 mcg/actuati on solution for inhalation INHALE 2 PUFFS BY MOUTH EVERY DAY active Not Available Not Available [...] (8 mg/3 mL) subcutaneou s pen injector INJECT 2 MG SUBCUTANE OUS EVERY WEEK 10/27 completed Not Available Not Available Not Available Ozempic 0.25 mg or 0.5 mg (2 mg/3 mL) subcutaneou s pen injector INJECT 0.5 MG SUBCUTANE OUS EVERY WEEK 11/17 completed Not Available Not Available Not Available Zepbound 10 mg/0.5 mL subcutaneou s pen injector INJECT 10 MG SUBCUTANE OUSLY ONCE A WEEK active Not Available Not Available No t Available Zepbound 5 mg/0.5 mL subcutaneou s pen injector INJECT 5 MG SUBCUTANE OUSLY ONCE A WEEK 11/05 completed Not Available Not Available Not Available Zepbound 2.5 mg/0.5 mL subcutaneou s pen injector INJECT 2.5 MG UNDER THE SKIN ONE DAY A WEEK 11/05 completed Not Available Not Available Not Available Zepbound 7.5 mg/0.5 mL subcutaneou s pen injector INJECT 7.5 MG SUBCUTANE OUSLY ONCE A WEEK active Not Available Not Available No t Available Zepbound 2.5 mg/0.5 mL subcutaneou s solution Inject 0.5 mL every week by subcutane ous route for 28 days. 10/27 completed Not Available Not Available Not Available Vitals Date Recorded Heart rate Systolic And Diastolic Provider Name and Address Organization Details Last Updated DateTime 04/23/2024 103 /min 133/87 mm[Hg] JARED LOCKHART Attn: Accounting[address] [place], [address], [facility] 04/23/2024 14:24:55 Date Recorded Body height Body mass index (BMI) Body weight Provider Name and Address Organization Details Last Updated DateTime 04/23/2024 152.4 cm 40.2 kg/m2 88930.03 g Idalia Guillermo MA [facility] 04/23/2024 13:59:49 Date Recorded Oxygen saturation Oxygen saturation in Arterial blood by Pulse oximetry Inhaled oxygen flow rate Provider Name and Address Organization Details Last Updated DateTime 10/27/2024 98 % 98 % 3 L/min Flaquita Jimenez [facility] 10/27/2024 14:41:14 Date Recorded Body height Body mass index (BMI) Body weight Heart rate Systolic And Diastolic Provider Name and Address Organization Details Last Updated DateTime 10/27/2024 152.4 cm 42 kg/m2 20078.36 g 84 /min 120/80 mm[Hg] Idalia Guillermo MA [facility] 10/27/2024 14:02:58 Date Recorded Body height Body mass index (BMI) Body weight Oxygen saturation Oxygen saturation in Arterial blood by Pulse oximetry Heart rate Respiratory rate Systolic And Diastolic Provider Name and Address Organization Details Last Updated DateTime 4 152.4 cm 42 kg/m2 60815.3 6 g 95 % 95 % 99 /min 20 /min 126/88 mm[Hg] Ember Long MA [facility] 17:06:04 Date Recorded Oxygen saturation Oxygen saturation in Arterial blood by Pulse oximetry Provider Name and Address Organization Details Last Updated DateTime 12/16/2023 77 % 77 % JARED LOCKHART Attn: Accounting, [place], [address] 12/16/2023 13:07:02 Date Recorded Body height Body mass index (BMI) Body weight Heart rate Provider Name and Address Organization Details Last Updated DateTime 12/16/2023 152.4 cm 40.8 kg/m2 79266.81 g 64 /min Idalia Guillermo MA [facility] 12/16/2023 12:39:38 Date Recorded Heart rate Provider Name an d Address Organization Details Last Updated DateTime 01/13/2024 60 /min Ora LOCKHART Attn: Accounting[address] [place], [address] 01/13/2024 14:13:18 Date Recorded Body height Body mass index (BMI) Body weight Oxygen saturation Oxygen saturation in Arterial blood by Pulse oximetry Systolic And Diastolic Provider Name and Address Organization Details Last Updated DateTime 4 152.4 cm 41.3 kg/m2 50200.3 9 g 98 % 98 % 105/73 mm[Hg] Idalia Guillermo MA [facility] 14:01:51 Social History Question Answer Notes LastModified by Organizat ion Details LastModified Time Tobacco Smoking Status Former Smoker quit 2023 JARED LOCKHART Attn: Accounting,[address] [place], [address] 01/13/2024 14:04:02 What Is Your Level Of Caffeine Consumption? None Information not available 06/15/2019 How Much Tobacco Do You Chew? None Information not available 06/15/2019 In The 14 Days Before Symptom Onset, Have You Had Close Contact With A Laboratory-confir med COVID-19 While That Case Was Ill? No [email or web address] Information not available 01/21/2020 In The 14 Days Before Symptom Onset, Have You Had Close Contact With A Person Who Is Under Investigation For COVID-19 While That Person Was Ill? No [email or web address] Information not available 01/21/2020 Have You Been To An Area Known To Be High Risk For COVID-19? No [email or web address] Information not available 01/21/2020 What Type Of Diet Are You Following? REGULAR Information not available 01/21/2020 Which Illicit Or Recreational Drugs Have You Used? None Information not available 06/15/2019 Education 12 [email or web address] Information no t available 01/21/2020 Are There Any Guns Present In Your Home? No [email or web address] Information not available 01/21/2020 Marital Status [email or web address] Informatio n not available 01/21/2020 What Was The Date Of Your Most Recent Tobacco Screening? 04/23/2024 Information not available 04/23/2024 Performs Monthly Self-breast Exam? Yes Information no t available 01/21/2020 Seat Belts Used Routinely Yes [email or web address] Information not available 01/21/2020 Smoke Alarm In Home Yes [email or web address] Information not available 01/21/2020 Do You Have Smoke And Carbon Monoxide Detectors In Your Home? Yes Information not available 06/21/2021 At What Age Did You Start Smoking Tobacco? 17 Information not available 06/15/2019 Are You Passively Exposed To Smoke? No Information no t available 06/21/2021 How Much Tobacco Do You Smoke? 0.5 PPD Information not available 06/15/2019 Do You Use Sunscreen Routinely? Yes [email or web address] Information not available 01/21/2020 Has Tobacco Cessation Counseling Been Provided? Yes [email or web address] Information not available 09/14/2018 On What Date Was Tobacco Cessation Counseling Provided? 11/18/2023 [email or web address] Information not available 11/18/2023 How Many Years Have You Smoked Tobacco? 21 Information not available 06/15/2019 Sex: Female Functional Status Question Answer Note LastModified by Organizat ion Details LastModified Time What is your level of alcohol consumption? Occasional Information not available 06/15/2019 Do you or have you ever used smokeless tobacco? 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 Never used electronic cigarettes Information not available 06/15/2019 What is your exercise level? None [email or web address] Information not available 01/21/2020 Mental Status None recorded. Family History Relationship Description Onset Age of this Age Resolved Age Notes LastModified by Organization Details LastModified Time Mother Diabetes mellitus [email or web address] Not available 04/02 15:49:06 Mother Hypertensive disorder [email or web address] Not available 04/02 15:49:27 Father Hypertensive disorder [email or web address] Not available 04/02 15:49:27 Brother Hypertensive disorder [email or web address] Not available 04/02 15:49:27 Paternal Aunt Malignant neoplasm of breast 70 Not available 2024 14:21:20 Medical History Condition Response Coronary Artery Disease N Other N High Blood Pressure Y Atrial Fibrillation N Kidney or Bladder Problems N Thyroid Problems N Depression N COPD Y Blood Clots N GI Problems N Skin Problems N Eating Disorder N Anemia N Heart Attack (CA) N Anxiety Disorder Y Diabetes N Muscle, Joint, or Bone Problems Y Seizures/Epilepsy N Acid Reflux (GERD) N Cancer N Stroke N Asthma N Allergies Y ADHD N Substance Abuse N High Cholesterol N Hepatitis N Liver Disease N Headaches N Schizophrenia N Osteoporosis N Heart Failure N Gynecological HistoryNo gynecological history recorded. Obstetrics History GPAL:G 0 P 0 0 0 0 Immunizations Vaccine Type Date Status Note Provider Nam e and Address Organization Details Recorded Time Influenza, recombinant, quadrivalent, PF 2 completed Idalia Guillermo [place], [place] [facility] 06/06/2022 14:15:31 COVID-19 vaccine, vector-nr, rS-Ad26, PF, 0.5 mL 1 completed Idalia Guill[place] [facility] 06/06/2022 14:16:02 Tdap 8 completed Idalia Guill[place] [facility] 06/06/2022 14:16:19 Pneumococcal conjugate PCV20, polysaccharide [id number] conjugate, adjuvant, PF 3 completed JARED LOCKHART Attn: Accounting[address] [place], [address], [place] [facility] 06/19/2022 13:21:40 Influenza, high-dose, trivalent, PF 4 completed JARED LOCKHART Attn: Accounting[address] [place], [address], [place] [facility] 01/13/2024 14:31:27 Past Encounters Encounter ID Performer Location Encounter Start Date Encounter Closed Date Diagnosis/Indication Diagnosis SNOMED-CT Code Diagnosis ICD10 Code Diagnosis IMO Codes Diagnosis Note [id number] Melvina Reynolds MD [facility] [address] [place] [address] 04/22/2018 15:11:06 04/28/2018 09:29:29 Generalized osteoarthritis 885895100 M15.9 Essential hypertension 25880075 I10 Standard ed adult depression screening tool completed [id number] 77976 Z13.89 patient does not appear to be significan tly depressed. [id number] Melvina Reynolds MD [facility] [address] [place] [address] 09/05/2018 11:20:24 09/15/2018 09:59:27 Essential hypertension 76601389 I10 pt was also advised to quit smoking. Screening mammography 24 219274 Z12.31 Screening for malignant neoplasm of colon 558731423 Z12.11 Body mass index 30+ - obesity 570322706 Z68.39 discussed low fat, low carb diet, and encouraged exercise. Patient advised to limit salt and caffeine intake to maintain good blood pressure. [id number] Melvina Reynolds MD [facility] [address] [place] [address] 01/07/2019 15:10:07 01/12/2019 10:16:54 Herpes zoster 5971625 B02.9 [id number] Melvina Reynolds MD [facility] [address] [place] [address] 06/15/2019 15:10:54 06/29/2019 09:10:54 Moderate persistent asthma 311540834 J45.40 Essential hypertension 21453781 I10 pt was also advised to quit smoking. Moderate r ecurrent major depression 96746291 F33.1 Screening mammography 24 887448 Z12.31 Screening for malignant neoplasm of colon 442734879 Z12.11 [id number] Melvina Reynolds MD [facility] [address] [place] [address] 01/21/2020 16:01:28 01/22/2020 07:57:11 Pain in right knee 5177800763 24562 M25.561 may require knee surgery but would prefer to put it off for a while. Trying to give up smoking 323342180 Z72.0 encouraged her to stop smoking to decrease the risks of surgery [id number] JARED LOCKHART [facility] [address] [place] [address] 11/03/2020 12:07:58 11/14/2020 07:22:30 Essential hypertension 78474006 I10 patient will come by office for [...] for BP is <140/90 Screening mammography 24 326959 Z12.31 Colonoscopy declined 565 2557700 75120 Z53.20 [id number] JARED LOCKHART [facility] [address] [place] [address] 06/21/2021 13:55:40 06/22/2021 08:33:21 Screening for malignant neoplasm of colon 127128346 Z12.11 patient has refused past colonoscop ies. denies family hx colon cancer, blood in stool, changes in BM. Agrees to cologuard. Chronic ob structive pulmonary disease 80203414 J44.9 Patient smoking 1/2 ppd. does not want to do PFT. She states she is controlled with current medication s. [place] not thought about quitting smoking. no one smokes at home with her. + for sob on walking 2-3 blocks. Decreased heart sounds and air movement on exam. - stop smoking, counseled today Smoker 65384737 F17.200 smoking 1/2 ppd Prediabetes 527198825 R7 3.03 5.9 last year. She eats [...] weight loss can be very helpful. Obesity 014146337 E66.9 Essential hypertension 69895424 I10 patient will come by office for BP check. Advised to check BP regularly with a goal of <140/90, if BP consistent ly >140/90, advised to contact clinic Discussed DASH diet Advised weight loss and diet is best way to control BP Advised 30 minutes of exercise minimum daily Advised tobacco, alcohol, caffeine all increase BP Advised goal for BP is <140/90 [id number] Hugo moreno MD [facility] [address] [place] [address] 07/28/2021 08:08:48 07/31/2021 09:38:36 Cough 99545689 R05.1 PVproducti ve cough, sore throat, headache q0htibyd alevevacci nated for COVID and flu, home [...] if not or on SSRI antidepres sants. [id number] JARED LOCKHART [facility] [address] [place] [address] 01/29/2022 13:54:21 01/30/2022 12:20:23 Screening for malignant neoplasm of colon 088942061 Z12.11 patient has refused past colonoscop ies. denies family hx colon cancer, blood in stool, changes in BM. Agrees to cologuard. Chronic ob structive pulmonary disease 11485382 J44.9 Patient smoking 1 ppd. does not want to do PFT. She states she is controlled with current medication s. [place] not thought about quitting smoking. no one smokes at home with her. + for sob on walking 2-3 blocks. Decreased heart sounds and air movement on exam. - stop smoking, counseled today Smoker 01556722 F17.200 smoking 1ppd Prediabetes 844619543 R7 3.03 5.9 last year. She eats [...] weight loss can be very helpful. Obesity 627204148 E66.9 Essential hypertension 38502704 I10 patient will come by office for [...] Screening for malignant neoplasm of respiratory tract 458402170 Z12.2 45 pack year smoking hx, smoking 1ppd currently. Sleep apnea 56202432 G47 .30 BMI 40.9, htn, snoring, apnea, days time somnolence , COPD.- sleep study Anxiety 38820190 F41.9 controlled . needs refill Neck pain 82250651 M54.2 cervical pain on palpation Thoracic back pain 93214 8004 M54.6 thoracic pain on palpation - [...] lying on the sofa. Screening mammography 24 846991 Z12.31 Hypercalcemia 91633147 E 83.52 followed by endo. saw them 12/2021 and has f/u in 3 months. [id number] JARED LOCKHART [facility] [address] [place] [address] 06/06/2022 13:54:26 06/06/2022 14:40:17 Chronic obstructive pulmonary disease 20576083 J44.9 Patient smoking 1 ppd. does not want to do PFT. She states she is controlled with current medication s. [place] not thought about quitting smoking. no one smokes at home with her. + for sob on walking 2-3 blocks. Decreased heart sounds and air movement on exam. - stop smoking, counseled today Administra tion of pneumococcal vaccine 75535443 Z23 given today Muscle weakness 07038867 M62.81 weakness going up stairs. at risk for falls. agrees to PT. Prediabetes 949254333 R7 3.03 5.9 last year. She eats [...] 5006 R06.09 declines PFTdecline s pulm referralde nies LDCT, I rather not know [id number] JARED LOCKHART [facility] [address] [place] [address] 07/04/2022 13:58:32 07/04/2022 15:10:06 Chronic obstructive pulmonary disease 08407745 J44.9 Patient smoking 1 ppd. does not want to do PFT. She states she is controlled with current medication s. [place] not thought about quitting smoking. no one smokes at home with her. + for sob on walking 2-3 blocks. Decreased heart sounds and air movement on exam. - stop smoking, counseled todayprevn ar 20.05/2022 Muscle weakness 19497959 M62.81 first PT session completed at [facility] an is 2x per week Prediabetes 869869428 R7 3.03 5.9 05/2022. She eats high [...] R06.09 jermaine rees PFTdecline s pulm referralde adolfo LDCT, I rather not know Screening for malignant neoplasm of colon 339851841 Z12.11 patient has refused past colonoscop ies. denies family hx colon cancer, blood in stool, changes in BM. Agrees to cologuard. Smoker 90050522 F17.200 smoking 1ppd Obesity 829409318 E66.9 Essential hypertension 89697668 I10 134/76 Advised to check BP regularly with a goal of <140/90, if BP consistent ly >140/90, advised to contact clinicDisc ussed DASH dietAdvise d weight loss and diet is best way to control BPAdvised 30 minutes of exercise minimum dailyAdvis ed tobacco, alcohol, caffeine all increase BPAdvised goal for BP is <140/90 Screening for malignant neoplasm of respiratory tract 606509225 Z12.2 45 pack year smoking hx, smoking 1ppd currently. - declines LDCT Sleep apnea 98602041 G47 .30 BMI 40.9, htn, snoring, apnea, days time somnolence , COPD.- sleep study Anxiety 91505333 F41.9 controlled . needs refill Neck pain 55826713 M54.2 cervical pain on palpation Screening mammography 24 960782 Z12.31 missed appointmen twill reschedule Hypercalcemia 78606531 E 83.52 followed by endo. saw them 12/2021 and has f/u in 3 months. HIV screening 784237421 Z11.4 Degenerati on of cervical intervertebral disc 85679140 M50.30 01/2022: severe disc disease in neck (C5-6, C6-7). Mild degernativ e disease in thoracic spine. sending to ortho [id number] JARED LOCKHART [facility] [address] [place] [address] 07/05/2022 12:20:29 07/05/2022 12:51:23 [id number] JARED LOCKHART [facility] [address] [place] [address] 11/26/2022 12:19:34 11/27/2022 15:52:58 Chronic obstructive pulmonary disease 43278905 J44.9 Patient smoking 1 ppd. does not [...] counseled today- prevnar 20 given 05/2022 Prediabetes 920536524 R7 3.03 5.9 05/2022. She eats high [...] nies LDCT, I rather not know Smoker 78709531 F17.200 smoking 1ppddoes not want to quit Screening for malignant neoplasm of respiratory tract 944638048 Z12.2 45 pack year smoking hx, smoking 1ppd currently. - declines LDCT Screening mammography 24 235786 Z12.31 missed appointmen thas not reschedule dnew order Morbid obesity 327523156 E66.01 BMI 41.811 lb weight gain since 3Pati ent denies fam hx of thyroid cancer, personal hx pancreatit is. Medication side effects were reviewed with patient and include MIC, pancreatit is, nausea, vomiting, stomach upset. Patient was shown pen and was shown how to clean area, inject pen, and how often to administer . [id number] JARED LOCKHART [facility] [address] [place] [address] 06/03/2023 12:17:13 06/03/2023 13:00:52 Morbid obesity 025029698 E66.01 BMI 42. wants mounjaro/z epboundPat ient denies fam hx of thyroid cancer, personal hx pancreatit is. Medication side effects were reviewed with patient and include MIC, pancreatit is, nausea, vomiting, stomach upset. Patient was shown pen and was shown how to clean area, inject pen, and how often to administer . [id number] JARED LOCKHART [facility] [address] [place] [address] 2023 13:48:06 2023 14:30:21 Morbid obesity 017976277 E66.01 BMI 42.8 on epbound 2.5 and [...] to administer . Adult heal th examination 056776989 Z00.00 here for labsincrea se zepboundst op sweetsdecl dilan all cancer screenings [id number] JARED LOCKHART [facility] [address] [place] [address] 07/15/2023 15:14:51 07/15/2023 15:24:54 [id number] Prosper Hernandez MD [facility] [address] [place] [address] 11/18/2023 13:45:23 11/18/2023 16:05:52 Chronic obstructive pulmonary disease 11521076 J44.9 Patient smoking 1 ppd. needs refills [...] today- prevnar 20 given 05/2022 Morbid obesity 923797952 E66.01 BMI 42.2 on ozempic .5 mg and will increase today. she denies any side effects.no weight lossadvise d stop buying sweets for homeshe is given a list of nutrition goals for each day including protein and veggies servingssh e verbalizes understand ing that if she does not sustain enough protein she will lose muscle mass Non-small cell lung cancer 801944287 C34.90 newly dx adenocarci noma of lung. undergoing evaluation to have surgery v radiationf ollowing Dr Cash montejo smoking, trying to quitsurgeo n: Dr Roberson m: Dr Lr [id number] Prosper Hernandez MD [facility] [address] [place] [address] 12/05/2023 17:03:12 12/05/2023 17:19:57 Bursitis of olecranon of right elbow 1388093933 16949 M70.21 x1 wk, increased swelling and redness [...] ates that she has radiation appt at [facility] tomorrow and will go to ED after appt [id number] rPosper Hernandez MD [facility] [address] [place] [address] 12/16/2023 12:34:09 12/16/2023 13:43:37 Closed fracture of right elbow 2943811341 7520955 S42.401K Right elbow pain 12/06/2023. xray shows soft tissue swelling posterior to the olecranon and proximal ulna (could be olecranon bursitis). small chronic nonuinted fracture with corticated margins at tip of coronoid process. Dyspnea 187512983 R06.00 02 stats 76% in office and c/o of worsening sob. need to r/o PE due to new lung cancer b COPD exacerbati on.sent to hospital, reluctant but agrees.did not accept ambulance ride. going to [facility] in personal car.PEX: decreased breath sounds LLQ. no wheezing. decreased air movement on expiration all lung bases. b/l palms erythemato us. [id number] Prosper Hernandez MD [facility] [address] [place] [address] 01/13/2024 13:50:19 01/13/2024 14:37:53 Sleep apnea 90305071 G47.30 BMI 41.3, htn, snoring, apnea, days time somnolence , COPD.- sleep study Morbid obesity 887185851 E66.01 BMI 41.3 on ozempic 2 mg and will increase today. she denies any side effects.no weight lossadvise d stop buying sweets for homeshe is given a list of nutrition goals for each day including protein and veggies servingssh e verbalizes understand ing that if she does not sustain enough protein she will lose muscle mass Moderate p ersistent asthma 520880719 J45.40 refill Administra tion of influenza vaccine 70302443 Z23 [id number] Prosper Hernandez MD [facility] [address] [place] [address] 04/23/2024 13:40:32 04/23/2024 14:31:08 Gynecologic examination 15202476 Z01.419 Pap obtained, unable to visualize entire cervix due to pain/atrop hy. obtained pap. will call with results.CB Jesus performedB reast education provided Screening mammography 24 987054 Z12.31 missed appointmen thas not reschedule dnew order Abnormal foot pulse 6943 7003 R09.89 toes appear purple, mildly decreased PT pulses, unable to feel pedal pulses. will send to vascularno longer smokes but is a long time smoker Morbid obesity 977111541 E66.01 BMI 40.2 on ozempic 2 mg and will increase today. she denies any side effects.no weight lossadvise d stop buying sweets for homeshe is given a list of nutrition goals for each day including protein and veggies servingssh e verbalizes understand ing that if she does not sustain enough protein she will lose muscle mass [id number] Prosper Hernandez MD [facility] [address] [place] [address] 10/27/2024 13:47:08 10/27/2024 14:39:07 Morbid obesity 011726973 E66.01 BMI 42 on zepbound 5 mg and will increase today. she denies any side effects.no weight lossadvise d stop buying sweets for homeshe is given a list of nutrition goals for each day including protein and veggies servingssh e verbalizes understand ing that if she does not sustain enough protein she will lose muscle mass Chronic neck pain 640481 7413 107 M54.2 G89.29 7332935 cervical pain on palpations aw JARED [place] 05/2023 and Was sent to physical therapy for her neck and lower back which she states did not help. She did not follow up with Orthopedic s at this time. She states due to her breathing she can not get an MRI. She agrees to get a new x-ray and would like to go to pain management . Bursitis o f olecranon of right elbow 6495627952 70497 M70.21 [id number] Patient agrees to go see ortho. She will complete her antibiotic s. If she develops chills or fevers or worsening pain in her elbow she will go back to the ER. Health Concerns Section Related Observation LastModified by Organization Detai ls LastModified Time None Recorded Concern Status LastModified by Organization Details LastModified Time None Recorded Advance Directives Directive None Recorded Payers Insurance Date Sequence Insurance Name Policy Number Policy Villegas Covered Member ID Villegas Member ID Guarantor Name 10/28/2024 2 [employer] - [email or web address] Sherri Ramirez [id number] Sherri James 10/24/2024 1 [place] Sherir Ramirez [id number] Sherri Ramirez 10/24/2024 [place] [facility] Sherri Ramirez [id number] Sherri Ramirez 04/23/2024 2 [place] WHEN MEDICARE OR MEDICARE REPLACEMENT PRIMARY) Sherri Ramirez [id number] Sherri Ramirez 12/05/2023 1 [facility] [id number] Sherri Ramirez [id number] Sherri Ramirez 12/11/2023 1 [place] [facility] Sherri Ramirez [id number] Sherri Ramirez Notes Date Note Type Note Provider Name and Address Organization Details Recorded Time 12/05/2023 text/html ROS as noted in the HPI Pt presents for R elbow redness and [...] elbow constantly. JARED AVINA Attn: Accounting[address] [facility], [place], [address], [place] [facility] 12/10/2023 09:17:33 12/16/2023 text/html here for elbow and my breathing has gotten worse. Patient seen [...] to hospital. JARED LOCKHART Attn: Accounting[address] [facility], [place], [address], [place] [facility] 12/16/2023 13:12:39 01/13/2024 text/html here [...] rehab referral sent by pulm. 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 JARED LOCKHART Attn: Accounting[address] [facility], [place], [address], [place] [facility] 01/13/2024 14:32:30 04/23/2024 text/html here for pap LMP: menopauseLast Pap: long time ago, does not rememberLast mammogram: many years agoFam hx: paternal aunt with breast ca age 70. denies cervical, uterine, ovarian cancers JARED LOCKHART Attn: Accounting[address] [facility], [place], [address], [place] [facility] 04/23/2024 14:26:01 10/27/2024 text/html ROS as noted in the HPI Patient here for follow up on her R elbow bursitis, as well as weight loss and neck pain. Patient was seen at urgent care for bursal aspiration with culture. Culture was growing MRSA, and she was started her on clindamycin and ciprofloxacin. She was advised to also go to ED for possible IV antibiotics. At ED, bursa was aspirated with culture again, which was negative for MRSA. Told her to continue on oral antibiotics as prescribed. No complaints of elbow pain or tenderness, fever, decreased ROM. States she feels fine.Patient notes since starting Zepbound she feels she has not lost much weight and does not feel full, like when she was on Ozempic.Lastly, she continues to have chronic neck pain due to arthritis of cervical vertebrae that is affecting ADLs. saw JARED Stockton 05/2023 and Was sent to physical therapy for her neck and lower back which she states did not help. She did not follow up with Orthopedics at this time. She states due to her breathing she can not get an MRI. She agrees to get a new x-ray and would like to go to pain management. JARED LOCKHART Attn: Accounting[address] [place], [address], [facility] 10/27/2024 17:57:01 OBGyn Episode No OBEpisode recorded.
--- OUTSIDE RECORDS SUMMARY | 2025-01-20 19:31 | XMS_ITS | Clinical Summary ---
Author Organization [facility] Address [address] [place] [address] Care Team Providers Care Cribbing Setter Name Role Phone Unknown, Provider Primary Care Provider Unavaila ble Source Comments [facility],non-owned Affiliates and Associated Physician Practices is amultiple site organization consisting of ambulatory clinics and hospital sitesin [place], [place], [place] and [place]. This disclosure is being madepursuant to the Care Everywhere program and may not contain all information available regarding this patient. Last updated 17.[facility] [employer] Allergies Active Allergy Reactions Criticality Noted Date [...] 1-dose series) 2021 SCREENING FOR DIABETES 06/17/2023 DEPRESSION SCREENING 04/01/2024 06/17/2023 COVID-19 VACCINE (2 - 2024-2 6 season) 2024 06/07/2020 INFLUENZA VACCINE (#1) 2024 04/28/2021 HEPATITIS B [...] to complete this topic Insurance MEDICAID - [facility] [place] Member Subscriber Plan / Payer (Ef fective 2023-Present) Name:Arnav Ramirez Member ID:Not on file Relation to Subscriber:Self Name:Nisha Ramirezne Payer ID:Not on file Group ID:Not on file Type:Medicaid [place] Address: [place] [id number] * Guarantor: ARNAV RAMIREZ Account Type Relation to Patient Date of Phone Billing Address Personal/Family [address] [place] [address] [place]ID [place] Member Subscriber Plan / Payer (Ef fective for All Dates) Name:Arnav Ramirez Relation to Subscriber:Self Name:Arnav Ramirez Payer ID:Not on file Group ID:Not on file Type:Medicaid [place] Address: [place] [id number] SELF PAY NO INSURANCE Member Subscriber Plan / Payer (Ef fective for All Dates) Name:Arnav Ramirez Member ID:Not on file Relation to Subscriber:Not on file Name:ARNAV RAMIREZ Subscriber ID:Not on file (Home) Address: [address] [place] [address] Payer ID:Not on file Group ID:Not on file Type:Self Pay Address: [place], [place] * Guarantor: ARNAV RAMIREZ Account Type Relation to Patient Date of Phone Billing Address Personal/Family [address] [place] [address] [place]ID [place] Member Subscriber Plan / Payer (Ef fective for All Dates) Name:Arnav Ramirez Relation to Subscriber:Self Name:Arnav Ramirez Payer ID:Not on file Group ID:Not on file Type:Medicaid [place] Address: [place] [phone] SELF PAY NO INSURANCE Member Subscriber Plan / Payer (Ef fective for All Dates) Name:Arnav Ramirez Member ID:Not on file Relation to Subscriber:Not on file Name:ARNAV RAMIREZ Subscriber ID:Not on file (Home) Address: [address] [place] [id number] Payer ID:Not on file Group ID:Not on file Type:Self Pay Address: [place], [place] * Guarantor: ARNAV RAMIREZ Account Type Relation to Patient Date of Phone Billing Address Personal/Family [address] [place] [phone] [place] SELF PAY NO INSURANCE Member Subscriber Plan / Payer (Ef fective for All Dates) Name:Arnav Ramirez Member ID:Not on file Relation to Subscriber:Not on file Name:ARNAV RAMIREZ Subscriber ID:Not on file (Home) Address: [address] [place] [id number] Payer ID:Not on file Group ID:Not on file Type:Self Pay Address: [place], [place] Care Teams Cribbing Setter Relationship Specialty Start Date End Date Unknown, Provider PCP - General 06/17/23
== END 2025-01-20 15:12 | disposition home or self-care (01) ==
PROVIDERS: PCP Physician Assistant; Visit Provider Pain Medicine Interventional Pain Medicine
DX: M25.552 Pain in left hip (principal); M25.551 Pain in right hip; M25.512 Pain in left shoulder; M25.511 Pain in right shoulder; M25.562 Pain in left knee; M25.561 Pain in right knee; M54.12 Radiculopathy, cervical region; M54.14 Radiculopathy, thoracic region; M54.16 Radiculopathy, lumbar region
CPT/HCPCS: 72040; 72072; 72100; 73030; 73521; 73562

== ENCOUNTER 2025-01-25 09:07 | Inpatient (IN) | payer MEDICARE, OTHER, SELFPAY ==
[2025-01-25] VITALS (15 sets, daily range): BP systolic 106–148; BP diastolic 70–85; PULSE 93–119; RESP 18–25; TEMP 36.1–36.8; O2SAT 90–98; BMI 40.6
--- NOTE | ~2025-01-25 | CT_ITS ---
EXAMINATION: CT diagnostic chest wo con DATE: 01/26/2025 13:48 INDICATION: COPD, ppneumonia TECHNIQUE: Computed tomography (CT) of the chest was performed without intravenous contrast. Additional 3D reconstructions utilizing coronal maximum intensity projection (MIP) were performed. Automated exposure control and iterative reconstruction technique were employed. The dose-length product was 61 8.13 mGy-cm. COMPARISON: 11/18/2024 FINDINGS: Mild to moderate upper lung predominant emphysema. Densities discoid atelectasis/scarring in the left upper lobe. New discoid atelectasis in the right lower lobe along the major fissure. No pneumonia, pulmonary edema or pleural effusion... Heart size is normal. Small amount of atherosclerotic coronary artery calcification. No pericardial effusion. Thoracic aorta is normal in caliber. No pathologically enlarged thoracic lymphadenopathy. Multiple gallstones filling the incompletely distended bladder. Severe bilateral glenohumeral osteoarthritis. Moderate to severe thoracic and lower cervical spondylosis. IMPRESSION: 1. Mild to moderate upper lung predominant emphysema with chronic atelectasis/scarring the left upper lobe and new mild discoid atelectasis in the right lower lobe. 2. No pneumonia or other acute cardiopulmonary disease. 3. Cholelithiasis. Reviewed, dictated and finalized at location A. IMPRESSION: 1. Mild to moderate upper lung predominant emphysema with chronic atelectasis/s carring the left upper lobe and new mild discoid atelectasis in the right lower lobe. 2. No pneumonia or other acute cardiopulmonary disease. 3. Cholelithiasis.
--- NOTE | ~2025-01-25 | XR_ITS ---
EXAMINATION: XR chest 1V portable COMPARISON: No comparisons available. HISTORY: shortness of breath,HX OF COPD FINDINGS: The lungs are clear, no effusion. No pneumothorax. Heart is normal size. Mediastinal and hilar contours are within normal limits. Bony thorax no acute abnormality. Miscellaneous: None Impression: No acute cardiopulmonary abnormality. Reviewed, dictated and finalized at location P. Impression: No acute cardiopulmonary abnormality.
--- NOTE | 2025-01-25 09:24 | ECG_ITS ---
Test Date: 2025-01-25 10:23:04 Measurements Intervals [place] Rate: 93 P: 39 OK: 189 QRS: 12 QRSD: 81 T: 48 QT: 347 QTc: 433 Interpretive Statements SINUS RHYTHM LOW QRS VOLTAGE IN PRECORDIAL LEADS CONSIDER INFERIOR INFARCT, AGE INDETERMINATE BASELINE WANDER- AVR, V6 ABNORMAL ECG Compared to ECG 04/01/2024 14:26:08 HEART RATE HAS DECREASED Electronically Signed On 01-25-2025 10:50:32 CDT by Huan Watt D.O.
--- NOTE | 2025-01-25 09:57 | PCRCNOTE ---
ABG late due to pt being a hard stick.
[2025-01-25 10:06] LABS: Alveolar/Arterial O2 Gradient 14.6 mmHg; Fractional Inspired Oxygen 28 %; HCO3 ABG 31.2 mEq/l (22.0-26.0); Liters per Minute 2.0 LPM; Modified Allen's Test Pass; Oxygen Content ABG 18.5 %vol (16.0-22.0); Oxygen Saturation ABG 92.8 % (95.0-100.0); PCO2 ABG 55.8 mmHg (35.0-45.0); PO2 ABG 68.3 mmHg (80.0-100.0); PO2 FiO2 Ratio Arterial Blood 3.25 %; Site Drawn RIGHT RADIAL
[2025-01-25 10:34] LABS: Hematocrit 42.5 % (37.0-47.0); Hemoglobin 13.3 g/dL (12.0-15.0); Immature Granulocyte Percent A 0.2 % (0-0.5); Lymphocytes Absolute Auto 1.54 K/mm3 (0.9-3.2); Mean Corpuscular HGB Conc 31.3 g/dl (32-36); Mean Corpuscular Hemoglobin 28.9 pg (26-34); Mean Corpuscular Volume 92.4 fl (80-100); Nucleated Red Blood Cells Absolute Auto 0.000 K/mm3 (0.0-0.012); Nucleated Red Blood Cells Perc 0.0 % (0.0-0.2); Platelet Count Result 333 k/mm3 (150-375); Red Blood Count 4.60 M/mm3 (4.2-5.4); White Blood Count 9.1 K/mm3 (4.5-10.0)
[2025-01-25 10:46] LABS: INR 1.0; Partial Thromboplastin Time 30.9 Seconds (22.3-36.8); Prothrombin Time 13.3 Seconds (11.1-14.7)
[2025-01-25 10:47] LABS: Alanine Aminotransferase 14 U/L (6-35); Albumin Level 3.9 g/dL (3.5-5.1); Alkaline Phosphatase 136 U/L (38-126); Anion Gap 2 mmol/L (4-12); Aspartate Amino Transferase 21 U/L (14-36); Bilirubin,Total 0.2 mg/dL (0.2-1.3); Blood Urea Nitrogen 18 mg/dL (7-17); Calcium 9.4 mg/dL (8.4-10.2); Carbon Dioxide 39 mmol/L (22-30); Chloride 94 mmol/L (98-107); Estimated CRCL calculation 71 ml/min; Estimated Glomerular Filt Rate > 60; Glucose 97 mg/dL (65-110); Magnesium 2.0 mg/dL (1.6-2.3); Potassium 4.0 mmol/L (3.4-5.0); Sodium 135 mmol/L (137-145); Total Protein 7.1 g/dL (6.3-8.2)
[2025-01-25 10:58] LABS: NT Pro B Type Natriuretic Pept 213 pg/mL (19.9-100); Troponin I < 0.012 ng/mL (0.000-0.034)
--- NOTE | 2025-01-25 11:04 | ED.SOB ---
HPI - SOB/Dyspnea General Chief Complaint: Shortness of Breath/Dyspnea Stated Complaint: SOB w/ exertion Time Seen by Provider: 01/25/25 09:18 Source: patient, EMS, RN notes reviewed and old records reviewed Mode of arrival: EMS Limitations: no limitations History of Present Illness HPI Narrative: This is a 64 year old female with history of COPD who presents from home for evaluation of shortness of breath with exertion. She states that over the past couple of day she has had shortness of breath exertion. She is having trouble walking around her home so she is sleeping on the couch. She reports swelling to left ankle since she sleeping on sitting up. She reports worsening shortness of breath with laying down. She also reports sneezing and coughing. She is unsure if she is having issues with allergies or her cOPD. She denies fever, chills, or chest pain. She wears 2 L NC with activity but for the past couple of days she is wearing her oxygen all the time. Related Data Home Medications ?Medication ?Instructions ?Recorded ?Confirmed ?Last Taken ?Type budesonide-formoterol HFA 160 2 puff inhalation BID 09/08/19 01/25/25 12/04/24 History mcg-4.5 mcg/actuation aerosol inhaler (Symbicort) losartan 100 mg tablet 100 mg PO DAILY 06/13/22 01/25/25 12/04/24 History metoprolol tartrate 50 mg tablet 50 mg PO Q12H 06/13/22 01/25/25 01/24/25 History nortriptyline 50 mg capsule 50 mg PO DAILY 06/13/22 01/25/25 12/04/24 History nicotine 21 mg/24 hr daily 1 patch transdermal DAILY PRN 01/25/25 01/25/25 Unknown History transdermal patch cravings tirzepatide (weight loss) 10 10 mg subcut WEEKLY 01/25/25 01/25/25 01/22/25 History mg/0.5 mL subcutaneous pen injector (Zepbound) Allergies Allergy/AdvReac Type Severity Reaction Status Date / Time sertraline Allergy Intermediate Itching Verified 01/25/25 14:14 Sulfa (Sulfonamide Allergy Unknown Unknown Verified 01/25/25 14:14 Antibiotics) [facility] Past Medical History Medical History Hypertension Right hand dominant COPD (chronic obstructive pulmonary disease) RAISSA (obstructive sleep apnea) Screening for hyperlipidemia Nodule of left lung Major depressive disorder, recurrent, unspecified Essential hypertension Asthma with COPD (chronic obstructive pulmonary disease) Anxiety disorder, unspecified Family History Family History Mother Diabetes mellitus Heart attack Hypertension Father Heart attack Hypertension Smoker Social History Social History Smoking packs per day: 1.5 Smoking cigarettes per day: 30.0 Years smoked: 40 Smoking pack-years: 60.00 Smoking status: Former smoker Tobacco type: cigarettes Smoking end date: 12/31/23 Alcohol intake: unknown Substance use: never Substance use type: does not use Do You Feel Safe in your Home?: Yes Lack of Transportation: No Lack of Food: Never True Current Housing: I Have Housing Concerned About Future Housing: No Difficulty Paying Gas/Electric Bills: No Difficulty Paying for Meds: No Currently Unemployed: No Education: Decline to Answer Difficulty w/ Childcare or Family Care: No Spiritual care concerns: No Exam Const: General: no acute distress and alert Nutritional Appearance: obese Orientation/consciousness: patient oriented x3 HENMT: Head: normal to inspection Mouth: Yes Normal oral and palatal mucosa present, Yes lip normal and Yes moist mucous membranes Eyes: EOM: EOMs intact bilaterally Resp: Effort & Inspection: normal respiratory effort Auscultation: wheezes expiratory wheezes and diminished lung sounds Cardio: Rate: regular rate Rhythm: regular rhythm Heart sounds: Murmur heart sound present GI: GI Palp: Yes Soft to palpation, No Tenderness to palpation present (GI), No Guarding due to palpation present (GI) and No Rigid due to palpation Auscultation: normal bowel sounds Skin: Rashes: no rashes Neuro: General: patient oriented x3, moves all extremities and CN's II-XI intact bilaterally Extrem: General: normal to inspection Psych: Mental Status: mental status grossly normal Affect: normal affect Attitude: cooperative Course Reevaluation(s) Reevaluation #1: PAtient states she is feeling better. I discussed plan to given nebulizer treatment and dose of steroids and I will reasses Date: 01/25/25 Time: 11:07 Reevaluation #2: PAtient continue to poor air movement and wheezing despite nebs. She agrees to observation for COPD exacerbation . Date: 01/25/25 Time: 12:15 Consultations Consultation #1: I spoke with hospitalist about patient and she accepts to service to treat COPD exacerbation. Date: 01/25/25 Time: 12:23 Vital Signs Vital signs: Vital Signs Temperature 98.2 F 01/25/25 09:08 Pulse Rate 95 01/25/25 09:08 Respiratory Rate 18 01/25/25 09:08 Blood Pressure 148/85 H 01/25/25 09:08 Pulse Oximetry 96 01/25/25 09:08 Oxygen Delivery Nasal Cannula 01/25/25 09:08 Oxygen Flow Rate 2 01/25/25 09:08 Temperature 97.0 F L 01/25/25 14:13 Pulse Rate 101 H 01/25/25 14:13 Respiratory Rate 20 01/25/25 14:13 Blood Pressure 120/75 01/25/25 14:13 Pulse Oximetry 94 01/25/25 14:13 Oxygen Delivery Nasal Cannula 01/25/25 11:25 Oxygen Flow Rate 2 01/25/25 11:25 MDM - SOB/Dyspnea Lab Data 01/25/25 10:16 01/25/25 10:16 Labs: Lab Results 01/25/25 01/25/25 Range/Units 10:16 10:26 WBC 9.1 (4.5-10.0) K/mm3 RBC 4.60 (4.2-5.4) M/mm3 Hgb 13.3 (12.0-15.0) g/dL Hct 42.5 (37.0-47.0) % MCV 92.4 (80-100) fl MCH 28.9 (26-34) pg MCHC 31.3 L (32-36) g/dl RDW 14.3 (11.5-14.5) % Plt Count 333 (150-375) k/mm3 MPV 9.4 (7.4-10.4) fl Immature Gran % (Auto) 0.2 (0-0.5) % Neut % (Auto) 71.3 (45.5-73.1) % Lymph % (Auto) 17.0 L (18.3-44.2) % [place] % (Auto) 6.4 (2.6-8.5) % Eos % (Auto) 4.7 H (0-4.4) % Baso % (Auto) 0.4 (0.2-1.2) % Lymph # (Auto) 1.54 (0.9-3.2) K/mm3 [place] # (Auto) 0.6 (0.1-0.6) K/mm3 Eos # (Auto) 0.4 H (0-0.3) K/mm3 Baso # (Auto) 0.0 (0.0-0.1) K/mm3 Abs Immat Gran (auto) 0.02 (0.00-0.031) K/mm3 Absolute Neuts (auto) 6.5 (1.3-6.7) K/mm3 Absolute Nucleated RBC 0.000 (0.0-0.012) K/mm3 Nucleated RBC % 0.0 (0.0-0.2) % PT 13.3 (11.1-14.7) Seconds INR 1.0 APTT 30.9 (22.3-36.8) Seconds Sodium 135 L (137-145) mmol/L Potassium 4.0 (3.4-5.0) mmol/L Chloride 94 L (98-107) mmol/L Carbon Dioxide 39 H (22-30) mmol/L Anion Gap 2 L (4-12) mmol/L BUN 18 H (7-17) mg/dL Creatinine 0.73 (0.7-1.0) mg/dL Estim Creat Clear Calc 71 ml/min Estimated GFR > 60 (59 - ) Glucose 97 (65-110) mg/dL Calcium 9.4 (8.4-10.2) mg/dL Magnesium 2.0 (1.6-2.3) mg/dL Total Bilirubin 0.2 (0.2-1.3) mg/dL AST 21 (14-36) U/L ALT 14 (6-35) U/L Alkaline Phosphatase 136 H (38-126) U/L Troponin I < 0.012 (0.000-0.034) ng/mL NT-Pro-B Natriuret Pep 213 H (19.9-100) pg/mL Total Protein 7.1 (6.3-8.2) g/dL Albumin 3.9 (3.5-5.1) g/dL Influenza A (RT-PCR) Negative (Negative) Influenza B (RT-PCR) Negative (Negative) RSV (RT-PCR) Negative (Negative) SARS-CoV-2 RNA (RT-PCR) Negative (Negative) ABG Data ABG results: 01/25/25 09:38 Puncture Site Right radial ABG pH 7.365 ABG pCO2 55.8 H ABG pO2 68.3 L ABG PO2/FiO2 Ratio 3.25 ABG HCO3 31.2 H ABG O2 Saturation 92.8 L ABG O2 Content 18.5 ABG Base Excess 4.3 A-a Gradient 14.6 Oxyhemoglobin 91.2 Total Hemoglobin 14.4 O2 Delivery Device Nasal cannula O2 Liters/Min 2.0 FiO2 28 Discharge Plan Discharge Clinical Impression: Acute exacerbation of chronic obstructive pulmonary disease Patient Disposition: Still a Patient Condition: Stable
[2025-01-25 11:12] LABS: Influenza A QL RT-PCR Negative (Negative); Influenza B QL RT-PCR Negative (Negative); RSV RNA, RT-PCR Negative (Negative); SARS-CoV-2 RNA PCR Negative (Negative)
[2025-01-25] MEDS: ALBUTEROL SULFATE NEB 2.5 MG/3 ML INH 10 MG INHALATION (11:20)
--- OUTSIDE RECORDS SUMMARY | 2025-01-25 11:51 | XMS_ITS | Clinical Summary ---
Author Organization [facility] Address [address] [place] [address] Care Team Providers Care Script Girl Name Role Phone Unknown, Provider Primary Care Provider Unavaila ble Source Comments [facility],non-owned Affiliates and Associated Physician Practices is amultiple site organization consisting of ambulatory clinics and hospital sitesin [place], [place], [place] and [place]. This disclosure is being madepursuant to the Care Everywhere program and may not contain all information available regarding this patient. Last updated 17.[facility] MtoV Allergies Active Allergy Reactions Criticality Noted Date [...] to complete this topic Insurance MEDICAID - [facility] MEDICAID - [place] Member Subscriber Plan / Payer (Ef fective 2023-Present) Name:Arnav Ramirez Member ID:Not on file Relation to Subscriber:Self Name:Nisha Ramirezne Payer ID:Not on file Group ID:Not on file Type:Medicaid [place] Address: [place] [id number] * Guarantor: ARNAV RAMIREZ Account Type Relation to Patient Date of Phone Billing Address Personal/Family [address] [place] [address] [place]ID - [place] Member Subscriber Plan / Payer (Ef fective for All Dates) Name:Arnav Ramirez Relation to Subscriber:Self Name:Arnav Ramirez Payer ID:Not on file Group ID:Not on file Type:Medicaid [place] Address: [place] [phone] SELF PAY NO INSURANCE Member Subscriber Plan / Payer (Ef fective for All Dates) Name:Arnav Ramirez Member ID:Not on file Relation to Subscriber:Not on file Name:ARNAV RAMIREZ Subscriber ID:Not on file (Home) Address: [address] [place] [address] Payer ID:Not on file Group ID:Not on file Type:Self Pay Address: [place], [place] * Guarantor: ARNAV RAMIREZ Account Type Relation to Patient Date of Phone Billing Address Personal/Family [address] [place] [address] [place] Member Subscriber Plan / Payer (Ef fective for All Dates) Name:Arnav Ramirez Relation to Subscriber:Self Name:Arnav Ramirez Payer ID:Not on file Group ID:Not on file Type:Medicaid [place] Address: [place] [phone] SELF PAY NO INSURANCE Member Subscriber Plan / Payer (Ef fective for All Dates) Name:Arnav Ramirez Member ID:Not on file Relation to Subscriber:Not on file Name:ARNAV RAMIREZ Subscriber ID:Not on file (Home) Address: [address] [place] [phone] Payer ID:Not on file Group ID:Not on file Type:Self Pay Address: [place], [place] * Guarantor: ARNAV RAMIREZ Account Type Relation to Patient Date of Phone Billing Address Personal/Family [address] [place] [phone] MED[place]ID [place] SELF PAY NO INSURANCE Member Subscriber Plan / Payer (Ef fective for All Dates) Name:Arnav Ramirez Member ID:Not on file Relation to Subscriber:Not on file Name:ARNAV RAMIREZ Subscriber ID:Not on file (Home) Address: [address] [place] [phone] Payer ID:Not on file Group ID:Not on file Type:Self Pay Address: [place], [place] Care Teams Script Girl Relationship Specialty Start Date End Date Unknown, Provider PCP - General 06/17/23
--- OUTSIDE RECORDS SUMMARY | 2025-01-25 11:51 | XMS_ITS | Clinical Summary ---
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 Name Role Phone Unavailable Primary Care Provider [...] Department Care Team Description 11/24/2024 Orders Only [facility] Oncology and Hematology - [place] [address] [place] [phone] Dakota Watkins MD 11/23/2024 Orders Only [facility] Oncology and Hematology [facility] [address] [place] [phone] Dakota Watkins MD 11/20/2024 10:15 AM CDT Office Visit [facility] Oncology and Hematology [facility] [address] [place] [phone] Dakota Watkins MD Malignant neoplasm of upper lobe of left lung (CMS/HCC) (Primary Dx) 11/20/2024 Orders Only [facility] Oncology and Hematology [facility] [address] Dakota Watkins MD 11/19/2024 Telephone [facility] Oncology and Hematology [facility] [address] [place] [phone] for appointment 11/03/2024 [...] st Contact Info) Description 04/05/2025 1: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
[2025-01-25] MEDS: IPRATROPIUM BR 0.02% INH SOLN 0.5 MG/2.5 ML VIAL INHALATION ×2 (13:48→20:57)
[2025-01-25] MEDS: ALBUTEROL SULFATE NEB 2.5 MG/3 ML INH INHALATION ×2 (13:49→20:57)
--- NOTE | 2025-01-25 14:23 | ADMGEN ---
This patient, Sherri Ramirez, was admitted to [facility] Surg Room 315-01. Patient/family oriented to hospital policies and general routines including ID bracelet, bed and alarms, visiting hours, pain management, procedures, bathroom and other care routines, personal items, smoking policy, room service/diet, and visiting hours. Information on how to activate the Rapid Response Team has been discussed. Patient/Family are encouraged to report perceived risks to care and to ask questions if they do not understand what they are told or what they should do.
--- NOTE | 2025-01-25 18:12 | PM.IMHP ---
H&P: HPI History of Present Illness Date/Time: 01/25/25 1600 Chief Complaint: Shortness of breath Narrative: 64-year-old female with a past medical history of HTN, RAISSA, anxiety, COPD presents to the ED on 01/25/2025 with complaints of shortness of breath on exertion. This has been ongoing for the past couple of days. She wears 2 L per nasal cannula with activity at home, but for the past couple days she has been wearing it all the time. She reports difficulty with walking around her house so she has been sleeping on the couch. Her dyspnea increases when she is lying down and with activity. She further endorses cold-like symptoms with sneezing and increased coughing. Denies fever, chills, chest pain. Was admitted on 12/05/2024 for 2 days for COPD exacerbation. Initial vital signs 148/85, HR 95, respirations 18, afebrile and 96% on 2 L ABG revealed pCO2 55.8, PO2 68.3, HC03 31.2, O2 sat 92.8 BNP 213, carbon dioxide 39, anion gap 2, BUN 18, alk-phos 136, viral PCR negative Chest x-ray with no acute cardiopulmonary abnormalities Review of Systems Review of Systems: All systems reviewed & are unremarkable except as noted in HPI and below PMFSH Past Medical History Medical History Hypertension Right hand dominant COPD (chronic obstructive pulmonary disease) RAISSA (obstructive sleep apnea) Screening for hyperlipidemia Nodule of left lung Major depressive disorder, recurrent, unspecified Essential hypertension Asthma with COPD (chronic obstructive pulmonary disease) Anxiety disorder, unspecified Family History Family History Mother Diabetes mellitus Heart attack Hypertension Father Heart attack Hypertension Smoker Social History Social History Smoking packs per day: 1.5 Smoking cigarettes per day: 30.0 Years smoked: 40 Smoking pack-years: 60.00 Smoking status: Former smoker Tobacco type: cigarettes Smoking end date: 12/31/23 Alcohol intake: unknown Substance use: never Substance use type: does not use Do You Feel Safe in your Home?: Yes Lack of Transportation: No Lack of Food: Never True Current Housing: I Have Housing Concerned About Future Housing: No Difficulty Paying Gas/Electric Bills: No Difficulty Paying for Meds: No Currently Unemployed: No Education: Decline to Answer Difficulty w/ Childcare or Family Care: No Spiritual care concerns: No Meds Home Medications and Allergies Home Medications ?Medication ?Instructions ?Recorded ?Confirmed ?Type albuterol sulfate 90 mcg/actuation 2 inhalation inhalation Q4H #8.5 02/17/19 01/25/25 Rx aerosol inhaler (ProAir HFA) grams budesonide-formoterol HFA 160 2 puff inhalation BID 09/08/19 01/25/25 History mcg-4.5 mcg/actuation aerosol inhaler (Symbicort) losartan 100 mg tablet 100 mg PO DAILY 06/13/22 01/25/25 History metoprolol tartrate 50 mg tablet 50 mg PO Q12H 06/13/22 01/25/25 History nortriptyline 50 mg capsule 50 mg PO DAILY 06/13/22 01/25/25 History tiotropium bromide 2.5 2 puff inhalation DAILY 1 month #4 11/15/23 01/25/25 Rx mcg/actuation mist for inhalation grams (Spiriva Respimat) buspirone 5 mg tablet See Rx Instructions .Route 08/07/24 01/25/25 Rx .COMPLEX #60 tabs nicotine 21 mg/24 hr daily 1 patch transdermal DAILY PRN 01/25/25 01/25/25 History transdermal patch cravings tirzepatide (weight loss) 10 10 mg subcut WEEKLY 01/25/25 01/25/25 History mg/0.5 mL subcutaneous pen injector (Zepbound) Allergies Allergy/AdvReac Type Severity Reaction Status Date / Time sertraline Allergy Intermediate Itching Verified 01/25/25 14:14 Sulfa (Sulfonamide Allergy Unknown Unknown Verified 01/25/25 14:14 Antibiotics) Vital Signs Vital Signs - 24 hr 01/25/25 09:08 01/25/25 09:30 01/25/25 11:21 Temperature 98.2 F Pulse Rate 95 96 Respiratory Rate 18 21 H Blood Pressure 148/85 H Pulse Oximetry 96 97 Oxygen Delivery Nasal Cannula Nasal Cannula Oxygen Flow Rate 2 2 01/25/25 11:25 01/25/25 11:27 01/25/25 12:03 Temperature Pulse Rate 94 93 Respiratory Rate 22 H 25 H Blood Pressure 112/70 Pulse Oximetry 95 98 Oxygen Delivery Nasal Cannula Oxygen Flow Rate 2 01/25/25 13:38 01/25/25 13:49 01/25/25 13:56 Temperature Pulse Rate 95 96 95 Respiratory Rate 24 H 20 20 Blood Pressure 119/84 Pulse Oximetry 90 Oxygen Delivery Oxygen Flow Rate 01/25/25 14:13 Temperature 97.0 F L Pulse Rate 101 H Respiratory Rate 20 Blood Pressure 120/75 Pulse Oximetry 94 Oxygen Delivery Oxygen Flow Rate Exam Narrative: GENERAL: non-toxic appearing, in no acute distress. HEAD: Normocephalic, atraumatic. EYES: PERRLA. Conjunctivae clear. NOSE: Normal no drainage. Nasal cannula in place at 3 L THROAT: Pharynx clear, no exudate. NECK: Trachea midline. Thyroid not palpable. No adenopathy, no masses. RESPIRATORY: Airway patent, respirations nonlabored. Expiratory wheezes with decreased air movement CARDIOVASCULAR: Regular rate and rhythm BREASTS: Defer GASTROINTESTINAL: Abdomen is soft and nontender. No organomegaly. Bowel sounds normal in all quadrants. GENITOURINARY: Defer MUSCULOSKELETAL: Moves all extremities. No gross deformities. No calf tenderness. SKIN: Warm, dry, normal color. NEURO: A&O X4. Speech clear PSYCHIATRIC: Normal interaction H&P: Results Labs Labs: Short CBC 01/25/25 Range/Units 10:16 WBC 9.1 (4.5-10.0) K/mm3 Hgb 13.3 (12.0-15.0) g/dL Hct 42.5 (37.0-47.0) % Plt Count 333 (150-375) k/mm3 [facility] 01/25/25 10:16 Sodium 135 L Potassium 4.0 Chloride 94 L Carbon Dioxide 39 H BUN 18 H Creatinine 0.73 Glucose 97 Calcium 9.4 Cardiac Enzymes 01/25/25 Range/Units 10:16 Troponin I < 0.012 (0.000-0.034) ng/mL Liver Function 01/25/25 Range/Units 10:16 Total Bilirubin 0.2 (0.2-1.3) mg/dL AST 21 (14-36) U/L ALT 14 (6-35) U/L Alkaline Phosphatase 136 H (38-126) U/L Albumin 3.9 (3.5-5.1) g/dL Assessment and Plan Assessment and plan (1) COPD exacerbation: Code(s): J44.1 - Chronic obstructive pulmonary disease with (acute) exacerbation Status: Acute Assessment and Plan: Patient presents with 2 days of increased shortness of breath. Wears 2 L with activity but has been wearing it continuously for the past 2 days. Also endorses cold-like symptoms with sneezing and increased coughing. Chest x-ray with no acute cardiopulmonary abnormalities. Patient currently wearing 3 L per nasal cannula. -treated with continuous nebulizer in ED -methylprednisolone 125 IV push once -continue supplemental O2. Wean to baseline as tolerated -DuoNeb Q 6 hours scheduled -continue home Symbicort, Spiriva (2) Hypertension: Qualifiers: Hypertension type: primary hypertension Qualified Code(s): I10 - Essential (primary) hypertension Code(s): I10 - Essential (primary) hypertension Status: Chronic Assessment and Plan: BP 148/85 on admit -continue metoprolol and losartan (3) Anxiety: Code(s): F41.9 - Anxiety disorder, unspecified Status: Chronic Assessment and Plan: Continue BuSpar and nortriptyline Plan Diet: Heart healthy GI prophylaxis: NA DVT prophylaxis: SCD lines/drains: PIV Fluids: NA Code status: Full Quality VTE Prophylaxis VTE prophylaxis: mechanical ordered Hospitalist [facility] Advance Care Plan I have confirmed that the patient's Advanced Care Plan is present, code status is documented, or surrogate decision maker is listed in patient medical record.: Yes Medication Reconciliation I have utilized all available resources to obtain, update and review the patients current medications (includes all prescriptions, OTC, herbals, cannabis, and nutritional supplements).: Yes
[2025-01-25] MEDS: METOPROLOL TARTRATE 50 MG TAB PO (20:42)
[2025-01-25] MEDS: FLUTICASONE/SALMETEROL 115-21 MCG INHALER 1 PUFF 2 PUFF INHALATION (20:58)
--- NOTE | 2025-01-25 21:03 | PCRCNOTE ---
Pt said she does not want to wear CPAP till she talks to her
[2025-01-26] VITALS (18 sets, daily range): BP systolic 118–136; BP diastolic 71–96; PULSE 86–105; RESP 16–25; TEMP 36.4–37.3; O2SAT 90–100
[2025-01-26] MEDS: IPRATROPIUM BR 0.02% INH SOLN 0.5 MG/2.5 ML VIAL INHALATION ×2 (02:02→08:12)
[2025-01-26] MEDS: ALBUTEROL SULFATE NEB 2.5 MG/3 ML INH INHALATION ×2 (02:03→08:12)
[2025-01-26 05:48] LABS: Hematocrit 40.3 % (37.0-47.0); Hemoglobin 12.8 g/dL (12.0-15.0); Immature Granulocyte Percent A 0.4 % (0-0.5); Lymphocytes Absolute Auto 1.26 K/mm3 (0.9-3.2); Mean Corpuscular HGB Conc 31.8 g/dl (32-36); Mean Corpuscular Hemoglobin 29.1 pg (26-34); Mean Corpuscular Volume 91.6 fl (80-100); Nucleated Red Blood Cells Absolute Auto 0.000 K/mm3 (0.0-0.012); Nucleated Red Blood Cells Perc 0.0 % (0.0-0.2); Platelet Count Result 331 k/mm3 (150-375); Red Blood Count 4.40 M/mm3 (4.2-5.4); White Blood Count 8.3 K/mm3 (4.5-10.0)
[2025-01-26 06:17] LABS: Alanine Aminotransferase 13 U/L (6-35); Albumin Level 3.7 g/dL (3.5-5.1); Alkaline Phosphatase 117 U/L (38-126); Anion Gap 4 mmol/L (4-12); Aspartate Amino Transferase 20 U/L (14-36); Bilirubin,Total 0.3 mg/dL (0.2-1.3); Blood Urea Nitrogen 14 mg/dL (7-17); Calcium 9.4 mg/dL (8.4-10.2); Carbon Dioxide 35 mmol/L (22-30); Chloride 94 mmol/L (98-107); Estimated CRCL calculation 78 ml/min; Estimated Glomerular Filt Rate > 60; Glucose 111 mg/dL (65-110); Potassium 4.3 mmol/L (3.4-5.0); Sodium 133 mmol/L (137-145); Total Protein 6.8 g/dL (6.3-8.2)
--- NOTE | 2025-01-26 07:34 | P.PNIM_ITS ---
Progress Note: A&P Assessment and Plan (1) COPD exacerbation: Code(s): J44.1 - Chronic obstructive pulmonary disease with (acute) exacerbation Status: Acute Assessment and Plan: methylprednisolone 125 IV push once continue supplemental O2. Wean to baseline as tolerated DuoNeb Q 6 hours scheduled continue home Symbicort, Spiriva Mucinex Daily prednisone Pulmonology consulted Azithromycin (2) Acute respiratory failure with hypoxemia: Code(s): J96.01 - Acute respiratory failure with hypoxia Status: Acute Assessment and Plan: Secondary to above Wean oxygen stable (3) Hypertension: Qualifiers: Hypertension type: primary hypertension Qualified Code(s): I10 - Essential (primary) hypertension Code(s): I10 - Essential (primary) hypertension Status: Chronic Assessment and Plan: continue metoprolol and losartan (4) Anxiety: Code(s): F41.9 - Anxiety disorder, unspecified Status: Chronic Assessment and Plan: Continue BuSpar and nortriptyline Plan Diet: Heart healthy GI prophylaxis: NA DVT prophylaxis: SCD lines/drains: PIV Fluids: NA Code status: [employer] Spent With Patient Time with patient: Greater than 35 minutes Subjective Date/time seen: 01/26/25 07:34 Interval history: 64-year-old female with a past medical history of HTN, RAISSA, anxiety, COPD presents to the ED on 01/25/2025 with complaints of shortness of breath on exertion, She wears 2 L per nasal cannula with activity at home. Patient states that her breathing is better this morning, she is still having expiratory wheezes. She does complain of green sputum will start her on antibiotics. Review of Systems Review of Systems: 12 systems were reviewed and are negativ e except for as per HPI. Exam Narrative: General: well appearing, appears stated age. HEENT: normocephalic, atraumatic. Mucous membranes moist. EOMI, PERRLA, b ilateral sclera anicteric, no conjunctival injection. Neck supple without JVD, lymphadenopathy, or bruit. Respiratory: Diminished, expiratory wheezes Cardiovascular: Regular rate and rhythm, normal S1-S2 upon ascultation. No murmurs, rubs, or clicks. PMI is nondisplaced, capillary refill less than 3 second. Abdomen: Obese Soft, round, no pulsatile masses, nondistended and nontender. No rebound, no guarding. Bowel sounds present to all four quadrants. No high pitch or tinkling sounds, resonant to percussion. Extremities: No cyanosis, clubbing, or edema present. Pulses are palpable 2/2. Active ROM to all four extremities. Neuro: Alert and orientated x 4. PERRLA. Cranial nerves 2-12 intact without focal deficit. Skin: Warm, dry, and intact, without rash, erythema, or lesion. Psych: pleasant, cooperative, normal speech, normal affect, no hallucinations, no dysarthia 2 L nasal cannula Objective Data Vital Signs Vital Signs: Vital Signs - 24 hr 01/25/25 09:08 01/25/25 09:30 01/25/25 11:21 Temperature 98.2 F Pulse Rate 95 96 Respiratory Rate 18 21 H Blood Pressure 148/85 H Pulse Oximetry 96 97 Oxygen Delivery Nasal Cannula Nasal Cannula Oxygen Flow Rate 2 2 01/25/25 11:25 01/25/25 11:27 01/25/25 12:03 Temperature Pulse Rate 94 93 Respiratory Rate 22 H 25 H Blood Pressure 112/70 Pulse Oximetry 95 98 Oxygen Delivery Nasal Cannula Oxygen Flow Rate 2 01/25/25 13:38 01/25/25 13:49 01/25/25 13:56 Temperature Pulse Rate 95 96 95 Respiratory Rate 24 H 20 20 Blood Pressure 119/84 Pulse Oximetry 90 Oxygen Delivery Oxygen Flow Rate 01/25/25 14:13 01/25/25 20:00 01/25/25 20:39 Temperature 97.0 F L 97.2 F L Pulse Rate 101 H 105 H 118 H Respiratory Rate 20 20 22 H Blood Pressure 120/75 106/80 Pulse Oximetry 94 93 90 Oxygen Delivery Nasal Cannula Oxygen Flow Rate 2 01/25/25 20:58 01/25/25 21:08 01/25/25 21:11 Temperature Pulse Rate 119 H 119 H 114 H Respiratory Rate 20 20 Blood Pressure Pulse Oximetry 91 Oxygen Delivery Oxygen Flow Rate 01/26/25 02:04 01/26/25 02:13 01/26/25 04:53 Temperature 97.6 F Pulse Rate 96 99 101 H Respiratory Rate 20 20 16 Blood Pressure 136/71 Pulse Oximetry 100 Oxygen Delivery Oxygen Flow Rate Intake/Output Intake/Output: Intake & Output 01/23/25 01/24/25 01/25/25 01/26/25 23:59 23:59 23:59 23:59 Intake Total 790 550 Balance 790 550 Meds/Results Medications: Active Medications Generic Name Dose Route Start Last Admin Trade Name Elvisq PRN Reason Stop Dose Admin Acetaminophen 650 mg 01/25/25 12:48 Acetaminophen 325 Mg Tablet PO Q4H PRN Mild Pain (1-3) or Fever Albuterol 2.5 mg 01/25/25 14:00 01/26/25 02:03 Albuterol Sulfate Neb 2.5 Mg/3 Ml Inh INHALATION 2.5 mg Q6HRT ARGELIA Administration Buspirone HCl 5 mg 01/25/25 17:00 01/25/25 17:03 Buspirone Hcl 5 Mg Tablet BY MOUTH 5 mg BID ARGELIA Administration Ipratropium [place] 0.5 mg 01/25/25 14:00 01/26/25 02:02 Ipratropium Br 0.02% Inh Soln 0.5 Mg/2.5 Ml Vial INHALATION 0.5 mg Q6HRT ARGELIA Administration Losartan Potassium 100 mg 01/26/25 09:00 Losartan Potassium 100 Mg Tablet PO DAILY [facility] Metoprolol Tartrate 50 mg 01/25/25 21:00 01/25/25 20:42 Metoprolol Tartrate 50 Mg Tab PO 50 mg Q12H ARGELIA Administration Nicotine 1 patch 01/25/25 15:46 Nicotine (*Pbkc) 21 Mg Patch TRANSDERM DAILY PRN cravings Nortriptyline HCl 50 mg 01/26/25 09:00 Nortriptyline Hcl 25 Mg Capsule PO DAILY [facility] Ondansetron HCl 4 mg 01/25/25 12:48 Ondansetron Inj 4 Mg/2 Ml Vial IV PUSH Q4H PRN Nausea Prednisone 60 mg 01/26/25 08:00 Prednisone 20 Mg Tablet PO DAILY@08 [facility] Fluticasone/Salmeterol 2 puff 01/25/25 20:00 01/25/25 20:58 Fluticasone/Salmeterol 115-21 Mcg Inhaler 1 Puff INHALATION 2 puff Q12HRT [facility] Administration Umeclidinium [place] 1 puff 01/26/25 09:00 Umeclidinium [place] 62.5 Mcg Ellipta INHALATION DAILY [facility] Radiology Results: ITS Impressions Chest X-Ray 01/25/25 10:40 Impression: No acute cardiopulmonary abnormality. Labs Labs: Laboratory Results - last 24 hr 01/25/25 01/25/25 01/25/25 09:38 10:16 10:26 WBC 9.1 RBC 4.60 Hgb 13.3 Hct 42.5 MCV 92.4 MCH 28.9 MCHC 31.3 L RDW 14.3 Plt Count 333 MPV 9.4 Immature Gran % (Auto) 0.2 Neut % (Auto) 71.3 Lymph % (Auto) 17.0 L [place] % (Auto) 6.4 Eos % (Auto) 4.7 H Baso % (Auto) 0.4 Lymph # (Auto) 1.54 [place] # (Auto) 0.6 Eos # (Auto) 0.4 H Baso # (Auto) 0.0 Abs Immat Gran (auto) 0.02 Absolute Neuts (auto) 6.5 Absolute Nucleated RBC 0.000 Nucleated RBC % 0.0 PT 13.3 INR 1.0 APTT 30.9 Puncture Site Right radial ABG pH 7.365 ABG pCO2 55.8 H ABG pO2 68.3 L ABG PO2/FiO2 Ratio 3.25 ABG HCO3 31.2 H ABG O2 Saturation 92.8 L ABG O2 Content 18.5 ABG Base Excess 4.3 A-a Gradient 14.6 Oxyhemoglobin 91.2 Total Hemoglobin 14.4 O2 Delivery Device Nasal cannula O2 Liters/Min 2.0 FiO2 28 Sodium 135 L Potassium 4.0 Chloride 94 L Carbon Dioxide 39 H Anion Gap 2 L BUN 18 H Creatinine 0.73 Estim Creat Clear Calc 71 Estimated GFR > 60 Glucose 97 Calcium 9.4 Magnesium 2.0 Total Bilirubin 0.2 AST 21 ALT 14 Alkaline Phosphatase 136 H Troponin I < 0.012 NT-Pro-B Natriuret Pep 213 H Total Protein 7.1 Albumin 3.9 Influenza A (RT-PCR) Negative Influenza B (RT-PCR) Negative RSV (RT-PCR) Negative SARS-CoV-2 RNA (RT-PCR) Negative 01/26/25 05:09 WBC 8.3 RBC 4.40 Hgb 12.8 Hct 40.3 MCV 91.6 MCH 29.1 MCHC 31.8 L RDW 14.1 Plt Count 331 MPV 9.6 Immature Gran % (Auto) 0.4 Neut % (Auto) 77.4 H Lymph % (Auto) 15.2 L [place] % (Auto) 6.9 Eos % (Auto) 0.0 Baso % (Auto) 0.1 L Lymph # (Auto) 1.26 [place] # (Auto) 0.6 Eos # (Auto) 0.0 Baso # (Auto) 0.0 Abs Immat Gran (auto) 0.03 Absolute Neuts (auto) 6.4 Absolute Nucleated RBC 0.000 Nucleated RBC % 0.0 PT INR APTT Puncture Site ABG pH ABG pCO2 ABG pO2 ABG PO2/FiO2 Ratio ABG HCO3 ABG O2 Saturation ABG O2 Content ABG Base Excess A-a Gradient Oxyhemoglobin Total Hemoglobin O2 Delivery Device O2 Liters/Min FiO2 Sodium 133 L Potassium 4.3 Chloride 94 L Carbon Dioxide 35 H Anion Gap 4 BUN 14 Creatinine 0.65 L Estim Creat Clear Calc 78 Estimated GFR > 60 Glucose 111 H Calcium 9.4 Magnesium Total Bilirubin 0.3 AST 20 ALT 13 Alkaline Phosphatase 117 Troponin I NT-Pro-B Natriuret Pep Total Protein 6.8 Albumin 3.7 Influenza A (RT-PCR) Influenza B (RT-PCR) RSV (RT-PCR) SARS-CoV-2 RNA (RT-PCR) Quality VTE Prophylaxis VTE prophylaxis: mechanical ordered and pharmacologic ordered Hospitalist [facility] Medication Reconciliation I have utilized all available resources to obtain, update and review the patients current medications (includes all prescriptions, OTC, herbals, cannabis, and nutritional supplements).: Yes
[2025-01-26] MEDS: FLUTICASONE/SALMETEROL 115-21 MCG INHALER 1 PUFF 2 PUFF INHALATION (08:12)
[2025-01-26] MEDS: NORTRIPTYLINE HCL 25 MG CAPSULE 50 MG PO (09:49)
[2025-01-26] MEDS: guaiFENesin 12 HR 600 MG TABCR 1200 MG PO ×2 (09:50→20:55)
[2025-01-26] MEDS: LOSARTAN POTASSIUM 100 MG TABLET PO (09:50)
[2025-01-26] MEDS: METOPROLOL TARTRATE 50 MG TAB PO ×2 (09:50→20:55)
[2025-01-26] MEDS: AZITHROMYCIN 250 MG/NS 250 ML 250 MG/250 ML BAG IVPB (11:09)
--- NOTE | 2025-01-26 12:06 | P.CONPL_ITS ---
Assessment and Plan Assessment and plan (1) COPD exacerbation: Code(s): J44.1 - Chronic obstructive pulmonary disease with (acute) exacerbation Status: Acute Assessment and Plan: GOLD grade 4 group E COPD patient with a 60 pack year tobacco use, quit 12/31/2023. 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 PFTs 11/06/2023 with an FEV1 0.54, 25% predicted, FEV1: FVC ratio 40%. Air trapping, moderately decreased DLCO that corrected for alveolar volume. CT scan of the chest 11/18/2024 with moderate apical predominant centrilobular emphysema. Chronic hypoxemic respiratory failure requiring no oxygen at rest and 2 L with activity. On a good day she can walk room to room. Inpatient exacerbation 12/05/2024 through 12/07/2024. She is maintained on triple inhalers. Eosinophil count on 12/05/2024 was 450 per micro L. patient presents now with incomplete recovery after her last exacerbation from 12/07/2024 with a 7 day history of upper respiratory symptoms, worsening wheezing, increased cough with green phlegm and worsening dyspnea on exertion. I will treat the patient for COPD exacerbation. Plan: Patient is improved on prednisone 60 mg p.o. q.day and I will continue this, day 2 of steroids. I will increase the frequency of her DuoNebs to q.4 hours which will provide maximal beta agonist and muscarinic antagonist. I will discontinue all other inhalers. I will continue guaifenesin 1200 mg p.o. q.day. I will send respiratory pathogen panel, urine Legionella, urine pneumococcal, serum mycoplasma IgM looking for infectious etiologies of her COPD exacerbation. I will obtain a CT scan of the chest looking for evidence of pneumonia. I will continue azithromycin at this time and broaden her coverage if there is evidence of a pneumonia on her CT scan. I will send an MRSA nasal swab. Will follow with you. (2) Obstructive sleep apnea: Code(s): G47.33 - Obstructive sleep apnea (adult) (pediatric) Status: Acute Assessment and Plan: Regarding her obstructive sleep apnea. Patient is set up with a CPAP 15 with 1 L bleed in through [facility]. She has been wearing this but has noticed her fullface mask leaks and is sometimes uncomfortable. Sometimes she gets a good night's sleep and sometimes she does not. She has not been wearing it for the last 1-2 weeks because of her current illness. 01/26/2025: Plan: I will place the patient on CPAP 15 with 1 L bleed and obtain an overnight oximetry to assess her oxygenation on these settings. Patient will try to have her son bring in her home machine so that we can try this on and make sure it works well for her while she is in the hospital. I will obtain a download from [facility]. History of Present Illness History of Present Illness Consult date: 01/26/25 Chief complaint: copd exacerbation Narrative: 01/26/2025: This is a new pulmonary consult for COPD exacerbation. 64-year-old with a history of COPD on 3 L oxygen at night, obstructive sleep apnea on CPAP with 2 L bleed in, hypertension, anxiety and depression. Patient is followed in the Pulmonary Clinic and last see on 05/06/2024: This is a copy of that note ESTABLISHED: Sherri Ramirez is a 63-year-old woman with COPD, O2 use, lung cancer. She was in hospital Apr 01, still not smoking since Nov, maybe one on occasion she had a cigarette. This is great news. She is feeling much better now, was not completely well at discharge, about 60% better. Now, today, sat is 94% on room air. She has POC with her. For COPD, she is using Symbicort 160/4.5, 2 puffs bid and Spiriva 2.5 mcg, 2 puffs daily, p.r.n.albuterol, not often. Sleep study - pending we talked about mask desensitization. This can help tremendously getting used to the mask, and decreasing anxiety about using PAP with sleep. Her lung cancer is stable, sees Dr Fields and Dr Watkins. plan: Continue Symbicort 160-4.52 puffs b.i.d., Spiriva 2 puffs q.day which helped a lot. She almost uses no p.r.n. albuterol. Check an DODIE cascade. Her shortness of breath is more manageable now she is limited as far as which he can do at home. Portable oxygen helps and she will continue to use with exertion to maintain saturations 90-94%. She is using 3 L with exertion and room air rash. Regarding her lung cancer she was not a surgical CT of 8. Completed radiation [address] scan 03/30/2024. Regarding her hypersomnia split night sleep study was planned. 10/21/2024:CPAP titration. Wilton score 3. Weight 93.4 kg. Assessment and plan: Challenging study. The highest pressure CPAP 15 with 2 L oxygen for 39 minutes with a residual AHI of 0. We recommend overnight oximetry and 2-3 weeks. Large number of limb movements however these did not cause arousals. Patient smoked tobacco for 40 years at 1 and half pack per day for total of 60 pack years. She quit on 12/31/2023. She denies vaping, illicit drug use, or marijuana use. On a good day the patient can walk room to room. 12/05/2024 through 12/07/2024: Admitted to [facility] with a COPD exacerbation and treated with Solu-Medrol, bronchodilators, Levaquin and discharged on a prednisone taper and azithromycin. The patient tells me she finished her medicine but never completely recovered. She said she had shortness of breath at rest and dyspnea on exertion, fatigue and weakness with no wheezing and no phlegm. On 01/19/2025 the patient developed sneezing, coughing, sinus congestion and shortness of breath at rest and with exertion. She was sleeping on her couch. Usually she wears no oxygen at rest but she was wearing oxygen. She took some Mucinex continued her inhalers and improved by 01/22/2025. That day she when shopping and the next day she felt much worse with rest shortness of breath, worsening dyspnea on exertion to across the room, increased cough with green phlegm, wheezing no hemoptysis no fever. Patient presented to the emergency room on 01/25/2025 with expiratory wheezes. Her blood pressure is 148/85, heart rate 95, 2 L nasal cannula saturations 96%. White blood cell count 9.1, eosinophils 4.7% equal 364 per micro L. Creatinine 0.73, BNP 213. COVID influenza and RSV RT PCR assay negative. Chest x-ray with no active disease. ABG on 2 L 7.37/57/68. Patient admitted with COPD exacerbation treated with Solu-Medrol and bronchodilators. 01/26/2025: patient tells me she has improved today. She states she is breathing 50% back to her normal. She has a dry cough. She has improved wheezes and improved dyspnea on exertion. When I enter the room she was on 2 L nasal cannula saturations 96%. I decreased her to room air and she had saturations of 88% after 7 minutes. I placed her on 1 L nasal cannula saturations 93%. She is afebrile. White blood cell count 8.3, creatinine 0.65. Azithromycin was added for tracheobronchitis. Regarding her obstructive sleep apnea. Patient is set up with a CPAP 15 with 1 L bleed in through [facility]. She has been wearing this but has noticed her fullface mask leaks and is sometimes uncomfortable. Sometimes she gets a good night's sleep and sometimes she does not. She has not been wearing it for the last 1-2 weeks because of her current illness. DATA: 11/19/2024: Clinical Indication: Neoplasm CT Scan of the Chest with Contrast: Technique: Contiguous sections were acquired throughout the chest after intravenous administration of 75 cc of Omnipaque 350. Dose reduction technique was used on this scan by utilizing automated exposure control and iterative reconstruction technique. The dose-length product (DLP) was 879.73 mGy-cm. COMPARISON: 06/30/2024 Findings: There is no evidence of any significant mediastinal, hilar or axillary lymphadenopathy. There is no filling defect in the pulmonary arterial tree to suggest pulmonary embolus. There is no evidence of aortic dissection or aneurysm. There is no evidence of pleural or pericardial effusion. Stable probable post treatment change and/or scarring in the left upper lobe peripherally. There is moderate upper lobe emphysema. Images through the upper abdomen reveal no abnormalities. Impression: Stable posttreatment change or scarring in the left upper lobe. Moderate upper lobe emphysema. 04/02/2024: Echo Summary 1. Left ventricular chamber dimension is normal. 2. Left ventricular systolic function is hyperdynamic with an ejection fraction by Biplane Method of Discs of 61 %. 3. There is no increased left ventricular wall thickness. 4. Left ventricular wall motion is normal. 5. The left ventricular diastolic function is grade I diastolic dysfunction. 6. Right ventricular chamber dimension is normal. 7. Right ventricular systolic function is normal. 8. Normal inferior vena cava with >50% collapse upon inspiration consistent with normal right atrial pressure, 3 mmHg. Right Ventricle Right ventricular chamber dimension is normal. Right ventricular systolic function is normal. Right Atria Right atrial chamber dimension is normal. PASP cannot be calculated because of no TR seen. 11/06/2023: This is a pulmonary function test with pre and post-bronchodilator spirometry, plethysmography and diffusing capacity. The test was performed and results interpreted in accordance with the 2019 and 2005 ATS/ERS Task Force guidelines respectively using the Global Lung Function Initiative-2012 reference equations. Patient demonstrated good effort and cooperation. Reproducibility criteria were met. The quality of the pre bronchodilator spirometry maneuver was Grade A and post bronchodilator spirometry maneuver was Grade A. Findings: Spirometry: There is decreased maximal expiratory airflow at all lung volumes with concave expiratory flow tracing. The contour the expiratory flow tracing demonstrates a reproducible oscillating or saw tooth pattern. The contour the inspiratory flow tracing is normal. The pre bronchodilator FVC is 1.33 L, 50% predicted. The pre bronchodilator FEV1 is 0.54 L, 25% predicted. The pre bronchodilator FEV1: FVC ratio is 40%. The post bronchodilator FVC is 1.41 L, representing a 6% increase. The post bronchodilator FEV1 is 0.48 L, representing a 10% decrease. The post bronchodilator FEV1: FVC ratio is 34%. Plethysmography: The total lung capacity is 6.37 L, 144% predicted. The functional residual capacity is 3.36 L, 135% predicted. The residual volume is 3.33 L, 183% predicted. The residual volume: Total lung capacity ratio is 52%. Diffusing capacity: The diffusing capacity unadjusted for hemoglobin and carboxyhemoglobin is 9.4, 48% predicted. The diffusing capacity adjusted for alveolar volume is 3.85, 84% predicted. Impression: The contour the expiratory flow tracing demonstrates a reproducible oscillating or sawtooth pattern. This is usually generated either by air flow disturbances in the upper airway or from tremors of the respiratory muscles. This has been associated with sleep apnea, obesity, snorers without obstructive sleep apnea, upper airway injury, upper airway stenosis, tracheobronchomalacia, neuromuscular disorders with bulbar involvement, burn injury of the upper airway, diaphragmatic myoclonus, and herpes zoster of abdominal muscles. Clinical correlation is recommended. There is a very severe obstructive abnormality. There is no significant improvement after inhaling a single dose of albuterol. The increase in residual volume to total lung volume ratio is consistent with hyperinflation from an obstructive abnormality. The diffusing capacity unadjusted for hemoglobin and carboxyhemoglobin is moderately decreased and normalizes when adjusted for alveolar volume. There are no prior studies for comparison Review of Systems 2 Constitutional: Constitutional: Reports no additional constitutional complaints Eyes: Eyes: Reports no additional eye complaints ENT: Reports system reviewed and no additional complaints, except as documented Cardiovascular: Cardiovascular: Reports no additional cardiovascular complaints Respiratory: Respiratory: Reports no additional respiratory complaints Gastrointestinal: Gastrointestinal: Reports no additional gastrointestinal complaints Musculoskeletal: Musculoskeletal: Reports no additional musculoskeletal complaints Neurologic: Reports system reviewed and no additional complaints, except as documented Psychiatric: Psychiatric: Reports no additional psychiatric complaints Endocrine: Endocrine: Reports no additional endocrine complaints Hematologic/Lymphatic: Hematologic/Lymphatic: Reports no additional hematologic/lymphatic complaints Allergic/Immunologic: Allergic/Immunologic: Reports no additional allergic/immunologic complaints FOR[facility]LY [facility] Past Medical History Medical History Hypertension Right hand dominant COPD (chronic obstructive pulmonary disease) RAISSA (obstructive sleep apnea) Screening for hyperlipidemia Nodule of left lung Major depressive disorder, recurrent, unspecified Essential hypertension Asthma with COPD (chronic obstructive pulmonary disease) Anxiety disorder, unspecified Family History Family History Mother Diabetes mellitus Heart attack Hypertension Father Heart attack Hypertension Smoker Social History Social History Smoking packs per day: 1.5 Smoking cigarettes per day: 30.0 Years smoked: 40 Smoking pack-years: 60.00 Smoking status: Former smoker Tobacco type: cigarettes Smoking end date: 12/31/23 Alcohol intake: unknown Substance use: never Substance use type: does not use Do You Feel Safe in your Home?: Yes Lack of Transportation: No Lack of Food: Never True Current Housing: I Have Housing Concerned About Future Housing: No Difficulty Paying Gas/Electric Bills: No Difficulty Paying for Meds: No Currently Unemployed: No Education: Decline to Answer Difficulty w/ Childcare or Family Care: No Spiritual care concerns: No Meds Home Medications and Allergies Home Medications ?Medication ?Instructions ?Recorded ?Confirmed ?Type albuterol sulfate 90 mcg/actuation 2 inhalation inhala tion Q4H #8.5 02/17/19 01/25/25 Rx aerosol inhaler (ProAir HFA) grams budesonide-formoterol HFA 160 2 puff inhalation BID 01/25/25 History mcg-4.5 mcg/actuation aerosol inhaler (Symbicort) losartan 100 mg tablet 100 mg PO DAILY 06/13/22 History metoprolol tartrate 50 mg tablet 50 mg PO Q12H 3 01/25/25 History nortriptyline 50 mg capsule 50 mg PO DAILY 06/13/22 History tiotropium bromide 2.5 2 puff inhalation DAILY 1 mo nth #4 11/15/23 01/25/25 Rx mcg/actuation mist for inhalation grams (Spiriva Respimat) buspirone 5 mg tablet See Rx Instructions .Route 0 08/07/24 01/25/25 Rx .COMPLEX #60 tabs nicotine 21 mg/24 hr daily 1 patch transdermal DAILY P RN 01/25/25 01/25/25 History transdermal patch cravings tirzepatide (weight loss) 10 10 mg subcut WEEKLY 01/2501/25/25 History mg/0.5 mL subcutaneous pen injector (Zepbound) Allergies Allergy/AdvReac Type Severity Reaction Status Date / Time sertraline Allergy Intermediate Itching Verified 01/25/25 14:14 Sulfa (Sulfonamide Allergy Unknown Unknown Verified 01/25/25 14:14 Antibiotics) Vital Signs Vital Signs - 24 hr 01/25/25 13:38 01/25/25 13:49 01/25/25 13:56 Temperature Pulse Rate 95 96 95 Respiratory Rate 24 H 20 20 Blood Pressure 119/84 Pulse Oximetry 90 Oxygen Delivery Oxygen Flow Rate 01/25/25 14:13 01/25/25 20:00 01/25/25 20:39 Temperature 36.1 C L 36.2 C L Pulse Rate 101 H 105 H 118 H Respiratory Rate 20 20 22 H Blood Pressure 120/75 106/80 Pulse Oximetry 94 93 90 Oxygen Delivery Nasal Cannula Oxygen Flow Rate 2 01/25/25 20:58 01/25/25 21:08 01/25/25 21:11 Temperature Pulse Rate 119 H 119 H 114 H Respiratory Rate 20 20 Blood Pressure Pulse Oximetry 91 Oxygen Delivery Oxygen Flow Rate 01/26/25 02:04 01/26/25 02:13 01/26/25 04:53 Temperature 36.4 C Pulse Rate 96 99 101 H Respiratory Rate 20 20 16 Blood Pressure 136/71 Pulse Oximetry 100 Oxygen Delivery Oxygen Flow Rate 01/26/25 08:00 01/26/25 08:14 01/26/25 08:16 Temperature Pulse Rate 96 Respiratory Rate 20 Blood Pressure Pulse Oximetry 93 93 Oxygen Delivery Nasal Cannula Nasal Cannula Oxygen Flow Rate 2 2 01/26/25 08:20 01/26/25 09:50 Temperature Pulse Rate 99 99 Respiratory Rate 20 Blood Pressure Pulse Oximetry Oxygen Delivery Oxygen Flow Rate Exam 2 Const: General: cooperative, healthy appearing and comfortable O rientation/consciousness: oriented to person, oriented to place and oriented to time HENMT: Head: normal to inspection Ears: hearing grossly normal bilaterally Eyes: General: appearance normal, both eyes and all related structures Neck: Neck: normal visual inspection Chest: Chest palpation & inspection: normal inspection of the chest Resp: Effort & Inspection: normal respiratory effort and able to speak in complete sentences Auscultation: no crackles, no rales, no rhonchi, wheezes and lung sounds not diminished Other: End expiratory wheezes bilaterally Cardio: Jugular venous distension: no JVD GI: Inspection: normal to inspection GI Palp: No abdominal tenderness Skin: General skin exam: normal color Neuro: General: oriented to person, oriented to place and oriented to time Extrem: General: normal to inspection and no edema Psych: Appearance: grossly normal Results Laboratory Findings 01/26/25 05:09 01/26/25 05:09 ABG, PT/INR, D-dimer: ABG ABG pH 7.365 (7.350-7.450) 01/25/25 09:38 ABG pCO2 55.8 mmHg (35.0-45.0) H 01/25/25 09:38 ABG pO2 68.3 mmHg (80.0-100.0) L 01/25/25 09:38 ABG O2 Saturation 92.8 % (95.0-100.0) L 01/25/25 09:38 PT/INR, D-dimer PT 13.3 Seconds (11.1-14.7) 01/25/25 10:16 INR 1.0 01/25/25 10:16 Abnormal lab findings: Abnormal Labs 01/25/25 01/25/25 01/26/25 09:38 10:16 05:09 MCHC 31.3 L 31.8 L Neut % (Auto) 77.4 H Lymph % (Auto) 17.0 L 15.2 L Eos % (Auto) 4.7 H Baso % (Auto) 0.1 L Eos # (Auto) 0.4 H ABG pCO2 55.8 H ABG pO2 68.3 L ABG HCO3 31.2 H ABG O2 Saturation 92.8 L Sodium 135 L 133 L Chloride 94 L 94 L Carbon Dioxide 39 H 35 H Anion Gap 2 L BUN 18 H Creatinine 0.65 L Glucose 111 H Alkaline Phosphatase 136 H NT-Pro-B Natriuret Pep 213 H
[2025-01-26 15:51] LABS: MRSA (PCR) NOT DETECTED (NOT DETECTE)
[2025-01-26] MEDS: IPRATROPIUM 0.5 MG/ALBUTEROL SULFATE 2.5 MG (BASE) AMPUL.NEB 3 ML INHALATION ×3 (17:02→23:09)
[2025-01-26] MEDS: ACETAMINOPHEN 325 MG TABLET 650 MG PO (20:56)
[2025-01-27] VITALS (13 sets, daily range): BP systolic 118; BP diastolic 73; PULSE 80–101; RESP 18–26; TEMP 36.8; O2SAT 84–95
[2025-01-27 06:22] LABS: CRP < 0.5 mg/dL (<1.0)
[2025-01-27 06:33] LABS: Procalcitonin 0.0 ng/mL
[2025-01-27] MEDS: IPRATROPIUM 0.5 MG/ALBUTEROL SULFATE 2.5 MG (BASE) AMPUL.NEB 3 ML INHALATION ×2 (07:25→11:52)
--- NOTE | 2025-01-27 07:37 | P.PNIM_ITS ---
Progress Note: A&P Assessment and Plan (1) Chronic respiratory failure: Code(s): J96.10 - Chronic respiratory failure, unspecified whether with hypoxia or hypercapnia Status: Acute Assessment and Plan: 2/2 COPD Baseline O2: 2L NC (2) COPD exacerbation: Code(s): J44.1 - Chronic obstructive pulmonary disease with (acute) exacerbation Status: Acute Assessment and Plan: Chest XR: unremarkable Chest CT: Mild to moderate upper lung emphysema with chronic atel ectasis/scarring the left upper lobe and new mild discoid atelectasis in the right lower lobe. No pneumonia or other acute cardiopulmonary disease. Azithromycin 500mg Duonebz q4H Prednisone 60 mg daily MRSA, covid, RSV and flu negative CT shows no sings of acute infection, results as above Send respiratory pathogen panel, urine Legionella, urine pneumococcal, serum mycoplasma IgM looking for infectious etiologies of her COPD exacerbation. Monitor vital signs, I&Os, neuro status and patient is a fall risk Monitor serum electrolytes, cultures and CBC Monitor Oxygen saturation, Oxygen via NC; wean oxygen as tolerated, keep SpO2 greater than 88% Pulmonology consulted Continue prednisone 60 mg p.o. q.day, day 2 of steroids. Increase the frequency of her DuoNebs to q.4 hours, discontinue all other inhalers. Continue guaifenesin 1200 mg p.o. q.day. (3) Obstructive sleep apnea: Code(s): G47.33 - Obstructive sleep apnea (adult) (pediatric) Status: Acute Assessment and Plan: Chronic Apnea link on 01/26 overnight showed < 88% sat for 313 min Pulmonology consulted (4) Hypertension: Qualifiers: Hypertension type: primary hypertension Qualified Code(s): I10 - Essential (primary) hypertension Code(s): I10 - Essential (primary) hypertension Status: Chronic Assessment and Plan: Chronic, continue home medications - metoprolol 50 mg BID - losartan 100 mg daily - blood pressures stable, continue to monitor (5) Anxiety: Code(s): F41.9 - Anxiety disorder, unspecified Status: Chronic Assessment and Plan: Continue BuSpar and nortriptyline Subjective Date/time seen: 01/27/25 07:37 Interval history: 64 year old female with past medical history of chronic respiratory failure secondary to COPD on 2L NC baseline, RAISSA uses CPAP, HTN, HLD, and depression/anxiety presents to the hospital for shortness of breath. Review of Systems Review of Systems: All systems reviewed & are unremarkable except as noted in HPI and below Exam Narrative: AF General: well nourished, well-developed female in no acute respiratory distress who is nontoxic appearing, lying semi recumbent in bed. HEENT: Normocephalic. Atraumatic. Pupils equal round reactive to light. Extraocular movement intact. Sclera clear and anicteric. Nares patent. No oral lesions. Moist mucous membranes. Tongue is midline. Palate mark symmetrically. No facial asymmetry. Neck: Neck was supple. No dominant adenopathy, thyromegaly or masses. 2+ carotid upstrokes without bruits. Chest: Lungs are clear to auscultation bilaterlly. No wheezes or crackles. CV: Heart was regular rate and rhythm. S1-S2. No murmurs, gallops, or rubs. Abd: Abdomen was soft. Nontender. Nondistended. Postive bowel sounds. No organomegaly or masses. Ext: No clubbing, cyanosis, or edema. 2+ DP pulses bilaterally. Neuro: Patient is alert and oriented x4. Strenth is 5/5 in both upper and lower extremities. Cranial nerves 2-12 are intact. Speech is clear. Psych: Normal nood and affect. Patient is pleasant and cooperative. Skin: Warm and dry. No rashes noted. Objective Data Vital Signs Vital Signs: Vital Signs - 24 hr 01/26/25 08:00 01/26/25 08:14 01/26/25 08:16 Temperature Pulse Rate 96 Respiratory Rate 20 Blood Pressure Pulse Oximetry 93 93 Oxygen Delivery Nasal Cannula Nasal Cannula Oxygen Flow Rate 2 2 01/26/25 08:20 01/26/25 09:50 01/26/25 14:00 Temperature 97.6 F Pulse Rate 99 99 96 Respiratory Rate 20 18 Blood Pressure 120/96 H Pulse Oximetry 97 Oxygen Delivery Oxygen Flow Rate 01/26/25 17:04 01/26/25 17:09 01/26/25 20:00 Temperature Pulse Rate 92 100 Respiratory Rate 20 20 Blood Pressure Pulse Oximetry 95 Oxygen Delivery Nasal Cannula Oxygen Flow Rate 1 01/26/25 20:16 01/26/25 20:28 01/26/25 20:28 Temperature 99.2 F Pulse Rate 105 H 104 H Respiratory Rate 16 16 Blood Pressure 118/94 H Pulse Oximetry 90 95 Oxygen Delivery Oxygen Flow Rate 1 01/26/25 20:33 01/26/25 20:55 01/26/25 23:10 Temperature Pulse Rate 101 H 100 86 Respiratory Rate 16 25 H Blood Pressure Pulse Oximetry 92 Oxygen Delivery CPAP Oxygen Flow Rate 01/26/25 23:10 01/26/25 23:28 01/27/25 04:39 Temperature 98.3 F Pulse Rate 86 90 89 Respiratory Rate 25 H 25 H 18 Blood Pressure 118/73 Pulse Oximetry 95 Oxygen Delivery Oxygen Flow Rate 01/27/25 05:22 01/27/25 07:25 01/27/25 07:25 Temperature Pulse Rate 85 Respiratory Rate 26 H 20 Blood Pressure Pulse Oximetry 90 Oxygen Delivery CPAP Nasal Cannula Oxygen Flow Rate 2 Intake/Output Intake/Output: Intake & Output 01/24/25 01/25/25 01/26/25 01/27/25 23:59 23:59 23:59 23:59 Intake Total 790 2370 50 Output Total 200 Balance 790 2170 50 Meds/Results Medications: Active Medications Generic Name Dose Route Start Last Admin Trade Name Freq PRN Reason Stop Dose Admin Acetaminophen 650 mg 01/25/25 12:48 01/26/25 20:56 Acetaminophen 325 Mg Tablet PO 650 mg Q4H PRN Administration Mild Pain (1-3) or Fever Albuterol/Ipratropium 3 ml 01/26/25 16:00 01/27/25 07:25 Ipratropium 0.5 Mg/Albuterol Sulfate 2.5 Mg (Base) Ampul.Neb 3 Ml INHALATION 3 ml Q4HRT ARGELIA Administration Buspirone HCl 5 mg 01/25/25 17:00 01/26/25 16:21 Buspirone Hcl 5 Mg Tablet BY MOUTH 5 mg BID ARGELIA Administration Enoxaparin Sodium 40 mg 01/27/25 09:00 Enoxaparin 40 Mg/0.4 Ml Syringe SUB-Q DAILY [facility] Guaifenesin 1,200 mg 01/26/25 09:00 01/26/25 20:55 Guaifenesin 12 Hr 600 Mg Tabcr PO 1,200 mg Q12HR ARGELIA Administration Azithromycin 250 mg in 250 mls @ 250 mls/hr 01/26/25 12:00 01/26/25 11:09 Zithromax IVPB 250 mls/hr Q24H ARGELIA Administration Losartan Potassium 100 mg 01/26/25 09:00 01/26/25 09:50 Losartan Potassium 100 Mg Tablet PO 100 mg DAILY ARGELIA Administration Metoprolol Tartrate 50 mg 01/25/25 21:00 01/26/25 20:55 Metoprolol Tartrate 50 Mg Tab PO 50 mg Q12H ARGELIA Administration Nicotine 1 patch 01/25/25 15:46 Nicotine (*Pbkc) 21 Mg Patch TRANSDERM DAILY PRN cravings Nortriptyline HCl 50 mg 01/26/25 09:00 01/26/25 09:49 Nortriptyline Hcl 25 Mg Capsule PO 50 mg DAILY ARGELIA Administration Ondansetron HCl 4 mg 01/25/25 12:48 Ondansetron Inj 4 Mg/2 Ml Vial IV PUSH Q4H PRN Nausea Prednisone 60 mg 01/26/25 08:00 01/26/25 09:50 Prednisone 20 Mg Tablet PO 60 mg DAILY@08 ARGELIA Administration Radiology Results: ITS Impressions Chest X-Ray 01/25/25 10:40 Impression: No acute cardiopulmonary abnormality. Chest CT 01/26/25 13:49 IMPRESSION: 1. Mild to moderate upper lung predominant emphysema with chronic atelectasis/scarring the left upper lobe and new mild discoid atelectasis in the right lower lobe. 2. No pneumonia or other acute cardiopulmonary disease. 3. Cholelithiasis. Labs Labs: Laboratory Results - last 24 hr 01/26/25 01/27/25 14:28 05:42 C-Reactive Protein < 0.5 Procalcitonin 0.0 Nasal MRSA (PCR) Not detected Quality VTE Prophylaxis VTE prophylaxis: mechanical ordered and pharmacologic ordered
[2025-01-27 08:00] LABS: Hematocrit 39.2 % (37.0-47.0); Hemoglobin 12.5 g/dL (12.0-15.0); Mean Corpuscular HGB Conc 31.9 g/dl (32-36); Mean Corpuscular Hemoglobin 29.3 pg (26-34); Mean Corpuscular Volume 91.8 fl (80-100); Platelet Count Result 355 k/mm3 (150-375); Red Blood Count 4.27 M/mm3 (4.2-5.4); White Blood Count 11.0 K/mm3 (4.5-10.0)
[2025-01-27 08:10] LABS: Alanine Aminotransferase 14 U/L (6-35); Albumin Level 3.6 g/dL (3.5-5.1); Alkaline Phosphatase 117 U/L (38-126); Anion Gap 4 mmol/L (4-12); Aspartate Amino Transferase 16 U/L (14-36); Bilirubin,Total 0.4 mg/dL (0.2-1.3); Blood Urea Nitrogen 21 mg/dL (7-17); Calcium 9.7 mg/dL (8.4-10.2); Carbon Dioxide 34 mmol/L (22-30); Chloride 95 mmol/L (98-107); Estimated CRCL calculation 64 ml/min; Estimated Glomerular Filt Rate > 60; Glucose 91 mg/dL (65-110); Potassium 4.3 mmol/L (3.4-5.0); Sodium 133 mmol/L (137-145); Total Protein 6.4 g/dL (6.3-8.2)
[2025-01-27 08:22] LABS: Thyroid Stimulating Hormone 0.473 uIU/mL (0.465-4.680)
--- NOTE | 2025-01-27 08:43 | PM.PNPUL ---
Progress Note: A&P Assessment and Plan (1) COPD exacerbation: Code(s): J44.1 - Chronic obstructive pulmonary disease with (acute) exacerbation Status: Acute Assessment and Plan: GOLD grade 4 group E COPD patient with a 60 pack year tobacco use, quit 12/31/2023. 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 PFTs 11/06/2023 with an FEV1 0.54, 25% predicted, FEV1: FVC ratio 40%. Air trapping, moderately decreased DLCO that corrected for alveolar volume. CT scan of the chest 11/18/2024 with moderate apical predominant centrilobular emphysema. Chronic hypoxemic respiratory failure requiring no oxygen at rest and 2 L with activity. On a good day she can walk room to room. Inpatient exacerbation 12/05/2024 through 12/07/2024. She is maintained on triple inhalers. Eosinophil count on 12/05/2024 was 450 per micro L. patient presents now with incomplete recovery after her last exacerbation from 12/07/2024 with a 7 day history of upper respiratory symptoms, worsening wheezing, increased cough with green phlegm and worsening dyspnea on exertion. I will treat the patient for COPD exacerbation. Plan: Patient is improved on prednisone 60 mg p.o. q.day and I will continue this, day 2 of steroids. I will increase the frequency of her DuoNebs to q.4 hours which will provide maximal beta agonist and muscarinic antagonist. I will discontinue all other inhalers. I will continue guaifenesin 1200 mg p.o. q.day. I will send respiratory pathogen panel, urine Legionella, urine pneumococcal, serum mycoplasma IgM looking for infectious etiologies of her COPD exacerbation. I will obtain a CT scan of the chest looking for evidence of pneumonia. I will continue azithromycin at this time and broaden her coverage if there is evidence of a pneumonia on her CT scan. I will send an MRSA nasal swab. Later in the day patient had a CT scan of the chest that showed moderate apical predominant centrilobular emphysema. Left upper lobe scar, right lower lobe atelectasis with no evidence of pneumonia, pleural effusion or interstitial lung disease. 01/27/2025: Patient tells me she is doing much better today. She says she is 75-80% back to her normal. She rested and has more energy. Her cough is gone and she has no phlegm or hemoptysis. She has better did dyspnea on exertion and no shortness of breath at rest. She notices no wheezing. When I enter the room she was on 2 L nasal cannula saturations 95%. I decreased her to room air and after 8 minutes her saturations were 86%. I placed her on 1 L nasal cannula saturations were 91%. White blood cell count 11.0. Creatinine 0.81. Procalcitonin 0.0. CRP less than 0.5. TSH is 0.473. MRSA swab negative. She was positive 2.1 L yesterday and her weight today is 94.8. Patient tells me she is ready to be discharged today. Plan: Continue treatment for COPD exacerbation. I will repeat a blood gas today to reassess for chronic hypercarbic respiratory failure. If she has pCO2 greater than 52, will plan on repeating a blood gas as an outpatient in 2-4 weeks after she is fully recovered from her COPD exacerbation prior to committing her to BiPAP or noninvasive ventilation. From a pulmonary perspective patient can be discharged today on these pulmonary medications: Prednisone 40 mg p.o. q.day x5 days Azithromycin 250 mg p.o. q.day x3 days Symbicort 160-4.5 at 2 puffs b.i.d. Spiriva Respimat 2.5 mcg at 2 puffs q.a.m. Rescue albuterol inhaler 2 puffs q.4 hours p.r.n. shortness of breath or wheezing Oxygen at rest and with activity per formal home O2 assessment which I have ordered. With the patient naps or sleeps: CPAP 15 with 3 L bleed in. Follow-up in the Pulmonary Clinic with her previously scheduled appointment on 02/10/2025. Discussed with Tejal Martínez, will sign off, call with questions. (2) Obstructive sleep apnea: Code(s): G47.33 - Obstructive sleep apnea (adult) (pediatric) Status: Acute Assessment and Plan: Regarding her obstructive sleep apnea. Patient is set up with a CPAP 15 with 1 L bleed in through [facility]. She has been wearing this but has noticed her fullface mask leaks and is sometimes uncomfortable. Sometimes she gets a good night's sleep and sometimes she does not. She has not been wearing it for the last 1-2 weeks because of her current illness. 01/26/2025: Plan: I will place the patient on CPAP 15 with 1 L bleed and obtain an overnight oximetry to assess her oxygenation on these settings. Patient will try to have her son bring in her home machine so that we can try this on and make sure it works well for her while she is in the hospital. I will obtain a download from [employer]. Obtain download from [facility] From 12/27/2024 through 01/25/2025.. Patient is on CPAP 15. Usage days greater than or equal to 4 hours is 37%. One day of usage since 01/10/2025. AHI 0.7. Apnea index 0.1. Hypopnea index 0.6. Central apnea index 0.0. Median leak 55.3. Ninety-fifth percentile leak 101.4. Maximum leak 113.1. Median tidal volume 280 mL. Median respiratory rate 19. Median minute ventilation 5.6. 01/27/25: Patient wore hospital CPAP 15 with 1 L bleed in and said that she slept good, there was minimal leak and she feels refreshed this morning. She wore this for approximately 5-6 hours. Patient had an overnight oximetry on these settings with recording duration of 5 hours and 48 minutes. Average saturation 86%. Low saturation 80%. Time with saturation less than or equal to 88% was 313 minutes. Oxygen desaturation index 4.4. plan: Download demonstrates current CPAP 15 provides adequate pressures with a low AHI but there is a large leak. she will continue to adjust fullface mask at home. 1 L bleed in is insufficient and I have told her to increase her bleed in to 3 L at home. Subjective Date/time seen: 01/27/25 08:43 Interval history: 01/26/2025: This is a new pulmonary consult for COPD exacerbation. 64-year-old with a history of COPD on 3 L oxygen at night, obstructive sleep apnea on CPAP with 2 L bleed in, hypertension, anxiety and depression. Patient is followed in the Pulmonary Clinic and last see on 05/06/2024: This is a copy of that note ESTABLISHED: Sherri Ramirez is a 63-year-old woman with COPD, O2 use, lung cancer. She was in hospital Apr 01, still not smoking since Nov, maybe one on occasion she had a cigarette. This is great news. She is feeling much better now, was not completely well at discharge, about 60% better. Now, today, sat is 94% on room air. She has POC with her. For COPD, she is using Symbicort 160/4.5, 2 puffs bid and Spiriva 2.5 mcg, 2 puffs daily, p.r.n.albuterol, not often. Sleep study - pending we talked about mask desensitization. This can help tremendously getting used to the mask, and decreasing anxiety about using PAP with sleep. Her lung cancer is stable, sees Dr Fields and Dr Watkins. plan: Continue Symbicort 160-4.52 puffs b.i.d., Spiriva 2 puffs q.day which helped a lot. She almost uses no p.r.n. albuterol. Check an DODIE cascade. Her shortness of breath is more manageable now she is limited as far as which he can do at home. Portable oxygen helps and she will continue to use with exertion to maintain saturations 90-94%. She is using 3 L with exertion and room air rash. Regarding her lung cancer she was not a surgical CT of 8. Completed radiation [address] scan 03/30/2024. Regarding her hypersomnia split night sleep study was planned. 10/21/2024:CPAP titration. Alberta score 3. Weight 93.4 kg. Assessment and plan: Challenging study. The highest pressure CPAP 15 with 2 L oxygen for 39 minutes with a residual AHI of 0. We recommend overnight oximetry and 2-3 weeks. Large number of limb movements however these did not cause arousals. Patient smoked tobacco for 40 years at 1 and half pack per day for total of 60 pack years. She quit on 12/31/2023. She denies vaping, illicit drug use, or marijuana use. On a good day the patient can walk room to room. 12/05/2024 through 12/07/2024: Admitted to [facility] with a COPD exacerbation and treated with Solu-Medrol, bronchodilators, Levaquin and discharged on a prednisone taper and azithromycin. The patient tells me she finished her medicine but never completely recovered. She said she had shortness of breath at rest and dyspnea on exertion, fatigue and weakness with no wheezing and no phlegm. On 01/19/2025 the patient developed sneezing, coughing, sinus congestion and shortness of breath at rest and with exertion. She was sleeping on her couch. Usually she wears no oxygen at rest but she was wearing oxygen. She took some Mucinex continued her inhalers and improved by 01/22/2025. That day she when shopping and the next day she felt much worse with rest shortness of breath, worsening dyspnea on exertion to across the room, increased cough with green phlegm, wheezing no hemoptysis no fever. Patient presented to the emergency room on 01/25/2025 with expiratory wheezes. Her blood pressure is 148/85, heart rate 95, 2 L nasal cannula saturations 96%. White blood cell count 9.1, eosinophils 4.7% equal 364 per micro L. Creatinine 0.73, BNP 213. COVID influenza and RSV RT PCR assay negative. Chest x-ray with no active disease. ABG on 2 L 7.37/57/68. Patient admitted with COPD exacerbation treated with Solu-Medrol and bronchodilators. 01/26/2025: patient tells me she has improved today. She states she is breathing 50% back to her normal. She has a dry cough. She has improved wheezes and improved dyspnea on exertion. When I enter the room she was on 2 L nasal cannula saturations 96%. I decreased her to room air and she had saturations of 88% after 7 minutes. I placed her on 1 L nasal cannula saturations 93%. She is afebrile. White blood cell count 8.3, creatinine 0.65. Azithromycin was added for tracheobronchitis. Regarding her obstructive sleep apnea. Patient is set up with a CPAP 15 with 1 L bleed in through [facility]. She has been wearing this but has noticed her fullface mask leaks and is sometimes uncomfortable. Sometimes she gets a good night's sleep and sometimes she does not. She has not been wearing it for the last 1-2 weeks because of her current illness. Obtain download from [facility] From 12/27/2024 through 01/25/2025.. Patient is on CPAP 15. Usage days greater than or equal to 4 hours is 37%. One day of usage since 01/10/2025. AHI 0.7. Apnea index 0.1. Hypopnea index 0.6. Central apnea index 0.0. Median leak 55.3. Ninety-fifth percentile leak 101.4. Maximum leak 113.1. Median tidal volume 280 mL. Median respiratory rate 19. Median minute ventilation 5.6. Later in the day patient had a CT scan of the chest that showed moderate apical predominant centrilobular emphysema. Left upper lobe scar, right lower lobe atelectasis with no evidence of pneumonia, pleural effusion or interstitial lung disease. 01/27/2025: Patient tells me she is doing much better today. She says she is 75-80% back to her normal. She rested and has more energy. Her cough is gone and she has no phlegm or hemoptysis. She has better did dyspnea on exertion and no shortness of breath at rest. She notices no wheezing. When I enter the room she was on 2 L nasal cannula saturations 95%. I decreased her to room air and after 8 minutes her saturations were 86%. I placed her on 1 L nasal cannula saturations were 91%. White blood cell count 11.0. Creatinine 0.81. Procalcitonin 0.0. CRP less than 0.5. TSH is 0.473. She was positive 2.1 L yesterday and her weight today is 94.8. Patient tells me she is ready to be discharged today. Patient wore hospital CPAP 15 with 1 L bleed in and said that she slept good, there was minimal leak and she feels refreshed this morning. She wore this for approximately 5-6 hours. Patient had an overnight oximetry on these settings with recording duration of 5 hours and 48 minutes. Average saturation 86%. Low saturation 80%. Time with saturation less than or equal to 88% was 313 minutes. Oxygen desaturation index 4.4. DATA: 01/26/25: EXAMINATION: CT diagnostic chest wo con INDICATION: COPD, ppneumonia COMPARISON: 11/18/2024 FINDINGS: Mild to moderate upper lung predominant emphysema. Densities discoid atelectasis/scarring in the left upper lobe. New discoid atelectasis in the right lower lobe along the major fissure. No pneumonia, pulmonary edema or pleural effusion... Heart size is normal. Small amount of atherosclerotic coronary artery calcification. No pericardial effusion. Thoracic aorta is normal in caliber. No pathologically enlarged thoracic lymphadenopathy. Multiple gallstones filling the incompletely distended bladder. Severe bilateral glenohumeral osteoarthritis. Moderate to severe thoracic and lower cervical spondylosis. IMPRESSION: 1. Mild to moderate upper lung predominant emphysema with chronic atelectasis/scarring the left upper lobe and new mild discoid atelectasis in the right lower lobe. 2. No pneumonia or other acute cardiopulmonary disease. 3. Cholelithiasis. 11/19/2024: Clinical Indication: Neoplasm CT Scan of the Chest with Contrast: Technique: Contiguous sections were acquired throughout the chest after intravenous administration of 75 cc of Omnipaque 350. Dose reduction technique was used on this scan by utilizing automated exposure control and iterative reconstruction technique. The dose-length product (DLP) was 879.73 mGy-cm. COMPARISON: 06/30/2024 Findings: There is no evidence of any significant mediastinal, hilar or axillary lymphadenopathy. There is no filling defect in the pulmonary arterial tree to suggest pulmonary embolus. There is no evidence of aortic dissection or aneurysm. There is no evidence of pleural or pericardial effusion. Stable probable post treatment change and/or scarring in the left upper lobe peripherally. There is moderate upper lobe emphysema. Images through the upper abdomen reveal no abnormalities. Impression: Stable posttreatment change or scarring in the left upper lobe. Moderate upper lobe emphysema. 04/02/2024: Echo Summary 1. Left ventricular chamber dimension is normal. 2. Left ventricular systolic function is hyperdynamic with an ejection fraction by Biplane Method of Discs of 61 %. 3. There is no increased left ventricular wall thickness. 4. Left ventricular wall motion is normal. 5. The left ventricular diastolic function is grade I diastolic dysfunction. 6. Right ventricular chamber dimension is normal. 7. Right ventricular systolic function is normal. 8. Normal inferior vena cava with >50% collapse upon inspiration consistent with normal right atrial pressure, 3 mmHg. Right Ventricle Right ventricular chamber dimension is normal. Right ventricular systolic function is normal. Right Atria Right atrial chamber dimension is normal. PASP cannot be calculated because of no TR seen. 11/06/2023: This is a pulmonary function test with pre and post-bronchodilator spirometry, plethysmography and diffusing capacity. The test was performed and results interpreted in accordance with the 2019 and 2005 ATS/ERS Task Force guidelines respectively using the Global Lung Function Initiative-2012 reference equations. Patient demonstrated good effort and cooperation. Reproducibility criteria were met. The quality of the pre bronchodilator spirometry maneuver was Grade A and post bronchodilator spirometry maneuver was Grade A. Findings: Spirometry: There is decreased maximal expiratory airflow at all lung volumes with concave expiratory flow tracing. The contour the expiratory flow tracing demonstrates a reproducible oscillating or saw tooth pattern. The contour the inspiratory flow tracing is normal. The pre bronchodilator FVC is 1.33 L, 50% predicted. The pre bronchodilator FEV1 is 0.54 L, 25% predicted. The pre bronchodilator FEV1: FVC ratio is 40%. The post bronchodilator FVC is 1.41 L, representing a 6% increase. The post bronchodilator FEV1 is 0.48 L, representing a 10% decrease. The post bronchodilator FEV1: FVC ratio is 34%. Plethysmography: The total lung capacity is 6.37 L, 144% predicted. The functional residual capacity is 3.36 L, 135% predicted. The residual volume is 3.33 L, 183% predicted. The residual volume: Total lung capacity ratio is 52%. Diffusing capacity: The diffusing capacity unadjusted for hemoglobin and carboxyhemoglobin is 9.4, 48% predicted. The diffusing capacity adjusted for alveolar volume is 3.85, 84% predicted. Impression: The contour the expiratory flow tracing demonstrates a reproducible oscillating or sawtooth pattern. This is usually generated either by air flow disturbances in the upper airway or from tremors of the respiratory muscles. This has been associated with sleep apnea, obesity, snorers without obstructive sleep apnea, upper airway injury, upper airway stenosis, tracheobronchomalacia, neuromuscular disorders with bulbar involvement, burn injury of the upper airway, diaphragmatic myoclonus, and herpes zoster of abdominal muscles. Clinical correlation is recommended. There is a very severe obstructive abnormality. There is no significant improvement after inhaling a single dose of albuterol. The increase in residual volume to total lung volume ratio is consistent with hyperinflation from an obstructive abnormality. The diffusing capacity unadjusted for hemoglobin and carboxyhemoglobin is moderately decreased and normalizes when adjusted for alveolar volume. There are no prior studies for comparison Review of Systems Constitutional: Constitutional: Reports no additional constitutional complaints Eyes: Eyes: Reports no additional eye complaints ENT: Reports system reviewed and no additional complaints, except as documented Cardiovascular: Cardiovascular: Reports no additional cardiovascular complaints Respiratory: Respiratory: Reports no additional respiratory complaints Gastrointestinal: Gastrointestinal: Reports no additional gastrointestinal complaints Musculoskeletal: Musculoskeletal: Reports no additional musculoskeletal complaints Neurologic: Reports system reviewed and no additional complaints, except as documented Psychiatric: Psychiatric: Reports no additional psychiatric complaints Endocrine: Endocrine: Reports no additional endocrine complaints Hematologic/Lymphatic: Hematologic/Lymphatic: Reports no additional hematologic/lymphatic complaints Allergic/Immunologic: Allergic/Immunologic: Reports no additional allergic/immunologic complaints Exam Const: General: cooperative, healthy appearing and comfortable Orientation/consciousness: oriented to person, oriented to place and oriented to time HENMT: Head: normal to inspection Ears: hearing grossly normal bilaterally Eyes: General: appearance normal, both eyes and all related structures Neck: Neck: normal visual inspection Chest: Chest palpation & inspection: normal inspection of the chest Resp: Effort & Inspection: normal respiratory effort and able to speak in complete sentences Auscultation: no crackles, no rales, no rhonchi, wheezes and lung sounds not diminished Other: End expiratory wheezes bilaterally Cardio: Jugular venous distension: no JVD GI: Inspection: normal to inspection Skin: General skin exam: normal color Neuro: General: oriented to person, oriented to place and oriented to time Extrem: General: normal to inspection and no edema Psych: Appearance: grossly normal Objective Data Vital Signs Vital Signs: Vital Signs - 24 hr 01/26/25 09:50 01/26/25 14:00 01/26/25 17:04 Temperature 36.4 C Pulse Rate 99 96 92 Respiratory Rate 18 20 Blood Pressure 120/96 H Pulse Oximetry 97 Oxygen Delivery Oxygen Flow Rate 01/26/25 17:09 01/26/25 20:00 01/26/25 20:16 Temperature 37.3 C Pulse Rate 100 105 H Respiratory Rate 20 16 Blood Pressure 118/94 H Pulse Oximetry 95 90 Oxygen Delivery Nasal Cannula Oxygen Flow Rate 1 01/26/25 20:28 01/26/25 20:28 01/26/25 20:33 Temperature Pulse Rate 104 H 101 H Respiratory Rate 16 16 Blood Pressure Pulse Oximetry 95 Oxygen Delivery Oxygen Flow Rate 1 01/26/25 20:55 01/26/25 23:10 01/26/25 23:10 Temperature Pulse Rate 100 86 86 Respiratory Rate 25 H 25 H Blood Pressure Pulse Oximetry 92 Oxygen Delivery CPAP Oxygen Flow Rate 01/26/25 23:28 01/27/25 04:39 01/27/25 05:22 Temperature 36.8 C Pulse Rate 90 89 Respiratory Rate 25 H 18 26 H Blood Pressure 118/73 Pulse Oximetry 95 Oxygen Delivery CPAP Oxygen Flow Rate 01/27/25 07:25 01/27/25 07:25 01/27/25 07:35 Temperature Pulse Rate 85 101 H Respiratory Rate 20 20 Blood Pressure Pulse Oximetry 90 Oxygen Delivery Nasal Cannula Oxygen Flow Rate 2 01/27/25 07:59 Temperature Pulse Rate Respiratory Rate Blood Pressure Pulse Oximetry 93 Oxygen Delivery Nasal Cannula Oxygen Flow Rate 2 Intake/Output Intake/Output: Intake & Output 01/24/25 01/25/25 01/26/25 01/27/25 23:59 23:59 23:59 23:59 Intake Total 790 2370 50 Output Total 200 Balance 790 2170 50 Meds/Results Medications: Active Medications Generic Name Dose Route Start Last Admin Trade Name Freq PRN Reason Stop Dose Admin Acetaminophen 650 mg 01/25/25 12:48 01/26/25 20:56 Acetaminophen 325 Mg Tablet PO 650 mg Q4H PRN Administration Mild Pain (1-3) or Fever Albuterol/Ipratropium 3 ml 01/26/25 16:00 01/27/25 07:25 Ipratropium 0.5 Mg/Albuterol Sulfate 2.5 Mg (Base) Ampul.Neb 3 Ml INHALATION 3 ml Q4HRT ARGELIA Administration Buspirone HCl 5 mg 01/25/25 17:00 01/26/25 16:21 Buspirone Hcl 5 Mg Tablet BY MOUTH 5 mg BID ARGELIA Administration Enoxaparin Sodium 40 mg 01/27/25 09:00 Enoxaparin 40 Mg/0.4 Ml Syringe SUB-Q DAILY ARGELIA Guaifenesin 1,200 mg 01/26/25 09:00 01/26/25 20:55 Guaifenesin 12 Hr 600 Mg Tabcr PO 1,200 mg Q12HR ARGELIA Administration Azithromycin 250 mg in 250 mls @ 250 mls/hr 01/26/25 12:00 01/26/25 11:09 Zithromax IVPB 250 mls/hr Q24H ARGELIA Administration Losartan Potassium 100 mg 01/26/25 09:00 01/26/25 09:50 Losartan Potassium 100 Mg Tablet PO 100 mg DAILY ARGELIA Administration Metoprolol Tartrate 50 mg 01/25/25 21:00 01/26/25 20:55 Metoprolol Tartrate 50 Mg Tab PO 50 mg Q12H ARGELIA Administration Nicotine 1 patch 01/25/25 15:46 Nicotine (*Pbkc) 21 Mg Patch TRANSDERM DAILY PRN cravings Nortriptyline HCl 50 mg 01/26/25 09:00 01/26/25 09:49 Nortriptyline Hcl 25 Mg Capsule PO 50 mg DAILY ARGELIA Administration Ondansetron HCl 4 mg 01/25/25 12:48 Ondansetron Inj 4 Mg/2 Ml Vial IV PUSH Q4H PRN Nausea Prednisone 60 mg 01/26/25 08:00 01/26/25 09:50 Prednisone 20 Mg Tablet PO 60 mg DAILY@08 ARGELIA Administration Radiology Results: ITS Impressions Chest X-Ray 01/25/25 10:40 Impression: No acute cardiopulmonary abnormality. Chest CT 01/26/25 13:49 IMPRESSION: 1. Mild to moderate upper lung predominant emphysema with chronic atelectasis/scarring the left upper lobe and new mild discoid atelectasis in the right lower lobe. 2. No pneumonia or other acute cardiopulmonary disease. 3. Cholelithiasis. Labs Labs: Laboratory Results - last 24 hr 01/26/25 01/27/25 14:28 05:42 WBC 11.0 H RBC 4.27 Hgb 12.5 Hct 39.2 MCV 91.8 MCH 29.3 MCHC 31.9 L RDW 14.5 Plt Count 355 MPV 10.3 Sodium 133 L Potassium 4.3 Chloride 95 L Carbon Dioxide 34 H Anion Gap 4 BUN 21 H Creatinine 0.81 Estim Creat Clear Calc 64 Estimated GFR > 60 Glucose 91 Calcium 9.7 Total Bilirubin 0.4 AST 16 ALT 14 Alkaline Phosphatase 117 C-Reactive Protein < 0.5 Total Protein 6.4 Albumin 3.6 Procalcitonin 0.0 TSH 0.473 Nasal MRSA (PCR) Not detected
[2025-01-27 08:44] LABS: Free T4 Free Thyroxine 1.25 ng/dL (0.78-2.19)
[2025-01-27 09:08] LABS: Alveolar/Arterial O2 Gradient 57.6 mmHg; Fractional Inspired Oxygen 24 %; HCO3 ABG 33.7 mEq/l (22.0-26.0); Oxygen Content ABG 16.9 %vol (16.0-22.0); PCO2 ABG 53.5 mmHg (35.0-45.0); PO2 ABG 49.9 mmHg (80.0-100.0); PO2 FiO2 Ratio Arterial Blood 2.08 %
[2025-01-27] MEDS: METOPROLOL TARTRATE 50 MG TAB PO (09:10)
[2025-01-27] MEDS: ENOXAPARIN 40 MG/0.4 ML SYRINGE SUB-Q (09:10)
[2025-01-27] MEDS: guaiFENesin 12 HR 600 MG TABCR 1200 MG PO (09:10)
[2025-01-27] MEDS: LOSARTAN POTASSIUM 100 MG TABLET PO (09:10)
[2025-01-27] MEDS: NORTRIPTYLINE HCL 25 MG CAPSULE 50 MG PO (09:10)
[2025-01-27 09:11] LABS: Oxygen Saturation ABG 85.2 % (95.0-100.0)
[2025-01-27 09:13] LABS: Liters per Minute 1.0 LPM; Modified Allen's Test Pass; Site Drawn RIGHT RADIAL
[2025-01-27] MEDS: AZITHROMYCIN 250 MG/NS 250 ML 250 MG/250 ML BAG IVPB (11:07)
--- NOTE | 2025-01-27 12:51 | P.DS_ITS ---
DS: Admitting Diagnosis Discharge Date 01/27/2025 Admitting Diagnosis Chronic respiratory failure copd exacerbation raissa htn anxiety DS: Discharge Diagnosis Discharge Diagnosis (1) Chronic respiratory failure: Code(s): J96.10 - Chronic respiratory failure, unspecified whether with hypoxia or hypercapnia Status: Acute (2) COPD exacerbation: Code(s): J44.1 - Chronic obstructive pulmonary disease with (acute) exacerbation Status: Acute (3) Obstructive sleep apnea: Code(s): G47.33 - Obstructive sleep apnea (adult) (pediatric) Status: Acute (4) Hypertension: Qualifiers: Hypertension type: primary hypertension Qualified Code(s): I10 - Essential (primary) hypertension Code(s): I10 - Essential (primary) hypertension Status: Chronic (5) Anxiety: Code(s): F41.9 - Anxiety disorder, unspecified Status: Chronic DS: Summary Hospital Course Reason for hospitalization: Chronic respiratory failure copd exacerbation raissa htn anxiety Hospital Course: 64 year old female with past medical history of chronic respiratory failure secondary to COPD on 2L NC baseline, RAISSA uses CPAP, HTN, HLD, and depression/anxiety presents to the hospital for shortness of breath. Chest XR unremarkable and CT showed Mild to moderate upper lung emphysema with chronic atelectasis/scarring the left upper lobe and new mild discoid atelectasis in the right lower lobe. No pneumonia or other acute cardiopulmonary disease. Patient was started on steroids and antibiotics for COPD exacerbation and pulmonology consulted. No signs of acute infection noted. Throughout admission patient remained on her baseline oxygen supplementation of 2lNC. Patient underwent a home o2 eval and is to remain on 2L NC at rest and activity. She underwent an overnight oximetry to assess cpap settings which were updated per pulmonology. Patient to follow up with pulmonology as scheduled in the outpatient setting. Prior to discharge discussed patient with pulmonology Dr. Rajput who is in agreement with discharge from a pulmonology perspective. Patient transitioned to oral antibiotics and remains on steroids to complete the course for COPD exacerbation. She is to continue her inhalers as previously prescribed. Patient had no complaints at time of discharge denying chest pain, shortness of breath, palpitations, nausea/vomiting, abdominal pain and dizziness/lightheadedness/weakness with ambulation. Patient discharged home in a stable condition. He has a follow-up her primary care provider in 1 week and pulmonology as scheduled. Status at Discharge Functional status at discharge: independent ambulation Time Spent with Patient Time attestation: Total time spent providing and/or coordinating discharge services: Time spent: Greater than 30 minutes Exam Narrative: AF HR 80 RR 20 Spo2 90 1L NC BP 118/73 General: female in no acute respiratory distress who is nontoxic appearing, sitting up on side of bed. HEENT: Normocephalic. Atraumatic. Extraocular movement intact. Sclera clear and anicteric. No facial asymmetry. Chest: Lungs with slight expiratory wheezes. No crackles. Remains on baseline NC of 2L. Speaking full sentences. CV: Heart was regular rate and rhythm. Abd: Abdomen was soft. Nontender. Nondistended. Positive bowel sounds. Ext: No clubbing, cyanosis, or edema. DP pulses bilaterally. Neuro: Patient is alert. Strength is 5/5 in both upper and lower extremities. Speech is clear. DS: Data Data Completed and Pending Completed studies during hospitalization: chest xr chest ct Labs on day of discharge: Labs from last 24 hours 01/27/25 01/27/25 01/26/25 09:06 05:42 14:28 WBC 11.0 H RBC 4.27 Hgb 12.5 Hct 39.2 MCV 91.8 MCH 29.3 MCHC 31.9 L RDW 14.5 Plt Count 355 MPV 10.3 Puncture Site Right radial ABG pH 7.417 ABG pCO2 53.5 H ABG pO2 49.9 L ABG PO2/FiO2 Ratio 2.08 ABG HCO3 33.7 H ABG O2 Saturation 85.2 L* ABG O2 Content 16.9 ABG Base Excess 7.5 A-a Gradient 57.6 Oxyhemoglobin 83.6 L* Total Hemoglobin 14.4 O2 Delivery Device Nasal cannula O2 Liters/Min 1.0 FiO2 24 Sodium 133 L Potassium 4.3 Chloride 95 L Carbon Dioxide 34 H Anion Gap 4 BUN 21 H Creatinine 0.81 Estim Creat Clear Calc 64 Estimated GFR > 60 Glucose 91 Calcium 9.7 Total Bilirubin 0.4 AST 16 ALT 14 Alkaline Phosphatase 117 C-Reactive Protein < 0.5 Total Protein 6.4 Albumin 3.6 Procalcitonin 0.0 TSH 0.473 Free T4 1.25 Nasal MRSA (PCR) Not detected DODIE Screen Pending Chlamy pneumoniae PCR Pending Adenovirus (PCR) Pending B. pertussis DNA (PCR) Pending B.parapertussis DNA PCR Pending Coronavirus OC43 (PCR) Pending Coronavirus HKU1 (PCR) Pending Coronavirus 229E (PCR) Pending Coronavirus NL63 (PCR) Pending Human Metapneumovir PCR Pending Influenza A (H1) PCR Pending Influ A (H1/09) PCR Pending Influenza A (H3) PCR Pending Influenza Type A (PCR) Pending Influenza Type B (PCR) Pending M.pneumoniae IgM Titer Pending M. pneumoniae (PCR) Pending Parainfluenza 1 (PCR) Pending Parainfluenza 2 (PCR) Pending Parainfluenza 3 (PCR) Pending Parainfluenza 4 (PCR) Pending RSV (PCR) Pending Entero/Rhino (PCR) Pending SARS-CoV-2 (PCR) Pending Discharge Plan Discharge Attending physician on discharge: Gelacio Castillo Consulting providers: Jimmie Rajput; Tejal Martínez Discharging Clinician: Tejal Martínez Anticipated Discharge Date/Time: 01/27/25 12:36 Patient Disposition: Home Activity: as tolerated Diet: as tolerated and heart healthy Discharge Instructions: Discharge disposition: Patient admitted to the hospital for a COPD exacerbation Evaluated by pulmonology Follow-up in the Pulmonary Clinic with her previously scheduled appointment on 02/10/2025. * Take your medicines as directed.? Prednisone 40 mg p.o. q.day x5 days Azithromycin 250 mg p.o. q.day x3 days Symbicort 160-4.5 at 2 puffs b.i.d. Spiriva Respimat 2.5 mcg at 2 puffs q.a.m. Rescue albuterol inhaler 2 puffs q.4 hours p.r.n. shortness of breath or wheezing * Watch for warning signs.?If you notice it is harder to breathe, you are coughing more, have more mucus, or your medicine is not helping, call your doctor or go to the emergency room. These could be signs that your COPD is getting worse. * Keep moving.?Try to stay active every day, even if it is just walking around your home. Being active helps your lungs and your overall health. * Stop smoking.?If you smoke, quitting is the most important thing you can do for your lungs. * Get your vaccines.?Make sure you have had your flu and pneumonia shots. These vaccines help prevent infections that can make your COPD worse. * Use oxygen if prescribed.? Continue baseline oxygen of 2L nasal cannula with rest and activity When the patient naps or sleeps: CPAP 15 with 3 L bleed in. Monitor blood pressures Take caution while standing, rising, or moving Change positions slowly taking a break between each position change If you standing feel dizzy sit back down and take a break Encouraged to continue with yearly vaccinations Return to the emergency department if he developed sudden shortness of breath, chest pain, nausea, vomiting, upset stomach or intractable diarrhea Return to the emergency department if you develop fever greater than 100.5 Follow-up with the primary care physician within 1-2 weeks Thank you for [facility] for your healthcare needs Patient Instructions: Antibiotic Form, Prednisone (By mouth), Azithromycin (By mouth), Using Oxygen at Home (DC), COPD (Chronic Obstructive Pulmonary Disease) (DC), Chronic Lung Disease and Infection Prevention (DC) Patient Language: Indian Stand Alone Forms: General Discharge Information Follow-up/Referrals: Adolfo,JARED Mcdonnell [Primary Care Provider, Family Practice] - 1 Week Jimmie Rajput MD [Physician, Pulmonology] - Keep Reg. Scheduled Appt. Discharge Medications: New prednisone 20 mg Tablet 40 mg PO DAILY@08 Qty: 10 0RF azithromycin 250 mg tablet 250 mg PO DAILY 3 Days Qty: 3 0RF Continued metoprolol tartrate 50 mg Tablet 50 mg PO Q12H losartan 100 mg Tablet 100 mg PO DAILY nortriptyline 50 mg Capsule 50 mg PO DAILY Zepbound 10 mg/0.5 mL pen injector 10 mg SUBCUT WEEKLY nicotine 21 mg/24 hr Patch 24 Hour 1 patch transdermal DAILY PRN (Reason: cravings) albuterol sulfate [ProAir HFA] 90 mcg/actuation HFA aerosol inhaler 2 inhalation INHALATION Q4H Qty: 8.5 6RF Spiriva Respimat 2.5 mcg/actuation mist 2 puff inhalation DAILY 30 Days Qty: 4 5RF buspirone 5 mg tablet See Rx Instructions .ROUTE .COMPLEX Qty: 60 1RF Dose Instruction: TAKE 1 TABLET(5 MG) BY MOUTH TWICE DAILY FOR ANXIETY Rx Instructions: TAKE 1 TABLET(5 MG) BY MOUTH TWICE DAILY FOR ANXIETY Changed budesonide-formoterol [Symbicort] 160-4.5 mcg/actuation HFA aerosol inhaler 2 puff INHALATION QAM Qty: 10.2 0RF Rx Instructions: 2 puffs inhalation twice daily in the morning and in the evening; Date of admission: 01/26/25 13:07 Primary Care Provider: CliveGretchen Admitting Provider: Prudencio Michaud Attending physician on admission: Prudencio Michaud Condition: Stable Hospitalist MIPS Heart Failure (Exclusion) Patient has history of Heart Transplant or Left Ventricular Assistive Device?: No IF YES, STOP HERE Heart Failure (Qualifier) Patient has current or prior documentation of LVEF less than or equal to 40%, or mod/servere depressed LVSF?: No IF NO, STOP HERE
--- NOTE | 2025-01-27 14:47 | HOMEO2EVAL ---
Evaluation was performed at [facility] Home Oxygen Evaluation RC: Home Oxygen (O2) Evaluation Start: 01/27/25 08:37 Freq: ONCE Status: Discharge Protocol: RPE Activity Type Activity Date Activity User E-sign Co-sign Detail Recorded Client Recorded Date Recorded By Document 01/27/25 11:10 DJO [email or web address] 01/27/25 14:47 DJO Document 01/27/25 11:15 [email or web address] [email or web address] 01/27/25 14:47 DJO Document 01/27/25 11:20 [email or web address] [email or web address] 01/27/25 14:47 DJO Document 01/27/25 11:25 [email or web address] [email or web address] 01/27/25 14:47 DJO 01/27/25 01/27/25 01/27/25 11:10 11:15 11:20 Home O2 Evaluation [Oxygen] -Test Phase Resting Resting Resting -Oxygen Delivery Room Air Nasal Cannula Nasal Cannula -Oxygen Flow Rate (L/min) 1 2 [Pulse Oximetry] -Pulse Oximetry (90-100 %) 84 L 88 L 91 [Pulse Rate] -Pulse Rate (60-100 beats/min) 85 84 82 [Evaluation] -Activity Tolerance 01/27/25 11:25 Home O2 Evaluation [Oxygen] -Test Phase Exercise -Oxygen Delivery Nasal Cannula -Oxygen Flow Rate (L/min) 2 [Pulse Oximetry] -Pulse Oximetry (90-100 %) 91 [Pulse Rate] -Pulse Rate (60-100 beats/min) 96 [Evaluation] -Activity Tolerance Good
--- NOTE | 2025-01-27 14:47 | PCRCNOTE ---
HOME O2 EVAL COMPLETE, NO CHANGE FROM PREVIOUS SETTINGS. 2L REST AND ACTIVITY. PT'S FAMILY TO BRING IN TANK FOR DISCHARGE
[2025-01-29 15:09] LABS: ANA by IFA Rfx Titer/Pattern Positive (.); ANA by IFA Rfx YES YES
== END 2025-01-27 13:40 | disposition home or self-care (01) | DRG 191 ==
LOC: ANHED 10:26 → ANH3MEDSUR 13:28
PROVIDERS: Internal Medicine Pulmonary Disease; Admitting Provider General Practice; Emergency Provider General Practice; PCP Physician Assistant; Visit Provider Student in an Organized Health Care Education/Training Program
DX: J44.1 Chronic obstructive pulmonary disease with (acute) exacerbation (principal); C34.90 Malignant neoplasm of unspecified part of unspecified bronchus or lung; J96.11 Chronic respiratory failure with hypoxia; G47.33 Obstructive sleep apnea (adult) (pediatric); R91.1 Solitary pulmonary nodule; I10 Essential (primary) hypertension; F41.9 Anxiety disorder, unspecified; F32.A Depression, unspecified; Z87.891 Personal history of nicotine dependence; Z20.822 Contact with and (suspected) exposure to COVID-19
CPT/HCPCS: 36415; 36600; 71045; 71250; 80053; 82805; 83735; 83880; 84145; 84439; 84443; 84484; 85018; 85025; 85027; 85610; 85730; 86038; 86140; 86364; 86738; 87449; 87637; 87641; 93005; 94640; 94762; 96374; 99285; A9270; G0378; J0456; J1650; J2919; J7512

== ENCOUNTER 2025-02-16 13:18 | Outpatient (CLI) | payer MEDICARE, SELFPAY ==
[2025-02-16 13:43] LABS: Alveolar/Arterial O2 Gradient 25.3 mmHg; Carboxyhemoglobin 6.3 % THb (0-2.0); Fractional Inspired Oxygen 21 %; HCO3 ABG 29.4 mEq/l (22.0-26.0); Methemoglobin ABG 0.3 %THb (0-1.5); Oxygen Content ABG 17.7 %vol (16.0-22.0); Oxygen Saturation ABG 93.1 % (95.0-100.0); PCO2 ABG 48.2 mmHg (35.0-45.0); PO2 ABG 66.7 mmHg (80.0-100.0); PO2 FiO2 Ratio Arterial Blood 3.18 %; Reduced Hemoglobin 5.9 %THb (0-5.0)
[2025-02-16 13:50] LABS: Modified Allen's Test Pass; Site Drawn RIGHT BRACHIAL
--- NOTE | 2025-02-16 16:03 | WPDSIXMINUTE ---
Six Minute Walk Procedure Procedure Performed Pulmonary Stress Test (6 min walk) Six Minute Walk Six Minute Walk: This is a 6 minute walk test. The test was performed and interpreted in accordance with the 2014 ERS/ATS task force guidelines. Of note, testing was performed on 2 L portable oxygen concentrator using a wheeled walker. Patient stopped at 3 minutes due to back pain. Findings: The patient's resting 2 L nasal cannula oxygen saturation measured by pulse oximetry was 93%, the heart rate was 90 bpm, and the modified Saud dyspnea score was 0. Patient ambulated for 107 meters and oxygen saturation remained 94 to 95%. At the end of the study the heart rate was 116 bpm and the modified Saud dyspnea score was 1. The patient did not desaturations on 2 L nasal cannula at rest or with ambulation. There are no prior studies for comparison.
--- NOTE | 2025-02-16 16:06 | WPDPFTINT ---
PFT Procedure Performed PFT Procedure Performed Spirometry with Pre/Post Bronchodilator Plethysmography (Lung Vol) Diffusing Cap (DLCO) Flow Vol Loop PFT Interpretation This is a pulmonary function test with pre and post-bronchodilator spirometry, plethysmography, diffusing capacity, and rest room air arterial blood gas. The test was performed and results interpreted in accordance with the 2019 and 2005 ATS/ERS Task Force guidelines respectively using the Global Lung Function Initiative-2012 reference equations. Patient demonstrated good effort and cooperation. Reproducibility criteria were met. The quality of the pre bronchodilator spirometry maneuver was Grade A and post bronchodilator spirometry maneuver was Grade A. Findings: Spirometry: There is decreased maximal expiratory airflow at all lung volumes with concave expiratory flow tracing. The contour the inspiratory flow tracing is normal. The pre bronchodilator FVC is 1.73 L, 66% predicted. The pre bronchodilator FEV1 is 0.68 L, 33% predicted. The pre bronchodilator FEV1: FVC ratio is 39%. The post bronchodilator FVC is 1.68 L, representing a 3% decrease. The post bronchodilator FEV1 is 0.64 L, representing a 6% decrease. The post bronchodilator FEV1: FVC ratio is 38%. Plethysmography: The total lung capacity is 5.50 L, 124% predicted. The functional residual capacity is 4.48 L, 180% predicted. The residual volume is 3.77 L, 205% predicted. The residual volume: Total lung capacity ratio 68%. Diffusing capacity: The diffusing capacity unadjusted for hemoglobin and carboxyhemoglobin is 7.2, 37% predicted. The diffusing capacity adjusted for alveolar volume is 2.77, 60% predicted. Rest room air arterial blood gas: pH 7.40, PaCO2 48.2, PaO2 66.7, carboxyhemoglobin 6.3%. In comparison to previous pulmonary function testing on 11/06/2023, the post bronchodilator FVC has increased from 1.41 L to 1.68 L. The post bronchodilator FEV1 has increased from 0.48 L to 0.64 L. The total lung capacity is unchanged from 6.37 L to 5.50 L. The functional residual capacity has increased from 3.36 L to 4.48 L. The residual volume is unchanged from 3.33 L to 3.77 L. The residual volume: Total lung capacity ratio is increased from 52% to 68%. The diffusing capacity unadjusted for hemoglobin and carboxyhemoglobin is decreased from 9.4 to 7.2. The diffusing capacity adjusted for alveolar volume is decreased from 3.85 to 2.77. Impression: There is a very severe obstructive abnormality. There is no significant improvement after inhaling a single dose of albuterol. The increase in residual volume to total lung volume ratio is consistent with hyperinflation from an obstructive abnormality. The diffusing capacity unadjusted for hemoglobin and carboxyhemoglobin is severely decreased and remains moderately decreased when adjusted for alveolar volume. the rest room air arterial blood gas demonstrates a combined respiratory acidosis and metabolic alkalosis with a PaO2 lower than expected for patient's age. The carboxyhemoglobin level is increased and consistent with exposures to products of combustion. In comparison to previous pulmonary function testing on 11/06/2023, there has been a greater than anticipated time dependent increase in the FVC, FEV1, functional residual capacity and residual volume: Total lung capacity ratio. There has been a greater than anticipated Decrease in the diffusing capacity with no significant change in the total lung capacity or residual volume. Clinical correlation is recommended.
== END 2025-02-16 13:19 | disposition home or self-care (01) ==
LOC: ANHPFT 13:21
PROVIDERS: PCP Physician Assistant; Visit Provider Internal Medicine Pulmonary Disease
DX: J44.9 Chronic obstructive pulmonary disease, unspecified (principal)
CPT/HCPCS: 36600; 82375; 82805; 83050; 85018; 94060; 94618; 94726; 94729

== ENCOUNTER 2025-03-22 09:09 | Outpatient (CLI) | payer MEDICARE, SELFPAY ==
--- NOTE | ~2025-03-22 | CT_ITS ---
EXAMINATION:CT diagnostic chest w con DATE: 03/22/2025 09:36 INDICATION: Malignant neoplasm of upper lobe of left lung. TECHNIQUE: Computed tomography (CT) of the chest was performed with 75 mL Omnipaque 350 intravenous contrast. Automated exposure control and iterative reconstruction technique were employed. The dose-length product (DLP) was 548.30 mGy-cm. COMPARISON: Chest CT 01/26/2025, 09/14/2023 FINDINGS: There is moderate emphysema. There are bandlike airspace opacities in left upper lobe measuring up to 2.3 x 0.4 cm. There is mild atelectasis bilaterally. No pleural effusion. 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 The heart size is normal. No pericardial effusion. There are old healed fractures of left third and sixth ribs. There is mild chronic anterior wedging of multiple thoracic vertebral bodies. There is moderate thoracic spondylosis. IMPRESSION: 1. Stable bandlike airspace opacities in left upper lobe, consistent with primary bronchogenic carcinoma and changes of radiation therapy. 2. Moderate emphysema. 3. 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 Reviewed, dictated and finalized at location E. [facility] SPECIALIST IMPRESSION: 1. Stable bandlike airspace opacities in left upper lobe, consistent with prima ry bronchogenic carcinoma and changes of radiation therapy. 2. Moderate emphysema. 3. Total occlusion of proximal left subclavian artery with reconstitution at th e origin of left vertebral artery, consistent with subclavian steal.
[2025-03-22 09:31] LABS: Estimated Glomerular Filt Rate > 60
--- OUTSIDE RECORDS SUMMARY | 2025-03-22 10:05 | XMS_ITS | Data Portability ---
Author Organization [facility] YAMILAKassandra Address [address] [place] [address] Care Team Providers Care Safety Tech Name Role Phone MARK CASEY Primary Care Provider [phone] Assessment Encounter Date Assessment Date Assessment LastModified by Organization Details LastModified Time 01/13/2024 01/13/2024 declines cervical, colon and breast screenings Not available 01/13/2024 14:31:06 03/15/2025 03/15/2025 Overall she is doing very well today. She denies chest pain shortness of breath or palpitations today she was hospitalized at [facility] in December 2024 [email or web address] Not available 03/15/2025 15:40:01 Plan of Treatment Reminders Order Date Submit Date Provider Last Modified By Organization Details Last Modified Time Details Appointments None recorded. Lab noninvasive colorectal cancer DNA + occult blood screening, QL, stool 2024 025 [facility], [address], [address], [place], [address], 14:39:12 lipid panel, serum 2024 025 Zoe Majeste [facility], [address] [facility], [address], [place], [address], 5 09:16:21 HbA1c (hemoglobin A1c), blood 2024 025 Zoe Majeste [facility], [address] [facility], [address], [place], [address], 5 09:16:23 TSH + free T4, serum 2024 025 [facility], [address] [facility], [address], [place], [address], 5 09:16:21 CMP, serum or plasma 2024 025 [facility], [address] [place] [address], [address], [place], [address], 5 09:16:22 CBC 2024 025 [facility], [address] [place] [address], [address], [place], [address], 5 09:16:24 pap, IG + reflex HPV 2024 025 LAYNE BERNARD, [address] [place] [address], [address], [place], [address], 5 15:18:59 Referral pain management referral 2024 025 LAYNE Stanton MD, [address], [place], [address], 5 17:14:03 vascular surgeon referral 2024 025 [email or web address] Ryan Oreilly MD, [address] [facility] [address], [address], 5 10:21:00 orthopedic surgeon referral - Right elbow pain 12/06/2023. xray shows soft tissue swelling posterior to the olecranon and proximal ulna (could be olecranon bursitis). small chronic nonuinted fracture with corticated margins at tip of coronoid process. 2023 024 LAYNE Stockton, [address] [facility], [facility], [place], [address], 4 11:05:21 Procedures polysomnogr aphy, split night (PROC) [address], [address] [place] [address], [address], 4 08:02:56 Surgeries None recorded. Imaging MAMMO, screening, bilateral [address] (Imaging), [address] [place] [address], [address], 5 15:56:59 XR, cervical spine, 2 or 3 view 2024 [facility] (Imaging), [address] [place] [address], [address], 5 17:09:51 MAMMO, screening, bilateral [address] (Imaging), [address] [place] [address], [address], 5 08:14:40 Medication Orders Zepbound 12.5 mg/0.5 mL subcutaneou s pen injector 2024 [facility], [address] [facility], [place], [address], 14:39:00 budesonide- formoterol HFA 160 mcg-4.5 mcg/actuati on aerosol inhaler 2024 [id number], [address] [facility], [place], [place], [id number], 5 14:39:08 Zepbound 7.5 mg/0.5 mL subcutaneou s pen injector 2024 025 [facility] 2425, [address] [facility], [place], [address], 10:07:02 Ozempic 2 mg/dose (8 mg/3 mL) subcutaneou s pen injector 2023 [id number], [address], [place], [place], [id number], 14:28:07 albuterol sulfate HFA 90 mcg/actuati on aerosol inhaler 2023 LAYNE [facility] #[id number], [address], [place], [place], [id number], 14:33:34 Patient TargetsNo targets recorded. Patient Instructions Encounter Date Encounter Id Patient Instructions Last Modified By Organization Details Last Modified Time 04/23/2024 [id number] A healthy lifestyle: care instructions Not available 04/23/2024 14:24:42 (JEFRY) ankle brachial index* ATHENAFAX Not available 04/23/2024 14:47:33 03/15/2025 [id number] A healthy lifestyle: care instructions acroessmanmarsha Not available 03/15/2025 15:41:58 Quitting Tobacco: Care Instructions acroessmanmarsha Not available 03/15/2025 15:41:58 The patient was counseled regarding the appropriate use of alcohol, screening procedures and recommended schedule for colonoscopy, cholesterol, thyroid and diabetes screening, prevention of dental and periodontal disease, diet, regular sustained exercise for at least 30 minutes 3-4 times per week, regular use of seat belts. Recommend dilated eye exam and glaucoma screening every 2 years or as indicated by ophthalmology acroessmanmarsha Not available 03/15/2025 14:38:09 Treatment: - Continued use of CPAP and oxygen therapy as prescribed - Increase Zepbound to 12.5 mg for weight management - Lidocaine patches for back pain management Tests: - Ordered hemoglobin A1c and lipid panel - Scheduled CT scan to monitor for cancer recurrence Patient Education: - Discussed the importance of weight management and potential insurance coverage for medications with type 2 diabetes diagnosis - Advised on the need for regular follow-up with [facility] and pain management Follow-Up: - Plan to reassess effectiveness of increased Zepbound dosage - Follow-up with pain management for ongoing injections and evaluation Disposition: - Patient to message or call with updates on pain management and Zepbound effectiveness - Ordered mammogram and colorectal cancer screening to be completed at patient's convenience malena Not available 03/15/2025 15:35:22 Reason for Referral Orthopedic Surgeon Referral for Closed fracture of right elbow Right elbow pain 12/06/2023. xray shows soft tissue swelling posterior to the olecranon and proximal ulna (could be olecranon bursitis). small chronic nonuinted fracture with corticated margins at tip of coronoid process. Referring Physician: [facility], Encounter Date: 12/16/2023 Vascular Surgeon Referral fo r Abnormal foot pulse Referring Physician: Mark Casey Email Marketing Intern, Encounter Date: 04/23/2024 Pain Management Referral for Chronic neck pain Referring Physician: Mark Casey Email Marketing Intern, Encounter Date: 10/27/2024 Results Created Date Observation Date Name Description Value Unit Range Abnormal Flag Note LastModifiedBy Organization Detail LastModifiedTime 04/23/1904/23/2024 IGP,A PTIMA HPV,A GE GDLN age gdln acog testing 30-65 Not Available [facility]) [address] [place], [address], 04/27/2024 15:18:59 04/23/1904/25/2024 IGP, APTIM A HPV, RFX 16/18 ,45 HPV aptima Negati ve negati ve This nucle ic acid ampli ficat ion test detec ts fourt een high- risk HPV types (16,1 8,31, 33,35 ,39,4 5,51, 52,56 ,58,5 9,66, 68) witho ut diffe renti ation . Not Available [facility] ([facility]) [address] [place], [address], 04/27/2024 15:19:00 04/23/19 04/27/2024 IGP, APTIM A HPV, RFX 16/18 ,45 diagnosis: Watson MALAVE FOR INTRA EPITH ELIAL LEO Moreno OR SEEMA PUCKETT . Not Available [facility] ([facility]) [address] [place], [address], 04/27/2024 15:19:00 04/23/19 25 04/27/2024 IGP, APTIM A HPV, RFX 16/18 ,45 specimen adequacy: Watson t Satis facto ry for evalu ation . Endoc ervic al and/o r squam ous metap lasti c cells (endo cervi marie compo nent) are prese nt. Not Available [facility] ([facility]) [address] [place], [address], 04/27/2024 15:19:00 04/23/1904/27/2024 IGP, APTIM A HPV, RFX 16/18 ,45 clinician provided ICD10: Watson hummel Z01.4 19 Not Available [facility] ([facility]) [address] [place], [address], 04/27/2024 15:19:00 04/23/19 25 04/27/2024 IGP, APTIM A HPV, RFX 16/18 ,45 performed by: Watson moreno, Cytot alan marques t (ASCP ) Not Available [facility] ([facility]) [address] [place], [address], 04/27/2024 15:19:00 04/23/1904/27/2024 IGP, APTIM A HPV, RFX 16/18 ,45 . . Not Available [facility] ([facility]) [address] [place], [address], 04/27/2024 15:19:00 04/23/19 25 04/27/2024 IGP, APTIM [...] ts do occur . Not Available [facility] ([facility]) [address] [place], [address], 04/27/2024 15:19:00 04/23/19 25 04/27/2024 IGP, APTIM A HPV, RFX 16/18 ,45 test methodology: Watson t This liqui d based ThinP rep(R ) pap test was scree mayra with the use of an image guide sylvie galloway. Not Available [facility] ([facility]) [address] [place], [address], 04/27/2024 15:19:00 04/23/19 25 04/27/2024 IGP, APTIM A HPV, RFX 16/18 ,45 HPV genotype reflex Commen t Crite gloria not met, HPV Genot ype not perfo rmed. Not Available [facility] ([facility]) [address] [place], [address], 04/27/2024 15:19:00 03/15/20 25 03/16/2025 TSH+F REE T4 TSH 1.530 uIU/m L 0.450- 4.500 Not Available [facility] ([facility]) [address] [place], [address], 03/16/2025 09:16:20 03/15/20 25 03/16/2025 TSH+F REE T4 T4,free(dire ct) 1.08 NG/dL 0.82-1 .77 Not Available [facility] ([facility]) [address] [place], [address], 03/16/2025 09:16:20 03/15/20 25 03/16/2025 LIPID PANEL cholesterol, total 174 mg/dL 100-19 9 Not Available [facility] ([facility]) [address] [place], [address], 03/16/2025 09:16:21 03/15/20 25 03/16/2025 LIPID PANEL triglyceride s 106 mg/dL 0-149 Not Available [facility]) [address] [place], [address], 03/16/2025 09:16:21 03/15/20 25 03/16/2025 LIPID PANEL HDL cholesterol 53 mg/dL >39 Not Available [facility]) [address] [place], [address], 03/16/2025 09:16:21 03/15/20 25 03/16/2025 LIPID PANEL VLDL cholesterol marie 19 mg/dL 5-40 Not Available [facility]) [address] [place], [address], 03/16/2025 09:16:21 03/15/20 25 03/16/2025 LIPID PANEL LDL chol calc ([facility]) 102 mg/dL 0-99 above high normal Not Available [facility] ([facility]) [address] [place], [address], 03/16/2025 09:16:21 03/15/20 25 03/15/2025 COMP. METAB OLIC PANEL (14) interpretati on: COMMEN T GFR estim ate at the follo wing level for >or=3 month s is class ified as follo ws: GFR WITH KIDNE Y DAMAG E WITHO UT KIDNE Y DAMAG E >or=9 0 Stage 1 Evelin l 60-89 Stage 2 Decr eased GFR 30-59 Stage 3 Stage 3 15-29 Stage 4 Stage 4 <15 (or dialy sis) Stage 5 Stage 5 Estim ated GFR will over estim ate true GFR if serum creat inine is risin g as in acute renal failu re and will under estim ate true GFR if serum creat inine is decli anaid as in resol ving acute renal failu re. Addit ional infor ida tiffanie may be found at www.k doqi. org. Not Available [facility] ([facility]) [address] [facility], [place], [address], 03/16/2025 09:16:22 03/15/20 25 03/16/2025 COMP. METAB OLIC PANEL (14) glucose 81 mg/dL 70-99 Not Available [facility] ([facility]) [address] [facility], [place], [address], 03/16/2025 09:16:22 03/15/20 25 03/16/2025 COMP. METAB OLIC PANEL (14) BUN 14 mg/dL 8-27 Not Available [facility] ([facility]) [address] [facility], [place], [address], 03/16/2025 09:16:22 03/15/20 25 03/16/2025 COMP. METAB OLIC PANEL (14) creatinine 0.74 mg/dL 0.57-1 .00 Not Available [facility] ([facility]) [address] [facility], [place], [address], 03/16/2025 09:16:22 03/15/20 25 03/16/2025 COMP. METAB OLIC PANEL (14) eGFR 91 mL/mi n/1.7 3 >59 Not Available [facility] ([facility]) [address] [facility], [place], [address], 03/16/2025 09:16:22 03/15/20 25 03/16/2025 COMP. METAB OLIC PANEL (14) BUN/creatini ne ratio 19 12-28 Not Available [facility] ([facility]) [address] [facility], [place], [address], 03/16/2025 09:16:22 03/15/20 25 03/16/2025 COMP. METAB OLIC PANEL (14) sodium 140 mmol/ L 134-14 4 Not Available [facility] ([facility]) [address] [facility] [place], [address], 03/16/2025 09:16:22 03/15/20 25 03/16/2025 COMP. METAB OLIC PANEL (14) potassium 4.5 mmol/ L 3.5-5. 2 Not Available [facility] ([facility]) [address] [facility] [place], [address], 03/16/2025 09:16:22 03/15/20 25 03/16/2025 COMP. METAB OLIC PANEL (14) chloride 100 mmol/ L 96-106 Not Available [facility] ([facility]) [address] [facility] [place], [address], 03/16/2025 09:16:22 03/15/20 25 03/16/2025 COMP. METAB OLIC PANEL (14) carbon dioxide, total 26 mmol/ L 20-29 Not Available [facility] ([facility]) [address] [facility] [place], [address], 03/16/2025 09:16:22 03/15/20 25 03/16/2025 COMP. METAB OLIC PANEL (14) calcium 9.7 mg/dL 8.7-10 .3 Not Available [facility] ([facility]) [address] [facility] [place], [address], 03/16/2025 09:16:22 03/15/20 25 03/16/2025 COMP. METAB OLIC PANEL (14) protein, total 6.2 g/dL 6.0-8. 5 Not Available [facility] ([facility]) [address] [facility] [place], [address], 03/16/2025 09:16:22 03/15/20 25 03/16/2025 COMP. METAB OLIC PANEL (14) albumin 3.7 g/dL 3.9-4. 9 below low normal Not Available [facility] ([facility]) [address] [facility] [place], [address], 03/16/2025 09:16:22 03/15/20 25 03/16/2025 COMP. METAB OLIC PANEL (14) globulin, total 2.5 g/dL 1.5-4. 5 Not Available [facility] ([facility]) [address] [facility] [place], [address], 03/16/2025 09:16:22 03/15/20 25 03/16/2025 COMP. METAB OLIC PANEL (14) bilirubin, total 0.3 mg/dL 0.0-1. 2 Not Available [facility] ([facility]) [address] [place], [address], 03/16/2025 09:16:22 03/15/20 25 03/16/2025 COMP. METAB OLIC PANEL (14) alkaline phosphatase 196 IU/L 49-135 above high normal Not Available [facility] ([facility]) [address] [facility] [place], [address], 03/16/2025 09:16:22 03/15/20 25 03/16/2025 COMP. METAB OLIC PANEL (14) AST (SGOT) 22 IU/L 0-40 Not Available [facility] ([facility]) [address] [facility] [place], [address], 03/16/2025 09:16:22 03/15/20 25 03/16/2025 COMP. METAB OLIC PANEL (14) ALT (SGPT) 19 IU/L 0-32 Not Available [facility] ([facility]) [address] [facility] [place], [address], 03/16/2025 09:16:22 03/15/20 25 03/16/2025 HEMOG LOBIN A1C hemoglobin A1C 5.5 % 4.8-5. 6 Predi abete s: 5.7 - 6.4 Diabe sky: >6.4 Glyce dung contr ol for adult s with diabe sky: <7.0 Not Available [facility] ([facility]) [address] [facility], [place], [address], 03/16/2025 09:16:23 03/15/20 25 03/16/2025 CBC, PLATE LET, NO DIFFE RENTI AL WBC 8.3 x10e3 /uL 3.4-10 .8 Not Available [facility] ([facility]) [address] [facility], [place], [address], 03/16/2025 09:16:24 03/15/2003/16/2025 CBC, PLATE LET, NO DIFFE RENTI AL RBC 4.31 x10e6 /uL 3.77-5 .28 Not Available [facility] ([facility]) [address] [facility], [place], [address], 03/16/2025 09:16:24 03/15/2003/16/2025 CBC, PLATE LET, NO DIFFE RENTI AL hemoglobin 12.6 g/dL 11.1-1 5.9 Not Available [facility] ([facility]) [address] [facility], [place], [address], 03/16/2025 09:16:24 03/15/2003/16/2025 CBC, PLATE LET, NO DIFFE RENTI AL hematocrit 39.9 % 34.0-4 6.6 Not Available [facility] ([facility]) [address] [facility], [place], [address], 03/16/2025 09:16:24 03/15/2003/16/2025 CBC, PLATE LET, NO DIFFE RENTI AL MCV 93 fL 79-97 Not Available [facility] ([facility]) [address] [facility], [place], [address], 03/16/2025 09:16:24 03/15/2003/16/2025 CBC, PLATE LET, NO DIFFE RENTI AL MCH 29.2 pg 26.6-3 3.0 Not Available [facility] ([facility]) [address] [facility], [place], [address], 03/16/2025 09:16:24 03/15/20 25 03/16/2025 CBC, PLATE LET, NO DIFFE RENTI AL MCHC 31.6 g/dL 31.5-3 5.7 Not Available [facility] ([facility]) [address] [facility], [place], [address], 03/16/2025 09:16:24 03/15/2003/16/2025 CBC, PLATE LET, NO DIFFE RENTI AL RDW 13.7 % 11.7-1 5.4 Not Available [facility] ([facility]) [address] [place], [address], 03/16/2025 09:16:24 03/15/2003/16/2025 CBC, PLATE LET, NO DIFFE RENTI AL platelets 351 x10e3 /uL 150-45 0 Not Available [facility] ([facility]) [address] [place], [address], 03/16/2025 09:16:24 11/21/19 24 11/06/2023 6 minut e walk test* No observ ation record ed. [address], [address], 11/21/2023 13:03:43 12/05/19 24 12/05/2023 NM, bone scan, whole body No observ ation record ed. [address], [address], 12/09/2023 14:47:11 12/06/19 24 12/06/2023 XR, elbow , 3 or more view No observ ation record ed. [email or web address] [address], [address], 12/09/2023 15:07:03 12/16/19 24 12/16/2023 lab* No observ ation record ed. [address], [address], 12/18/2023 08:01:33 12/16/19 24 12/16/2023 lab* No observ ation record ed. [address], [address], 12/18/2023 08:01:39 12/16/19 24 12/16/2023 lab* No observ ation record ed. [address], [address], 12/18/2023 08:01:46 12/17/19 24 12/16/2023 lab* No observ ation record ed. [address], [address], 12/18/2023 08:01:52 12/17/19 24 12/17/2023 lab* No observ ation record ed. [address], [address], 12/18/2023 08:01:58 12/18/19 24 12/18/2023 CT, elbow , w/o contr ast No observ ation record ed. [address], [address], 12/19/2023 11:32:05 12/20/19 24 12/20/2023 lab* No observ ation record ed. [address], [address], 12/24/2023 13:07:32 12/20/19 24 12/20/2023 lab* No observ ation record ed. [address], [address], 12/24/2023 13:07:25 12/20/19 24 12/20/2023 lab* No observ ation record ed. [email or web address] [place] [address] [address], [place], [address], 12/24/2023 13:07:10 03/30/20 24 03/30/2024 CT, chest , w/ contr ast No observ ation record ed. [address], [place], [address], 03/30/2024 17:40:32 04/01/19 25 04/01/2024 XR, chest , 2 view No observ ation record ed. [address] [address], [place], [address], 04/02/2024 08:12:04 04/01/19 25 04/01/2024 CT, chest , w/ contr ast No observ ation record ed. [address], [place], [address], 04/02/2024 08:13:24 04/02/19 25 04/02/2024 trans -thor acic echoc ardio gram (TTE) (PROC ) No observ ation record ed. [address], [place], [address], 04/06/2024 17:18:56 06/19/19 25 05/26/2024 sleep study , diagn ostic (PROC ) No observ ation record ed. [address], [place], [address], 06/18/2024 13:19:26 07/01/19 25 06/30/2024 CT, angio gram, chest , w/ contr ast No observ ation record ed. [address], [place], [address], 07/01/2024 15:14:49 11/18/1910/21/2024 sleep study , diagn ostic (PROC ) No observ ation record ed. [address], [place], [address], 11/19/2024 11:55:00 11/20/1911/18/2024 CT, angio gram, chest , w/ contr ast No observ ation record ed. [address], [place], [address], 11/19/2024 11:55:48 01/21/2001/20/2025 XR, hip, bilat eral No observ ation record ed. [address], [place], [address], 01/22/2025 09:48:21 01/21/2001/20/2025 XR, cervi marie spine , 2 or 3 view No observ ation record ed. [address], [place], [address], 01/22/2025 09:48:22 01/21/2001/20/2025 XR, shoul sharyn, 2 or more view No observ ation record ed. [address], [place], [address], 01/22/2025 09:48:22 01/21/2001/20/2025 XR, lumba r spine , 2 view No observ ation record ed. [address], [place], [address], 01/22/2025 09:48:22 01/21/2001/20/2025 XR, thora cic spine , 3 view No observ ation record ed. [address], [place], [address], 01/22/2025 09:48:23 01/21/2001/20/2025 XR, shoul sharyn, 2 or more view No observ ation record ed. [address], [place], [address], 01/22/2025 09:48:23 01/21/2001/20/2025 XR, knee No observ ation record ed. [address], [place], [address], 01/22/2025 09:48:23 01/26/2001/25/2025 XR, chest No observ ation record ed. [email or web address], [place], [address], 01/25/2025 11:51:00 01/27/2001/26/2025 CT, angio gram, chest , w/o contr ast No observ ation record ed. [address], [place], [address], 01/27/2025 09:12:23 02/17/2002/16/2025 6 minut e walk test* No observ ation record ed. [email or web address], [place], [address], 02/17/2025 08:07:41 02/17/2002/16/2025 PFT, compl ete No observ ation record ed. [email or web address], [place], [address], 02/17/2025 08:07:46 Result Notes None recorded. Problems Name Problem SNOMED Code Status Onset Date Resolution Date Notes Provider Name and Address Organization Details Recorded Time [employer] n 76578588 Active 2021 JARED LOCKHART Attn: Zeb rees,[address] [facility], [place], [address], [facility] 15:26:15 Obesity 748450033 Active 2021 JARED LOCKHART Attn: Zeb rees,[address] [facility], [place], [address], [place] [facility] 2 15:26:17 Prediabetes 217491436 Active 2021 JARED LOCKHART Attn: Zeb g,[address] [facility], [place], [address], [place] [facility] 2 15:26:18 Smoker 15415776 Active 2021 JARED LOCKHART Attn: Accountluis fernando rees,[address] [facility], [place], [address], [place] [facility] 2 15:26:20 Chronic obstructive pulmonary disease 56244791 Active 2021 JARED LOCKHART Attn: Zeb rees,[address] [facility], [place], [address], [place] [facility] 2 15:26:21 Hypercalcem ia 83233503 Active 2021 JARED LOCKHART Attn: Donnaluis fernando rees,[address] [facility], [place], [address], [place] [facility] 2 09:44:58 Neck pain 09435671 Active 2021 JARED LOCKHART Attn: Donnaluis fernando rees,[address] [place], [address], [place] [facility] 2 09:45:00 Anxiety 81254692 Active 2021 JARED LOCKHART Attn: Donnaluis fernando rees,[address] [place], [address], [place] [facility] 2 09:45:01 Thoracic back pain 664818907 Active 2021 JARED LOCKHART Attn: Donnaluis fernando rees,[address] [facility], [place], [address], [place] [facility] 2 09:45:02 Screening for malignant neoplasm of respiratory tract Active 2021 JARED LOCKHART Attn: Zeb rees,[address] [place], [address], [place] [facility] 2 09:45:05 Dyspnea on exertion 68363264 Active 2022 JARED LOCKHART Attn: Accountluis fernando g,[address] [facility], [place], [address], [place] [facility] 3 13:24:31 Degeneratio n of lumbar interverteb ral disc 85823230 Active 2022 JARED LOCKHART Attn: Accountluis fernando g,[address] [facility], [place], [address], [place] [facility] 3 14:12:31 Degeneratio n of cervical interverteb ral disc 82219211 Active 2022 JARED LOCKHART Attn: Accountluis fernando g,[address] [facility], [place], [address], [place] [facility] 3 09:37:49 Morbid obesity 940839089 Active 2022 JARED LOCKHART Attn: Accountluis fernando rees,[address] [facility], [place], [address], [place] [facility] 3 12:53:33 Sleep apnea 28494144 Active 2022 JARED LOCKHART Attn: Accountluis fernando g,[address] [facility], [place], [address], [place] [facility] 3 13:21:37 Non-small cell lung cancer 402926169 Active 2023 JARED LOCKHART Attn: Accountin g,[address] [facility], [place], [address], [place] [facility] 4 16:00:44 Dyspnea 652181932 Active 2023 JARED LOCKHART Attn: Accountluis fernando g,[address] [facility], [place], [address], [place] [facility] 4 13:10:35 Closed fracture of right elbow 6901038325599 9103 Active 2023 JARED LOCKHART Attn: Zeb rees,[address], [place], [address], [place] [facility] 4 13:10:39 Chronic neck pain 7192870073833 Active 2024 JARED LOCKHART Attn: Zeb g,[address], [place], [address], [place] [facility] 5 14:31:01 Bursitis of olecranon of right elbow 3892754495717 08 Active 2024 JARED LOCKHART Attn: Accountluis fernando g,[address], [place], [address], [place] - [facility] 5 17:56:02 Problem Notes None recorded. Medical Equipment None Reported. Allergies Allergen ID Allergen Name Allergen Category Reaction Reaction Severity Criticality Documentation Date Start Date Code Code System Note Provider Name and Address Organization Details Recorded Time 923178 Zoloft medicatio n rash Not available Not available 04/22/2018 52592 RxNorm BARBARA Dela Cruz, [place] - [facility] 9 15:48:42 918554 sertralin e medicatio n rash Not available [facility] 01/25/20252021 34498 RxNorm Not Available [place] - External Data Service - prod 12:40:29 Medications Name Sig Start Date Stop Date [...] TAKE 1 TABLET BY MOUTH DAILY FOR 3 DAYS 02/27 completed Not Available Not Available Not Available meloxicam 15 mg tablet Take 1 tablet every day by oral route. 06/14 completed Not Available Not Available Not Available ondansetron HCl 4 mg tablet TAKE 1 TABLET BY MOUTH TWICE DAILY FOR 5 DAYS 11/05 completed Not Available Not Available Not Available prednisone 20 mg tablet Take 2 tablets every day by oral route with meal(s) for 5 days. 2024 active Not Available Not Available Not Avai lable acetaminoph en 300 mg-codeine 30 mg tablet Take 1 tablet every 6 hours by oral route as needed. 06/14 completed Not Available Not Available Not Available ciprofloxac in 500 mg tablet TAKE 1 TABLET BY MOUTH EVERY 12 HOURS FOR 10 DAYS 11/05 completed Not Available Not Available Not Available tramadol 50 mg tablet TAKE 1 TO 2 TABLETS BY MOUTH TWICE DAILY 03/15 completed Not Available Not Available Not Available [...] completed Not Available Not Available Not Available lidocaine 5 % topical patch UNWRAP AND APPLY 1 PATCH TO SKIN EVERY DAY NEEDED active Not Available Not Available No t Available metoprolol tartrate 50 mg tablet TAKE [...] 2024 active Not Available Not Available Not Malachi labmuna [employer] USE DIRECTED active Not Available Not Available No t Available Combivent Respimat 20 mcg-100 mcg/actuati on solution for inhalation INHALE 1 PUFF BY MOUTH FOUR TIMES DAILY NEEDED FOR SHORTNESS OF BREATH 03/15 completed Not Available Not Available Not Available Victoza 2-Hong 0.6 mg/0.1 mL (18 [...] Not Available Not Available Not Available Zepbound 12.5 mg/0.5 mL subcutaneou s pen injector Inject 12.5 mg every week by subcutane ous route. 2024 active Not Available Not Available Not Avai lable Zepbound 7.5 mg/0.5 mL subcutaneou s pen [...] 103 /min 133/87 mm[Hg] JARED LOCKHART Attn: Accounting, [place], [address], [place] - [place] 04/23/2024 14:24:55 Date Recorded Body height Body mass index (BMI) Body weight Provider Name and Address Organization Details Last Updated DateTime 04/23/2024 152.4 cm 40.2 kg/m2 89965.03 g Idalia Guillermo [place] 04/23/2024 13:59:49 Date Recorded Oxygen saturation Inhaled oxygen flow rate Provider Name and Address Organization Details Last Updated DateTime 10/27/2024 98 % 3 L/min Flaquita Jimenez [facility] 10/27 14:41:14 Date Recorded Body height Body mass index (BMI) Body weight Heart rate Systolic And Diastolic Provider Name and Address Organization Details Last Updated DateTime 10/27/2024 152.4 cm 42 kg/m2 44934.36 g 84 /min 120/80 mm[Hg] Idalia Guillermo [place] 10/27/2024 14:02:58 Date Recorded Oxygen saturation Provider Name and Address Organization Details Last Updated DateTime 12/16/2023 77 % Ora LOCKHART Attn: Accounting,[address] [place], [address], [place] - [facility] 12/16/2023 13:07:02 Date Recorded Body height Body mass index (BMI) Body weight Heart rate Provider Name and Address Organization Details Last Updated DateTime 12/16/2023 152.4 cm 40.8 kg/m2 57800.81 g 64 /min Idalia Guillermo [place] 12/16/2023 12:39:38 Date Recorded Heart rate Provider Name an d Address Organization Details Last Updated DateTime 01/13/2024 60 /min Ora LOCKHART Attn: Accounting,[address] [place], [address], [place] 01/13/2024 14:13:18 Date Recorded Body height Body mass index (BMI) Body weight Oxygen saturation Systolic And Diastolic Provider Name and Address Organization Details Last Updated DateTime 01/13/2024 152.4 cm 41.3 kg/m2 63375.39 g 98 % 105/73 mm[Hg] Idalia Guillermo MA [facility] 4 14:01:51 Date Recorded Body height Body mass index (BMI) Body weight Heart rate Oxygen saturation Systolic And Diastolic Provider Name and Address Organization Details Last Updated DateTime 5 152.4 cm 42.6 kg/m2 66498.1 4 g 80 /min 97 % 136/84 mm[Hg] Idalia Guillermo MA [facility] 5 14:22:37 Social History Question Answer Notes LastModified by Organizat ion Details LastModified Time Tobacco Smoking Status Former Smoker quit 2023 JARED LOCKHART Attn: Accounting,[address] [place], [address], [facility] 01/13/2024 14:04:02 What Is Your Level Of Caffeine Consumption? None Information not available 06/15/2019 How Much Tobacco Do You Chew? None Information not available 06/15/2019 In The 14 Days Before Symptom Onset, Have You Had Close Contact With A Laboratory-confir med COVID-19 While That Case Was Ill? No [email or web address] Information not available 01/21/2020 In The 14 Days Before Symptom Onset, Have You Had Close Contact With A Person Who Is Under Investigation For COVID-19 While That Person Was Ill? No [email or web address] Information not available 01/21/2020 Have You Been To An Area Known To Be High Risk For COVID-19? No [email or web address] Information not available 01/21/2020 What Type Of Diet Are You Following? REGULAR [email or web address] Information not available 01/21/2020 Which Illicit Or Recreational Drugs Have You Used? None Information not available 06/15/2019 Education 12 [email or web address] Information no t available 01/21/2020 Are There Any Guns Present In Your Home? No Information not available 01/21/2020 Marital Status [email or web address] Informatio n not available 01/21/2020 What Was The Date Of Your Most Recent Tobacco Screening? 03/15/2025 Information not available 03/15/2025 Performs Monthly Self-breast Exam? Yes [email or web address] Information no t available 01/21/2020 Seat Belts Used Routinely Yes Information not available 01/21/2020 Smoke Alarm In Home Yes [email or web address] Information not available 01/21/2020 Do You Have Smoke And Carbon Monoxide Detectors In Your Home? Yes Information not available 06/21/2021 At What Age Did You Start Smoking Tobacco? 17 Information not available 06/15/2019 Are You Passively Exposed To Smoke? No Information no t available 06/21/2021 How Much Tobacco Do You Smoke? 0.5 PPD Information not available 06/15/2019 Do You Use Sunscreen Routinely? Yes [email or web address] Information not available 01/21/2020 On What Date Was Tobacco Cessation Counseling Provided? 03/15/2025 Information not available 03/15/2025 How Many Years Have You Smoked Tobacco? 21 Information not available 06/15/2019 Sex: Female Functional Status Question Answer Note LastModified by Organizat ion Details LastModified Time What is your level of alcohol consumption? Occasional Information not available 06/15/2019 Do you or have you ever used smokeless tobacco? 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 Never used electronic cigarettes Information not available 06/15/2019 What is your exercise level? None Information [...] Eating Disorder N Anemia N Heart Attack (TN) N Anxiety Disorder Y Diabetes N Muscle, [...] [facility] 06/06/2022 14:16:19 Pneumococcal conjugate PCV20, polysaccharide FGD915 conjugate, adjuvant, PF 3 completed JARED LOCKHART Attn: Accounting,[address] [place], [address], [place] - [facility] 06/19/2022 13:21:40 Influenza, high-dose, trivalent, PF 4 completed JARED LOCKHART Attn: Accounting[address] [place], [address], [place] [facility] 01/13/2024 14:31:27 Influenza, split virus, trivalent, PF 5 completed Jacqueline Black MA null, [place] [facility] 03/15/2025 14:53:38 Past Encounters Encounter ID Performer Location Encounter Start Date Encounter Closed Date Diagnosis/Indication Diagnosis SNOMED-CT Code Diagnosis ICD10 Code Diagnosis IMO Codes Diagnosis Note [id number] Melvina Reynolds MD [facility] [address] [place] [address] 04/22/2018 15:11:06 04/28/2018 09:29:29 Generalized osteoarthritis 763956321 M15.9 Essential hypertension 68315537 I10 Standard ed adult depression screening tool completed 8589362381 41971 Z13.89 patient does not appear to be significan tly depressed. [id number] Melvina Reynolds MD [facility] [address] [place] [address] 09/05/2018 11:20:24 09/15/2018 09:59:27 Essential hypertension 15825956 I10 pt was also advised to quit smoking. Screening mammography 24 168376 Z12.31 Screening for malignant neoplasm of colon 511031782 Z12.11 Body mass index 30+ - obesity 036115994 Z68.39 discussed low fat, low carb diet, and encouraged exercise. Patient advised to limit salt and caffeine intake to maintain good blood pressure. [id number] Melvina Reynolds MD [facility] [address] [place] [address] 01/07/2019 15:10:07 01/12/2019 10:16:54 Herpes zoster 0698312 B02.9 [id number] Melvina Reynolds MD [facility] [address] [place] [address] 06/15/2019 15:10:54 06/29/2019 09:10:54 Moderate persistent asthma 547064625 J45.40 Essential hypertension 81596483 I10 pt was also advised to quit smoking. Moderate r ecurrent major depression 11756945 F33.1 Screening mammography 24 666459 Z12.31 Screening for malignant neoplasm of colon 694020659 Z12.11 [id number] Melvina Reynolds MD [facility] [address] [place] [address] 01/21/2020 16:01:28 01/22/2020 07:57:11 Pain in right knee 1725611724 55584 M25.561 may require knee surgery but would prefer to put it off for a while. Trying to give up smoking 339027588 Z72.0 encouraged her to stop smoking to decrease the risks of surgery [id number] JARED LOCKHART [facility] [address] [place] [address] 11/03/2020 12:07:58 11/14/2020 07:22:30 Essential hypertension 66185631 I10 patient will come by office for [...] for BP is <140/90 Screening mammography 24 841203 Z12.31 Colonoscopy declined 112 0831705 04908 Z53.20 [id number] JARED LOCKHART [facility] [address] [place] [address] 06/21/2021 13:55:40 06/22/2021 08:33:21 Screening for malignant neoplasm of colon 781602576 Z12.11 patient has refused past colonoscop ies. denies family hx colon cancer, blood in stool, changes in BM. Agrees to cologuard. Chronic ob structive pulmonary disease 61001526 J44.9 Patient smoking 1/2 ppd. does not want to do PFT. She states she is controlled with current medication s. [place] not thought about quitting smoking. no one smokes at home with her. + for sob on walking 2-3 blocks. Decreased heart sounds and air movement on exam. - stop smoking, counseled today Smoker 50471985 F17.200 smoking 1/2 ppd Prediabetes 889941634 R7 3.03 5.9 last year. She eats [...] weight loss can be very helpful. Obesity 215077998 E66.9 Essential hypertension 26692317 I10 patient will come by office for BP check. Advised to check BP regularly with a goal of <140/90, if BP consistent ly >140/90, advised to contact clinic Discussed DASH diet Advised weight loss and diet is best way to control BP Advised 30 minutes of exercise minimum daily Advised tobacco, alcohol, caffeine all increase BP Advised goal for BP is <140/90 [id number] Hugo moreno MD [facility] [address] [place] [address] 07/28/2021 08:08:48 07/31/2021 09:38:36 Cough 84513604 R05.1 PVproducti ve cough, sore throat, headache [email or web address] alevevacci nated for COVID and flu, home [...] if not or on SSRI antidepres sants. [id number] JARED LOKCHART [facility] [address] [place] [address] 01/29/2022 13:54:21 01/30/2022 12:20:23 Screening for malignant neoplasm of colon 705114523 Z12.11 patient has refused past colonoscop ies. denies family hx colon cancer, blood in stool, changes in BM. Agrees to cologuard. Chronic ob structive pulmonary disease 27436630 J44.9 Patient smoking 1 ppd. does not want to do PFT. She states she is controlled with current medication s. [place] not thought about quitting smoking. no one smokes at home with her. + for sob on walking 2-3 blocks. Decreased heart sounds and air movement on exam. - stop smoking, counseled today Smoker 48671985 F17.200 smoking 1ppd Prediabetes 754923951 R7 3.03 5.9 last year. She eats [...] weight loss can be very helpful. Obesity 465394757 E66.9 Essential hypertension 81382946 I10 patient will come by office for [...] Screening for malignant neoplasm of respiratory tract 574778213 Z12.2 45 pack year smoking hx, smoking 1ppd currently. Sleep apnea 76649579 G47 .30 BMI 40.9, htn, snoring, apnea, days time somnolence , COPD.- sleep study Anxiety 47579955 F41.9 controlled . needs refill Neck pain 14297585 M54.2 cervical pain on palpation Thoracic back pain 65238 8004 M54.6 thoracic pain on palpation - [...] lying on the sofa. Screening mammography 24 885679 Z12.31 Hypercalcemia 14059728 E 83.52 followed by [facility]. saw them 12/2021 and has f/u in 3 months. [id number] JARED LOCKHART [facility] [address] [place] [address] 06/06/2022 13:54:26 06/06/2022 14:40:17 Chronic obstructive pulmonary disease 20756951 J44.9 Patient smoking 1 ppd. does not want to do PFT. She states she is controlled with current medication s. [place] not thought about quitting smoking. no one smokes at home with her. + for sob on walking 2-3 blocks. Decreased heart sounds and air movement on exam. - stop smoking, counseled today Administra tion of pneumococcal vaccine 85996045 Z23 given today Muscle weakness 21192513 M62.81 weakness going up stairs. at risk for falls. agrees to PT. Prediabetes 116576064 R7 3.03 5.9 last year. She eats [...] referralde nies LDCT, I rather not know [id number] JARED LOCKHART [facility] [address] [place] [address] 07/04/2022 13:58:32 07/04/2022 15:10:06 Chronic obstructive pulmonary disease 97600958 J44.9 Patient smoking 1 ppd. does not want to do PFT. She states she is controlled with current medication s. [place] not thought about quitting smoking. no one smokes at home with her. + for sob on walking 2-3 blocks. Decreased heart sounds and air movement on exam. - stop smoking, counseled todayprebecki edward 20.05/2022 Muscle weakness 28289773 M62.81 first PT session completed at [facility] an is 2x per week Prediabetes 523839568 R7 3.03 5.9 05/2022. She eats high [...] Dyspnea on exertion 6084 5006 R06.09 jermaine mata LDCT, I rather not know Screening for malignant neoplasm of colon 195768347 Z12.11 patient has refused past colonoscop ies. denies family hx colon cancer, blood in stool, changes in BM. Agrees to cologuard. Smoker 91172541 F17.200 smoking 1ppd Obesity 263672319 E66.9 Essential hypertension 01201553 I10 134/76 Advised to check BP regularly with a goal of <140/90, if BP consistent ly >140/90, advised to contact clinicDisc ussesylvie DASH dietAdvise d weight loss and diet is best way to control BPAdvised 30 minutes of exercise minimum dailyAdvis ed tobacco, alcohol, caffeine all increase BPAdvised goal for BP is <140/90 Screening for malignant neoplasm of respiratory tract 952339302 Z12.2 45 pack year smoking hx, smoking 1ppd currently. - declines LDCT Sleep apnea 76063604 G47 .30 BMI 40.9, htn, snoring, apnea, days time somnolence , COPD.- sleep study Anxiety 29727995 F41.9 controlled . needs refill Neck pain 56276645 M54.2 cervical pain on palpation Screening mammography 24 214342 Z12.31 missed appointmen twill reschedule Hypercalcemia 64995831 E 83.52 followed by endo. saw them 12/2021 and has f/u in 3 months. HIV screening 466362796 Z11.4 Degenerati on of cervical intervertebral disc 80121147 M50.30 01/2022: severe disc disease in neck (C5-6, C6-7). Mild degernativ e disease in thoracic spine. sending to ortho [id number] JARED LOCKHART [facility] [address] [place] [address] 07/05/2022 12:20:29 07/05/2022 12:51:23 [id number] JARED LOCKHART [facility] [address] [place] [address] 11/26/2022 12:19:34 11/27/2022 15:52:58 Chronic obstructive pulmonary disease 84802031 J44.9 Patient smoking 1 ppd. does not [...] counseled today- prevnar 20 given 05/2022 Prediabetes 768445445 R7 3.03 5.9 05/2022. She eats high [...] nies LDCT, I rather not know Smoker 52578949 F17.200 smoking 1ppddoes not want to quit Screening for malignant neoplasm of respiratory tract 340780891 Z12.2 45 pack year smoking hx, smoking 1ppd currently. - declines LDCT Screening mammography 24 977274 Z12.31 missed appointmen thas not reschedule dnew order Morbid obesity 036632486 E66.01 BMI 41.811 lb weight gain since 3Pati ent denies fam hx of thyroid cancer, personal hx pancreatit is. Medication side effects were reviewed with patient and include MIC, pancreatit is, nausea, vomiting, stomach upset. Patient was shown pen and was shown how to clean area, inject pen, and how often to administer . [id number] JARED LOCKHART [facility] [address] [place] [address] 06/03/2023 12:17:13 06/03/2023 13:00:52 Morbid obesity 307928265 E66.01 BMI 42. wants mounjaro/z epboundPat ient denies fam hx of thyroid cancer, personal hx pancreatit is. Medication side effects were reviewed with patient and include MIC, pancreatit is, nausea, vomiting, stomach upset. Patient was shown pen and was shown how to clean area, inject pen, and how often to administer . [id number] JARED LOCKHART [facility] [address] [place] [address] 2023 13:48:06 2023 14:30:21 Morbid obesity 748269275 E66.01 BMI 42.8 on epbound 2.5 and [...] to administer . Adult heal th examination 655437377 Z00.00 here for labsincrea se zepboundst op sweetsdecl dilan all cancer screenings [id number] JARED LOCKHART [facility] [address] [place] [address] 07/15/2023 15:14:51 07/15/2023 15:24:54 [id number] Prosper Hernandez MD [facility] [address] [place] [address] 11/18/2023 13:45:23 11/18/2023 16:05:52 Chronic obstructive pulmonary disease 97284444 J44.9 Patient smoking 1 ppd. needs refills [...] today- prevnar 20 given 05/2022 Morbid obesity 308509484 E66.01 BMI 42.2 on ozempic .5 mg and will increase today. she denies any side effects.no weight lossadvise d stop buying sweets for homeshe is given a list of nutrition goals for each day including protein and veggies servingssh e verbalizes understand ing that if she does not sustain enough protein she will lose muscle mass Non-small cell lung cancer 999359064 C34.90 newly dx adenocarci noma of lung. undergoing evaluation to have surgery v radiationf ollowing Dr Cash montejo smoking, trying to quitsurgeo n: Dr Roberson m: Dr Lr [id number] Prosper Hernandez MD [facility] [address] [facility] [place] [address] 12/05/2023 17:03:12 12/05/2023 17:19:57 Bursitis of olecranon of right elbow 1139565783 47546 M70.21 x1 wk, increased swelling and redness [...] ates that she has radiation appt at [facility] tomorrow and will go to ED after appt [id number] Prosper Hernandez MD [facility] [address] [facility] [place] [address] 12/16/2023 12:34:09 12/16/2023 13:43:37 Closed fracture of right elbow 5209637473 2122742 S42.401K Right elbow pain 12/06/2023. xray shows soft tissue swelling posterior to the olecranon and proximal ulna (could be olecranon bursitis). small chronic nonuinted fracture with corticated margins at tip of coronoid process. Dyspnea 308678404 R06.00 02 stats 76% in office and c/o of worsening sob. need to r/o PE due to new lung cancer b COPD exacerbati on.sent to hospital, reluctant but agrees.did not accept ambulance ride. going to [facility] in personal car.PEX: decreased breath sounds LLQ. no wheezing. decreased air movement on expiration all lung bases. b/l palms erythemato us. [id number] Prosper Hernandez MD [facility] [address] [place] [address] 01/13/2024 13:50:19 01/13/2024 14:37:53 Sleep apnea 28218105 G47.30 BMI 41.3, htn, snoring, apnea, days time somnolence , COPD.- sleep study Morbid obesity 453189413 E66.01 BMI 41.3 on ozempic 2 mg and will increase today. she denies any side effects.no weight lossadvise d stop buying sweets for homeshe is given a list of nutrition goals for each day including protein and veggies servingssh e verbalizes understand ing that if she does not sustain enough protein she will lose muscle mass Moderate p ersistent asthma 146226530 J45.40 refill Administra tion of influenza vaccine 91193891 Z23 [id number] Prosper Hernandez MD [facility] [address] [place] [address] 04/23/2024 13:40:32 04/23/2024 14:31:08 Gynecologic examination 14461089 Z01.419 Pap obtained, unable to visualize entire cervix due to pain/atrop hy. obtained pap. will call with results.CB E performedB reast education provided Screening mammography 24 262207 Z12.31 missed appointmen thas not reschedule dnew order Abnormal foot pulse 6943 7003 R09.89 toes appear purple, mildly decreased PT pulses, unable to feel pedal pulses. will send to vascularno longer smokes but is a long time smoker Morbid obesity 504658220 E66.01 BMI 40.2 on ozempic 2 mg and will increase today. she denies any side effects.no weight lossadvise d stop buying sweets for homeshe is given a list of nutrition goals for each day including protein and veggies servingssh e verbalizes understand ing that if she does not sustain enough protein she will lose muscle mass [id number] Prosper Hernandez MD [facility] [address] [place] [address] 10/27/2024 13:47:08 10/27/2024 14:39:07 Morbid obesity 564129578 E66.01 BMI 42 on zepbound 5 mg and will increase today. she denies any side effects.no weight lossadvise d stop buying sweets for homeshe is given a list of nutrition goals for each day including protein and veggies servingssh e verbalizes understand ing that if she does not sustain enough protein she will lose muscle mass Chronic neck pain 380940 8806 107 M54.2 G89.29 5264299 cervical pain on palpations aw JARED MasEse Mahin 05/2023 and Was sent to physical therapy [...] Bursitis o f olecranon of right elbow 6388534530 10425 M70.21 [id number] Patient agrees to go see ortho. She will complete her antibiotic s. If she develops chills or fevers or worsening pain in her elbow she will go back to the ER. [id number] Prosper Hernandez MD [facility] [address] [place] [address] 03/15/2025 14:14:17 03/15/2025 15:56:59 Chronic obstructive pulmonary disease 18357634 J44.9 The patient's history of COPD, current wheezing, and dependence on oxygen therapy and CPAP indicate ongoing respirator y issues. The recent improvemen t in symptoms following hospital discharge suggests recovery from an exacerbati on. I advised her if she ever starts feeling worse we want to try to keep her out of the hospital. I encouraged her to reach out to me If this happens so we can mitigate risk to her health. Morbid obesity 578549340 E66.01 The patient's concerns about weight management and ineffectiv eness of the current Zepbound dosage suggest obesity is contributi ng to their overall condition, potentiall y impacting respirator y function and pain management . Screening mammography 24 973874 Z12.31 3088692972 she is due for breast cancer screening. We will order a mammogram for her to obtain next year. Screening for malignant neoplasm of colon 291025162 Z12.11 395210 she is due for colon cancer screening. She would prefer the Cologuard be sent to her home.She denies any bleeding in her stool. Requires i nfluenza virus vaccination 875879524 Z23 1876908 she is due for a flu vaccine at today's visit Ex-smoker 2168681 Z87.89 1 [id number] She is a former smoker. She understand s the health risks associated with that especially regarding her COPD. She understand s the benefits of smoking cessation and I congratula ricki her on no longer smoking Overweight 677510221 E66 .3 BMI: 42.6 INVESTIGATION CLERK advised patient to follow a well balanced diet and obtain regular exercise. Informatio nal handout provided. Degenerati on of lumbar intervertebral disc 09185299 M51.369 3363762195 The patient's neck and lower back pain, along with a history of degenerati ve disc disease, suggest ongoing musculoske letal issues, potentiall y worsened by inadequate pain management and limited interventi ons. she is using lidocaine patches that she states are helping. She is seeing pain management routinely. At next visit they are planning on giving her a back injection. Health Concerns Section Related Observation LastModified by Organization Detai ls LastModified Time None Recorded Concern Status LastModified by Organization Details LastModified Time None Recorded Advance Directives Directive None Recorded Payers Insurance Date Sequence Insurance Name Policy Number Policy Villegas Covered Member ID Villegas Member ID Guarantor Name 03/18/2025 2 [employer] [facility] Sherri Ramirez [id number] Sherri Ramirez 03/15/2025 1 [place] Sherri Ramirez [id number] Sherri Ramirez 03/15/2025 [place] [facility] Sherri Ramirez [id number] Sherri Ramirez 03/15/2025 2 [place] WHEN MEDICARE OR MEDICARE REPLACEMENT PRIMARY) Sherri Ramirez [id number] Sherri Ramirez 03/15/2025 1 [facility] [id number] Sherri Ramirez [id number] Sherri Ramirez 03/15/2025 1 [place] [facility] Sherri Ramirez [id number] Sherri Ramirez Notes Date Note Type Note Provider Name and Address Organization Details Recorded Time 12/16/2023 text/html here for elbow and my [...] to go to hospital. JARED LOCKHART Attn: Accounting, [address] [facility], [place], [address], [place] [facility] 12/16/2023 13:12:39 01/13/2024 text/html [...] on xanax?? JARED LOCKHART Attn: [address] [facility], [place], [address], [place] [facility] 01/13/2024 14:32:30 04/23/2024 text/html here for pap LMP: menopauseLast Pap: long time ago, does not rememberLast mammogram: many years agoFam hx: paternal aunt with breast ca age 70. denies cervical, uterine, ovarian cancers JARED LOCKHART Attn: Accounting, [address] [facility], [place], [address], [place] [facility] 04/23/2024 14:26:01 10/27/2024 text/html [...] pain management. JARED LOCKHART Attn: [address]ing[address] [place], [address], [facility] 10/27/2024 17:57:01 03/15/2025 text/html ROS as noted in the HPI Sherri is a 64-year-old female very pleasant. Overall she is doing very well at today's visit and feeling good. The patient presented with back pain, primarily located in the neck and lower back. The patient reported being diagnosed with degenerative disc disease and expressed that the pain management treatment had variable effectiveness. The patient had only received one injection as part of the pain management regimen and had started using lidocaine patches. The patient also mentioned having COPD and being placed on a CPAP machine, which improved their sleep and overall feeling. The patient used oxygen at home, typically two liters when active and three liters at night with the CPAP machine. The patient noted an improvement in their condition after a recent hospital stay but mentioned not tolerating certain pain medications due to COPD. The patient did not report using a walker but previously experienced falls, which were attributed to back problems. The patient expressed concern about weight management and discussed current medication for weight loss, Zepbound, which was not effective at the current dose. Idalia donaldson NP Attn: [address] [place], [address], [facility] 03/15/2025 15:42:16 OBGyn Episode No OBEpisode recorded.
--- OUTSIDE RECORDS SUMMARY | 2025-03-22 10:05 | XMS_ITS | Continuity of Care Document ---
Author Organization [facility] [place] Address [address] [place] [address] Care Team Providers Care Photo Lab Technician Name Role Phone CARMELA, MARK Primary Care Provider [phone] Assessment Encounter Date Assessment Date Assessment LastModified by Organization Details LastModified Time 03/15/2025 03/15/2025 Overall she is doing very well today. She denies chest pain shortness of breath or palpitations today she was hospitalized at [place] in December 2024 acroessmanmarsha Not available 03/15/2025 15:40:01 Plan of Treatment Reminders Order Date Submit Date Provider Last Modified By Organization Details Last Modified Time Details Appointments None recorded. Lab noninvasive colorectal cancer DNA + occult blood screening, QL, stool 2024 025 [facility], [address], [address], [place], [address], 5 14:39:12 lipid panel, serum 2024 025 [facility], [address] [place] [address], [address], [place], [address], 5 09:16:21 HbA1c (hemoglobin A1c), blood 2024 025 [facility], [facility] [place][note 2][facility], [address], [place], [address], 5 09:16:23 TSH + free T4, serum 2024 025 [facility], [address] [place] [address] [address], [address], [place], [address], 09:16:21 CMP, serum or plasma 2024 [facility], [address] [facility], [address], [place], [address], 09:16:22 CBC 2024 [facility], [address] [facility], [address], [place], [address], 09:16:24 Referral None recorded. Procedures None recorded. Surgeries None recorded. Imaging MAMMO, screening, bilateral [address] (Imaging), [address] [place] [address] [address], [place], [address], 15:56:59 Medication Orders Zepbound 12.5 mg/0.5 mL subcutaneou s pen injector 2024 [facility] 4032, [address] [facility], [place], [address], 14:39:00 budesonide- formoterol HFA 160 mcg-4.5 mcg/actuati on aerosol inhaler 2024 [id number], [address] [facility], [place], [place], [id number], 14:39:08 Patient TargetsNo targets recorded. Patient Instructions Encounter Date Encounter Id Patient Instructions Last Modified By Organization Details Last Modified Time 03/15/2025 [id number] A healthy lifestyle: care instructions acroessmanmarsha Not [...] 2 years or as indicated by [facility] Not available 03/15/2025 14:38:09 Treatment: - Continued [...] on the need for regular follow-up with curtain worker and pain management Follow-Up: - Plan to reassess effectiveness of increased Zepbound dosage - Follow-up with pain management for ongoing injections and evaluation Disposition: - Patient to message or call with updates on pain management and Zepbound effectiveness - Ordered mammogram and colorectal cancer screening to be completed at patient's convenience [facility] Not available 03/15/2025 15:35:22 Reason for Referral None Reported. Results Created Date Observation Date Name Description Value Unit Range Abnormal Flag Note LastModifiedBy Organization Detail LastModifiedTime 03/15/2003/16/2025 TSH+F REE T4 TSH 1.530 uIU/m L 0.450- 4.500 Not Available [facility] ([facility]) [address] [place], [address], 03/16/2025 09:16:20 03/15/20 25 03/16/2025 TSH+F REE T4 T4,free(dire ct) 1.08 NG/dL 0.82-1 .77 Not Available [facility] ([facility]) [address] [place], [address], 03/16/2025 09:16:20 03/15/20 25 03/16/2025 LIPID PANEL cholesterol, total 174 mg/dL 100-19 9 Not Available [facility] ([facility]) [address] [place], [address], 03/16/2025 09:16:21 03/15/20 25 03/16/2025 LIPID PANEL triglyceride s 106 mg/dL 0-149 Not Available [facility] ([facility]) [address] [facility], [place], [address], 03/16/2025 09:16:21 03/15/20 25 03/16/2025 LIPID PANEL HDL cholesterol 53 mg/dL >39 Not Available [facility]) [address] [facility], [place], [address], 03/16/2025 09:16:21 03/15/20 25 03/16/2025 LIPID PANEL VLDL cholesterol marie 19 mg/dL 5-40 Not Available [facility] ([facility]) [address] [place], [address], 03/16/2025 09:16:21 03/15/20 25 03/16/2025 LIPID PANEL LDL chol calc ([facility]) 102 mg/dL 0-99 above high normal Not Available [facility] ([facility]) [address] [facility], [place], [address], 03/16/2025 09:16:21 03/15/20 25 03/15/2025 COMP. METAB [...] renal failu re. Addit ional infor ida moreno may be found at [email or web address] org. Not Available [facility] ([facility]) [address] [facility] [place], [address], 03/16/2025 09:16:22 03/15/20 25 03/16/2025 COMP. METAB OLIC PANEL (14) glucose 81 mg/dL 70-99 Not Available [facility] ([facility]) [address] [facility] [place], [address], 03/16/2025 09:16:22 03/15/20 25 03/16/2025 COMP. METAB OLIC PANEL (14) BUN 14 mg/dL 8-27 Not Available [facility] ([facility]) [address] [facility] [place], [address], 03/16/2025 09:16:22 03/15/20 25 03/16/2025 COMP. METAB OLIC PANEL (14) creatinine 0.74 mg/dL 0.57-1 .00 Not Available [facility] ([facility]) [address] [facility], [place], [address], 03/16/2025 09:16:22 03/15/20 25 03/16/2025 COMP. METAB OLIC PANEL (14) eGFR 91 mL/mi n/1.7 3 >59 Not Available [facility] ([facility]) [address] [facility] [place], [address], 03/16/2025 09:16:22 03/15/20 25 03/16/2025 COMP. METAB OLIC PANEL (14) BUN/creatini ne ratio 19 12-28 Not Available [facility] ([facility]) [address] [facility] [place], [address], 03/16/2025 09:16:22 03/15/20 25 03/16/2025 COMP. METAB OLIC PANEL (14) sodium 140 mmol/ L 134-14 4 Not Available [facility] ([facility]) [address] [place], [address], 03/16/2025 09:16:22 03/15/20 25 03/16/2025 COMP. METAB OLIC PANEL (14) potassium 4.5 mmol/ L 3.5-5. 2 Not Available [facility] ([facility]) [address] [facility] [place], [address], 03/16/2025 09:16:22 03/15/20 25 03/16/2025 COMP. METAB OLIC PANEL (14) chloride 100 mmol/ L 96-106 Not Available [facility] ([facility]) [address] [facility] [place], [address], 03/16/2025 09:16:22 03/15/20 25 03/16/2025 COMP. METAB OLIC PANEL (14) carbon dioxide, total 26 mmol/ L 20-29 Not Available [facility] ([facility]) [address] [facility] [place], [address], 03/16/2025 09:16:22 03/15/20 25 03/16/2025 COMP. METAB OLIC PANEL (14) calcium 9.7 mg/dL 8.7-10 .3 Not Available [facility] ([facility]) [address] [facility] [place], [address], 03/16/2025 09:16:22 03/15/20 25 03/16/2025 COMP. METAB OLIC PANEL (14) protein, total 6.2 g/dL 6.0-8. 5 Not Available [facility] ([facility]) [address] [facility] [place], [address], 03/16/2025 09:16:22 03/15/20 25 03/16/2025 COMP. METAB OLIC PANEL (14) albumin 3.7 g/dL 3.9-4. 9 below low normal Not Available [facility] ([facility]) [address] [facility] [place], [address], 03/16/2025 09:16:22 03/15/20 25 03/16/2025 COMP. METAB OLIC PANEL (14) globulin, total 2.5 g/dL 1.5-4. 5 Not Available [facility] ([facility]) [address] [place], [address], 03/16/2025 09:16:22 03/15/20 25 03/16/2025 COMP. METAB OLIC PANEL (14) bilirubin, total 0.3 mg/dL 0.0-1. 2 Not Available [facility] ([facility]) [address] [place], [address], 03/16/2025 09:16:22 03/15/20 25 03/16/2025 COMP. METAB OLIC PANEL (14) alkaline phosphatase 196 IU/L 49-135 above high normal Not Available [facility] ([facility]) [address] [place], [address], 03/16/2025 09:16:22 03/15/20 25 03/16/2025 COMP. METAB OLIC PANEL (14) AST (SGOT) 22 IU/L 0-40 Not Available [facility] ([facility]) [address] [place], [address], 03/16/2025 09:16:22 03/15/20 25 03/16/2025 COMP. METAB OLIC PANEL (14) ALT (SGPT) 19 IU/L 0-32 Not Available [facility] ([facility]) [address] [place], [address], 03/16/2025 09:16:22 03/15/20 25 03/16/2025 HEMOG LOBIN A1C hemoglobin A1C 5.5 % 4.8-5. 6 Predi abete s: 5.7 - 6.4 Diabe sky: >6.4 Glyce dung contr ol for adult s with diabe sky: <7.0 Not Available [facility] ([facility]) [address] [place], [address], 03/16/2025 09:16:23 03/15/20 25 03/16/2025 CBC, PLATE LET, NO DIFFE RENTI AL WBC 8.3 x10e3 /uL 3.4-10 .8 Not Available [facility] ([facility]) [address] [facility], [place], [address], 03/16/2025 09:16:24 03/15/2003/16/2025 CBC, PLATE LET, NO DIFFE RENTI AL RBC 4.31 x10e6 /uL 3.77-5 .28 Not Available [facility] ([facility]) [address] [facility], [place], [address], 03/16/2025 09:16:24 03/15/2003/16/2025 CBC, PLATE LET, NO DIFFE RENTI AL hemoglobin 12.6 g/dL 11.1-1 5.9 Not Available [facility] ([facility]) [address] [facility], [place], [address], 03/16/2025 09:16:24 03/15/2003/16/2025 CBC, PLATE LET, NO DIFFE RENTI AL hematocrit 39.9 % 34.0-4 6.6 Not Available [facility] ([facility]) [address] [facility], [place], [address], 03/16/2025 09:16:24 03/15/2003/16/2025 CBC, PLATE LET, NO DIFFE RENTI AL MCV 93 fL 79-97 Not Available [facility] ([facility]) [address] [facility], [place], [address], 03/16/2025 09:16:24 03/15/2003/16/2025 CBC, PLATE LET, NO DIFFE RENTI AL MCH 29.2 pg 26.6-3 3.0 Not Available [facility] ([facility]) [address] [facility], [place], [address], 03/16/2025 09:16:24 03/15/20 25 03/16/2025 CBC, PLATE LET, NO DIFFE RENTI AL MCHC 31.6 g/dL 31.5-3 5.7 Not Available [facility] ([facility]) [address] [facility], [place], [address], 03/16/2025 09:16:24 03/15/20 25 03/16/2025 CBC, PLATE LET, NO DIFFE RENTI AL RDW 13.7 % 11.7-1 5.4 Not Available [facility] ([facility]) [address] [facility], [place], [address], 03/16/2025 09:16:24 03/15/20 25 03/16/2025 CBC, PLATE LET, NO DIFFE RENTI AL platelets 351 x10e3 /uL 150-45 0 Not Available [facility] ([facility]) [address] [facility], [place], [address], 03/16/2025 09:16:24 02/17/20 25 02/16/2025 6 minut e walk test* No observ ation record ed. [email or web address] [place] [address], [address], 02/17/2025 08:07:41 02/17/20 25 02/16/2025 PFT, compl ete No observ ation record ed. [email or web address] [place] [address], [address], 02/17/2025 08:07:46 Result Notes None recorded. Problems Name Problem SNOMED Code Status Onset Date Resolution Date Notes Provider Name and Address Organization Details Recorded Time [employer] n 61722959 Active 2021 JARED LOCKHART Attn: Zeb rees,[address] [facility], [place], [address], [facility] 15:26:15 Obesity 545114001 Active 2021 JARED LOCKHART Attn: Zeb rees,[address] [facility], [place], [address], [place] - [facility] 2 15:26:17 Prediabetes 934118101 Active 2021 JARED LOCKHART Attn: Zeb g,[address] [facility], [place], [address], [place] [facility] 2 15:26:18 Smoker 17837794 Active 2021 JARED LOCKHART Attn: Zeb rees,[address] [facility], [place], [address], [place] [facility] 2 15:26:20 Chronic obstructive pulmonary disease 21601403 Active 2021 JARED LOCKHART Attn: Zeb rees,[address] [place], [address], [place] [facility] 2 15:26:21 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 2021 JARED LOCKHART Attn: Donnaluis fernando rees,[address] [place], [address], [place] [facility] 2 09:44:58 Neck pain 18804494 Active 2021 JARED LOCKHART Attn: Donnaluis fernando rees,[address] [place], [address], [place] [facility] 2 09:45:00 Anxiety 77664051 Active 2021 JARED LOCKHART Attn: Donnaluis fernando rees,[address] [place], [address], [place] [facility] 2 09:45:01 Thoracic back pain 742555228 Active 2021 JARED LOCKHART Attn: Donnaluis fernando rees,[address] [place], [address], [place] [facility] 2 09:45:02 Screening for malignant neoplasm of respiratory tract Active 2021 JARED LOCKHART Attn: Zeb negrita,[address] [place], [address], [place] [facility] 2 09:45:05 Dyspnea on exertion 01099124 Active 2022 JARED LOCKHART Attn: Zeb rees,[address] [facility], [place], [address], [place] [facility] 3 13:24:31 Degeneratio n of lumbar interverteb ral disc 21065002 Active 2022 JARED LOCKHART Attn: Accountluis fernando g,[address] [facility], [place], [address], [place] [facility] 3 14:12:31 Degeneratio n of cervical interverteb ral disc 12990257 Active 2022 JARED LOCKHART Attn: Accountluis fernando rees,[address] [facility], [place], [address], [place] [facility] 3 09:37:49 Morbid obesity 714027020 Active 2022 JARED LOCKHART Attn: Accountluis fernando rees,[address] [facility], [place], [address], [place] [facility] 3 12:53:33 Sleep apnea 25646039 Active 2022 JARED LOCKHART Attn: Accountluis fernando rees,[address] [facility], [place], [address], [place] [facility] 3 13:21:37 Non-small cell lung cancer 985307904 Active 2023 JARED LOCKHART Attn: Accountin g,[address] [facility], [place], [address], [place] [facility] 4 16:00:44 Dyspnea 246765316 Active 2023 JARED LOCKHART Attn: Accountluis fernando g,[address] [facility], [place], [address], [place] [facility] 4 13:10:35 Closed fracture of right elbow 2479785811984 9103 Active 2023 JARED LOCKHART Attn: Accountluis fernando g,[address], [place], [address], [place] - [facility] 4 13:10:39 Chronic neck pain 8291362569371 Active 2024 JARED LOCKHART Attn: Accountluis fernando g,[address], [place], [address], [place] [facility] 5 14:31:01 Bursitis of olecranon of right elbow 0857487811147 08 Active 2024 JARED LOCKHART Attn: Accountluis fernando g,[address], [place], [address], [place] - [facility] 5 17:56:02 Problem Notes None recorded. Medical Equipment None Reported. Allergies Allergen ID Allergen Name Allergen Category Reaction Reaction Severity Criticality Documentation Date Start Date Code Code System Note Provider Name and Address Organization Details Recorded Time 942190 Zoloft medicatio n rash Not available Not available 04/22/2018 07753 RxNorm BARBARA Dela Cruz, [place] - [facility] 9 15:48:42 914194 sertralin e medicatio n rash Not available [facility] 01/25/20252021 97637 RxNorm Not Available [place] - External Data Service - prod 12:40:29 [...] active Not Available Not Available Not Malachi snyder [employer] USE DIRECTED active Not [...] by subcutane ous route for 28 days. 05/01/ 2025 07/29 /2025 completed Not Available Not Available Not Available Vitals Date Recorded Body height Body mass index (BMI) Body weight Heart rate Oxygen saturation Systolic And Diastolic Provider Name and Address Organization Details Last Updated DateTime 5 152.4 cm 42.6 kg/m2 91047.1 4 g 80 /min 97 % 136/84 mm[Hg] Idalia Guillermo MA [place] - [facility] 5 14:22:37 Social History Question Answer Notes LastModified by Organizat ion Details LastModified Time Tobacco Smoking Status Former Smoker quit 2023 JARED LOCKHART Attn: Accounting,[address] [place], [address], [place] - [facility] 01/13/2024 14:04:02 What Is Your Level Of Caffeine Consumption? None Information not available 06/15/2019 How Much Tobacco Do You Chew? None Information not available 06/15/2019 In The 14 Days Before Symptom Onset, Have You Had Close Contact With A Laboratory-confir med COVID-19 While That Case Was Ill? No [email or web address] Information not available 01/21/2020 In The 14 Days Before Symptom Onset, Have You Had Close Contact With A Person Who Is Under Investigation For COVID-19 While That Person Was Ill? No [email or web address] Information not available 01/21/2020 Have You Been To An Area Known To Be High Risk For COVID-19? No [email or web address] Information not available 01/21/2020 What Type Of Diet Are You Following? REGULAR [email or web address] Information not available 01/21/2020 Which Illicit Or Recreational Drugs Have You Used? None Information not available 06/15/2019 Education 12 [email or web address] Information no t available 01/21/2020 Are There Any Guns Present In Your Home? No [email or web address] Information not available 01/21/2020 Marital Status [email or web address] Informatio n not available 01/21/2020 What Was The Date Of Your Most Recent Tobacco Screening? 03/15/2025 Information not available 03/15/2025 Performs Monthly Self-breast Exam? Yes [email or web address] Information no t available 01/21/2020 Seat Belts Used Routinely Yes [email or web address] Information not available 01/21/2020 Smoke Alarm In Home Yes [email or web address] Information not available 01/21/2020 Do You Have Smoke And Carbon Monoxide Detectors In Your Home? Yes Information not available 06/21/2021 At What Age Did You Start Smoking Tobacco? 17 Information not available 06/15/2019 Are You Passively Exposed To Smoke? No Information no t available 06/21/2021 How Much Tobacco Do You Smoke? 0.5 PPD Information not available 06/15/2019 Do You Use Sunscreen Routinely? 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 Never used electronic cigarettes Information not available 06/15/2019 What is your exercise level? None [email or web address] Information not available 01/21/2020 Mental Status None [...] Eating Disorder N Anemia N Heart Attack (DC) N Anxiety Disorder Y Diabetes N Muscle, [...] [facility] 06/06/2022 14:16:19 Pneumococcal conjugate PCV20, polysaccharide [id number] conjugate, adjuvant, PF 3 completed JARED LOCKHART Attn: Accounting,[address] [place], [address], [place] [facility] 06/19/2022 13:21:40 Influenza, high-dose, trivalent, PF 4 completed JARED LOCKHART Attn: Accounting,[address] [place], [address], [place] [facility] 01/13/2024 14:31:27 Influenza, split virus, trivalent, PF 5 completed Jacqueline Black MA null, [place] [facility] 03/15/2025 14:53:38 Past Encounters Encounter ID Performer Location Encounter Start Date Encounter Closed Date Diagnosis/Indication Diagnosis SNOMED-CT Code Diagnosis ICD10 Code Diagnosis IMO Codes Diagnosis Note [id number] Prosper Hernandez MD [facility] [address] [place] [address] 03/15/2025 14:14:17 03/15/2025 15:56:59 Chronic obstructive pulmonary disease 87319289 J44.9 The patient's history of COPD, current [...] mitigate risk to her health. Morbid obesity 101335619 E66.01 The patient's concerns about weight management and ineffectiv eness of the current Zepbound dosage suggest obesity is contributi ng to their overall condition, potentiall y impacting respirator y function and pain management . Screening mammography 24 526351 Z12.31 [id number] she is due for breast cancer screening. We will order a mammogram for her to obtain next year. Screening for malignant neoplasm of colon 385052724 Z12.11 [id number] she is due for colon cancer screening. She would prefer the Cologuard be sent to her home.She denies any bleeding in her stool. Requires i nfluenza virus vaccination 323329737 Z23 6571535 she is due for a flu vaccine at today's visit Ex-smoker 5934340 Z87.89 1 296713 She is a former smoker. She understand s the health risks associated with that especially regarding her COPD. She understand s the benefits of smoking cessation and I congratula ricki her on no longer smoking Overweight 204472660 E66 .3 BMI: 42.6 GARBAGE PICK UP WORKER advised patient to follow a well balanced diet and obtain regular exercise. Informatio nal handout provided. Degenerati on of lumbar intervertebral disc 40512091 M51.369 [id number] The patient's neck and lower back pain, [...] Member ID Villegas Member ID Guarantor Name 03/15/2025 1 MEDICARE-ID (MEDICARE) Sherri Ramirez [id number] Sherri Ramirez 03/15/2025 2 [facility] [employer] [facility] Sherri Ramirez [id number] Sherri Ramirez Notes Date Note Type Note Provider Name and Address Organization Details Recorded Time 03/15/2025 text/html ROS as noted in the [...] dose. Idalia donaldson NP Attn: Accounting,[address] [place], [address], [facility] - [facility] 03/15/2025 15:42:16 OBGyn Episode No OBEpisode recorded.
--- OUTSIDE RECORDS SUMMARY | 2025-03-22 10:05 | XMS_ITS | Clinical Summary ---
Author Organization [facility] Barbara Dunbar Address [address] [place] [address] Care Team Providers Care Art Psychotherapist Or Therapist Name Role Phone Unavailable Primary Care Provider [...] Encounters Date Type Department Care Team Description 03/09/2025 External Device Data STL ABSTRACTION Provider, Abstract 02/16/2025 External Device Data ST[facility] ABSTRACTION Provider, Abstract 01/27/2025 External Device Data ST[facility] ABSTRACTION Provider, Abstract 01/27/2025 External Device Data STL ABSTRACTION Provider, Abstract [...] st Contact Info) Description 04/05/2025 1:15 PM APPRENTICE TECHNICIAN Office Visit [facility] - [address] [place] [address] Dakota Watkins MD [address] [facility] [address] [place] [address] Health Maintenance Due Date Last [...] MEDICAID [place] MEDICARE PART A AND B [employer]
--- OUTSIDE RECORDS SUMMARY | 2025-03-22 10:05 | XMS_ITS | Clinical Summary ---
Author Organization [facility] Address [address] [place] [address] Care Team Providers Care Ict Developer Name Role Phone Unknown, Provider Primary Care Provider Unavaila ble Source Comments [facility],non-owned Affiliates and Associated Physician Practices is amultiple site organization consisting of ambulatory clinics and hospital sitesin [place], [place], [place] and [place]. This disclosure is being madepursuant to the Care Everywhere program and may not contain all information available regarding this patient. Last updated 17.[facility] [employer] Allergies Active Allergy Reactions Criticality Noted Date [...] 2 - PCV) 1980 PAP SMEAR 1982 Respiratory Syncytial Virus (RSV) Vaccine Pt: or over 60 yrs (1 - Risk 50-74 years 1-dose series) 07/10/2011 ZOSTER VACCINE (1 of 2) 07/10/2011 SCREENING FOR DIABETES 06/17/2023 DEPRESSION SCREENING 04/01/2024 [...] to complete this topic Insurance MEDICAID - [facility] MEDICAID - [place] Member Subscriber Plan / Payer (Ef fective 2023-Present) Name:Arnav Ramirez Member ID:Not on file Relation to Subscriber:Self Name:Nisha Ramirezne Payer ID:Not on file Group ID:Not on file Type:Medicaid [place] Address: [place] [id number] * Guarantor: ARNAV RAMIREZ Account Type Relation to Patient Date of Phone Billing Address Personal/Family [address] [place], [place] [phone] MED[place]ID - [place] Member Subscriber Plan / Payer (Ef fective for All Dates) Name:Arnav Ramirez Relation to Subscriber:Self Name:Arnav Ramirez Payer ID:Not on file Group ID:Not on file Type:Medicaid [place] Address: [place] [phone] SELF PAY NO INSURANCE Member Subscriber Plan / Payer (Ef fective for All Dates) Name:Arnav Ramirez Member ID:Not on file Relation to Subscriber:Not on file Name:ARNAV RAMIREZ Subscriber ID:Not on file (Home) Address: [address] [place] [address] Payer ID:Not on file Group ID:Not on file Type:Self Pay Address: [place], [place] * Guarantor: ARNAV RAMIREZ Account Type Relation to Patient Date of Phone Billing Address Personal/Family [address] [place] [address] MED[place]ID - [place] Member Subscriber Plan / Payer (Ef fective for All Dates) Name:Arnav Ramirez Relation to Subscriber:Self Name:Arnav Ramirez Payer ID:Not on file Group ID:Not on file Type:Medicaid [place] Address: [place] [phone] SELF PAY NO INSURANCE Member Subscriber Plan / Payer (Ef fective for All Dates) Name:Arnav Ramirez Member ID:Not on file Relation to Subscriber:Not on file Name:ARNAV RAMIREZ Subscriber ID:Not on file (Home) Address: [address] [place] [phone] Payer ID:Not on file Group ID:Not on file Type:Self Pay Address: [place], [place] * Guarantor: ARNAV RAMIREZ Account Type Relation to Patient Date of Phone Billing Address Personal/Family [address] [place] [phone] MEDICAID - [place] SELF PAY NO INSURANCE Member Subscriber Plan / Payer (Ef fective for All Dates) Name:Arnav Ramirez Member ID:Not on file Relation to Subscriber:Not on file Name:ARNAV RAMIREZ Subscriber ID:Not on file (Home) Address: [address] [place] [phone] Payer ID:Not on file Group ID:Not on file Type:Self Pay Address: [place], [place] Care Teams Ict Developer Relationship Specialty Start Date End Date Unknown, Provider PCP - General 06/17/23
== END 2025-03-22 09:10 | disposition home or self-care (01) ==
PROVIDERS: PCP Physician Assistant; Visit Provider Internal Medicine Hematology & Oncology
DX: C34.12 Malignant neoplasm of upper lobe, left bronchus or lung (principal); J43.9 Emphysema, unspecified
CPT/HCPCS: 71260; Q9967